=== PATIENT | male | born 1950 | race Caucasian/White ===

== ENCOUNTER 2022-12-17 10:45 | Outpatient (OUT) | payer OTHER, SELFPAY ==
--- NOTE | 2022-12-17 11:13 | XR_ITS ---
[address] [address] Patient Name: IVIS GAN MRN: [id number] date: 1950 Sex: M Assigned Patient Location: [facility] Current Patient Location: [facility] Accession/Order Number: [id number] Exam Date: 12/17/2022 11:06 Report Date: 12/17/2022 11:38 At the request of: SHAIKH MARY Procedure: XR clavicle RT PROCEDURE: XR clavicle RT COMPARISON: None. HISTORY: Pain in clavicular joint M25.519 FINDINGS: BONES:No acute fracture or dislocation. Moderate glenohumeral and acromioclavicular joint osteoarthropathy with joint space narrowing marginal osteophyte formation. Bulky heterotopic ossification superior acromioclavicular joint SOFT TISSUES:Negative. No visible soft tissue swelling. EFFUSION:None visible. OTHER: Negative. IMPRESSION: Osteoarthritis Electronically authenticated by: ALEKSANDAR JOSEPH Date: 12/17/2022 11:38
== END 2022-12-17 10:46 | disposition home or self-care (01) ==
LOC: RAD 10:58
PROVIDERS: PCP Internal Medicine; Visit Provider Internal Medicine
DX: M25.511 Pain in right shoulder (principal); M19.011 Primary osteoarthritis, right shoulder
CPT/HCPCS: 73000

== ENCOUNTER 2023-02-17 08:52 | Outpatient (OUT) | payer OTHER, SELFPAY ==
--- NOTE | 2023-02-17 09:03 | ECG_ITS ---
[facility] Test Date: 2023-02-17 Pat Name: IVIS GAN Department: Room: - Gender: Male Founding Partner: : 1950 Requested By: [id number] Order Number: [id number] Reading MD: ANABEL PAEZ Measurements Intervals [place] Rate: 60 P: 59 [place]: 187 QRS: 60 QRSD: 95 T: 45 QT: 420 QTc: 420 Interpretive Statements SINUS RHYTHM WITH SINUS ARRHYTHMIA No previous ECG available for comparison Electronically Signed On 02-18-2023 7:12:30 EDT by ANABEL PAEZ
[2023-02-17 09:11] LABS: Basophils Absolute Auto 0.1 10^3/uL (0.0-0.1); Basophils Percent Auto 0.7 % (0.2-2.0); Eosinophils Absolute Auto 0.2 10^3/uL (0.0-0.7); Eosinophils Percent Auto 3.2 % (0.9-7.0); Hematocrit 40.7 % (42.0-54.0); Hemoglobin 12.9 g/dL (14.0-18.0); Immature Granulocytes Abs Auto 0.03 10^3/uL (0.00-0.03); Immature Granulocytes Pct Auto 0.4 % (0.0-0.5); Lymphocytes Absolute Auto 1.5 10^3/uL (1.2-3.8); Lymphocytes Percent Auto 21.7 % (20.5-60.0); Mean Corpuscular HGB Conc 31.7 g/dL (29.9-35.2); Mean Corpuscular Hemoglobin 26.4 pg (25.9-34.0); Mean Corpuscular Volume 83.4 fL (80.0-94.0); Mean Platelet Volume 10.2 fL (9.5-13.5); Monocytes Absolute Auto 0.5 10^3/uL (0.3-0.8); Monocytes Percent Auto 7.5 % (1.7-12.0); Neutrophils Absolute Auto 4.5 10^3/uL (1.4-6.5); Neutrophils Percent Auto 66.5 % (43.0-75.0); Platelet Count 255 10^3/uL (150-450); Red Blood Count 4.88 10^6/uL (4.70-6.10); Red Cell Distribution Width 19.9 % (11.0-15.0); White Blood Count 6.8 10^3/uL (4.0-11.0)
[2023-02-17 09:34] LABS: Alanine Aminotransferase 20 U/L (16-63); Albumin Globulin Ratio 0.9; Albumin Level 3.3 g/dL (3.4-5.0); Alkaline Phosphatase 101 U/L (46-116); Anion Gap 12.9; Aspartate Amino Transferase 23 U/L (15-37); BUN Creatinine Ratio 14.5; Bilirubin Total 0.4 mg/dL (0.2-1.0); Calcium 8.8 mg/dL (8.5-10.1); Carbon Dioxide 26.5 mmol/L (21.0-32.0); Chloride 105 mmol/L (98-107); Estimated GFR (African America >60 (>=60); Estimated GFR (Non-African Ame >60 (>=60); Globulin 3.7 g/dL; Glucose 106 mg/dL (74-106); Potassium 4.4 mmol/L (3.5-5.1); Sodium 140 mmol/L (136-145)
[2023-02-17 09:35] LABS: INR 0.98; Partial Thromboplastin Time 28.5 sec (22.3-36.2); Prothrombin Time 10.4 sec (9.0-11.6)
== END 2023-02-17 08:53 | disposition home or self-care (01) ==
LOC: LAB 08:54
PROVIDERS: PCP Internal Medicine; Visit Provider Orthopaedic Surgery
DX: Z01.818 Encounter for other preprocedural examination (principal); Z79.82 Long term (current) use of aspirin
CPT/HCPCS: 36415; 80053; 85025; 85610; 85730; 93005

== ENCOUNTER 2023-03-03 11:24 | Outpatient (OUT) | payer OTHER, SELFPAY ==
--- NOTE | 2023-03-03 12:20 | PM.PRESUREVA ---
History of Present Illness History of Present Illness Chief complaint: right carpal tunnel syndrome Narrative: Patient presents for preadmission testing. Please see HPI from Dr. Ortega dated 02/17/2023. Review of Systems ROS Narrative Please see ROS from Dr. Ortega dated 02/09/2023. [facility] Medical History (Updated 03/03/23 @ 11:45 by Erica Zimmerman NP) (2019) Surgical History (Updated 03/03/23 @ 12:19 by Erica Zimmerman NP) Family History (Updated 03/03/23 @ 11:42 by Erica Zimmerman NP) Other Family history of breast cancer Social History (Updated 03/03/23 @ 11:37 by Erica Zimmerman NP) Within the past year, how often did you have a drink containing alcohol: 4 or more times a week Within the past year, how many standard drinks containing alcohol did you have on a typical day: 5 or 6 Smoking status: Former smoker Non-prescribed substance use: denies use Highest level of school completed/degree received: high school graduate Meds Home Medications and Allergies Home Medications Medication Instructions Recorded Confirmed Type albuterol sulfate 90 mcg/actuation 2 inh inhalation Q6H PRN shortness 03/03/23 03/03/23 History aerosol inhaler of breath or wheezing aspirin 81 mg chewable tablet 1 tab PO QDAY 03/03/23 03/03/23 History budesonide 0.25 mg/2 mL suspension 0.25 mg inhalation Q12H 03/03/23 03/03/23 History for nebulization citalopram 20 mg tablet 20 mg PO QDAY 03/03/23 03/03/23 History losartan 50 mg tablet 50 mg PO QDAY 03/03/23 03/03/23 History pregabalin 150 mg capsule 150 mg PO Q8H 03/03/23 03/03/23 History ropinirole 0.5 mg tablet 0.5 mg PO QPM 03/03/23 03/03/23 History rosuvastatin 20 mg tablet 20 mg PO QDAY 03/03/23 03/03/23 History tamsulosin 0.4 mg capsule 0.4 mg PO Q24H 03/03/23 03/03/23 History Allergies Allergy/AdvReac Type Severity Reaction Status Date / Time baclofen Allergy Verified 03/03/23 11:31 cyclobenzaprine Allergy Verified 03/03/23 11:31 [From Flexeril] onabotulinumtoxinA Allergy pain Verified 03/03/23 11:31 [From Botox] Exam Narrative Exam Narrative: Constitutional: Awake, alert, comfortable, well-appearing, nontoxic, interactive, vital signs as charted Head: Normocephalic, atraumatic ENT: Poor dentition Neck: Supple, normal appearance, normal range of motion, no meningeal signs, no lymphadenopathy Respiratory: No respiratory distress, breath sounds clear Cardiovascular: Regular rate and rhythm, strong and regular heart tones Musculoskeletal: Patient ambulates with an antalgic gait assisted by a cane, generalized left leg weakness, hand grasps strong and equal bilaterally Skin: No rashes or induration, no lesions, only visible skin inspected Neuro: Decreased sensation left upper and lower extremities Psychiatric: Oriented ?3, normal affect Assessment and Plan Assessment and Plan (1) Carpal tunnel syndrome: Plan Right endoscopic carpal tunnel release scheduled with Dr. Ortega 03/10/2023.
== END 2023-03-03 11:25 | disposition home or self-care (01) ==
LOC: PST 11:24
PROVIDERS: PCP Internal Medicine; Visit Provider Orthopaedic Surgery
DX: Z01.818 Encounter for other preprocedural examination (principal); G56.01 Carpal tunnel syndrome, right upper limb; Z79.01 Long term (current) use of anticoagulants
CPT/HCPCS: 80053; 85610; 85730; G0463

== ENCOUNTER 2023-03-10 09:56 | Day surgery (SDC) | payer OTHER, SELFPAY ==
[2023-03-03 12:09] VITALS: BP 146/86; PULSE 71; RESP 20; TEMP 36.6; O2SAT 98; BMI 31.3
[2023-03-10] VITALS (11 sets, daily range): BP systolic 126–171; BP diastolic 52–92; PULSE 63–75; RESP 13–20; TEMP 36.2–36.3; O2SAT 94–98; BMI 31.3
[2023-03-10] MEDS: LACTATED RINGER'S SOLUTION 1,000 ML 50 ML IV (10:25)
[2023-03-10] MEDS: CEFAZOLIN SODIUM/DEXTROSE,ISO 2 GM/50 ML PIGGYBACK IV (11:40)
[2023-03-10] MEDS: BUPIVACAINE HCL 0.5% PF 50 MG/10 ML VIAL INJ (12:04)
[2023-03-10] MEDS: LIDOCAINE HCL 1%-EPINEPHRINE 1:100,000 10 ML MDV INJ (12:04)
--- NOTE | 2023-03-10 12:41 | PM.ORPRC ---
Procedure Note Date of procedure: 03/10/23 Pre-op diagnosis: Right carpal tunnel syndrome Post-op diagnosis: same as pre-op Procedure: Operation performed: Right endoscopic carpal tunnel release Procedure: After informed consent was obtained the patient was brought to the operating room where a general anesthetic was administered. A well-padded proximal arm tourniquet was placed in the right arm was prepped and draped in the usual sterile fashion. Using 5 mL 1% lidocaine with epinephrine and 5 mL 0.5% Marcaine plain local anesthetic was administered at the operative site. The arm was elevated, exsanguinated, and the tourniquet was inflated to 200 mmHg. A 1 cm incision was made in the distal wrist crease just ulnar to the palmaris longus. Blunt dissection was carried down to the forearm fascia and a U based flap was created in the fascia. Fascia was incised for 2 cm proximally under direct visualization. Attention was next turned to the endoscopic carpal tunnel release. Synovial elevator was used clear the underside of the transverse carpal ligament of soft tissue. Sequential dilators were placed. The endoscopic carpal tunnel release instrument was then placed transverse fibers were identified and incised from distal to proximal. Complete separation was achieved. Tourniquet is deflated. Hemostasis achieved with bipolar cautery. Wound was irrigated and closed with a nylon suture. Sterile dressing was placed. Patient was awakened and brought to the recovery in stable condition. There were no intraoperative or immediate postoperative complications. Anesthesia: [facility] Surgeon: London Ortega Estimated blood loss (mL): 2 Pathology: none sent Condition: stable Disposition: PACU
== END 2023-03-10 13:25 | disposition home or self-care (01) ==
PROVIDERS: PCP Internal Medicine; Visit Provider Orthopaedic Surgery
PROC: (CPT 29848; principal; 2023-03-10 11:00)
DX: G56.01 Carpal tunnel syndrome, right upper limb (principal); Z86.73 Personal history of transient ischemic attack (TIA), and cerebral infarction without residual deficits; Z79.82 Long term (current) use of aspirin; E78.00 Pure hypercholesterolemia, unspecified; I10 Essential (primary) hypertension; N40.0 Benign prostatic hyperplasia without lower urinary tract symptoms; G25.81 Restless legs syndrome; Z87.891 Personal history of nicotine dependence
CPT/HCPCS: 29848; J2704

== ENCOUNTER 2023-05-14 08:37 | Outpatient (OUT) | payer OTHER, SELFPAY ==
--- NOTE | 2023-05-14 08:41 | CT_ITS ---
[address] [address] Patient Name: IVIS GAN MRN: [id number] date: 1950 Sex: M Assigned Patient Location: CT Current Patient Location: Accession/Order Number: [id number] Exam Date: 05/14/2023 08:53 Report Date: 05/16/2023 07:24 At the request of: SHAIKH MARY Procedure: CT lung screening low-dose EXAMINATION: CT lung screening low-dose HISTORY: History Of Nicotine Dependence Z87.891 COMPARISON: No relevant comparison available. TECHNIQUE: Axial, Coronal, and Sagittal images were created without the administration of IV contrast material. Dose reduction techniques were achieved by using automated exposure control and/or adjustment of mA and/or kV according to patient size and/or use of iterative reconstruction technique. FINDINGS: LUNGS: Irregular opacity and stranding within posterior right costophrenic angle. Small subtle opacity within left lateral costophrenic angle. PLEURA: No mass, effusion, or pneumothorax. VASCULATURE: No abnormality. GURMEET: No mass or pathologic adenopathy. MEDIASTINUM: No mass or pathologic adenopathy. CARDIAC: Atherosclerotic coronary artery disease. No pericardial effusion. AORTA: No aneurysm or dissection. CHEST WALL: No mass or axillary adenopathy BONES: Subacute fractures of the posterior right 10th and 11th ribs. LIMITED ABDOMEN: No suspicious findings. Limited images of the upper abdomen. OTHER: Negative. CT/CT lung screening low-dose IMPRESSION: 1. Lung-RADS Category 3- Probably benign. Probably benign finding(s)- short term follow up suggested; includes nodules with a low likelihood of becoming a clinically active cancer. Six month LDCT. 2. Irregular opacity and stranding within posterior right lung base overlies the subacute right 10th and 11th rib fractures is suspected represents atelectasis or scarring. Follow-up to document clearing and/or stability is recommended. 3. Opacity within lateral left costophrenic angles also more suggestive of atelectasis. This could be evaluated on follow-up as well. Electronically authenticated by: IDA ZAFAR Date: 05/16/2023 07:24
== END 2023-05-14 08:38 | disposition home or self-care (01) ==
LOC: CT 08:37
PROVIDERS: PCP Internal Medicine; Visit Provider Internal Medicine
DX: Z87.891 Personal history of nicotine dependence (principal); G25.81 Restless legs syndrome; I10 Essential (primary) hypertension; E78.5 Hyperlipidemia, unspecified; R91.8 Other nonspecific abnormal finding of lung field
CPT/HCPCS: 71271

== ENCOUNTER 2023-05-14 09:06 | Outpatient (OUT) | payer OTHER, SELFPAY ==
[2023-05-14 09:24] LABS: Basophils Percent Auto 0.5 % (0.2-2.0); Eosinophils Absolute Auto 0.3 10^3/uL (0.0-0.7); Eosinophils Percent Auto 5.9 % (0.9-7.0); Hematocrit 40.6 % (42.0-54.0); Hemoglobin 12.9 g/dL (14.0-18.0); Immature Granulocytes Abs Auto 0.02 10^3/uL (0.00-0.03); Immature Granulocytes Pct Auto 0.3 % (0.0-0.5); Lymphocytes Absolute Auto 1.9 10^3/uL (1.2-3.8); Lymphocytes Percent Auto 32.1 % (20.5-60.0); Mean Corpuscular HGB Conc 31.8 g/dL (29.9-35.2); Mean Corpuscular Hemoglobin 28.1 pg (25.9-34.0); Mean Corpuscular Volume 88.5 fL (80.0-94.0); Mean Platelet Volume 10.9 fL (9.5-13.5); Monocytes Absolute Auto 0.4 10^3/uL (0.3-0.8); Monocytes Percent Auto 6.2 % (1.7-12.0); Neutrophils Absolute Auto 3.2 10^3/uL (1.4-6.5); Platelet Count 177 10^3/uL (150-450); Red Blood Count 4.59 10^6/uL (4.70-6.10); Red Cell Distribution Width 17.4 % (11.0-15.0); White Blood Count 5.8 10^3/uL (4.0-11.0)
[2023-05-14 10:06] LABS: Alanine Aminotransferase 20 U/L (16-63); Albumin Globulin Ratio 1.1; Albumin Level 3.3 g/dL (3.4-5.0); Alkaline Phosphatase 93 U/L (46-116); Anion Gap 12.3; Aspartate Amino Transferase 20 U/L (15-37); BUN Creatinine Ratio 11.1; Bilirubin Total 0.4 mg/dL (0.2-1.0); Calcium 8.4 mg/dL (8.5-10.1); Carbon Dioxide 28.7 mmol/L (21.0-32.0); Chloride 104 mmol/L (98-107); Cholesterol 92 mg/dL (<=200); Estimated GFR (African America >60 (>=60); Estimated GFR (Non-African Ame >60 (>=60); Globulin 3.1 g/dL; Glucose 93 mg/dL (74-106); HDL Cholesterol 47 mg/dL (40-60); Sodium 141 mmol/L (136-145); Total Protein 6.4 g/dL (6.4-8.2); Triglycerides 50 mg/dL (<=150)
== END 2023-05-14 09:07 | disposition home or self-care (01) ==
LOC: LAB 09:08
PROVIDERS: PCP Internal Medicine; Visit Provider Internal Medicine
DX: G25.81 Restless legs syndrome (principal); Z87.891 Personal history of nicotine dependence; I10 Essential (primary) hypertension; E78.5 Hyperlipidemia, unspecified; R91.8 Other nonspecific abnormal finding of lung field
CPT/HCPCS: 36415; 71271; 80053; 80061; 82728; 85025

== ENCOUNTER 2023-07-07 20:49 | Outpatient (OUT) | payer MEDICARE, SELFPAY ==
--- OUTSIDE RECORDS SUMMARY | 2023-07-07 20:53 | XMS_ITS | CCD ---
Author Name Unknown Address [address] [place] [address] Organization [facility] Care Team Providers Care Clinical Care Leader Name Role Phone SHAIKH HERNANDEZ Attending Unavailable Encounters Encounter Date Encounter Type Care Provider Facility Start: 06-24-2023 End: 06-24-2023 ambulatory SHAIKH MARY Not Available Payers Date Payer Category Payer Medicare [id number] 1950 Unknown [id number] Summary Purpose Family History No Family History Records Found Advance Directives No Advanced Directives Records Found Additional Source Comments (unrecognized sect ion and content) No Status Records Found INFORMATION SOURCE (unrecogn ized section and content) DATE CREATED AUTHOR 06/25/2023 [facility] EPIC FOR RECORDS PERTAINING TO PATIENTS WHO ARE OR HAVE BEEN ENROLLED IN A CHEMICAL DEPENDENCY/SUBSTANCEABUSE PROGRAM, SOME INFORMATION MAY BE OMITTED. This clinical summary was aggregated from multiple sources. Caution should be exercised in using it in the provision of clinical care. This summary normalizes information from multiple sources, and as a consequence, information in this document may materially change the coding, format and clinical context of patient data. In addition, data may be omitted in some cases. CLINICAL DECISIONS SHOULD BE BASED ON THE PRIMARY CLINICAL RECORDS. [facility] [employer] provides no warranty or guarantee of the accuracy or completeness of information in this document.
== END 2023-07-07 20:50 | disposition home or self-care (01) ==
LOC: SLEEP 20:51
PROVIDERS: PCP Internal Medicine; Visit Provider Internal Medicine
DX: G47.33 Obstructive sleep apnea (adult) (pediatric) (principal)
CPT/HCPCS: 95811

== ENCOUNTER 2023-07-08 12:36 | Outpatient (OUT) | payer MEDICARE, SELFPAY ==
--- OUTSIDE RECORDS SUMMARY | 2023-07-08 12:39 | XMS_ITS | CCD ---
Author Name Unknown Address [address] [place] [address] Organization [facility] Care Team Providers Care Orthophotography Technician Name Role Phone SHAIKH HERNANDEZ Attending Unavailable Encounters Encounter Date Encounter Type Care Provider Facility Start: 06-24-2023 End: 06-24-2023 ambulatory SHAIKH MARY Not Available Payers Date Payer Category Payer Medicare [id number] 1950 Unknown [id number] Summary Purpose Family History No Family History Records Found Advance Directives No Advanced Directives Records Found Additional Source Comments (unrecognized sect ion and content) No Status Records Found INFORMATION SOURCE (unrecogn ized section and content) DATE CREATED AUTHOR 06/25/2023 [facility] EPIC FOR RECORDS PERTAINING TO PATIENTS [...] BE BASED ON THE PRIMARY CLINICAL RECORDS. [facility] [employer] provides no warranty or guarantee of the accuracy or completeness of information in this document.
--- NOTE | 2023-07-08 12:47 | FL_ITS ---
[address] [address] Patient Name: IVIS GAN MRN: [id number] date: 1950 Sex: M Assigned Patient Location: [place] Current Patient Location: [place] Accession/Order Number: [id number] Exam Date: 07/08/2023 13:15 Report Date: 07/08/2023 14:01 At the request of: SHAIKH MARY Procedure: FL modified barium swallow EXAMINATION: FL modified barium swallow HISTORY: Oropharyngeal dysphagia R13.12 COMPARISON: No relevant comparison available. TECHNIQUE: A swallowing evaluation was performed with fluoroscopy in the usual manner. Standard level fluoroscopic mode of operation utilized. Speech pathology was present. The procedure was recorded FINDINGS: ORAL PHASE: Normal deglutition. PHARYNGEAL PHASE: Normal swallowing. ASPIRATION: None. STRUCTURE: Normal. No visible obstruction, stricture, or dilatation. OTHER: Negative. FL/FL modified barium swallow IMPRESSION: Normal examination. Electronically authenticated by: ALEKSANDAR JOSEPH Date: 07/08/2023 14:01
== END 2023-07-08 12:37 | disposition home or self-care (01) ==
LOC: FL 12:38
PROVIDERS: PCP Internal Medicine; Visit Provider Internal Medicine
DX: R13.12 Dysphagia, oropharyngeal phase (principal)
CPT/HCPCS: 74230; 92611

== ENCOUNTER 2023-08-01 10:41 | Outpatient (OUT) | payer MEDICARE, SELFPAY ==
--- OUTSIDE RECORDS SUMMARY | 2023-08-01 10:52 | XMS_ITS | CCD ---
Author Name Unknown Address [address] [place] [address] Organization [facility] Care Team Providers Care Adapted Physical Education Teacher Name Role Phone SHAIKH HERNANDEZ Attending Unavailable Encounters Encounter Date Encounter Type Care Provider Facility Start: 06-24-2023 End: 06-24-2023 ambulatory SHAIKH MARY Not Available Payers Date Payer Category Payer Medicare [id number] 1950 Unknown [id number] Summary Purpose Family History No Family History Records Found Advance Directives No Advanced Directives Records Found Additional Source Comments (unrecognized sect ion and content) No Status Records Found INFORMATION SOURCE (unrecogn ized section and content) DATE CREATED AUTHOR 06/25/2023 [facility] EPIC FOR RECORDS PERTAINING TO [...] BE BASED ON THE PRIMARY CLINICAL RECORDS. [facility] [employer] provides no warranty or guarantee of the accuracy or completeness of information in this document.
[2023-08-01 12:23] LABS: Percent Iron Saturation 28.9 %
[2023-08-02 10:11] LABS: Transferrin 228 mg/dL (177-329)
== END 2023-08-01 10:42 | disposition home or self-care (01) ==
LOC: LAB 10:42
PROVIDERS: PCP Internal Medicine; Visit Provider Internal Medicine
DX: D50.9 Iron deficiency anemia, unspecified (principal)
CPT/HCPCS: 36415; 82728; 83540; 83550; 84466

== ENCOUNTER 2023-08-26 11:20 | Outpatient (OUT) | payer MEDICARE, SELFPAY ==
--- OUTSIDE RECORDS SUMMARY | 2023-08-26 11:23 | XMS_ITS | CCD ---
Author Name Unknown Address [address] [facility] [address] [place] [address] Organization [facility] Care Team Providers Care Laundry Aid Name Role Phone SHAIKH HERNANDEZ Attending Unavailable Shaikh Hernandez MD Primary Care Provider Allergies Allergy Classification Reported Allergen(s) Allergy Type Date of Onset Reaction(s) Facility (1 source) Baclofen Drug Allergy 3 [facility] Work Phone: (1 source) Botulinum Toxin Type A Drug Allergy 3 [facility] (1 source) cyclobenzaprine Drug Allergy 3 [facility] (1 source) gabapentin Drug Allergy 3 [facility] Medications Current Medications Medication Drug Class(es) Dates Sig (Normalized) Sig (Original) [id number] 200 actuat albuterol 0.09 mg/actuat metered dose inhaler (1 source) beta2-Adrenergic Agonist Start: 10-22-2022 Ventolin HFA 108 (90 Base) MCG/ACT inhaler every 4 (four) hours. 0 10/22/2022 Active aspirin 81 mg chewable tablet (1 source) Platelet Aggregation Inhibitor, Nonsteroidal Anti-inflammatory Drug Start: 12-25-2022 take 1 tablet by mouth once daily Aspirin Low Dose 81 MG chewable tablet CHEW 1 (ONE) TABLET BY MOUTH DAILY 0 12/25/2022 Active citalopram 20 mg oral tablet (1 source) Serotonin Reuptake Inhibitor Start: 06-12-2023 take 1 tablet by mouth once daily citalopram (CeleXA) 20 MG tablet Indications: Anxiety disorder, unspecified TAKE 1 TABLET BY MOUTH DAILY 100 tablet 0 06/12/2023 Active ferrous sulfate 325 mg oral tablet (2 sources) Start: 05-19-2023 End: 09-01-2023 take 1 tablet by mouth at mealtime ferrous sulfate (FerrouSul) 325 (65 Fe) MG tablet Indications: Iron deficiency anemia, unspecified iron deficiency anemia type Take 1 tablet (325 mg) by mouth in the morning. Take with meals. 30 tablet 2 06/03/2023 09/01/2023 Active losartan potassium 50 mg oral tablet (1 source) Angiotensin 2 Receptor Junie Start: 07-15-2022 losartan (Cozaar) 50 MG tablet 1 (one) time each day at the same time. 0 07/15/2022 Active pregabalin 150 mg oral capsule (1 source) Start: 10-30-2022 take 1 capsule by mouth in the morning, then take 1 capsule by mouth in the evening, then take 1 capsule by mouth at bedtime pregabalin (Lyrica) 150 MG capsule Take 150 mg by mouth in the morning and 150 mg in the evening and 150 mg before bedtime. 0 10/30/2022 Active rOPINIRole 2 mg oral tablet (1 source) Nonergot Dopamine Agonist Start: 06-12-2023 End: 12-09-2023 take 0.5 tablet by mouth once daily before mealtime, then take 1 tablet by mouth at bedtime rOPINIRole (Requip) 2 MG tablet Indications: Restless Leg Syndrome Take 0.5 tablets (1 mg) by mouth Daily before meals AND 1 tablet (2 mg) at bedtime. 135 tablet 1 06/12/2023 12/09/2023 Active rosuvastatin calcium 20 mg oral tablet (1 source) HMG-CoA Reductase Inhibitor Start: 07-15-2022 rosuvastatin (Crestor) 20 MG tablet 1 (one) time each day at the same time. 0 07/15/2022 Active tamsulosin hydrochloride 0.4 mg oral capsule (1 source) alpha-Adrenergic Junie Start: 07-15-2022 tamsulosin (Flomax) 0.4 MG 24 hr capsule 1 capsule 1 (one) time each day at the same time. 0 07/15/2022 Active Problems Problem Classification Problem Date Documented Da te Episodic/Chronic Anxiety disorders (1 source) Generalized anxiety disorder; Translations: [Generalized anxiety disorder] Onset: 06-24-2023 06-24-2023 Chronic Chronic obstructive pulmonary disease and bronchiectasis (1 source) Chronic obstructive lung disease; Translations: [Chronic obstructive pulmonary disease, unspecified] Onset: 08-29-2022 06-24-2023 Chronic Deficiency and other anemia (1 source) Iron deficiency anemia; Translations: [Iron deficiency anemia, unspecified] Onset: 06-24-2023 06-24-2023 Episodic Disorders of lipid metabolism (1 source) Hyperlipidemia; Translations: [Other hyperlipidemia] Onset: 06-24-2023 06-24-2023 Chronic Hyperplasia of prostate (1 source) Benign prostatic hyperplasia; Translations: [Benign prostatic hyperplasia without lower urinary tract symptoms] Onset: 06-24-2023 06-24-2023 Chronic Late effects of cerebrovascular disease (1 source) History of cerebrovascular accident with residual deficit; Translations: [Unspecified sequelae of cerebral infarction] Onset: 06-24-2023 06-24-2023 Chronic Other gastrointestinal disorders (1 source) Oropharyngeal dysphagia; Translations: [Dysphagia, oropharyngeal phase] Onset: 06-24-2023 06-24-2023 Episodic Other hereditary and degenerative nervous system conditions (1 source) Restless legs; Translations: [Restless legs syndrome] Onset: 06-24-2023 06-24-2023 Chronic Other screening for suspected conditions (not mental disorders or infectious disease) (1 source) CT of chest abnormal; Translations: [Abnormal findings on diagnostic imaging of other specified body structures] Onset: 06-24-2023 06-24-2023 Chronic Residual codes; unclassified (1 source) Obstructive sleep apnea syndrome; Translations: [Obstructive sleep apnea (adult) (pediatric)] Onset: 08-29-2022 06-24-2023 Chronic Results Test Name Value Interpretation Reference Range Facil ity [facility] TIBCon 2023 [facility] IRON 76.0 ug/dL 65.0 - 175.0 ug/dL [facility] PERCENT IRON SATURATION 28.9 % [facility] TB TOTAL IRON BINDING CAPACITY 263.0 ug/dL 250.0 - 450.0 ug/dL [facility] Encounters Encounter Date Encounter Type Care Provider Facility Start: 08-01-2023 [facility] Result Encounter Shaikh Mary ROE Work Phone: [facility] External Department Unsolicited Start: 08-01-2023 [facility] Result Encounter Shaikh Mary ROE Work Phone: [facility] External Department Unsolicited Start: 06-24-2023 End: 06-24-2023 ambulatory SHAIKH MARY Not Available Procedures Date Procedure Procedure Detail Performing Clinician Start: 08-01-2023 [facility] Moustapha Hernandez MD Work Phone: Plan of Treatment Date Care Activity Detail Author Start: 08-25-2023 End: 08-25-2023 Patient encounter procedure 08/25/2023 9:30 AM EST Office Visit [facility] [address] [place] [address] Shaikh Hernandez MD [address] [place] [id number] [facility] Start: 1956 Pneumococcal Vaccine : 65+ Years (1 - PCV) Pneumococcal Vaccine: 65+ Years (1 - PCV) [facility] Start: 1950 Medicare Annual Well ness (AWV) Medicare Annual Wellness (AWV) [facility] Start: 1950 Screening for malign ant neoplasm of colon [facility] Payers Date Payer Category Payer Medicare [id number] 2023 Medicare AETNA MEDICARE A DVANTAGE AETNA MEDICARE REPLACEMENT [id number] 2023-Present [address] [place] [address] [id number] 2022 Unknown [employer] [id number] 2022-Present [address] [place] [address] [id number] 1950 Unknown [id number] Social History Date Type Detail Facility [facility]: [facility] End: 06-23-2019 History of tobacco use Current smoker [facility] End: 06-23-2019 History of tobacco use Cigarette Smoker [facility] Start: 06-24-2023 Tobacco use and exposure Smokeless t obacco non-user [facility] Start: 06-24-2023 Alcohol intake Current drinke r of alcohol (finding) [facility] Start: 06-24-2023 History of Social function [facility] Start: 06-24-2023 Tobacco use panel [facility] Start: 06-24-2023 Alcohol Comment [facility]ASSIONAL [facility] Start: 1950 Sex Assigned At Not on file [facility] Summary Purpose Family History No Family History Records Found Advance Directives No Advanced Directives Records Found Additional Source Comments (unrecognized sect ion and content) No Status Records Found INFORMATION SOURCE (unrecogn ized section and content) DATE CREATED AUTHOR 06/25/2023 [facility] Care Teams (unrecognized sec tion and content) Laundry Aid Relationship Specialty Start Date End Date Shaikh Hernandez MD PCP - General Internal Medicine 01/20/23 FOR RECORDS PERTAINING TO PATIENTS WHO ARE [...] BE BASED ON THE PRIMARY CLINICAL RECORDS. [email or web address] provides no warranty or guarantee of the accuracy or completeness of information in this document.
[2023-08-26 11:39] LABS: Basophils Absolute Auto 0.1 10^3/uL (0.0-0.1); Basophils Percent Auto 0.6 % (0.2-2.0); Eosinophils Absolute Auto 0.2 10^3/uL (0.0-0.7); Eosinophils Percent Auto 2.3 % (0.9-7.0); Hematocrit 43.8 % (42.0-54.0); Hemoglobin 14.2 g/dL (14.0-18.0); Immature Granulocytes Abs Auto 0.02 10^3/uL (0.00-0.03); Immature Granulocytes Pct Auto 0.2 % (0.0-0.5); Lymphocytes Absolute Auto 1.5 10^3/uL (1.2-3.8); Lymphocytes Percent Auto 17.9 % (20.5-60.0); Mean Corpuscular HGB Conc 32.4 g/dL (29.9-35.2); Mean Corpuscular Hemoglobin 30.5 pg (25.9-34.0); Mean Corpuscular Volume 94.2 fL (80.0-94.0); Monocytes Absolute Auto 0.7 10^3/uL (0.3-0.8); Monocytes Percent Auto 7.9 % (1.7-12.0); Neutrophils Percent Auto 71.1 % (43.0-75.0); Platelet Count 218 10^3/uL (150-450); Red Blood Count 4.65 10^6/uL (4.70-6.10); Red Cell Distribution Width 17.6 % (11.0-15.0); White Blood Count 8.4 10^3/uL (4.0-11.0)
[2023-08-26 12:36] LABS: Percent Iron Saturation 34.9 %
== END 2023-08-26 11:21 | disposition home or self-care (01) ==
LOC: LAB 11:21
PROVIDERS: PCP Internal Medicine; Visit Provider Internal Medicine
DX: D50.9 Iron deficiency anemia, unspecified (principal)
CPT/HCPCS: 36415; 82728; 83540; 83550; 85025

== ENCOUNTER 2023-12-31 10:07 | Outpatient (OUT) | payer MEDICARE, SELFPAY ==
[2023-12-31 10:20] LABS: Basophils Percent Auto 0.5 % (0.2-2.0); Eosinophils Absolute Auto 0.2 10^3/uL (0.0-0.7); Eosinophils Percent Auto 2.7 % (0.9-7.0); Hematocrit 43.8 % (42.0-54.0); Hemoglobin 14.4 g/dL (14.0-18.0); Immature Granulocytes Abs Auto 0.02 10^3/uL (0.00-0.03); Immature Granulocytes Pct Auto 0.3 % (0.0-0.5); Lymphocytes Absolute Auto 1.9 10^3/uL (1.2-3.8); Lymphocytes Percent Auto 24.6 % (20.5-60.0); Mean Corpuscular HGB Conc 32.9 g/dL (29.9-35.2); Mean Corpuscular Hemoglobin 31.4 pg (25.9-34.0); Mean Corpuscular Volume 95.4 fL (80.0-94.0); Mean Platelet Volume 9.7 fL (9.5-13.5); Monocytes Absolute Auto 0.6 10^3/uL (0.3-0.8); Monocytes Percent Auto 7.6 % (1.7-12.0); Neutrophils Percent Auto 64.3 % (43.0-75.0); Platelet Count 263 10^3/uL (150-450); Red Blood Count 4.59 10^6/uL (4.70-6.10); Red Cell Distribution Width 14.1 % (11.0-15.0); White Blood Count 7.8 10^3/uL (4.0-11.0)
[2023-12-31 11:09] LABS: Alanine Aminotransferase 24 U/L (16-63); Albumin Globulin Ratio 0.9; Albumin Level 3.3 g/dL (3.4-5.0); Alkaline Phosphatase 139 U/L (46-116); Anion Gap 10.5; Aspartate Amino Transferase 26 U/L (15-37); Bilirubin Total 0.5 mg/dL (0.2-1.0); Calcium 8.8 mg/dL (8.5-10.1); Carbon Dioxide 26.3 mmol/L (21.0-32.0); Chloride 106 mmol/L (98-107); Estimated GFR (African America >60 (>=60); Estimated GFR (Non-African Ame >60 (>=60); Globulin 3.8 g/dL; Glucose 105 mg/dL (74-106); Potassium 3.8 mmol/L (3.5-5.1); Sodium 139 mmol/L (136-145); Total Protein 7.1 g/dL (6.4-8.2)
== END 2023-12-31 10:08 | disposition home or self-care (01) ==
LOC: LAB 10:10
PROVIDERS: PCP Nurse Practitioner Family; Visit Provider Internal Medicine
DX: C13.9 Malignant neoplasm of hypopharynx, unspecified (principal)
CPT/HCPCS: 36415; 80053; 85025

== ENCOUNTER 2024-03-18 10:48 | Outpatient (RCR) | payer MEDICARE, SELFPAY | END 2024-03-19 17:31 | disposition home or self-care (01) | LOC: ST 10:48 | PROVIDERS: PCP Nurse Practitioner Family | DX: C13.9 Malignant neoplasm of hypopharynx, unspecified (principal); R13.13 Dysphagia, pharyngeal phase | CPT/HCPCS: 92526; 92610 ==

== ENCOUNTER 2024-04-09 14:03 | Outpatient (OUT) | payer MEDICARE, SELFPAY ==
--- OUTSIDE RECORDS SUMMARY | 2024-04-09 14:11 | XMS_ITS | CCD ---
Author Organization [facility] Care Team Providers Care Accountant Property Name Role Phone Shaikh Ruiz MD Primary Care Provider MARY LOU Liu Primary Care Provider MD Vinicio Tamez Attending Provider DO Jaswant Zaidi Attending Provider MD Sweetie Mirza Attending Provider MARY LOU Law Attending Provider DO Jaswant Zaidi Referring Provider DO Jaswant Zaidi Referring Provider Ruddy LEAL, DO Nabil Castaneda Attending Provider [phone] MD Sweetie Mirza Attending Provider DO Jaswant Zaidi Referring Provider [phone] Ruddy LEAL, DO Nabil J Attending Provider DO Jaswant Zaidi Referring Provider Ruddy II, DO Nabil J Attending Provider DO Jaswant Zaidi Referring Provider Ruddy LEAL, DO Nabil Castaneda Attending Provider [phone] MD Sweetie Mirza Attending Provider DO Jaswant Zaidi Referring Provider Ruddy LEAL, DO Nabil J Attending Provider [phone] DO Shanelle Mallory Attending Provider Dyan, DO Michaud Referring Provider DO Nabil Fox II Attending Provider Murcielo, DO Michaud Referring Provider Murcielo, DO Jaswant Referring Provider [phone] SHAIKH RUIZ Attending Unavailable DYAN, JASWANT Aguero Attending Unavailable DYAN, JASWANT Aguero Referring Unavailable DYAN, JASWANT Aguero Attending Unavailable DYAN, JASWANT Aguero Attending Unavailable VINICIO TAMEZ Referring Unavailable ERICA GAINES Attending Unavailable DYAN, JASWANT Aguero Attending Unavailable VINICIO TAMEZ Referring Unavailable SHANELLE MALLORY Attending Unavailable SHANELLE MALLORY Attending Unavailable DYAN, JASWANT Aguero Attending Unavailable MURCIELO, JASWANT Aguero Attending Unavailable Rohrbacher, Perlita Primary Care Unavailable Dyan, Jaswant Attending Unavailable Jaswant Zaidi Admitting Unavailable Shanelle Mallory Attending Unavailable Shanelle Mallory Admitting Unavailable Rohrbacher, Perlita Primary Care Unavailable Rohrbacher, Perlita Primary Care Unavailable Vinicio Tamez Attending Unavailable Vinicio Tamez Admitting Unavailable Ani, Deirdre Beverley Attending Unavailable Ani, Deirdre M Admitting Unavailable Rohrbacher, Perlita Primary Care Unavailable Rohrbacher, Perlita Primary Care Unavailable Ani, Deirdre M Attending Unavailable Ani, Deirdre M Admitting Unavailable Rohrbacher, Perlita Primary Care Unavailable Ani, Deirdre M Attending Unavailable Ani, Deirdre M Admitting Unavailable Rohrbacher, Perlita Primary Care Unavailable Ani, Deirdre M Attending Unavailable Ani, Deirdre M Admitting Unavailable Rohrbacher, Perlita Primary Care Unavailable Ani, Deirdre M Attending Unavailable Ani, Deirdre M Admitting Unavailable Ani, Deirdre M Attending Unavailable Rohrbacher, Perlita Primary Care Unavailable Ani, Deirdre M Admitting Unavailable Ani, Deirdre M Attending Unavailable Ani, Deirdre M Admitting Unavailable Rohrbacher, Perlita Primary Care Unavailable Rohrbacher, [facility] Primary Care Unavailable Jaswant Zaidi Referring Unavailable Nabil Fox II Attending Unavaila ble Nabil Fox II Admitting Unavaila ble Rohrbacher, [facility] Primary Care Unavailable Sweetie Mirza R Admitting Unavailable Sweetie Mirza R Attending Unavailable Rohrbacher, Perlita Primary Care Unavailable Deirdre Law Admitting Unavailable Deirdre Law Attending Unavailable Rohrbacher, Perlita Primary Care Unavailable Jaswant Zaidi Attending Unavailable Jaswant Zaidi Admitting Unavailable Deirdre Law Attending Unavailable Deirdre Law M Admitting Unavailable Rohrbacher, [facility] Primary Care Unavailable Deirdre Law Attending Unavailable Deirdre Law M Admitting Unavailable Rohrbacher, [facility] Primary Care Unavailable Dyan, Jaswant Attending Unavailable Jaswant Zaidi Admitting Unavailable Barbararbacher, [employer] [facility] Primary Care Provider MD Sweetie Mirza Attending Provider DO Jaswant Zaidi Referring Provider [phone] DO Nabil Fox II Attending Provider Alexa LARSEN, Perlita A Primary Care Provider Vinicio Tamez MD Unavailable Jaswant Zaidi DO Unavailable Allergies Allergy Classification Reported Allergen(s) Allergy Type Date of Onset Reaction(s) Facility Anti-Epileptic Agents (1 source) gabapentin Drug Allergy 4 muscle stiffness [facility] Baclofen (1 source) Baclofen Drug Allergy 4 muscle [facility] Botulinum Toxin Type A (1 source) Botulinum Toxin Type A Drug Allergy 4 muscle [facility] cyclobenzaprine (1 source) cyclobenzaprine Drug Allergy 4 muscle [facility] tiZANidine (1 source) tiZANidine Drug Allergy 4 muscle [facility] (19 sources) Baclofen Drug Allergy 3 muscle stiffness [facility] Work Phone: (19 sources) Botulinum Toxin Type A Drug Allergy 3 muscle stiffness [facility] (19 sources) cyclobenzaprine Drug Allergy 3 muscle stiffness [facility] (19 sources) gabapentin Drug Allergy 3 muscle stiffness [facility] (19 sources) tiZANidine; Translations: [tizanidine] Drug Allergy 4 muscle stiffness [facility] (1 source) Baclofen Drug Allergy 4 [facility] Repository (1 source) Botulinum Toxin Type A Drug Allergy 4 [facility] Repository (1 source) cyclobenzaprine Drug Allergy 4 [facility] Repository (1 source) gabapentin Drug Allergy 4 [facility] Repository (3 sources) Botulinum Toxin Type A Drug Allergy 4 [facility] Medications Current Medications Medication Drug Class(es) Dates Sig (Normalized) Sig (Original) [id number] 200 actuat albuterol 0.09 mg/actuat metered dose inhaler (1 source) beta2-Adrenergic Agonist Start: 10-22-2022 Ventolin HFA 108 (90 Base) MCG/ACT inhaler every 4 (four) hours. 0 10/22/2022 Active citalopram 20 mg oral tablet (20 sources) Serotonin Reuptake Inhibitor Start: 06-12-2023 End: 03-04-2024 take 1 tablet by mouth once daily citalopram (CeleXA) 20 MG tablet Indications: Anxiety disorder, unspecified TAKE 1 TABLET BY MOUTH DAILY 100 tablet 06/12/2023 Active 72 hr fentaNYL 0.012 mg/hr transdermal system (11 sources) Opioid Agonist Start: 01-22-2024 fentaNYL (Duragesic) 12 MCG/HR Q72H 01/22/2024 Active Start: 01-22-2024 End: 02-24-2024 Fentanyl Discontinued 1 PATC H TRANSDERML Q72H 5 January 22, 2024 February 24, 2024 2:19pm fluconazole 100 mg oral tablet (11 sources) Azole Antifungal Start: 01-21-2024 fluconazole ( Diflucan) 100 MG tablet Daily 01/21/2024 Active Start: 01-21-2024 End: 03-04-2024 Fluconazole Discontinued 100 MG PO Daily January 21, 2024 12:00am March 04, 2024 10:05am Take two tablets on day 1 and one tablet thereafter. lisinopril 20 mg oral tablet (3 sources) Angiotensin Converting Enzyme Inhibitor take 1 tablet by mouth once daily lisinopril 20 MG tablet TAKE ONE TABLET BY MOUTH EVERY DAY for 30 Active losartan potassium 50 mg oral tablet (20 sources) Angiotensin 2 Receptor Junie Start: End: losartan (Cozaar) 50 MG tablet 1 (one) time each day at the same time. 07/15/2022 Active mometasone furoate 1 mg/ml topical cream (20 sources) Corticosteroid Start: 4 mometasone (Elocon) 0.1 % cream Daily 01/19/2024 Active Start: 12-18-2023 End: 03-04-2024 Mometasone Discontinued 1 AP PLIC TOPICAL Daily January 19, 2024 2:06pm March 04, 2024 10:06am Apply to radiation site, once a day, AFTER radiation treatments. ondansetron 8 mg disintegrating oral tablet (14 sources) Serotonin-3 Receptor Antagonist Start: 12-22-2023 End: 03-04-2024 ondansetron ODT (Zofran-ODT) 8 MG disintegrating tablet Every 8 hours 12/22/2023 Active oxyCODONE hydrochloride 1 mg/ml oral solution (20 sources) Opioid Agonist Start: 03-29-2024 Oxycodone Acti ve 10 MG FEEDTUBE Four times daily 500 March 29, 2024 Start: 03-23-2024 End: 03-29-2024 Oxycodone Discontinued 10 MG FEEDTUBE Every 4 hours 400 March 23, 2024 March 23, 2024 5:14pm Start: 02-24-2024 End: 03-23-2024 Oxycodone Discontinued 15 MG FEEDTUBE Every 4 hours 500 March 15, 2024 March 23, 2024 2:19pm Start: 02-02-2024 End: 02-24-2024 Oxycodone Discontinued 10 MG FEEDTUBE Every 4 hours 500 10 February 24, 2024 February 24, 2024 4:55pm Start: 01-07-2024 oxyCODONE (Martha icodone) 5 MG/5ML solution Take by mouth every 6 (six) hours if needed 01/07/2024 Active Start: 01-07-2024 End: 02-02-2024 take 5 mg by mouth every four to six hours Oxycodone Discontinued 5 MG PO EVERY 4-6 HOURS 250 7 January 19, 2024 February 02, 2024 12:59pm pregabalin 150 mg oral capsule (20 sources) Start: 09-01-2023 take 1 capsule by mouth three times daily pregabalin (Lyrica) 150 MG capsule Indications: Restless legs syndrome TAKE 1 CAPSULE BY MOUTH THREE TIMES DAILY 270 capsule 09/01/2023 Active Start: 08-27-2023 End: 11-24-2023 take 1 capsule by mouth twice daily in the morning, then take 2 capsules by mouth in the evening Pregabalin (Lyrica) 150 mg capsule Discontinued 150 MG PO Twice daily 180 90 November 24, 2023 9:53am November 24, 2023 9:56am Takes 1 in the am and 2 in the pm Start: 08-22-2023 End: 08-27-2023 take 1 capsule by mouth three times daily Pregabalin (Lyrica) 150 mg capsule Discontinued 150 MG PO Three times daily August 22, 2023 1:00am August 27, 2023 9:44pm Start: 10-30-2022 take 1 capsule by mo [facility] in the morning, then take 1 capsule by mouth in the evening, then take 1 capsule by mouth at bedtime pregabalin (Lyrica) 150 MG capsule Take 150 mg by mouth in the morning and 150 mg in the evening and 150 mg before bedtime. 0 10/30/2022 Active rOPINIRole 1 mg oral tablet (20 sources) Nonergot Dopamine Agonist Start: 08-27-2023 End: 03-15-2024 Ropinirole Active 1 MG PO .COMPLEX 360 90 March 15, 2024 2:12pm 1 tablet in am, 1 tablet in the afternoon and 2 tablets in pm Start: 08-22-2023 End: 08-27-2023 take 2 mg by mouth three times daily Ropinirole Discontinued 2 MG PO Three times daily August 22, 2023 1:00am August 27, 2023 9:49am Start: 06-12-2023 End: 12-09-2023 take 0.5 tablet by mouth once daily before mealtime, then take 1 tablet by mouth at bedtime rOPINIRole (Requip) 2 MG tablet Indications: Restless Leg Syndrome Take 0.5 tablets (1 mg) by mouth Daily before meals AND 1 tablet (2 mg) at bedtime. 135 tablet 1 06/12/2023 Active rosuvastatin calcium 20 mg oral tablet (20 sources) HMG-CoA Reductase Inhibitor Start: 07-15-2022 End: 03-04-2024 rosuvastatin (Crestor) 20 MG tablet 1 (one) time each day at the same time. 07/15/2022 Active 72 hr scopolamine 0.0139 mg/hr transdermal system (3 sources) Anticholinergic Start: 01-15-2024 scopolamine (Transderm-Scop) 1 mg/72 hr patch 72 hour patch apply one PATCH topically behind ear EVERY 3 DAYS FOR excessive secretions 01/15/2024 Active silver sulfADIAZINE 10 mg/ml topical cream (9 sources) Sulfonamide Antibacterial Start: 01-28-2024 silver sulfADIAZINE (Silvadene) 1 % cream APPLY TO THE AFFECTED AREA(S) topically TWICE DAILY until healed 01/28/2024 Active Completed/Discontinued Medications Medication Drug Class(es) Dates Sig (Normalized) Sig (Original) aspirin 81 mg delayed release oral tablet (20 sources) Platelet Aggregation Inhibitor, Nonsteroidal Anti-inflammatory Drug Start: 08-22-2023 End: 03-04-2024 take 81 mg by mouth once daily Aspirin Discontinued 81 MG PO Daily August 22, 2023 1:00am March 04, 2024 10:05am Start: 12-25-2022 take 1 tablet by kim once daily Aspirin Low Dose 81 MG chewable tablet CHEW 1 (ONE) TABLET BY MOUTH DAILY 12/25/2022 Active azithromycin 250 mg oral tablet (11 sources) Macrolide Antimicrobial Start: 01-07-2024 End: 02-03-2024 Azithromycin Discontinued 250 MG PO daily 6 January 07, 2024 12:00am February 03, 2024 11:02am Take 2 today and then 1 for the next 4 days ferrous sulfate 325 mg oral tablet (18 sources) Start: 05-19-2023 End: 03-04-2024 take 325 mg by mouth once daily Ferrous Sulfate Discontinued 325 MG PO Daily August 22, 2023 1:00am March 04, 2024 10:05am Magic Mouthwash W/Lidocaine 240 Ml Bottle (11 sources) Start: 01-07-2024 End: 03-04-2024 take 5 mL by mouth every six hours as needed Magic Mouthwash W/Lidocaine 240 Ml Bottle Discontinued 5 ML PO Four times daily January 07, 2024 12:00am March 04, 2024 10:06am Take 5ml every 6 hours as needed, SWISH AND SWALLOW. Start: 01-07-2024 take 5 mL by mouth e very six hours as needed Magic Mouthwash W/Lidocaine 240 Ml Bottle Active 5 ML PO Four times daily January 07, 2024 12:00am Take 5ml every 6 hours as needed, SWISH AND SWALLOW. Scopolamine Base (9 sources) Start: 01-14-2024 End: 03-04-2024 Scopolamine Base Discontinue d 1 PATCH TRANSDERML Q3D January 14, 2024 12:00am March 04, 2024 10:06am Apply one patch every 3 days, place patch behind ear. Start: 01-14-2024 Scopolamine Ba se Active 1 PATCH TRANSDERML Q3D January 14, 2024 12:00am Apply one patch every 3 days, place patch behind ear. Sod Picosulf-Mag Ox-Citric Ac (16 sources) Start: 08-22-2023 End: 11-11-2023 take 1 dose by mouth once daily in the evening Sod Picosulf-Mag Ox-Citric Ac (Clenpiq) 10 mg-3.5 gram- 12 gram/175 mL solution Discontinued 175 ML PO Daily August 22, 2023 1:00am November 11, 2023 9:20am Take first dose orally at 3 pm the day before colonoscopy, take second dose orally at 9 pm the day before colonoscopy tamsulosin hydrochloride 0.4 mg oral capsule (17 sources) alpha-Adrenerg ic Junie Start: 08-27-2023 End: 11-20-2023 take 0.4 mg by mouth once daily Tamsulosin Discontinued 0.4 MG PO Daily August 27, 2023 1:00am November 20, 2023 1:51pm Start: 07-15-2022 tamsulosin (Fl omax) 0.4 MG 24 hr capsule 1 capsule 1 (one) time each day at the same time. 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, unspecified] Onset: 12-08-2023 12-16-2023 Chronic Chronic obstructive pulmonary disease and bronchiectasis (4 sources) Chronic obstructive lung disease; Translations: [Chronic obstructive pulmonary disease, unspecified] Onset: 08-29-2022 06-24-2023 Chronic Chronic obstructive pulmonary disease and bronchiectasis (20 sources) Bronchitis; Translations: [Bronchitis, not specified as acute or chronic] Onset: 01-17-2024 01-07-2024 Episodic Diseases of mouth; excluding dental (20 sources) Excessive salivation; Translations: [Disturbances of salivary secretion] Onset: 01-17-2024 01-12-2024 Episodic Disorders of lipid metabolism (20 sources) Hyperlipidemia; Translations: [Other hyperlipidemia] Onset: 06-24-2023 06-24-2023 Chronic Genitourinary symptoms and ill-defined conditions (18 sources) Urgent desire to urinate; Translations: [Urgency of urination] 08-27-2023 Episodic Hyperplasia of prostate (4 sources) Benign prostatic hyperplasia; Translations: [Benign prostatic hyperplasia without lower urinary tract symptoms] Onset: 06-24-2023 06-24-2023 Chronic Late effects of cerebrovascular disease (4 sources) History of cerebrovascular accident with residual deficit; Translations: [Unspecified sequelae of cerebral infarction] Onset: 06-24-2023 06-24-2023 Chronic Occlusion or stenosis of precerebral arteries (3 sources) Right carotid artery stenosis; Translations: [Occlusion and stenosis of right carotid artery] Onset: 12-20-2023 12-20-2023 Chronic Other aftercare (14 sources) Patient encounter status; Translations: [Encounter for palliative care] Onset: 01-17-2024 01-07-2024 Episodic Other aftercare (12 sources) Encounter for palliative care; Translations: [Encounter for palliative care] Onset: 01-07-2024 01-07-2024 Episodic Other connective tissue disease (11 sources) Repeated falls; Translations: [History of fall] 11-11-2023 Episodic Other gastrointestinal disorders (3 sources) History of placement of gastrostomy tube; Translations: [Gastrostomy status] Onset: 03-30-2024 03-04-2024 Chronic Other gastrointestinal disorders (1 source) Gastrostomy status; Translations: [Gastrostomy status] 03-04-2024 Chronic Other gastrointestinal disorders (16 sources) Dysphagia; Translations: [Dysphagia, unspecified] 11-11-2023 Episodic Other gastrointestinal disorders (2 sources) Dysphagia, oropharyngeal phase; Translations: [Dysphagia, oropharyngeal phase] 08-22-2023 Episodic Other gastrointestinal disorders (13 sources) Dysphagia, unspecified; Translations: [Dysphagia, unspecified] Onset: 02-26-2024 11-11-2023 Episodic Other gastrointestinal disorders (10 sources) Constipation, unspecified; Translations: [Constipation, unspecified] Onset: 02-02-2024 02-02-2024 Episodic Other gastrointestinal disorders (1 source) Dysphagia, oral phase; Translations: [Dysphagia, oral phase] Onset: 02-03-2024 Episodic Other gastrointestinal disorders (3 sources) Oral phase dysphagia; Translations: [Dysphagia, oral phase] Onset: 01-29-2024 01-29-2024 Episodic Other hereditary and degenerative nervous system conditions (20 sources) Restless legs; Translations: [Restless legs syndrome] Onset: 06-24-2023 06-24-2023 Chronic Other hereditary and degenerative nervous system conditions (2 sources) Restless legs syndrome; Translations: [Restless legs syndrome (RLS)] 08-27-2023 Chronic Other nervous system disorders (14 sources) Pain due to neoplastic disease; Translations: [Neoplasm related pain (acute) (chronic)] Onset: 01-17-2024 01-07-2024 Chronic Other nervous system disorders (20 sources) Neoplasm related pain (acute) (chronic); Translations: [Neoplasm related pain (acute) (chronic)] Onset: 02-02-2024 01-07-2024 Chronic Other nervous system disorders (3 sources) Carpal tunnel syndrome of right wrist; Translations: [Carpal tunnel syndrome, right upper limb] Onset: 12-20-2023 12-20-2023 Chronic Other screening for suspected conditions (not mental disorders or infectious disease) (4 sources) CT of chest abnormal; Translations: [Abnormal findings on diagnostic imaging of other specified body structures] Onset: 06-24-2023 06-24-2023 Chronic Other upper respiratory disease (1 source) Other diseases of pharynx; Translations: [Other diseases of pharynx] Onset: 03-29-2024 Episodic Paralysis (6 sources) Left hemiparesis; Translations: [Hemiplegia, unspecified affecting left nondominant side] Onset: 12-02-2023 Resolved: 12-02-2023 12-20-2023 Chronic Residual codes; unclassified (4 sources) Obstructive sleep apnea syndrome; Translations: [Obstructive sleep apnea (adult) (pediatric)] Onset: 08-29-2022 06-24-2023 Chronic Residual codes; unclassified (3 sources) Periodic limb movement disorder; Translations: [Periodic limb movement disorder] Onset: 12-20-2023 12-20-2023 Chronic Residual codes; unclassified (2 sources) H/O: radiation exposure; Translations: [Personal history of irradiation] 03-30-2024 Episodic Unclassified (1 source) Cough, unspecified; Translations: [Cough, unspecified] Onset: 01-26-2024 Past or Other Problems Problem Classification Problem Date Documented Da te Episodic/Chronic Deficiency and other anemia (20 sources) Iron deficiency anemia; Translations: [Iron deficiency anemia, unspecified] Onset: 06-24-2023 06-24-2023 Episodic Deficiency and other anemia (3 sources) Iron deficiency anemia, unspecified; Translations: [Iron deficiency anemia, unspecified] Onset: 11-28-2023 08-22-2023 Episodic Essential hypertension (20 sources) Hypertensive disorder; Translations: [Essential (primary) hypertension] Onset: 12-02-2023 Resolved: 12-02-2023 08-27-2023 Chronic Mood disorders (20 sources) Depressive disorder; Translations: [Depression] Onset: 12-02-2023 Resolved: 12-02-2023 08-27-2023 Chronic Osteoarthritis (6 sources) Osteoarthritis of knee; Translations: [Osteoarthritis of knee, unspecified] Onset: 09-25-2021 Resolved: 12-02-2023 12-02-2023 Chronic Other connective tissue disease (18 sources) Recurrent falls ; Translations: [Repeated falls] Onset: 12-02-2023 Resolved: 12-02-2023 11-11-2023 Episodic Other gastrointestinal disorders (20 sources) Oropharyngeal dysphagia; Translations: [Dysphagia, oropharyngeal phase] Onset: 06-24-2023 06-24-2023 Episodic Other gastrointestinal disorders (11 sources) Constipation; Translations: [Constipation, unspecified] Onset: 02-21-2024 Resolved: 02-21-2024 02-02-2024 Episodic Other lower respiratory disease (17 sources) Cough; Translations: [Cough] Onset: 02-21-2024 Resolved: 02-21-2024 01-26-2024 Episodic Other nervous system disorders (3 sources) Paresthesia; Translations: [Paresthesia of skin] Onset: 12-20-2023 12-20-2023 Episodic Other upper respiratory disease (17 sources) Mass of head; Translations: [Other diseases of pharynx] Onset: 12-02-2023 Resolved: 12-02-2023 11-28-2023 Episodic Screening and history of mental health and substance abuse codes (3 sources) Tobacco use and exposure - finding; Translations: [Personal history of nicotine dependence] Onset: 12-02-2023 Resolved: 12-02-2023 12-02-2023 Episodic Results Test Name Value Interpretation Reference Range Facility Alanine aminotransferase [En zymatic activity/volume] in Serum or PlasmaOrdered By: Nabil Fox on 02-18-2024 ALT [Catalytic activity/Vol] 56 U/L High 7-52 [facility] Comment on above: Performed By: #### D IFF CBC, CMP ####[facility] [id number] Albumin [Mass/volume] in Ser um or Plasma by Bromocresol green (BCG) dye binding methoOrdered By: Nabil Fox on 02-18-2024 Albumin BCG dye [Mass/Vol] 3.3 g/dL Low 3.5-5.7 [facility] Alkaline phosphatase [Enzyma tic activity/volume] in Serum or PlasmaOrdered By: Nabil Fox on 02-18-2024 ALP [Catalytic activity/Vol] 154 U/L High 34-104 [facility] Comment on above: Performed By: #### D IFF CBC, CMP ####[id number] [place] [address] [facility] Anisocytosis [Presence] in B lood by Light microscopyOrdered By: Nabil Fox on 02-18-2024 Anisocytosis Ql (Bld) Slight Normal [facility] Comment on above: Performed By: #### D IFF CBC, CMP ####[address] Aspartate aminotransferase [ Enzymatic activity/volume] in Serum or PlasmaOrdered By: Nabil Fox on 02-18-2024 AST [Catalytic activity/Vol] 46 U/L High 13-39 [facility] Comment on above: Performed By: #### D IFF CBC, CMP ####[address] Basophils Auto (Bld) [#/Vol] Ordered By: Nabil Fox on 02-18-2024 Basophils (Bld) [#/Vol] N/A [facility] Basophils/100 WBC Auto (Bld) Ordered By: Nabil Fox on 02-18-2024 Basophils/100 WBC (Bld) N/A [facility] Basophils/100 leukocytes in Blood by Manual countOrdered By: Nabil Fox on 02-18-2024 Basophils/100 WBC (Bld) 2 % Normal 0-2 [facility] Comment on above: Performed By: #### D IFF CBC, CMP ####[place] [id number] [facility] Bilirubin.total [Mass/volume ] in Serum or PlasmaOrdered By: Nabil Fox on 02-18-2024 Bilirubin [Mass/Vol] 0.3 mg/dL Normal 0.3-1.0 [facility] Comment on above: Performed By: #### D IFF CBC, CMP ####[address] [address] [facility] Calcium [Mass/volume] in Ser um or PlasmaOrdered By: Nabil Fox on 02-18-2024 Calcium [Mass/Vol] 8.7 mg/dL Normal 8.6-10.3 [facility] Comment on above: Performed By: #### D IFF CBC, CMP ####[place] [id number] [facility] Carbon dioxide, total [Moles /volume] in Serum or PlasmaOrdered By: Nabil Fox on 02-18-2024 CO2 [Moles/Vol] 32.4 mmol/L High 21.0-31.0 [facility] Comment on above: Performed By: #### D IFF CBC, CMP ####[place] [id number] [facility] Chloride [Moles/volume] in S neeru or PlasmaOrdered By: Nabil Fox on 02-18-2024 Chloride [Moles/Vol] 98 mmol/L Normal 98-107 [facility] Comment on above: Performed By: #### D IFF CBC, CMP ####[address] [address] [facility] Comprehensive Metabolic Pane nehemiah 02-18-2024 Albumin [Mass/Vol] 3.3 g/dL Low 3.5-5.7 [facility] Comment on above: Performed By: #### D IFF CBC, CMP ####[place] [id number] [facility] Creatinine Clr Calc Pharmacy 87.45 Normal The Replaced By [facility] Comment on above: Result Comment: PERF ORMED BY: [facility] [address] [place] [id number] PATHOLOGIST CONCRETE CURER TRISTON MELGAR M.D. Performed By: #### D IFF CBC, CMP ####[address] [address] [facility] GFR/1.73 sq M.predicted MDRD (S/P/Bld) [Vol rate/Area] mL/min/{1.73_m2} Normal The Replaced By [facility] Comment on above: Performed By: #### D IFF CBC, CMP ####[address] [address] [facility] Creatinine [Mass/volume] in Serum or PlasmaOrdered By: Nabil Fox on 02-18-2024 Creatinine [Mass/Vol] 0.68 mg/dL Low 0.70-1.30 [facility] Comment on above: Performed By: #### D IFF CBC, CMP ####[address] [address] [facility] Diff and CBCon 02-18-2024 Giant Platelet Tally 1 /100{WBC} Normal The Replaced By [facility] Comment on above: Performed By: #### D IFF CBC, CMP ####[address] [address] [facility] Mean Corpuscular HGB Conc 33.5 g/dL Normal 32.5-35.6 The Replaced By [facility] Comment on above: Performed By: #### D IFF CBC, CMP ####[address] [address] [facility] Microcytosis Slight Normal The [facility] Comment on above: Performed By: #### D IFF CBC, CMP ####[address] [address] [facility] Myelocytes 1 % High 0-0 The Replaced By [facility] Comment on above: Performed By: #### D IFF CBC, CMP ####[address] [address] [facility] Platelet Estimate Normal Normal Normal The [facility] Comment on above: Performed By: #### D IFF CBC, CMP ####[address] [address] [facility] Platelet Morphology Normal Normal Normal The [facility] Comment on above: Result Comment: PERF ORMED BY: [facility] [address] [place] [id number] PATHOLOGIST CONCRETE CURER TRISTON MELGAR M.D. Performed By: #### D IFF CBC, CMP ####[facility] Polychromasia Slight Normal The [facility] Comment on above: Performed By: #### D IFF CBC, CMP ####[place] [address] [address] Reactive Lymphocytes 1 % Normal 0-12 The Replaced By [facility] Comment on above: Performed By: #### D IFF CBC, CMP ####[address] Eosinophils Auto (Bld) [#/Vo l]Ordered By: Nabil Fox on 02-18-2024 Eosinophils (Bld) [#/Vol] N/A [facility] Eosinophils/100 WBC Auto (Bl d)Ordered By: Nabil Fox on 02-18-2024 Eosinophils/100 WBC (Bld) N/A [facility] Erythrocyte distribution wid th [Ratio] by Automated countOrdered By: Nabil Fox on 02-18-2024 Erythrocyte distribution width (RBC) [Ratio] 17.1 % High 12.0-14.8 [facility] Comment on above: Performed By: #### D IFF CBC, CMP ####[address] Erythrocytes [#/volume] in B lood by Automated countOrdered By: Nabil Fox on 02-18-2024 RBC (Bld) [#/Vol] 3.92 10*6/uL Normal 3.90-5.60 [facility] Comment on above: Performed By: #### D IFF CBC, CMP ####[address] Giant platelets/100 leukocyt es [Ratio] in Blood by Manual countOrdered By: Nabil Fox on 02-18-2024 Giant platelets/100 WBC Manual cnt (Bld) [Ratio] 1 /100{WBC} [facility] Glucose [Mass/volume] in Ser um or PlasmaOrdered By: Nabil Fox on 02-18-2024 Glucose [Mass/Vol] 112 mg/dL High 70-100 [facility] Comment on above: ADA recommended refe rence rangeRandom Glucose Reference Range is dependent on time and content of last meal. Glucose of more than 200 mg/dL in a nonstressed, ambulatory subject supports the diagnosis of Diabetes Mellitus. Result Comment: Gerald om Glucose Reference Range is dependent on time and content of last meal. Glucose of more than 200 mg/dL in a nonstressed, ambulatory subject supports the diagnosis of Diabetes Mellitus. ADA recommended reference range Performed By: #### D IFF CBC, CMP ####[place] [address] [address] Hematocrit [Volume Fraction] of Blood by Automated countOrdered By: Nabil Fox on 02-18-2024 Hematocrit (Bld) [Volume fraction] 36.8 % Low 38.8-50.0 [facility] Comment on above: Performed By: #### D IFF CBC, CMP ####[address] Hemoglobin [Mass/volume] in BloodOrdered By: Nabil Fox on 02-18-2024 Hemoglobin (Bld) [Mass/Vol] 12.4 g/dL Low 13.0-17.0 [facility] Comment on above: Performed By: #### D IFF CBC, CMP ####[address] Leukocytes [#/volume] correc tejal for nucleated erythrocytes in Blood by Automated counOrdered By: Nabil Fox on 02-18-2024 WBC corrected for nucl RBC Auto (Bld) [#/Vol] 6.7 10*3/uL 4.1-10.5 [facility] Leukocytes [#/volume] in Blo od by Automated countOrdered By: Nabil Fox on 02-18-2024 WBC (Bld) [#/Vol] 6.7 10*3/uL Normal 4.1-10.5 [facility] Comment on above: Performed By: #### D IFF CBC, CMP ####[address] Lymphocytes Auto (Bld) [#/Vo l]Ordered By: Nabil Fox on 02-18-2024 Lymphocytes (Bld) [#/Vol] N/A [facility] Lymphocytes/100 WBC Auto (Bl d)Ordered By: Nabil Fox on 02-18-2024 Lymphocytes/100 WBC (Bld) N/A [facility] Lymphocytes/100 leukocytes i n Blood by Manual countOrdered By: Nabil Fox on 02-18-2024 Lymphocytes/100 WBC (Bld) 9 % Low 18-42 [facility] Comment on above: Performed By: #### D IFF CBC, CMP ####[address] MCH [Entitic mass] by Automa tejal countOrdered By: Nabil Fox on 02-18-2024 MCH (RBC) [Entitic mass] 31.5 pg Normal 27.5-35.2 [facility] Comment on above: Performed By: #### D IFF CBC, CMP ####[address] MCHC Auto (RBC) [Mass/Vol]Or dered By: Nabil Fox on 02-18-2024 MCHC (RBC) [Mass/Vol] 33.5 g/dL 32.5-35.6 [facility] MCV [Entitic volume] by Auto mated countOrdered By: Nabil Fox on 02-18-2024 MCV (RBC) [Entitic vol] 94.0 fL Normal 83.5-101 [facility] Comment on above: Performed By: #### D IFF CBC, CMP ####[place] [id number] [facility] Manual blood segmented neutr ophils/100 leukocytesOrdered By: Nabil Fox on 02-18-2024 Segmented neutrophils/100 WBC (Bld) 74 % High 50-70 [facility] Comment on above: Performed By: #### D IFF CBC, CMP ####[place] [id number] [facility] Microcytes LM Ql (Bld)Ordere d By: Nabil Fox on 02-18-2024 Microcytes Ql (Bld) Slight [facility] Monocytes Auto (Bld) [#/Vol] Ordered By: Nabil Fox on 02-18-2024 Monocytes (Bld) [#/Vol] N/A [facility] Monocytes/100 WBC Auto (Bld) Ordered By: Nabil Fox on 02-18-2024 Monocytes/100 WBC (Bld) N/A [facility] Monocytes/100 leukocytes in Blood by Manual countOrdered By: Nabil Fox on 02-18-2024 Monocytes/100 WBC (Bld) 13 % High 2-11 [facility] Comment on above: Performed By: #### D IFF CBC, CMP ####[facility] [id number] [place] [address] [facility] Myelocytes/100 WBC Manual cn t (Bld)Ordered By: Nabil Fox on 02-18-2024 Myelocytes/100 WBC (Bld) 1 % High 0-0 [facility] Neutrophils Auto (Bld) [#/Vo l]Ordered By: Nabil Fox on 02-18-2024 Neutrophils (Bld) [#/Vol] N/A [facility] Neutrophils/100 WBC Auto (Bl d)Ordered By: Nabil Fox on 02-18-2024 Neutrophils/100 WBC (Bld) N/A [facility] No Panel InformationOrdered By: Nabil Fox on 02-18-2024 Estimated GFR (CKD-EPI) > 60.0 mL/Min [facility] Creatinine Clearance (Chem 87.45 [facility] Nucleated erythrocytes [Pres ence] in Blood by Automated countOrdered By: Nabil Fox on 02-18-2024 Nucleated RBC Auto Ql (Bld) N/A [facility] Platelet adequacy [Presence] in Blood by Light microscopyOrdered By: Nabil Fox on 02-18-2024 Platelets LM Ql (Bld) Normal Normal [facility] Platelet mean volume [Entiti c volume] in Blood by Automated countOrdered By: Nabil Fox on 02-18-2024 Platelet mean volume (Bld) [Entitic vol] 7.4 fL Normal 6.6-10.1 [facility] Comment on above: Result Comment: PERF ORMED BY: [facility] [address] [place] [address] PATHOLOGIST CONCRETE CURER TRISTON MELGAR M.D. Performed By: #### D IFF CBC, CMP ####[place] [address] [address] Platelet morphology finding [Identifier] in BloodOrdered By: Nabil Fox on 02-18-2024 Platelet morphology finding Nom (Bld) Normal Normal [facility] Platelets [#/volume] in Bloo d by Automated countOrdered By: Nabil Fox on 02-18-2024 Platelets (Bld) [#/Vol] 435 10*3/uL Normal 150-450 [facility] Comment on above: Performed By: #### D IFF CBC, CMP ####[place] [address] [address] Polychromasia [Presence] in Blood by Light microscopyOrdered By: Nabil Fox on 02-18-2024 Polychromasia LM Ql (Bld) Slight [facility] Potassium [Moles/volume] in Serum or PlasmaOrdered By: Nabil Fox on 02-18-2024 Potassium [Moles/Vol] 4.6 mmol/L Normal 3.5-5.1 [facility] Comment on above: Performed By: #### D IFF CBC, CMP ####[address] Protein [Mass/volume] in Ser um or PlasmaOrdered By: Nabil Fox on 02-18-2024 Protein [Mass/Vol] 5.9 g/dL Low 6.4-8.9 [facility] Comment on above: Performed By: #### D IFF CBC, CMP ####[place] [address] [address] RBC morphologyOrdered By: Troy Fox on 02-18-2024 RBC morphology finding Nom (Bld) N/A [facility] Serum globulin measurement b y calculation (mass/volume)Ordered By: Nabil Fox on 02-18-2024 Globulin (S) [Mass/Vol] 2.6 g/dL Normal [facility] Comment on above: Performed By: #### D IFF CBC, CMP ####[place] [address] [address] Serum or plasma albumin/glob ulin mass ratioOrdered By: Nabil Fox on 02-18-2024 Albumin/Globulin [Mass ratio] 1.3 {ratio} Normal [facility] Comment on above: Performed By: #### D IFF CBC, CMP ####[address] Serum or plasma anion gap de terminationOrdered By: Nabil Fox on 02-18-2024 Anion gap [Moles/Vol] 11.2 mmol/L Normal 6.0-15.0 [facility] Comment on above: Performed By: #### D IFF CBC, CMP ####[address] Sodium [Moles/volume] in Ser um or PlasmaOrdered By: Nabil Fox on 02-18-2024 Sodium [Moles/Vol] 137 mmol/L Normal 136-145 [facility] Comment on above: Performed By: #### D IFF CBC, CMP ####[address] Urea nitrogen [Mass/volume] in Serum or PlasmaOrdered By: Nabil Fox on 02-18-2024 Urea nitrogen [Mass/Vol] 16 mg/dL Normal 7-25 [facility] Comment on above: Performed By: #### D IFF CBC, CMP ####[address] Variant lymphocytes/100 WBC Manual cnt (Bld)Ordered By: Nabil Fox on 02-18-2024 Variant lymphocytes/100 WBC (Bld) 1 % 0-12 [facility] Anisocytosis [Presence] in B lood by Light microscopyOrdered By: Nabil Fox on 01-28-2024 Anisocytosis Ql (Bld) Slight Normal [facility] Comment on above: Performed By: #### C REAT, SCAN CBC ####[address] Automated basophil %Ordered By: Nabil Fox on 01-28-2024 Basophils/100 WBC (Bld) 0.7 % Normal . [facility] Comment on above: Performed By: #### C REAT, SCAN CBC ####[address] Automated basophil countOrde red By: Nabil Fox on 01-28-2024 Basophils (Bld) [#/Vol] 0.0 10*3/uL Normal 0.0-0.2 [facility] Comment on above: Performed By: #### C REAT, SCAN CBC ####[address] Automated blood monocyte cou ntOrdered By: Nabil Fox on 01-28-2024 Monocytes (Bld) [#/Vol] 0.1 10*3/uL Normal 0.0-0.8 [facility] Comment on above: Performed By: #### C REAT, SCAN CBC ####[address] Automated eosinophil %Ordere d By: Nabil Fox on 01-28-2024 Eosinophils/100 WBC (Bld) 1.2 % Normal . [facility] Comment on above: Performed By: #### C REAT, SCAN CBC ####[address] Automated eosinophil countOr dered By: Nabil Fox on 01-28-2024 Eosinophils (Bld) [#/Vol] 0.0 10*3/uL Normal 0.0-0.45 [facility] Comment on above: Performed By: #### C REAT, SCAN CBC ####[address] Automated monocyte %Ordered By: Nabil Fox on 01-28-2024 Monocytes/100 WBC (Bld) 5.9 % Normal . [facility] Comment on above: Performed By: #### C WEI, SCAN CBC ####[place] [id number] [address] Automated neutrophil %Ordere d By: Nabil Fox on 01-28-2024 Neutrophils/100 WBC (Bld) 72.7 % Normal . [facility] Comment on above: Performed By: #### C WEI, SCAN CBC ####[place] [address] [address] Blood toxic granulation dete ction by light microscopyOrdered By: Nabil Fox on 01-28-2024 Toxic granules LM Ql (Bld) Moderate [facility] Creatinineon 01-28-2024 Creatinine Clr Calc Pharmacy 87.45 Normal The Replaced By [facility] Comment on above: Result Comment: PERF ORMED BY: [facility] [address] [place] [place] [address] PATHOLOGIST CONCRETE CURER TRISTON MELGAR M.D. Performed By: #### C WEI, SCAN CBC ####[address] GFR/1.73 sq M.predicted MDRD (S/P/Bld) [Vol rate/Area] mL/min/{1.73_m2} Normal The Replaced By [facility] Comment on above: Performed By: #### C WEI, SCAN CBC ####[address] Creatinine [Mass/volume] in Serum or PlasmaOrdered By: Nabil Fox on 01-28-2024 Creatinine [Mass/Vol] 0.73 mg/dL Normal 0.70-1.30 [facility] Comment on above: Performed By: #### C SAIDAAT, SCAN CBC ####[place] [address] [address] Dohle bodies detectionOrdere d By: Nabil Fox on 01-28-2024 Dohle body LM Ql (Bld) Slight [facility] Erythrocyte distribution wid th [Ratio] by Automated countOrdered By: Nabil Fox on 01-28-2024 Erythrocyte distribution width (RBC) [Ratio] 14.0 % Normal 12.0-14.8 [facility] Comment on above: Performed By: #### C REAT, SCAN CBC ####[facility] [id number] Erythrocytes [#/volume] in B lood by Automated countOrdered By: Nabil Fox on 01-28-2024 RBC (Bld) [#/Vol] 3.77 10*6/uL Low 3.90-5.60 [facility] Comment on above: Performed By: #### C WEI, SCAN CBC ####[place] [address] [address] Helmet cell detectionOrdered By: Nabil Fox on 01-28-2024 Helmet cells LM Ql (Bld) Slight [facility] Hematocrit [Volume Fraction] of Blood by Automated countOrdered By: Nabil Fox on 01-28-2024 Hematocrit (Bld) [Volume fraction] 35.4 % Low 38.8-50.0 [facility] Comment on above: Performed By: #### C WEI, SCAN CBC ####[address] Hemoglobin [Mass/volume] in BloodOrdered By: Nabil Fox on 01-28-2024 Hemoglobin (Bld) [Mass/Vol] 12.1 g/dL Low 13.0-17.0 [facility] Comment on above: Performed By: #### C WEI, SCAN CBC ####[address] Leukocytes [#/volume] correc tejal for nucleated erythrocytes in Blood by Automated counOrdered By: Nabil Fox on 01-28-2024 WBC corrected for nucl RBC Auto (Bld) [#/Vol] 1.2 10*3/uL Low 4.1-10.5 [facility] Leukocytes [#/volume] in Blo od by Automated countOrdered By: Nabil Fox on 01-28-2024 WBC (Bld) [#/Vol] 1.2 10*3/uL Low 4.1-10.5 [facility] Comment on above: Performed By: #### C REAT, SCAN CBC ####[place] [address] [address] Lymphocytes [#/volume] in Bl ood by Automated countOrdered By: Nabil Fox on 01-28-2024 Lymphocytes (Bld) [#/Vol] 0.2 10*3/uL Low 1.00-4.8 [facility] Comment on above: Performed By: #### C REAT, SCAN CBC ####[address] Lymphocytes/100 leukocytes i n Blood by Automated countOrdered By: Nabil Fox on 01-28-2024 Lymphocytes/100 WBC (Bld) 19.5 % Normal . [facility] Comment on above: Performed By: #### C REAT, SCAN CBC ####[address] MCH [Entitic mass] by Automa tejal countOrdered By: Nabil Fox on 01-28-2024 MCH (RBC) [Entitic mass] 32.1 pg Normal 27.5-35.2 [facility] Comment on above: Performed By: #### C REAT, SCAN CBC ####[address] MCHC Auto (RBC) [Mass/Vol]Or dered By: Nabil Fox on 01-28-2024 MCHC (RBC) [Mass/Vol] 34.1 g/dL 32.5-35.6 [facility] MCV [Entitic volume] by Auto mated countOrdered By: Nabil Fox on 01-28-2024 MCV (RBC) [Entitic vol] 94.0 fL Normal 83.5-101 [facility] Comment on above: Performed By: #### C REAT, SCAN CBC ####[address] Neutrophils [#/volume] in Bl ood by Automated countOrdered By: Nabil Fox on 01-28-2024 Neutrophils (Bld) [#/Vol] 0.8 10*3/uL Low 1.8-7.7 [facility] Comment on above: Performed By: #### C REAT, SCAN CBC ####[facility] [id number] [address] No Panel InformationOrdered By: Nabil Fox on 01-28-2024 Estimated GFR (CKD-EPI) > 60.0 mL/Min [facility] Creatinine Clearance (Chem 87.45 [facility] Nucleated erythrocytes [Pres ence] in Blood by Automated countOrdered By: Nabil Fox on 01-28-2024 Nucleated RBC Auto Ql (Bld) 0.1 /100{WBC} 0-0.5 [facility] Platelet adequacy [Presence] in Blood by Light microscopyOrdered By: Nabil Fox on 01-28-2024 Platelets LM Ql (Bld) Decreased Normal [facility] Platelet mean volume [Entiti c volume] in Blood by Automated countOrdered By: Nabil Fox on 01-28-2024 Platelet mean volume (Bld) [Entitic vol] 7.9 fL Normal 6.6-10.1 [facility] Comment on above: Performed By: #### C REAT, SCAN CBC ####[facility] [id number] [place] [id number] [facility] Platelet morphology finding [Identifier] in BloodOrdered By: Nabil Fox on 01-28-2024 Platelet morphology finding Nom (Bld) Normal Normal [facility] Platelets [#/volume] in Bloo d by Automated countOrdered By: Nabil Fox on 01-28-2024 Platelets (Bld) [#/Vol] 77 10*3/uL Low 150-450 [facility] Comment on above: Performed By: #### C REAT, SCAN CBC ####[facility] [id number] [place] [id number] [facility] Poikilocytosis [Presence] in Blood by Light microscopyOrdered By: Nabil Fox on 01-28-2024 Poikilocytosis LM Ql (Bld) Slight [facility] RBC morphologyOrdered By: Troy annamaria Ruddy on 01-28-2024 RBC morphology finding Nom (Bld) N/A [facility] Scan and CBCon 01-28-2024 Dohle Bodies Slight Normal [facility] Comment on above: Performed By: #### C REAT, SCAN CBC ####[place] [address] [place] [id number] [facility] Helmet Cells Slight Normal [facility] Comment on above: Performed By: #### C REAT, SCAN CBC ####[place] [address] Mean Corpuscular HGB Conc 34.1 g/dL Normal 32.5-35.6 The Replaced By [facility] Comment on above: Performed By: #### C REAT, SCAN CBC ####[place] [address] NRBC% 0.1 /100{WBC} Normal 0-0.5 [facility] Comment on above: Performed By: #### C REAT, SCAN CBC ####[place] [id number] [facility] Platelet Estimate Decreased Normal Normal [facility] Comment on above: Performed By: #### C REAT, SCAN CBC ####[place] [id number] [facility] Platelet Morphology Normal Normal Normal [facility] Comment on above: Result Comment: PERF ORMED BY: [facility] [address] [place] [address] PATHOLOGIST CONCRETE CURER TRISTON MELGAR M.D. Performed By: #### C REAT, SCAN CBC ####[place] [address] [place] [id number] [facility] Poikilocytosis Slight Normal [facility] Comment on above: Performed By: #### C REAT, SCAN CBC ####[place] [id number] [facility] Toxic Granulation Moderate Normal [facility] Comment on above: Performed By: #### C REAT, SCAN CBC ####[facility] [id number] [address] XR chest 2V*on 01-23-2024 XR chest 2V* [facility] [address] [place] [address] [place] [id number] XRay Report Signed Patient: Valente Lucio MR#: [id number] 36 : 1950 Acct:[id number] Age/Sex: 73 / M ADM Date: 01/23/24 Loc: Room: Type: [facility] Attending Dr: Nabil Fox II, DO Copies to: MARY LOU Mtz II, DO Ordering Provider: Nabil Fox II, DO Date of Service: 01/23/24 XR/XR chest 2V*: cough, adventitious lung sounds-right lung Chest 2 views CLINICAL HISTORY: Cough. COMPARISON: None FINDINGS: Heart normal size. Lungs are clear. No free air. XR/XR chest 2V* IMPRESSION: NO ACUTE CARDIOPULMONARY ABNORMALITY. Impression dictated by: Yandel Thomas Jr., DRaphaelORaphael01/23/2024 2:52 PM Dictation Location: [place] [address] Transcribed By: [facility] 01/23/24 1452 Dictated By: Yandel Thomas Jr, DO 01/23/24 1451 Signed By: 01/23/24 1452 Normal The Replaced By [facility] Alanine aminotransferase [En zymatic activity/volume] in Serum or PlasmaOrdered By: Nabil Fox on 01-21-2024 ALT [Catalytic activity/Vol] 10 U/L Normal [facility] Comment on above: Order Comment: EDU RICHARDSONW Performed By: #### C MP, CBC #### [facility] [address] [place] [address] Albumin [Mass/volume] in Ser um or Plasma by Bromocresol green (BCG) dye binding methoOrdered By: Nabil Fox on 01-21-2024 Albumin BCG dye [Mass/Vol] 3.7 g/dL 3.5-5.7 [facility] Alkaline phosphatase [Enzyma tic activity/volume] in Serum or PlasmaOrdered By: Nabil Fox on 01-21-2024 ALP [Catalytic activity/Vol] 84 U/L Normal 34-104 [facility] Comment on above: Order Comment: EDU CastanedaKW Performed By: #### C MP, CBC #### [address] Aspartate aminotransferase [ Enzymatic activity/volume] in Serum or PlasmaOrdered By: Nabil Fox on 01-21-2024 AST [Catalytic activity/Vol] 15 U/L Normal 13-39 [facility] Comment on above: Order Comment: EDU CastanedaKW Performed By: #### C MP, CBC #### [address] Automated basophil %Ordered By: Nabil Fox on 01-21-2024 Basophils/100 WBC (Bld) 0.6 % Normal . [facility] Comment on above: Performed By: #### C MP, CBC #### [address] Automated basophil countOrde red By: Nabil Fox on 01-21-2024 Basophils (Bld) [#/Vol] 0.0 10*3/uL Normal 0.0-0.2 [facility] Comment on above: Result Comment: PERF ORMED BY: [place] [address] PATHOLOGIST CONCRETE CURER TRISTON MELGAR M.D. Performed By: #### C MP, CBC #### [address] Automated blood monocyte cou ntOrdered By: Nabil Fox on 01-21-2024 Monocytes (Bld) [#/Vol] 0.3 10*3/uL Normal 0.0-0.8 [facility] Comment on above: Performed By: #### C MP, CBC #### [address] Automated eosinophil %Ordere d By: Nabil Fox on 01-21-2024 Eosinophils/100 WBC (Bld) 1.9 % Normal . [facility] Comment on above: Performed By: #### C MP, CBC #### [address] Automated eosinophil countOr dered By: Nabil Fox on 01-21-2024 Eosinophils (Bld) [#/Vol] 0.0 10*3/uL Normal 0.0-0.45 [facility] Comment on above: Performed By: #### C MP, CBC #### [address] Automated monocyte %Ordered By: Nabil Fox on 01-21-2024 Monocytes/100 WBC (Bld) 11.2 % Normal . [facility] Comment on above: Performed By: #### C MP, CBC #### [address] Automated neutrophil %Ordere d By: Nabil Fox on 01-21-2024 Neutrophils/100 WBC (Bld) 65.1 % Normal . [facility] Comment on above: Performed By: #### C MP, CBC #### [address] Bilirubin.total [Mass/volume ] in Serum or PlasmaOrdered By: Nabil Fox on 01-21-2024 Bilirubin [Mass/Vol] 0.5 mg/dL Normal 0.3-1.0 [facility] Comment on above: Order Comment: FASTI NG. JKW Performed By: #### C MP, CBC #### [place] [address] [place] Calcium [Mass/volume] in Ser um or PlasmaOrdered By: Nabil Fox on 01-21-2024 Calcium [Mass/Vol] 8.6 mg/dL Normal 8.6-10.3 [facility] Comment on above: Order Comment: FASTI NG. JKW Performed By: #### C MP, CBC #### [address] [address] [place] Carbon dioxide, total [Moles /volume] in Serum or PlasmaOrdered By: Nabil Fox on 01-21-2024 CO2 [Moles/Vol] 28.7 mmol/L Normal 21.0-31.0 [facility] Comment on above: Order Comment: FASTI NG. JKW Performed By: #### C MP, CBC #### [address] Chloride [Moles/volume] in S neeru or PlasmaOrdered By: Nabil Fox on 01-21-2024 Chloride [Moles/Vol] 101 mmol/L Normal 98-107 [facility] Comment on above: Order Comment: FASTI NG. JKW Performed By: #### C MP, CBC #### [address] Complete Blood Count Auto Di ffon 01-21-2024 Mean Corpuscular HGB Conc 33.7 g/dL Normal 32.5-35.6 The Replaced By [facility] Comment on above: Performed By: #### C MP, CBC #### [address] NRBC% 0.1 /100{WBC} Normal 0-0.5 [facility] Comment on above: Performed By: #### C MP, CBC #### [address] Comprehensive Metabolic Pane nehemiah 01-21-2024 Albumin [Mass/Vol] 3.7 g/dL Normal 3.5-5.7 [facility] Comment on above: Order Comment: FASTI NG. JKW Performed By: #### C MP, CBC #### [place] [address] [place] Creatinine Clr Calc Pharmacy 94.74 Normal The Replaced By [facility] Comment on above: Order Comment: FASTI NG. JKW Result Comment: PERF ORMED BY: [place] [address] PATHOLOGIST CONCRETE CURER JIANLAN SUN M.D. Performed By: #### C MP, CBC #### [facility] [address] [place] [address] [place] GFR/1.73 sq M.predicted MDRD (S/P/Bld) [Vol rate/Area] mL/min/{1.73_m2} Normal The Replaced By [facility] Comment on above: Order Comment: FASTI ELADIO. JKW Performed By: #### C MP, CBC #### [facility] [address] [place] [address] [place] Creatinine [Mass/volume] in Serum or PlasmaOrdered By: Nabil Fox on 01-21-2024 Creatinine [Mass/Vol] 0.66 mg/dL Low 0.70-1.30 [facility] Comment on above: Order Comment: FASTI NG. JKW Performed By: #### C MP, CBC #### [address] Erythrocyte distribution wid th [Ratio] by Automated countOrdered By: Nabil Fox on 01-21-2024 Erythrocyte distribution width (RBC) [Ratio] 14.3 % Normal 12.0-14.8 [facility] Comment on above: Performed By: #### C MP, CBC #### [place] [address] [place] Erythrocytes [#/volume] in B lood by Automated countOrdered By: Nabil Fox on 01-21-2024 RBC (Bld) [#/Vol] 4.08 10*6/uL Normal 3.90-5.60 [facility] Comment on above: Performed By: #### C MP, CBC #### [place] [address] [place] Glucose [Mass/volume] in Ser um or PlasmaOrdered By: Nabil Fox on 01-21-2024 Glucose [Mass/Vol] 103 mg/dL High 70-100 [facility] Comment on above: ADA recommended refe rence rangeRandom Glucose Reference Range is dependent on time and content of last meal. Glucose of more than 200 mg/dL in a nonstressed, ambulatory subject supports the diagnosis of Diabetes Mellitus. Order Comment: EDU HENDRICKS. JKW Result Comment: Gerald Glucose Reference Range is dependent on time and content of last meal. Glucose of more than 200 mg/dL in a nonstressed, ambulatory subject supports the diagnosis of Diabetes Mellitus. ADA recommended reference range Performed By: #### C MP, CBC #### [address] Hematocrit [Volume Fraction] of Blood by Automated countOrdered By: Nabil Fox on 01-21-2024 Hematocrit (Bld) [Volume fraction] 38.1 % Low 38.8-50.0 [facility] Comment on above: Performed By: #### C MP, CBC #### [address] Hemoglobin [Mass/volume] in BloodOrdered By: Nabil Fox on 01-21-2024 Hemoglobin (Bld) [Mass/Vol] 12.9 g/dL Low 13.0-17.0 [facility] Comment on above: Performed By: #### C MP, CBC #### [address] Leukocytes [#/volume] correc tejal for nucleated erythrocytes in Blood by Automated counOrdered By: Nabil Fox on 01-21-2024 WBC corrected for nucl RBC Auto (Bld) [#/Vol] 2.5 10*3/uL Low 4.1-10.5 [facility] Leukocytes [#/volume] in Blo od by Automated countOrdered By: Nabil Fox on 01-21-2024 WBC (Bld) [#/Vol] 2.5 10*3/uL Low 4.1-10.5 [facility] Comment on above: Performed By: #### C MP, CBC #### [place] [address] [place] Lymphocytes [#/volume] in Bl ood by Automated countOrdered By: Nabil Fox on 01-21-2024 Lymphocytes (Bld) [#/Vol] 0.5 10*3/uL Low 1.00-4.8 [facility] Comment on above: Performed By: #### C MP, CBC #### [address] Lymphocytes/100 leukocytes i n Blood by Automated countOrdered By: Nabil Fox on 01-21-2024 Lymphocytes/100 WBC (Bld) 21.2 % Normal . [facility] Comment on above: Performed By: #### C MP, CBC #### [address] MCH [Entitic mass] by Automa tjeal countOrdered By: Nabil Fox on 01-21-2024 MCH (RBC) [Entitic mass] 31.5 pg Normal 27.5-35.2 [facility] Comment on above: Performed By: #### C MP, CBC #### [address] MCHC Auto (RBC) [Mass/Vol]Or dered By: Nabil Fox on 01-21-2024 MCHC (RBC) [Mass/Vol] 33.7 g/dL 32.5-35.6 [facility] MCV [Entitic volume] by Auto mated countOrdered By: Nabil Fox on 01-21-2024 MCV (RBC) [Entitic vol] 93.4 fL Normal 83.5-101 [facility] Comment on above: Performed By: #### C MP, CBC #### [address] Neutrophils [#/volume] in Bl ood by Automated countOrdered By: Nabil Fox on 01-21-2024 Neutrophils (Bld) [#/Vol] 1.6 10*3/uL Low 1.8-7.7 [facility] Comment on above: Performed By: #### C MP, CBC #### [address] No Panel InformationOrdered By: Nabil Fox on 01-21-2024 Estimated GFR (CKD-EPI) > 60.0 mL/Min [facility] Creatinine Clearance (Chem 94.74 [facility] Nucleated erythrocytes [Pres ence] in Blood by Automated countOrdered By: Nabil Fox on 01-21-2024 Nucleated RBC Auto Ql (Bld) 0.1 /100{WBC} 0-0.5 [facility] Platelet mean volume [Entiti c volume] in Blood by Automated countOrdered By: Nabil Fox on 01-21-2024 Platelet mean volume (Bld) [Entitic vol] 8.1 fL Normal 6.6-10.1 [facility] Comment on above: Performed By: #### C MP, CBC #### [address] Platelets [#/volume] in Bloo d by Automated countOrdered By: Nabil Fox on 01-21-2024 Platelets (Bld) [#/Vol] 139 10*3/uL Low 150-450 [facility] Comment on above: Performed By: #### C MP, CBC #### [address] Potassium [Moles/volume] in Serum or PlasmaOrdered By: Nabil Fox on 01-21-2024 Potassium [Moles/Vol] 4.8 mmol/L Normal 3.5-5.1 [facility] Comment on above: Order Comment: FASTI NG. JKW Performed By: #### C MP, CBC #### [address] Protein [Mass/volume] in Ser um or PlasmaOrdered By: Nabil Fox on 01-21-2024 Protein [Mass/Vol] 6.0 g/dL Low 6.4-8.9 [facility] Comment on above: Order Comment: FASTI NG. JKW Performed By: #### C MP, CBC #### [address] Serum globulin measurement b y calculation (mass/volume)Ordered By: Nabil Fox on 01-21-2024 Globulin (S) [Mass/Vol] 2.3 g/dL Normal [facility] Comment on above: Order Comment: FASTI NG. JKW Performed By: #### C MP, CBC #### [address] Serum or plasma albumin/glob ulin mass ratioOrdered By: Nabil Fox on 01-21-2024 Albumin/Globulin [Mass ratio] 1.6 {ratio} Normal [facility] Comment on above: Order Comment: FASTI NG. JKW Performed By: #### C MP, CBC #### [address] Serum or plasma anion gap de terminationOrdered By: Nabil Fox on 01-21-2024 Anion gap [Moles/Vol] 11.1 mmol/L Normal 6.0-15.0 [facility] Comment on above: Order Comment: FASTI NG. JKW Performed By: #### C MP, CBC #### [address] Sodium [Moles/volume] in Ser um or PlasmaOrdered By: Nabil Fox on 01-21-2024 Sodium [Moles/Vol] 136 mmol/L Normal 136-145 [facility] Comment on above: Order Comment: FASTI NG. JKW Performed By: #### C MP, CBC #### [address] Urea nitrogen [Mass/volume] in Serum or PlasmaOrdered By: Nabil Fox on 01-21-2024 Urea nitrogen [Mass/Vol] 22 mg/dL Normal 7-25 [facility] Comment on above: Order Comment: FASTI NG. JKW Performed By: #### C MP, CBC #### [address] Automated basophil %Ordered By: Nabil Fox on 01-14-2024 Basophils/100 WBC (Bld) 0.6 % Normal [facility] Comment on above: Performed By: #### C REAT, CBC #### [address] Automated basophil countOrde red By: Nabil Fox on 01-14-2024 Basophils (Bld) [#/Vol] 0.0 10*3/uL Normal 0.0-0.2 [facility] Comment on above: Result Comment: PERF ORMED BY: [place] [address] PATHOLOGIST CONCRETE CURER TRISTON MELGAR M.D. Performed By: #### C REAT, CBC #### [address] Automated blood monocyte cou ntOrdered By: Nabil Fox on 01-14-2024 Monocytes (Bld) [#/Vol] 0.1 10*3/uL Normal 0.0-0.8 [facility] Comment on above: Performed By: #### C REAT, CBC #### [address] Automated eosinophil %Ordere d By: Nabil Fox on 01-14-2024 Eosinophils/100 WBC (Bld) 4.0 % Normal . [facility] Comment on above: Performed By: #### C REAT, CBC #### [address] Automated eosinophil countOr dered By: Nabil Fox on 01-14-2024 Eosinophils (Bld) [#/Vol] 0.1 10*3/uL Normal 0.0-0.45 [facility] Comment on above: Performed By: #### C REAT, CBC #### [address] Automated monocyte %Ordered By: Nabil Fox on 01-14-2024 Monocytes/100 WBC (Bld) 3.8 % Normal . [facility] Comment on above: Performed By: #### C REAT, CBC #### [address] Automated neutrophil %Ordere d By: Nabil Fox on 01-14-2024 Neutrophils/100 WBC (Bld) 68.5 % Normal . [facility] Comment on above: Performed By: #### C REAT, CBC #### [address] [place] [address] [place] Complete Blood Count Auto Di ffon 01-14-2024 Mean Corpuscular HGB Conc 33.9 g/dL Normal 32.5-35.6 The Replaced By [facility] Comment on above: Performed By: #### C REAT, CBC #### [address] NRBC% 0.2 /100{WBC} Normal 0-0.5 [facility] Comment on above: Performed By: #### C REAT, CBC #### [address] Creatinineon 01-14-2024 Creatinine Clr Calc Pharmacy 94.85 Normal The Replaced By [facility] Comment on above: Result Comment: PERF ORMED BY: [place] [address] PATHOLOGIST CONCRETE CURER TRISTON MELGAR M.D. Performed By: #### C WEI, CBC #### [address] GFR/1.73 sq M.predicted MDRD (S/P/Bld) [Vol rate/Area] mL/min/{1.73_m2} Normal The Replaced By [facility] Comment on above: Performed By: #### C WEI, CBC #### [address] Creatinine [Mass/volume] in Serum or PlasmaOrdered By: Nabil Fox on 01-14-2024 Creatinine [Mass/Vol] 0.65 mg/dL Low 0.70-1.30 [facility] Comment on above: Performed By: #### C REAT, CBC #### [address] Erythrocyte distribution wid th [Ratio] by Automated countOrdered By: Nabil Fox on 01-14-2024 Erythrocyte distribution width (RBC) [Ratio] 14.0 % Normal 12.0-14.8 [facility] Comment on above: Performed By: #### C WEI, CBC #### [address] Erythrocytes [#/volume] in B lood by Automated countOrdered By: Nabil Fox on 01-14-2024 RBC (Bld) [#/Vol] 4.18 10*6/uL Normal 3.90-5.60 [facility] Comment on above: Performed By: #### C REAT, CBC #### [facility] [address] Hematocrit [Volume Fraction] of Blood by Automated countOrdered By: Nabil Fox on 01-14-2024 Hematocrit (Bld) [Volume fraction] 39.3 % Normal 38.8-50.0 [facility] Comment on above: Performed By: #### C REAT, CBC #### [address] Hemoglobin [Mass/volume] in BloodOrdered By: Nabil Fox on 01-14-2024 Hemoglobin (Bld) [Mass/Vol] 13.3 g/dL Normal 13.0-17.0 [facility] Comment on above: Performed By: #### C REAT, CBC #### [address] Leukocytes [#/volume] correc tejal for nucleated erythrocytes in Blood by Automated counOrdered By: Nabil Fox on 01-14-2024 WBC corrected for nucl RBC Auto (Bld) [#/Vol] 3.4 10*3/uL Low 4.1-10.5 [facility] Leukocytes [#/volume] in Blo od by Automated countOrdered By: Nabil Fox on 01-14-2024 WBC (Bld) [#/Vol] 3.4 10*3/uL Low 4.1-10.5 [facility] Comment on above: Performed By: #### C REAT, CBC #### [place] [address] [place] Lymphocytes [#/volume] in Bl ood by Automated countOrdered By: Nabil Fox on 01-14-2024 Lymphocytes (Bld) [#/Vol] 0.8 10*3/uL Low 1.00-4.8 [facility] Comment on above: Performed By: #### C RECLAY, CBC #### [address] Lymphocytes/100 leukocytes i n Blood by Automated countOrdered By: Nabil Fox on 01-14-2024 Lymphocytes/100 WBC (Bld) 23.1 % Normal . [facility] Comment on above: Performed By: #### C REAT, CBC #### [address] MCH [Entitic mass] by Automa tejal countOrdered By: Nabil Fox on 01-14-2024 MCH (RBC) [Entitic mass] 31.8 pg Normal 27.5-35.2 [facility] Comment on above: Performed By: #### C WEI, CBC #### [address] MCHC Auto (RBC) [Mass/Vol]Or dered By: Nabil Fox on 01-14-2024 MCHC (RBC) [Mass/Vol] 33.9 g/dL 32.5-35.6 [facility] MCV [Entitic volume] by Auto mated countOrdered By: Nabil Fox on 01-14-2024 MCV (RBC) [Entitic vol] 93.9 fL Normal 83.5-101 [facility] Comment on above: Performed By: #### C WEI, CBC #### [address] Neutrophils [#/volume] in Bl ood by Automated countOrdered By: Nabil Fox on 01-14-2024 Neutrophils (Bld) [#/Vol] 2.3 10*3/uL Normal 1.8-7.7 [facility] Comment on above: Performed By: #### C WEI, CBC #### [address] No Panel InformationOrdered By: Nabil Fox on 01-14-2024 Estimated GFR (CKD-EPI) > 60.0 mL/Min [facility] Creatinine Clearance (Chem 94.85 [facility] Nucleated erythrocytes [Pres ence] in Blood by Automated countOrdered By: Nabil Fox on 01-14-2024 Nucleated RBC Auto Ql (Bld) 0.2 /100{WBC} 0-0.5 [facility] Platelet mean volume [Entiti c volume] in Blood by Automated countOrdered By: Nabil Fox on 01-14-2024 Platelet mean volume (Bld) [Entitic vol] 8.6 fL Normal 6.6-10.1 [facility] Comment on above: Performed By: #### C REAT, CBC #### [facility] [address] Platelets [#/volume] in Bloo d by Automated countOrdered By: Nabil Fox on 01-14-2024 Platelets (Bld) [#/Vol] 174 10*3/uL Normal 150-450 [facility] Comment on above: Performed By: #### C SAIDAAT, CBC #### [facility] [address] Automated basophil %Ordered By: Nabil Fox on 01-07-2024 Basophils/100 WBC (Bld) 0.8 % Normal . [facility] Comment on above: Performed By: #### C WEI, CBC ####[facility] [id number] Automated basophil countOrde red By: Nabil Fox on 01-07-2024 Basophils (Bld) [#/Vol] 0.0 10*3/uL Normal 0.0-0.2 [facility] Comment on above: Result Comment: PERF ORMED BY: [facility] [address] [place] [address] PATHOLOGIST CONCRETE CURER TRISTON MELGAR M.D. Performed By: #### C SAIDAAT, CBC ####[facility] [id number] [address] Automated blood monocyte cou ntOrdered By: Nabil Fox on 01-07-2024 Monocytes (Bld) [#/Vol] 0.2 10*3/uL Normal 0.0-0.8 [facility] Comment on above: Performed By: #### C REAT, CBC ####[address] Automated eosinophil %Ordere d By: Nabil Fox on 01-07-2024 Eosinophils/100 WBC (Bld) 5.1 % Normal . [facility] Comment on above: Performed By: #### C REAT, CBC ####[address] Automated eosinophil countOr dered By: Nabil Fox on 01-07-2024 Eosinophils (Bld) [#/Vol] 0.3 10*3/uL Normal 0.0-0.45 [facility] Comment on above: Performed By: #### C REAT, CBC ####[address] Automated monocyte %Ordered By: Nabil Fox on 01-07-2024 Monocytes/100 WBC (Bld) 2.7 % Normal . [facility] Comment on above: Performed By: #### C REAT, CBC ####[address] Automated neutrophil %Ordere d By: Nabil Fox on 01-07-2024 Neutrophils/100 WBC (Bld) 68.2 % Normal . [facility] Comment on above: Performed By: #### C REAT, CBC ####[address] Complete Blood Count Auto Di ffon 01-07-2024 Mean Corpuscular HGB Conc 34.0 g/dL Normal 32.5-35.6 The Replaced By [facility] Comment on above: Performed By: #### C REAT, CBC ####[address] NRBC% 0.1 /100{WBC} Normal 0-0.5 [facility] Comment on above: Performed By: #### C REAT, CBC ####[address] [place] [address] [facility] Creatinineon 01-07-2024 Creatinine Clr Calc Pharmacy 95.37 Normal The Replaced By [facility] Comment on above: Result Comment: PERF ORMED BY: [facility] [address] [place] [address] PATHOLOGIST CONCRETE CURER TRISTON MELGAR M.D. Performed By: #### C REAT, CBC ####[address] GFR/1.73 sq M.predicted MDRD (S/P/Bld) [Vol rate/Area] mL/min/{1.73_m2} Normal The Replaced By [facility] Comment on above: Performed By: #### C REAT, CBC ####[address] Creatinine [Mass/volume] in Serum or PlasmaOrdered By: Nabil Fox on 01-07-2024 Creatinine [Mass/Vol] 0.64 mg/dL Low 0.70-1.30 [facility] Comment on above: Performed By: #### C SAIDAAT, CBC ####[address] Erythrocyte distribution wid th [Ratio] by Automated countOrdered By: Nabil Fox on 01-07-2024 Erythrocyte distribution width (RBC) [Ratio] 14.5 % Normal 12.0-14.8 [facility] Comment on above: Performed By: #### C WEI, CBC ####[address] Erythrocytes [#/volume] in B lood by Automated countOrdered By: Nabil Fox on 01-07-2024 RBC (Bld) [#/Vol] 4.32 10*6/uL Normal 3.90-5.60 [facility] Comment on above: Performed By: #### C REAT, CBC ####[address] Hematocrit [Volume Fraction] of Blood by Automated countOrdered By: Nabil Fox on 01-07-2024 Hematocrit (Bld) [Volume fraction] 40.7 % Normal 38.8-50.0 [facility] Comment on above: Performed By: #### C RECLAY, CBC ####[address] Hemoglobin [Mass/volume] in BloodOrdered By: Nabil Fox on 01-07-2024 Hemoglobin (Bld) [Mass/Vol] 13.9 g/dL Normal 13.0-17.0 [facility] Comment on above: Performed By: #### C REAT, CBC ####[address] Leukocytes [#/volume] correc tejal for nucleated erythrocytes in Blood by Automated counOrdered By: Nabil Fox on 01-07-2024 WBC corrected for nucl RBC Auto (Bld) [#/Vol] 5.9 10*3/uL 4.1-10.5 [facility] Leukocytes [#/volume] in Blo od by Automated countOrdered By: Nabil Fox on 01-07-2024 WBC (Bld) [#/Vol] 5.9 10*3/uL Normal 4.1-10.5 [facility] Comment on above: Performed By: #### C WEI, CBC ####[address] Lymphocytes [#/volume] in Bl ood by Automated countOrdered By: Nabil Fox on 01-07-2024 Lymphocytes (Bld) [#/Vol] 1.4 10*3/uL Normal 1.00-4.8 [facility] Comment on above: Performed By: #### C REAT, CBC ####[address] Lymphocytes/100 leukocytes i n Blood by Automated countOrdered By: Nabil Fox on 01-07-2024 Lymphocytes/100 WBC (Bld) 23.2 % Normal . [facility] Comment on above: Performed By: #### C REAT, CBC ####[address] MCH [Entitic mass] by Automa tejal countOrdered By: Nabil Fox on 01-07-2024 MCH (RBC) [Entitic mass] 32.1 pg Normal 27.5-35.2 [facility] Comment on above: Performed By: #### C REAT, CBC ####[facility] [id number] [address] MCHC Auto (RBC) [Mass/Vol]Or dered By: Nabil Fox on 01-07-2024 MCHC (RBC) [Mass/Vol] 34.0 g/dL 32.5-35.6 [facility] MCV [Entitic volume] by Auto mated countOrdered By: Nabil Fox on 01-07-2024 MCV (RBC) [Entitic vol] 94.4 fL Normal 83.5-101 [facility] Comment on above: Performed By: #### C REAT, CBC ####[address] Neutrophils [#/volume] in Bl ood by Automated countOrdered By: Nabil Fox on 01-07-2024 Neutrophils (Bld) [#/Vol] 4.0 10*3/uL Normal 1.8-7.7 [facility] Comment on above: Performed By: #### C REAT, CBC ####[address] No Panel InformationOrdered By: Nabil Fox on 01-07-2024 Estimated GFR (CKD-EPI) > 60.0 mL/Min [facility] Creatinine Clearance (Chem 95.37 [facility] Nucleated erythrocytes [Pres ence] in Blood by Automated countOrdered By: Nabil Fox on 01-07-2024 Nucleated RBC Auto Ql (Bld) 0.1 /100{WBC} 0-0.5 [facility] Platelet mean volume [Entiti c volume] in Blood by Automated countOrdered By: Nabil Fox on 01-07-2024 Platelet mean volume (Bld) [Entitic vol] 8.7 fL Normal 6.6-10.1 [facility] Comment on above: Performed By: #### C REAT, CBC ####[facility] [id number] [address] Platelets [#/volume] in Bloo d by Automated countOrdered By: Nabil Fox on 01-07-2024 Platelets (Bld) [#/Vol] 206 10*3/uL Normal 150-450 [facility] Comment on above: Performed By: #### C REAT, CBC ####[facility] [id number] Basophils Auto (Bld) [#/Vol] on 12-31-2023 Basophils (Bld) [#/Vol] 0.0 10 3/uL 0.0-0.1 [facility] Basophils/100 WBC Auto (Bld) on 12-31-2023 Basophils/100 WBC (Bld) 0.5 % 0.2-2.0 [facility] Eosinophils/100 WBC Auto (Bl d)on 12-31-2023 Eosinophils/100 WBC (Bld) 2.7 % 0.9-7.0 [facility] Erythrocyte distribution wid th Auto (RBC) [Ratio]on 12-31-2023 Erythrocyte distribution width (RBC) [Ratio] 14.1 % 11.0-15.0 [facility] Estimated glomerular filtrat ion rate (GFR) non- Americanon 12-31-2023 GFR/1.73 sq M.predicted among non-blacks MDRD (S/P/Bld) [Vol rate/Area] mL/min/{1.73_m2} >=60 [facility] Globulin Calc (S) [Mass/Vol] on 12-31-2023 Globulin (S) [Mass/Vol] 3.8 g/dL [facility] Hematocrit Auto (Bld) [Volum e fraction]on 12-31-2023 Hematocrit (Bld) [Volume fraction] 43.8 % 42.0-54.0 [facility] Hemoglobin [Mass/volume] in Bloodon 12-31-2023 Hemoglobin (Bld) [Mass/Vol] 14.4 g/dL 14.0-18.0 [facility] - Chemistry and C hemistry - challengeon 12-31-2023 Albumin [Mass/Vol] 3.3 g/dL Low 3.4-5.0 [facility] ALP [Catalytic activity/Vol] 139 U/L High 46-116 [facility] ALT [Catalytic activity/Vol] 24 U/L 16-63 [facility] AST [Catalytic activity/Vol] 26 U/L 15-37 [facility] Bilirubin [Mass/Vol] 0.5 mg/dL 0.2-1.0 [facility] Calcium [Mass/Vol] 8.8 mg/dL 8.5-10.1 [facility] Chloride [Moles/Vol] 106 mmol/L 98-107 [facility] CO2 [Moles/Vol] 26.3 mmol/L 21.0-32.0 [facility] Creatinine [Mass/Vol] 0.75 mg/dL 0.70-1.30 [facility] GFR/1.73 sq M.predicted MDRD (S/P/Bld) [Vol rate/Area] mL/min/{1.73_m2} >=60 [facility] Glucose [Mass/Vol] 105 mg/dL 74-106 [facility] Potassium [Moles/Vol] 3.8 mmol/L 3.5-5.1 [facility] Protein [Mass/Vol] 7.1 g/dL 6.4-8.2 [facility] Sodium [Moles/Vol] 139 mmol/L 136-145 [facility] Urea nitrogen [Mass/Vol] 15.0 mg/dL 7.0-18.0 [facility] Urea nitrogen/Creatinine [Mass ratio] 20.0 mg/mg [facility] - Hematology and Cell countson 12-31-2023 Immature granulocytes/100 WBC (Bld) 0.3 % 0.0-0.5 [facility] Leukocytes [#/volume] correc tejal for nucleated erythrocytes in Blood by Automated counon 12-31-2023 WBC corrected for nucl RBC Auto (Bld) [#/Vol] 7.8 10 3/uL 4.0-11.0 [facility] Lymphocytes Auto (Bld) [#/Vo l]on 12-31-2023 Lymphocytes (Bld) [#/Vol] 1.9 10 3/uL 1.2-3.8 [facility] Lymphocytes/100 WBC Auto (Bl d)on 12-31-2023 Lymphocytes/100 WBC (Bld) 24.6 % 20.5-60.0 [facility] MCH Auto (RBC) [Entitic mass ]on 12-31-2023 MCH (RBC) [Entitic mass] 31.4 pg 25.9-34.0 [facility] MCHC Auto (RBC) [Mass/Vol]on 12-31-2023 MCHC (RBC) [Mass/Vol] 32.9 g/dL 29.9-35.2 [facility] MCV Auto (RBC) [Entitic vol] on 12-31-2023 MCV (RBC) [Entitic vol] 95.4 fL High 80.0-94.0 [facility] Monocytes Auto (Bld) [#/Vol] on 12-31-2023 Monocytes (Bld) [#/Vol] 0.6 10 3/uL 0.3-0.8 [facility] Monocytes/100 WBC Auto (Bld) on 12-31-2023 Monocytes/100 WBC (Bld) 7.6 % 1.7-12.0 [facility] Neutrophils Auto (Bld) [#/Vo l]on 12-31-2023 Neutrophils (Bld) [#/Vol] 5.0 10 3/uL 1.4-6.5 [facility] Neutrophils/100 WBC Auto (Bl d)on 12-31-2023 Neutrophils/100 WBC (Bld) 64.3 % 43.0-75.0 [facility] No Panel Informationon 12-30 Eosinophils # (Auto) 0.2 10 3/uL 0.0-0.7 [facility] Immature Granulocyte # (Auto) 0.02 10 3/uL 0.00-0.03 [facility] Platelet mean volume Auto (B ld) [Entitic vol]on 12-31-2023 Platelet mean volume (Bld) [Entitic vol] 9.7 fL 9.5-13.5 [facility] Platelets Auto (Bld) [#/Vol] on 12-31-2023 Platelets (Bld) [#/Vol] 263 10 3/uL 150-450 [facility] RBC Auto (Bld) [#/Vol]on RBC (Bld) [#/Vol] 4.59 10 6/uL Low 4.70-6.10 [facility] Serum or plasma albumin/glob ulin mass ratioon 12-31-2023 Albumin/Globulin [Mass ratio] 0.9 {ratio} [facility] Serum or plasma anion gap de terminationon 12-31-2023 Anion gap [Moles/Vol] 10.5 mmol/L [facility] Capillary blood glucose flako urement by glucometer (mass/volume)Ordered By: Jaswant Zaidi on 12-08-2023 Glucose [Mass/Vol] 80 mg/dL Normal [facility] Comment on above: Random Glucose Refer ence Range is dependent on time and content of last meal. Glucose of more than 200 mg/dL in a nonstressed, ambulatory subject supports the diagnosis of Diabetes Mellitus. Result Comment: Gerald Glucose Reference Range is dependent on time and content of last meal. Glucose of more than 200 mg/dL in a nonstressed, ambulatory subject supports the diagnosis of Diabetes Mellitus. PERFORMED BY: [place] [address] PATHOLOGIST CONCRETE CURER TRISTON MELGAR M.D. Performed By: #### G LUDAIN #### Point of Care testing , PET tumor subq tx strat sb-m ton 12-08-2023 PET tumor subq tx strat sb-mt [facility] [place] [address] Nuclear Medicine Report Signed Patient: Valente Lucio MR#: [id number] 34 : 1950 Acct:[id number] Age/Sex: 73 / M ADM Date: 12/08/23 Loc: Room: Type: [facility] Attending Dr: Jaswant Zaidi DO Copies to: DO Yandel Garcia Jr DO Ordering Provider: Jaswant Zaidi DO Date of Service: 12/08/23 PET/PET tumor subq tx strat sb-mt: INITIAL HEAD AND NECK /[id number] PET/CT FUSION IMAGING CLINICAL INFORMATION: Head and neck cancer COMPARISON : Outside soft tissue neck CT 12/03/2023. TECHNIQUE: Noncontrasted CT scan from the base of the skull to the upper thigh followed by PET imaging. Multiplanar PET/CT fusion images. Blood Glucose : 80 mg/dL The F-18 FDG 12.33mCi. FINDINGS: Neck: The previously identified masslike thickening involving the posterior pharynx is FDG avid, SUV max 9.0. Abnormal activity is seen in the region of the left parapharyngeal space corresponding to soft tissue within this region on the concurrent CT and outside CT, SUV max of 5.5. FDG avid bilateral level 2 lymph nodes, SUV max 4.9. Chest:No abnormal activity. Abdomen/pelvis: No abnormal activity. Soft tissue/bones: No abnormal activity. CT findings: No pneumothorax. No pericardial or pleural effusions. No free air or free fluid. PET/PET tumor subq tx strat sb-mt IMPRESSION: 1. The previously identified masslike thickening involving the posterior pharynx is FDG avid likely related to the patient's primary malignancy. 2. Abnormal activity is seen in the region of the left parapharyngeal space corresponding to abnormal soft tissue in this region on the concurrent CT as well as the outside CT suspicious for local metastatic disease possibly a lymph node. 3. FDG avid bilateral level 2 lymph nodes suggestive of local metastatic disease. No PET/CT evidence of distant metastatic disease is seen. Impression dictated by: Yandel Thomas Jr., D.ORaphael12/08/2023 3:30 PM Dictation Location: [place] [address] Transcribed By: [facility] 12/08/23 1530 Dictated By: Yandel Thomas Jr, DO 12/08/23 1514 Signed By: 12/08/23 1530 Normal [facility] Nehemiah 12-05-2023 L Specimen: [id number] Received: 12/05/23-141 Status: SOUT Re Num: [id number] Spec Type: Surgical Subm Dr: Jaswant Zaidi DO Tissues: A Soft Tissue/Surgical Margin-Other than Tumor,Mass,Lip or Yeny (HYPOPHARANGEAL B Soft Tissue/Surgical Margin-Other than Tumor,Mass,Lip or Yeny (RT EPIGLOTIC F C Soft Tissue/Surgical Margin-Other than Tumor,Mass,Lip or Yeny (RT LATERAL WAL D Soft Tissue/Surgical Margin-Other than Tumor,Mass,Lip or Yeny (HYPOPHARYNGEAL Procedures: HE/5, Gross/Micro L4/4, CINtec p16, FS HE/2, DIFF QWIK Age/ Patient Sex Location Account Attending Physician Valente Lucio 73/M [place] [id number] Jaswant Zaidi DO SPEC NUM: [id number] RECD: 12/05/23 STATUS: JHONY ROWLEY NUM: [id number] GEORGE: 12/05/23- DR: Jaswant Zaidi DO ENTERED: 12/05/[address]: Manuel [facility] SPEC TYPE: Surgical DEPT: S ORDERED: HE/5, Gross/Micro L4/4, CINtec p16, FS HE/2, DIFF QWIK ORDERED: HE/5, Gross/Micro L4/4, CINtec p16, FS HE/2, DIFF QWIK Supplemental Report Addendum 1 Entered: 12/10/23 Supplemental for findings of p16 immunostain without a change of initial diagnosis: -The tumor cells are negative for p16, therefore is not HPV infection related malignancy -Controls are appropriate Note: -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 in 1 literature report of note CPT: 98177 Addendum Signed (signature on file) Santosh Blood MD 12/10/23 1332 Specimen: [id number] Received: 12/05/23 Status: JHONY Rowley Num: [id number] Spec Type: Surgical Subm Dr: Jaswant Zaidi DO Tissues: A Soft Tissue/Surgical Margin-Other than Tumor,Mass,Lip or Yeny (HYPOPHARANGEAL B Soft Tissue/Surgical Margin-Other than Tumor,Mass,Lip or Yeny (RT EPIGLOTIC F C Soft Tissue/Surgical Margin-Other than Tumor,Mass,Lip or Yeny (RT LATERAL WAL D Soft Tissue/Surgical Margin-Other than Tumor,Mass,Lip or Yeny (HYPOPHARYNGEAL Procedures: HE/5, Gross/Micro L4/4, CINtec p16, FS HE/2, DIFF QWIK Patient: Valente Lucio [id number] (Continued) Specimen: [id number] Received: 12/05/23 (Continued) Signed (signatur e on file) Santosh Blood MD 12/09/23 8173 Specimen: [id number] Received: 12/05/23 Status: JHONY Rowley Num: [id number] Spec Type: Surgical Subm Dr: Jaswant Zaidi DO Tissues: A Soft Tissue/Surgical Margin-Other than Tumor,Mass,Lip or Yeny (HYPOPHARANGEAL B Soft Tissue/Surgical Margin-Other than Tumor,Mass,Lip or Yeny (RT EPIGLOTIC F C Soft Tissue/Surgical Margin-Other than Tumor,Mass,Lip or Yeny (RT LATERAL WAL D Soft Tissue/Surgical Margin-Other than Tumor,Mass,Lip or Yeny (HYPOPHARYNGEAL Procedures: HE/5, Gross/Micro L4/4, CINtec p16, FS HE/2, DIFF QWIK Patient: Valente Lucio [id number] (Continued) Specimen: [id number] Received: 12/05/23 (Continued) Pathological Diagnosis A, hypopharyngeal wall tumor, 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 B, right aryepiglottic fold, biopsy: fold-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 C, right lateral wall pyriform sinus, 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 Gross Description A. Received fresh for frozen labeled with the patient's name, date of and hypopharyngeal wall tumor frozen section are 4 pink-elizabeth tissue fragments ranging from 0.6 x 0.5 x 0.4 cm to 0.5 x 0.3 x 0.2 cm. The specimen is entirely submitted in A1 FS. B. Received in formalin labeled with the patient's name, date of and right aryepiglottic fold are 4 elizabeth tis (more content not included)... Normal The Replaced By [facility] CT SOFT TISSUE NECK W IV CON TRASTon 12-03-2023 CT SOFT TISSUE NECK W IV CONTRAST Asymmetric mucosal thickening on either side of midline within the oropharynx, left greater than the right. Soft tissue prominence may be accentuated by a cervical thoracic scoliosis and anterior osteophyte formation C5-C7. No airway compromise. No significant cervical lymphadenopathy. Normal major salivary glands, mastoid air cells intraorbital and intracranial contents. Mild left, moderate to severe right maxillary mucosal thickening with dependent layering fluid. Mild lateral ethmoid air cell mucosal thickening. Normal lung apices. No superior mediastinal lymphadenopathy. Normal thyroid volume. IMPRESSION: Impression: posterior oropharyngeal masslike soft tissue swelling accentuated by arthritic changes and scoliosis. Correlate with endoscopy 2. No significant cervical lymphadenopathy. ELECTRONICALLY SIGNED BY: Yandel Mac MD Normal Not Available Automated basophil %Ordered By: Jaswant Zaidi on 12-02-2023 Basophils/100 WBC (Bld) 0.6 % Normal . [facility] Comment on above: Performed By: #### C BC #### [facility] [address] [place] [address] Automated basophil countOrde red By: Jaswant Zaidi on 12-02-2023 Basophils (Bld) [#/Vol] 0.1 10*3/uL Normal 0.0-0.2 [facility] Comment on above: Result Comment: PERF ORMED BY: [place] [address] PATHOLOGIST CONCRETE CURER TRISTON MELGAR M.D. Performed By: #### C BC #### [address] Automated blood monocyte cou ntOrdered By: Jaswant Zaidi on 12-02-2023 Monocytes (Bld) [#/Vol] 0.7 10*3/uL Normal 0.0-0.8 [facility] Comment on above: Performed By: #### C BC #### [address] Automated eosinophil %Ordere d By: Jaswant Zaidi on 12-02-2023 Eosinophils/100 WBC (Bld) 1.9 % Normal . [facility] Comment on above: Performed By: #### C BC #### [address] Automated eosinophil countOr dered By: Jaswant Zaidi on 12-02-2023 Eosinophils (Bld) [#/Vol] 0.2 10*3/uL Normal 0.0-0.45 [facility] Comment on above: Performed By: #### C BC #### [address] Automated monocyte %Ordered By: Jaswant Zaidi on 12-02-2023 Monocytes/100 WBC (Bld) 7.1 % Normal . [facility] Comment on above: Performed By: #### C BC #### [address] Automated neutrophil %Ordere d By: Jaswant Zaidi on 12-02-2023 Neutrophils/100 WBC (Bld) 70.9 % Normal . [facility] Comment on above: Performed By: #### C BC #### [address] Basic Metabolic Panelon 11-21 GFR/1.73 sq M.predicted MDRD (S/P/Bld) [Vol rate/Area] mL/min/{1.73_m2} Normal The Replaced By [facility] Comment on above: Performed By: #### B MP #### [address] Calcium [Mass/volume] in Ser um or PlasmaOrdered By: Jaswant Zaidi on 12-02-2023 Calcium [Mass/Vol] 8.8 mg/dL Normal 8.6-10.3 [facility] Comment on above: Result Comment: PERF ORMED BY: [place] [address] PATHOLOGIST CONCRETE CURER TRISTON MELGAR M.D. Performed By: #### B MP #### [address] Carbon dioxide, total [Moles /volume] in Serum or PlasmaOrdered By: Jaswant Zaidi on 12-02-2023 CO2 [Moles/Vol] 28.3 mmol/L Normal 21.0-31.0 [facility] Comment on above: Performed By: #### B MP #### [address] Chloride [Moles/volume] in S neeru or PlasmaOrdered By: Jaswant Zaidi on 12-02-2023 Chloride [Moles/Vol] 103 mmol/L Normal 98-107 [facility] Comment on above: Performed By: #### B MP #### [address] Complete Blood Count Auto Di ffon 12-02-2023 Mean Corpuscular HGB Conc 33.4 g/dL Normal 32.5-35.6 The Replaced By [facility] Comment on above: Performed By: #### C BC #### [address] NRBC% 0.0 /100{WBC} Normal 0-0.5 [facility] Comment on above: Performed By: #### C BC #### [address] Creatinine [Mass/volume] in Serum or PlasmaOrdered By: Jaswant Zaidi on 12-02-2023 Creatinine [Mass/Vol] 0.90 mg/dL Normal 0.70-1.30 [facility] Comment on above: Performed By: #### B MP #### [address] ECG 12 lead ECGon 12-02-2023 ECG 12 lead ECG [facility] [place] [address] [place] [address] Electrocardiograph Report Signed Patient: Valente Lucio MR#: [id number] 34 : 1950 Acct:[id number] Age/Sex: 73 / M ADM Date: 12/02/23 Loc: Room: Type: [facility] Attending Dr: Jaswant Zaidi DO Ordering Provider: Jaswant Zaidi DO Date of Service: 12/02/2305/16/1307 ECG/ECG 12 lead ECG: pst Copies to: Test Reason : Blood Pressure : / mmHG Vent. Rate : 060 BPM Atrial Rate : 060 BPM P-R Int : 180 ms QRS Dur : 094 ms QT Int : 426 ms P-R-T Axes : 069 053 047 degrees QTc Int : 426 ms Normal sinus rhythm Septal infarct , age undetermined Confirmed by Tonio Pichardo ([id number]) on 12/03/2023 12:09:08 PM Referred By: Electronically Signed By:Tonio Pichardo Transcribed By: MUS Signed By Tonio Pichardo MD 12/03/23 1209 Normal The Replaced By [facility] Erythrocyte distribution wid th [Ratio] by Automated countOrdered By: Jaswatn Zaidi on 12-02-2023 Erythrocyte distribution width (RBC) [Ratio] 13.9 % Normal 12.0-14.8 [facility] Comment on above: Performed By: #### C BC #### [place] [address] [place] Erythrocytes [#/volume] in B lood by Automated countOrdered By: Jaswant Zaidi on 12-02-2023 RBC (Bld) [#/Vol] 4.45 10*6/uL Normal 3.90-5.60 [facility] Comment on above: Performed By: #### C BC #### [address] Glucose [Mass/volume] in Ser um or PlasmaOrdered By: Jaswant Zaidi on 12-02-2023 Glucose [Mass/Vol] 81 mg/dL Normal 70-100 [facility] Comment on above: ADA recommended refe rence rangeRandom Glucose Reference Range is dependent on time and content of last meal. Glucose of more than 200 mg/dL in a nonstressed, ambulatory subject supports the diagnosis of Diabetes Mellitus. Result Comment: Gerald om Glucose Reference Range is dependent on time and content of last meal. Glucose of more than 200 mg/dL in a nonstressed, ambulatory subject supports the diagnosis of Diabetes Mellitus. ADA recommended reference range Performed By: #### B MP #### [address] Hematocrit [Volume Fraction] of Blood by Automated countOrdered By: Jaswant Zaidi on 12-02-2023 Hematocrit (Bld) [Volume fraction] 42.2 % Normal 38.8-50.0 [facility] Comment on above: Performed By: #### C BC #### [address] Hemoglobin [Mass/volume] in BloodOrdered By: Jaswant Zaidi on 12-02-2023 Hemoglobin (Bld) [Mass/Vol] 14.1 g/dL Normal 13.0-17.0 [facility] Comment on above: Performed By: #### C BC #### [place] [address] [place] Leukocytes [#/volume] correc tejal for nucleated erythrocytes in Blood by Automated counOrdered By: Jaswant Zaidi on 12-02-2023 WBC corrected for nucl RBC Auto (Bld) [#/Vol] 9.3 10*3/uL 4.1-10.5 [facility] Leukocytes [#/volume] in Blo od by Automated countOrdered By: Jaswant Zaidi on 12-02-2023 WBC (Bld) [#/Vol] 9.3 10*3/uL Normal 4.1-10.5 [facility] Comment on above: Performed By: #### C BC #### [address] Lymphocytes [#/volume] in Bl ood by Automated countOrdered By: Jaswant Zaidi on 12-02-2023 Lymphocytes (Bld) [#/Vol] 1.8 10*3/uL Normal 1.00-4.8 [facility] Comment on above: Performed By: #### C BC #### [place] [address] [place] Lymphocytes/100 leukocytes i n Blood by Automated countOrdered By: Jaswant Zaidi on 12-02-2023 Lymphocytes/100 WBC (Bld) 19.5 % Normal . [facility] Comment on above: Performed By: #### C BC #### [place] [address] [place] MCH [Entitic mass] by Automa tejal countOrdered By: Jaswant Zaidi on 12-02-2023 MCH (RBC) [Entitic mass] 31.6 pg Normal 27.5-35.2 [facility] Comment on above: Performed By: #### C BC #### [address] MCHC Auto (RBC) [Mass/Vol]Or dered By: Jaswant Zaidi on 12-02-2023 MCHC (RBC) [Mass/Vol] 33.4 g/dL 32.5-35.6 [facility] MCV [Entitic volume] by Auto mated countOrdered By: Jaswant Zaidi on 12-02-2023 MCV (RBC) [Entitic vol] 94.7 fL Normal 83.5-101 [facility] Comment on above: Performed By: #### C BC #### [place] [address] [place] Neutrophils [#/volume] in Bl ood by Automated countOrdered By: Jaswant Zaidi on 12-02-2023 Neutrophils (Bld) [#/Vol] 6.6 10*3/uL Normal 1.8-7.7 [facility] Comment on above: Performed By: #### C BC #### [address] No Panel InformationOrdered By: Jaswant Zaidi on 12-02-2023 Estimated GFR (CKD-EPI) > 60.0 mL/Min [facility] Creatinine Clearance (Chem N/A [facility] Nucleated erythrocytes [Pres ence] in Blood by Automated countOrdered By: Jaswant Zaidi on 12-02-2023 Nucleated RBC Auto Ql (Bld) 0.0 /100{WBC} 0-0.5 [facility] Platelet mean volume [Entiti c volume] in Blood by Automated countOrdered By: Jaswant Zaidi on 12-02-2023 Platelet mean volume (Bld) [Entitic vol] 8.4 fL Normal 6.6-10.1 [facility] Comment on above: Performed By: #### C BC #### [address] Platelets [#/volume] in Bloo d by Automated countOrdered By: Jaswant Zaidi on 12-02-2023 Platelets (Bld) [#/Vol] 240 10*3/uL Normal 150-450 [facility] Comment on above: Performed By: #### C BC #### [address] Potassium [Moles/volume] in Serum or PlasmaOrdered By: Jaswant Zaidi on 12-02-2023 Potassium [Moles/Vol] 4.5 mmol/L Normal 3.5-5.1 [facility] Comment on above: Performed By: #### B MP #### [address] Serum or plasma anion gap de terminationOrdered By: Jaswant Zaidi on 12-02-2023 Anion gap [Moles/Vol] 10.2 mmol/L Normal 6.0-15.0 [facility] Comment on above: Performed By: #### B MP #### [facility] [address] [place] [address] [place] Sodium [Moles/volume] in Ser um or PlasmaOrdered By: Jaswant Zaidi on 12-02-2023 Sodium [Moles/Vol] 137 mmol/L Normal 136-145 [facility] Comment on above: Performed By: #### B MP #### [facility] [address] Urea nitrogen [Mass/volume] in Serum or PlasmaOrdered By: Jaswant Zaidi on 12-02-2023 Urea nitrogen [Mass/Vol] 11 mg/dL Normal 7-25 [facility] Comment on above: Performed By: #### B MP #### [facility] [address] Amphetamine Screen Ql (U)Ord ered By: Vinicio Tamez on 11-28-2023 Amphetamines Ql (U) Negative Negative [facility] Barbiturates [Presence] in U rine by Screen methodOrdered By: Vinicio Tamez on 11-28-2023 Barbiturates Screen Ql (U) Negative Negative [facility] Benzodiazepines Screen Ql (U )Ordered By: Vinicio Tamez on 11-28-2023 Benzodiazepines Ql (U) Negative Negative [facility] Benzoylecgonine [Presence] i n Urine by Screen methodOrdered By: Vinicio Tamez on 11-28-2023 Benzoylecgonine Screen Ql (U) Negative Negative [facility] Cannabinoids [Presence] in U rine by Screen methodOrdered By: Vinicio Tamez on 11-28-2023 Cannabinoids Screen Ql (U) Positive High Negative [facility] Comment on above: These are unconfirme d results and should not be used for legal purposes. Drug Cut-Off Concentration: AMPH 1000 ng/mL JASEN 200 ng/mL FRANCOIS 200 ng/mL COCM 300 ng/mL OP 300 ng/mL PCP 25 ng/mL THC 20 ng/mL Drug Screen,Urineon 11-28-19 24 Amphetamine Screen,Urine Negative Normal Negative The Replaced By [facility] Comment on above: Performed By: #### U RDS #### [address] Barbiturate Screen,Urine Negative Normal Negative The Replaced By [facility] Comment on above: Performed By: #### U RDS #### [address] Benzodiazepines Screen,Urine Negative Normal Negative The Replaced By [facility] Comment on above: Performed By: #### U RDS #### [address] Cannabinoid Screen,Urine Positive High Negative The Replaced By [facility] Comment on above: Result Comment: Thes e are unconfirmed results and should not be used for legal purposes. Drug Cut-Off Concentration: AMPH 1000 ng/mL JASEN 200 ng/mL FRANCOIS 200 ng/mL COCM 300 ng/mL OP 300 ng/mL PCP 25 ng/mL THC 20 ng/mL PERFORMED BY: [place] [address] PATHOLOGIST CONCRETE CURER TRISTON MELGAR M.D. Performed By: #### U RDS #### [address] Cocaine Screen,Urine Negative Normal Negative The Replaced By [facility] Comment on above: Performed By: #### U RDS #### [address] Opiate Screen,Urine Negative Normal Negative [facility] Comment on above: Performed By: #### U RDS #### [place] [address] [place] Phencyclidine Screen,Urine Negative Normal Negative The Replaced By [facility] Comment on above: Performed By: #### U RDS #### [address] Opiates [Presence] in Urine by Screen methodOrdered By: Vinicio Tamez on 11-28-2023 Opiates Screen Ql (U) Negative Negative [facility] Phencyclidine Screen Ql (U)O rdered By: Vinicio Tamez on 11-28-2023 Phencyclidine Ql (U) Negative Negative [facility] IRON AND TIBCon 2023 TBH IRON 76.0 ug/dL 65.0 - 175.0 ug/dL [facility] TB PERCENT IRON SATURATION 28.9 % [facility] TB TOTAL IRON BINDING CAPACITY 263.0 ug/dL 250.0 - 450.0 ug/dL [facility] Vital Signs Date Time Vital Sign Value Performing Clinician Facility 03-30-2024 10:02-0400 Body height 177.8 cm Jaswant Zaidi DO Work Phone: [facility] 03-30-2024 10:02-0400 Body mass index (BMI) [Ratio] 26.54 kg/m2 Jaswant Willk DO Work Phone: [facility] 03-30-2024 10:02-0400 Body weight 83.92 kg Jaswant Zaidi DO Work Phone: [facility] 03-29-2024 12:55-0400 Body weight 82.55 kg MARY LOU Liu Work Phone: [facility] 03-04-2024 10:02-0400 Body height 177.8 cm MANAGER SPORTSSriram Liu Work Phone: [facility] 03-04-2024 10:02-0400 Body mass index (BMI) [Ratio] 26 kg/m2 MANAGER SPORTSSriram Liu Work Phone: [facility] 03-04-2024 10:02-0400 Body weight 82.27 kg MANAGER SPORTSSriram Liu Work Phone: [facility] 03-04-2024 10:02-0400 Diastolic blood pressure 80 mm[Hg] MARY LOU Liu Work Phone: [facility] 03-04-2024 10:02-0400 Heart rate 95 /min MANAGER SPORTSSriram Liu Work Phone: [facility] 03-04-2024 10:02-0400 Respiratory rate 18 /min [employer]NAGER [employer] Perlita Rohrbacher Work Phone: [facility] 03-04-2024 10:02-0400 SaO2% (BldA) [Mass fraction] 97 % [employer]NA[employer] Perlita Barbararbacher Work Phone: [facility] 03-04-2024 10:02-0400 Systolic blood pressure 138 mm[Hg] MANAGER SPORTSSriram Jimenezrbacher Work Phone: [facility] 02-27-2024 13:25-0400 Body temperature 98 [degF] MANA[employer] Perlita Barbararbacher Work Phone: [facility] 02-27-2024 13:25-0400 Diastolic blood pressure 75 mm[Hg] MANAGER SPORTSSriram Jimenezrbacher Work Phone: [facility] 02-27-2024 13:25-0400 Heart rate 87 /min MANAGER SPORTSSriram Jimenezrbacher Work Phone: [facility] 02-27-2024 13:25-0400 Respiratory rate 20 /min [employer]NA[employer] Perlita Barbararbacher Work Phone: [facility] 02-27-2024 13:25-0400 SaO2% (BldA) [Mass fraction] 100 % [employer]NA[employer] Perlita Barbararbacher Work Phone: [facility] 02-27-2024 13:25-0400 Systolic blood pressure 125 mm[Hg] MANAGER SPORTSSriram Jimenezrbacher Work Phone: [facility] 02-26-2024 08:06-0400 Body height 177.8 cm MANAGER SPORTSSriram Jimenezrbacher Work Phone: [facility] 02-19-2024 16:03-0400 Body height 177.8 cm MANAGER SPORTSSriram Jimenezrbacher Work Phone: [facility] 02-19-2024 10:23-0400 Body temperature 97.9 [degF] MANAGER SPORTSSriram Jimenezrbacher Work Phone: [facility] 02-19-2024 10:23-0400 Body weight 82.1 kg MANAGER [employer] Perlita Barbararbacher Work Phone: [facility] 02-19-2024 10:23-0400 Diastolic blood pressure 76 mm[Hg] MANAGER SPORTSSriram DesaiPerlita Barbararbacher Work Phone: [facility] 02-19-2024 10:23-0400 Heart rate 88 /min MANAGER SPORTSSriram DesaiEprlita Barbararbacher Work Phone: [facility] 02-19-2024 10:23-0400 Respiratory rate 18 /min MANAGER SPORTSSriram DesaiPerlita Barbararbacher Work Phone: [facility] 02-19-2024 10:23-0400 SaO2% (BldA) [Mass fraction] 95 % MANAGER SPORTSSriram Jimenezrbacher Work Phone: [facility] 02-19-2024 10:23-0400 Systolic blood pressure 121 mm[Hg] MANAGER SPORTSSriram BishopPerlita Barbararbacher Work Phone: [facility] 02-18-2024 14:02-0400 Body temperature 98 [degF] MANAGER SPORTS Perlita Barbararbacher Work Phone: [facility] 02-18-2024 14:02-0400 Body weight 82.1 kg MANAGER SPORTSSriram Jimenezrbacher Work Phone: [facility] 02-18-2024 14:02-0400 Diastolic blood pressure 77 mm[Hg] MANAGER SPORTSSriram Jimenezrbacher Work Phone: [facility] 02-18-2024 14:02-0400 Heart rate 78 /min MANAGER SPORTSSriram Jimenezrbacher Work Phone: [facility] 02-18-2024 14:02-0400 Respiratory rate 20 /min MANAGER SPORTSSriram Jimenezrbacher Work Phone: [facility] 02-18-2024 14:02-0400 SaO2% (BldA) [Mass fraction] 98 % MANAGER SPORTSSriram Jimenezrbacher Work Phone: [facility] 02-18-2024 14:02-0400 Systolic blood pressure 128 mm[Hg] MANAGER SPORTSSriram DesaiPerlita Rohrbacher Work Phone: [facility] 02-09-2024 13:58-0400 Body temperature 97.7 [degF] MANAGER SPORTSSriram Jimenezrbacher Work Phone: [facility] 02-09-2024 13:58-0400 Body weight 79.83 kg MANAGER SPORTSSriram Jimenezrbacher Work Phone: [facility] 02-09-2024 13:58-0400 Diastolic blood pressure 87 mm[Hg] MANAGER SPORTSSirram Jimenezrbacher Work Phone: [facility] 02-09-2024 13:58-0400 Heart rate 75 /min MANAGER SPORTSSriram Jimenezrbacher Work Phone: [facility] 02-09-2024 13:58-0400 Respiratory rate 20 /min MANAGER SPORTSSriram Jimenezrbacher Work Phone: [facility] 02-09-2024 13:58-0400 SaO2% (BldA) [Mass fraction] 95 % MANAGER SPORTSSriram Jimenezrbacher Work Phone: [facility] 02-09-2024 13:58-0400 Systolic blood pressure 125 mm[Hg] MANAGER SPORTSSriram Jimenezrbacher Work Phone: [facility] 02-03-2024 12:30-0400 Diastolic blood pressure 79 mm[Hg] MANAGER SPORTSSriram Jimenezrbacher Work Phone: [facility] 02-03-2024 12:30-0400 Heart rate 87 /min MANAGER SPORTSSriram Jimenezrbacher Work Phone: [facility] 02-03-2024 12:30-0400 Respiratory rate 20 /min MANAGER SPORTS Perlita Barbararbacher Work Phone: [facility] 02-03-2024 12:30-0400 SaO2% (BldA) [Mass fraction] 94 % MANAGER SPORTS Perlita Barbararbacher Work Phone: [facility] 02-03-2024 12:30-0400 Systolic blood pressure 140 mm[Hg] MANAGER SPORTSSriram BishopPerlita Giselaacher Work Phone: [facility] 02-03-2024 12:01-0400 Inhaled oxygen flow rate 8 L/min MANAGER SPORTSSriram DesaiPerlita Giselaacher Work Phone: [facility] 02-03-2024 10:49-0400 Body height 177.8 cm MANAGER SPORTSSriram DesaiPerlita Barbararbacher Work Phone: [facility] 02-03-2024 10:49-0400 Body temperature 98.3 [degF] MARY LOU Bishopnifer Giselaacher Work Phone: [facility] 02-03-2024 10:49-0400 Body weight 81.64 kg MANAGER SPORTS Perlita Giselaacher Work Phone: [facility] 02-02-2024 14:27-0400 Body height 177.8 cm MANAGER SPORTS Perlita Barbarakorinaacher Work Phone: [facility] 02-02-2024 11:00-0400 Body temperature 97.6 [degF] MARY LOU Bishopnifer Barbararbacher Work Phone: [facility] 02-02-2024 11:00-0400 Diastolic blood pressure 76 mm[Hg] MANAGER SPORTSSriram DesaiPerlita Giselaacher Work Phone: [facility] 02-02-2024 11:00-0400 Heart rate 94 /min MARY LOU Jimenezrbacher Work Phone: [facility] 02-02-2024 11:00-0400 Respiratory rate 17 /min MANAGER SPORTS Perlita Rohrbacher Work Phone: [facility] 02-02-2024 11:00-0400 SaO2% (BldA) [Mass fraction] 95 % MANAGER SPORTSSriram DesaiPerlita Giselaacher Work Phone: [facility] 02-02-2024 11:00-0400 Systolic blood pressure 138 mm[Hg] MANAGER SPORTSSriram Higginsacher Work Phone: [facility] 01-26-2024 13:56-0400 Body height 177.8 cm MANAGER SPORTSSriram DesaiPerlita Barbararbacher Work Phone: [facility] 01-26-2024 13:56-0400 Body mass index (BMI) [Ratio] 26.8 kg/m2 MARY LOU Jimenezrbacher Work Phone: [facility] 01-26-2024 13:56-0400 Body temperature 98 [degF] MANAGER SPORTSSriram Higginsacher Work Phone: [facility] 01-26-2024 13:56-0400 Body weight 84.82 kg MANAGER SPORTSSriram Higginsacher Work Phone: [facility] 01-26-2024 13:56-0400 Diastolic blood pressure 65 mm[Hg] MARY LOU Jimenezrbacher Work Phone: [facility] 01-26-2024 13:56-0400 Heart rate 81 /min MANAGER SPORTSSriram Higginsacher Work Phone: [facility] 01-26-2024 13:56-0400 Respiratory rate 18 /min MANAGER SPORTSSriram Jimenezrbacher Work Phone: [facility] 01-26-2024 13:56-0400 SaO2% (BldA) [Mass fraction] 96 % MARY LOU Higginsacher Work Phone: [facility] 01-26-2024 13:56-0400 Systolic blood pressure 114 mm[Hg] MANAGER SPORTS Perlita Rohrbacher Work Phone: [facility] 01-22-2024 13:05-0400 Body height 177.8 cm MANAGER SPORTSSriram Bhat Barbararbacher Work Phone: [facility] 01-22-2024 10:27-0400 Body temperature 98.2 [degF] MANAGER SPORTSSriram Bhat Barbararbacher Work Phone: [facility] 01-22-2024 10:27-0400 Body weight 86.36 kg MANAGER SPORTSSriram Bhat Barbararbacher Work Phone: [facility] 01-22-2024 10:27-0400 Diastolic blood pressure 69 mm[Hg] MANAGER SPORTSSriram Bhat Barbararbacher Work Phone: [facility] 01-22-2024 10:27-0400 Heart rate 84 /min MANAGER SPORTS Perlita Barbararbacher Work Phone: [facility] 01-22-2024 10:27-0400 Respiratory rate 16 /min MANAGER SPORTSSriram Bhat Barbararbacher Work Phone: [facility] 01-22-2024 10:27-0400 SaO2% (BldA) [Mass fraction] 96 % MANAGER SPORTSSriram Bhat Barbararbacher Work Phone: [facility] 01-22-2024 10:27-0400 Systolic blood pressure 131 mm[Hg] MANAGER SPORTS Perlita Barbararbacher Work Phone: [facility] 01-15-2024 16:54-0400 Body height 177.8 cm MANAGER SPORTS Perlita Barbararbacher Work Phone: [facility] 01-15-2024 10:08-0400 Body temperature 98.2 [degF] MANAGER SPORTS Perlita Barbararbacher Work Phone: [facility] 01-15-2024 10:08-0400 Body weight 88.22 kg MANAGER SPORTS Perlita Barbararbacher Work Phone: [facility] 01-15-2024 10:08-0400 Diastolic blood pressure 79 mm[Hg] MANAGER SPORTSSriram Jimenezrbacher Work Phone: [facility] 01-15-2024 10:08-0400 Heart rate 74 /min MANAGER SPORTSSriram DesaiPerlita Barbararbacher Work Phone: [facility] 01-15-2024 10:08-0400 Respiratory rate 18 /min MANAGER SPORTSSriram DesaiPerlita Barbararbacher Work Phone: [facility] 01-15-2024 10:08-0400 SaO2% (BldA) [Mass fraction] 97 % MANAGER SPORTSSriram Jimenezrbacher Work Phone: [facility] 01-15-2024 10:08-0400 Systolic blood pressure 154 mm[Hg] MANAGER SPORTSSriram Jimenezrbacher Work Phone: [facility] 01-08-2024 16:57-0400 Body height 177.8 cm MANAGER SPORTSSriram Jimenezrbacher Work Phone: [facility] 01-08-2024 10:19040 Body temperature 98.7 [degF] MANAGER SPORTS Perlita Barbararbacher Work Phone: [facility] 01-08-2024 10:190400 Body weight 88.45 kg MANAGER SPORTSSriram Jimenezrbacher Work Phone: [facility] 01-08-2024 10:19-0400 Diastolic blood pressure 64 mm[Hg] MANAGER SPORTSSriram Jimenezrbacher Work Phone: [facility] 01-08-2024 10:190400 Heart rate 60 /min MANAGER SPORTSSriram Jimenezrbacher Work Phone: [facility] 01-08-2024 10:190400 Respiratory rate 18 /min MANAGER SPORTSSriram Jimenezrbacher Work Phone: [facility] 01-08-2024 10:19-0400 SaO2% (BldA) [Mass fraction] 95 % MANAGER SPORTSSriram Higginsacher Work Phone: [facility] 01-08-2024 10:19-0400 Systolic blood pressure 132 mm[Hg] MANAGER SPORTSSriram Jimenezrbacher Work Phone: [facility] 01-07-2024 09:26-0400 Body height 177.8 cm MANAGER SPORTSSriram Higginsacher Work Phone: [facility] 01-07-2024 09:26-0400 Body mass index (BMI) [Ratio] 27.6 kg/m2 MANAGER SPORTSSriram Higginsacher Work Phone: [facility] 01-07-2024 09:26-0400 Body weight 87.54 kg MANAGER SPORTSSriram Higginsacher Work Phone: [facility] 01-07-2024 09:26-0400 Diastolic blood pressure 66 mm[Hg] MARY LOU Higginsacher Work Phone: [facility] 01-07-2024 09:26-0400 Heart rate 68 /min MANAGER SPORTSSriram Higginsacher Work Phone: [facility] 01-07-2024 09:26-0400 SaO2% (BldA) [Mass fraction] 98 % MARY LOU Higginsacher Work Phone: [facility] 01-07-2024 09:26-0400 Systolic blood pressure 114 mm[Hg] MARY LOU Higginsacher Work Phone: [facility] 01-01-2024 17:15-0400 Body height 177.8 cm MARY LOU Higginsacher Work Phone: [facility] 01-01-2024 09:58-0400 Body temperature 98.2 [degF] MARY LOU Higginsacher Work Phone: [facility] 01-01-2024 09:58-0400 Body weight 89.53 kg MANAGER SPORTSSriram DesaiPerlita Barbararbacher Work Phone: [facility] 01-01-2024 09:58-0400 Diastolic blood pressure 64 mm[Hg] MANAGER SPORTSSriram DesaiPerlita Barbararbacher Work Phone: [facility] 01-01-2024 09:58-0400 Heart rate 83 /min MANAGER SPORTSSriram DesaiPerlita Barbararbacher Work Phone: [facility] 01-01-2024 09:58-0400 Respiratory rate 18 /min MANAGER SPORTSSriram DesaiPerlita Barbararbacher Work Phone: [facility] 01-01-2024 09:58-0400 SaO2% (BldA) [Mass fraction] 96 % MANAGER SPORTSSriram DesaiPerlita Barbararbacher Work Phone: [facility] 01-01-2024 09:58-0400 Systolic blood pressure 153 mm[Hg] MANAGER SPORTSSriram Jimenezrbacher Work Phone: [facility] 12-22-2023 14:03-0400 Body height 177.8 cm MANAGER SPORTSSriram DesaiPerlita Giselaacher Work Phone: [facility] 12-22-2023 14:03-0400 Body mass index (BMI) [Ratio] 28.7 kg/m2 MANAGER SPORTSSriram Jimenezrbacher Work Phone: [facility] 12-22-2023 14:03-0400 Body temperature 98.3 [degF] MANAGER SPORTSSriram Jimenezrbacher Work Phone: [facility] 12-22-2023 14:03-0400 Body weight 90.71 kg MANAGER SPORTSSriram Jimenezrbacher Work Phone: [facility] 12-22-2023 14:03-0400 Diastolic blood pressure 67 mm[Hg] MARY LOU Jimenezrbacher Work Phone: [facility] 12-22-2023 14:03-0400 Heart rate 61 /min MANAGER SPORTSSriram Jimenezrbacher Work Phone: [facility] 12-22-2023 14:03-0400 Respiratory rate 20 /min MANAGER SPORTSSriram Jimenezrbacher Work Phone: [facility] 12-22-2023 14:03-0400 SaO2% (BldA) [Mass fraction] 95 % MANAGER SPORTS Perlita Jimenezrbacher Work Phone: [facility] 12-22-2023 14:03-0400 Systolic blood pressure 124 mm[Hg] MANAGER SPORTS Perlita Barbararbacher Work Phone: [facility] 12-17-2023 15:13-0400 Body height 177.8 cm MANAGER SPORTS Perlita Jimenezrbacher Work Phone: [facility] 12-17-2023 15:13-0400 Body mass index (BMI) [Ratio] 28.6 kg/m2 MANAGER SPORTSSriram Jimenezrbacher Work Phone: [facility] 12-17-2023 15:13-0400 Body weight 90.52 kg MANAGER SPORTSSriram Jimenezrbacher Work Phone: [facility] 12-17-2023 15:13-0400 Diastolic blood pressure 80 mm[Hg] MANAGER SPORTS Perlita Jimenezrbacher Work Phone: [facility] 12-17-2023 15:13-0400 Heart rate 69 /min MANAGER SPORTS Perlita Jimenezrbacher Work Phone: [facility] 12-17-2023 15:13-0400 Respiratory rate 18 /min MANAGER SPORTSSriram Jimenezrbacher Work Phone: [facility] 12-17-2023 15:13-0400 SaO2% (BldA) [Mass fraction] 95 % MANAGER SPORTS Perlita Jimenezrbacher Work Phone: [facility] 12-17-2023 15:13-0400 Systolic blood pressure 119 mm[Hg] MANAGER SPORTS Perlita Giselaacher Work Phone: [facility] 11-28-2023 13:01-0400 Diastolic blood pressure 85 mm[Hg] MANAGER SPORTS Perlita Giselaacher Work Phone: [facility] 11-28-2023 13:01-0400 Heart rate 60 /min MANAGER SPORTS Perlita Giselaacher Work Phone: [facility] 11-28-2023 13:01-0400 Respiratory rate 16 /min MANAGER SPORTS Perlita Giselaacher Work Phone: [facility] 11-28-2023 13:01-0400 SaO2% (BldA) [Mass fraction] 94 % MANAGER SPORTS Perlita Giselaacher Work Phone: [facility] 11-28-2023 13:01-0400 Systolic blood pressure 146 mm[Hg] MANAGER SPORTSSriram BishopPerlita Giselaacher Work Phone: [facility] 11-28-2023 10:31-0400 Body height 177.8 cm MANAGER SPORTS Perliat Giselaacher Work Phone: [facility] 11-28-2023 10:31-0400 Body temperature 98.4 [degF] MANAGER SPORTS Perlita Giselaacher Work Phone: [facility] 11-28-2023 10:31-0400 Body weight 90.7 kg MANAGER SPORTS Perlita Barbarakorinaacher Work Phone: [facility] 11-11-2023 09:20-0400 Body height 177.8 cm [facility] 11-11-2023 09:20-0400 Body mass index (BMI) [Ratio] 29 kg/m2 [facility] 11-11-2023 09:20-0400 Body weight 91.62 kg [facility] 11-11-2023 09:20-0400 Diastolic blood pressure 76 mm[Hg] [facility] 11-11-2023 09:20-0400 Heart rate 66 /min [facility] 11-11-2023 09:20-0400 SaO2% (BldA) [Mass fraction] 97 % [facility] 11-11-2023 09:20-0400 Systolic blood pressure 146 mm[Hg] [facility] 08-27-2023 08:47-0500 Body height 177.8 cm [facility] 08-27-2023 08:47-0500 Body mass index (BMI) [Ratio] 29.2 kg/m2 [facility] 08-27-2023 08:47-0500 Body weight 92.53 kg [facility] 08-27-2023 08:47-0500 Diastolic blood pressure 74 mm[Hg] [facility] 08-27-2023 08:47-0500 Heart rate 55 /min [facility] 08-27-2023 08:47-0500 SaO2% (BldA) [Mass fraction] 98 % [facility] 08-27-2023 08:47-0500 Systolic blood pressure 134 mm[Hg] [facility] 08-22-2023 10:41-0500 Body height 177.8 cm [facility] 08-22-2023 10:41-0500 Body mass index (BMI) [Ratio] 28.4 kg/m2 [facility] 08-22-2023 10:41-0500 Body weight 89.81 kg [facility] 08-22-2023 10:41-0500 Diastolic blood pressure 73 mm[Hg] [facility] 08-22-2023 10:41-0500 Heart rate 64 /min [facility] 08-22-2023 10:41-0500 Systolic blood pressure 131 mm[Hg] [facility] Encounters Encounter Date Encounter Type Care Provider Facility Start: 03-30-2024 End: 03-30-2024 Bamboo flowsmaxime Zaidi DO Work Phone: [facility] Start: 03-30-2024 End: 03-30-2024 Bamboo flowsmaxime Zaidi DO Work Phone: [facility] Start: 03-30-2024 End: 03-30-2024 Office outpatient visit 25 minutes Jaswant Aguero Rosascielo DO Work Phone: [facility] Comment on above: Malignant neoplasm o f larynx (CMS/HCC) (Primary Dx); History of head and neck radiation Start: 03-30-2024 End: 03-30-2024 ambulatory JASWANT Aguero ROSASCIELO Not Available Start: 03-29-2024 Registered Recurring MANAGER SPORTS [facility] Work [facility]: Start: 03-29-2024 ambulatory Perliat Liu Fac ility:[facility] Start: 03-29-2024 Non-patient / Non-visit MARY LOU Liu Work Phone: Replaced By [facility] Work Phone: Start: 03-29-2024 End: 03-29-2024 Patient encounter procedure MANAGER SPORTSSriram Liu Work Phone: [facility] Start: 03-29-2024 End: 03-29-2024 ambulatory Perlita Liu Facility:[facility] Start: 03-04-2024 End: 03-04-2024 Patient encounter procedure MARY LOU Liu Work Phone: Replaced By [facility] Work Phone: Start: 02-27-2024 End: 02-27-2024 Patient encounter procedure MANAGER SPORTSSriram Liu Work Phone: [facility] Work Phone: Start: 02-26-2024 ambulatory Perlita Higginsacher Fac ility:[facility] Start: 02-26-2024 Registered Recurring MANAGER SPORTSSriram Liu Work Phone: [facility] Start: 02-24-2024 Registered Recurring MANAGER SPORTSSriram Liu [facility] Work [facility]: Start: 02-24-2024 Non-patient / Non-visit MARY LOU Liu Work Phone: [facility] Work Phone: Start: 02-24-2024 End: 02-24-2024 ambulatory JASWANT ZAIDI Not Available Start: 02-24-2024 End: 02-24-2024 Patient encounter procedure MARY LOU Liu Work Phone: [facility] Start: 02-24-2024 End: 02-24-2024 ambulatory MARY LOU Liu Work Phone: [facility] Work Phone: Start: 02-19-2024 End: 02-19-2024 ambulatory SHANELLE DELATORREJUAN M Not Available Start: 02-18-2024 End: 02-18-2024 Patient encounter procedure MARY LOU Liu Work Phone: [facility] Work Phone: Start: 02-18-2024 Non-patient / Non-visit MARY LOU Liu Work Phone: [facility] Work Phone: Start: 02-18-2024 Registered Recurring MANAGER SPORTSSriram Liu Work Phone: [facility] Work Phone: Start: 02-18-2024 Non-patient / Non-visit MARY LOU Liu Work Phone: [facility] Work Phone: Start: 02-18-2024 End: 02-18-2024 Patient encounter procedure MANAGER SPORTS Perlita Alexa Work Phone: [facility] Start: 02-18-2024 End: 02-18-2024 ambulatory MANAGER SPORTS Perlita Alexa Work Phone: [facility] Work Phone: Start: 02-16-2024 Non-patient / Non-visit MANAGER SPORTSSriram kruegerjoesarah beth Loweryr Work Phone: [facility] Work Phone: Start: 02-11-2024 Non-patient / Non-visit MANAGER SPORTS Leonel Loweryr Work Phone: [facility] Work Phone: Start: 02-09-2024 Non-patient / Non-visit MANAGER SPORTS Leonel Loweryr Work Phone: [facility] Work Phone: Start: 02-09-2024 End: 02-09-2024 Patient encounter procedure MANAGER SPORTS Perlitasarah beth Liu Work Phone: [facility] Work Phone: Start: 02-09-2024 End: 02-09-2024 ambulatory MANAGER SPORTSSriram BishopPerlitasarah beth Liu Work Phone: [facility] Work Phone: Start: 02-09-2024 Registered Recurring MANAGER SPORTSSriram Liu Work Phone: [facility] Work Phone: Start: 02-03-2024 End: 02-03-2024 Admission to same day surgery center MARY LOU Liu Work Phone: [facility] [place] Start: 02-03-2024 End: 02-03-2024 ambulatory MANAGER SPORTSSriram Liu Work Phone: [facility] Work Phone: Start: 02-02-2024 Registered Recurring MANAGER SPORTS Sally jack Rohrbacher Work Phone: [facility] Work Phone: Start: 02-02-2024 Non-patient / Non-visit MANAGER SPORTS Leonel evansmelania Barbararbacher Work Phone: Replaced By [facility] Work Phone: Start: 02-02-2024 End: 02-02-2024 Patient encounter procedure MANAGER SPORTS Perlita Barbararbacher Work Phone: [facility] Start: 02-02-2024 End: 02-02-2024 ambulatory MANAGER SPORTS Perlita Barbararbacher Work Phone: [facility] Work Phone: Start: 01-29-2024 End: 01-29-2024 ambulatory SHANELLE Aditya MOHAMUD Not Available Start: 01-29-2024 Registered Recurring MANAGER SPORTS Sally jack Barbararbacher Work Phone: [facility] Start: 01-28-2024 Non-patient / Non-visit MANAGER SPORTS Leonel hardin Barbararbacher Work Phone: [facility] Work Phone: Start: 01-26-2024 End: 01-26-2024 Patient encounter procedure MANAGER SPORTSSriram Bhat Barbararbacher Work Phone: [facility] Work Phone: Start: 01-26-2024 Non-patient / Non-visit MANAGER SPORTS Leonel evansmelania Barbararbacher Work Phone: Replaced By [facility] Work Phone: Start: 01-26-2024 Registered Recurring MANAGER SPORTS Sally lawrencebreanna Jimenezrbacher [facility] Work [facility]: Start: 01-26-2024 End: 01-26-2024 Patient encounter procedure MANAGER SPORTSSriram Bhat Barbarajohnnyr Work Phone: [facility] Start: 01-26-2024 End: 01-26-2024 ambulatory MANAGER SPORTSSriram Bhat Giselalavonr Work Phone: [facility] Work Phone: Start: 01-23-2024 Registered Recurring MANAGER SPORTSSriram jack Barbarakorinaacher Work Phone: [facility] Work Phone: Start: 01-23-2024 Non-patient / Non-visit MANAGER SPORTS Leonel evansjoesarah beth Jimenezrbacher Work Phone: [facility] Work Phone: Start: 01-23-2024 End: 01-23-2024 Patient encounter procedure MANAGER SPORTSSriram Bhat Barbarajohnnyr Work Phone: [facility] Start: 01-23-2024 End: 01-23-2024 ambulatory MARY LOU Bhat Giselaacher Work Phone: [facility] Work Phone: Start: 01-21-2024 Non-patient / Non-visit MANAGER SPORTSSriram Jimenezrbacher Work Phone: [facility] Work Phone: Start: 01-20-2024 Non-patient / Non-visit MANAGER SPORTSSriram Jimenezrbacher Work Phone: [facility] Work Phone: Start: 01-20-2024 End: 01-20-2024 ambulatory JASWANT ZAIDI Not Available Start: 01-19-2024 Non-patient / Non-visit MANAGER SPORTSSriram Jimenezrbacher Work Phone: [facility] Work Phone: Start: 01-19-2024 Registered Recurring MANAGER SPORTS Sally jack Rohrbacher [facility] Work [facility]: Start: 01-19-2024 Non-patient / Non-visit MANAGER SPORTS Leonel hardin Barbararbacher Work Phone: [facility] Work Phone: Start: 01-19-2024 Non-patient / Non-visit MANAGER SPORTS Leonel hardin Rohrbacher Work Phone: [facility] Work Phone: Start: 01-19-2024 End: 01-19-2024 Patient encounter procedure MANAGER SPORTSSriram Bhat Barbararbacher Work Phone: [facility] Start: 01-19-2024 End: 01-19-2024 ambulatory MANAGER SPORTSSriram Bhat Barbararbacher Work Phone: [facility] Work Phone: Start: 01-15-2024 Registered Recurring MANAGER SPORTS Sally jack Rohrbacher [facility] Start: 01-13-2024 Non-patient / Non-visit MANAGER SPORTS Leonel hardin Barbararbacher Work Phone: [facility] Work Phone: Start: 01-12-2024 Registered Recurring MANAGER SPORTS Sally jack Rohrbacher [facility] Work [facility]: Start: 01-12-2024 Non-patient / Non-visit MANAGER SPORTS Leonel hardin Rohrbacher Work Phone: [facility] Work Phone: Start: 01-12-2024 End: 01-12-2024 Patient encounter procedure MANAGER SPORTSSriram Bhat Giselaacher Work Phone: [facility] Start: 01-12-2024 End: 01-12-2024 ambulatory MANAGER SPORTSSriram Bhat Giselaacher Work Phone: [facility] Work Phone: Start: 01-07-2024 Non-patient / Non-visit MANAGER SPORTS Leonel hardin Barbararbacher Work Phone: [facility] Work Phone: Start: 01-07-2024 End: 01-07-2024 Patient encounter procedure MANAGER SPORTSSriram Bhat Giselaacher Work Phone: [facility] Work Phone: Start: 01-07-2024 Registered Recurring MANAGER SPORTS Sally jack Alexa Work Phone: [place] [facility] Work Phone: Start: 01-07-2024 End: 01-07-2024 Patient encounter procedure MANAGER SPORTSSriram Bhat Beverleyr Work Phone: [facility] Work Phone: Start: 01-07-2024 End: 01-07-2024 Patient encounter procedure MANAGER SPORTSSriram Bhat Giselaacher Work Phone: [facility] Start: 01-07-2024 End: 01-07-2024 ambulatory MANAGER SPORTSSriram Bhat Giselaacher Work Phone: [facility] Work Phone: Start: 01-06-2024 Non-patient / Non-visit MANAGER SPORTS Leonel hardin Barbararbacher Work Phone: [facility] Work Phone: Start: 01-05-2024 Non-patient / Non-visit MANAGER SPORTSSriram hardin Barbarajohnnyr Work Phone: [facility] Work Phone: Start: 01-01-2024 Registered Recurring MANAGER SPORTS Sally lawrencebreanna Jimenezjohnnyr [facility] Start: 12-31-2023 Non-patient / Non-visit MANAGER SPORTS Leonel evansmelania Barbarajohnnyr Work Phone: [facility] Work Phone: Start: 12-30-2023 Non-patient / Non-visit MANAGER SPORTSSriram kruegermelania Barbarakorinaacher Work Phone: [facility] Work Phone: Start: 12-23-2023 End: 12-23-2023 Patient encounter procedure MARY LOU Bishopnifer Giselalavonr Work Phone: [facility] Work Phone: Start: 12-23-2023 End: 12-23-2023 ambulatory ERICA GAINES Not Available Start: 12-22-2023 End: 12-22-2023 Patient encounter procedure MANAGER SPORTS Perlita Giselaatiya Work Phone: [facility] Work Phone: Start: 12-18-2023 Non-patient / Non-visit MANAGER SPORTSSriram kruegermelania Barbarajohnnyr Work Phone: [facility] Work Phone: Start: 12-17-2023 End: 12-17-2023 Patient encounter procedure MANAGER SPORTS Perlita Barbaraamanuel Work Phone: [facility] Work Phone: Start: 12-15-2023 End: 12-15-2023 ambulatory JASWANT ZAIDI Not Available Start: 12-08-2023 End: 12-08-2023 Patient encounter procedure MANAGER SPORTSSriram Liu Work Phone: [facility] Work Phone: Start: 12-08-2023 End: 12-08-2023 ambulatory MARY LOU Bishopnifer Alexa Work Phone: [facility] Work Phone: Start: 12-05-2023 End: 12-05-2023 ambulatory MARY LOU Liu Work Phone: [facility] Work Phone: Start: 12-05-2023 End: 12-05-2023 Departed Referred MARY LOU Liu Work Phone: [facility] [place] Work Phone: Start: 12-03-2023 End: 12-03-2023 ambulatory JASWANT ZAIDI Not Available Start: 12-02-2023 End: 12-02-2023 Patient encounter procedure MARY LOU Liu Work Phone: [facility]Electrodiagnostics Work Phone: Start: 12-02-2023 End: 12-02-2023 ambulatory MARY LOU Desaifer Alexa Work Phone: [facility] Work Phone: Start: 12-02-2023 Encounter for other preprocedural examination Jaswant Ziadi The Replaced By [facility] Start: 12-02-2023 End: 12-02-2023 ambulatory JASWANT ZAIDI Not Available Start: 11-28-2023 Non-patient / Non-visit MARY LOU Liu Work Phone: Replaced By [facility] Gastroenterology Work Phone: Start: 11-28-2023 End: 11-28-2023 Admission to same day surgery center MARY LOU Liu Work Phone: [facility]Digestive Health Work Phone: Start: 11-28-2023 End: 11-28-2023 ambulatory MANAGER SPORTS Perlita Liu Work Phone: [facility] Work Phone: Start: 11-11-2023 End: 11-11-2023 ambulatory [facility] Work Phone: Start: 11-11-2023 End: 11-11-2023 Patient encounter procedure Replaced By [facility] Work Phone: Start: 08-27-2023 End: 08-27-2023 Patient encounter procedure Replaced By [facility] Work Phone: Start: 08-22-2023 End: 08-22-2023 Patient encounter procedure Replaced By [facility] G[facility] Work Phone: Start: 08-01-2023 Clinisync Result Encounter Shaikh Joseph ROE Work Phone: [facility] Unsolicited Start: 08-01-2023 Clinisync Result Encounter Shaikh Joseph ROE Work Phone: [facility] Unsolicited Start: 06-24-2023 End: 06-24-2023 ambulatory SHAIKH JOSEPH Not Available Procedures Date Procedure Procedure Detail Performing Clinician Start: 02-03-2024 Esophagogastroduodenoscopy MANAGER SPORTSSriram Liu Work Phone: Start: 01-23-2024 Plain chest X-ray MANAGER SPORTSSriram Liu Work Phone: Start: 12-08-2023 Positron emission tomography with computed tomography MANAGER SPORTSSriram Liu Work Phone: Start: 11-28-2023 Esophagogastroduodenoscopy MARY LOU Liu Work Phone: Start: 08-01-2023 [facility] Shaikh Joseph ROE Work Phone: Plan of Treatment Date Care Activity Detail Author Start: 12-21-2024 End: 12-21-2024 Patient encounter procedure 12/21/2024 9:40 AM EDT Office Visit [facility] [address] [place] [phone] Erica Gaines, SUZIE [address] [place], [place] [facility] [address] Start: 05-11-2024 End: 05-11-2024 Patient encounter procedure 05/11/2024 10:30 AM EST Office Visit [facility] [address] [place] [phone] Jaswant Zaidi, DO [address] [place] [address] [facility] Start: 03-30-2024 End: 03-30-2024 Patient encounter procedure 03/30/2024 10:15 AM EDT Office Visit [facility] [address] [place] [address] Jaswant Zaidi, DO [address] [place] [address] Arrived [facility] Comment on above: Arrived Start: 02-22-2024 Influenza vaccination Influenza Vacc ine (#1) [facility] Start: 02-19-2024 [facility] Start: 02-17-2024 [facility] Start: 02-10-2024 [facility] Start: 02-05-2024 [facility] Start: 02-03-2024 End: 02-03-2024 [facility] Start: 01-29-2024 [facility] Start: 01-22-2024 [facility] Start: 01-15-2024 [facility] Start: 01-08-2024 [facility] Start: 01-01-2024 [facility] Start: 01-01-2024 [facility] Start: 12-22-[address] [facility] Work Phone: Start: 12-17-[address] [facility] Work Phone: Start: 11-28-[address] [facility] Work Phone: Start: 11-28-2023 [facility] Start: 11-11-2023 Patient referral [facility] Work Phone: Start: 08-25-2023 End: 08-25-2023 Patient encounter procedure 08/25/2023 9:30 AM EST Office Visit [facility] [address] [place] [phone] Shaikh Ruiz MD [address] [place] [id number] [facility] Start: 2017 Pneumococcal Vaccine : 65+ Years (1 of 1 - PCV) Pneumococcal Vaccine: 65+ Years (1 of 1 - PCV) [facility] Start: 1958 Pneumococcal Vaccine : 65+ Years (1 - PCV) Pneumococcal Vaccine: 65+ Years (1 - PCV) [facility] Start: 1952 Medicare Annual Well ness (AWV) Medicare Annual Wellness (AWV) [facility] Start: 1952 Screening for malign ant neoplasm of colon [facility] Comprehensive metabo lic 1999 panel - Serum or Plasma [facility] Comprehensive metabo lic 1999 panel - Serum or Plasma [facility] Comprehensive metabo lic 1999 panel - Serum or Plasma [facility] Comprehensive metabo lic 1999 panel - Serum or Plasma [facility] Comprehensive metabo lic 1999 panel - Serum or Plasma [facility] Computed tomography for radiotherapy planning [facility] Patient Education [facility] Work Phone: Patient referral [facility] Work Phone: [facility] Immunizations Immunization Date Immunization Notes Care Provider Fa juanjoty 04-15-2023 COVID-19 (PFIZER) 12Y and older [facility] 04-15-2023 Fluzone QIV High-Dos e 65YR+ [facility] 04-15-2023 influenza virus vaccine, unspecified formulation Jaswant Willtino DO Work Phone: [facility] Payers Date Payer Category Payer Self-pay 2023 Medicare AETNA MEDICARE A DVANTAGE AETNA MEDICARE REPLACEMENT [id number] 2023-Present [address] [place] [address] [id number] 2023 Private Health Insurance [id number] 2022 Unknown [employer] D [employer] [id number] 2022-Present [address] [place] [address] [id number] 2022 Unknown [id number] 1950 Unknown [id number] 2.16.840.1.472267.3.579.2. 9 1952 Unknown [id number] 2.16.840.1.962368.3.579.2. 1258 1952 Unknown [id number] 2.16.840.1.897097.3.579.2. 9 1952 Unknown [id number] 2.16.840.1.869401.3.579.2. 9 1952 Unknown [id number] 2.16.840.1.423653.3.579.2. 1259 1952 Unknown [id number] 2.16.840.1.540909.3.579.2. 1259 1952 Unknown [id number] 2.16.840.1.746563.3.579.2. 1258 1952 Unknown [id number] 2.16.840.1.102438.3.579.2. 1258 1952 Unknown [id number] 2.16.840.1.961856.3.579.2. 125 1952 Unknown [id number] 2.16.840.1.622836.3.579.2. 1258 1952 Unknown [id number] 2.16.840.1.555440.3.579.2. 1259 Unknown [id number] 2.16.840.1.321423.3.579.2. 531 Unknown [id number] 2.16.840.1.910971.3.579.2. 531 Unknown [id number] 2.16.840.1.257832.3.579.2. 531 Unknown [id number] 2.16.840.1.144493.3.579.2. 531 Unknown [id number] 2.16.840.1.725499.3.579.2. 531 Unknown [id number] 2.16.840.1.007997.3.579.2. 531 Unknown [id number] 2.16.840.1.948501.3.579.2. 531 Unknown [id number] 2.16.840.1.308090.3.579.2. 531 Unknown [id number] 2.16.840.1.949581.3.579.2. 531 Unknown [id number] 2.16.840.1.537742.3.579.2. 531 Unknown [id number] 2.16.840.1.185550.3.579.2. 531 Unknown [id number] 2.16.840.1.913356.3.579.2. 531 Unknown [id number] 2.16.840.1.207953.3.579.2. 531 Unknown [id number] 2.16.840.1.213520.3.579.2. 531 Unknown [id number] 2.16840.1.843835.3.579.2. 531 Unknown [id number] 2.16840.1.071409.3.579.2. 531 Unknown [id number] 2.16840.1.642738.3.579.2. 531 Social History Date Type Detail Facility Start: 06-24-2023 End: 12-02-2023 Tobacco smoking status NMIS Ex-smoker [facility] End: 06-23-2019 History of tobacco use Current smoker [facility] End: 06-23-2019 History of tobacco use Cigarette Smoker [facility] Start: 06-24-2023 End: 12-02-2023 Tobacco use and exposure Smokeless tobacco non-user [facility] Start: 06-24-2023 End: 03-30-2024 Alcohol intake Current drinker of alcohol (finding) [facility] Start: 06-24-2023 End: 03-30-2024 History of Social function [facility] Start: 06-24-2023 End: 03-30-2024 Tobacco use panel [facility] Start: 06-24-2023 Alcohol Comment [facility]CCASSIONAL [facility] Start: 1950 Sex Assigned At Not on file [facility] Start: 1950 Sex Assigned At Male [facility] How often to you hav e a drink containing alcohol? 4 or more times a week [facility] How many standard drinks containing alcohol do you have on a typical day? 5 or 6 [facility] How often do you hav e 6 or more drinks on 1 occasion? Daily or almost daily [facility] Start: 12-20-2023 Alcohol Comment Caffeine: 1-2 cups per day [facility] Goals Date Patient Goal Desired Activity /State Clinical Notes 11-28-2023 to 03-30-2024 Jaswant Zaidi DO - 03/30/2024 10:15 AM EDT Note Date & Type Note Facility 03-30-2024 History of Present illness Narrative Formatting of this note might be differe nt from the original. Subjective Patient ID: HPI Patient presents today for follow-up. 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 Starting to eat, pretty much PEG tube dependent at this point. Review of Systems ROS The specialty specific review of systems is noncontributory except for that recorded in the intake questionnaire and /or described in the history of present illness. Objective ENT Physical Exam Physical Exam Constitutional: Appearance: Normal appearance. HENT: Head: Atraumatic. Ears: External ear shows no abnormality Bilateral ear canals are clear Tympanic membranes intact, no evidence of middle ear fluid or other pathology. Nose: External nose appears to be normal Nares patent. Septal deviation to the right No evidence of polyp, mass or pus bilaterally. Oral Cavity: No evidence of trismus Lips appear normal Dental edentulous Tongue of normal size and configuration, floor of mouth mucosa clear. Buccal mucosa shows no evidence of ulceration, mass or other abnormality Hard palate soft palate mucosa intact with no evidence of mass, ulceration or other abnormality Uvula of normal size and configuration Oropharynx: Tonsils Posterior pharyngeal wall Neck: No evidence of palpable abnormality Thyroid without evidence of thyromegaly or mass. No cervical lymphadenopathy present. Cardiovascular: Rate and Rhythm: Normal rate and regular rhythm. . Skin: General: Skin is warm and dry. Neurological: General: No focal deficit present. Mental Status: alert and oriented to person, place, and time. FIBEROPTIC NASOPHARYNGOLARYNGOSCOPY A diagnostic flexible fiberoptic laryngoscopy was performed. The flexible fiberoptic laryngoscope was placed into the nose and advanced to the level of the tip of the epiglottis. Examination of the larynx including both surfaces of the epiglottis false and true vocal folds, arytenoids and surrounding mucosal surfaces show no evidence of lesion, ulceration or mass. Normal bilateral true vocal fold motion is present. Bilateral piriform sinuses and base of tongue appear without lesion . Moderate edema is present but no obvious tumor noted throughout the larynx or hypopharynx. No evidence of aspiration but there is pooling of secretion. Assessment/Plan Valente was seen today for cancer. Diagnoses and all orders for this visit: Malignant neoplasm of larynx (CMS/HCC) (Primary) Comments: There is no clinical evidence of new or recurrent disease, I will see him back in 6 weeks History of head and neck radiation Comments: See above documented in this encounter [facility] 03-29-2024 Progress note Note Date/Time March 29, 2024 1:23pm [facility] [address] [place] [address] Palliative Medicine Encounter Patient: Valente Lucio MR#: [id number] : 1950 Acct:[id number] Age/Sex: 73 / M Copies to: Perlita Liu APRN, COMPLETIONS MANAGER Deirdre Law APRN~ HPI Date of Visit Date of Visit: 03/29/2024 Chief Complaint: Valente is here for follow up at time of oncology follow up. He has decreased his Oxycodone use to 10 mg/ml every 4 hours HPI: Valente is seen and examined; interim period and pertinent symptoms reviewed below and detailed in ESAS: Recovering from chemoradiation, still has very bothersome cough mostly at night - cough can be very harsh, still productive, sometimes is blood tinged - throat pain can be pretty bad after a coughing episode; throat pain during the day is not too bad; has decreased oxycodone dose to 10 mg TID with feedings and hehas the availability of oxycodone during the night. Valente would like to discontinue oxycodone when able. Continues tube feeding TID, weight has increased to 185#, carefully sips water during the day but no oral feeding Continues Miralax daily and has good elimination Intake Allergies baclofen Allergy (Verified 03/29/24 07:38) muscle stiffness cyclobenzaprine [From Flexeril] Allergy (Verified 03/29/24 07:38) muscle stiffness gabapentin Allergy (Verified 03/29/24 07:38) muscle stiffness onabotulinumtoxinA [From Botox] Allergy (Verified 03/29/24 07:38) muscle stiffness tizanidine Allergy (Verified 03/29/24 07:38) muscle stiffness Home Medications Medication Instructions Recorded Confirmed pregabalin 150 mg capsule (Lyrica) 150 mg PO BID 30 days #90 caps 11/24/23 03/04/24 silver sulfadiazine 1 % topical 1 applic topical BID #50 grams 01/28/24 03/04/24 cream (Silvadene) ropinirole 1 mg tablet 1 mg PO .COMPLEX 90 days #360 tabs 03/15/24 oxycodone 5 mg/5 mL oral solution 10 mg (10 mL) feeding tube QID PRN 03/29/24 pain 10 days #500 mL Is patient having pain?: Yes [facility] Medical History Oropharyngeal mass High cholesterol BPH (benign prostatic hyperplasia) Squamous cell carcinoma of hypopharynx Hypertension Dysphagia Restless leg Stroke Oropharyngeal dysphagia Surgical History History of surgery on lower extremity left thigh hematoma History of carotid endarterectomy Family History Sister Breast cancer Social History Smoking Status: Former smoker Tobacco Type: cigarettes Substance Use Type: Marijuana Substance Abuse Comment: Has card-not with pt; has not used for weeks ; OR aware [place] Symptom Assessment Scale Pain: throat pain improved during the day d worse at night with cough Nausea/Vomiting: denies Anorexia: using peg tube for feedings with no issues 185# today / drinking water by mouth, no food Dyspnea: cough at night/ denies SOB Constipation/Diarrhea: using Miralax daily with good control Drowsiness: denies Fatigue: energy improving Insomnia: stable Depression/Mood: stable Anxiety: stable Exam Exam General - A&O, looks so much better!, accompanied by HEENT - EOM intact, oral mucosa pink/moist Lungs - normal respiratory effort, no cough during encounter Abdomen - soft, non-distended Extremities - ambulatory with cane, no edema Psychiatric - pleasant, cooperative, improved mood/affect Assessment & Plan Assessment & Plan (1) Cancer associated pain: Plan: Valente is recovering nicely from chemoradiation and reports decreasing pain severity in his throat which is aggravated by harsh cough during the night. has already reduced dosage of oxycodone to 10 mg and administers with feeding and has med available in a syringe for Valente to use during the night. Discussed plan for tapering by reducing dose to 5 mg with feedings, then discontinuing daytime use from 3/day to 2/day, 1/day then stop and keeping medication available for use during the night and PRN daytime. Delia & Valente agree to this plan. Continue & refill Oxycodone 5 mg/5 ml using 5-10 ml QID PRN with planned taper. OARRS reviewed, consistent with Rx. MME 75 mg/day F/U as needed for symptom management (2) Squamous cell carcinoma of hypopharynx: Plan: s/p concurrent chemoradiation Clinically improving per Dr. Mirza's exam, returns to clinic in May afterrestaging scans Attestation: The above note written by Hilda Dc MA acting as human recorder, note dictated by Deirdre Law APRN, FIELD CANE SCALE CLERK-C Dictated By: Deirdre Law APRN DD/ [id number] Signed By: <Electronically signed by MARY LOU Law> 03/29/24 1403 [facility] Work Phone: 1(355) 964-547908-19-2024 Progress note Author Deirdre Law [facility] February 09, 2024 2:03pm Note Date/Time February 09, 2024 1: 43pm [facility] [address] [place] [address] Palliative Medicine Encounter Patient: Valente Lucio MR#: [id number] : 1950 Acct:[id number] Age/Sex: 73 / M Copies to: Perlita Liu APRN, COMPLETIONS MANAGER Deirdre Law APRN~ HPI Date of Visit Date of Visit: 02/09/2024 Chief Complaint: Valente is here for one week follow up at time of oncology follow up. He is using peg tube for nutrition and medication. HPI: Valente is seen and examined; interim period and pertinent symptoms reviewed below and detailed in ESAS: Still has considerable pain in the throat and exterior skin - thinks meds are adequately controlling his pain started Z-nick yesterday and skin looks better today, using Domeboro soaks 4-5x/day is administering tube feeding - 5 feedings/day and meds are administered per PEG Coughing up very thick, sticky secretions - copious amounts per Intake Allergies baclofen Allergy (Verified 02/09/24 13:35) muscle stiffness cyclobenzaprine [From Flexeril] Allergy (Verified 02/09/24 13:35) muscle stiffness gabapentin Allergy (Verified 02/09/24 13:35) muscle stiffness onabotulinumtoxinA [From Botox] Allergy (Verified 02/09/24 13:35) muscle stiffness tizanidine Allergy (Verified 02/09/24 13:35) muscle stiffness Home Medications Medication Instructions Recorded Confirmed aspirin 81 mg tablet,delayed 81 mg PO DAILY 08/22/23 02/09/24 release ferrous sulfate 325 mg (65 mg 325 mg PO DAILY 08/22/23 02/09/24 iron) tablet losartan 50 mg tablet 50 mg PO DAILY 90 days #90 tabs 09/16/23 02/09/24 rosuvastatin 20 mg tablet (Crestor) 20 mg PO DAILY 90 days #90 tabs 09/16/23 02/09/24 pregabalin 150 mg capsule (Lyrica) 150 mg PO BID 30 days #90 caps 11/24/23 02/09/24 ropinirole 1 mg tablet 1 mg PO .COMPLEX 90 days #360 tabs 11/24/23 02/09/24 citalopram 20 mg tablet 20 mg PO DAILY 90 days #90 tabs 12/08/23 02/09/24 ondansetron 8 mg disintegrating 8 mg PO Q8HR PRN nausea and 12/22/23 02/09/24 tablet vomiting #30 tabs Magic Mouthwash w/Lidocaine 240 mL 5 ml PO QID PRN mucositis #240 mL 01/07/24 02/09/24 Bottle 240 mL bottle scopolamine base 1 mg over 3 days 1 patch transdermal Q3D EXCESSIVE 01/14/24 02/09/24 transdermal patch SECRETIONS #10 ea mometasone 0.1 % topical cream 1 applic topical DAILY #45 grams 01/19/24 02/09/24 fluconazole 100 mg tablet 100 mg PO DAILY #15 tabs 01/21/24 02/09/24 fentanyl 12 mcg/hr transdermal 1 patch transdermal Q72H 15 days 01/22/24 02/09/24 patch #5 ea silver sulfadiazine 1 % topical 1 applic topical BID #50 grams 01/28/24 02/09/24 cream (Silvadene) oxycodone 5 mg/5 mL oral solution 10 mg (10 mL) feeding tube Q4HR 02/02/24 02/09/24 PRN pain 10 days #500 mL Is patient having pain?: Yes [facility] Medical History Oropharyngeal mass High cholesterol BPH (benign prostatic hyperplasia) Squamous cell carcinoma of hypopharynx Hypertension Dysphagia Restless leg Stroke Oropharyngeal dysphagia Surgical History History of surgery on lower extremity left thigh hematoma History of carotid endarterectomy Family History Sister Breast cancer Social History Smoking Status: Former smoker Tobacco Type: cigarettes Substance Use Type: Marijuana Substance Abuse Comment: Has card-not with pt; has not used for weeks ; OR aware [place] Symptom Assessment Scale Pain: neck and throat pain still fairly severe using Fentanyl patch and Oxycodone 10 ml every 4- 6hours Nausea/Vomiting: denies Anorexia: using peg tube now for nutrition 5 x daily, trying to get 6 in Dyspnea: Constipation/Diarrhea: some diarrhea, soft, formed stools for the most part Drowsiness: moderate/ sleeping a lot of the day Fatigue: severe fatigue Insomnia: thick, excessive secretions and pain keep him from sleeping better Depression/Mood: Anxiety: Assessment & Plan Assessment & Plan (1) Increased oropharyngeal secretions: Plan: Per 's report, pharyngeal secretions are copious and very thick, sticky Encouraged to increase water intake via peg tube Ok to start Liquid Mucinex via peg tube every 6 hours (2) Cancer associated pain: Plan: Ongoing pain in the throat and external skin from radiation-induced skin breakdown; using oxycodone 40 mg/day and fentanyl 12 mcg; Valente says pain is tolerablebut that he feels out of it a lot of the time. Will hold fentanyl and reassess pain and confusion; mildly drowsy and awakens easily per Stop Fentanyl patch and evaluate fogginess and pain control on Oxycodone alone Continue Oxycodone 10 ml every 4-6 hours per PEG F/U here one week at time of radiation (3) Squamous cell carcinoma of hypopharynx: Plan: Treatment held for the past week; had PEG placed and is being evaluated by oncology today Attestation: The above note written by Hilda Dc MA acting as human recorder, note dictated by Deirdre Law APRN, FIELD CANE SCALE CLERK-C Dictated By: Deirdre Law APRN DD/ [id number] Signed By: <Electronically signed by MARY LOU Law> 02/09/24 1403 [facility] Work Phone: 1(885) 717-373308-05-2024 Progress note Author Deirdre Law [facility] January 26, 2024 2:14pm Note Date/Time January 26, 2024 1:3 6pm [facility] [address] [place] [address] Palliative Medicine Encounter Patient: Valente Lucio MR#: [id number] : 1950 Acct:[id number] Age/Sex: 73 / M Copies to: Perlita Liu APRN, COMPLETIONS MANAGER Deirdre Law APRN~ HPI Date of Visit Date of Visit: 01/26/2024 Chief Complaint: Valente is here for follow up at time of radiation. He was to continue Fentanyl patch 12.5 mcg and Oxycodone 5mg/5ml PRN at last office visit. He also complained of cough and chest xray was ordered and reviewed by provider HPI: Valente is seen prior to daily RT, accompanied by his . Interim period and pertinent symptoms reviewed below and detailed in ESAS: CXR obtained Friday was negative for acute process - ordered due to concern about potential aspiration as his cough/choking was severe when swallowing Valente says that when he remembers to tuck his chin before swallowing he does not cough and choke Unable to eat any soft or solid foods, is able to swallow liquids including water and liquid supplements Secretions accumulate in his throat, especially when he has had milky supplement, has purchased a variety of liquid supplements Tolerating fentanyl 12 mcg patch and is taking oxycodone 5 mg/5 ml probably 4x/day - oxycodone reduces pain severity some but doesn't last long Denies N/V and constipation Ongoing fatigue and weakness Intake Allergies baclofen Allergy (Verified 01/26/24 13:33) muscle stiffness cyclobenzaprine [From Flexeril] Allergy (Verified 01/26/24 13:33) muscle stiffness gabapentin Allergy (Verified 01/26/24 13:33) muscle stiffness onabotulinumtoxinA [From Botox] Allergy (Verified 01/26/24 13:33) muscle stiffness tizanidine Allergy (Verified 01/26/24 13:33) muscle stiffness Home Medications Medication Instructions Recorded Confirmed aspirin 81 mg tablet,delayed 81 mg PO DAILY 08/22/23 01/26/24 release ferrous sulfate 325 mg (65 mg 325 mg PO DAILY 08/22/23 01/26/24 iron) tablet losartan 50 mg tablet 50 mg PO DAILY 90 days #90 tabs 09/16/23 01/26/24 rosuvastatin 20 mg tablet (Crestor) 20 mg PO DAILY 90 days #90 tabs 09/16/23 01/26/24 pregabalin 150 mg capsule (Lyrica) 150 mg PO BID 30 days #90 caps 11/24/23 01/26/24 ropinirole 1 mg tablet 1 mg PO .COMPLEX 90 days #360 tabs 11/24/23 01/26/24 citalopram 20 mg tablet 20 mg PO DAILY 90 days #90 tabs 12/08/23 01/26/24 ondansetron 8 mg disintegrating 8 mg PO Q8HR PRN nausea and 12/22/23 01/26/24 tablet vomiting #30 tabs Magic Mouthwash w/Lidocaine 240 mL 5 ml PO QID PRN mucositis #240 mL 01/07/24 01/26/24 Bottle 240 mL bottle azithromycin 250 mg tablet 250 mg PO QDAY 5 days #6 tabs 01/07/24 01/26/24 scopolamine base 1 mg over 3 days 1 patch transdermal Q3D EXCESSIVE 01/14/24 01/26/24 transdermal patch SECRETIONS #10 ea mometasone 0.1 % topical cream 1 applic topical DAILY #45 grams 01/19/24 01/26/24 oxycodone 5 mg/5 mL oral solution 5 mg (5 mL) PO Q4-6H PRN pain 7 01/19/24 01/26/24 days #250 mL fluconazole 100 mg tablet 100 mg PO DAILY #15 tabs 01/21/24 01/26/24 fentanyl 12 mcg/hr transdermal 1 patch transdermal Q72H 15 days 01/22/24 01/26/24 patch #5 ea Is patient having pain?: Yes PMFSH Medical History Squamous cell carcinoma of hypopharynx Restless leg Dysphagia Hypertension Stroke Oropharyngeal dysphagia Surgical History History of surgery on lower extremity left History of carotid endarterectomy Family History Sister Breast cancer Social History Smoking Status: Former smoker Tobacco Type: cigarettes Substance Use Type: Alcohol and Marijuana Substance Abuse Comment: 9 Beers daily [place] Symptom Assessment Scale Pain: severe, constant pain with swallowing and neck tenderness ( skin) Nausea/Vomiting: denies Anorexia: no food intake at all/ using nutritional supplements daily 187# Dyspnea: denies Constipation/Diarrhea: stable Drowsiness: sleeping more Fatigue: moderate / low energy Insomnia: stable Depression/Mood: stable Anxiety: stable Exam Exam General - A&O, winces with swallow, accompanied by HEENT - EOM intact, oral mucosa pink/moist, tongue coated white Lungs - normal respiratory effort Abdomen - soft, non-distended Extremities - ambulates with cane, leg brace no edema Psychiatric - pleasant, cooperative, normal mood/affect Assessment & Plan Assessment & Plan (1) Cancer associated pain: Plan: Valente reports increasing pain in his throat, exacerbated by swallowing as well aspain/tenderness to the skin of the treatment area (sore, stinging). Unable to swallow soft moist food due to pain/dysphagia but he is able to swallow water, liquid supplements, broth. reports that Valente moans while sleeping Continue Fentanyl patch 12.5 mcg without change for now - will likely need titration of dose Increase dose of oxycodone 5 mg/5 ml to 10 mg every 4-6 hours ( administers medication and she will adjust to 7-8 mg if 10 mg seems too much) F/U one week at time of radiation (2) Cough: Plan: CXR obtained Friday afternoon resulted negative for acute process Valente says that he does not cough/choke when he swallows liquids with his chin tucked, follows weekly with ST (3) Squamous cell carcinoma of hypopharynx: Plan: Continues concurrent chemoradiation, follow-up with Dr. Naranjo this afternoon Oral intake decreasing to liquids only, providing a variety of liquid supplements and broth, following with photographic process worker weekly also; encouraged to get in at least 4 supplement drinks/day Attestation: The above note written by Hilda Dc MA acting as human recorder, note dictated by Deirdre Law APRN, FIELD CANE SCALE CLERK-C Dictated By: Deirdre Law APRN DD/ [id number] Signed By: <Electronically signed by MARY LOU Law> 01/26/24 1414 [facility] Work Phone: 1(319) 899-578408-02-2024 Progress note Author Deirdre Law [facility] January 23, 2024 1:55pm Note Date/Time January 23, 2024 1:0 8pm [facility] [address] [place] [address] Palliative Medicine Encounter Patient: Valente Lucio MR#: [id number] : 1950 Acct:[id number] Age/Sex: 73 / M Copies to: Perlita Liu APRN, COMPLETIONS MANAGER Deirdre Law APRN~ HPI Date of Visit Date of Visit: 01/23/2024 Chief Complaint: Valente is here for follow up at time of radiation. He was started on Fentanyl patch and to continue Oxycodone. He admits to low intake of food and occasionally coughing / vomiting after HPI: Valente is seen for reassessment of pain and symptoms prior to daily radiation. His updated prior to his encounter stating that Valente sometimes coughs really hard and twice he has coughed so hard that he vomited the supplement he had just taken in. Valente is tolerating the fentanyl 12 mcg patch started yesterday and using oxycodone liquid several times/day with fairly good relief, though he winces andstruggles swallowing water during the encounter Valente tells us that he doesn't cough every time he swallows liquid but sometimes he does He is trying to take in fluids and 2 Boost drinks/day as well as trying to eat some other foods (soft, moist) but admits that intake is not that great. Increased fatigue, tends to rest more but still doing a few things, lacks the ambition he used to Intake Allergies baclofen Allergy (Verified 01/23/24 13:06) muscle stiffness cyclobenzaprine [From Flexeril] Allergy (Verified 01/23/24 13:06) muscle stiffness gabapentin Allergy (Verified 01/23/24 13:06) muscle stiffness onabotulinumtoxinA [From Botox] Allergy (Verified 01/23/24 13:06) muscle stiffness tizanidine Allergy (Verified 01/23/24 13:06) muscle stiffness Home Medications Medication Instructions Recorded Confirmed aspirin 81 mg tablet,delayed 81 mg PO DAILY 08/22/23 01/07/24 release ferrous sulfate 325 mg (65 mg 325 mg PO DAILY 08/22/23 01/07/24 iron) tablet losartan 50 mg tablet 50 mg PO DAILY 90 days #90 tabs 09/16/23 01/07/24 rosuvastatin 20 mg tablet (Crestor) 20 mg PO DAILY 90 days #90 tabs 09/16/23 01/07/24 pregabalin 150 mg capsule (Lyrica) 150 mg PO BID 30 days #90 caps 11/24/23 01/07/24 ropinirole 1 mg tablet 1 mg PO .COMPLEX 90 days #360 tabs 11/24/23 01/07/24 citalopram 20 mg tablet 20 mg PO DAILY 90 days #90 tabs 12/08/23 01/07/24 ondansetron 8 mg disintegrating 8 mg PO Q8HR PRN nausea and 12/22/23 01/07/24 tablet vomiting #30 tabs Magic Mouthwash w/Lidocaine 240 mL 5 ml PO QID PRN mucositis #240 mL 01/07/24 01/07/24 Bottle 240 mL bottle azithromycin 250 mg tablet 250 mg PO QDAY 5 days #6 tabs 01/07/24 01/07/24 scopolamine base 1 mg over 3 days 1 patch transdermal Q3D EXCESSIVE 01/14/24 transdermal patch SECRETIONS #10 ea mometasone 0.1 % topical cream 1 applic topical DAILY #45 grams 01/19/24 oxycodone 5 mg/5 mL oral solution 5 mg (5 mL) PO Q4-6H PRN pain 7 01/19/24 days #250 mL fluconazole 100 mg tablet 100 mg PO DAILY #15 tabs 01/21/24 fentanyl 12 mcg/hr transdermal 1 patch transdermal Q72H 15 days 01/22/24 patch #5 ea Is patient having pain?: Yes PMFSH Medical History Squamous cell carcinoma of hypopharynx Restless leg Dysphagia Hypertension Stroke Oropharyngeal dysphagia Surgical History History of surgery on lower extremity left History of carotid endarterectomy Family History Sister Breast cancer Social History Smoking Status: Former smoker Tobacco Type: cigarettes Substance Use Type: Alcohol and Marijuana Substance Abuse Comment: 9 Beers daily [place] Symptom Assessment Scale Pain: severe throat pain/ worse with swallowing /difficult getting in nutrition tenderness on neck and chest area from radiation burn Nausea/Vomiting: denies nausea, intermittent vomiting after coughing spells Anorexia: fair appetite, struggling to get food in due to severe throat pain Dyspnea: cough present, sometimes at time of swallowing/ occasionally vomits after coughing so much Constipation/Diarrhea: stable Drowsiness: denies Fatigue: resting most of the day/ low ambition Insomnia: stable Depression/Mood: stable Anxiety: stable Exam Exam General - A&O, unaccompanied ( waiting in the car) HEENT - EOM intact, oral mucosa pink/moist, pain with swallowing Lungs - normal respiratory effort, lung sounds assessed by Zak Coleman RN, clear in left lobes, RLL with crackles Abdomen - soft, non-distended Extremities - ambulates with cane, leg brace no edema Psychiatric - pleasant, cooperative, normal mood/affect Assessment & Plan Assessment & Plan (1) Cancer associated pain: Plan: Tolerating initiation of fentanyl transdermal, minimal pain when not swallowing,considerable pain when swallowing. Using Magic Mouthwash as directed and oxycodone 3-4x/day Continue Fentanyl 12 mcg patch without change Continue Oxycodone 5mg/5ml PRN without change F/U here 01/26/24 at time of radiation (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, intake waning and weight decreasing reports and Valente confirms a few episodes of very harsh prolonged cough whenswallowing and on 2 episodes coughing until he vomited (supplement drink he had just finished) Discussed with Zak Coleman RN and A. Tulio TRIMMER HELPER - Oncology to order chest x- rayand modified barium swallow, Valente has med onc f/u on Friday with Dr. Naranjo Attestation: The above note written by Hilda Dc MA acting as human recorder, note dictated by Deirdre Law APRN, FIELD CANE SCALE CLERK-C Dictated By: Deirdre Law APRN DD/ [id number] Signed By: <Electronically signed by MARY LOU Law> 01/23/24 1355 [facility] Work Phone: 1([phone]) 124-117507-29-2024 Progress note Author Deirdre Law [facility] January 19, 2024 2:23pm Note Date/Time January 19, 2024 2:03 pm [facility] [address] [place] [address] Palliative Medicine Encounter Patient: Valente Lucio MR#: [id number] : 1950 Acct:[id number] Age/Sex: 73 / M Copies to: Perlita Liu APRN, COMPLETIONS MANAGER Deirdre Law APRN~ HPI Date of Visit Date of Visit: 01/19/2024 Chief Complaint: Valente is here for one week follow up at time of radiation. He was to continue Lyrica 150 mg BID, Magic Mouthwash, Zofran at last office visit and was given Oxycodone 5mg/5ml to have on hand for pain HPI: Valente is seen and examined after daily radiation; interim period and pertinent symptoms reviewed below and detailed in ESAS: Reports sore throat with swallowing, even liquids; using oxycodone 5 mg about twice a day, effective in reducing pain severity Denies nausea and constipation Admits to increasing oropharyngeal secretions but is able to expectorate OK Says he is following all the rules Intake Allergies baclofen Allergy (Verified 01/19/24 07:56) muscle stiffness cyclobenzaprine [From Flexeril] Allergy (Verified 01/19/24 07:56) muscle stiffness gabapentin Allergy (Verified 01/19/24 07:56) muscle stiffness onabotulinumtoxinA [From Botox] Allergy (Verified 01/19/24 07:56) muscle stiffness tizanidine Allergy (Verified 01/19/24 07:56) muscle stiffness Home Medications Medication Instructions Recorded Confirmed aspirin 81 mg tablet,delayed 81 mg PO DAILY 08/22/23 01/07/24 release ferrous sulfate 325 mg (65 mg 325 mg PO DAILY 08/22/23 01/07/24 iron) tablet losartan 50 mg tablet 50 mg PO DAILY 90 days #90 tabs 09/16/23 01/07/24 rosuvastatin 20 mg tablet (Crestor) 20 mg PO DAILY 90 days #90 tabs 09/16/23 01/07/24 pregabalin 150 mg capsule (Lyrica) 150 mg PO BID 30 days #90 caps 11/24/23 01/07/24 ropinirole 1 mg tablet 1 mg PO .COMPLEX 90 days #360 tabs 11/24/23 01/07/24 citalopram 20 mg tablet 20 mg PO DAILY 90 days #90 tabs 12/08/23 01/07/24 ondansetron 8 mg disintegrating 8 mg PO Q8HR PRN nausea and 12/22/23 01/07/24 tablet vomiting #30 tabs Magic Mouthwash w/Lidocaine 240 mL 5 ml PO QID PRN mucositis #240 mL 01/07/24 01/07/24 Bottle 240 mL bottle azithromycin 250 mg tablet 250 mg PO QDAY 5 days #6 tabs 01/07/24 01/07/24 scopolamine base 1 mg over 3 days 1 patch transdermal Q3D EXCESSIVE 01/14/24 transdermal patch SECRETIONS #10 ea mometasone 0.1 % topical cream 1 applic topical DAILY #45 grams 01/19/24 oxycodone 5 mg/5 mL oral solution 5 mg (5 mL) PO Q4-6H PRN pain 7 01/19/24 days #250 mL Is patient having pain?: Yes PMFSH Medical History Squamous cell carcinoma of hypopharynx Restless leg Dysphagia Hypertension Stroke Oropharyngeal dysphagia Surgical History History of surgery on lower extremity left History of carotid endarterectomy Family History Sister Breast cancer Social History Smoking Status: Former smoker Tobacco Type: cigarettes Substance Use Type: Alcohol and Marijuana Substance Abuse Comment: 9 Beers daily [place] Symptom Assessment Scale Pain: sore throat/ moderate to severe / still eating and drinking using Oxycodone BID and Magic Mouthwash as instructed c/o excessive secretions / tolerable Nausea/Vomiting: denies Anorexia: eating and drinking / has appetite/ dysphagia with both solids and liquids Dyspnea: denies Constipation/Diarrhea: stable Drowsiness: denies Fatigue: moderate Insomnia: stable Depression/Mood: stable Anxiety: stable Exam Exam General - A&O, accompanied by HEENT - EOM intact, oral mucosa pink/moist, clears throat intermittently Lungs - normal respiratory effort Abdomen - soft, non-distended Extremities - ambulates with cane and R leg brace, no edema Skin - erythema with drying and flaking skin in the treatment area Psychiatric - pleasant, cooperative, normal mood/affect Assessment & Plan Assessment & Plan (1) Cancer associated pain: Plan: Valente is now using oxycodone BID to help with treatment-induced throat pain, suggested use TID-QID if necessary to allow adequate intake of food/fluid and rest Continue and refill Oxycodone 5mg/5ml F/U here one week at time of radiation (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 Attestation: The above note written by Hilda Dc MA acting as human recorder, note dictated by Deirdre Law APRN, FIELD CANE SCALE CLERK-C Dictated By: Deirdre Law APRN DD/ [id number] Signed By: <Electronically signed by MARY LOU Law> 01/19/24 1423 [facility] Work Phone: [phone] 498-767806-07-2024 [facility]* Diagnosis Onset Date Resolution Status Iron deficiency anemia acute Oropharyngeal dysphagia acut e Stroke acute Depression acute Hyperlipidemia acute Hypertension acute Iron deficiency anemia acute Oropharyngeal dysphagia acut e Restless leg acute Stroke acute Urgency of micturition acute Dysphagia acute [facility] Work Phone: Evaluation note* Diagnosis Onset Date Resolution Status Dysphagia acute Frequent falls acute Stroke acute [facility] Work Phone: Evaluation note* Diagnosis Onset Date Resolution Status Dysphagia acute Frequent falls acute Stroke acute Squamous cell carcinoma of hypopharynx acute Cancer associated pain acute Encounter for palliative care acute Squamous cell carcinoma of hypopharynx acute Bronchitis acute [facility] Work Phone: evaluation note* Diagnosis Onset Date Resolution Status Dysphagia acute Frequent falls acute Stroke acute Squamous cell carcinoma of hypopharynx acute Cancer associated pain acute Encounter for palliative care acute Increased oropharyngeal secretions acute Squamous cell carcinoma of hypopharynx acute Bronchitis acute Squamous cell carcinoma of hypopharynx acute Cancer associated pain acute Squamous cell carcinoma of hypopharynx acute [facility] Work Phone: evaluation note* Diagnosis Onset Date Resolution Status Dysphagia acute Frequent falls acute Stroke acute Squamous cell carcinoma of hypopharynx acute Cancer associated pain acute Encounter for palliative care acute Increased oropharyngeal secretions acute Squamous cell carcinoma of hypopharynx acute Bronchitis acute Squamous cell carcinoma of hypopharynx acute Cancer associated pain acute Squamous cell carcinoma of hypopharynx acute Cancer associated pain acute Squamous cell carcinoma of hypopharynx acute [facility] Work Phone: evaluation note* Diagnosis Onset Date Resolution Status Dysphagia acute Frequent falls acute Stroke acute Squamous cell carcinoma of hypopharynx acute Cancer associated pain acute Encounter for palliative care acute Increased oropharyngeal secretions acute Squamous cell carcinoma of hypopharynx acute Bronchitis acute Squamous cell carcinoma of hypopharynx acute Cancer associated pain acute Squamous cell carcinoma of hypopharynx acute Cancer associated pain acute Squamous cell carcinoma of hypopharynx acute Cancer associated pain acute Squamous cell carcinoma of hypopharynx acute [facility] Work Phone: evaluation note* Diagnosis Onset Date Resolution Status Dysphagia acute Frequent falls acute Stroke acute Squamous cell carcinoma of hypopharynx acute Cancer associated pain acute Encounter for palliative care acute Increased oropharyngeal secretions acute Squamous cell carcinoma of hypopharynx acute Bronchitis acute Squamous cell carcinoma of hypopharynx acute Cancer associated pain acute Squamous cell carcinoma of hypopharynx acute Cancer associated pain acute Squamous cell carcinoma of hypopharynx acute Cancer associated pain acute Squamous cell carcinoma of hypopharynx acute Cancer associated pain acute Cough acute Squamous cell carcinoma of hypopharynx acute [facility] Work Phone: evaluation note* Diagnosis Onset Date Resolution Status Dysphagia acute Frequent falls acute Stroke acute Squamous cell carcinoma of hypopharynx acute Cancer associated pain acute Encounter for palliative care acute Increased oropharyngeal secretions acute Squamous cell carcinoma of hypopharynx acute Bronchitis acute Squamous cell carcinoma of hypopharynx acute Cancer associated pain acute Squamous cell carcinoma of hypopharynx acute Cancer associated pain acute Squamous cell carcinoma of hypopharynx acute Cancer associated pain acute Squamous cell carcinoma of hypopharynx acute Cancer associated pain acute Cough acute Squamous cell carcinoma of hypopharynx acute Cancer associated pain acute Constipation acute Squamous cell carcinoma of hypopharynx acute [facility] Work Phone: Evaluation note* Diagnosis Onset Date Resolution Status Squamous cell carcinoma of hypopharynx acute Cancer associated pain acute Encounter for palliative care acute Increased oropharyngeal secretions acute Squamous cell carcinoma of hypopharynx acute Bronchitis acute Squamous cell carcinoma of hypopharynx acute Cancer associated pain acute Squamous cell carcinoma of hypopharynx acute Cancer associated pain acute Squamous cell carcinoma of hypopharynx acute Cancer associated pain acute Squamous cell carcinoma of hypopharynx acute Cancer associated pain acute Cough acute Squamous cell carcinoma of hypopharynx acute Cancer associated pain acute Constipation acute Squamous cell carcinoma of hypopharynx acute Cancer associated pain acute Increased oropharyngeal secretions acute Squamous cell carcinoma of hypopharynx acute [facility] Work Phone: evaluation note* Diagnosis Onset Date Resolution Status Squamous cell carcinoma of hypopharynx acute Cancer associated pain acute Encounter for palliative care acute Increased oropharyngeal secretions acute Squamous cell carcinoma of hypopharynx acute Bronchitis acute Squamous cell carcinoma of hypopharynx acute Cancer associated pain acute Squamous cell carcinoma of hypopharynx acute Cancer associated pain acute Squamous cell carcinoma of hypopharynx acute Cancer associated pain acute Squamous cell carcinoma of hypopharynx acute Cancer associated pain acute Cough acute Squamous cell carcinoma of hypopharynx acute Cancer associated pain acute Constipation acute Squamous cell carcinoma of hypopharynx acute Cancer associated pain acute Increased oropharyngeal secretions acute Squamous cell carcinoma of hypopharynx acute Cancer associated pain acute Squamous cell carcinoma of hypopharynx acute [facility] Work Phone: evaluation note* Diagnosis Onset Date Resolution Status Squamous cell carcinoma of hypopharynx acute Cancer associated pain acute Encounter for palliative care acute Increased oropharyngeal secretions acute Squamous cell carcinoma of hypopharynx acute Bronchitis acute Squamous cell carcinoma of hypopharynx acute Cancer associated pain acute Squamous cell carcinoma of hypopharynx acute Cancer associated pain acute Squamous cell carcinoma of hypopharynx acute Cancer associated pain acute Squamous cell carcinoma of hypopharynx acute Cancer associated pain acute Cough acute Squamous cell carcinoma of hypopharynx acute Cancer associated pain acute Constipation acute Squamous cell carcinoma of hypopharynx acute Cancer associated pain acute Increased oropharyngeal secretions acute Squamous cell carcinoma of hypopharynx acute Cancer associated pain acute Squamous cell carcinoma of hypopharynx acute Cancer associated pain acute Constipation acute Squamous cell carcinoma of hypopharynx acute [facility] Work Phone: Evaluation note* Diagnosis Onset Date Resolution Status Cancer associated pain acute Encounter for palliative care acute Increased oropharyngeal secretions acute Squamous cell carcinoma of hypopharynx acute Bronchitis acute Squamous cell carcinoma of hypopharynx acute Cancer associated pain acute Squamous cell carcinoma of hypopharynx acute Cancer associated pain acute Squamous cell carcinoma of hypopharynx acute Cancer associated pain acute Squamous cell carcinoma of hypopharynx acute Cancer associated pain acute Cough acute Squamous cell carcinoma of hypopharynx acute Cancer associated pain acute Constipation acute Squamous cell carcinoma of hypopharynx acute Cancer associated pain acute Increased oropharyngeal secretions acute Squamous cell carcinoma of hypopharynx acute Cancer associated pain acute Squamous cell carcinoma of hypopharynx acute Cancer associated pain acute Constipation acute Squamous cell carcinoma of hypopharynx acute Constipation acute Depression acute Hyperlipidemia acute Hypertension acute Medicare annual wellness visit, subsequent acute Restless leg acute S/P percutaneous endoscopic gastrostomy (PEG) tube placement acute Squamous cell carcinoma of hypopharynx acute Stroke acute Urgency of micturition acute Cancer associated pain acute Squamous cell carcinoma of hypopharynx acute Squamous cell carcinoma of hypopharynx acute [facility] Work Phone: Evaluation note* Diagnosis Malignant neoplasm of larynx (CMS/HCC)- Primary Malignant neoplasm of larynx, unspecified site History of head and neck radiation documented in this encounter [facility] and physical note Author Vinicio Tamez [facility] November 28, 2023 12:15pm Note Date/Time November 28, 2023 12:15 pm [facility] [address] [place] [address] Gastroenterology H&P Signed Patient: Valente Lucio Brian MR#: [id number] : 1950 Acct:[id number] Age/Sex: 73 / M Adm Date: 4 Loc: Room: Type: [facility] Attending Dr: Vinicio Tamez MD Copies to: MD Perlita Anne APRN, CNP~ Date of Service: 11/28/2023 HISTORY & PHYSICAL: Patient's history with special attention to the cardiovascular, pulmonary systems and the current problem was reviewed with the patient immediately prior to the procedure. Present medications and doses reviewed in the EMR. Allergies and pertinent laboratory tests were also reviewedat this time in the EMR. The physical examination, as below, was then performed. Indication, assessment and HPI: 73-year-old male presents for EGD to evaluate history of iron deficiency anemia. EGD and colon have been recommended but patient declined colonoscopy. He also gets occasional dysphagia to solids. Family history of GI malignancy? No PHYSICAL EXAMINATION Mouth and Pharynx : Moist mucus membranes, normal dentition Cardiac: Regular rate, regular rhythm Pulmonary: Clear to auscultation bilaterally, no wheezing Neurological: Alert and oriented x3, no focal deficits noted Abdomen: Abdomen soft, non-tender REVIEW OF SYSTEMS Constitutional: Denies malaise, fevers Cardiovascular: Denies chest pain, palpitations Respiratory: Denies shortness of breath, wheezing Gastrointestinal: Per HPI Genitourinary: Denies dysuria, polyuria Musculoskeletal: Denies joint swelling, joint stiffness Neurological: Denies numbness, tingling Integumentary: Denies rashes, skin lesions Endocrine: Denies fatigue, weight loss Written informed consent obtained from the patient. Risks (including but not limited to perforation, infection, bloating, bleeding, need for emergent surgeryand loss of life), benefits and alternatives explained and questions answered. The patient verbalized understanding. Based on history patient is an appropriate candidate for the procedure. Vinicio Tamez MD Documented By: Vinicio Tamez MD 11/28/23 1214 Signed By: <Electronically signed by Vinicio Tamez MD> 11/28/23 1215 [facility] Work Phone: Hospital Discharge instructionsAmbulatory Orders* Referral to Gastroenterology Time Frame: 11/11/23, Location: None [facility] Work Phone: Hospital Discharge instructions Additional Instructions DISCHARGE INSTRUCTIONS FOR GENERAL SURGERY YOUR ACTIVITY MAY INCLUDE: No restrictions on activities WOUND CARE/INCISION CARE: Apply 2 x 2 gauze below the bumper on the PEG tube to cover the incision for the next several days until the wound heals MEDICATION -[Resume all previous medications that you were taking for problems unrelated to your surgery, unless informed otherwise. If there are any problems with this, please call the original prescribing doctor. If you have any other questions regarding medications, please call our office.] -[Over the counter medications such as Acetaminophen, Ibuprofen, Naproxen, and others may be used as directed for pain unless a prescription was provided.][facility] Work Phone: Chief Complaint and Reason for Visit Chief Complaint Iron Deficiency Anem ia/orpharyngeal dysphagia Establish fall, difficulty swallowing, declining Reason for Visit Iron deficiency anem ia Oropharyngeal dysphagia Stroke Depression Hyperlipidemia Hypertension Iron deficiency anemia Oropharyngeal dysphagia Restless leg Stroke Urgency of micturition Dysphagia Chief Complaint fall, difficulty swa llowing, declining Dysphagia Dysphagia Reason for Visit Dysphagia Frequent falls Stroke Chief Complaint fall, difficulty swa llowing, declining Dysphagia Dysphagia Z01.818 Reason for Visit Dysphagia Frequent falls Stroke Chief Complaint fall, difficulty swa llowing, declining Dysphagia Dysphagia Z01.818 C76.0 Reason for Visit Dysphagia Frequent falls Stroke Chief Complaint fall, difficulty swa llowing, declining Dysphagia Dysphagia Z01.818 j39.2 C76.0 NEW - Hypopharynx Cancer Hypopharynx Cancer NEW Hypopharynx cancer Hypopharynx Cancer C13.9 J39.2 Hypopharynx Cancer chest congestion Hypopharynx Cancer Tox check Reason for Visit Dysphagia Frequent falls Stroke Squamous cell carcinoma of hypopharynx Cancer associated pain Encounter for palliative care Squamous cell carcinoma of hypopharynx Bronchitis Chief Complaint fall, difficulty swa llowing, declining Dysphagia Dysphagia Z01.818 j39.2 C76.0 NEW - Hypopharynx Cancer Hypopharynx Cancer NEW Hypopharynx cancer Hypopharynx Cancer C13.9 J39.2 Hypopharynx Cancer chest congestion Tox check Hypopharynx Cancer Reason for Visit Dysphagia Frequent falls Stroke Squamous cell carcinoma of hypopharynx Cancer associated pain Encounter for palliative care Increased oropharyngeal secretions Squamous cell carcinoma of hypopharynx Bronchitis Squamous cell carcinoma of hypopharynx Cancer associated pain Squamous cell carcinoma of hypopharynx Chief Complaint fall, difficulty swa llowing, declining Dysphagia Dysphagia Z01.818 j39.2 C76.0 NEW - Hypopharynx Cancer Hypopharynx Cancer NEW Hypopharynx cancer Hypopharynx Cancer Hypopharynx Cancer chest congestion Tox check Hypopharynx Cancer C13.9 J39.2 Hypopharynx Cancer Reason for Visit Dysphagia Frequent falls Stroke Squamous cell carcinoma of hypopharynx Cancer associated pain Encounter for palliative care Increased oropharyngeal secretions Squamous cell carcinoma of hypopharynx Bronchitis Squamous cell carcinoma of hypopharynx Cancer associated pain Squamous cell carcinoma of hypopharynx Cancer associated pain Squamous cell carcinoma of hypopharynx Chief Complaint fall, difficulty swa llowing, declining Dysphagia Dysphagia Z01.818 j39.2 C76.0 NEW - Hypopharynx Cancer Hypopharynx Cancer NEW Hypopharynx cancer Hypopharynx Cancer Hypopharynx Cancer chest congestion Tox check Hypopharynx Cancer C13.9 J39.2 Hypopharynx Cancer Hypopharynx Cancer Reason for Visit Dysphagia Frequent falls Stroke Squamous cell carcinoma of hypopharynx Cancer associated pain Encounter for palliative care Increased oropharyngeal secretions Squamous cell carcinoma of hypopharynx Bronchitis Squamous cell carcinoma of hypopharynx Cancer associated pain Squamous cell carcinoma of hypopharynx Cancer associated pain Squamous cell carcinoma of hypopharynx Cancer associated pain Squamous cell carcinoma of hypopharynx Chief Complaint fall, difficulty swa llowing, declining Dysphagia Dysphagia Z01.818 j39.2 C76.0 NEW - Hypopharynx Cancer Hypopharynx Cancer NEW Hypopharynx cancer Hypopharynx Cancer Hypopharynx Cancer chest congestion Tox check Hypopharynx Cancer C13.9 J39.2 Hypopharynx Cancer Hypopharynx Cancer Follow Up Reason for Visit Dysphagia Frequent falls Stroke Squamous cell carcinoma of hypopharynx Cancer associated pain Encounter for palliative care Increased oropharyngeal secretions Squamous cell carcinoma of hypopharynx Bronchitis Squamous cell carcinoma of hypopharynx Cancer associated pain Squamous cell carcinoma of hypopharynx Cancer associated pain Squamous cell carcinoma of hypopharynx Cancer associated pain Squamous cell carcinoma of hypopharynx Cancer associated pain Cough Squamous cell carcinoma of hypopharynx Chief Complaint fall, difficulty swa llowing, declining Dysphagia Dysphagia Z01.818 j39.2 C76.0 NEW - Hypopharynx Cancer Hypopharynx Cancer NEW Hypopharynx cancer Hypopharynx Cancer Hypopharynx Cancer chest congestion Tox check Hypopharynx Cancer Hypopharynx Cancer Hypopharynx Cancer Follow Up Hypopharynx Cancer C13.9 J39.2 Hypopharynx Cancer Reason for Visit Dysphagia Frequent falls Stroke Squamous cell carcinoma of hypopharynx Cancer associated pain Encounter for palliative care Increased oropharyngeal secretions Squamous cell carcinoma of hypopharynx Bronchitis Squamous cell carcinoma of hypopharynx Cancer associated pain Squamous cell carcinoma of hypopharynx Cancer associated pain Squamous cell carcinoma of hypopharynx Cancer associated pain Squamous cell carcinoma of hypopharynx Cancer associated pain Cough Squamous cell carcinoma of hypopharynx Cancer associated pain Constipation Squamous cell carcinoma of hypopharynx Chief Complaint fall, difficulty swa llowing, declining Dysphagia Dysphagia Z01.818 j39.2 C76.0 NEW - Hypopharynx Cancer Hypopharynx Cancer NEW Hypopharynx cancer Hypopharynx Cancer Hypopharynx Cancer chest congestion Tox check Hypopharynx Cancer Hypopharynx Cancer Hypopharynx Cancer Follow Up Hypopharynx Cancer C13.9 J39.2 Hypopharynx Cancer Head and Neck Cancer Reason for Visit Dysphagia Frequent falls Stroke Squamous cell carcinoma of hypopharynx Cancer associated pain Encounter for palliative care Increased oropharyngeal secretions Squamous cell carcinoma of hypopharynx Bronchitis Squamous cell carcinoma of hypopharynx Cancer associated pain Squamous cell carcinoma of hypopharynx Cancer associated pain Squamous cell carcinoma of hypopharynx Cancer associated pain Squamous cell carcinoma of hypopharynx Cancer associated pain Cough Squamous cell carcinoma of hypopharynx Cancer associated pain Constipation Squamous cell carcinoma of hypopharynx Chief Complaint Dysphagia Dysphagia Z01.818 j39.2 C76.0 NEW - Hypopharynx Cancer Hypopharynx Cancer NEW Hypopharynx cancer Hypopharynx Cancer Hypopharynx Cancer chest congestion Tox check Hypopharynx Cancer Hypopharynx Cancer Hypopharynx Cancer Follow Up Hypopharynx Cancer C13.9 J39.2 Head and Neck Cancer Hypopharynx Cancer Follow Up Reason for Visit Squamous cell carcin jai of hypopharynx Cancer associated pain Encounter for palliative care Increased oropharyngeal secretions Squamous cell carcinoma of hypopharynx Bronchitis Squamous cell carcinoma of hypopharynx Cancer associated pain Squamous cell carcinoma of hypopharynx Cancer associated pain Squamous cell carcinoma of hypopharynx Cancer associated pain Squamous cell carcinoma of hypopharynx Cancer associated pain Cough Squamous cell carcinoma of hypopharynx Cancer associated pain Constipation Squamous cell carcinoma of hypopharynx Cancer associated pain Increased oropharyngeal secretions Squamous cell carcinoma of hypopharynx Chief Complaint Dysphagia Dysphagia Z01.818 j39.2 C76.0 NEW - Hypopharynx Cancer Hypopharynx Cancer NEW Hypopharynx cancer Hypopharynx Cancer Hypopharynx Cancer chest congestion Tox check Hypopharynx Cancer Hypopharynx Cancer Hypopharynx Cancer Hypopharynx Cancer Follow Up C13.9 J39.2 Head and Neck Cancer Follow Up Hypopharynx Cancer Hypopharynx Cancer Hypopharynx Cancer Follow Up Reason for Visit Squamous cell carcin jai of hypopharynx Cancer associated pain Encounter for palliative care Increased oropharyngeal secretions Squamous cell carcinoma of hypopharynx Bronchitis Squamous cell carcinoma of hypopharynx Cancer associated pain Squamous cell carcinoma of hypopharynx Cancer associated pain Squamous cell carcinoma of hypopharynx Cancer associated pain Squamous cell carcinoma of hypopharynx Cancer associated pain Cough Squamous cell carcinoma of hypopharynx Cancer associated pain Constipation Squamous cell carcinoma of hypopharynx Cancer associated pain Increased oropharyngeal secretions Squamous cell carcinoma of hypopharynx Cancer associated pain Squamous cell carcinoma of hypopharynx Chief Complaint Dysphagia Dysphagia Z01.818 j39.2 C76.0 NEW - Hypopharynx Cancer Hypopharynx Cancer NEW Hypopharynx cancer Hypopharynx Cancer Hypopharynx Cancer chest congestion Tox check Hypopharynx Cancer Hypopharynx Cancer Hypopharynx Cancer Hypopharynx Cancer Follow Up C13.9 J39.2 Head and Neck Cancer Follow Up Hypopharynx Cancer Hypopharynx Cancer Follow Up Hypopharynx Cancer Reason for Visit Squamous cell carcin jai of hypopharynx Cancer associated pain Encounter for palliative care Increased oropharyngeal secretions Squamous cell carcinoma of hypopharynx Bronchitis Squamous cell carcinoma of hypopharynx Cancer associated pain Squamous cell carcinoma of hypopharynx Cancer associated pain Squamous cell carcinoma of hypopharynx Cancer associated pain Squamous cell carcinoma of hypopharynx Cancer associated pain Cough Squamous cell carcinoma of hypopharynx Cancer associated pain Constipation Squamous cell carcinoma of hypopharynx Cancer associated pain Increased oropharyngeal secretions Squamous cell carcinoma of hypopharynx Cancer associated pain Squamous cell carcinoma of hypopharynx Cancer associated pain Constipation Squamous cell carcinoma of hypopharynx Chief Complaint Hypopharynx Cancer chest congestion Tox check Hypopharynx Cancer Hypopharynx Cancer Hypopharynx Cancer Hypopharynx Cancer Follow Up Head and Neck Cancer Follow Up Hypopharynx Cancer Hypopharynx Cancer Follow Up Hypopharynx Cancer C13.9 J39.2 Follow Up wellness Hypopharynx Cancer Reason for Visit Cancer associated pa in Encounter for palliative care Increased oropharyngeal secretions Squamous cell carcinoma of hypopharynx Bronchitis Squamous cell carcinoma of hypopharynx Cancer associated pain Squamous cell carcinoma of hypopharynx Cancer associated pain Squamous cell carcinoma of hypopharynx Cancer associated pain Squamous cell carcinoma of hypopharynx Cancer associated pain Cough Squamous cell carcinoma of hypopharynx Cancer associated pain Constipation Squamous cell carcinoma of hypopharynx Cancer associated pain Increased oropharyngeal secretions Squamous cell carcinoma of hypopharynx Cancer associated pain Squamous cell carcinoma of hypopharynx Cancer associated pain Constipation Squamous cell carcinoma of hypopharynx Constipation Depression Hyperlipidemia Hypertension Medicare annual wellness visit, subsequent Restless leg S/P percutaneous endoscopic gastrostomy (PEG) tube placement Squamous cell carcinoma of hypopharynx Stroke Urgency of micturition Cancer associated pain 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 Advance Directives Advance Directive Response Recorded Date/ Time Advance Directives No July 12, 2023 12:27pm Summary Purpose Family History No Family History Records Found Additional Source Comments Care Teams (unrecognized sec tion and content) Accountant Property Relationship Specialty Start Date End Date Shaikh Ruiz MD PCP - General Internal Medicine 01/20/23 Team Status: Active Member Role Status Dates MARY LOU Ojeda Primary Care Provider Active Team Status: Inactive Member Role Status Dates Vinicio Tamez MD Attending Provider Active S tart: August 22, 2023 End: August 22, 2023 Perlita Liu APRN [employer] SC[employer] CLERK-C Primary Care Provider Active Start: August 22, 2023 End: August 22, 2023 Team Status: Inactive Member Role Status Dates Perlita Liu APRN FI[employer] SC[employer] CLERK-C Primary Care Provider, Attending Provider Active Start: August 27, 2023 End: August 27, 2023 Team Status: Inactive Member Role Status Dates Perlita Liu APRN [employer] SC[employer] CLERK-C Primary Care Provider, Attending Provider Active Start: November 11, 2023 End: November 11, 2023 Team Status: Inactive Member Role Status Dates Perliat Liu APRN FIELD [employer]E SCALE CLERK-C Primary Care Provider Active Start: November 28, 2023 End: November 28, 2023 Vinicio Tamez MD Attending Provider Active S tart: November 28, 2023 End: November 28, 2023 Team Status: Active Member Role Status Dates Perlita Liu APRN [employer] SC[employer] CLERK-C Primary Care Provider Active Start: November 27 Vinicio Tamez MD Attending Provider, Other Provider Active Start: November 28, 2023 Team Status: Inactive Member Role Status Dates Perlita Liu APRN [employer] SC[employer] CLERK-C Primary Care Provider Active Start: December 02, 2023 End: December 02, 2023 Jaswant Zaidi DO Attending Provider Active S tart: December 02, 2023 End: December 02, 2023 Team Status: Inactive Member Role Status Dates Jaswant Zaidi DO Attending Provider Active S tart: December 05, 2023 End: December 05, 2023 Team Status: Inactive Member Role Status Dates Jaswant Zaidi DO Attending Provider Active S tart: December 08, 2023 End: December 08, 2023 Perlita Liu APRN FI[employer] SCALE CLERK-C Primary Care Provider Active Start: December 08, 2023 End: December 08, 2023 Team Status: Inactive Member Role Status Dates Perlita Liu APRN FI[employer] SC[employer] CLERK-C Primary Care Provider Active Start: December 17, 2023 End: December 17, 2023 Sweetie Mirza MD Attending Provider Active Start: December 17, 2023 End: December 17, 2023 Jaswant Zaidi DO Referring Provider Active S tart: December 17, 2023 End: December 17, 2023 Team Status: Active Member Role Status Dates Perlita Rohrbacher , MANAGER [employer]TS [employer] SCALE CLERK-C Primary Care Provider Active Start: December 18, 2023 Sweetie Mirza MD Attending Provid er, Other Provider Active Start: December 18, 2023 Jaswant Zaidi DO Referring Provider Active S tart: December 18, 2023 Team Status: Inactive Member Role Status Dates Perlita Liu APRN FI[employer] SC[employer] CLERK-C Primary Care Provider Active Start: December 22, 2023 End: December 22, 2023 Nabil Fox II, DO Attending Provider Active Start: December 22, 2023 End: December 22, 2023 Sweetie Mirza MD Referring Provider Active Start: December 22, 2023 End: December 22, 2023 Team Status: Inactive Member Role Status Dates Perlita Liu APRN FI[employer] SC[employer] CLERK-C Primary Care Provider Active Start: December 23, 2023 End: December 23, 2023 Nabil Fox II, DO Attending Provider Active Start: December 23, 2023 End: December 23, 2023 Team Status: Active Member Role Status Dates Perlita Liu APRN FI[employer] SCALE CLERK-C Primary Care Provider Active Start: December 29 Sweetie Mirza MD Attending [facility] er, Other Provider Active Start: December 30, 2023 Jaswant Zaidi DO Referring Provider Active S tart: December 30, 2023 Team Status: Active Member Role Status Dates Perlita Liu APRN [employer] SC[employer] CLERK-C Primary Care Provider, Attending Provider Active Start: December 31, 2023 Team Status: Active Member Role Status Dates Perlita Liu APRN FI[employer] SCALE CLERK-C Primary Care Provider Active Start: January 01, 2024 Sweetie Mirza MD Attending Provider Active Start: January 01, 2024 Team Status: Active Member Role Status Dates Perlita Liu APRN FI[employer] SC[employer] CLERK-C Primary Care Provider Active Start: January 06, 2024 Jaswant Zaidi DO Referring Provider Active S tart: January 06, 2024 Nabil Fox II, DO Active S tart: January 06, 2024 Sweetie Mirza MD Attending Provid er, Other Provider Active Start: January 06, 2024 Team Status: Inactive Member Role Status Dates Perlita Liu APRN FI[employer] SC[employer] CLERK-C Primary Care Provider Active Start: January 07, 2024 End: January 07, 2024 Deirdre Law APRN Attending Provider Active Start: January 07, 2024 End: January 07, 2024 Team Status: Inactive Member Role Status Dates Perlita Liu APRN FI[employer] SC[employer] CLERK-C Primary Care Provider, Attending Provider Active Start: January 07, 2024 End: January 07, 2024 Team Status: Active Member Role Status Dates Perlita Liu APRN FI[employer] SCALE CLERK-C Primary Care Provider Active Start: January 07, 2024 Jaswant Zaidi DO Referring Provider Active S tart: January 07, 2024 Nabil Fox II, Active S tart: January 07, 2024 Sweetie Mirza MD Attending Provider Active Start: January 07, 2024 Team Status: Inactive Member Role Status Dates Perlita Liu APRN FI[employer] SC[employer] CLERK-C Primary Care Provider Active Start: January 07, 2024 End: January 07, 2024 Gena Lyn APRN Attending Provider Acti ve Start: January 07, 2024 End: January 07, 2024 Team Status: Active Member Role Status Dates Perlita Liu APRN FIELD [employer] SCALE CLERK-C Primary Care Provider Active Start: January 07, 2024 Deirdre Law APRN Attending Prov ider, Other Provider Active Start: January 07, 2024 Team Status: Inactive Member Role Status Dates Perlita Liu APRN FI[employer] SC[employer] CLERK-C Primary Care Provider Active Start: January 12, 2024 End: January 12, 2024 Deirdre Law APRN Attending Provider Active Start: January 12, 2024 End: January 12, 2024 Team Status: Active Member Role Status Dates Perlita Liu APRN FIELD [employer] SC[employer] CLERK-C Primary Care Provider Active Start: January 12, 2024 Jaswant Zaidi DO Referring Provider Active S tart: January 12, 2024 Nabil Fox II, DO Attending Provider Active Start: January 12, 2024 Team Status: Active Member Role Status Dates Perlita Liu APRN FI[employer] SC[employer] CLERK-C Primary Care Provider Active Start: January 12, 2024 Deirdre Law APRN Attending Prov ider, Other Provider Active Start: January 12, 2024 Team Status: Active Member Role Status Dates Perlita Liu APRN FI[employer] SC[employer] CLERK-C Primary Care Provider Active Start: January 13, 2024 Jaswant Zaiid , DO Referring Provider Active S tart: January 13, 2024 Nabil Fox II, DO Other Provider Active Start: January 13, 2024 Sweetie Mirza MD Attending Provider Active Start: January 13, 2024 Team Status: Active Member Role Status Dates Perlita Liu APRN FI[employer] SC[employer] CLERK-C Primary Care Provider Active Start: January 15, 2024 Sweetie Mirza MD Attending Provider Active Start: January 15, 2024 Team Status: Inactive Member Role Status Dates Perlita Liu APRN FIELD [employer] SCALE CLERK-C Primary Care Provider Active Start: January 19, 2024 End: January 19, 2024 Deirdre Law APRN Attending Provider Active Start: January 19, 2024 End: January 19, 2024 Team Status: Active Member Role Status Dates Perlita Liu APRN FIELD [employer] SCALE CLERK-C Primary Care Provider Active Start: January 19, 2024 Deirdre Law APRN Attending Prov ider, Other Provider Active Start: January 19, 2024 Team Status: Active Member Role Status Dates Perlita Liu APRN FI[employer] SCALE CLERK-C Primary Care Provider Active Start: January 19, 2024 Jaswant Zaidi , Referring Provider Active S tart: January 19, 2024 Nabil Fox II, DO Attending Provider Active Start: January 19, 2024 Team Status: Active Member Role Status Dates Perlita Liu APRN FI[employer] SC[employer] CLERK-C Primary Care Provider Active Start: January 21, 2024 Jaswant Zaidi , Referring Provider Active S tart: January 21, 2024 Nabil Fox II, DO Other Provider Active Start: January 21, 2024 Sweetie Mirza MD Attending Provider Active Start: January 21, 2024 Team Status: Inactive Member Role Status Dates Perlita Liu APRN FI[employer] SC[employer] CLERK-C Primary Care Provider Active Start: January 23, 2024 End: January 23, 2024 Deirdre Law APRN Attending Provider Active Start: January 23, 2024 End: January 23, 2024 Team Status: Active Member Role Status Dates Perlita Liu APRN FIELD [employer] SCALE CLERK-C Primary Care Provider Active Start: January 23, 2024 Deirdre Law APRN Attending Prov ider, Other Provider Active Start: January 23, 2024 Team Status: Active Member Role Status Dates Perlita Liu APRN FI[employer] SCALE CLERK-C Primary Care Provider Active Start: January 23, 2024 Jaswant Zaidi DO Referring Provider Active S tart: January 23, 2024 Nabil Fox II, DO Attending Provider Active Start: January 23, 2024 Team Status: Inactive Member Role Status Dates Perlita Liu APRN FI[employer] SC[employer] CLERK-C Primary Care Provider Active Start: January 26, 2024 End: January 26, 2024 Deirdre Law APRN Attending Provider Active Start: January 26, 2024 End: January 26, 2024 Team Status: Active Member Role Status Dates Perlita Liu APRN FI[employer] SC[employer] CLERK-C Primary Care Provider Active Start: January 26, 2024 Jaswant Zaidi , Referring Provider Active S tart: January 26, 2024 Nabil Fox II, DO Attending Provider Active Start: January 26, 2024 Team Status: Active Member Role Status Dates Perlita Liu APRN FI[employer] SC[employer] CLERK-C Primary Care Provider Active Start: January 26, 2024 Deirdre Law APRN Attending Prov ider, Other Provider Active Start: January 26, 2024 Team Status: Inactive Member Role Status Dates Perlita Liu APRN FIELD [employer]E SCALE CLERK-C Primary Care Provider Active Start: January 26, 2024 End: January 26, 2024 Nabil Fox II, Attending Provider Active Start: January 26, 2024 End: January 26, 2024 Team Status: Active Member Role Status Dates Perlita Liu APRN FIELD CANE SCALE CLERK-C Primary Care Provider Active Start: January 20, 2024 Jaswant Zaidi , Referring Provider Active S tart: January 20, 2024 Nabil Fox II, DO Other Provider Active Start: January 20, 2024 Sweetie Mirza MD Attending Provider Active Start: January 20, 2024 Team Status: Active Member Role Status Dates Perlita Liu APRN FIELD CANE SCALE CLERK-C Primary Care Provider Active Start: January 28, 2024 Jaswant Zaidi DO Referring Provider Active S tart: January 28, 2024 Nabil Fox II, Other Provider Active Start: January 28, 2024 Sweetie Mirza MD Attending Provider Active Start: January 28, 2024 Team Status: Active Member Role Status Dates Perlita Liu APRN FIELD CANE SCALE CLERK-C Primary Care Provider Active Start: January 29, 2024 Sweetie Mirza MD Attending Provider Active Start: January 29, 2024 Team Status: Inactive Member Role Status Dates Perlita Liu APRN FIELD [employer]E SCALE CLERK-C Primary Care Provider Active Start: February 02, 2024 End: February 02, 2024 Deirdre Law APRN Attending Provider Active Start: February 02, 2024 End: February 02, 2024 Team Status: Active Member Role Status Dates Perlita Liu APRN FIELD CANE SCALE CLERK-C Primary Care Provider Active Start: February 02, 2024 Jaswant Zaidi DO Referring Provider Active S tart: February 02, 2024 Nabil Fox II, DO Attending Provider Active Start: February 02, 2024 Team Status: Active Member Role Status Dates Perlita Liu APRN FIELD CANE SCALE CLERK-C Primary Care Provider Active Start: January Deirdre Law APRN Attending Prov ider, Other Provider Active Start: February 02, 2024 Team Status: Inactive Member Role Status Dates Perlita Liu APRN FIELD CANE SCALE CLERK-C Primary Care Provider Active Start: February 03, 2024 End: February 03, 2024 Shanelle Mallory DO Attending Provider Active Start: February 03, 2024 End: February 03, 2024 Team Status: Active Member Role Status Dates Perlita Liu APRN FIELD CANE SCALE CLERK-C Primary Care Provider Active Start: January 05, 2024 Jaswant Zaidi DO Referring Provider Active S tart: January 05, 2024 Nabil Fox II, DO Active S tart: January 05, 2024 Sweetie Mirza MD Attending Provid er, Other Provider Active Start: January 05, 2024 Team Status: Active Member Role Status Dates Perlita Liu APRN FIELD CANE SCALE CLERK-C Primary Care Provider Active Start: February 09, 2024 Jaswant Zaidi , Referring Provider Active S tart: February 09, 2024 Nabil Fox II, DO Attending Provider Active Start: February 09, 2024 Team Status: Inactive Member Role Status Dates Perlita Liu APRN FIELD CANE SCALE CLERK-C Primary Care Provider Active Start: February 09, 2024 End: February 09, 2024 Deirdre Law APRN Attending Provider Active Start: February 09, 2024 End: February 09, 2024 Team Status: Active Member Role Status Dates Perlita Liu APRN FIELD CANE SCALE CLERK-C Primary Care Provider Active Start: January Deirdre Law APRN Attending Prov ider, Other Provider Active Start: February 09, 2024 Team Status: Inactive Member Role Status Dates Perlita Liu APRN FIELD CANE SCALE CLERK-C Primary Care Provider Active Start: February 09, 2024 End: February 09, 2024 Nabil Fox II, DO Attending Provider Active Start: February 09, 2024 End: February 09, 2024 Team Status: Active Member Role Status Dates Perlita Liu APRN FIELD CANE SCALE CLERK-C Primary Care Provider Active Start: January 12, 2024 Jaswant Zaidi DO Referring Provider Active S tart: January 12, 2024 Nabil Fox II, DO Other Provider Active Start: January 12, 2024 Sweetie Mirza MD Attending Provider Active Start: January 12, 2024 Team Status: Active Member Role Status Dates Perlita Liu APRN FIELD CANE SCALE CLERK-C Primary Care Provider Active Start: January 19, 2024 Jaswant Zaidi DO Referring Provider Active S tart: January 19, 2024 Nabil Fox II, DO Other Provider Active Start: January 19, 2024 Sweetie Mirza MD Attending Provider Active Start: January 19, 2024 Team Status: Active Member Role Status Dates Perlita Liu APRN FIELD CANE SCALE CLERK-C Primary Care Provider Active Start: January 26, 2024 Jaswant Zaidi DO Referring Provider Active S tart: January 26, 2024 Nabil Fox II, DO Other Provider Active Start: January 26, 2024 Sweetie Mirza MD Attending Provider Active Start: January 26, 2024 Team Status: Active Member Role Status Dates Perlita Liu APRN FIELD CANE SCALE CLERK-C Primary Care Provider Active Start: January Jaswant Zaidi DO Referring Provider Active S tart: February 11, 2024 Nabil Fox II, DO Active S tart: February 11, 2024 Sweetie Mirza MD Attending [facility] er, Other Provider Active Start: February 11, 2024 Team Status: Inactive Member Role Status Dates Perlita Liu APRN FIELD CANE SCALE CLERK-C Primary Care Provider Active Start: February 18, 2024 End: February 18, 2024 Deirdre Law APRN Attending Provider Active Start: February 18, 2024 End: February 18, 2024 Team Status: Active Member Role Status Dates Perlita Liu APRN FIELD CANE SCALE CLERK-C Primary Care Provider Active Start: February 18, 2024 Jaswatn Zaidi , Referring Provider Active S tart: February 18, 2024 Nabil Fox II, DO Active S tart: February 18, 2024 Sweetie Mirza MD Attending Provider Active Start: February 18, 2024 Team Status: Active Member Role Status Dates Perlita Liu APRN FIELD CANE SCALE CLERK-C Primary Care Provider Active Start: January Jaswant Zaidi DO Referring Provider Active S tart: February 18, 2024 Nabil Fox II, DO Active S tart: February 18, 2024 Sweetie Mirza MD Attending [facility] er, Other Provider Active Start: February 18, 2024 Team Status: Inactive Member Role Status Dates Perlita Liu APRN FIELD CANE SCALE CLERK-C Primary Care Provider Active Start: February 18, 2024 End: February 18, 2024 Gena Lyn APRN Attending Provider Acti ve Start: February 18, 2024 End: February 18, 2024 Team Status: Active Member Role Status Dates Perlita Liu APRN FIELD CANE SCALE CLERK-C Primary Care Provider Active Start: January Deirdre Law APRN Attending Prov ider, Other Provider Active Start: February 18, 2024 Team Status: Inactive Member Role Status Dates Perlita Liu APRN FIELD CANE SCALE CLERK-C Primary Care Provider Active Start: February 232023 End: February 24, 2024 Deirdre Law APRN Attending Provider Active Start: February 24, 2024 End: February 24, 2024 Team Status: Active Member Role Status Dates Perlita Liu APRN FIELD CANE SCALE CLERK-C Primary Care Provider Active Start: February 232023 Jaswant Zaidi DO Referring Provider Active S tart: February 24, 2024 Nabil Fox II, DO Active S tart: February 24, 2024 Sweetie Mirza MD Attending Provider Active Start: February 24, 2024 Team Status: Active Member Role Status Dates Perlita Liu APRN FIELD CANE SCALE CLERK-C Primary Care Provider Active Start: January Jaswant Zaidi DO Referring Provider Active S tart: February 16, 2024 Nabil Fox II, DO Active S tart: February 16, 2024 Sweetie Mirza MD Attending [facility] er, Other Provider Active Start: February 16, 2024 Team Status: Active Member Role Status Dates Perlita Liu APRN FIELD CANE SCALE CLERK-C Primary Care Provider Active Start: February 232023 Jaswant Zaidi DO Referring Provider Active S tart: February 24, 2024 Nabil Fox II, DO Active S tart: February 24, 2024 Sweetie Mirza MD Attending [facility] er, Other Provider Active Start: February 24, 2024 Team Status: Active Member Role Status Dates Perlita Liu APRN FIELD CANE SCALE CLERK-C Primary Care Provider Active Start: February 232023 Deirdre Law APRN Attending Prov ider, Other Provider Active Start: February 24, 2024 Team Status: Active Member Role Status Dates Perlita Liu APRN FIELD CANE SCALE CLERK-C Primary Care Provider Active Start: February 252023 Sweetie Mirza MD Attending Provider Active Start: February 26, 2024 Team Status: Inactive Member Role Status Dates Perlita Liu APRN FIELD CANE SCALE CLERK-C Primary Care Provider Active Start: February 262023 End: February 27, 2024 Nabil Fox II, DO Attending Provider Active Start: February 27, 2024 End: February 27, 2024 Team Status: Inactive Member Role Status Dates Perlita Liu APRN FIELD CANE SCALE CLERK-C Primary Care Provider, Attending Provider Active Start: March 04, 2024 End: March 04, 2024 Team Status: Inactive Member Role Status Dates Perlita Liu APRN FIELD CANE SCALE CLERK-C Primary Care Provider Active Start: March 29, 2024 End: March 29, 2024 Deirdre Law APRN Attending Provider Active Start: March 29, 2024 End: March 29, 2024 Team Status: Active Member Role Status Dates Perlita Liu APRN FIELD CANE SCALE CLERK-C Primary Care Provider Active Start: March Deirdre Law APRN Attending Prov ider, Other Provider Active Start: March 29, 2024 Team Status: Active Member Role Status Dates Perlita Liu APRN FIELD CANE SCALE CLERK-C Primary Care Provider Active Start: March 29, 2024 Jaswant Zaidi DO Referring Provider Active S tart: March 29, 2024 Nabil Fox II, DO Attending Provider Active Start: March 29, 2024 Sweetie Mirza MD Active Star t: March 29, 2024 Accountant Property Relationship Specialty Start Date End Date Perlita Liu NP [address] [place] [id number] PCP - General Family Medicine 12/02/23 Vinicio Tamez MD [address] [id number] Referring Physician Gastroenterology 12/15/23 Jaswant Zaidi DO [address] [facility] [place] [address] Otolaryngology 12/15/23 Accountant Property Relationship Specialty Start Date End Date Perlita Liu NP [address] [place] [address] [place] [address] PCP - General Family Medicine 12/02/23 Vinicio Tamez MD [address] [facility] [address] [place] [id number] Referring Physician Gastroenterology 12/15/23 Jaswant Zaidi DO [address] [place] [address] Otolaryngology 12/15/23 Goals (unrecognized section and content) Goals may be documented in a n alternate section (unrecognized sect ion and content) No Status Records FoundNo Status Records Found INFORMATION SOURCE (unrecogn ized section and content) DATE CREATED AUTHOR 03/31/2024 [facility] DATE CREATED AUTHOR AUTHOR'S ORGANIZ ATION 04/02/2024 [facility] Reason for Visit (unrecogniz ed section and content) Reason Comments Cancer FOR RECORDS PERTAINING TO PATIENTS WHO ARE [...] BE BASED ON THE PRIMARY CLINICAL RECORDS. [facility] provides no warranty or guarantee of the accuracy or completeness of information in this document.
[2024-04-09 14:57] LABS: Percent Iron Saturation 21.7 %
[2024-04-09 14:58] LABS: Alanine Aminotransferase 59 U/L (16-63); Albumin Globulin Ratio 0.9; Albumin Level 3.2 g/dL (3.4-5.0); Alkaline Phosphatase 194 U/L (46-116); Anion Gap 14.4; Aspartate Amino Transferase 48 U/L (15-37); Bilirubin Total 0.4 mg/dL (0.2-1.0); Calcium 9.3 mg/dL (8.5-10.1); Carbon Dioxide 27.9 mmol/L (21.0-32.0); Chloride 103 mmol/L (98-107); Estimated GFR (African America >60 (>=60 mL/min/1.73m^2); Estimated GFR (Non-African Ame >60 (>=60 mL/min/1.73m^2); Globulin 3.5 g/dL; Glucose 120 mg/dL (74-106); Potassium 4.3 mmol/L (3.5-5.1); Sodium 141 mmol/L (136-145); Total Protein 6.7 g/dL (6.4-8.2)
[2024-04-09 15:14] LABS: Basophils Percent Auto 0.5 % (0.2-2.0); Eosinophils Absolute Auto 0.1 10^3/uL (0.0-0.7); Eosinophils Percent Auto 1.2 % (0.9-7.0); Hematocrit 43.4 % (42.0-54.0); Hemoglobin 14.5 g/dL (14.0-18.0); Immature Granulocytes Abs Auto 0.01 10^3/uL (0.00-0.03); Immature Granulocytes Pct Auto 0.2 % (0.0-0.5); Lymphocytes Absolute Auto 1.2 10^3/uL (1.2-3.8); Lymphocytes Percent Auto 28.2 % (20.5-60.0); Mean Corpuscular HGB Conc 33.4 g/dL (29.9-35.2); Mean Corpuscular Hemoglobin 34.1 pg (25.9-34.0); Mean Corpuscular Volume 102.1 fL (80.0-94.0); Mean Platelet Volume 10.9 fL (9.5-13.5); Monocytes Absolute Auto 0.4 10^3/uL (0.3-0.8); Neutrophils Absolute Auto 2.6 10^3/uL (1.4-6.5); Neutrophils Percent Auto 60.9 % (43.0-75.0); Platelet Count 198 10^3/uL (150-450); Red Blood Count 4.25 10^6/uL (4.70-6.10); Red Cell Distribution Width 13.8 % (11.0-15.0); White Blood Count 4.2 10^3/uL (4.0-11.0)
[2024-04-10 04:07] LABS: CEA 2.9 ng/mL (0.0-4.7)
== END 2024-04-09 14:04 | disposition home or self-care (01) ==
LOC: LAB 14:05
PROVIDERS: PCP Nurse Practitioner Family; Visit Provider Internal Medicine
DX: C13.9 Malignant neoplasm of hypopharynx, unspecified (principal)
CPT/HCPCS: 36415; 80053; 82378; 82728; 83540; 83550; 85025

== ENCOUNTER 2024-12-16 08:29 | Outpatient (OUT) | payer MEDICARE, SELFPAY ==
--- OUTSIDE RECORDS SUMMARY | 2024-12-16 08:39 | XMS_ITS | CCD ---
Author Organization [facility] Care Team Providers Care Benzene Worker Name Role Phone Shaikh Ruiz MD Primary Care Provider MARY LOU Liu Primary Care Provider MD Vinicio Tamez Attending Provider DO Jaswant Zaidi Attending Provider MD Sweetie Mirza Attending Provider MARY LOU Law Attending Provider DO Jaswant Zaidi Referring Provider DO Jaswant Zaidi Referring Provider [phone] Ruddy LEAL, DO Nabil Castaneda Attending Provider MD Sweetie Mirza Attending Provider DO Jaswant Zaidi Referring Provider Ruddy LEAL, DO Nabil J Attending Provider DO Jaswant Zaidi Referring Provider Ruddy II, DO Nabil J Attending Provider [phone] DO Jaswant Zaidi Referring Provider Ruddy LEAL, DO Nabil Castaneda Attending Provider MD Sweetie Mirza Attending Provider DO Jaswant Zaidi Referring Provider Ruddy LEAL, DO Nabil J Attending Provider [phone] DO Shanelle Mallory Attending Provider Murcek, DO Jaswant Referring Provider Ruddy II, DO Nabil Castaneda Attending Provider Murcek, DO Jaswant Referring Provider Murcek, DO Jaswant Referring Provider MARY LOU Liu [facility] Primary Care Provider MD Sweetie Mirza Attending Provider Muryohannesk, DO Jaswant Referring Provider Ruddy II, DO Nabil Castaneda Attending Provider Alexa LARSEN, Perlita A Primary Care Provider Vinicio Tamez MD Unavailable Dyan DOJaswant W Unavailable [phone] Alexa BARRETO, [facility] Primary Care Provider Jaswant Zaidi DO Referring Provider Nabil Fox DO Attending Provider Jaswant Zaidi DO Attending Provider [facility] Dyan DOJaswant Referring Provider [phone] Nabil Fox DO Attending Provider [phone] Jaswant Zaidi DO Attending Provider Alexa BARRETO, [facility] Primary Care Provider Vinicio Tamez MD Unavailable Deirdre Law Attending Unavailable Deirdre Law Admitting Unavailable Giselel Liufer Primary Care Unavailable Alexa Perlita Primary Care Unavailable Dyan Jaswant Attending Unavailable Dyan, Jaswant Admitting Unavailable Giselle Liufer Primary Care Unavailable Jaswant Zaidi Attending Unavailable Dyan Jaswant Admitting Unavailable Shanelle Mallory Attending Unavailable Rohrbacher, Perlita Primary Care Unavailable Itdavidkowitz, Shanelle Admitting [facility]available [facility] Jaswant Zaidi Attending Unavailable Jaswant Zaidi Admitting Unavailable Ani, Deirdre M Attending Unavailable Ani, Deirdre M Admitting Unavailable [facility] Unavailable Ani, Deirdre M Attending Unavailable Ani, Deirdre M Admitting [facility] Ani, Deirdre M Attending Unavailable Ani, Deirdre M Admitting Unavailable [facility] Unavailable Ani, Deirdre M Attending Unavailable Ani, Deirdre M Admitting [facility]available [facility] Unavailable Ani, Deirdre M Admitting Unavailable Ani, Deirdre M Attending Unavailable Ani, Deirdre M Attending Unavailable Ani, Deirdre M Admitting Unavailable [facility] Care [facility] Jaswant Zaidi Referring Unavailable Adamowicz II, Nabil J Attending Unavaila ble Adamowicz II, Nabil J Admitting Unavaila ble [facility] Unavailable Sweetie Mirza R Attending Unavailable Sweetie Mirza Admitting Unavailable Ani, Deirdre M Attending Unavailable Ani, Deirdre M Admitting Unavailable [facility] Unavailable Ani, Deirdre M Attending Unavailable Ani, Deirdre M Admitting Unavailable [facility] Unavailable Ani, Deirdre M Attending Unavailable Ani, Deirdre M Admitting Unavailable [facility] Care Unavailable JASWANT ZAIDI Attending Unavailable VINICIO TAMEZ Referring Unavailable JASWANT ZAIDI Attending Unavailable JASWANT ZAIDI Attending Unavailable JASWANT ZAIDI Attending Unavailable JASWANT ZAIDI Attending Unavailable BRYAN JUAREZ Attending Unavailable JASWANT ZAIDI Attending Unavailable FRANCIS GROSS Attending Unavailable JASWANT ZAIDI Attending Unavailable VINICIO TAMEZ Referring Unavailable ITSHANELLE MCGOWAN Attending Unavailable SHANELLE MALLORY Attending Unavailable JASWANT ZAIDI Attending Unavailable JASWANT ZAIDI Attending Unavailable JASWANT ZAIDI Attending Unavailable VINICIO TAMEZ Referring Unavailable SHANELLE MALLORY Attending Unavailable JASWANT ZAIDI Attending Unavailable Allergies Allergy Classification Reported Allergen(s) Allergy Type Date of Onset Reaction(s) Facility Anti-Epileptic Agents (1 source) gabapentin Drug Allergy 4 muscle stiffness [facility] Baclofen (1 source) Baclofen Drug Allergy 4 muscle stiffness [facility] Botulinum Toxin Type A (1 source) Botulinum Toxin Type A Drug Allergy 4 muscle stiffness [facility] cyclobenzaprine (1 source) cyclobenzaprine Drug Allergy 4 muscle stiffness [facility] tiZANidine (1 source) tiZANidine Drug Allergy 4 muscle stiffness [facility] (20 sources) Baclofen Drug Allergy 3 muscle stiffness [facility] Work Phone: (20 sources) Botulinum Toxin Type A Drug Allergy 3 muscle stiffness [facility] (20 sources) cyclobenzaprine Drug Allergy 3 muscle stiffness [facility] (20 sources) gabapentin Drug Allergy 3 muscle stiffness [facility] (20 sources) tiZANidine; Translations: [tizanidine] Drug Allergy 4 muscle stiffness [facility] (20 sources) Botulinum Toxin Type A Drug Allergy 4 [facility] (1 source) Baclofen Drug Allergy 5 [facility] Repository (1 source) Botulinum Toxin Type A Drug Allergy 5 [facility] Repository (1 source) cyclobenzaprine Drug Allergy 5 [facility] Repository (1 source) gabapentin Drug Allergy 5 [facility] Repository Medications Current Medications Medication Drug Class(es) Dates Sig (Normalized) Sig (Original) [id number] 200 actuat albuterol 0.09 mg/actuat metered dose inhaler (1 source) beta2-Adrenergic Agonist Start: 10-22-2022 Ventolin HFA 108 (90 Base) MCG/ACT inhaler every 4 (four) hours. 0 10/22/2022 Active Calcium-Vitamin D-Iron (CALCIUM 600 IRON/D PO) (5 sources) Calcium-Vitamin D-Iron (CALCIUM 600 IRON/D PO) Take 1 tablet by mouth Daily Active citalopram 20 mg oral tablet (20 sources) Serotonin Reuptake Inhibitor Start: 06-12-2023 End: 09-06-2024 take 1 tablet by mouth once daily citalopram (CeleXA) 20 MG tablet Indications: Anxiety disorder, unspecified TAKE 1 TABLET BY MOUTH DAILY 100 tablet 06/12/2023 Active 72 hr fentaNYL 0.012 mg/hr transdermal system (20 sources) Opioid Agonist Start: 01-22-2024 fentaNYL (Duragesic) 12 MCG/HR 01/22/2024 Active Start: 01-22-2024 End: 02-24-2024 Fentanyl 12 mcg/hr patch 72 hour Discontinued 1 PATCH TRANSDERML Q72H 5 January 22, 2024 February 24, 2024 2:19pm Start: 01-22-2024 fentaNYL (Dura gesic) 12 MCG/HR Q72H 01/22/2024 Active ferrous sulfate 325 mg oral tablet (20 sources) Start: 07-15-2024 take 1 tablet by mouth once daily Ferrous Sulfate 325 mg (65 mg iron) tablet Active 325 MG PO Daily July 15, 2024 1:00am Start: 05-19-2023 End: 03-04-2024 take 1 tablet by mouth once daily Ferrous Sulfate 325 mg (65 mg iron) tablet Discontinued 325 MG PO Daily August 22, 2023 1:00am March 04, 2024 10:05am fluconazole 100 mg oral tablet (20 sources) Azole Antifungal Start: 01-21-2024 fluconazole ( Diflucan) 100 MG tablet 01/21/2024 Active Start: 01-21-2024 End: 03-04-2024 Fluconazole 100 mg tablet Di scontinued 100 MG PO Daily January 21, 2024 12:00am March 04, 2024 10:05am Take two tablets on day 1 and one tablet thereafter. lisinopril 20 mg oral tablet (20 sources) Angiotensin Converting Enzyme Inhibitor lisinopril 20 MG tablet Active losartan potassium 25 mg oral tablet (20 sources) Angiotensin 2 Receptor Junie Start: take 2 tablets by mouth once daily in the morning Losartan 25 mg tablet Active 50 MG PO Every morning September 06, 2024 12:00am Start: 07-15-2022 End: 03-04-2024 losartan (Cozaar) 50 MG tabl et 1 (one) time each day at the same time 07/15/2022 Active mometasone furoate 1 mg/ml topical cream (20 sources) Corticosteroid Start: 01-19-2024 mometasone (El donis) 0.1 % cream 01/19/2024 Active Start: 01-19-2024 mometasone (El donis) 0.1 % cream Daily 01/19/2024 Active Start: 12-18-2023 End: 03-04-2024 Mometasone 0.1 % cream Disco ntinued 1 APPLIC TOPICAL Daily 45 January 19, 2024 2:06pm March 04, 2024 10:06am Apply to radiation site, once a day, AFTER radiation treatments. ondansetron 8 mg disintegrating oral tablet (20 sources) Serotonin-3 Receptor Antagonist Start: 12-22-2023 End: 03-04-2024 ondansetron ODT (Zofran-ODT) 8 MG disintegrating tablet 12/22/2023 Active pregabalin 150 mg oral capsule (20 sources) Start: 09-01-2023 take 1 capsule by mouth three times daily pregabalin (Lyrica) 150 MG capsule Indications: Restless legs syndrome TAKE 1 CAPSULE BY MOUTH THREE TIMES DAILY 270 capsule 09/01/2023 Active Start: 08-27-2023 End: 07-15-2024 take 1 capsule by mouth twice daily in the morning, then take 2 capsules by mouth in the evening Pregabalin (Lyrica) 150 mg capsule Discontinued 150 MG PO Twice daily May 24, 2024 3:58pm July 15, 2024 2:09pm Takes 1 in the am and 2 in the pm Start: 08-22-2023 End: 08-27-2023 take 1 capsule by mouth three times daily Pregabalin (Lyrica) 150 mg capsule Discontinued 150 MG PO Three times daily August 22, 2023 1:00am August 27, 2023 9:44pm Start: 10-30-2022 take 1 capsule by mo [facility] in the morning, then take 1 capsule by mouth in the evening, then take 1 capsule by mouth at bedtime pregabalin (Lyrica) 150 MG capsule Take 150 mg by mouth in the morning and 150 mg in the evening and 150 mg before bedtime. 0 10/30/2022 Active rosuvastatin calcium 20 mg oral tablet (20 sources) HMG-CoA Reductase Inhibitor Start: 09-06-2024 End: 09-06-2024 take 1 tablet by mouth once daily in the morning Rosuvastatin (Crestor) 10 mg tablet Discontinued 10 MG PO Every morning September 06, 2024 12:00am September 06, 2024 7:56am Start: 07-15-2022 End: 03-04-2024 rosuvastatin (Crestor) 20 MG tablet 1 (one) time each day at the same time 07/15/2022 Active 72 hr scopolamine 0.0139 mg/hr transdermal system (20 sources) Anticholinergic Start: 01-15-2024 scopolamine (Transderm-Scop) 1 mg/72 hr patch 72 hour patch 01/15/2024 Active Start: 01-15-2024 scopolamine (T ransderm-Scop) 1 mg/72 hr patch 72 hour patch apply one PATCH topically behind ear EVERY 3 DAYS FOR excessive secretions 01/15/2024 Active silver sulfADIAZINE 10 mg/ml topical cream (20 sources) Sulfonamide Antibacterial Start: 01-28-2024 End: 07-15-2024 silver sulfADIAZINE (Silvadene) 1 % cream 01/28/2024 Active Completed/Discontinued Medications Medication Drug Class(es) Dates Sig (Normalized) Sig (Original) aspirin 81 mg delayed release oral tablet (20 sources) Platelet Aggregation Inhibitor, Nonsteroidal Anti-inflammatory Drug Start: 07-15-2024 End: 11-02-2024 take 1 tablet by mouth once daily Aspirin (Adult Aspirin Regimen) 81 mg tablet,delayed release (DR/EC) Discontinued 81 MG PO Daily July 15, 2024 1:00am November 02, 2024 1:38pm Start: 08-22-2023 End: 03-04-2024 take 1 tablet by mouth once daily Aspirin 81 mg tablet,delayed release (DR/EC) Discontinued 81 MG PO Daily August 22, 2023 1:00am March 04, 2024 10:05am Start: 12-25-2022 Aspirin Low Do se 81 MG chewable tablet 12/25/2022 Active azithromycin 250 mg oral tablet (16 sources) Macrolide Antimicrobial Start: 01-07-2024 End: 02-03-2024 Azithromycin 250 mg tablet Discontinued 250 MG PO daily 6 5 January 07, 2024 12:00am February 03, 2024 11:02am Take 2 today and then 1 for the next 4 days doxycycline monohydrate 100 mg oral tablet (5 sources) Tetracycline-class Drug Start: 07-30-2024 End: 09-06-2024 take 1 tablet by mouth twice daily Doxycycline Monohydrate 100 mg tablet Discontinued 100 MG PO Twice daily 20 July 30, 2024 1:00am September 06, 2024 7:33am Magic Mouthwash W/Lidocaine 240 Ml Bottle (11 sources) Start: 01-07-2024 End: 03-04-2024 take 5 mL by mouth every six hours as needed Magic Mouthwash W/Lidocaine 240 Ml Bottle Discontinued 5 ML PO Four times daily 240 January 07, 2024 12:00am March 04, 2024 10:06am Take 5ml every 6 hours as needed, SWISH AND SWALLOW. Start: 01-07-2024 take 5 mL by mouth e very six hours as needed Magic Mouthwash W/Lidocaine 240 Ml Bottle Active 5 ML PO Four times daily 240 January 07, 2024 12:00am Take 5ml every 6 hours as needed, SWISH AND SWALLOW. Magic Mouthwash W/Lidocaine 240 Ml Bottle 240 mL bottle (5 sources) Start: 01-07-2024 End: 03-04-2024 take 5 mL by mouth every six hours as needed Magic Mouthwash W/Lidocaine 240 Ml Bottle 240 mL bottle Discontinued 5 ML PO Four times daily as needed for mucositis 240 January 07, 2024 12:00am March 04, 2024 10:06am Take 5ml every 6 hours as needed, SWISH AND SWALLOW. Start: 01-07-2024 End: 03-04-2024 take 5 mL by mouth every six hours as needed Magic Mouthwash W/Lidocaine 240 Ml Bottle 240 mL bottle Discontinued 5 ML PO Four times daily as needed for mucositis 240 January 06, 2024 11:00March 04, 2024 9:06am Take 5ml every 6 hours as needed, SWISH AND SWALLOW. omeprazole 40 mg delayed release oral capsule (20 sources) Proton Pump Inhibitor Start: 07-15-2024 End: 09-06-2024 take 1 capsule by mouth twice daily Omeprazole 40 mg capsule,delayed release(DR/EC) Discontinued 40 MG PO Twice daily 180 90 July 15, 2024 2:17pm September 06, 2024 7:33am Start: 07-07-2024 End: 07-15-2024 take 1 capsule by mouth once daily omeprazole (PriLOSEC) [address] capsule Take 40 mg by mouth Daily 07/07/2024 Active oxyCODONE hydrochloride 1 mg/ml oral solution (20 sources) Opioid Agonist Start: 03-29-2024 End: 07-15-2024 Oxycodone 5 mg/5 mL solution Discontinued 10 MG FEEDTUBE Four times daily as needed for pain 500 March 29, 2024 July 15, 2024 2:09pm Start: 03-23-2024 End: 03-29-2024 Oxycodone 5 mg/5 mL solution Discontinued 10 MG FEEDTUBE Every 4 hours as needed for pain 400 March 23, 2024 March 23, 2024 5:14pm Start: 02-24-2024 End: 03-23-2024 Oxycodone 5 mg/5 mL solution Discontinued 15 MG FEEDTUBE Every 4 hours as needed for pain 500 March 15, 2024 March 23, 2024 2:19pm Start: 02-02-2024 End: 02-24-2024 Oxycodone 5 mg/5 mL solution Discontinued 10 MG FEEDTUBE Every 4 hours as needed for pain 500 February 24, 2024 February 24, 2024 4:55pm Start: 01-07-2024 oxyCODONE (Martha icodone) 5 MG/5ML solution Take by mouth every 6 (six) hours if needed 01/07/2024 Active Start: 01-07-2024 End: 02-02-2024 take 5 mg by mouth every four to six hours as needed for pain Oxycodone 5 mg/5 mL solution Discontinued 5 MG PO EVERY 4-6 HOURS as needed for pain 250 January 19, 2024 February 02, 2024 12:59pm rOPINIRole 1 mg oral tablet (20 sources) Nonergot Dopamine Agonist Start: 08-27-2023 End: 09-30-2024 Ropinirole 1 mg tablet Discontinued 1 MG PO .COMPLEX 360 90 March 15, 2024 2:12pm September 30, 2024 3:16pm 1 tablet in am, 1 tablet in the afternoon and 2 tablets in pm Start: 08-22-2023 End: 08-27-2023 take 1 tablet by mouth three times daily Ropinirole 2 mg tablet Discontinued 2 MG PO Three times daily [...] at bedtime. 135 tablet 1 06/12/2023 Active Scopolamine Base (9 sources) Start: 01-14-2024 End: 03-04-2024 Scopolamine Base Discontinue d 1 PATCH TRANSDERML Q3D January 14, 2024 12:00am March 04, 2024 10:06am Apply one patch every 3 days, place patch behind ear. Start: 01-14-2024 Scopolamine Ba se Active 1 PATCH TRANSDERML Q3D January 14, 2024 12:00am Apply one patch every 3 days, place patch behind ear. Scopolamine Base 1 mg over 3 days patch 3 day (5 sources) Start: 01-14-2024 End: 03-04-2024 Scopolamine Base 1 mg over 3 days patch 3 day Discontinued 1 PATCH TRANSDERML Q3D January 14, 2024 12:00am March 04, 2024 10:06am Apply one patch every 3 days, place patch behind ear. Start: 01-14-2024 End: 03-04-2024 Scopolamine Base 1 mg over 3 days patch 3 day Discontinued 1 PATCH TRANSDERML Q3D January 13, 2024 11:00pm March 04, 2024 9:06am Apply one patch every 3 days, place patch behind ear. Sod Picosulf-Mag Ox-Citric Ac (20 sources) Start: 08-22-2023 End: 11-11-2023 take 1 dose by mouth once daily in the evening Sod Picosulf-Mag Ox-Citric Ac (Clenpiq) 10 mg-3.5 gram- 12 gram/175 mL solution Discontinued 175 ML PO Daily August 22, 2023 12:00am November 11, 2023 8:20am Take first dose orally at 3 pm the day before colonoscopy, take second dose orally at 9 pm the day before colonoscopy Start: 08-22-2023 End: 11-11-2023 take 1 dose [...] colonoscopy tamsulosin hydrochloride 0.4 mg oral capsule (20 sources) alpha-Adrenergic Junie Start: 08-27-2023 End: 11-20-2023 take 1 capsule by mouth once daily Tamsulosin 0.4 mg capsule Discontinued 0.4 MG PO Daily August 27, [...] unspecified] Onset: 12-02-2023 Resolved: 12-02-2023 08-22-2023 Chronic Comment on above: affected left side Anxiety disorders (20 sources) Generalized anxiety disorder; Translations: [Generalized anxiety disorder] Onset: 06-24-2023 06-24-2023 Chronic Cancer of head and neck (20 sources) Squamous cell carcinoma of pharynx; 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, unspecified] Onset: 01-12-2024 12-16-2023 Chronic Comment on above: chemo and radiation Chronic obstructive pulmonary disease and bronchiectasis (20 sources) Chronic obstructive lung disease; Translations: [Chronic obstructive pulmonary disease, unspecified] Onset: 08-29-2022 06-24-2023 Chronic Deficiency and other anemia (2 sources) Iron deficiency anemia, unspecified; Translations: [Iron deficiency anemia, unspecified] 08-22-2023 Episodic Disorders of lipid metabolism (20 sources) Hyperlipidemia; Translations: [Other hyperlipidemia] Onset: 06-24-2023 06-24-2023 Chronic Genitourinary symptoms and ill-defined conditions (20 sources) Urgent desire to urinate; Translations: [Urgency of urination] 08-27-2023 Episodic Hyperplasia of prostate (20 sources) Benign prostatic hyperplasia; Translations: [Benign prostatic hyperplasia without lower urinary tract symptoms] Onset: 06-24-2023 06-24-2023 Chronic Late effects of cerebrovascular disease (20 sources) History of cerebrovascular accident with residual deficit; Translations: [Unspecified sequelae of cerebral infarction] Onset: 06-24-2023 06-24-2023 Chronic Occlusion or stenosis of precerebral arteries (20 sources) Right carotid artery stenosis; Translations: [Occlusion and stenosis of right carotid artery] Onset: 12-20-2023 12-20-2023 Chronic Other connective tissue disease (12 sources) Repeated falls; Translations: [History of fall] 11-11-2023 Episodic Other gastrointestinal disorders (20 sources) History of placement of gastrostomy tube; Translations: [Gastrostomy status] Onset: 03-30-2024 03-04-2024 Chronic Other gastrointestinal disorders (4 sources) Gastrostomy status; Translations: [Gastrostomy status] 03-04-2024 Chronic Other gastrointestinal disorders (20 sources) Dysphagia; Translations: [Dysphagia, unspecified] 11-11-2023 Episodic Other gastrointestinal disorders (3 sources) Dysphagia, oropharyngeal phase; Translations: [Dysphagia, oropharyngeal phase] 08-22-2023 Episodic Other hereditary and degenerative nervous system conditions (20 sources) Restless legs; Translations: [Restless legs syndrome] Onset: 06-24-2023 06-24-2023 Chronic Other hereditary and degenerative nervous system conditions (2 sources) Restless legs syndrome; Translations: [Restless legs syndrome (RLS)] 08-27-2023 Chronic Other hereditary and degenerative nervous system conditions (2 sources) Myoclonus; Translations: [Myoclonus] 11-29-2024 Chronic Other nervous system disorders (20 sources) Pain due to neoplastic disease; Translations: [Neoplasm related pain (acute) (chronic)] Onset: 01-17-2024 01-07-2024 Chronic Other nervous system disorders (20 sources) Neoplasm related pain (acute) (chronic); Translations: [Neoplasm related pain (acute) (chronic)] Onset: 01-12-2024 01-07-2024 Chronic Other nervous system disorders (20 sources) Carpal tunnel syndrome of right wrist; Translations: [Carpal tunnel syndrome, right upper limb] Onset: 12-20-2023 12-20-2023 Chronic Other screening for suspected conditions (not mental disorders or infectious disease) (20 sources) CT of chest abnormal; Translations: [Abnormal findings on diagnostic imaging of other specified body structures] Onset: 06-24-2023 06-24-2023 Chronic Other upper respiratory disease (3 sources) Other diseases of pharynx; Translations: [Other diseases of pharynx, not elsewhere classified] 07-15-2024 Episodic Paralysis (20 sources) Left hemiparesis; Translations: [Hemiplegia, unspecified affecting left nondominant side] Onset: 12-02-2023 Resolved: 12-02-2023 12-20-2023 Chronic Residual codes; unclassified (20 sources) Obstructive sleep apnea syndrome; Translations: [Obstructive sleep apnea (adult) (pediatric)] Onset: 08-29-2022 06-24-2023 Chronic Residual codes; unclassified (20 sources) Periodic limb movement disorder; Translations: [Periodic limb movement disorder] Onset: 12-20-2023 12-20-2023 Chronic Residual codes; unclassified (12 sources) Periodic leg movements of sleep ; Translations: [Periodic limb movement disorder] Onset: 12-20-2023 12-20-2023 Chronic Residual codes; unclassified (12 sources) H/O: radiation exposure; Translations: [Personal history of irradiation] 03-30-2024 Episodic Unclassified (1 source) Cough, unspecified; Translations: [Cough, unspecified] Onset: 01-26-2024 Past or Other Problems Problem Classification Problem Date Documented Date Episodic/Chronic Chronic obstructive pulmonary disease and bronchiectasis (20 sources) Bronchitis; Translations: [Bronchitis, not specified as acute or chronic] Onset: 01-07-2024 Episodic Deficiency and other anemia (20 sources) Iron deficiency anemia; Translations: [Iron deficiency anemia, unspecified] Onset: 4 06-24-2023 Episodic Diseases of mouth; excluding dental (20 sources) Excessive salivation; Translations: [Disturbances of salivary secretion] Onset: 4 01-12-2024 Episodic Essential hypertension (20 sources) Hypertensive disorder; Translations: [Essential (primary) hypertension] Onset: 4 Resolved: 4 08-27-2023 Chronic Mood disorders (20 sources) Depressive disorder; Translations: [Depression] Onset: 4 Resolved: 4 08-27-2023 Chronic Osteoarthritis (20 sources) Osteoarthritis of knee; Translations: [Osteoarthritis of knee, unspecified] Onset: 2 Resolved: 4 12-02-2023 Chronic Other aftercare (20 sources) Patient encounter status; Translations: [Encounter for palliative care] Onset: 4 01-07-2024 Episodic Other aftercare (12 sources) Encounter for palliative care; Translations: [Encounter for palliative care] Onset: 4 01-07-2024 Episodic Other aftercare (18 sources) Aspirin therapy finding; Translations: [group home (current) use of aspirin] Onset: 5 Resolved: 5 06-26-2024 Episodic Other connective tissue disease (20 sources) Recurrent falls ; Translations: [Repeated falls] Onset: 4 Resolved: 4 11-11-2023 Episodic Other gastrointestinal disorders (20 sources) Oropharyngeal dysphagia; Translations: [Dysphagia, oropharyngeal phase] Onset: 4 06-24-2023 Episodic Other gastrointestinal disorders (16 sources) Dysphagia, unspecified; Translations: [Dysphagia, unspecified] Onset: 5 11-11-2023 Episodic Other gastrointestinal disorders (20 sources) Constipation; Translations: [Constipation, unspecified] Onset: 4 Resolved: 4 02-02-2024 Episodic Other gastrointestinal disorders (10 sources) Constipation, unspecified; Translations: [Constipation, unspecified] Onset: 4 02-02-2024 Episodic Other gastrointestinal disorders (20 sources) Oral phase dysphagia; Translations: [Dysphagia, oral phase] Onset: 4 01-29-2024 Episodic Other gastrointestinal disorders (1 source) Dysphagia, pharyngoesophageal phase; Translations: [Dysphagia, pharyngoesophageal phase] Onset: 5 Episodic Other gastrointestinal disorders (1 source) Dysphagia, oral phase; Translations: [Dysphagia, oral phase] Onset: 4 Episodic Other lower respiratory disease (20 sources) Cough; Translations: [Cough] Onset: 4 Resolved: 4 01-26-2024 Episodic Other nervous system disorders (20 sources) Paresthesia; Translations: [Paresthesia of skin] Onset: 4 12-20-2023 Episodic Other upper respiratory disease (20 sources) Mass of head; Translations: [Other diseases of pharynx] Onset: 4 Resolved: 4 11-28-2023 Episodic Other upper respiratory infections (11 sources) Maxillary sinusitis; Translations: [Chronic maxillary sinusitis] Onset: 5 Resolved: 5 08-01-2024 Chronic Residual codes; unclassified (1 source) Personal history of irradiation; Translations: [Personal history of irradiation] Onset: 5 Episodic Screening and history of mental health and substance abuse codes (20 sources) Tobacco use and exposure - finding; Translations: [Personal history of nicotine dependence] Onset: 4 Resolved: 4 12-02-2023 Episodic Results Test Name Value Interpretation Reference Range Facility [facility] 09-08-2024 L Specimen: [id number] Received: 09/08/24 Status: JHONY Rowley Num: [id number] Spec Type: Surgical Subm Dr: Jaswant Zaidi DO Tissues: A Esophagus Biopsy (ESO BX 18) B Esophagus Biopsy (ESO BX 16) Procedures: HE/4, Gross/Micro L4/2 Age/ Patient Sex Location Account Attending Physician Valente Lucio 74/M CT [id number] Jaswant Zaidi DO SPEC NUM: [id number] RECD: 09/08/24 STATUS: JHONY RAE NUM: [id number] GEORGE: 09/08/24 [facility] DR: Jaswant Zaidi DO ENTERED: 09/08/24 [facility] : SPEC TYPE: Surgical DEPT: S ENTERED BY: [id number] RECV BY: [id number] ORDERED: HE/4, Gross/Micro L4/2 ORDERED: HE/4, Gross/Micro L4/2 Pathological Diagnosis A. Esophagus at 18 cm (mucosal biopsies): Reactive squamous mucosa No active inflammation, glandular epithelium, or dysplasia seen B. Esophagus at 16 cm (mucosal biopsies): Reactive squamous mucosa, fragmented with hemorrhage No active inflammation, glandular epithelium, or dysplasia seen Note: The previous malignant biopsies were reviewed ([id number]). Clinical Information Dysphagia Gross Description Part A is received in formalin labeled with the patients name, date of , and esophageal biopsy 18 cm is a pale benjamin, focally erythematous, feathery, 0.4 cm in greatest dimension tissue bit. The specimen is entirely submitted in a single cassette. (1, ns, [id number] A) JG Part B is received in formalin labeled with the patients name, date of , and esophageal biopsy 16 cm is a pale benjamin, focally erythematous, feathery, 0.3 cm in greatest dimension tissue bit. The specimen is filtered and entirely submitted in a single cassette. Specimen: [id number] Received: 09/08/24 Status: TIMVipul Rae Num: [id number] Spec Type: Surgical Subm Dr: Jaswant Ziadi DO Tissues: A Esophagus Biopsy (ESO BX 18) B Esophagus Biopsy (ESO BX 16) Procedures: HE/Favian, Gross/Micro L4/2 Patient: Valente Lucio [id number] (Continued) Specimen: [id number] Received: 09/08/24 (Continued) Gross Description (Continued) Signed (signature on file) Cisco Wahl Jr., MD 09/09/24 1041 Specimen: Received: 09/08/24 Status: JHONY Rowley Num: [id number] Spec Type: Surgical Subm Dr: Jaswant Zaidi DO Tissues: A Esophagus Biopsy (ESO BX 18) B Esophagus Biopsy (ESO BX 16) Procedures: DEVORA/Favian, Joelle/Micro L4/2 Patient: Valente Lucio [id number] (Continued) Specimen: Received: 09/08/24 (Continued) Gross Description (Continued) (1, ning, [id number] B) CPT Codes 45428 x 2 Specimen: [id number] Received: 09/08/24 Status: JHONY Rowley Num: [id number] Spec Type: Surgical Subm Dr: Jaswant Zaidi DO Tissues: A Esophagus Biopsy (ESO BX 18) B Esophagus Biopsy (ESO BX 16) Procedures: RIMMA, Joelle/Lizet L4/2 Patient: Valente Lucio [id number] (Continued) Signed (signature on file) Cisco Wahl Jr., MD 09/09/24 1041 Normal [facility] Basic Metabolic Panelon 08-21 Anion gap [Moles/Vol] 8.2 mmol/L Normal 6.0-15.0 [facility] Comment on above: Performed By: #### C REAT, CBC #### [facility] [address] [place] [address] [place] Calcium [Mass/Vol] 9.0 mg/dL Normal 8.6-10.3 [facility] Comment on above: Result Comment: PERF ORMED BY: [place] [address] PATHOLOGIST PRICE LISTER ROXANE TAPIA M.D. Performed By: #### C REAT, CBC #### [address] Chloride [Moles/Vol] 102 mmol/L Normal 98-107 [facility] Comment on above: Performed By: #### C REAT, CBC #### [place] [address] [place] CO2 [Moles/Vol] 29.9 mmol/L Normal 21.0-31.0 [facility] Comment on above: Performed By: #### C REAT, CBC #### [place] [address] [place] Creatinine [Mass/Vol] 0.48 mg/dL Low 0.70-1.30 [facility] Comment on above: Performed By: #### C REAT, CBC #### [place] [address] [place] GFR/1.73 sq M.predicted MDRD (S/P/Bld) [Vol rate/Area] mL/min/{1.73_m2} Normal [facility] Comment on above: Performed By: #### C REAT, CBC #### [place] [address] [place] Glucose [Mass/Vol] 88 mg/dL Normal 70-100 [facility] Comment on above: Result Comment: [place] om Glucose Reference Range is dependent on time and content of last meal. Glucose of more than 200 mg/dL in a nonstressed, ambulatory subject supports the diagnosis of Diabetes Mellitus. ADA recommended reference range Performed By: #### C REAT, CBC #### [facility] [address] [place] [address] [place] Potassium [Moles/Vol] 4.1 mmol/L Normal 3.5-5.1 [facility] Comment on above: Performed By: #### C REAT, CBC #### [facility] [address] [place] [address] [place] Sodium [Moles/Vol] 136 mmol/L Normal 136-145 [facility] Comment on above: Performed By: #### C REAT, CBC #### [facility] [address] Urea nitrogen [Mass/Vol] 9 mg/dL Normal 7-25 [facility] Comment on above: Performed By: #### C REAT, CBC #### [facility] [address] [place] [address] [place] Basophils Auto (Bld) [#/Vol] Ordered By: Jaswant Zaidi on 09-06-2024 Basophils (Bld) [#/Vol] Automated basoph il count 0.0-0.2 [facility] Basophils/100 WBC Auto (Bld) Ordered By: Jaswant Zaidi on 09-06-2024 Basophils/100 WBC (Bld) Automated basophil % . [facility] Calcium [Mass/volume] in Ser um or PlasmaOrdered By: Jaswant Zaidi on 09-06-2024 Calcium [Mass/Vol] Calcium [Mass/volume] in Serum or Plasma 8.6-10.3 [facility] Carbon dioxide, total [Moles /volume] in Serum or PlasmaOrdered By: Jaswant Zaidi on 09-06-2024 CO2 [Moles/Vol] Carbon dioxide, total [Moles/volume] in Serum or Plasma 21.0-31.0 [facility] Chloride [Moles/volume] in S neeru or PlasmaOrdered By: Jaswant Zaidi on 09-06-2024 Chloride [Moles/Vol] Chloride [Moles/volume] in Serum or Plasma 98-107 [facility] Complete Blood Count Auto Di ffon 09-06-2024 Basophils (Bld) [#/Vol] 0.0 10*3/uL Normal 0.0-0.2 [facility] Comment on above: Result Comment: PERF ORMED BY: [place] [address] PATHOLOGIST PRICE LISTER ROXANE TAPIA M.D. Performed By: #### C BC #### [address] Basophils/100 WBC (Bld) 0.7 % Normal . [facility] Comment on above: Performed By: #### C BC #### [address] Eosinophils (Bld) [#/Vol] 0.1 10*3/uL Normal 0.0-0.45 [facility] Comment on above: Performed By: #### C BC #### [address] Eosinophils/100 WBC (Bld) 1.4 % Normal . [facility] Comment on above: Performed By: #### C BC #### [address] Erythrocyte distribution width (RBC) [Ratio] 15.3 % High 12.0-14.8 [facility] Comment on above: Performed By: #### C BC #### [address] Hematocrit (Bld) [Volume fraction] 42.0 % Normal 38.8-50.0 [facility] Comment on above: Performed By: #### C BC #### [address] Hemoglobin (Bld) [Mass/Vol] 14.3 g/dL Normal 13.0-17.0 [facility] Comment on above: Performed By: #### C BC #### [place] [address] [place] Lymphocytes (Bld) [#/Vol] 0.9 10*3/uL Low 1.00-4.8 [facility] Comment on above: Performed By: #### C BC #### [address] Lymphocytes/100 WBC (Bld) 20.4 % Normal . [facility] Comment on above: Performed By: #### C BC #### [address] MCH (RBC) [Entitic mass] 34.0 pg Normal 27.5-35.2 [facility] Comment on above: Performed By: #### C BC #### [address] MCV (RBC) [Entitic vol] 99.9 fL Normal 83.5-101 [facility] Comment on above: Performed By: #### C BC #### [address] Mean Corpuscular HGB Conc 34.0 g/dL Normal 32.5-35.6 [facility] Comment on above: Performed By: #### C BC #### [address] Monocytes (Bld) [#/Vol] 0.3 10*3/uL Normal 0.0-0.8 [facility] Comment on above: Performed By: #### C BC #### [address] Monocytes/100 WBC (Bld) 7.4 % Normal . [facility] Comment on above: Performed By: #### C BC #### [address] Neutrophils (Bld) [#/Vol] 3.2 10*3/uL Normal 1.8-7.7 [facility] Comment on above: Performed By: #### C BC #### [address] Neutrophils/100 WBC (Bld) 70.1 % Normal . [facility] Comment on above: Performed By: #### C BC #### [facility] [address] [place] [address] [place] NRBC% 0.1 /100{WBC} Normal 0-0.5 [facility] Comment on above: Performed By: #### C BC #### [facility] [address] [place] [address] [facility] Platelet mean volume (Bld) [Entitic vol] 7.4 fL Normal 6.6-10.1 [facility] Comment on above: Performed By: #### C BC #### [facility] [address] [place] [address] [place] Platelets (Bld) [#/Vol] 201 10*3/uL Normal 150-450 [facility] Comment on above: Performed By: #### C BC #### [facility] [address] [place] [address] [place] RBC (Bld) [#/Vol] 4.21 10*6/uL Normal 3.90-5.60 [facility] Comment on above: Performed By: #### C BC #### [facility] [address] [place] [id number] [place] WBC (Bld) [#/Vol] 4.5 10*3/uL Normal 4.1-10.5 [facility] Comment on above: Performed By: #### C BC #### [address] Creatinine [Mass/volume] in Serum or PlasmaOrdered By: Jaswant Zaidi on 09-06-2024 Creatinine [Mass/Vol] Creatinine [Mass/volume] in Serum or Plasma Low 0.70-1.30 [facility] ECG 12 lead ECGon 09-06-2024 ECG 12 lead ECG [facility] [address] [place] [address] Electrocardiograph Report Signed Patient: Valente Lucio MR#: [id number] 34 : 1950 Acct:[id number] Age/Sex: 74 / M ADM Date: 09/06/24 Loc: Room: Type: REG CLI Attending Dr: Jaswant Zaidi DO Ordering Provider: Jaswant Zaidi DO Date of Service: 09/06/24 ECG/ECG 12 lead ECG: PST Copies to: Test Reason : Blood Pressure : */* mmHG Vent. 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) Abnormal ECG When compared with ECG of 02-Dec-2023 11:53, Junctional rhythm has replaced Sinus rhythm Nonspecific T wave abnormality now evident in Inferior leads Confirmed by JOSE ARMAS MD ([id number]) on 09/06/2024 12:55:02 PM Referred By: Electronically Signed By: JOSE ARMAS MD Transcribed By: MUS Signed By Jose Armas MD 0 09/06/24 1255 Normal [facility] Eosinophils Auto (Bld) [#/Vo l]Ordered By: Jaswant Zaidi on 09-06-2024 Eosinophils (Bld) [#/Vol] Automated eosinophil count 0.0-0.45 [facility] Eosinophils/100 WBC Auto (Bl d)Ordered By: Jaswant Zaidi on 09-06-2024 Eosinophils/100 WBC (Bld) Automated eosinophil % . [facility] Erythrocyte distribution wid th Auto (RBC) [Ratio]Ordered By: Jaswant Zaidi on 09-06-2024 Erythrocyte distribution width (RBC) [Ratio] Erythrocyte distribution width [Ratio] by Automated count High 12.0-14.8 [facility] Glucose [Mass/volume] in Ser um or PlasmaOrdered By: Jaswant Zaidi on 09-06-2024 Glucose [Mass/Vol] Glucose [Mass/volume] in Serum or Plasma 70-100 [facility] Comment on above: ADA recommended refe rence rangeRandom Glucose Reference Range is dependent on time and content of last meal. Glucose of more than 200 mg/dL in a nonstressed, ambulatory subject supports the diagnosis of Diabetes Mellitus. Hematocrit Auto (Bld) [Volum e fraction]Ordered By: Jaswant Zaidi on 09-06-2024 Hematocrit (Bld) [Volume fraction] Hematocrit [Volume Fraction] of Blood by Automated count 38.8-50.0 [facility] Hemoglobin [Mass/volume] in BloodOrdered By: Jaswant Zaidi on 09-06-2024 Hemoglobin (Bld) [Mass/Vol] Hemoglobin [Mass/volume] in Blood 13.0-17.0 [facility] Leukocytes [#/volume] correc tejal for nucleated erythrocytes in Blood by Automated counOrdered By: Jaswant Zaidi on 09-06-2024 WBC corrected for nucl RBC Auto (Bld) [#/Vol] Leukocytes [#/volume] corrected for nucleated erythrocytes in Blood by Automated coun 4.1-10.5 [facility] Lymphocytes Auto (Bld) [#/Vo l]Ordered By: Jaswant Zaidi on 09-06-2024 Lymphocytes (Bld) [#/Vol] Lymphocytes [#/volume] in Blood by Automated count Low 1.00-4.8 [facility] Lymphocytes/100 WBC Auto (Bl d)Ordered By: Jaswant Zaidi on 09-06-2024 Lymphocytes/100 WBC (Bld) Lymphocytes/100 leukocytes in Blood by Automated count . [facility] MCH Auto (RBC) [Entitic mass ]Ordered By: Jaswant Zaidi on 09-06-2024 MCH (RBC) [Entitic mass] MCH [Entitic ma ss] by Automated count 27.5-35.2 [facility] MCHC Auto (RBC) [Mass/Vol]Or dered By: Jaswant Zaidi on 09-06-2024 MCHC (RBC) [Mass/Vol] MCHC [Mass/volume] by Automated count 32.5-35.6 [facility] MCV Auto (RBC) [Entitic vol] Ordered By: Jaswant Zaidi on 09-06-2024 MCV (RBC) [Entitic vol] MCV [Entitic vol ume] by Automated count 83.5-101 [facility] Monocytes Auto (Bld) [#/Vol] Ordered By: Jaswant Zaidi on 09-06-2024 Monocytes (Bld) [#/Vol] Automated blood monocyte count 0.0-0.8 [facility] Monocytes/100 WBC Auto (Bld) Ordered By: Jaswant Zaidi on 09-06-2024 Monocytes/100 WBC (Bld) Automated monocyte % . [facility] Neutrophils Auto (Bld) [#/Vo l]Ordered By: Jaswant Zaidi on 09-06-2024 Neutrophils (Bld) [#/Vol] Neutrophils [#/volume] in Blood by Automated count 1.8-7.7 [facility] Neutrophils/100 WBC Auto (Bl d)Ordered By: Jaswant Zaidi on 09-06-2024 Neutrophils/100 WBC (Bld) Automated neutrophil % . [facility] No Panel InformationOrdered By: Jaswant Zaidi on 09-06-2024 Estimated GFR (CKD-EPI) > 60.0 mL/Min [facility] Creatinine Clearance (Chem N/A [facility] Nucleated erythrocytes [Pres ence] in Blood by Automated countOrdered By: Jaswant Zaidi on 09-06-2024 Nucleated RBC Auto Ql (Bld) Nucleated erythrocytes [Presence] in Blood by Automated count 0-0.5 [facility] Platelet mean volume Auto (B ld) [Entitic vol]Ordered By: Jaswant Zaidi on 09-06-2024 Platelet mean volume (Bld) [Entitic vol] Platelet mean volume [Entitic volume] in Blood by Automated count 6.6-10.1 [facility] Platelets Auto (Bld) [#/Vol] Ordered By: Jaswant Zaidi on 09-06-2024 Platelets (Bld) [#/Vol] Platelets [#/vol ume] in Blood by Automated count 150-450 [facility] Potassium [Moles/volume] in Serum or PlasmaOrdered By: Jaswant Zaidi on 09-06-2024 Potassium [Moles/Vol] Potassium [Moles/volume] in Serum or Plasma 3.5-5.1 [facility] RBC Auto (Bld) [#/Vol]Ordere d By: Jaswant Zaidi on 09-06-2024 RBC (Bld) [#/Vol] Erythrocytes [#/volume] in Blood by Automated count 3.90-5.60 [facility] Serum or plasma anion gap de terminationOrdered By: Jaswant Zaidi on 09-06-2024 Anion gap [Moles/Vol] Serum or plasma anion gap determination 6.0-15.0 [facility] Sodium [Moles/volume] in Ser um or PlasmaOrdered By: Jaswant Zaidi on 09-06-2024 Sodium [Moles/Vol] Sodium [Moles/volume] in Serum or Plasma 136-145 [facility] Urea nitrogen [Mass/volume] in Serum or PlasmaOrdered By: Jaswant Zaidi on 09-06-2024 Urea nitrogen [Mass/Vol] Urea nitrogen [Mass/volume] in Serum or Plasma 7-25 [facility] WBC Auto (Bld) [#/Vol]Ordere d By: Jaswant Zaidi on 09-06-2024 WBC (Bld) [#/Vol] Leukocytes [#/volume] in Blood by Automated count 4.1-10.5 [facility] FL esophaguson 08-16-2024 FL esophagus [facility] [place] [address] Fluoroscopy Report Signed Patient: Valente Lucio MR#: [id number] 34 : 1950 Acct:[id number] Age/Sex: 74 / M ADM Date: 08/16/24 Loc: XD Room: Type: [facility] Attending Dr: Jaswant Zaidi DO Copies to: Jaswant Zaidi DO Ordering Provider: Jaswant Zaidi DO Date of Service: 08/16/24 FL/FL esophagus: h/o head and neck radiation, dysphagia [place] esophagus 08/16/2024 8:20 AM SIGNS AND SYMPTOMS: 9.661 [id number] h/o head and neck radiation, dysphagia Esophagram PROTOCOL: Fluoroscopic images of the esophagus were obtained after oral gas crystals administration and during administration of barium based contrast material. COMPARISON: None FINDINGS: Swallows of thick barium demonstrates normal passage through the esophagus and gastroesophageal junction. There is a normal mucosal pattern without mucosal thickening, ulceration, mass, or stricture. On lateral projection deep laryngeal penetration and ben aspiration is noted. The exam was terminated at this point with suggestion made for a follow-up modified barium swallow study. Cumulative Air Kerma in mGy: 9.661 mGy FL/FL esophagus IMPRESSION: The esophagus shows normal motility without evidence of mass, stricture, mucosal thickening, or ulceration. On lateral projection deep laryngeal penetration and ben aspiration is noted. The exam was terminated at this point with suggestion made for a follow-up modified barium swallow study. Impression dictated by: Luis Alberto Allen M.D.08/16/2024 10:12 AM Dictation Location: [place] [address] Transcribed By: [facility] 08/16/24 1012 Dictated By: Luis Alberto Allen II, MD 08/16/24 1009 Signed By: 08/16/24 1012 Normal [facility] Fluoroscopy reportOrdered By : Luis Alberto Allen on 08-16-2024 RF Unspecified body region Views [facility] [place] [address] Fluoroscopy Report Signed Patient: Valente Lucio MR#: [id number] : 1950 Acct:[id number] Age/Sex: 74 / M ADM Date: 5 Loc: XD Room: Type: [facility] Attending Dr: Jaswant Zaidi DO Copies to: Jaswant Zaidi DO~ Ordering Provider: Jaswant Zaidi DO Date of Service: 08/16/24 FL/FL esophagus: h/o head and neck radiation, dysphagia [place] esophagus 08/16/2024 8:20 AM SIGNS AND SYMPTOMS: ^9.661 ^[id number] ^h/o head and neck radiation, dysphagia ^Esophagram PROTOCOL: Fluoroscopic images of the esophagus were obtained after oral gas crystals administration and during administration of barium based contrast material. COMPARISON: None FINDINGS: Swallows of thick barium demonstrates normal passage through the esophagus and gastroesophageal junction. There is a normal mucosal pattern without mucosal thickening, ulceration, mass, or stricture. On lateral projection deep laryngeal penetration and ben aspiration is noted. The exam was terminated atthis point with suggestion made for a follow-up modified barium swallow study. Cumulative Air Kerma in mGy: 9.661 mGy FL/FL esophagus IMPRESSION: The esophagus shows normal motility without evidence of mass, stricture, mucosalthickening, or ulceration. On lateral projection deep laryngeal penetration and ben aspiration is noted. The exam was terminated at this point with suggestion made for a follow-up modified barium swallow study. Impression dictated by: Luis Alberto Allen M.D.08/16/2024 10:12 AM Dictation Location: [facility]- Transcribed By: [facility] 08/16/24 1012 Dictated By: Luis Alberto Allen II, MD 08/16/24 1009 Signed By: 08/16/24 1012 [facility] Work Phone: Creatinine (Bld) [Mass/Vol]O rdered By: Nabil Fox on 07-01-2024 Creatinine [Mass/Vol] Whole blood creatinine measurement 0.6-1.3 [facility] Comment on above: ER/ESD physician is notified/shown all ISTAT results.Critical values may be confirmed by laboratory testing ifdeemed necessary by ER attending doctor. ISTAT XRAY CREon 07-01-2024 Creatinine [Mass/Vol] 0.7 mg/dL 0.6 - 1.3 mg/dL [facility] Comment on above: ER/ESD physician is notified/shown all ISTAT results. Critical values may be confirmed by laboratory testing if deemed necessary by ER attending doctor. ISTAT GFR [facility] ISTAT XRay CREon 07-01-2024 Creatinine [Mass/Vol] 0.7 mg/dL Normal 0.6-1.3 [facility] Comment on above: Result Comment: ER/E SD physician is notified/shown all ISTAT results. Critical values may be confirmed by laboratory testing if deemed necessary by ER attending doctor. Performed By: #### I SCRE #### [facility] [address] [place] [address] ISTAT GFR >60.0 Normal [facility] Comment on above: Result Comment: PERF ORMED BY: [place] [address] PATHOLOGIST PRICE LISTER ROXANE TAPIA M.D. Performed By: #### I SCRE #### [facility] [address] [place] [address] MR orbits face neck wo/w con on 07-01-2024 MR orbits face neck wo/w con [facility] [place] [address] MRI Report Signed Patient: Valente Lucio MR#: [id number] 34 : 1950 Acct:[id number] Age/Sex: 73 / M ADM Date: 07/01/24 Loc: XT Room: Type: [facility] RCR Attending Dr: Nabil Fox II DO Copies to: MD Nabil Krishnamurthy II, DO Ordering Provider: Sweetie Mirza MD Date of Service: 07/01/24 MR/MR orbits face neck wo/w con: uptake on PET, right BOT MR orbits face neck wo/w con 07/01/2024 2:31 PM SIGNS AND SYMPTOMS: 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 The soft tissues of the infratemporal fossa fossa structures show no acute abnormality. Mucosal surfaces of the nasopharynx, oropharynx, hypopharynx, glottic, and subglottic airways are grossly unremarkable. The parotid glands, submandibular, and the thyroid gland are within normal limits. The carotid and jugular circulations are within normal limits. There is lack of the normal flow- void within the right vertebral artery suspicious for slow flow or occlusion. The visualized lung parenchyma shows no acute pathology. No acute bony abnormalities are appreciated. There is reactive enhancement within the left C2 and C3 facets which is presumably related to degenerative change. Degenerative changes in the cervical spine with Modic type I endplate edema at C5-C6. Degenerative changes are noted in the shoulders. The skull base, craniocervical junction, atlantoaxial joints are within normal limits. Mild mucosal thickening is noted in the maxillary sinuses. Mucosal thickening is noted in the ethmoid air cells. MR/MR orbits face neck wo/w con IMPRESSION: No evidence of mass, soft tissue swelling, or abnormality enhancement. The previous revision of slightly increased radiotracer accumulation within the oropharynx is not visible on MR. Close clinical observation is recommended short interval with repeat PET imaging is recommended. Impression dictated by: Luis Alberto Allen M.D.07/01/2024 6:14 PM Dictation Location: [facility]-17 Transcribed By: CRISTÓBAL 07/01/241813 Dictated By: Luis Alberto Allen II, MD 07/01/241753 Signed By: 07/01/241813 Normal [facility] No Panel InformationOrdered By: Nabil Fox on 07-01-2024 Bedside Estimated GFR (eGFR) > 60.0 [facility] GLUCOSE POCT GLUCOMETERSon 0 06-25-2024 Glucose [Mass/Vol] 105 mg/dL [facility] Comment on above: Random Glucose Refer ence Range is dependent on time and content of last meal. Glucose of more than 200 mg/dL in a nonstressed, ambulatory subject supports the diagnosis of Diabetes Mellitus. [facility] Glucose Glucometer (BldC) [M ass/Vol]Ordered By: Nabil Fox on 06-25-2024 Glucose [Mass/Vol] Capillary blood glucose measurement by glucometer (mass/volume) [facility] Comment on above: Random Glucose Refer ence Range is dependent on time and content of last meal. Glucose of more than 200 mg/dL in a nonstressed, ambulatory subject supports the diagnosis of Diabetes Mellitus. Glucose Poct Glucometerson 0 06-25-2024 Glucose [Mass/Vol] 105 mg/dL Normal [facility] Comment on above: Result Comment: [place] om Glucose Reference Range is dependent on time and content of last meal. Glucose of more than 200 mg/dL in a nonstressed, ambulatory subject supports the diagnosis of Diabetes Mellitus. PERFORMED BY: [place] [address] PATHOLOGIST PRICE LISTER ROXANE TAPIA M.D. Performed By: #### C WEI, ISREAL #### [address] PET tumor subq tx strat sb-m ton 06-25-2024 PET tumor subq tx strat sb-mt [facility] Main Rea [address] [place] [address] Nuclear Medicine Report Signed Patient: Valente Lucio MR#: [id number] 34 : 1950 Acct:[id number] Age/Sex: 73 / M ADM Date: 06/25/24 Loc: XT Room: Type: [facility] RCR Attending Dr: Nabil Fox II DO Copies to: MD Nabil Krishnamurthy II, DO Ever Muñoz DO Ordering Provider: Sweetie Mirza MD Date of Service: 06/25/24 PET/PET tumor subq tx strat sb-mt: surveillance, post chemo/radiation PET/CT FUSION IMAGING CLINICAL INFORMATION: Hypopharynx malignancy COMPARISON : 12/08/2023 TECHNIQUE: Noncontrasted CT scan from the base of the skull to the upper thigh followed by PET imaging. Multiplanar PET/CT fusion images. The blood sugar is 105mg/dL. The F-18 FDG amount is 11.55mCi. In the region of posterior pharynx at the region of prior uptake related to patient's primary malignancy no longer identified. The abnormal activity in the left parapharyngeal space consisting with metastatic lymph node no longer identified. FDG uptake in the bilateral level 2 levels suggesting local metastatic disease no longer identified. No PET/CT evidence of distal metastatic disease. There is region of hypermetabolism identified in the right portion of the tongue near the base. Component of misregistration may be present. Cannot exclude region of malignancy in this area. No associated mass identified with low dose CT imaging. The maximal SUV value 6.1. Focal hypermetabolism identified and medial to the right mandible in the parapharyngeal region. Corresponds with a level of the pterygoid muscle. May correspond with either activity. May correspond with region of residual disease. PET/PET tumor subq tx strat sb-mt IMPRESSION: Interval resolution of abnormal hypermetabolism in the posterior pharyngeal region in the medial right. Resolution of hypermetabolism Left Pharyngeal lymph node and bilateral level 2 lymph nodes consistent with adequate response to therapy. Increased hypermetabolism identified in the right portion of the tongue near the base. This may correspond with component of misregistration and/or secretions. Site of malignant focus should be excluded. Focal hypermetabolism identified in the right parapharyngeal region. May correspond to muscular activity versus a residual disease. No developing distal hypermetabolic metastatic disease. PRELIMINARY RESULTS: None given Impression dictated by: Ever Muñoz M.D.06/25/2024 3:44 PM Dictation Location: [facility]-16 Transcribed By: [facility] 06/25/24 1544 Dictated By: Ever Muñoz DO 06/25/24 1511 Signed By: 06/25/24 1544 Normal [facility] Alanine aminotransferase [En zymatic activity/volume] in Serum or PlasmaOrdered By: Nabil Fox on 02-18-2024 ALT [Catalytic activity/Vol] 56 U/L [address] Comment on above: Performed By: #### C WEI, CBC #### [facility] [address] [place] [address] [place] ALT [Catalytic activity/Vol] Alanine aminotransferase [Enzymatic activity/volume] in Serum or Plasma [address] Albumin [Mass/volume] in Ser um or Plasma by Bromocresol green (BCG) dye binding methoOrdered By: Nabil Fox on 02-18-2024 Albumin BCG dye [Mass/Vol] 3.3 g/dL Low 3.5-5.7 [facility] Albumin BCG dye [Mass/Vol] Albumin [Mass/volume] in Serum or Plasma by Bromocresol green (BCG) dye binding metho Low 3.5-5.7 [facility] Alkaline phosphatase [Enzyma tic activity/volume] in Serum or PlasmaOrdered By: Nabil Fox on 02-18-2024 ALP [Catalytic activity/Vol] 154 U/L High [address] [place] [address] Comment on above: Performed By: #### C WEI, CBC #### [facility] [address] [place] [address] [place] ALP [Catalytic activity/Vol] Alkaline phosphatase [Enzymatic activity/volume] in Serum or Plasma High [address] [place] [address] Anisocytosis LM Ql (Bld)Orde red By: Nabil Fox on 02-18-2024 Anisocytosis Ql (Bld) Anisocytosis [Presence] in Blood by Light microscopy [facility] Anisocytosis [Presence] in B lood by Light microscopyOrdered By: Nabil Fox on 02-18-2024 Anisocytosis Ql (Bld) Slight Normal [facility] Comment on above: Performed By: #### C REAT, CBC #### [facility] [address] Aspartate aminotransferase [ Enzymatic activity/volume] in Serum or PlasmaOrdered By: Nabil Fox on 02-18-2024 AST [Catalytic activity/Vol] 46 U/L [address] Comment on above: Performed By: #### C REAT, CBC #### [facility] [address] AST [Catalytic activity/Vol] Aspartate aminotransferase [Enzymatic activity/volume] in Serum or Plasma [address] Basophils Auto (Bld) [#/Vol] Ordered By: Nabil Fox on 02-18-2024 Basophils (Bld) [#/Vol] N/A F [facility] Basophils (Bld) [#/Vol] Automated basoph il count [facility] Basophils/100 WBC Auto (Bld) Ordered By: Nabil Fox on 02-18-2024 Basophils/100 WBC (Bld) N/A F [facility] Basophils/100 WBC (Bld) Automated basophil % [facility] Basophils/100 WBC Manual cnt (Bld)Ordered By: Nabil Fox on 02-18-2024 Basophils/100 WBC (Bld) Basophils/100 leukocytes in Blood by Manual count 0-2 [facility] Basophils/100 leukocytes in Blood by Manual countOrdered By: Nabil Fox on 02-18-2024 Basophils/100 WBC (Bld) 2 % Normal 0-2 F [facility] Comment on above: Performed By: #### C REAT, CBC #### [facility] [address] Bilirubin.total [Mass/volume ] in Serum or PlasmaOrdered By: Nabil Fox on 02-18-2024 Bilirubin [Mass/Vol] 0.3 mg/dL Normal 0.3-1.0 [facility] Comment on above: Performed By: #### C REAT, CBC #### [facility] [address] [place] [address] [place] Bilirubin [Mass/Vol] Bilirubin.total [Mass/volume] in Serum or Plasma 0.3-1.0 [facility] Calcium [Mass/volume] in Ser um or PlasmaOrdered By: Nabil Fox on 02-18-2024 Calcium [Mass/Vol] 8.7 mg/dL Normal 8.6-10.3 [facility] Comment on above: Performed By: #### C REAT, CBC #### [facility] [address] [place] [id number] [facility] Calcium [Mass/Vol] Calcium [Mass/volume] in Serum or Plasma 8.6-10.3 [facility] Carbon dioxide, total [Moles /volume] in Serum or PlasmaOrdered By: Nabil Fox on 02-18-2024 CO2 [Moles/Vol] 32.4 mmol/L High 21.0-31.0 [facility] Comment on above: Performed By: #### C REAT, CBC #### [facility] [address] CO2 [Moles/Vol] Carbon dioxide, total [Moles/volume] in Serum or Plasma High 21.0-31.0 [facility] Chloride [Moles/volume] in S neeru or PlasmaOrdered By: Nabil Fox on 02-18-2024 Chloride [Moles/Vol] 98 mmol/L Normal 98-107 [facility] Comment on above: Performed By: #### C REAT, CBC #### [facility] [address] [place] [id number] [place] Chloride [Moles/Vol] Chloride [Moles/volume] in Serum or Plasma 98-107 [facility] Comprehensive Metabolic Pane elizabeth 02-18-2024 Albumin [Mass/Vol] 3.3 g/dL Low 3.5-5.7 [facility] Comment on above: Performed By: #### C REAT, CBC #### [facility] [address] Creatinine Clr Calc Pharmacy 87.45 Normal [facility] Comment on above: Result Comment: PERF ORMED BY: [place] [address] PATHOLOGIST PRICE LISTER TRISTON MELGAR M.D. Performed By: #### C WEI, CBC #### [facility] [address] GFR/1.73 sq M.predicted MDRD (S/P/Bld) [Vol rate/Area] mL/min/{1.73_m2} Normal [facility] Comment on above: Performed By: #### C WEI, CBC #### [address] Comprehensive metabolic pane elizabeth 02-18-2024 Albumin [Mass/Vol] 3.3 g/dL Low 3.5 - 5.7 g/dL [facility] Albumin/Globulin [Mass ratio] 1.3 {ratio} [facility] ALP [Catalytic activity/Vol] 154 U/L High 34 - 104 U/L [facility] ALT [Catalytic activity/Vol] 56 U/L High 7 - 52 U/L [facility] Anion gap [Moles/Vol] 11.2 mmol/L 6.0 - 15.0 [facility] AST [Catalytic activity/Vol] 46 U/L High 13 - 39 U/L [facility] Bilirubin [Mass/Vol] 0.3 mg/dL 0.3 - 1 .0 mg/dL [facility] Calcium [Mass/Vol] 8.7 mg/dL 8.6 - 10. 3 mg/dL [facility] Chloride [Moles/Vol] 98 mmol/L 98 - 10 7 mmol/L [facility] CO2 [Moles/Vol] 32.4 mmol/L High 21.0 - 31.0 mmol/L [facility] Creatinine (U) [Mass/Vol] 0.68 mg/dL Low 0.70 - 1.30 mg/dL [facility]1.73 sq M.predicted MDRD (S/P/Bld) [Vol rate/Area] mL/min/{1.73_m2} [facility] Globulin (S) [Mass/Vol] 2.6 g/dL [facility] Glucose [Mass/Vol] 112 mg/dL High 70 - 100 mg/dL [facility] Comment on above: Random Glucose Refer ence Range is dependent on time and content of last meal. Glucose of more than 200 mg/dL in a nonstressed, ambulatory subject supports the diagnosis of Diabetes Mellitus. ADA recommended reference range Interpretation and review of laboratory results Abnormal [facility] Potassium [Moles/Vol] 4.6 mmol/L 3.5 - 5.1 mmol/L [facility] Protein [Mass/Vol] 5.9 g/dL Low 6.4 - 8.9 g/dL [facility] Sodium [Moles/Vol] 137 mmol/L 136 - 145 mmol/L [facility] Urea nitrogen [Mass/Vol] 16 mg/dL 7 - 25 mg/d L [facility] [place] Creatinine [Mass/volume] in Serum or PlasmaOrdered By: Nabil Fox on 02-18-2024 Creatinine [Mass/Vol] 0.68 mg/dL Low 0.70-1.30 [facility] Comment on above: Performed By: #### C REAT, CBC #### [address] Creatinine [Mass/Vol] Creatinine [Mass/volume] in Serum or Plasma Low 0.70-1.30 [facility] Diff and CBCon 02-18-2024 Giant Platelet Tally 1 /100{WBC} Normal [facility] Comment on above: Performed By: #### C REAT, CBC #### [facility] [address] [place] [address] Mean Corpuscular HGB Conc 33.5 g/dL Normal 32.5-35.6 [facility] Comment on above: Performed By: #### C REAT, CBC #### [facility] [address] Microcytosis Slight Normal [facility] Comment on above: Performed By: #### C REAT, CBC #### [place] [address] [place] Myelocytes 1 % High 0-0 [facility] Comment on above: Performed By: #### C REAT, CBC #### [facility] [address] Platelet Estimate Normal Normal Normal [facility] Comment on above: Performed By: #### C REAT, CBC #### [facility] [address] Platelet Morphology Normal Normal Normal [facility] Comment on above: Result Comment: PERF ORMED BY: [place] [address] PATHOLOGIST PRICE LISTER TRISTON MELGAR M.D. Performed By: #### C REAT, CBC #### [facility] [address] Polychromasia Slight Normal [facility] Comment on above: Performed By: #### C REAT, CBC #### [facility] [address] Reactive Lymphocytes 1 % Normal 0-12 [facility] Comment on above: Performed By: #### C REAT, CBC #### [facility] [address] Eosinophils Auto (Bld) [#/Vo l]Ordered By: Nabil Fox on 02-18-2024 Eosinophils (Bld) [#/Vol] N/A [facility] Eosinophils (Bld) [#/Vol] Automated eosinophil count [facility] Eosinophils/100 WBC Auto (Bl d)Ordered By: Nabil Fox on 02-18-2024 Eosinophils/100 WBC (Bld) N/A [facility] Eosinophils/100 WBC (Bld) Automated eosinophil % [facility] Erythrocyte distribution wid th Auto (RBC) [Ratio]Ordered By: Nabil Fox on 02-18-2024 Erythrocyte distribution width (RBC) [Ratio] Erythrocyte distribution width [Ratio] by Automated count High 12.0-14.8 [facility] Erythrocyte distribution wid th [Ratio] by Automated countOrdered By: Nabil Fox on 02-18-2024 Erythrocyte distribution width (RBC) [Ratio] 17.1 % High 12.0-14.8 [facility] Comment on above: Performed By: #### C RECLAY, CBC #### [facility] [address] Erythrocyte morphology findi ng [Identifier] in BloodOrdered By: Nabil Fox on 02-18-2024 RBC morphology finding Nom (Bld) RBC morphology [facility] Erythrocytes [#/volume] in B lood by Automated countOrdered By: Nabil Fox on 02-18-2024 RBC (Bld) [#/Vol] 3.92 10*6/uL Normal 3.90-5.60 [facility] Comment on above: Performed By: #### C WEI, CBC #### [facility] [address] Giant platelets/100 leukocyt es [Ratio] in Blood by Manual countOrdered By: Nabil Fox on 02-18-2024 Giant platelets/100 WBC Manual cnt (Bld) [Ratio] 1 /100{WBC} [facility] Giant platelets/100 WBC Manual cnt (Bld) [Ratio] Giant platelets/100 leukocytes [Ratio] in Blood by Manual count [facility] Globulin Calc (S) [Mass/Vol] Ordered By: Nabil Fox on 02-18-2024 Globulin (S) [Mass/Vol] Serum globulin measurement by calculation (mass/volume) [facility] Glucose [Mass/volume] in Ser um or PlasmaOrdered By: Nabil Fox on 02-18-2024 Glucose [Mass/Vol] 112 mg/dL High 70-100 [facility] Comment on above: ADA recommended refe rence rangeRandom Glucose Reference Range is dependent on time and content of last meal. Glucose of more than 200 mg/dL in a nonstressed, ambulatory subject supports the diagnosis of Diabetes Mellitus. Result Comment: [place] Glucose Reference Range is dependent on time and content of last meal. Glucose of more than 200 mg/dL in a nonstressed, ambulatory subject supports the diagnosis of Diabetes Mellitus. ADA recommended reference range Performed By: #### C REAT, CBC #### [facility] [address] [place] [address] [place] Glucose [Mass/Vol] Glucose [Mass/volume] in Serum or Plasma High 70-100 [facility] Comment on above: ADA recommended refe rence rangeRandom Glucose Reference Range is dependent on time and content of last meal. Glucose of more than 200 mg/dL in a nonstressed, ambulatory subject supports the diagnosis of Diabetes Mellitus. Hematocrit Auto (Bld) [Volum e fraction]Ordered By: Nabil Fox on 02-18-2024 Hematocrit (Bld) [Volume fraction] Hematocrit [Volume Fraction] of Blood by Automated count Low 38.8-50.0 [facility] Hematocrit [Volume Fraction] of Blood by Automated countOrdered By: Nabil Fox on 02-18-2024 Hematocrit (Bld) [Volume fraction] 36.8 % Low 38.8-50.0 [facility] Comment on above: Performed By: #### C WEI, CBC #### [facility] [address] Hemoglobin [Mass/volume] in BloodOrdered By: Nabil Fox on 02-18-2024 Hemoglobin (Bld) [Mass/Vol] 12.4 g/dL Low 13.0-17.0 [facility] Comment on above: Performed By: #### C WEI, CBC #### [facility] [address] Hemoglobin (Bld) [Mass/Vol] Hemoglobin [Mass/volume] in Blood Low 13.0-17.0 [facility] Leukocytes [#/volume] correc tejal for nucleated erythrocytes in Blood by Automated counOrdered By: Nabil Fox on 02-18-2024 WBC corrected for nucl RBC Auto (Bld) [#/Vol] 6.7 10*3/uL 4.1-10.5 [facility] WBC corrected for nucl RBC Auto (Bld) [#/Vol] Leukocytes [#/volume] corrected for nucleated erythrocytes in Blood by Automated coun 4.1-10.5 [facility] Leukocytes [#/volume] in Blo od by Automated countOrdered By: Nabil Fox on 02-18-2024 WBC (Bld) [#/Vol] 6.7 10*3/uL Normal 4.1-10.5 [facility] Comment on above: Performed By: #### C REAT, CBC #### [facility] [address] [place] [address] Lymphocytes Auto (Bld) [#/Vo l]Ordered By: Nabil Fox on 02-18-2024 Lymphocytes (Bld) [#/Vol] N/A [facility] Lymphocytes (Bld) [#/Vol] Lymphocytes [#/volume] in Blood by Automated count [facility] Lymphocytes/100 WBC Auto (Bl d)Ordered By: Nabil Fox on 02-18-2024 Lymphocytes/100 WBC (Bld) N/A [facility] Lymphocytes/100 WBC (Bld) Lymphocytes/100 leukocytes in Blood by Automated count [facility] Lymphocytes/100 WBC Manual c nt (Bld)Ordered By: Nabil Fox on 02-18-2024 Lymphocytes/100 WBC (Bld) Lymphocytes/100 leukocytes in Blood by Manual count Low 18-42 [facility] Lymphocytes/100 leukocytes i n Blood by Manual countOrdered By: Nabil Fox on 02-18-2024 Lymphocytes/100 WBC (Bld) 9 % Low 18-42 [facility] Comment on above: Performed By: #### C WEI, CBC #### [address] MCH Auto (RBC) [Entitic mass ]Ordered By: Nabil Fox on 02-18-2024 MCH (RBC) [Entitic mass] MCH [Entitic ma ss] by Automated count 27.5-35.2 [facility] MCH [Entitic mass] by Automa tejal countOrdered By: Nabil Fox on 02-18-2024 MCH (RBC) [Entitic mass] 31.5 pg Normal 27.5-35.2 [facility] Comment on above: Performed By: #### C REAT, CBC #### [address] MCHC Auto (RBC) [Mass/Vol]Or dered By: Nabil Fox on 02-18-2024 MCHC (RBC) [Mass/Vol] 33.5 g/dL 32.5-35.6 [facility] MCHC (RBC) [Mass/Vol] MCHC [Mass/volume] by Automated count 32.5-35.6 [facility] MCV Auto (RBC) [Entitic vol] Ordered By: Nabil Fox on 02-18-2024 MCV (RBC) [Entitic vol] MCV [Entitic vol ume] by Automated count 83.5-101 [facility] MCV [Entitic volume] by Auto mated countOrdered By: Nabil Fox on 02-18-2024 MCV (RBC) [Entitic vol] 94.0 fL Normal 83.5-101 F [facility] Comment on above: Performed By: #### C REAT, CBC #### [facility] [address] Manual blood segmented neutr ophils/100 leukocytesOrdered By: Nabil Fox on 02-18-2024 Segmented neutrophils/100 WBC (Bld) 74 % High 50-70 [facility] Comment on above: Performed By: #### C REAT, CBC #### [facility] [address] Microcytes LM Ql (Bld)Ordere d By: Nabil Fox on 02-18-2024 Microcytes Ql (Bld) Slight [facility] Microcytes Ql (Bld) Microcytes [Presence] in Blood by Light microscopy [facility] Monocytes Auto (Bld) [#/Vol] Ordered By: Nabil Fox on 02-18-2024 Monocytes (Bld) [#/Vol] N/A F [facility] Monocytes (Bld) [#/Vol] Automated blood monocyte count [facility] Monocytes/100 WBC Auto (Bld) Ordered By: Nabil Fox on 02-18-2024 Monocytes/100 WBC (Bld) N/A F [facility] Monocytes/100 WBC (Bld) Automated monocyte % [facility] Monocytes/100 WBC Manual cnt (Bld)Ordered By: Nabil Fox on 02-18-2024 Monocytes/100 WBC (Bld) Monocytes/100 leukocytes in Blood by Manual count High 2-11 [facility] Monocytes/100 leukocytes in Blood by Manual countOrdered By: Nabil Fox on 02-18-2024 Monocytes/100 WBC (Bld) 13 % High 2-11 F [facility] Comment on above: Performed By: #### C REAT, CBC #### [address] Myelocytes/100 WBC Manual cn t (Bld)Ordered By: Nabil Fox on 02-18-2024 Myelocytes/100 WBC (Bld) 1 % High 0-0 [facility] Myelocytes/100 WBC (Bld) Myelocytes/100 leukocytes in Blood by Manual count High 0-0 [facility] Neutrophils Auto (Bld) [#/Vo l]Ordered By: Nabil Fox on 02-18-2024 Neutrophils (Bld) [#/Vol] N/A [facility] Neutrophils (Bld) [#/Vol] Neutrophils [#/volume] in Blood by Automated count [facility] Neutrophils/100 WBC Auto (Bl d)Ordered By: Nabil Fox on 02-18-2024 Neutrophils/100 WBC (Bld) N/A [facility] Neutrophils/100 WBC (Bld) Automated neutrophil % [facility] No Panel InformationOrdered By: Nabil Fox on 02-18-2024 Estimated GFR (CKD-EPI) > 60.0 mL/Min [facility] Creatinine Clearance (Chem 87.45 [facility] Nucleated erythrocytes [Pres ence] in Blood by Automated countOrdered By: Nabil Fox on 02-18-2024 Nucleated RBC Auto Ql (Bld) N/A [facility] Nucleated RBC Auto Ql (Bld) Nucleated erythrocytes [Presence] in Blood by Automated count [facility] Platelet adequacy [Presence] in Blood by Light microscopyOrdered By: Nabil Fox on 02-18-2024 Platelets LM Ql (Bld) Normal Normal [facility] Platelets LM Ql (Bld) Platelet adequacy [Presence] in Blood by Light microscopy Normal [facility] Platelet mean volume Auto (B ld) [Entitic vol]Ordered By: Nabil Fox on 02-18-2024 Platelet mean volume (Bld) [Entitic vol] Platelet mean volume [Entitic volume] in Blood by Automated count 6.6-10.1 [facility] Platelet mean volume [Entiti c volume] in Blood by Automated countOrdered By: Nabil Fox on 02-18-2024 Platelet mean volume (Bld) [Entitic vol] 7.4 fL Normal 6.6-10.1 [facility] Comment on above: Result Comment: PERF ORMED BY: [place] [address] PATHOLOGIST PRICE LISTER TRISTON MELGAR M.D. Performed By: #### C WEI, CBC #### [address] Platelet morphology finding [Identifier] in BloodOrdered By: Nabil Fox on 02-18-2024 Platelet morphology finding Nom (Bld) Normal Normal [facility] Platelet morphology finding Nom (Bld) Platelet morphology finding [Identifier] in Blood Normal [facility] Platelets Auto (Bld) [#/Vol] Ordered By: Nabil Fox on 02-18-2024 Platelets (Bld) [#/Vol] Platelets [#/vol ume] in Blood by Automated count 150-450 [facility] Platelets [#/volume] in Bloo d by Automated countOrdered By: Nabil Fox on 02-18-2024 Platelets (Bld) [#/Vol] 435 10*3/uL Normal 150-450 [facility] Comment on above: Performed By: #### C WEI, CBC #### [facility] [address] [place] [address] [place] Polychromasia [Presence] in Blood by Light microscopyOrdered By: Nabil Fox on 02-18-2024 Polychromasia LM Ql (Bld) Slight [facility] Polychromasia LM Ql (Bld) Polychromasia [Presence] in Blood by Light microscopy [facility] Potassium [Moles/volume] in Serum or PlasmaOrdered By: Nabil Fox on 02-18-2024 Potassium [Moles/Vol] 4.6 mmol/L Normal 3.5-5.1 [facility] Comment on above: Performed By: #### C REAT, CBC #### [facility] [address] Potassium [Moles/Vol] Potassium [Moles/volume] in Serum or Plasma 3.5-5.1 [facility] Protein [Mass/volume] in Ser um or PlasmaOrdered By: Nabil Fox on 02-18-2024 Protein [Mass/Vol] 5.9 g/dL Low 6.4-8.9 [facility] Comment on above: Performed By: #### C REAT, CBC #### [facility] [address] Protein [Mass/Vol] Protein [Mass/volume] in Serum or Plasma Low 6.4-8.9 [facility] RBC Auto (Bld) [#/Vol]Ordere d By: Nabil Fox on 02-18-2024 RBC (Bld) [#/Vol] Erythrocytes [#/volume] in Blood by Automated count 3.90-5.60 [facility] RBC morphologyOrdered By: Troy Fox on 02-18-2024 RBC morphology finding Nom (Bld) N/A [facility] Segmented neutrophils/100 WB C Manual cnt (Bld)Ordered By: Nabil Fox on 02-18-2024 Segmented neutrophils/100 WBC (Bld) Manual blood segmented neutrophils/100 leukocytes High 50-70 [facility] Serum globulin measurement b y calculation (mass/volume)Ordered By: Nabil Fox on 02-18-2024 Globulin (S) [Mass/Vol] 2.6 g/dL Normal F [facility] Comment on above: Performed By: #### C REAT, CBC #### [facility] [address] Serum or plasma albumin/glob ulin mass ratioOrdered By: Nabil Fox on 02-18-2024 Albumin/Globulin [Mass ratio] 1.3 {ratio} Normal [facility] Comment on above: Performed By: #### C REAT, CBC #### [facility] [address] [place] [id number] [facility] Albumin/Globulin [Mass ratio] Serum or plasma albumin/globulin mass ratio [facility] Serum or plasma anion gap de terminationOrdered By: Nabil Fox on 02-18-2024 Anion gap [Moles/Vol] 11.2 mmol/L Normal 6.0-15.0 [facility] Comment on above: Performed By: #### C REAT, CBC #### [facility] [address] [place] [address] Anion gap [Moles/Vol] Serum or plasma anion gap determination 6.0-15.0 [facility] Sodium [Moles/volume] in Ser um or PlasmaOrdered By: Nabil Fox on 02-18-2024 Sodium [Moles/Vol] 137 mmol/L Normal 136-145 [facility] Comment on above: Performed By: #### C REAT, CBC #### [facility] [address] [place] [address] Sodium [Moles/Vol] Sodium [Moles/volume] in Serum or Plasma 136-145 [facility] Urea nitrogen [Mass/volume] in Serum or PlasmaOrdered By: Nabil Fox on 02-18-2024 Urea nitrogen [Mass/Vol] 16 mg/dL Normal 01-14 [facility] Comment on above: Performed By: #### C REAT, CBC #### [facility] [address] [place], [place] [id number] [facility] Urea nitrogen [Mass/Vol] Urea nitrogen [Mass/volume] in Serum or Plasma 01-14 [facility] Variant lymphocytes/100 WBC Manual cnt (Bld)Ordered By: Nabil Fox on 02-18-2024 Variant lymphocytes/100 WBC (Bld) 1 % 0 [facility] Variant lymphocytes/100 WBC (Bld) Variant lymphocytes/100 leukocytes in Blood by Manual count [facility] WBC Auto (Bld) [#/Vol]Ordere d By: Nabil Fox on 02-18-2024 WBC (Bld) [#/Vol] Leukocytes [#/volume] in Blood by Automated count 4.1-10.5 [facility] Anisocytosis [Presence] in B lood by Light microscopyOrdered By: Nabil Fox on 01-28-2024 Anisocytosis Ql (Bld) Slight Normal [facility] Comment on above: Performed By: #### S CAN CBC, CREAT #### [address] Automated basophil %Ordered By: Nabil Fox on 01-28-2024 Basophils/100 WBC (Bld) 0.7 % Normal . F [facility] Comment on above: Performed By: #### S CAN CBC, CREAT #### [address] Automated basophil countOrde red By: Nabil Fox on 01-28-2024 Basophils (Bld) [#/Vol] 0.0 10*3/uL Normal 0.0-0.2 [facility] Comment on above: Performed By: #### S CAN CBC, CREAT #### [address] Automated blood monocyte cou ntOrdered By: Nabil Fox on 01-28-2024 Monocytes (Bld) [#/Vol] 0.1 10*3/uL Normal 0.0-0.8 [facility] Comment on above: Performed By: #### S CAN CBC, CREAT #### [address] Automated eosinophil %Ordere d By: Nabil Fox on 01-28-2024 Eosinophils/100 WBC (Bld) 1.2 % Normal . [facility] Comment on above: Performed By: #### S CAN CBC, CREAT #### [address] Automated eosinophil countOr dered By: Nabil Fox on 01-28-2024 Eosinophils (Bld) [#/Vol] 0.0 10*3/uL Normal 0.0-0.45 [facility] Comment on above: Performed By: #### S CAN CBC, CREAT #### [place] [id number] [place] Automated monocyte %Ordered By: Nabil Fox on 01-28-2024 Monocytes/100 WBC (Bld) 5.9 % Normal . [facility] Comment on above: Performed By: #### S CAN CBC, CREAT #### [facility] [address] [place] [address] Automated neutrophil %Ordere d By: Nabil Fox on 01-28-2024 Neutrophils/100 WBC (Bld) 72.7 % Normal . [facility] Comment on above: Performed By: #### S CAN CBC, CREAT #### [address] Blood toxic granulation dete ction by light microscopyOrdered By: Nabil Fox on 01-28-2024 Toxic granules LM Ql (Bld) Moderate [facility] Toxic granules LM Ql (Bld) Blood toxic granulation detection by light microscopy [facility] Creatinineon 01-28-2024 Creatinine Clr Calc Pharmacy 87.45 Normal [facility] Comment on above: Result Comment: PERF ORMED BY: [place] [address] PATHOLOGIST PRICE LISTER TRISTON MELGAR M.D. Performed By: #### S CAN CBC, CREAT #### [place] [address] [place] GFR/1.73 sq M.predicted MDRD (S/P/Bld) [Vol rate/Area] mL/min/{1.73_m2} Normal [facility] Comment on above: Performed By: #### S CAN CBC, CREAT #### [place] [address] [place] Creatinine [Mass/volume] in Serum or PlasmaOrdered By: Nabil Fox on 01-28-2024 Creatinine [Mass/Vol] 0.73 mg/dL Normal 0.70-1.30 [facility] Comment on above: Performed By: #### S CAN CBC, CREAT #### [facility] [address] [place] [address] [place] Dohle bodies detectionOrdere d By: Nabil Fox on 01-28-2024 Dohle body LM Ql (Bld) Slight [facility] Dohle body [Presence] in Blo od by Light microscopyOrdered By: Nabil Fox on 01-28-2024 Dohle body LM Ql (Bld) Dohle bodies detection [facility] Erythrocyte distribution wid th [Ratio] by Automated countOrdered By: Nabil Fox on 01-28-2024 Erythrocyte distribution width (RBC) [Ratio] 14.0 % Normal 12.0-14.8 [facility] Comment on above: Performed By: #### S CAN CBC, CREAT #### [facility] [address] [place] [address] Erythrocytes [#/volume] in B lood by Automated countOrdered By: Nabil Fox on 01-28-2024 RBC (Bld) [#/Vol] 3.77 10*6/uL Low 3.90-5.60 [facility] Comment on above: Performed By: #### S CAN CBC, CREAT #### [facility] [address] [place] [address] Helmet cell detectionOrdered By: Nabil Fox on 01-28-2024 Helmet cells LM Ql (Bld) Slight [facility] Helmet cells [Presence] in B lood by Light microscopyOrdered By: Nabil Fox on 01-28-2024 Helmet cells LM Ql (Bld) Helmet cell detection [facility] Hematocrit [Volume Fraction] of Blood by Automated countOrdered By: Nabil Fox on 01-28-2024 Hematocrit (Bld) [Volume fraction] 35.4 % Low 38.8-50.0 [facility] Comment on above: Performed By: #### S CAN CBC, CREAT #### [facility] [address] [place] [address] Hemoglobin [Mass/volume] in BloodOrdered By: Nabil Fox on 01-28-2024 Hemoglobin (Bld) [Mass/Vol] 12.1 g/dL Low 13.0-17.0 [facility] Comment on above: Performed By: #### S CAN CBC, CREAT #### [address] Leukocytes [#/volume] correc tejal for nucleated erythrocytes in Blood by Automated counOrdered By: Nabil Fox on 01-28-2024 WBC corrected for nucl RBC Auto (Bld) [#/Vol] 1.2 10*3/uL Low 4.1-10.5 [facility] Leukocytes [#/volume] in Blo od by Automated countOrdered By: Nabil Fox on 01-28-2024 WBC (Bld) [#/Vol] 1.2 10*3/uL Low 4.1-10.5 [facility] Comment on above: Performed By: #### S CAN CBC, CREAT #### [facility] [address] [place] [address] Lymphocytes [#/volume] in Bl ood by Automated countOrdered By: Nabil Fox on 01-28-2024 Lymphocytes (Bld) [#/Vol] 0.2 10*3/uL Low 1.00-4.8 [facility] Comment on above: Performed By: #### S CAN CBC, CREAT #### [facility] [address] [place] [address] [place] Lymphocytes/100 leukocytes i n Blood by Automated countOrdered By: Nabil Fox on 01-28-2024 Lymphocytes/100 WBC (Bld) 19.5 % Normal . [facility] Comment on above: Performed By: #### S CAN CBC, CREAT #### [facility] [address] [place] [address] [place] MCH [Entitic mass] by Automa tejal countOrdered By: Nabil Fox on 01-28-2024 MCH (RBC) [Entitic mass] 32.1 pg Normal 27.5-35.2 [facility] Comment on above: Performed By: #### S CAN CBC, CREAT #### [facility] [address] [place] [address] MCHC Auto (RBC) [Mass/Vol]Or dered By: Nabil Fox on 01-28-2024 MCHC (RBC) [Mass/Vol] 34.1 g/dL 32.5-35.6 [facility] MCV [Entitic volume] by Auto mated countOrdered By: Nabil Fox on 01-28-2024 MCV (RBC) [Entitic vol] 94.0 fL Normal 83.5-101 F [facility] Comment on above: Performed By: #### S CAN CBC, CREAT #### [facility] [address] Neutrophils [#/volume] in Bl ood by Automated countOrdered By: Nabil Fox on 01-28-2024 Neutrophils (Bld) [#/Vol] 0.8 10*3/uL Low 1.8-7.7 [facility] Comment on above: Performed By: #### S CAN CBC, CREAT #### [facility] [address] [place] [address] No Panel InformationOrdered By: Nabil Fox on 01-28-2024 Estimated GFR (CKD-EPI) > 60.0 mL/Min [facility] Creatinine Clearance (Chem 87.45 [facility] Nucleated erythrocytes [Pres ence] in Blood by Automated countOrdered By: Nabil Fox on 01-28-2024 Nucleated RBC Auto Ql (Bld) 0.1 /100{WBC} 0-0.5 [facility] Platelet adequacy [Presence] in Blood by Light microscopyOrdered By: Nabil Fox on 01-28-2024 Platelets LM Ql (Bld) Decreased Normal [facility] Platelet mean volume [Entiti c volume] in Blood by Automated countOrdered By: Nabil Fox on 01-28-2024 Platelet mean volume (Bld) [Entitic vol] 7.9 fL Normal 6.6-10.1 [facility] Comment on above: Performed By: #### S CAN CBC, CREAT #### [facility] [address] [place] [address] Platelet morphology finding [Identifier] in BloodOrdered By: Nabil Fox on 01-28-2024 Platelet morphology finding Nom (Bld) Normal Normal [facility] Platelets [#/volume] in Bloo d by Automated countOrdered By: Nabil Fox on 01-28-2024 Platelets (Bld) [#/Vol] 77 10*3/uL Low 150-450 [facility] Comment on above: Performed By: #### S CAN CBC, CREAT #### [facility] [address] Poikilocytosis [Presence] in Blood by Light microscopyOrdered By: Nabil Fox on 01-28-2024 Poikilocytosis LM Ql (Bld) Slight [facility] Poikilocytosis LM Ql (Bld) Poikilocytosis [Presence] in Blood by Light microscopy [facility] RBC morphologyOrdered By: Troy Fox on 01-28-2024 RBC morphology finding Nom (Bld) N/A [facility] Scan and CBCon 01-28-2024 Dohle Bodies Slight Normal [facility] Comment on above: Performed By: #### S CAN CBC, CREAT #### [facility] [address] [place] [address] Helmet Cells Slight Normal [facility] Comment on above: Performed By: #### S CAN CBC, CREAT #### [facility] [address] [place] [address] Mean Corpuscular HGB Conc 34.1 g/dL Normal 32.5-35.6 [facility] Comment on above: Performed By: #### S CAN CBC, CREAT #### [facility] [address] [place] [address] NRBC% 0.1 /100{WBC} Normal 0-0.5 [facility] Comment on above: Performed By: #### S CAN CBC, CREAT #### [facility] [address] [place] [address] [place] Platelet Estimate Decreased Normal Normal [facility] Comment on above: Performed By: #### S CAN CBC, CREAT #### [facility] [address] [place] [address] Platelet Morphology Normal Normal Normal [facility] Comment on above: Result Comment: PERF ORMED BY: [place] [address] PATHOLOGIST PRICE LISTER TRISTON MELGAR M.D. Performed By: #### S CAN CBC, CREAT #### [facility] [address] [place] [address] Poikilocytosis Slight Normal [facility] Comment on above: Performed By: #### S CAN CBC, CREAT #### [facility] [address] [place] [address] Toxic Granulation Moderate Normal [facility] Comment on above: Performed By: #### S CAN CBC, CREAT #### [facility] [address] [place] [address] XR chest 2V*on 01-23-2024 XR chest 2V* [facility] Main Rea [address] [place] [address] XRay Report Signed Patient: Valente Lucio MR#: [id number] 34 : 1950 Acct:[id number] Age/Sex: 73 / M ADM Date: 01/23/24 [...] ABNORMALITY. Impression dictated by: Yandel Thomas Jr., D.O.01/23/2024 2:52 PM Dictation Location: [place] [address] Transcribed By: [facility] 01/23/24 1452 Dictated By: Yandel Thomas Jr, DO 01/23/24 1451 Signed By: 01/23/24 145 Normal [facility] Alanine aminotransferase [En zymatic activity/volume] in Serum or PlasmaOrdered By: Nabil Fox on 01-21-2024 ALT [Catalytic activity/Vol] 10 U/L Normal 7-52 [facility] Comment on above: Order Comment: EDU VIRK JKW Performed By: #### C MP, CBC #### [address] Albumin [Mass/volume] in Ser um or Plasma by Bromocresol green (BCG) dye binding methoOrdered By: Nabil Fox on 01-21-2024 Albumin BCG dye [Mass/Vol] 3.7 g/dL 3.5-5.7 [facility] Alkaline phosphatase [Enzyma tic activity/volume] in Serum or PlasmaOrdered By: Nabil Fox on 01-21-2024 ALP [Catalytic activity/Vol] 84 U/L Normal 34-104 [facility] Comment on above: Order Comment: EDU CastanedaKW Performed By: #### C MP, CBC #### [address] Aspartate aminotransferase [ Enzymatic activity/volume] in Serum or PlasmaOrdered By: Nabil Fox on 01-21-2024 AST [Catalytic activity/Vol] 15 U/L Normal 13-39 [facility] Comment on above: Order Comment: EDU VIRK JKW Performed By: #### C MP, CBC #### [address] Automated basophil %Ordered By: Nabil Fox on 01-21-2024 Basophils/100 WBC (Bld) 0.6 % Normal . [facility] Comment on above: Performed By: #### C MP, CBC #### [address] Automated basophil countOrde red By: Nabil Fox on 01-21-2024 Basophils (Bld) [#/Vol] 0.0 10*3/uL Normal 0.0-0.2 [facility] Comment on above: Result Comment: PERF ORMED BY: [place] [address] PATHOLOGIST PRICE LISTER TRISTON MELGAR M.D. Performed By: #### C MP, CBC #### [address] Automated blood monocyte cou ntOrdered By: Nabil Fox on 01-21-2024 Monocytes (Bld) [#/Vol] 0.3 10*3/uL Normal 0.0-0.8 [facility] Comment on above: Performed By: #### C MP, CBC #### [address] Automated eosinophil %Ordere d By: Nabil Fox on 01-21-2024 Eosinophils/100 WBC (Bld) 1.9 % Normal . [facility] Comment on above: Performed By: #### C MP, CBC #### [address] Automated eosinophil countOr dered By: Nabil Fox on 01-21-2024 Eosinophils (Bld) [#/Vol] 0.0 10*3/uL Normal 0.0-0.45 [facility] Comment on above: Performed By: #### C MP, CBC #### [address] Automated monocyte %Ordered By: Nabil Fox on 01-21-2024 Monocytes/100 WBC (Bld) 11.2 % Normal . [facility] Comment on above: Performed By: #### C MP, CBC #### [address] Automated neutrophil %Ordere d By: Nabil Fox on 01-21-2024 Neutrophils/100 WBC (Bld) 65.1 % Normal . [facility] Comment on above: Performed By: #### C MP, CBC #### [address] Bilirubin.total [Mass/volume ] in Serum or PlasmaOrdered By: Nabil Fox on 01-21-2024 Bilirubin [Mass/Vol] 0.5 mg/dL Normal 0.3-1.0 [facility] Comment on above: Order Comment: FASTI NG. JKW Performed By: #### C MP, CBC #### [facility] [address] [place] [address] [place] Calcium [Mass/volume] in Ser um or PlasmaOrdered By: Nabil Fox on 01-21-2024 Calcium [Mass/Vol] 8.6 mg/dL Normal 8.6-10.3 [facility] Comment on above: Order Comment: FASTI NG. JKW Performed By: #### C MP, CBC #### [address] Carbon dioxide, total [Moles /volume] in Serum or PlasmaOrdered By: Nabil Fox on 01-21-2024 CO2 [Moles/Vol] 28.7 mmol/L Normal 21.0-31.0 [facility] Comment on above: Order Comment: FASTI NG. JKW Performed By: #### C MP, CBC #### [place] [address] [place] Chloride [Moles/volume] in S neeru or PlasmaOrdered By: Nabil Fox on 01-21-2024 Chloride [Moles/Vol] 101 mmol/L Normal 98-107 [facility] Comment on above: Order Comment: FASTI NG. JKW Performed By: #### C MP, CBC #### [address] Complete Blood Count Auto Di ffon 01-21-2024 Mean Corpuscular HGB Conc 33.7 g/dL Normal 32.5-35.6 [facility] Comment on above: Performed By: #### C MP, CBC #### [facility] [address] NRBC% 0.1 /100{WBC} Normal 0-0.5 [facility] Comment on above: Performed By: #### C MP, CBC #### [address] Comprehensive Metabolic Pane elizabeth 01-21-2024 Albumin [Mass/Vol] 3.7 g/dL Normal 3.5-5.7 [facility] Comment on above: Order Comment: FASTI NG. JKW Performed By: #### C MP, CBC #### [address] Creatinine Clr Calc Pharmacy 94.74 Normal [facility] Comment on above: Order Comment: FASTI NG. JKW Result Comment: PERF ORMED BY: [place] [address] PATHOLOGIST PRICE LISTER TRISTON MELGAR M.D. Performed By: #### C MP, CBC #### [address] GFR/1.73 sq M.predicted MDRD (S/P/Bld) [Vol rate/Area] mL/min/{1.73_m2} Normal [facility] Comment on above: Order Comment: FASTI NG. JKW Performed By: #### C MP, CBC #### [address] Creatinine [Mass/volume] in Serum or PlasmaOrdered By: Nabil Fox on 01-21-2024 Creatinine [Mass/Vol] 0.66 mg/dL Low 0.70-1.30 [facility] Comment on above: Order Comment: FASTI NG. JKW Performed By: #### C MP, CBC #### [address] Erythrocyte distribution wid th [Ratio] by Automated countOrdered By: Nabil Fox on 01-21-2024 Erythrocyte distribution width (RBC) [Ratio] 14.3 % Normal 12.0-14.8 [facility] Comment on above: Performed By: #### C MP, CBC #### [address] Erythrocytes [#/volume] in B lood by Automated countOrdered By: Nabil Fox on 01-21-2024 RBC (Bld) [#/Vol] 4.08 10*6/uL Normal 3.90-5.60 [facility] Comment on above: Performed By: #### C MP, CBC #### [facility] [address] [place] [address] [place] Glucose [Mass/volume] in Ser um or PlasmaOrdered By: Nabil Fox on 01-21-2024 Glucose [Mass/Vol] 103 mg/dL High 70-100 [facility] Comment on above: ADA recommended refe rence rangeRandom Glucose Reference Range is dependent on time and content of last meal. Glucose of more than 200 mg/dL in a nonstressed, ambulatory subject supports the diagnosis of Diabetes Mellitus. Order Comment: EDU HENDRICKS. JKW Result Comment: [place] om Glucose Reference Range is dependent on time and content of last meal. Glucose of more than 200 mg/dL in a nonstressed, ambulatory subject supports the diagnosis of Diabetes Mellitus. ADA recommended reference range Performed By: #### C MP, CBC #### [facility] [address] Hematocrit [Volume Fraction] of Blood by Automated countOrdered By: Nabil Fox on 01-21-2024 Hematocrit (Bld) [Volume fraction] 38.1 % Low 38.8-50.0 [facility] Comment on above: Performed By: #### C MP, CBC #### [facility] [address] Hemoglobin [Mass/volume] in BloodOrdered By: Nabil Fox on 01-21-2024 Hemoglobin (Bld) [Mass/Vol] 12.9 g/dL Low 13.0-17.0 [facility] Comment on above: Performed By: #### C MP, CBC #### [facility] [address] Leukocytes [#/volume] correc tejal for nucleated erythrocytes in Blood by Automated counOrdered By: Nabil Fox on 01-21-2024 WBC corrected for nucl RBC Auto (Bld) [#/Vol] 2.5 10*3/uL Low 4.1-10.5 [facility] Leukocytes [#/volume] in Blo od by Automated countOrdered By: Nabil Fox on 01-21-2024 WBC (Bld) [#/Vol] 2.5 10*3/uL Low 4.1-10.5 [facility] Comment on above: Performed By: #### C MP, CBC #### [address] Lymphocytes [#/volume] in Bl ood by Automated countOrdered By: Nabil Fox on 01-21-2024 Lymphocytes (Bld) [#/Vol] 0.5 10*3/uL Low 1.00-4.8 [facility] Comment on above: Performed By: #### C MP, CBC #### [address] Lymphocytes/100 leukocytes i n Blood by Automated countOrdered By: Nabil Fox on 01-21-2024 Lymphocytes/100 WBC (Bld) 21.2 % Normal . [facility] Comment on above: Performed By: #### C MP, CBC #### [address] MCH [Entitic mass] by Automa tejal countOrdered By: Nabil Fox on 01-21-2024 MCH (RBC) [Entitic mass] 31.5 pg Normal 27.5-35.2 [facility] Comment on above: Performed By: #### C MP, CBC #### [address] MCHC Auto (RBC) [Mass/Vol]Or dered By: Nabil Fox on 01-21-2024 MCHC (RBC) [Mass/Vol] 33.7 g/dL 32.5-35.6 [facility] MCV [Entitic volume] by Auto mated countOrdered By: Nabil Fox on 01-21-2024 MCV (RBC) [Entitic vol] 93.4 fL Normal 83.5-101 F [facility] Comment on above: Performed By: #### C MP, CBC #### [place] [address] [place] Neutrophils [#/volume] in Bl ood by Automated countOrdered By: Nabil Fox on 01-21-2024 Neutrophils (Bld) [#/Vol] 1.6 10*3/uL Low 1.8-7.7 [facility] Comment on above: Performed By: #### C MP, CBC #### [address] No Panel InformationOrdered By: Nabil Fox on 01-21-2024 Estimated GFR (CKD-EPI) > 60.0 mL/Min [facility] Creatinine Clearance (Chem 94.74 [facility] Nucleated erythrocytes [Pres ence] in Blood by Automated countOrdered By: Nabil Fxo on 01-21-2024 Nucleated RBC Auto Ql (Bld) 0.1 /100{WBC} 0-0.5 [facility] Platelet mean volume [Entiti c volume] in Blood by Automated countOrdered By: Nabil Fox on 01-21-2024 Platelet mean volume (Bld) [Entitic vol] 8.1 fL Normal 6.6-10.1 [facility] Comment on above: Performed By: #### C MP, CBC #### [address] Platelets [#/volume] in Bloo d by Automated countOrdered By: Nabil Fox on 01-21-2024 Platelets (Bld) [#/Vol] 139 10*3/uL Low 150-450 [facility] Comment on above: Performed By: #### C MP, CBC #### [place] [address] [place] Potassium [Moles/volume] in Serum or PlasmaOrdered By: Nabil Fox on 01-21-2024 Potassium [Moles/Vol] 4.8 mmol/L Normal 3.5-5.1 [facility] Comment on above: Order Comment: EDU RICHARDSONW Performed By: #### C MP, CBC #### [place] [address] [place] Protein [Mass/volume] in Ser um or PlasmaOrdered By: Nabil Fox on 01-21-2024 Protein [Mass/Vol] 6.0 g/dL Low 6.4-8.9 [facility] Comment on above: Order Comment: FASTI NG. JKW Performed By: #### C MP, CBC #### [address] Serum globulin measurement b y calculation (mass/volume)Ordered By: Nabil Fox on 01-21-2024 Globulin (S) [Mass/Vol] 2.3 g/dL Normal [facility] Comment on above: Order Comment: FASTI NG. JKW Performed By: #### C MP, CBC #### [address] Serum or plasma albumin/glob ulin mass ratioOrdered By: Nabil Fox on 01-21-2024 Albumin/Globulin [Mass ratio] 1.6 {ratio} Normal [facility] Comment on above: Order Comment: FASTI NG. JKW Performed By: #### C MP, CBC #### [address] Serum or plasma anion gap de terminationOrdered By: Nabil Fox on 01-21-2024 Anion gap [Moles/Vol] 11.1 mmol/L Normal 6.0-15.0 [facility] Comment on above: Order Comment: FASTI NG. JKW Performed By: #### C DOUG, CBC #### [address] Sodium [Moles/volume] in Ser um or PlasmaOrdered By: Nabil Fox on 01-21-2024 Sodium [Moles/Vol] 136 mmol/L Normal 136-145 [facility] Comment on above: Order Comment: FASTI NG. JKW Performed By: #### C MP, CBC #### [address] Urea nitrogen [Mass/volume] in Serum or PlasmaOrdered By: Nabil Fox on 01-21-2024 Urea nitrogen [Mass/Vol] 22 mg/dL Normal 7-25 [facility] Comment on above: Order Comment: FASTI NG. JKW Performed By: #### C MP, CBC #### [address] Automated basophil %Ordered By: Nabil Fox on 01-14-2024 Basophils/100 WBC (Bld) 0.6 % Normal . [facility] Comment on above: Performed By: #### C REAT, CBC #### [address] Automated basophil countOrde red By: Nabil Fox on 01-14-2024 Basophils (Bld) [#/Vol] 0.0 10*3/uL Normal 0.0-0.2 [facility] Comment on above: Result Comment: PERF ORMED BY: [place] [address] PATHOLOGIST PRICE LISTER TRISTON MELGAR M.D. Performed By: #### C REAT, CBC #### [address] Automated blood monocyte cou ntOrdered By: Nabil Fox on 01-14-2024 Monocytes (Bld) [#/Vol] 0.1 10*3/uL Normal 0.0-0.8 [facility] Comment on above: Performed By: #### C REAT, CBC #### [address] Automated eosinophil %Ordere d By: Nabil Fox on 01-14-2024 Eosinophils/100 WBC (Bld) 4.0 % Normal . [facility] Comment on above: Performed By: #### C REAT, CBC #### [address] Automated eosinophil countOr dered By: Nabil Fox on 01-14-2024 Eosinophils (Bld) [#/Vol] 0.1 10*3/uL Normal 0.0-0.45 [facility] Comment on above: Performed By: #### C REAT, CBC #### [address] Automated monocyte %Ordered By: Nabil Fox on 01-14-2024 Monocytes/100 WBC (Bld) 3.8 % Normal . [facility] Comment on above: Performed By: #### C REAT, CBC #### [address] Automated neutrophil %Ordere d By: Nabil Fox on 01-14-2024 Neutrophils/100 WBC (Bld) 68.5 % Normal . [facility] Comment on above: Performed By: #### C REAT, CBC #### [address] Complete Blood Count Auto Di ffon 01-14-2024 Mean Corpuscular HGB Conc 33.9 g/dL Normal 32.5-35.6 [facility] Comment on above: Performed By: #### C REAT, CBC #### [address] NRBC% 0.2 /100{WBC} Normal 0-0.5 [facility] Comment on above: Performed By: #### C REAT, CBC #### [place] [address] [place] Creatinineon 01-14-2024 Creatinine Clr Calc Pharmacy 94.85 Normal [facility] Comment on above: Result Comment: PERF ORMED BY: [place] [address] PATHOLOGIST PRICE LISTER TRISTON MELGAR M.D. Performed By: #### C REAT, CBC #### [place] [address] [place] GFR/1.73 sq M.predicted MDRD (S/P/Bld) [Vol rate/Area] mL/min/{1.73_m2} Normal [facility] Comment on above: Performed By: #### C REAT, CBC #### [place] [address] [place] Creatinine [Mass/volume] in Serum or PlasmaOrdered By: Nabil Fox on 01-14-2024 Creatinine [Mass/Vol] 0.65 mg/dL Low 0.70-1.30 [facility] Comment on above: Performed By: #### C RECLAY, CBC #### [address] Erythrocyte distribution wid th [Ratio] by Automated countOrdered By: Nabil Fox on 01-14-2024 Erythrocyte distribution width (RBC) [Ratio] 14.0 % Normal 12.0-14.8 [facility] Comment on above: Performed By: #### C REAT, CBC #### [address] Erythrocytes [#/volume] in B lood by Automated countOrdered By: Nabil Fox on 01-14-2024 RBC (Bld) [#/Vol] 4.18 10*6/uL Normal 3.90-5.60 [facility] Comment on above: Performed By: #### C WEI, CBC #### [address] Hematocrit [Volume Fraction] of Blood by Automated countOrdered By: Nabil Fox on 01-14-2024 Hematocrit (Bld) [Volume fraction] 39.3 % Normal 38.8-50.0 [facility] Comment on above: Performed By: #### C WEI, CBC #### [address] Hemoglobin [Mass/volume] in BloodOrdered By: Nabil Fox on 01-14-2024 Hemoglobin (Bld) [Mass/Vol] 13.3 g/dL Normal 13.0-17.0 [facility] Comment on above: Performed By: #### C WEI, CBC #### [address] Leukocytes [#/volume] correc tejal for nucleated erythrocytes in Blood by Automated counOrdered By: Nabil Fox on 01-14-2024 WBC corrected for nucl RBC Auto (Bld) [#/Vol] 3.4 10*3/uL Low 4.1-10.5 [facility] Leukocytes [#/volume] in Blo od by Automated countOrdered By: Nabil Fox on 01-14-2024 WBC (Bld) [#/Vol] 3.4 10*3/uL Low 4.1-10.5 [facility] Comment on above: Performed By: #### C REAT, CBC #### [address] Lymphocytes [#/volume] in Bl ood by Automated countOrdered By: Nabil Fox on 01-14-2024 Lymphocytes (Bld) [#/Vol] 0.8 10*3/uL Low 1.00-4.8 [facility] Comment on above: Performed By: #### C REAT, CBC #### [address] Lymphocytes/100 leukocytes i n Blood by Automated countOrdered By: Nabil Fox on 01-14-2024 Lymphocytes/100 WBC (Bld) 23.1 % Normal . [facility] Comment on above: Performed By: #### C REAT, CBC #### [address] MCH [Entitic mass] by Automa tejal countOrdered By: Nabil Fox on 01-14-2024 MCH (RBC) [Entitic mass] 31.8 pg Normal 27.5-35.2 [facility] Comment on above: Performed By: #### C REAT, CBC #### [address] MCHC Auto (RBC) [Mass/Vol]Or dered By: Nabil Fox on 01-14-2024 MCHC (RBC) [Mass/Vol] 33.9 g/dL 32.5-35.6 [facility] MCV [Entitic volume] by Auto mated countOrdered By: Nabil Fox on 01-14-2024 MCV (RBC) [Entitic vol] 93.9 fL Normal 83.5-101 F [facility] Comment on above: Performed By: #### C REAT, CBC #### [address] Neutrophils [#/volume] in Bl ood by Automated countOrdered By: Nabil Fox on 01-14-2024 Neutrophils (Bld) [#/Vol] 2.3 10*3/uL Normal 1.8-7.7 [facility] Comment on above: Performed By: #### C WEI, CBC #### [address] No Panel InformationOrdered By: Nabil Fox on 01-14-2024 Estimated GFR (CKD-EPI) > 60.0 mL/Min [facility] Creatinine Clearance (Chem 94.85 [facility] Nucleated erythrocytes [Pres ence] in Blood by Automated countOrdered By: Nabil Fox on 01-14-2024 Nucleated RBC Auto Ql (Bld) 0.2 /100{WBC} 0-0.5 [facility] Platelet mean volume [Entiti c volume] in Blood by Automated countOrdered By: Nabil Fox on 01-14-2024 Platelet mean volume (Bld) [Entitic vol] 8.6 fL Normal 6.6-10.1 [facility] Comment on above: Performed By: #### C WEI, CBC #### [facility] [address] [place] [address] Platelets [#/volume] in Bloo d by Automated countOrdered By: Nabil Fox on 01-14-2024 Platelets (Bld) [#/Vol] 174 10*3/uL Normal 150-450 [facility] Comment on above: Performed By: #### C WEI, CBC #### [address] Automated basophil %Ordered By: Nabil Fox on 01-07-2024 Basophils/100 WBC (Bld) 0.8 % Normal . [facility] Comment on above: Performed By: #### C REAT, CBC #### [address] Automated basophil countOrde red By: Nabil Fox on 01-07-2024 Basophils (Bld) [#/Vol] 0.0 10*3/uL Normal 0.0-0.2 [facility] Comment on above: Result Comment: PERF ORMED BY: [place] [address] PATHOLOGIST PRICE LISTER TRISTON MELGAR M.D. Performed By: #### C REAT, CBC #### [address] Automated blood monocyte cou ntOrdered By: Nabil Fox on 01-07-2024 Monocytes (Bld) [#/Vol] 0.2 10*3/uL Normal 0.0-0.8 [facility] Comment on above: Performed By: #### C REAT, CBC #### [address] Automated eosinophil %Ordere d By: Nabil Fox on 01-07-2024 Eosinophils/100 WBC (Bld) 5.1 % Normal . [facility] Comment on above: Performed By: #### C REAT, CBC #### [address] Automated eosinophil countOr dered By: Nabil Fox on 01-07-2024 Eosinophils (Bld) [#/Vol] 0.3 10*3/uL Normal 0.0-0.45 [facility] Comment on above: Performed By: #### C REAT, CBC #### [address] Automated monocyte %Ordered By: Nabil Fox on 01-07-2024 Monocytes/100 WBC (Bld) 2.7 % Normal . [facility] Comment on above: Performed By: #### C REAT, CBC #### [address] Automated neutrophil %Ordere d By: Nabil Fox on 01-07-2024 Neutrophils/100 WBC (Bld) 68.2 % Normal . [facility] Comment on above: Performed By: #### C REAT, CBC #### [address] Complete Blood Count Auto Di ffon 01-07-2024 Mean Corpuscular HGB Conc 34.0 g/dL Normal 32.5-35.6 [facility] Comment on above: Performed By: #### C REAT, CBC #### [address] NRBC% 0.1 /100{WBC} Normal 0-0.5 [facility] Comment on above: Performed By: #### C REAT, CBC #### [address] Creatinineon 01-07-2024 Creatinine Clr Calc Pharmacy 95.37 Normal [facility] Comment on above: Result Comment: PERF ORMED BY: [place] [address] PATHOLOGIST PRICE LISTER TRISTON MELGAR M.D. Performed By: #### C REAT, CBC #### [address] GFR/1.73 sq M.predicted MDRD (S/P/Bld) [Vol rate/Area] mL/min/{1.73_m2} Normal [facility] Comment on above: Performed By: #### C REAT, CBC #### [address] Creatinine [Mass/volume] in Serum or PlasmaOrdered By: Nabil Fox on 01-07-2024 Creatinine [Mass/Vol] 0.64 mg/dL Low 0.70-1.30 [facility] Comment on above: Performed By: #### C REAT, CBC #### [address] Erythrocyte distribution wid th [Ratio] by Automated countOrdered By: Nabil Fox on 01-07-2024 Erythrocyte distribution width (RBC) [Ratio] 14.5 % Normal 12.0-14.8 [facility] Comment on above: Performed By: #### C REAT, CBC #### [address] Erythrocytes [#/volume] in B lood by Automated countOrdered By: Nabil Fox on 01-07-2024 RBC (Bld) [#/Vol] 4.32 10*6/uL Normal 3.90-5.60 [facility] Comment on above: Performed By: #### C REAT, CBC #### [facility] [address] Hematocrit [Volume Fraction] of Blood by Automated countOrdered By: Nabil Fox on 01-07-2024 Hematocrit (Bld) [Volume fraction] 40.7 % Normal 38.8-50.0 [facility] Comment on above: Performed By: #### C SAIDAAT, CBC #### [address] Hemoglobin [Mass/volume] in BloodOrdered By: Nabil Fox on 01-07-2024 Hemoglobin (Bld) [Mass/Vol] 13.9 g/dL Normal 13.0-17.0 [facility] Comment on above: Performed By: #### C REAT, CBC #### [address] Leukocytes [#/volume] correc tejal for nucleated erythrocytes in Blood by Automated counOrdered By: Nabil Fox on 01-07-2024 WBC corrected for nucl RBC Auto (Bld) [#/Vol] 5.9 10*3/uL 4.1-10.5 [facility] Leukocytes [#/volume] in Blo od by Automated countOrdered By: Nabil Fox on 01-07-2024 WBC (Bld) [#/Vol] 5.9 10*3/uL Normal 4.1-10.5 [facility] Comment on above: Performed By: #### C WEI, CBC #### [place] [address] [place] Lymphocytes [#/volume] in Bl ood by Automated countOrdered By: Nabil Fox on 01-07-2024 Lymphocytes (Bld) [#/Vol] 1.4 10*3/uL Normal 1.00-4.8 [facility] Comment on above: Performed By: #### C REAT, CBC #### [address] Lymphocytes/100 leukocytes i n Blood by Automated countOrdered By: Nabil Fox on 01-07-2024 Lymphocytes/100 WBC (Bld) 23.2 % Normal . [facility] Comment on above: Performed By: #### C REAT, CBC #### [address] MCH [Entitic mass] by Automa tejal countOrdered By: Nabil Fox on 01-07-2024 MCH (RBC) [Entitic mass] 32.1 pg Normal 27.5-35.2 [facility] Comment on above: Performed By: #### C REAT, CBC #### [address] MCHC Auto (RBC) [Mass/Vol]Or dered By: Nabil Fox on 01-07-2024 MCHC (RBC) [Mass/Vol] 34.0 g/dL 32.5-35.6 [facility] MCV [Entitic volume] by Auto mated countOrdered By: Nabil Fox on 01-07-2024 MCV (RBC) [Entitic vol] 94.4 fL Normal 83.5-101 F [facility] Comment on above: Performed By: #### C WEI, CBC #### [address] Neutrophils [#/volume] in Bl ood by Automated countOrdered By: Nabil Fox on 01-07-2024 Neutrophils (Bld) [#/Vol] 4.0 10*3/uL Normal 1.8-7.7 [facility] Comment on above: Performed By: #### C WEI, CBC #### [address] No Panel InformationOrdered By: Nabil Fox on 01-07-2024 Estimated GFR (CKD-EPI) > 60.0 mL/Min [facility] Creatinine Clearance (Chem 95.37 [facility] Nucleated erythrocytes [Pres ence] in Blood by Automated countOrdered By: Nabil Fox on 01-07-2024 Nucleated RBC Auto Ql (Bld) 0.1 /100{WBC} 0-0.5 [facility] Platelet mean volume [Entiti c volume] in Blood by Automated countOrdered By: Nabil Fox on 01-07-2024 Platelet mean volume (Bld) [Entitic vol] 8.7 fL Normal 6.6-10.1 [facility] Comment on above: Performed By: #### C REAT, CBC #### [facility] [address] Platelets [#/volume] in Bloo d by Automated countOrdered By: Nabil Fox on 01-07-2024 Platelets (Bld) [#/Vol] 206 10*3/uL Normal 150-450 [facility] Comment on above: Performed By: #### C REAT, CBC #### [facility] [address] Basophils Auto (Bld) [#/Vol] on 12-31-2023 Basophils (Bld) [#/Vol] 0.0 10 3/uL 0.0-0.1 [facility] Basophils/100 WBC Auto (Bld) on 12-31-2023 Basophils/100 WBC (Bld) 0.5 % 0.2-2.0 [facility] Eosinophils/100 WBC Auto (Bl d)on 12-31-2023 Eosinophils/100 WBC (Bld) 2.7 % 0.9-7.0 [facility] Erythrocyte distribution wid th Auto (RBC) [Ratio]on 12-31-2023 Erythrocyte distribution width (RBC) [Ratio] 14.1 % 11.0-15.0 [facility] Estimated glomerular filtrat ion rate (GFR) non- Americanon 12-31-2023 GFR/1.73 sq M.predicted among non-blacks MDRD (S/P/Bld) [Vol rate/Area] mL/min/{1.73_m2} >=60 [facility] Globulin Calc (S) [Mass/Vol] on 12-31-2023 Globulin (S) [Mass/Vol] 3.8 g/dL F [facility] Hematocrit Auto (Bld) [Volum e fraction]on 12-31-2023 Hematocrit (Bld) [Volume fraction] 43.8 % 42.0-54.0 [facility] Hemoglobin [Mass/volume] in Bloodon 12-31-2023 Hemoglobin (Bld) [Mass/Vol] 14.4 g/dL 14.0-18.0 [facility] Laboratory - Chemistry and C hemistry - challengeon 12-31-2023 Albumin [Mass/Vol] 3.3 g/dL Low 3.4-5.0 [facility] ALP [Catalytic activity/Vol] 139 U/L High 46-116 [facility] ALT [Catalytic activity/Vol] 24 U/L 16-63 [facility] AST [Catalytic activity/Vol] 26 U/L 15-37 [facility] Bilirubin [Mass/Vol] 0.5 mg/dL 0.2-1.0 [facility] Calcium [Mass/Vol] 8.8 mg/dL 8.5-10.1 [facility] Chloride [Moles/Vol] 106 mmol/L 98-107 [facility] CO2 [Moles/Vol] 26.3 mmol/L 21.0-32.0 [facility] Creatinine [Mass/Vol] 0.75 mg/dL 0.70-1.30 [facility] GFR/1.73 sq M.predicted MDRD (S/P/Bld) [Vol rate/Area] mL/min/{1.73_m2} >=60 [facility] Glucose [Mass/Vol] 105 mg/dL 74-106 [facility] Potassium [Moles/Vol] 3.8 mmol/L 3.5-5.1 [facility] Protein [Mass/Vol] 7.1 g/dL 6.4-8.2 [facility] Sodium [Moles/Vol] 139 mmol/L 136-145 [facility] Urea nitrogen [Mass/Vol] 15.0 mg/dL 7.0-18.0 [facility] Urea nitrogen/Creatinine [Mass ratio] 20.0 mg/mg [facility] Laboratory - Hematology and Cell countson 12-31-2023 Immature granulocytes/100 WBC (Bld) 0.3 % 0.0-0.5 [facility] Leukocytes [#/volume] correc tejal for nucleated erythrocytes in Blood by Automated counon 12-31-2023 WBC corrected for nucl RBC Auto (Bld) [#/Vol] 7.8 10 3/uL 4.0-11.0 [facility] Lymphocytes Auto (Bld) [#/Vo l]on 12-31-2023 Lymphocytes (Bld) [#/Vol] 1.9 10 3/uL 1.2-3.8 [facility] Lymphocytes/100 WBC Auto (Bl d)on 12-31-2023 Lymphocytes/100 WBC (Bld) 24.6 % 20.5-60.0 [facility] MCH Auto (RBC) [Entitic mass ]on 12-31-2023 MCH (RBC) [Entitic mass] 31.4 pg 25.9-34.0 [facility] MCHC Auto (RBC) [Mass/Vol]on 12-31-2023 MCHC (RBC) [Mass/Vol] 32.9 g/dL 29.9-35.2 [facility] MCV Auto (RBC) [Entitic vol] on 12-31-2023 MCV (RBC) [Entitic vol] 95.4 fL High 80.0-94.0 [facility] Monocytes Auto (Bld) [#/Vol] on 12-31-2023 Monocytes (Bld) [#/Vol] 0.6 10 3/uL 0.3-0.8 [facility] Monocytes/100 WBC Auto (Bld) on 12-31-2023 Monocytes/100 WBC (Bld) 7.6 % 1.7-12.0 [facility] Neutrophils Auto (Bld) [#/Vo l]on 12-31-2023 Neutrophils (Bld) [#/Vol] 5.0 10 3/uL 1.4-6.5 [facility] Neutrophils/100 WBC Auto (Bl d)on 12-31-2023 Neutrophils/100 WBC (Bld) 64.3 % 43.0-75.0 [facility] No Panel Informationon 12-30 Eosinophils # (Auto) 0.2 10 3/uL 0.0-0.7 [facility] Immature Granulocyte # (Auto) 0.02 10 3/uL 0.00-0.03 [facility] Platelet mean volume Auto (B ld) [Entitic vol]on 12-31-2023 Platelet mean volume (Bld) [Entitic vol] 9.7 fL 9.5-13.5 [facility] Platelets Auto (Bld) [#/Vol] on 12-31-2023 Platelets (Bld) [#/Vol] 263 10 3/uL 150-450 [facility] RBC Auto (Bld) [#/Vol]on RBC (Bld) [#/Vol] 4.59 10 6/uL Low 4.70-6.10 [facility] Serum or plasma albumin/glob ulin mass ratioon 12-31-2023 Albumin/Globulin [Mass ratio] 0.9 {ratio} [facility] Serum or plasma anion gap de terminationon 12-31-2023 Anion gap [Moles/Vol] 10.5 mmol/L [facility] Glucose Glucometer (dC) [M ass/Vol]Ordered By: Jaswant Zaidi on 12-08-2023 Glucose [Mass/Vol] 80 mg/dL [facility] Comment on above: Random Glucose Refer ence Range is dependent on time and content of last meal. Glucose of more than 200 mg/dL in a nonstressed, ambulatory subject supports the diagnosis of Diabetes Mellitus. Basophils Auto (Bld) [#/Vol] Ordered By: Jaswant Zaidi on 12-02-2023 Basophils (Bld) [#/Vol] 0.1 10*3/uL 0.0-0.2 [facility] Basophils/100 WBC Auto (Bld) Ordered By: Jaswant Zaidi on 12-02-2023 Basophils/100 WBC (Bld) 0.6 % . [facility] Calcium [Mass/volume] in Ser um or PlasmaOrdered By: Jaswant Zaidi on 12-02-2023 Calcium [Mass/Vol] 8.8 mg/dL 8.6-10.3 [facility] Carbon dioxide, total [Moles /volume] in Serum or PlasmaOrdered By: Jaswant Zaidi on 12-02-2023 CO2 [Moles/Vol] 28.3 mmol/L 21.0-31.0 [facility] Chloride [Moles/volume] in S neeru or PlasmaOrdered By: Jaswant Zaidi on 12-02-2023 Chloride [Moles/Vol] 103 mmol/L 98-107 [facility] Creatinine [Mass/volume] in Serum or PlasmaOrdered By: Jaswant Zaidi on 12-02-2023 Creatinine [Mass/Vol] 0.90 mg/dL 0.70-1.30 [facility] Eosinophils Auto (Bld) [#/Vo l]Ordered By: Jaswant Zaidi on 12-02-2023 Eosinophils (Bld) [#/Vol] 0.2 10*3/uL 0.0-0.45 [facility] Eosinophils/100 WBC Auto (Bl d)Ordered By: Jaswant Zaidi on 12-02-2023 Eosinophils/100 WBC (Bld) 1.9 % . [facility] Erythrocyte distribution wid th Auto (RBC) [Ratio]Ordered By: Jaswant Zaidi on 12-02-2023 Erythrocyte distribution width (RBC) [Ratio] 13.9 % 12.0-14.8 [facility] Glucose [Mass/volume] in Ser um or PlasmaOrdered By: Jaswant Zaidi on 12-02-2023 Glucose [Mass/Vol] 81 mg/dL 70-100 [facility] Comment on above: ADA recommended refe rence rangeRandom Glucose Reference Range is dependent on time and content of last meal. Glucose of more than 200 mg/dL in a nonstressed, ambulatory subject supports the diagnosis of Diabetes Mellitus. Hematocrit Auto (Bld) [Volum e fraction]Ordered By: Jaswant Zaidi on 12-02-2023 Hematocrit (Bld) [Volume fraction] 42.2 % 38.8-50.0 [facility] Hemoglobin [Mass/volume] in BloodOrdered By: Jaswant Zaidi on 12-02-2023 Hemoglobin (Bld) [Mass/Vol] 14.1 g/dL 13.0-17.0 [facility] Leukocytes [#/volume] correc tejal for nucleated erythrocytes in Blood by Automated counOrdered By: Jaswant Zaidi on 12-02-2023 WBC corrected for nucl RBC Auto (Bld) [#/Vol] 9.3 10*3/uL 4.1-10.5 [facility] Lymphocytes Auto (Bld) [#/Vo l]Ordered By: Jaswant Zaidi on 12-02-2023 Lymphocytes (Bld) [#/Vol] 1.8 10*3/uL 1.00-4.8 [facility] Lymphocytes/100 WBC Auto (Bl d)Ordered By: Jaswant Zaidi on 12-02-2023 Lymphocytes/100 WBC (Bld) 19.5 % . [facility] MCH Auto (RBC) [Entitic mass ]Ordered By: Jaswant Zaidi on 12-02-2023 MCH (RBC) [Entitic mass] 31.6 pg 27.5-35.2 [facility] MCHC Auto (RBC) [Mass/Vol]Or dered By: Jaswant Zaidi on 12-02-2023 MCHC (RBC) [Mass/Vol] 33.4 g/dL 32.5-35.6 [facility] MCV Auto (RBC) [Entitic vol] Ordered By: Jaswant Zaidi on 12-02-2023 MCV (RBC) [Entitic vol] 94.7 fL 83.5-101 [facility] Monocytes Auto (Bld) [#/Vol] Ordered By: Jaswant Zaidi on 12-02-2023 Monocytes (Bld) [#/Vol] 0.7 10*3/uL 0.0-0.8 [facility] Monocytes/100 WBC Auto (Bld) Ordered By: Jaswant Zaidi on 12-02-2023 Monocytes/100 WBC (Bld) 7.1 % . F [facility] Neutrophils Auto (Bld) [#/Vo l]Ordered By: Jaswant Zaidi on 12-02-2023 Neutrophils (Bld) [#/Vol] 6.6 10*3/uL 1.8-7.7 [facility] Neutrophils/100 WBC Auto (Bl d)Ordered By: Jaswant Zaidi on 12-02-2023 Neutrophils/100 WBC (Bld) 70.9 % . [facility] No Panel InformationOrdered By: Jaswant Zaidi on 12-02-2023 Estimated GFR (CKD-EPI) > 60.0 mL/Min [facility] Creatinine Clearance (Chem N/A [facility] Nucleated erythrocytes [Pres ence] in Blood by Automated countOrdered By: Jaswant Zaidi on 12-02-2023 Nucleated RBC Auto Ql (Bld) 0.0 /100{WBC} 0-0.5 [facility] Platelet mean volume Auto (B ld) [Entitic vol]Ordered By: Jaswant Zaidi on 12-02-2023 Platelet mean volume (Bld) [Entitic vol] 8.4 fL 6.6-10.1 [facility] Platelets Auto (Bld) [#/Vol] Ordered By: Jaswant Zaidi on 12-02-2023 Platelets (Bld) [#/Vol] 240 10*3/uL 150-450 [facility] Potassium [Moles/volume] in Serum or PlasmaOrdered By: Jaswant Zaidi on 12-02-2023 Potassium [Moles/Vol] 4.5 mmol/L 3.5-5.1 [facility] RBC Auto (Bld) [#/Vol]Ordere d By: Jaswant Zaidi on 12-02-2023 RBC (Bld) [#/Vol] 4.45 10*6/uL 3.90-5.60 [facility] Serum or plasma anion gap de terminationOrdered By: Jaswant Zaidi on 12-02-2023 Anion gap [Moles/Vol] 10.2 mmol/L 6.0-15.0 [facility] Sodium [Moles/volume] in Ser um or PlasmaOrdered By: Jaswant Zaidi on 12-02-2023 Sodium [Moles/Vol] 137 mmol/L 136-145 [facility] Urea nitrogen [Mass/volume] in Serum or PlasmaOrdered By: Jaswant Zaidi on 12-02-2023 Urea nitrogen [Mass/Vol] 11 mg/dL 7-25 [facility] WBC Auto (Bld) [#/Vol]Ordere d By: Jaswant Zaidi on 12-02-2023 WBC (Bld) [#/Vol] 9.3 10*3/uL 4.1-10.5 [facility] Amphetamine Screen Ql (U)Ord ered By: Vinicio Tamez on 11-28-2023 Amphetamines Ql (U) Negative Negative [facility] Barbiturates [Presence] in U rine by Screen methodOrdered By: Vinicio Tamez on 11-28-2023 Barbiturates Screen Ql (U) Negative Negative [facility] Benzodiazepines Screen Ql (U )Ordered By: Vinciio Tamez on 11-28-2023 Benzodiazepines Ql (U) Negative Negative [facility] Benzoylecgonine [Presence] i n Urine by Screen methodOrdered By: Vinicio Tamez on 11-28-2023 Benzoylecgonine Screen Ql (U) Negative Negative [facility] Cannabinoids [Presence] in U rine by Screen methodOrdered By: Vinicio Tamez on 11-28-2023 Cannabinoids Screen Ql (U) Positive High Negative [facility] Comment on above: These are unconfirme d results and should not be used for legal purposes. Drug Cut-Off Concentration: AMPH 1000 ng/mL JASEN 200 ng/mL FRANCOIS 200 ng/mL COCM 300 ng/mL OP 300 ng/mL PCP 25 ng/mL THC 20 ng/mL Opiates [Presence] in Urine by Screen methodOrdered By: Vinicio Tamez on 11-28-2023 Opiates Screen Ql (U) Negative Negative [facility] Phencyclidine Screen Ql (U)O rdered By: Vinicio Tamez on 11-28-2023 Phencyclidine Ql (U) Negative Negative [facility] IRON AND TIBCon 2023 [facility] IRON 76.0 ug/dL 65.0 - 175.0 ug/dL [facility] Healthcare [facility]H PERCENT IRON SATURATION 28.9 % [facility] Healthcare TB TOTAL IRON BINDING CAPACITY 263.0 ug/dL 250.0 - 450.0 ug/dL [facility] Healthcare [facility] Healthcare Vital Signs Date Time Vital Sign Value Performing Clinician Facility 12-14-2024 09:59-0400 Body height 177.8 cm Jaswant Zaidi DO Work Phone: [facility] 12-14-2024 09:59-0400 Body mass index (BMI) [Ratio] 19.23 kg/m2 Jaswant Zaidi DO Work Phone: [facility] 12-14-2024 09:59-0400 Body weight 60.78 kg Jaswant Zaidi DO Work Phone: [facility] 11-29-2024 09:11-0400 Body height 175.3 cm Bryan Juarez FAMILY AND CONSUMER SCIENCE PROFESSOR Work Phone: [facility] 11-29-2024 09:11-0400 Body mass index (BMI) [Ratio] 19.88 kg/m2 Bryan Hidalgonagel FAMILY AND CONSUMER SCIENCE PROFESSOR Work Phone: [facility] 11-29-2024 09:11-0400 Body weight 61.05 kg Bryan Miladygel FAMILY AND CONSUMER SCIENCE PROFESSOR Work Phone: [facility] 11-29-2024 09:11-0400 Diastolic blood pressure 70 mm[Hg] Bryan Hidalgonagel FAMILY AND CONSUMER SCIENCE PROFESSOR Work Phone: [facility] 11-29-2024 09:11-0400 Systolic blood pressure 130 mm[Hg] Bryan Hidalgonagel FAMILY AND CONSUMER SCIENCE PROFESSOR Work Phone: [facility] 11-02-2024 13:32-0400 Body height 175.26 cm Perlita Liu APRN Work Phone: [facility] 11-02-2024 13:32-0400 Body mass index (BMI) [Ratio] 20.9 kg/m2 Perlita Liu BUTTER FAT TESTER Work Phone: [facility] 11-02-2024 13:32-0400 Body temperature 98.7 [degF] Perlita Liu [employer]TER [employer] Work Phone: [facility] 11-02-2024 13:32-0400 Body weight 64.46 kg Perlita Liu APRN Work Phone: [facility] 11-02-2024 13:32-0400 Diastolic blood pressure 60 mm[Hg] Perlita Liu [employer]TER [employer] Work Phone: [facility] 11-02-2024 13:32-0400 Heart rate 71 /min Perlita Liu [employer]TER [employer] Work Phone: [facility] 11-02-2024 13:32-0400 SaO2% (BldA) [Mass fraction] 95 % Perlita Liu [employer]TER [employer] Work Phone: [facility] 11-02-2024 13:32-0400 Systolic blood pressure 102 mm[Hg] Perlita Liu BUTTER [employer]STER Work Phone: [facility] 11-02-2024 09:53-0400 Body height 177.8 cm Jaswant Willk DO Work Phone: [facility] 11-02-2024 09:53-0400 Body mass index (BMI) [Ratio] 22.96 kg/m2 Jaswant Portercek DO Work Phone: [facility] 11-02-2024 09:53-0400 Body weight 72.58 kg Jaswant Portercek DO Work Phone: [facility] 10-11-2024 11:28-0400 Body height 175.26 cm Perlita Loweryjohn BUTTER FAT TESTER Work Phone: [facility] 10-11-2024 11:28-0400 Body mass index (BMI) [Ratio] 21.4 kg/m2 Perlita Loweryjohn BUTTER [employer]STER Work Phone: [facility] 10-11-2024 11:28-0400 Body weight 65.7 kg Perlita Liu BUTTER FAT [employer]STER Work Phone: [facility] 09-21-2024 09:35-0400 Body height 177.8 cm Jaswant Portercek DO Work Phone: [facility] 09-21-2024 09:35-0400 Body mass index (BMI) [Ratio] 22.96 kg/m2 Jaswant Zaidi DO Work Phone: [facility] 09-21-2024 09:35-0400 Body weight 72.58 kg Jaswant Zaidi DO Work Phone: [facility] 09-08-2024 10:56-0400 Diastolic blood pressure 66 mm[Hg] Perlita Liu BUTTER [employer]STER Work Phone: [facility] 09-08-2024 10:56-0400 Heart rate 66 /min Perlita Liu BUTTER [employer]STER Work Phone: [facility] 09-08-2024 10:56-0400 Respiratory rate 14 /min Perlita Liu BUTTER FAT [employer]STER Work Phone: [facility] 09-08-2024 10:56-0400 SaO2% (BldA) [Mass fraction] 95 % Perlitamelania Liu BUTTER FAT TESTER Work Phone: [facility] 09-08-2024 10:56-0400 Systolic blood pressure 109 mm[Hg] Perlitamelania Liu BUTTER FAT TESTER Work Phone: [facility] 09-08-2024 10:00-0400 Inhaled oxygen flow rate 0 L/min Perlita Alexa [employer] Work Phone: [facility] 09-08-2024 09:50-0400 Body temperature 97.6 [degF] Perlita Liu [employer]TER [employer] Work Phone: [facility] 09-08-2024 08:03-0400 Body height 175.26 cm Perlita Liu BUTTER [employer] TESTER Work Phone: [facility] 09-08-2024 08:03-0400 Body weight 68 kg Perlita Alexa BUTTER FAT TESTER Work Phone: [facility] 08-10-2024 10:38-0500 Body height 177.8 cm Jaswant Zaidi DO Work Phone: [facility] 08-10-2024 10:38-0500 Body mass index (BMI) [Ratio] 22.96 kg/m2 Jaswant Zaidi DO Work Phone: [facility] 08-10-2024 10:38-0500 Body weight 72.58 kg Jaswant Zaidi DO Work Phone: [facility] 07-30-2024 09:56-0500 Body height 175.26 cm Perlita Alexa [employer]TER [employer]STER Work Phone: [facility] 07-30-2024 09:56-0500 Body mass index (BMI) [Ratio] 23.5 kg/m2 Perlitamelania Liu BUTTER FAT TESTER Work Phone: [facility] 07-30-2024 09:56-0500 Body temperature 97.4 [degF] Perlita Liu APRN Work Phone: [facility] 07-30-2024 09:56-0500 Body weight 72.17 kg Perlitamelania Liu BUTTER FAT TESTER Work Phone: [facility] 07-30-2024 09:56-0500 Diastolic blood pressure 78 mm[Hg] Perlitamelania Liu BUTTER [employer] TESTER Work Phone: [facility] 07-30-2024 09:56-0500 Heart rate 72 /min Perlitamelania Liu APRN Work Phone: [facility] 07-30-2024 09:56-0500 SaO2% (BldA) [Mass fraction] 97 % Perlita Liu BUTTER [employer] Work Phone: [facility] 07-30-2024 09:56-0500 Systolic blood pressure 146 mm[Hg] Perlita Liu [employer]TER [employer] Work Phone: [facility] 07-15-2024 13:05-0500 Body height 175.26 cm Perlita Liu APRN Work Phone: [facility] 07-15-2024 13:05-0500 Body mass index (BMI) [Ratio] 23.8 kg/m2 Perlita Liu [employer]TER [employer] Work Phone: [facility] 07-15-2024 13:05-0500 Body weight 73.02 kg Perlita Liu BUTTER FAT [employer]STER Work Phone: [facility] 07-15-2024 13:05-0500 Diastolic blood pressure 62 mm[Hg] Perlita Liu BUTTER [employer] Work Phone: [facility] 07-15-2024 13:05-0500 Heart rate 67 /min Perlita Liu BUTTER [employer] Work Phone: [facility] 07-15-2024 13:05-0500 Systolic blood pressure 121 mm[Hg] Perlita Liu BUTTER FAT [employer]STER Work Phone: [facility] 06-29-2024 10:50-0500 Body height 177.8 cm Jaswant Murcek DO Work Phone: [facility] 06-29-2024 10:50-0500 Body mass index (BMI) [Ratio] 22.96 kg/m2 Jaswant Murcek DO Work Phone: [facility] 06-29-2024 10:50-0500 Body weight 72.58 kg Jaswant Murcek DO Work Phone: [facility] 06-03-2024 09:21-0500 Body height 177.8 cm Shanelle Itzkowitz DO Work Phone: [facility] 06-03-2024 09:21-0500 Body mass index (BMI) [Ratio] 23.17 kg/m2 Shanelle Itzkowitz DO Work Phone: [facility] 06-03-2024 09:21-0500 Body weight 73.26 kg Shanelle Itzkowitz DO Work Phone: [facility] 05-11-2024 10:30-0500 Body height 177.8 cm Jaswant Murcek DO Work Phone: [facility] 05-11-2024 10:30-0500 Body mass index (BMI) [Ratio] 26.54 kg/m2 Jaswant Murcek DO Work Phone: [facility] 05-11-2024 10:30-0500 Body weight 83.92 kg Jaswant Murcek DO Work Phone: [facility] 04-12-2024 11:33-0400 Body weight 80.73 kg Perlita Liu BUTTER FAT TESTER Work Phone: [facility] 03-30-2024 10:02-0400 Body height 177.8 cm Jaswant Murcek DO Work Phone: [facility] 03-30-2024 10:02-0400 Body mass index (BMI) [Ratio] 26.54 kg/m2 Jaswant Murcek DO Work Phone: [facility] 03-30-2024 10:02-0400 Body weight 83.92 kg Jaswant Murcek DO Work Phone: [facility] 03-29-2024 12:55-0400 Body weight 82.55 kg MARY LOU iLu Work Phone: [facility] 03-04-2024 10:02-0400 Body height 177.8 cm MARY LOU Liu Work Phone: [facility] 03-04-2024 10:02-0400 Body mass index (BMI) [Ratio] 26 kg/m2 BUTTER FAT TESTERSriram Liu Work Phone: [facility] 03-04-2024 10:02-0400 Body weight 82.27 kg BUT[employer] FAT TESTERSriram Liu Work Phone: [facility] 03-04-2024 10:02-0400 Diastolic blood pressure 80 mm[Hg] MARY LOU Liu Work Phone: [facility] 03-04-2024 10:02-0400 Heart rate 95 /min [employer] Perlita Barbararbacher Work Phone: [facility] 03-04-2024 10:02-0400 Respiratory rate 18 /min [employer] Perlita Barbararbacher Work Phone: [facility] 03-04-2024 10:02-0400 SaO2% (BldA) [Mass fraction] 97 % [employer] Perlita Barbararbacher Work Phone: [facility] 03-04-2024 10:02-0400 Systolic blood pressure 138 mm[Hg] BUTTER FAT TESTERSriram DesaiPerlita Barbararbacher Work Phone: [facility] 02-27-2024 13:25-0400 Body temperature 98 [degF] BUTTER FAT TESTERSriram BishopPerlita Barbararbacher Work Phone: [facility] 02-27-2024 13:25-0400 Diastolic blood pressure 75 mm[Hg] MARY LOU Bishopnifer Barbararbacher Work Phone: [facility] 02-27-2024 13:25-0400 Heart rate 87 /min [employer] TESTERSriram BishopPerlita Barbararbacher Work Phone: [facility] 02-27-2024 13:25-0400 Respiratory rate 20 /min MARY LOU Perlita Barbararbacher Work Phone: [facility] 02-27-2024 13:25-0400 SaO2% (BldA) [Mass fraction] 100 % [employer] TESTERSriram BishopPerlita Barbararbacher Work Phone: [facility] 02-27-2024 13:25-0400 Systolic blood pressure 125 mm[Hg] MARY LOU Desaifer Barbararbacher Work Phone: [facility] 02-26-2024 08:06-0400 Body height 177.8 cm MARY LOU Jimenezrbacher Work Phone: [facility] 02-24-2024 10:41-0400 Body height 177.8 cm Jaswant Zaidi DO Work Phone: [facility] 02-24-2024 10:41-0400 Body mass index (BMI) [Ratio] 26.54 kg/m2 Jaswant Zaidi DO Work Phone: [facility] 02-24-2024 10:41-0400 Body weight 83.92 kg Jaswant Zaidi DO Work Phone: [facility] 02-19-2024 16:03-0400 Body height 177.8 cm BUT[employer] TESTERSriram Higginsacher Work Phone: [facility] 02-19-2024 10:23-0400 Body temperature 97.9 [degF] BUT[employer] TESTERSriram Higginsacher Work Phone: [facility] 02-19-2024 10:23-0400 Body weight 82.1 kg BUTTER FAT TESTERSriram Loweryr Work Phone: [facility] 02-19-2024 10:23-0400 Diastolic blood pressure 76 mm[Hg] BUTTER FAT TESTERSriram Higginsacher Work Phone: [facility] 02-19-2024 10:23-0400 Heart rate 88 /min [employer] TESTERSriram Higginsacher Work Phone: [facility] 02-19-2024 10:23-0400 Respiratory rate 18 /min [employer] TESTERSriram Higginsacher Work Phone: [facility] 02-19-2024 10:23-0400 SaO2% (BldA) [Mass fraction] 95 % [employer] TESTERSriram Higginsacher Work Phone: [facility] 02-19-2024 10:23-0400 Systolic blood pressure 121 mm[Hg] MARY LOU Higginsacher Work Phone: [facility] 02-18-2024 14:02-0400 Body temperature 98 [degF] MARY LOU Higginsacher Work Phone: [facility] 02-18-2024 14:02-0400 Body weight 82.1 kg [employer] Perlita Barbararbacher Work Phone: [facility] 02-18-2024 14:02-0400 Diastolic blood pressure 77 mm[Hg] BUT[employer] FAT TESTERSriram DesaiPerlita Barbararbacher Work Phone: [facility] 02-18-2024 14:02-0400 Heart rate 78 /min [employer] TESTERSriram DesaiPerlita Barbararbacher Work Phone: [facility] 02-18-2024 14:02-0400 Respiratory rate 20 /min [employer] TESTERSriram Jimenezrbacher Work Phone: [facility] 02-18-2024 14:02-0400 SaO2% (BldA) [Mass fraction] 98 % [employer] TESTERSriram Jimenezrbacher Work Phone: [facility] 02-18-2024 14:02-0400 Systolic blood pressure 128 mm[Hg] BUT[employer] TESTERSriram Jimenezrbacher Work Phone: [facility] 02-09-2024 13:58-0400 Body temperature 97.7 [degF] BUT[employer] Perlita Barbararbacher Work Phone: [facility] 02-09-2024 13:58-0400 Body weight 79.83 kg [employer] TESTERSriram Jimenezrbacher Work Phone: [facility] 02-09-2024 13:58-0400 Diastolic blood pressure 87 mm[Hg] BUT[employer] TESTERSriram Jimenezrbacher Work Phone: [facility] 02-09-2024 13:58-0400 Heart rate 75 /min [employer] TESTERSriram Jimenezrbacher Work Phone: [facility] 02-09-2024 13:58-0400 Respiratory rate 20 /min [employer] TESTERSriram Jimenezrbacher Work Phone: [facility] 02-09-2024 13:58-0400 SaO2% (BldA) [Mass fraction] 95 % [employer] TESTERSriram Higginsacher Work Phone: [facility] 02-09-2024 13:58-0400 Systolic blood pressure 125 mm[Hg] BUT[employer] TESTERSriram Jimenezrbacher Work Phone: [facility] 02-03-2024 12:30-0400 Diastolic blood pressure 79 mm[Hg] BUT[employer] TESTERSriram Jimenezrbacher Work Phone: [facility] 02-03-2024 12:30-0400 Heart rate 87 /min [employer] TESTERSriram Higginsacher Work Phone: [facility] 02-03-2024 12:30-0400 Respiratory rate 20 /min [employer] TESTERSriram Jimenezrbacher Work Phone: [facility] 02-03-2024 12:30-0400 SaO2% (BldA) [Mass fraction] 94 % [employer] TESTERSriram Higginsacher Work Phone: [facility] 02-03-2024 12:30-0400 Systolic blood pressure 140 mm[Hg] BUT[employer] TESTERSriram Higginsacher Work Phone: [facility] 02-03-2024 12:01-0400 Inhaled oxygen flow rate 8 L/min [employer] TESTERSriram Higginsacher Work Phone: [facility] 02-03-2024 10:49-0400 Body height 177.8 cm [employer] TESTERSriram Higginsacher Work Phone: [facility] 02-03-2024 10:49-0400 Body temperature 98.3 [degF] MARY LOU Higginsacher Work Phone: [facility] 02-03-2024 10:49-0400 Body weight 81.64 kg MARY LOU Higginsacher Work Phone: [facility] 02-02-2024 14:27-0400 Body height 177.8 cm MARY LOU Higginsacher Work Phone: [facility] 02-02-2024 11:00-0400 Body temperature 97.6 [degF] BUT[employer] TESTERSriram DesaiPerlita Barbararbacher Work Phone: [facility] 02-02-2024 11:00-0400 Diastolic blood pressure 76 mm[Hg] BUT[employer] TESTERSriram Higginsacher Work Phone: [facility] 02-02-2024 11:00-0400 Heart rate 94 /min [employer] TESTERSriram Jimenezrbacher Work Phone: [facility] 02-02-2024 11:00-0400 Respiratory rate 17 /min BUT[employer] TESTERSriram DesaiPerlita Giselaacher Work Phone: [facility] 02-02-2024 11:00-0400 SaO2% (BldA) [Mass fraction] 95 % [employer] TESTERSriram Higginsacher Work Phone: [facility] 02-02-2024 11:00-0400 Systolic blood pressure 138 mm[Hg] BUT[employer] TESTERSriram Higginsacher Work Phone: [facility] 01-26-2024 13:56-0400 Body height 177.8 cm [employer] TESTERSriram Higginsacher Work Phone: [facility] 01-26-2024 13:56-0400 Body mass index (BMI) [Ratio] 26.8 kg/m2 [employer] TESTERSriram Higginsacher Work Phone: [facility] 01-26-2024 13:56-0400 Body temperature 98 [degF] MARY LOU Higginsacher Work Phone: [facility] 01-26-2024 13:56-0400 Body weight 84.82 kg MARY LOU Higginsacher Work Phone: [facility] 01-26-2024 13:56-0400 Diastolic blood pressure 65 mm[Hg] MARY LOU Perlita Barbararbacher Work Phone: [facility] 01-26-2024 13:56-0400 Heart rate 81 /min [employer] Perlita Barbararbacher Work Phone: [facility] 01-26-2024 13:56-0400 Respiratory rate 18 /min BUT[employer] TESTERSriram Bhat Barbararbacher Work Phone: [facility] 01-26-2024 13:56-0400 SaO2% (BldA) [Mass fraction] 96 % [employer] Perlita Barbararbacher Work Phone: [facility] 01-26-2024 13:56-0400 Systolic blood pressure 114 mm[Hg] BUT[employer] Perlita Barbararbacher Work Phone: [facility] 01-22-2024 13:05-0400 Body height 177.8 cm [employer] Perlita Barbararbacher Work Phone: [facility] 01-22-2024 10:27-0400 Body temperature 98.2 [degF] BUT[employer] TESTERSriram Bhat Barbararbacher Work Phone: [facility] 01-22-2024 10:27-0400 Body weight 86.36 kg BUT[employer] TESTERSriram Jimenezrbacher Work Phone: [facility] 01-22-2024 10:27-0400 Diastolic blood pressure 69 mm[Hg] [employer] Perlita Barbararbacher Work Phone: [facility] 01-22-2024 10:27-0400 Heart rate 84 /min [employer] Perlita Barbararbacher Work Phone: [facility] 01-22-2024 10:27-0400 Respiratory rate 16 /min [employer] Perlita Barbararbacher Work Phone: [facility] 01-22-2024 10:27-0400 SaO2% (BldA) [Mass fraction] 96 % [employer] Perlita Rohrbacher Work Phone: [facility] 01-22-2024 10:27-0400 Systolic blood pressure 131 mm[Hg] BUT[employer] TESTERSriram Jimenezrbacher Work Phone: [facility] 01-15-2024 16:54-0400 Body height 177.8 cm [employer] TESTERSriram Jimenezrbacher Work Phone: [facility] 01-15-2024 10:08-0400 Body temperature 98.2 [degF] BUT[employer] TESTERSriram Jimenezrbacher Work Phone: [facility] 01-15-2024 10:08-0400 Body weight 88.22 kg [employer] TESTERSriram Higginsacher Work Phone: [facility] 01-15-2024 10:08-0400 Diastolic blood pressure 79 mm[Hg] BUT[employer] TESTERSriram Higginsacher Work Phone: [facility] 01-15-2024 10:08-0400 Heart rate 74 /min [employer] TESTERSriram Higginsacher Work Phone: [facility] 01-15-2024 10:08-0400 Respiratory rate 18 /min [employer] TESTERSriram Jimenezrbacher Work Phone: [facility] 01-15-2024 10:08-0400 SaO2% (BldA) [Mass fraction] 97 % [employer] TESTERSriram Higginsacher Work Phone: [facility] 01-15-2024 10:08-0400 Systolic blood pressure 154 mm[Hg] BUT[employer] TESTERSriram Jimenezrbacher Work Phone: [facility] 01-08-2024 16:57-0400 Body height 177.8 cm [employer] TESTERSriram Jimenezrbacher Work Phone: [facility] 01-08-2024 10:19-0400 Body temperature 98.7 [degF] MARY LOU Jimenezrbacher Work Phone: [facility] 01-08-2024 10:190400 Body weight 88.45 kg [employer] TESTERSriram Higginsacher Work Phone: [facility] 01-08-2024 10:19-0400 Diastolic blood pressure 64 mm[Hg] BUT[employer] TESTERSriram Jimenezrbacher Work Phone: [facility] 01-08-2024 10:190400 Heart rate 60 /min [employer] TESTERSriram Jimenezrbacher Work Phone: [facility] 01-08-2024 10:190400 Respiratory rate 18 /min [employer] TESTERSriram Higginsacher Work Phone: [facility] 01-08-2024 10:190400 SaO2% (BldA) [Mass fraction] 95 % [employer] TESTERSriram Higginsacher Work Phone: [facility] 01-08-2024 10:19-0400 Systolic blood pressure 132 mm[Hg] BUT[employer] TESTERSriram Higginsacher Work Phone: [facility] 01-07-2024 09:26-0400 Body height 177.8 cm [employer] TESTERSriram Higginsacher Work Phone: [facility] 01-07-2024 09:26-0400 Body mass index (BMI) [Ratio] 27.6 kg/m2 [employer] TESTERSriram Higginsacher Work Phone: [facility] 01-07-2024 09:26-0400 Body weight 87.54 kg [employer] TESTERSriram Higginsacher Work Phone: [facility] 01-07-2024 09:26-0400 Diastolic blood pressure 66 mm[Hg] BUT[employer] TESTERSriram Jimenezrbacher Work Phone: [facility] 01-07-2024 09:26-0400 Heart rate 68 /min [employer] TESTERSriram Higginsacher Work Phone: [facility] 01-07-2024 09:26-0400 SaO2% (BldA) [Mass fraction] 98 % [employer] TESTERSriram Higginsacher Work Phone: [facility] 01-07-2024 09:26-0400 Systolic blood pressure 114 mm[Hg] BUT[employer] TESTERSriram Jimenezrbacher Work Phone: [facility] 01-01-2024 17:15-0400 Body height 177.8 cm [employer] TESTERSriram Jimenezrbacher Work Phone: [facility] 01-01-2024 09:58-0400 Body temperature 98.2 [degF] BUTTER FAT TESTERSriram Jimenezrbacher Work Phone: [facility] 01-01-2024 09:58-0400 Body weight 89.53 kg BUTTER FAT TESTERSriram Jimenezrbacher Work Phone: [facility] 01-01-2024 09:58-0400 Diastolic blood pressure 64 mm[Hg] MARY LOU Jimenezrbacher Work Phone: [facility] 01-01-2024 09:58-0400 Heart rate 83 /min BUTTER FAT TESTERSriram Jimenezrbacher Work Phone: [facility] 01-01-2024 09:58-0400 Respiratory rate 18 /min BUTTER FAT TESTERSriram Jimenezrbacher Work Phone: [facility] 01-01-2024 09:58-0400 SaO2% (BldA) [Mass fraction] 96 % BUTTER FAT TESTERSriram Jimenezrbacher Work Phone: [facility] 01-01-2024 09:58-0400 Systolic blood pressure 153 mm[Hg] MARY LOU Jimenezrbacher Work Phone: [facility] 12-22-2023 14:03-0400 Body height 177.8 cm MARY LOU Jimenezrbacher Work Phone: [facility] 12-22-2023 14:03-0400 Body mass index (BMI) [Ratio] 28.7 kg/m2 BUTTER FAT TESTER Perlita Higginsacher Work Phone: [facility] 12-22-2023 14:03-0400 Body temperature 98.3 [degF] BUTTER FAT TESTERSriram Jimenezrbacher Work Phone: [facility] 12-22-2023 14:03-0400 Body weight 90.71 kg BUTTER FAT TESTERSriram Higginsacher Work Phone: [facility] 12-22-2023 14:03-0400 Diastolic blood pressure 67 mm[Hg] BUTTER FAT TESTER Perlita Higginsacher Work Phone: [facility] 12-22-2023 14:03-0400 Heart rate 61 /min BUTTER FAT TESTER Perlita Jimenezrbacher Work Phone: [facility] 12-22-2023 14:03-0400 Respiratory rate 20 /min BUTTER FAT TESTERSriram Jimenezrbacher Work Phone: [facility] 12-22-2023 14:03-0400 SaO2% (BldA) [Mass fraction] 95 % BUTTER FAT TESTERSriram Higginsacher Work Phone: [facility] 12-22-2023 14:03-0400 Systolic blood pressure 124 mm[Hg] BUTTER FAT TESTER Perlita Higginsacher Work Phone: [facility] 12-17-2023 15:13-0400 Body height 177.8 cm BUTTER FAT TESTER Perlita Higginsacher Work Phone: [facility] 12-17-2023 15:13-0400 Body mass index (BMI) [Ratio] 28.6 kg/m2 BUTTER FAT TESTERSriram Higginsacher Work Phone: [facility] 12-17-2023 15:13-0400 Body weight 90.52 kg BUTTER FAT TESTERSriram BishopPerlita Barbarakorinaacher Work Phone: [facility] 12-17-2023 15:13-0400 Diastolic blood pressure 80 mm[Hg] BUTTER FAT TESTERSriram Jimenezrbacher Work Phone: [facility] 12-17-2023 15:13-0400 Heart rate 69 /min BUT[employer] TESTERSriram Jimenezrbacher Work Phone: [facility] 12-17-2023 15:13-0400 Respiratory rate 18 /min BUT[employer] TESTERSriram Jimenezrbacher Work Phone: [facility] 12-17-2023 15:13-0400 SaO2% (BldA) [Mass fraction] 95 % BUTTER FAT TESTERSriram Jimenezrbacher Work Phone: [facility] 12-17-2023 15:13-0400 Systolic blood pressure 119 mm[Hg] BUTTER FAT TESTERSriram Jimenezrbacher Work Phone: [facility] 11-28-2023 13:01-0400 Diastolic blood pressure 85 mm[Hg] BUTTER FAT TESTERSriram Jimenezrbacher Work Phone: [facility] 11-28-2023 13:01-0400 Heart rate 60 /min BUT[employer] FAT TESTERSriram Jimenezrbacher Work Phone: [facility] 11-28-2023 13:01-0400 Respiratory rate 16 /min BUTTER FAT TESTERSriram Jimenezrbacher Work Phone: [facility] 11-28-2023 13:01-0400 SaO2% (BldA) [Mass fraction] 94 % BUT[employer] TESTERSriram Jimenezrbacher Work Phone: [facility] 11-28-2023 13:01-0400 Systolic blood pressure 146 mm[Hg] BUTTER FAT TESTERSriram Jimenezrbacher Work Phone: [facility] 11-28-2023 10:31-0400 Body height 177.8 cm BUTTER FAT TESTERSriram Jimenezrbacher Work Phone: [facility] 11-28-2023 10:31-0400 Body temperature 98.4 [degF] MARY LOU Bhat Alexa Work Phone: [facility] 11-28-2023 10:31-0400 Body weight 90.7 kg MARY LOU Bhat Alexa Work Phone: [facility] 11-11-2023 09:20-0400 Body height 177.8 cm [facility] 11-11-2023 09:20-0400 Body mass index (BMI) [Ratio] 29 kg/m2 [facility] 11-11-2023 09:20-0400 Body weight 91.62 kg [facility] 11-11-2023 09:20-0400 Diastolic blood pressure 76 mm[Hg] [facility] 11-11-2023 09:20-0400 Heart rate 66 /min [facility] 11-11-2023 09:20-0400 SaO2% (BldA) [Mass fraction] 97 % [facility] 11-11-2023 09:20-0400 Systolic blood pressure 146 mm[Hg] [facility] 08-27-2023 08:47-0500 Body height 177.8 cm [facility] 08-27-2023 08:47-0500 Body mass index (BMI) [Ratio] 29.2 kg/m2 [facility] 08-27-2023 08:47-0500 Body weight 92.53 kg [facility] 08-27-2023 08:47-0500 Diastolic blood pressure 74 mm[Hg] [facility] 08-27-2023 08:47-0500 Heart rate 55 /min [facility] 08-27-2023 08:47-0500 SaO2% (BldA) [Mass fraction] 98 % [facility] 08-27-2023 08:47-0500 Systolic blood pressure 134 mm[Hg] [facility] 08-22-2023 10:41-0500 Body height 177.8 cm [facility] 08-22-2023 10:41-0500 Body mass index (BMI) [Ratio] 28.4 kg/m2 [facility] 08-22-2023 10:41-0500 Body weight 89.81 kg [facility] 08-22-2023 10:41-0500 Diastolic blood pressure 73 mm[Hg] [facility] 08-22-2023 10:41-0500 Heart rate 64 /min [facility] 08-22-2023 10:41-0500 Systolic blood pressure 131 mm[Hg] [facility] Encounters Encounter Date Encounter Type Care Provider Facility Start: 12-14-2024 End: 12-14-2024 Bamboo flowsheet Jaswant Portercielo DO Work Phone: [facility] Start: 12-14-2024 End: 12-14-2024 Bamboo flowsheet Jaswant Laci Zaidi DO Work Phone: [facility] Start: 12-14-2024 End: 12-14-2024 ambulatory JASWANT ZAIDI Not Available Start: 12-14-2024 End: 12-14-2024 Office outpatient visit 25 minutes Jaswant Zaidi DO Work Phone: [facility] Comment on above: 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); History of head and neck radiation Start: 12-06-2024 ambulatory Perlita hity:[facility] Start: 11-29-2024 End: 11-29-2024 Bamboo flowsheet Bryan C Miladygel FAMILY AND CONSUMER SCIENCE PROFESSOR Work Phone: [facility] Start: 11-29-2024 End: 11-29-2024 Bamboo flowsheet Bryan C Windnagel FAMILY AND CONSUMER SCIENCE PROFESSOR Work Phone: [facility] Start: 11-29-2024 End: 11-29-2024 Office outpatient new 45 minutes Bryan C Windnagel FAMILY AND CONSUMER SCIENCE PROFESSOR Work Phone: [facility] Comment on above: 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); Asymptomatic bilateral carotid artery stenosis; Myoclonus Start: 11-29-2024 End: 11-29-2024 ambulatory BRYAN C WINDNAGEL Not Available Start: 11-02-2024 End: 11-02-2024 Bamboo flowsheet Jaswant Zaidi DO Work Phone: [facility] Start: 11-02-2024 End: 11-02-2024 Bamboo flowsheet Jaswant Laci Zaidi DO Work Phone: [facility] Start: 11-02-2024 End: 11-02-2024 ambulatory Perlita Alexa BUTTER FAT TESTER Work Phone: [facility] Work Phone: Start: 11-02-2024 End: 11-02-2024 Patient encounter procedure Perlita Alexa BUTTER FAT TESTER Work Phone: [facility] Work Phone: Start: 11-02-2024 End: 11-02-2024 Office outpatient visit 25 minutes Jaswant Zaidi DO Work Phone: [facility] Comment on above: Malignant neoplasm o f larynx (Primary Dx); History of head and neck radiation Start: 11-02-2024 End: 11-02-2024 ambulatory JASWANT Laci ZAIDI Not Available Start: 10-11-2024 End: 10-11-2024 ambulatory Perlita Alexa BUTTER FAT TESTER Work Phone: [facility] Work Phone: Start: 10-11-2024 End: 10-11-2024 Patient encounter procedure Perlita Alexa BUTTER FAT TESTER Work Phone: [facility] Work Phone: Start: 09-21-2024 End: 09-21-2024 Bamboo flowsheet Jaswant Zaidi DO Work Phone: [facility] Start: 09-21-2024 End: 09-21-2024 Bamboo flowsheet Jaswant Zaidi DO Work Phone: [facility] Start: 09-21-2024 End: 09-21-2024 Office outpatient visit 25 minutes Jaswant Zaidi DO Work Phone: [facility] Comment on above: Malignant neoplasm o f oropharynx (Primary Dx); History of head and neck radiation; Pharyngoesophageal dysphagia Start: 09-21-2024 End: 09-21-2024 ambulatory JASWANT ZAIDI Not Available Start: 09-08-2024 End: 09-08-2024 ambulatory JASWANT ZAIDI Not Available Start: 09-08-2024 End: 09-08-2024 Admission to same day surgery center Perlita Liu APRN Work Phone: [facility] Start: 09-08-2024 End: 09-08-2024 ambulatory Perlita Liu BUTTER FAT TESTER Work Phone: [facility] Work Phone: Start: 09-06-2024 End: 09-06-2024 Patient encounter procedure Perlita Liu APRN Work Phone: [facility] Work Phone: Start: 09-06-2024 End: 09-06-2024 ambulatory Perlita Liu BUTTER FAT TESTER Work Phone: [facility] Work Phone: Start: 09-06-2024 Encounter for preprocedural laboratory examination Jaswant Zaidi [facility] Start: 08-31-2024 End: 08-31-2024 ambulatory JASWANT ZAIDI Not Available Start: 08-16-2024 End: 08-16-2024 Patient encounter procedure Perlita Liu BUTTER FAT TESTER Work Phone: [facility] Work Phone: Start: 08-16-2024 End: 08-16-2024 ambulatory Perlita Liu BUTTER FAT TESTER Work Phone: [facility] Work Phone: Start: 08-10-2024 End: 08-10-2024 Office outpatient visit 25 minutes Jaswant Zaidi DO Work Phone: [facility] Comment on above: 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); History of head and neck radiation Start: 08-10-2024 End: 08-10-2024 ambulatory JASWANT ZAIDI Not Available Start: 07-30-2024 End: 07-30-2024 Patient encounter procedure Perlita Alexa BARRETO Work Phone: [facility] Work Phone: Start: 07-15-2024 End: 07-15-2024 Patient encounter procedure Perlita Alexa BARRETO Work Phone: [facility] Work Phone: Start: 07-06-2024 Registered Recurring Perlita Liu BUTTER FAT TESTER Work Phone: [facility] Work Phone: Start: 07-06-2024 End: 07-06-2024 Patient encounter procedure Perlita Alexa BARRETO Work Phone: [facility] Work Phone: Start: 07-01-2024 End: 07-01-2024 External Result Encounter Nabil Fox DO Work Phone: [facility] External Department Unsolicited Start: 07-01-2024 End: 07-01-2024 External Result Encounter Nabil Fox DO Work Phone: [facility] External Department Unsolicited Start: 06-29-2024 End: 06-29-2024 Bamboo flowsheet Jaswant Zaidi DO Work Phone: [facility] Start: 06-29-2024 End: 06-29-2024 Bamboo flowsheet Jaswant Zaidi DO Work Phone: [facility] Start: 06-29-2024 End: 06-29-2024 Office outpatient visit 25 minutes Jaswant Zaidi DO Work Phone: [facility] Comment on above: 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); History of head and neck radiation Start: 06-29-2024 End: 06-29-2024 ambulatory JASWANT ZAIDI Not Available Start: 06-28-2024 End: 06-28-2024 Patient encounter procedure Perlita Jimenezkorinalavonjohn BUTTER FAT TESTER [facility] Work Phone: Start: 06-25-2024 End: 06-25-2024 External Result Encounter Nabil Fox DO Work Phone: [facility] External Department Unsolicited Start: 06-25-2024 End: 06-25-2024 External Result Encounter Nabil Fox DO Work Phone: [facility] External Department Unsolicited Start: 06-03-2024 End: 06-03-2024 Office outpatient visit 15 minutes Shanelle H Itzkowitz DO Work Phone: [facility] Comment on above: Throat cancer (CMS/H CC) (Primary Dx); Oral phase dysphagia Start: 06-03-2024 End: 06-03-2024 ambulatory SHANELLE H ITZKOWITZ Not Available Start: 05-13-2024 End: 05-13-2024 Bamboo flowsheet Shanelle H Itzkowitz DO Work Phone: [facility] Start: 05-13-2024 End: 05-13-2024 Bamboo flowsheet Shanelle H Itzkowitz DO Work Phone: [facility] Start: 05-11-2024 End: 05-11-2024 Bamboo flowsheet Jaswant Zaidi DO Work Phone: [facility] Start: 05-11-2024 End: 05-11-2024 Bamboo flowsheet Jaswant Zaidi DO Work Phone: [facility] Start: 05-11-2024 End: 05-11-2024 Office outpatient visit 25 minutes Jaswant Zaidi DO Work Phone: [facility] Comment on above: 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) Start: 05-11-2024 End: 05-11-2024 ambulatory JASWANT ZAIDI Not Available Start: 03-30-2024 End: 03-30-2024 Bamboo flowsheet Jaswant Zaidi DO Work Phone: [facility] Start: 03-30-2024 End: 03-30-2024 Bamboo flowsheet Jaswant Zaidi DO Work Phone: [facility] Start: 03-30-2024 End: 03-30-2024 Office outpatient visit 25 minutes Jaswant Zaidi DO Work Phone: [facility] Comment on above: Malignant neoplasm o f larynx (CMS/HCC) (Primary Dx); History of head and neck radiation Start: 03-30-2024 End: 03-30-2024 ambulatory JASWANT ZAIDI Not Available Start: 03-29-2024 Registered Recurring MARY LOU Liu Work Phone: [facility] Work Phone: Start: 03-29-2024 Non-patient / Non-visit MARY LOU Liu Work Phone: [facility] Work Phone: Start: 03-29-2024 End: 03-29-2024 Patient encounter procedure MARY LOU Liu Work Phone: [facility] Start: 03-29-2024 End: 03-29-2024 ambulatory MARY LOU Liu Work Phone: [facility] Work Phone: Start: 03-04-2024 End: 03-04-2024 Patient encounter procedure BUTTER FAT TESTERSriram DesaiPerlitasarah beth Liu Work Phone: [facility] Work Phone: Start: 02-27-2024 End: 02-27-2024 Patient encounter procedure MARY LOU Bhat Alexa [facility] Work Phone: Start: 02-26-2024 ambulatory Perlita Liu Fac ility:[facility] Start: 02-26-2024 Registered Recurring BUTTER FAT TESTER Sally Liu Work Phone: [facility] Start: 02-24-2024 Registered Recurring BUTTER FAT TESTERSriram Liu Work Phone: [facility] Work Phone: Start: 02-24-2024 End: 02-24-2024 Bamboo flowsheet Jaswant Zaidi DO Work Phone: [facility] Start: 02-24-2024 End: 02-24-2024 Bamboo flowsheet Jaswant Zaidi DO Work Phone: [facility] Start: 02-24-2024 Non-patient / Non-visit MARY LOU Liu Work Phone: [facility] Work Phone: Start: 02-24-2024 End: 02-24-2024 Office outpatient visit 25 minutes Jaswant Zaidi DO Work Phone: [facility] Comment on above: Malignant neoplasm o f larynx (CMS/HCC) (Primary Dx) Start: 02-24-2024 End: 02-24-2024 ambulatory JASWANT ZAIDI Not Available Start: 02-24-2024 End: 02-24-2024 Patient encounter procedure BUTTER FAT TESTERSriram Liu Work Phone: [facility] Start: 02-24-2024 End: 02-24-2024 ambulatory BUTTER FAT TESTERSriram Loweryr Work Phone: [facility] Work Phone: Start: 02-19-2024 End: 02-19-2024 Postop follow up visit related to original px Shanelle Burgess Dejonkevin DO Work Phone: [facility] Comment on above: Oral phase dysphagia (Primary Dx); Throat cancer (CMS/HCC) Start: 02-19-2024 End: 02-19-2024 ambulatory SHANELLE MALLORY Not Available Start: 02-18-2024 End: 02-18-2024 Patient encounter procedure BUTTER FAT TESTERSriram Liu Work Phone: [facility] Work Phone: Start: 02-18-2024 End: 02-18-2024 External Result Encounter Nabil Leonel Fox DO Work Phone: [facility] External Department Unsolicited Start: 02-18-2024 End: 02-18-2024 External Result Encounter Naibl Leonel Fox DO Work Phone: [facility] External Department Unsolicited Start: 02-18-2024 Non-patient / Non-visit MARY LOU Loweryr Work Phone: [facility] Work Phone: Start: 02-18-2024 Registered Recurring MARY LOU [facility] Work [facility]: Start: 02-18-2024 Non-patient / Non-visit MARY LOU Loweryr Work Phone: [facility] Work Phone: Start: 02-18-2024 End: 02-18-2024 Patient encounter procedure BUTTER FAT TESTER Perlita Beverleyr Work Phone: [facility] Start: 02-18-2024 End: 02-18-2024 ambulatory BUTTER FAT TESTER Perlita Beverleyr Work Phone: [facility] Work Phone: Start: 02-16-2024 Non-patient / Non-visit BUTTER FAT TESTER Leonel hardin Giselaacher Work Phone: [facility] Work Phone: Start: 02-11-2024 Non-patient / Non-visit BUTTER FAT TESTER Leonel hardin Barbararbacher Work Phone: [facility] Work Phone: Start: 02-09-2024 Non-patient / Non-visit BUTTER FAT TESTER Leonel evansmelania Giselaacher Work Phone: [facility] Work Phone: Start: 02-09-2024 End: 02-09-2024 Patient encounter procedure BUTTER FAT TESTER Perlita Beverleyr Work Phone: [facility] Work Phone: Start: 02-09-2024 End: 02-09-2024 ambulatory BUTTER FAT TESTER Perlitamelania Loweryr Work Phone: [facility] Work Phone: Start: 02-09-2024 Registered Recurring BUTTER FAT TESTERSriram Loweryr [facility] Work Phone: Start: 02-03-2024 End: 02-03-2024 Admission to same day surgery center BUTTER FAT TESTERSriram Liu [facility] Start: 02-03-2024 End: 02-03-2024 ambulatory MARY LOU Bhat Alexa Work Phone: [facility] Work Phone: Start: 02-02-2024 Registered Recurring MARY LOU jack Giselaachejohn Work Phone: [facility] Work Phone: Start: 02-02-2024 Non-patient / Non-visit BUTTER FAT TESTER Leonel evansmelania Giselaacher Work Phone: [facility] Work Phone: Start: 02-02-2024 End: 02-02-2024 Patient encounter procedure BUTTER FAT TESTERSriram Bhat Beverleyr Work Phone: [facility] Start: 02-02-2024 End: 02-02-2024 ambulatory BUTTER FAT TESTERSriram Bhat Beverleyr Work Phone: [facility] Work Phone: Start: 01-29-2024 End: 01-29-2024 ambulatory SHANELLE Aditya MOHAMUD Not Available Start: 01-29-2024 Registered Recurring BUTTER FAT TESTER Sally jack Alexa Work Phone: [facility] Start: 01-28-2024 Non-patient / Non-visit BUTTER FAT TESTER Leonel evansmelania Giselaacher [facility] Work Phone: Start: 01-26-2024 End: 01-26-2024 Patient encounter procedure BUTTER FAT TESTER Perlita Beverleyr Work Phone: [facility] Work Phone: Start: 01-26-2024 Non-patient / Non-visit BUTTER FAT TESTER Leonel evansmelania Barbararbacher Work Phone: [facility] Work Phone: Start: 01-26-2024 Registered Recurring MARY LOU Higginsacher Work Phone: [facility] Work Phone: Start: 01-26-2024 End: 01-26-2024 Patient encounter procedure MARY LOU Higginsacher Work Phone: [facility] Start: 01-26-2024 End: 01-26-2024 ambulatory MARY LOU Higginsacher Work Phone: [facility] Work Phone: Start: 01-23-2024 Registered Recurring MARY LOU Jimenezrbacher Work Phone: [facility] Work Phone: Start: 01-23-2024 Non-patient / Non-visit BUTTER FAT TESTER Leonel Jimenezrbacher Work Phone: [facility] Work Phone: Start: 01-23-2024 End: 01-23-2024 Patient encounter procedure MARY LOU Loweryr Work Phone: [facility] Start: 01-23-2024 End: 01-23-2024 ambulatory MARY LOU Jimenezrbacher Work Phone: [facility] Work Phone: Start: 01-21-2024 Non-patient / Non-visit BUTTER FAT TESTER Leonel hardin Barbararbacher Work Phone: [facility] Work Phone: Start: 01-20-2024 Non-patient / Non-visit BUTTER FAT TESTER Leonel Jimenezrbacher Work Phone: [facility] Work Phone: Start: 01-20-2024 End: 01-20-2024 ambulatory JASWANT ZAIDI Not Available Start: 01-19-2024 Non-patient / Non-visit BUTTER FAT TESTER Leonel Jimenezrbacher Work Phone: [facility] Work Phone: Start: 01-19-2024 Registered Recurring BUTTER FAT TESTERSriram jack Rohrbacher [facility] Work Phone: Start: 01-19-2024 Non-patient / Non-visit BUTTER FAT TESTER Leonel hardin Barbararbacher Work Phone: [facility] Work Phone: Start: 01-19-2024 Non-patient / Non-visit BUTTER FAT TESTER Leonel Jimenezrbacher Work Phone: [facility] Work Phone: Start: 01-19-2024 End: 01-19-2024 Patient encounter procedure BUTTER FAT TESTERSriram Bhat Barbararbacher Work Phone: [facility] Start: 01-19-2024 End: 01-19-2024 ambulatory BUTTER FAT TESTERSriram Bhat Barbararbacher Work Phone: [facility] Work Phone: Start: 01-15-2024 Registered Recurring BUTTER FAT TESTER Sally jack Barbararbacher [facility] Start: 01-13-2024 Non-patient / Non-visit BUTTER FAT TESTER Leonel hardin Barbararbacher Work Phone: [facility] Work Phone: Start: 01-12-2024 Registered Recurring BUTTER FAT TESTER Sally jack Barbararbacher [facility] Work Phone: Start: 01-12-2024 Non-patient / Non-visit BUTTER FAT TESTER Leonel hardin Barbararbacher Work Phone: [facility] Work Phone: Start: 01-12-2024 End: 01-12-2024 Patient encounter procedure BUTTER FAT TESTERSriram Bhat Giselaacher Work Phone: [facility] Start: 01-12-2024 End: 01-12-2024 ambulatory BUTTER FAT TESTER Perlita Giselaacher Work Phone: [facility] Work Phone: Start: 01-07-2024 Non-patient / Non-visit BUTTER FAT TESTER Leonel evansmelania Barbararbacher Work Phone: [facility] Work Phone: Start: 01-07-2024 End: 01-07-2024 Patient encounter procedure BUTTER FAT TESTER Perlita Giselaacher Work Phone: [facility] Work Phone: Start: 01-07-2024 Registered Recurring BUTTER FAT TESTER Sally lawrencebreanna Liu Work Phone: [facility] Work Phone: Start: 01-07-2024 End: 01-07-2024 Patient encounter procedure BUTTER FAT TESTERSriram Bhat Giselaacher Work Phone: [facility] Work Phone: Start: 01-07-2024 End: 01-07-2024 Patient encounter procedure BUTTER FAT TESTER Perlita Giselaacher Work Phone: [facility] Start: 01-07-2024 End: 01-07-2024 ambulatory BUTTER FAT TESTER Perlita Giselaacher Work Phone: [facility] Work Phone: Start: 01-06-2024 Non-patient / Non-visit BUTTER FAT TESTER Leonel wilfred Jimenezrbacher Work Phone: [facility] Work Phone: Start: 01-05-2024 Non-patient / Non-visit BUTTER FAT TESTERSriram Jimenezrbacher Work Phone: [facility] Work Phone: Start: 01-01-2024 Registered Recurring MARY LOU jack Rohrbacher [facility] Start: 12-31-2023 Non-patient / Non-visit BUTTER FAT TESTERSriram hardin Barbararbacher Work Phone: [facility] Work Phone: Start: 12-30-2023 Non-patient / Non-visit BUTTER FAT TESTER Leonel hardin Barbararbacher Work Phone: [facility] Work Phone: Start: 12-23-2023 End: 12-23-2023 Patient encounter procedure BUTTER FAT TESTERSriram Bhat Barbararbacher Work Phone: [facility] Work Phone: Start: 12-23-2023 End: 12-23-2023 ambulatory FRANCIS GINNY Not Available Start: 12-22-2023 End: 12-22-2023 Patient encounter procedure BUTTER FAT TESTERSriram Bhat Barbararbacher Work Phone: [facility] Work Phone: Start: 12-18-2023 Non-patient / Non-visit BUTTER FAT TESTERSriram Jimenezrbacher Work Phone: [facility] Work Phone: Start: 12-17-2023 End: 12-17-2023 Patient encounter procedure BUTTER FAT TESTERSriram Bhat Barbararbacher Work Phone: [facility] Work Phone: Start: 12-08-2023 End: 12-08-2023 ambulatory BUTTER FAT TESTER Perlita Liu Work Phone: [facility] Work Phone: Start: 12-08-2023 End: 12-08-2023 Patient encounter procedure MARY LOU Liu Work Phone: [facility]Pet [facility] Work Phone: Start: 12-05-2023 End: 12-05-2023 ambulatory BUTTER FAT TESTERSriram Liu Work Phone: [facility] Work Phone: Start: 12-05-2023 End: 12-05-2023 Departed Referred MARY LOU Liu Work Phone: [facility] Work Phone: Start: 12-02-2023 End: 12-02-2023 ambulatory MARY LOU Liu Work Phone: [facility] Work Phone: Start: 12-02-2023 End: 12-02-2023 Patient encounter procedure MARY LOU Liu Work Phone: [facility]Electrodiagnostics Work Phone: Start: 11-28-2023 Non-patient / Non-visit MARY LOU Liu Work Phone: [facility] Work Phone: Start: 11-28-2023 End: 11-28-2023 Admission to same day surgery center MARY LOU Liu Work Phone: [facility] Work Phone: Start: 11-28-2023 End: 11-28-2023 ambulatory MARY LOU Liu Work Phone: [facility] Work Phone: Start: 11-11-2023 End: 11-11-2023 ambulatory [facility] Work Phone: Start: 11-11-2023 End: 11-11-2023 Patient encounter procedure [facility] Work Phone: Start: 08-27-2023 End: 08-27-2023 Patient encounter procedure [facility] Work Phone: Start: 08-22-2023 End: 08-22-2023 Patient encounter procedure [facility] G[facility] Work Phone: Start: 08-01-2023 Clinisync Result Encounter Shaikh Joseph ROE Work Phone: [facility] External [facility] Unsolicited Start: 08-01-2023 Clinisync Result Encounter Shaikh Joseph ROE Work Phone: [facility] Unsolicited Procedures Date Procedure Procedure Detail Performing Clinician Start: 09-08-2024 Endoscopy of esophagus Perlita carlos BUTTER FAT TESTER Work Phone: Start: 07-01-2024 ISTAT XRAY CRE Nabil Fox DO Work Phone: Start: 07-01-2024 MRI of orbit, face and neck with contrast Perlita Liu APRN Work Phone: Start: 06-25-2024 Positron emission tomography with computed tomography Perlita Liu APRN Work Phone: Start: 06-25-2024 GLUCOSE POCT GLUCOMETERS Nabil knight DO Work Phone: Start: 02-18-2024 Comprehensive metabolic panel Nabil Fox DO Work Phone: Start: 02-03-2024 Esophagogastroduodenoscopy MARY LOU Liu Work Phone: Start: 01-23-2024 Plain chest X-ray BUTTER FAT TESTERSriram Liu Work Phone: Start: 12-08-2023 Positron emission tomography with computed tomography MARY LOU Liu Work Phone: Start: 11-28-2023 Esophagogastroduodenoscopy BUTTER FAT TESTERSriram Liu Work Phone: Start: 08-01-2023 NELIA BONDS AND ESTEBAN Ruiz MD Work Phone: Plan of Treatment Date Care Activity Detail Author Start: 03-08-2025 End: 03-08-2025 Patient encounter procedure 03/08/2025 10:15 AM EDT Office Visit [facility] [place] [address] [place] [address] Jaswant Zaidi, [address] [place], [place] [id number] [facility] [place] Start: 02-28-2025 End: 02-28-2025 Patient encounter procedure 02/28/2025 9:30 AM EDT Office Visit [facility] [address] [facility] [address] [place] [address] Rupert Rolle MD [address] [facility] [address] [id number] [facility] Start: 02-21-2025 Influenza vaccination Influenz a Vaccine (Season Ended) [facility] Start: 12-21-2024 End: 12-21-2024 Patient encounter procedure [facility] Start: 12-14-2024 End: 12-14-2024 Patient encounter procedure 12/14/2024 9:45 AM EDT Office Visit [facility] [place] [address] [place] [phone] Jaswant Zaidi, DO [address] [place] [address] [facility] [place] Start: 11-29-2024 End: 11-29-2025 US.doppler Carotid arteries - bilateral Vascular US carotid artery duplex bilateral Imaging Routine 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) Asymptomatic bilateral carotid artery stenosis Expected: 11/29/2024 (Approximate), Expires: 11/29/2025 [facility] Work Phone: Comment on above: Expected: 11/29/2024 (Approximate), Expires: 11/29/2025 Start: 11-29-2024 End: 11-29-2024 Patient encounter procedure 11/29/2024 9:30 AM EDT Office Visit [facility] [address] [facility] [address] [place] [address] Bryan Juarez, FAMILY AND CONSUMER SCIENCE PROFESSOR [address], [facility] [address] [place] [address] Arrived [facility] Comment on above: Arrived Start: 11-02-2024 Patient referral [facility] Work Phone: Start: 11-02-2024 End: 11-02-2024 Patient encounter procedure 11/02/2024 9:45 AM EDT Office Visit [facility] [place] [address] [place] [address] Jaswant Zaidi, DO [address] [place] [address] [facility] [place] Start: 09-21-2024 End: 09-21-2024 Patient encounter procedure 09/21/2024 9:45 AM EDT Office Visit [facility] [place] [address] [place] [address] Jaswant Zaidi, DO [address] [place] [address] Arrived [facility] [place] Comment on above: Arrived Start: 09-08-2024 End: 09-08-2024 [facility] Start: 08-10-2024 End: 08-10-2024 Patient encounter procedure 08/10/2024 10:45 AM EST Office Visit [facility] [place] [address] [place] [address] Jaswant Zaidi, DO [address] [place] [address] [facility] [place] Start: 06-29-2024 End: 06-29-2024 Patient encounter procedure [facility] [place] Comment on above: Arrived Start: 06-03-2024 End: 06-03-2024 Patient encounter procedure 06/03/2024 9:30 AM EST Office [facility] [address] [place] [phone] Shanelle Mallory, DO [address] [place] [address] [facility] Start: 05-11-2024 End: 05-11-2024 Patient encounter procedure [facility] [place] Comment on above: Arrived Start: 03-30-2024 End: 03-30-2024 Patient encounter procedure [facility] [place] Comment on above: Arrived Start: 02-24-2024 End: 02-24-2024 Patient encounter procedure [facility] [place] Comment on above: Arrived Start: 02-22-2024 Influenza vaccination Influenza Vacc ine (#1) [facility] Start: 02-19-2024 End: 02-19-2024 Patient encounter procedure 02/19/2024 11:15 AM EDT Office Visit [facility] [address] [place] [phone] Shanelle Mallory, DO [address] [place] [address] [facility] Start: 02-19-2024 [facility] Start: 02-17-2024 [facility] Start: 02-10-2024 [facility] Start: 02-05-2024 [facility] Start: 02-03-2024 End: 02-03-2024 [facility] Start: 01-29-2024 [facility] Start: 01-22-2024 [facility] Start: 01-15-2024 [facility] Start: 01-08-2024 [facility] Start: 01-01-2024 [facility] Start: 01-01-2024 [facility] Start: 12-22-2023 [facility] Work Phone: Start: 12-17-2023 Patient referral [facility] Work Phone: Start: 11-28-2023 Patient referral [facility] Work Phone: Start: 11-28-2023 [facility] Start: 11-11-2023 Patient referral [facility] Work Phone: Start: 08-25-2023 End: 08-25-2023 Patient encounter procedure 08/25/2023 9:30 AM EST Office Visit [facility] [address] [place] [address] Shaikh Ruiz MD [address] [place] [address] [facility] Start: 2017 Pneumococcal Vaccine : 65+ Years (1 of 1 - PCV) Pneumococcal Vaccine: 65+ Years (1 of 1 - PCV) [facility] Start: 2002 Pneumococcal Vaccine : 65+ Years (1 of 1 - PCV) Pneumococcal Vaccine: 65+ Years (1 of 1 - PCV) [facility] Start: 1958 Pneumococcal Vaccine : 65+ Years (1 - PCV) Pneumococcal Vaccine: 65+ Years (1 - PCV) [facility] Start: 1952 Medicare Annual Well ness (AWV) Medicare Annual Wellness (AWV) [facility] Start: 1952 Screening for malign ant neoplasm of colon [facility] CBC W Auto Different ial panel - Blood CBC auto differential Lab Routine 02/18/2024 12:35 PM EDT [facility] Work Phone: Comprehensive metabo lic 1999 panel - Serum or Plasma [facility] Comprehensive metabo lic 1999 panel - Serum or Plasma [facility] Comprehensive metabo lic 1999 panel - Serum or Plasma [facility] Comprehensive metabo lic 1999 panel - Serum or Plasma [facility] Comprehensive metabo lic 1999 panel - Serum or Plasma [facility] Computed tomography for radiotherapy planning [facility] Patient Education [facility] Work Phone: Patient referral [facility] Work Phone: [facility] Immunizations Immunization Date Immunization Notes Care Provider Fa cility 04-15-2023 COVID-19 (PFIZER) [id number] 12Y and older [facility] 04-15-2023 Fluzone QIV High-Dos e 65YR+ [facility] 04-15-2023 influenza virus vaccine, unspecified formulation Nabil Ruddy DO Work Phone: [facility] Payers Date Payer Category Payer Medicare (Managed Care) [employer] [place] [employer] [id number] 2024 Unknown [id number] 2023 Self-pay 2023 Medicaid [employer] MEDICARE A DVANTAGE [id number] 2023 Private Health Insurance [facility] [id number] 2022 Unknown [employer] D EVOTED Lindsey Shell [id number] 2022-Present [address] [place] [address] [id number]. [id number] 2017 Medicare [id number]. [id number] 1952 Unknown [id number] 2.840.1.327074.3.579.2. 1258 1952 Unknown [id number] .840.1.326787.3.579.2. 1258 1952 Unknown [id number] 2.16.840.1.759907.3.579.2. 1258 1952 Unknown [id number] 2.16.840.1.594882.3.579.2. 1258 1952 Unknown [id number] 2.16840.1.257695.3.579.2. 1258 1952 Unknown [id number] 2.16.840.1.086283.3.579.2. 1258 1952 Unknown [id number] 2.16.840.1.212431.3.579.2. 1258 1952 Unknown [id number] 2.16.840.1.040166.3.579.2. 1258 1952 Unknown [id number] 2.16.840.1.532760.3.579.2. 1258 1952 Unknown [id number] 2.16.840.1.796390.3.579.2. 1258 1952 Unknown [id number] 2.16.840.1.277585.3.579.2. 1258 1952 Unknown [id number] 2.16.840.1.056007.3.579.2. 1258 1952 Unknown [id number] 2.16.840.1.531463.3.579.2. 1258 1952 Unknown [id number] 2.16.840.1.421470.3.579.2. 1258 1952 Unknown [id number] 2.16.840.1.946083.3.579.2. 1258 1952 Unknown [id number] 2.16.840.1.182289.3.579.2. 125 Medicare Medicare [id number] Unknown [id number] 2.16.840.1.534289.3.579.2. 531 Unknown [id number] 2.16.840.1.690739.3.579.2. 531 Unknown [id number] 2.16.840.1.603888.3.579.2. 531 Unknown [id number] 2.16.840.1.753314.3.579.2. 531 Unknown [id number] 2.16.840.1.625599.3.579.2. 531 Unknown [id number] 2.16.840.1.982991.3.579.2. 531 Unknown [id number] 2.16.840.1.698294.3.579.2. 531 Unknown [id number] 2.16.840.1.666139.3.579.2. 531 Unknown [id number] 2.16.840.1.917852.3.579.2. 531 Unknown [id number] 2.16.840.1.148390.3.579.2. 531 Unknown [id number] 2.16.840.1.945461.3.579.2. 531 Unknown [id number] 2.16.840.1.709535.3.579.2. 531 Unknown [id number] 2.16.840.1.651789.3.579.2. 531 Unknown [id number] 2.16.840.1.551580.3.579.2. 531 Unknown [id number] 2.16.840.1.785311.3.579.2. 531 Unknown [id number] 2.16.840.1.944573.3.579.2. 531 Social History Date Type Detail Facility Start: 06-24-2023 End: 11-29-2024 Tobacco smoking status [facility]IS Ex-smoker [facility] Start: 06-23-2019 End: 06-23-2019 History of tobacco use Current smoker [facility] Start: 06-23-2019 End: 06-23-2019 History of tobacco use Cigarette Smoker [facility] Start: 06-24-2023 End: 11-29-2024 Tobacco use and exposure Smokeless tobacco non-user [facility] Start: 06-24-2023 End: 12-14-2024 Alcohol intake Current drinker of alcohol (finding) [facility] Start: 06-24-2023 End: 12-14-2024 History of Social function [facility] Start: 06-24-2023 End: 12-14-2024 Tobacco use panel [facility] Start: 06-24-2023 Alcohol Comment OCCASSIONAL [facility] Start: 1950 Sex Assigned At Not on file [facility] Start: 1950 Sex Assigned At Male F [facility] How often to you hav e a [...] Caffeine: 1-2 cups per day [facility] Start: 08-17-2024 End: 11-02-2024 Sex Male (finding) [facility] Start: 11-29-2024 Alcohol Comment Caffeine: 1 cu ps per day [facility] Goals Date Patient Goal Desired Activity /State Clinical Notes 11-28-2023 to 12-14-2024 Jaswant Zaidi, DO - 12/14/2024 9:45 AM David Juarez, SUZIE - 11/29/2024 7:30 AM Alla Zaidi, DO - 11/02/2024 9:45 AM EDT Note Date & Type Note Facility 12-14-2024 History of Present illness Narrative Formatting of this note might be differe nt from the original. 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 Swallowing is okay, not losing any weight. Review of Systems ROS The specialty specific [...] normal Nares patent. Septal deviation to the No evidence of polyp, mass or pus [...] of normal size and configuration Oropharynx: Tonsils atrophic Posterior pharyngeal wall no evidence of tumor Neck: No evidence of palpable abnormality Thyroid [...] and base of tongue appear without lesion Mild post radiation changes of the epiglottis were noted, nothing suggestive of either new or recurrent tumor. Assessment/Plan Valente was seen today for cancer. Diagnoses and all orders for this visit: Malignant neoplasm of hypopharynx (HCC) (Primary) Comments: No clinical evidence of either recurrent or new disease, I will see him back in 3 months History of head and neck radiation Comments: See above documented in this encounter [facility] 11-29-2024 History of Present illness Narrative Formatting of this note is different fro m the original. Images from the original note were not included. CHIEF COMPLAINT REASON FOR VISIT : FAMILY AND CONSUMER SCIENCE PROFESSOR HPI: Valente Lucio is a 74 y.o. male who presents for management of stroke. Medical history includes COPD, hyperlipidemia, restless legs syndrome, BPH, generalized anxiety, carotid stenosis, carpal tunnel syndrome, periodic limb movement disorder, squamous cell carcinoma of the hypopharynx and MEDHAT. His stroke was in [place] in 2019. He had left CEA in 2020. His last ultrasound was 3 years ago. He previously saw Dr. De León. He continues to have gait instability and ambulates with a cane. He has left hemiparesis/spacticity and dysphagia. He falls frequently. He loses his balance and falls, his last fall was yesterday. He has drop foot on the left and has an AFO. He has paresthesias and numbness on the left side that is constant. He has trouble swallowing. He underwent treatment for throat cancer and had radiation and chemotherapy. He had esophageal dilatation about 2 months ago. He denies headaches, dizziness, vision changes. It takes him a bit to get up and moving but after that he does well. He works throughout the day around the house. He gets random spasms and jerks in his left leg and left arm. Botox and muscle relaxer made that worse. He denies other concerns. CURRENT MEDICATIONS: ALLERGIES/DISCONTINUE MEDICATIONS Current Outpatient Medications Medication Instructions Aspirin Low Dose 81 MG chewable tablet Calcium-Vitamin D-Iron (CALCIUM 600 IRON/D PO) 1 tablet, Daily citalopram (CELEXA) 20 mg, Oral, Daily fentaNYL (Duragesic) 12 MCG/HR fluconazole (Diflucan) 100 MG tablet lisinopril 20 MG tablet losartan (Cozaar) 50 MG tablet Every 24 hours mometasone (Elocon) 0.1 % cream omeprazole (PRILOSEC) 40 mg, Daily ondansetron ODT (Zofran-ODT) 8 MG disintegrating tablet oxyCODONE (Roxicodone) 5 MG/5ML solution Every 6 hours PRN pregabalin (LYRICA) 150 mg, Oral, 3 times daily rOPINIRole (Requip) 2 MG tablet Take 0.5 tablets (1 mg) by mouth Daily before meals AND 1 tablet (2 mg) at bedtime. rosuvastatin (Crestor) 20 MG tablet Every 24 hours scopolamine (Transderm-Scop) 1 mg/72 hr patch 72 hour patch silver sulfADIAZINE (Silvadene) 1 % cream Allergies Allergen Reactions Baclofen Other Reaction(s): Muscle Stiffness Other Reaction(s): muscle stiffness Cyclobenzaprine Other Reaction(s): Muscle Stiffness Other Reaction(s): muscle stiffness Gabapentin Other Reaction(s): muscle stiffness Onabotulinumtoxina Other Reaction(s): muscle stiffness Onabotulinumtoxina (Cosmetic) Other Reaction(s): Not available Tizanidine Other Reaction(s): muscle stiffness There are no discontinued medications. PAST MEDICAL HISTORY: SURGICAL/SOCIAL/FAMILY HISTORY DEPRESSION SCREEN: Past Medical History: Diagnosis Date Anxiety and depression (CMS/HCC) Well controlled on current regimen. On Citalopram. BPH (benign prostatic hyperplasia) Constipation 02/21/2024 Cough 02/21/2024 Depression (CMS/HCC) 12/02/2023 Frequent falls 12/02/2023 History of tobacco use 12/02/2023 Hypercholesterolemia ([facility]) Hypertension ([facility]) At goal. denies orthostasis Hypertension ([facility]) 12/02/2023 Left hemiplegia ([facility]) 12/02/2023 Long-term use of aspirin therapy 06/26/2024 Oropharyngeal mass 12/02/2023 Osteoarthritis of knee 09/25/2021 Pain in clavicular joint Bony abnormality noted over right clavicle. Reports this has been present since but he has noticed that it has increased in size recently Primary osteoarthritis of right knee 12/02/2023 Restless leg H/o RLS worsened since his stroke. Likely familial as his mother, one sister has it too. On Lyrica and Requip. He reports his symptoms are worse on left leg. He rarely experience symptoms in UE too. ' He has been using two of Lyrical at night and uses one Lyrica in morning. Rheumatoid arthritis ([facility]) Stroke ([facility]) Throat cancer ([facility]) 11/2023 Past Surgical History: Procedure Laterality Date GASTROSTOMY TUBE PLACEMENT 02/03/2024 LEG SURGERY Left 2004 LT thigh hematoma OTHER SURGICAL HISTORY vascular surgery on carotid PANENDOSCOPY 12/05/2023 Social History Tobacco Use Smoking status: Former Types: Cigarettes Start date: 2019 Quit date: 1970 Years since quittin.4 Smokeless tobacco: Never Vaping Use Vaping status: Never Used Substance Use Topics Alcohol use: Yes Alcohol/week: 40.0 standard drinks of alcohol Types: 40 Cans of beer per week Comment: Caffeine: 1 cups per day Drug use: Yes Types: Marijuana Comment: PAIN/ANXIETY /STIFFNESS Family History Problem Relation Name Age of Onset No Known Problems Mother No Known Problems Father Hypertension Other Depression: Not at risk (06/24/2023) PHQ-2 PHQ-2 Score: 0 REVIEW OF SYMPTOMS: Review of Systems Constitutional: Positive for activity change and appetite change. HENT: Positive for trouble swallowing. Negative for congestion and voice change. Eyes: Negative for visual disturbance. Respiratory: Positive for cough. Negative for shortness of breath. Cardiovascular: Negative for chest pain and palpitations. Gastrointestinal: Negative for abdominal pain, nausea and vomiting. Genitourinary: Negative for difficulty urinating. Musculoskeletal: Positive for back pain, myalgias and neck pain. Skin: Negative for rash. Neurological: Positive for weakness and numbness. Negative for dizziness, tremors, light-headedness and headaches. Psychiatric/Behavioral: Positive for agitation and sleep disturbance. The patient is nervous/anxious. OBJECTIVE: 11/29/2024 9:11 AM 11/02/2024 9:53 AM 09/21/2024 9:35 AM Vitals BMI 19.88 kg/m2 22.96 kg/m2 22.96 kg/m2 BSA (m2) 1.72 m2 1.89 m2 1.89 m2 Systolic 130 Diastolic 70 Height (in) 5' 9 5' 10 5' 10 Weight (lb) 134.6 160 160 Visit Report Report Report Report EXAM: Neurological Exam Mental Status Awake, alert and oriented to person, place and time. Recent and remote memory are intact. Speech is normal. Language is fluent with no aphasia. Attention and concentration are normal. Fund of knowledge is appropriate for level of education. Cranial Nerves CN II: Visual gonzalez full to confrontation. CN III, IV, : Extraocular movements intact bilaterally. Normal lids and orbits bilaterally. Pupils equal round and reactive to light bilaterally. CN V: Facial sensation is normal. CN VII: Full and symmetric facial movement. CN VIII: Hearing is normal. CN IX, X: Palate elevates symmetrically. Normal gag reflex. CN XI: Shoulder shrug strength is normal. CN XII: Tongue midline without atrophy or fasciculations. Motor Left pronator drift. Left hemiparesis. Right Left Deltoid 5 4 Biceps 5 Brachioradialis 5 4 Triceps 5 4 Finger flexor 5 4 Finger extensor 5 4 Glutei 5 4 Hip abductor 5 4 Hip adductor 5 4 Iliopsoas 5 4 Quadriceps 5 4 Anterior tibialis 5 4 Posterior tibialis 5 4 Ankle dorsiflexor 5 2 Ankle plantar flexor 5 4 Sensory Light touch is normal in upper and lower extremities. Temperature abnormality: Decreased in the right hand compared to the left. Vibration abnormality: Decreased in the LLE compared to the right. Decreased at the great toe bilaterally. Reflexes Right Left Brachioradialis 2+ 3+ Biceps 2+ 3+ Triceps 2+ 3+ Patellar 2+ 3+ Achilles 2+ 3+ Right pathological reflexes: Timothy's absent. Crossed adductor absent. Left pathological reflexes: Timothy's absent. Crossed adductor present. Coordination Right: [id number]-[id number] normal. Rapid alternating movement normal.Left: Jhssro-hi-mobq abnormality: Rapid alternating movement abnormality: Difficulty with finger to nose and LELA on the left due to weakness. Gait Casual gait: Unsteady gait with spacticity on the left. Ambulates with a cane. Unable to tandem or heel/toe walking. PROCEDURE: NONE ASSESSMENT AND PLAN: EVALUATION: 08/31/2024 modified barium swallow recommended mechanical soft solids, thin liquids via spoon only. Meds taken with puree. GI consult and speech therapy recommended. 05/14/2023 total cholesterol 92, triglycerides 50, HDL 47, LDL 35 07/01/2024 MRI scan of orbits, face, and neck without evidence of mass, soft tissue swelling or abnormal enhancement. Previous revision of slightly increased radiotracer accumulation within the oropharynx not visible. 06/25/2024 PET tumor scan showed interval resolution of abnormal hypermetabolism in the posterior pharynx in the medial right. Resolution of hypermetabolism in the left pharyngeal lymph node and bilateral L2 lymph nodes consistent with adequate response to therapy. Increased hypermetabolism identified in the right portion of the tongue near the base which may correspond with misregistration and or secretions. Site of malignant focus should be excluded. Focal hypermetabolism identified in the right parapharyngeal region may correspond to muscular activity versus residual disease. No developing distal hypermetabolic metastatic disease. EMG RUE severe sensory and mild motor median neuropathy consistent with a moderate carpal tunnel syndrome Right MCA Stroke 74 y.o. male who presents for management of stroke. Medical history includes COPD, hyperlipidemia, restless legs syndrome, BPH, generalized anxiety, carotid stenosis, carpal tunnel syndrome, periodic limb movement disorder, squamous cell carcinoma of the hypopharynx and MEDHAT. His stroke was in [place] in 2020. He had CEA in 2020. Stroke risk factors were discussed. He needs to continue with his PCP to monitor his cholesterol, he is on a statin. I do recommend he continue his aspirin for secondary stroke prevention. He needs an updated carotid ultrasound to insure he does not have critical carotid stenosis. PLAN: Restart aspirin 81mg daily Continue to follow with PCP for management of stroke risk factors. Goal LDL < 70 I will order a carotid US to assess for stenosis that needs to be addressed Stroke risk factors discussed Could consider PT for balance and strengthening Consider changing requip to Keppra for reverse myoclonus Gait Instability He has gait instability that is likely multifactorial. 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 In addition he has bilateral sensory loss to vibration in his distal lower extremities that can contribute to balance issues. He falls frequently. He may benefit from EMG of BLE to further define if there is a peripheral nerve process. He drinks on a daily basis which in itself increases risk of falls and is toxic to nerves and can contribute to peripheral neuropathy. I counseled the patient on fall precautions. I discussed the high risk of trauma and debility associated with falls. Patient verbalized understanding. PLAN: Consider EMG of BLE I counseled the patient on fall precautions. I discussed the high risk of trauma and debility associated with falls. Patient verbalized understanding. Would recommend cessation of alcohol as it is toxic to nerves Consider PT for balance The nurse practitioner assisted the physician in the development of the history, portions of the physical exam, and implementation of the plan of care under direct physician supervision. 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 documented in this encounter [facility] 11-02-2024 History of Present illness Narrative Formatting of this note might be differe nt from the original. Subjective Patient ID: HPI Patient presents today for follow-up. He is status post esophageal dilation a few weeks ago. Continues to swallow decently. Not losing weight. Review of Systems ROS The specialty specific [...] of normal size and configuration Oropharynx: Tonsils atrophic Posterior pharyngeal wall normal Neck: No evidence of palpable abnormality Thyroid without evidence of thyromegaly or mass. No cervical lymphadenopathy present. Mild fibrosis bilaterally Cardiovascular: Rate and Rhythm: Normal rate and regular rhythm. . Skin: General: Skin is warm and dry. Neurological: General: No focal deficit present. Mental Status: alert and oriented to person, place, and time. Assessment/Plan Valente was seen today for cancer. Diagnoses and all orders for this visit: Malignant neoplasm of larynx (Primary) Comments: Scope the patient today, I recently had him examined under anesthesia. History of head and neck radiation Comments: See above Patient encouraged to chew and swallow, I will see him back in 6 weeks and perform endoscopy at that time documented in this encounter [facility] 10-11-2024 Evaluation note Diagnosis Onset Date Resolution Squamous cell carcinoma of hypopharynx acute October 11, 2024 10:47am Falls frequently acute October 1:28pm Oropharyngeal dysphagia acute M ay 2024 1:28pm Stroke acute November 02, 2024 1:28pm [facility] Work Phone: 1(931) 736-416804-21-2025 [facility] [place] [address] Cancer Center Note Signed Patient: Valente Lucio MR#: [id number] : 1950 Acct:[id number] Age/Sex: 74 / M Type: DEP AMB Date of Service: 10/11/24 Copies to: DO Perlita Garcia APRN, DOCTOR OF MEDICINE~ Assessment & Plan (1) Squamous cell carcinoma of hypopharynx: Plan: Sees ENT q6 weeks, return to clinic January 2025 for physical exam. 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 p16 negative February 27, 2024 patient completed definitive concurrent chemoradiation to a dose of 70.67 Benjamin in34 fractions with delivery of lower doses to the intermediate risk sites of disease and elective javier region. He received concurrent CarboTaxol due to hearing issues at baseline. He required placement of the G-tube and did require 1 week break due to functional decline and moist desquamation with bilateral neck. Consequently additional fraction was added for compensation of the last biologic dose. Jun 2024 Posttreatment PET was concerning for residual uptake in the right lateral tongue. Exams have been negative and subsequent MRI of the face and orbits was also negative. Persistent dysphagia and G tube dependence since completion of CCRT. In August 2024 - taken to OR for EGD and dilation of esophagus. Mucosal biopsies negative. Clinically improved today after esophageal dilatation. Weight is up and I am pleased with his oral intake. Discussed option of guaifenesin as well as scopolamine patch for thick sputum however patient declines. Exam is ANA PAULA. He sees ENT every 6 weeks so we will see him back in 3 months. At that point he will be close to a year out from treatment. Low threshold for imaging due to p16 negativity andextent of disease. History of Present Illness HPI 74 year-old male referred to GI for iron deficiency anemia. Offered EGD and colonoscopy however declined colonoscopy. Oncologic history: November 28, 2023 EGD was completed upon insertion of the scope into the posterior oropharynx there was a masslike appearance to the mucosa which was extremely vascular and immediately started bleeding upon contact. Endoscope was advanced into the esophagus. Patient was further referred to ENT for evaluation and biopsy of the mass. December 02, 2023 patient evaluated in consultation by ENT. Fiberoptic nasopharyngolaryngoscopy showed the base of tongue and vallecula as well as bothsurfaces of the epiglottis to be normal. Scope was then advanced towards the level of the pharyngeal inlet. Exophytic neoplastic process emanating from the right lateral pharyngeal wall above the arytenoid. Is difficult to tell how much of the pharyngeal wall and/or piriform sinus was involved because the piriform sinuses collapsed. Normal bilateral vocal cord movement. December 03, 2023 CT of the neck with contrast showed asymmetric mucosal thickening on either side of midline within the oropharynx left greater than right. Soft tissue prominence accentuated by cervicalthoracic scoliosis and anterior osteophyte formation C5-C7. No significant cervical lymphadenopathy. December 05, 2023 hypopharyngeal wall biopsy confirmed moderate lead to poorly differentiated squamous cell carcinoma p16 negative. Right AE fold biopsy also positive for squamous cell as well as the right lateral piriform sinus. December 08, 2023 PET/CT showed masslike thickening involving the posterior pharynx FDG avid SUV max 9.Abnormal activity seen in the region of the left parapharyngeal space corresponding to soft tissue within the region on concurrent CT. FDG avid bilateral level 2 lymph nodes. February 27, 2024 patient completed definitive concurrent chemoradiation to a dose of 70.67 Benjamin in34 fractions with delivery of lower doses to the intermediate risk sites of disease and elective javier region. He received concurrent CarboTaxol due to hearing issues at baseline. Patient had a challe nging radiation course and after approximately 20 fractions he began to experience severe dysphagiawith an inability to swallow. His weight decreased by 10 kg and he had an abnormal barium swallow requiring placement of a G-tube on February 03, 2024. He did required a 1 week treatment break due to functional decline and severe skin reaction. He resumed radiation on February 10 and a single fraction was added to compensate for the last dose biologically. 1 month follow-up. He saw ENT February 23 towards the end of his chemoradiation. laryngoscopy was done which showed edema and radiation change in the glottic paraglottic structures with no obstructing lesions. No obvious tumor was noted. June 25, 2024 posttreatment PET confirms interval resolution of the abnormal hypermetabolism in the posterior pharyngeal region with resolution of the left pharyngeal lymph node and bilateral level2 lymph nodes consistent with an adequate response to therapy. There is increased hypermetabolism identified in the right portion of the tongue at the base. malignant focus should be excluded. Exams have been negative (last scope July 02, 2024) and subsequent MRI of the face and orbits was also negative for any residual disease. Persistent dysphagia and G tube dependence since completion of CCRT. In August 2024 - taken to OR for EGD and dilation of esophagus. Mucosal biopsies negative. Patient significantly improved today after recent dilatation. Weight is up. BMI 21.7 and he is tolerating p.o. intake without pain. Does complain of inability to clear thick sputum occasionally as well as mild xerostomia. Patient previously had a CVA and states balance slightly worse. Intake Vitals/Pain Assessment 10/11/24 11:00 10/11/24 11:28 Height 5 ft 9 in Weight 65.771 kg 65.7 kg BMI 21.4 Body Fat % 36.90 Intake Visit Reasons: Follow Up, H+N Allergies baclofen Allergy (Verified 09/08/24 08:02) muscle stiffness cyclobenzaprine (From Flexeril) Allergy (Verified 09/08/24 08:02) muscle stiffness gabapentin Allergy (Verified 09/08/24 08:02) muscle stiffness onabotulinumtoxinA (From Botox) Allergy (Verified 09/08/24 08:02) muscle stiffness tizanidine Allergy (Verified 09/08/24 08:02) muscle stiffness [facility] Medical History Medical History (Updated 09/08/24 @ 08:07 by Linda Pizarro RN) History of sleep apnea I used to use a cpap but I dont anymore Tinnitus History of gastrostomy tube placement Oropharyngeal mass High cholesterol Squamous cell carcinoma of hypopharynx chemo and radiation Hypertension Dysphagia Restless leg Stroke affected left side Oropharyngeal dysphagia Surgical History Surgical History History of carpal tunnel surgery of right wrist History of surgery on lower extremity left thigh hematoma History of carotid endarterectomy right Family History Family History Sister Breast cancer Social History Social History Smoking status: Former smoker What tobacco products do you use: cigarettes Smoking quit date/years:<= 15 years ago Physical Exam EXAM Physical Exam: KPS 80 utilizes cane for ambulation General: alert, no acute distress HEENT: normocephalic, EOMI, no trismus noted. Oral cavity- patient is edentulous. Dry mucosa however improved from prior exam. Buccal and gingival mucosa without lesion. Oral tongue is soft, mobile. No palpable abnormality. Bilateral tonsillar pillars within normal limits, as is the posterior pharyn gealwall. Neck: ROM intact. No significant fibrosis. No residual radiation skin changes noted. CHEST: normal work of breathing on room air. Abdomen: non acute MSK: Right clavicle with obvious displacement-chronic Results - [facility] (Rad Onc) LAB RESULTS Glucose 88 mg/dL (70-100) 09/06/24 07:25 09/06/24 BUN 9 mg/dL (7-25) 09/06/24 07:09/06/24 Creatinine 0.48 mg/dL (0.70-1.30) L 09/06/24 07:25 Est GFR (CKD-EPI) > 60.0 mL/Min 09/06/24 07:25 09/06/24 Sodium 136 mmol/L (136-145) 09/06/24 07:09/06/24 Potassium 4.1 mmol/L (3.5-5.1) 09/06/24 07:09/06/24 Chloride 102 mmol/L (98-107) 09/06/24 07:09/06/24 Carbon Dioxide 29.9 mmol/L (21.0-31.0) 09/06/24 07: 5 Anion Gap 8.2 mEq/L (6.0-15.0) 09/06/24 07:09/06/24 Calcium 9.0 mg/dL (8.6-10.3) 09/06/24 07:25 09/06/24 Social Determinants of Health Screening SDOH last assessed in clinic: 10/11/24 Will the patient participate in the screening?: Yes Do you worry about having a steady place to live?: No In the past 12 months, have you had to go without electric, gas, oil, or water in your home?: No Have you or anyone in your house had to go without enough food to eat?: No Has lack of reliable transportation kept you from medical appointments or from doing things needed for daily living?: No Has anyone in your support network made you feel unsafe for any reason?: No Does the patient want assistance with any of the above?: No Dictated By: Sweetie Mirza MD DD/ [id number] Signed By: 10/11/24 1138 [facility]04-01-2025 History of Present illness Narrative * Jaswant Zaidi DO - 09/21/2024 9:45 AM EDT Subjective Patient ID: HPI Patient presents today 1 week postop esophagoscopy with dilation and biopsies. Biopsies are negative. He says he is swallowing moderately better. Review of Systems ROS The specialty specific [...] normal Nares patent. Septal deviation to the No evidence of polyp, mass or pus bilaterally. Oral Cavity: No evidence of trismus Lips appear normal Dental poor Tongue of normal size and configuration, floor of mouth mucosa clear. Buccal mucosa shows no evidence of ulceration, mass or other abnormality Hard palate soft palate mucosa intact with no evidence of mass, ulceration or other abnormality Uvula of normal size and configuration Oropharynx: Tonsils Posterior pharyngeal wall dry mucosa Neck: No evidence of palpable abnormality Thyroid without evidence of thyromegaly or mass. No cervical lymphadenopathy present. Cardiovascular: Rate and Rhythm: Normal rate and regular rhythm. . Skin: General: Skin is warm and dry. Neurological: General: No focal deficit present. Mental Status: alert and oriented to person, place, and time. Assessment/Plan Valente was seen today for dysphagia. Diagnoses and all orders for this visit: Malignant neoplasm of oropharynx (Primary) Comments: No evidence of recurrence on today's exam, I will see him back in 6 weeks History of head and neck radiation Comments: See above Pharyngoesophageal dysphagia documented [facility] encounter[facility] [id number] History of Present illness Narrative* Jaswant Zaidi DO - 08/10/2024 10:45 AM EST Subjective Patient ID: HPI Patient presents today for cancer surveillance. Status post definitive chemoradiation for an advanced hypopharyngeal cancer diagnosed last year. His last radiation therapy was about December. Still having some issues with swallowing, feels like things just go down the way they were. Pretty much surviving on Jevity and oranges. He does not have a gastrostomy tube. Review of Systems ROS The specialty specific [...] of normal size and configuration Oropharynx: Tonsils atrophic Posterior pharyngeal wall normal Neck: No evidence of palpable abnormality Thyroid [...] ulceration or mass. Normal bilateral true vocal foldmotion is present. Bilateral piriform sinuses and base of tongue appear without lesion Still with some edema, both vocal cords are mobile. No gross aspiration but there is significant pooling of secretion. Assessment/Plan Valente was seen today for cancer. Diagnoses and all orders for this visit: Malignant neoplasm of hypopharynx (CMS/HCC) (Primary) Comments: No clinical evidence of recurrence of tumor. History of head and neck radiation Comments: I am going to obtain a esophagram and see him back following that. He may need esophageal dilation. documented in this encounterOzarks [facility] [id number] Evaluation note* Diagnosis Onset Date Resolution Status Admit Date Maxillary sinusitis acute Febru keith2024 9:54am Squamous cell carcinoma of hypopharynx acute October 11, 2024 10:47am [facility] Work Phone: 1([phone]) 212-892501-07-2025 History of Present illness Narrative* Jaswant Aguero Germancielo, - 06/29/2024 10:45 AM EST Subjective Patient ID: HPI Patient presents today for cancer surveillance. He is status post definitive chemoradiation for a very advanced hypopharyngeal cancer. He underwent a post treatment PET scan a few days ago. Got a significant uptake in the mid to posterior tongue on the right side. This was not present on the pretreatment PET. Otherwise the scan looks good. Still not swallowing very well. Review of Systems ROS The specialty specific [...] normal Nares patent. Septal deviation to the left No evidence of polyp, mass or pus bilaterally. Oral Cavity: No evidence of trismus Lips appear normal Dental Tongue of normal size and configuration, floor of mouth mucosa clear. Buccal mucosa shows no evidence of ulceration, mass or other abnormality Hard palate soft palate mucosa intact with no evidence of mass, ulceration or other abnormality Uvula of normal size and configuration Oropharynx: Tonsils atrophic Posterior pharyngeal wall normal Thorough examination to both the oral as well as the posterior tongue occluding palpation fails to reveal any abnormality, submucosal mass, etcetera. Neck: No evidence of palpable abnormality Thyroid [...] ulceration or mass. Normal bilateral true vocal foldmotion is present. Bilateral piriform sinuses and base of tongue appear without lesion . Examination of the tongue base does not show any abnormality. No obvious tumor. Still some stasis of secretions. Assessment/Plan Valente was seen today for cancer. Diagnoses and all orders for this visit: Malignant neoplasm of hypopharynx (CMS/HCC) (Primary) Comments: I spoke with Dr. Mirza about this yesterday, she is going to order an MRI to look at the tongue. No evidence of recurrent disease History of head and neck radiation Comments: I will see the patient back in 6 weeks documented in this encounterOzarks Medical [id number] Evaluation note* Diagnosis Onset Date Resolution Status Admit Date Squamous cell carcinoma of hypopharynx acute June 28 3:52pm Squamous cell carcinoma of hypopharynx acute July 06 11:10am Dysphagia acute July 15, 2024 12:59pm Oropharyngeal mass acute 2024 12:59pm S/P percutaneous endoscopic gastrostomy (PEG) tube placement acute July 15 12:59pm Squamous cell carcinoma of hypopharynx acute July 15 12:59pm Maxillary sinusitis acute 2024 9:54am [facility] Work Phone: 1([phone]) 190-265312-12-2024 History of Present illness Narrative* Shanelle Mallory DO - 06/03/2024 9:30 AM EST Images from the original note were not included. Valente Melgarjohn 1950 Valente Velazquezcarinajohn is a 73 y.o. male presents with chief complaint of Peg tube removal HPI: HPI Valente presents for removal of the feeding tube. He states he is not using it and want it removed. SUBJECTIVE: MEDICATIONS: ALLERGIES Current Outpatient Medications Medication Instructions Aspirin Low Dose 81 MG chewable tablet CHEW 1 (ONE) TABLET BY MOUTH DAILY citalopram (CELEXA) 20 mg, Oral, Daily fentaNYL (Duragesic) 12 MCG/HR Q72H fluconazole (Diflucan) 100 MG tablet Daily lisinopril 20 MG tablet TAKE ONE TABLET BY MOUTH EVERY DAY for 30 losartan (Cozaar) 50 MG tablet Every 24 hours mometasone (Elocon) 0.1 % cream Daily ondansetron ODT (Zofran-ODT) 8 MG disintegrating tablet Every 8 hours oxyCODONE (Roxicodone) 5 MG/5ML solution Every 6 hours PRN pregabalin (LYRICA) 150 mg, Oral, 3 times daily rOPINIRole (Requip) 2 MG tablet Take 0.5 tablets (1 mg) by mouth Daily before meals AND 1 tablet (2mg) at bedtime. rosuvastatin (Crestor) 20 MG tablet Every 24 hours scopolamine (Transderm-Scop) 1 mg/72 hr patch 72 hour patch apply one PATCH topically behind ear EVERY 3 DAYS FOR excessive secretions silver sulfADIAZINE (Silvadene) 1 % cream APPLY TO THE AFFECTED AREA(S) topically TWICE DAILY untilhealed Allergies Allergen Reactions Baclofen Other Reaction(s): Muscle Stiffness Other Reaction(s): muscle stiffness Cyclobenzaprine Other Reaction(s): Muscle Stiffness Other Reaction(s): muscle stiffness Gabapentin Other Reaction(s): muscle stiffness Onabotulinumtoxina Other Reaction(s): muscle stiffness Onabotulinumtoxina (Cosmetic) Other Reaction(s): Not available Tizanidine Other Reaction(s): muscle stiffness PAST MEDICAL HISTORY: SOCIAL HISTORY SURGICAL HISTORY: Past Medical History: Diagnosis Date Anxiety and depression (CMS/HCC) Well controlled on current regimen. On Citalopram. BPH (benign prostatic hyperplasia) Constipation 02/21/2024 Cough 02/21/2024 Depression (CMS/HCC) 12/02/2023 Frequent falls 12/02/2023 History of tobacco use 12/02/2023 Hypercholesterolemia (CMS/HCC) Hypertension (CMS/HCC) At goal. denies orthostasis Hypertension (CMS/HCC) 12/02/2023 Left hemiplegia (CMS/HCC) 12/02/2023 Oropharyngeal mass 12/02/2023 Osteoarthritis of knee 09/25/2021 Pain in clavicular joint Bony abnormality noted over right clavicle. Reports this has been present since but he has noticed that it has increased in size recently Primary osteoarthritis of right knee 12/02/2023 Restless leg H/o RLS worsened since his stroke. Likely familial as his mother, one sister has it too. On Lyrica and Requip. He reports his symptoms are worse on left leg. He rarely experience symptoms in UE too. ' He has been using two of Lyrical at night and uses one Lyrica in morning. 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 Social History Tobacco Use Smoking status: Former Current packs/day: 0.00 Types: Cigarettes Quit date: 2019 Years since quittin.9 Smokeless tobacco: Never Vaping Use Vaping status: Never Used Substance Use Topics Alcohol use: Yes Comment: Caffeine: 1-2 cups per day Drug use: Yes Types: Marijuana Comment: PAIN/ANXIETY /STIFFNESS Past Surgical History: Procedure Laterality Date GASTROSTOMY TUBE PLACEMENT 02/03/2024 LEG SURGERY Left 2004 LT thigh hematoma OTHER SURGICAL HISTORY vascular surgery on carotid PANENDOSCOPY 12/05/2023 FAMILY HISTORY Family History Problem Relation Name Age of Onset Hypertension Other REVIEW OF SYMPTOMS: Review of Systems OBJECTIVE: Visit Vitals Smoking Status Former Physical Exam ASSESSMENT AND PLAN: Assessment/Plan Problem List Items Addressed This Visit 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 I'll see him PRN documented in this encounterOzarks Medical [id number] History of Present illness Narrative* Jaswant Zaidi DO - 05/11/2024 10:30 AM EST Subjective Patient ID: HPI Patient presents today for cancer surveillance. He is status post chemoradiation for an advanced laryngal he is beginning to get better. Swallowing is a bit better. He is supposed to have his G-tube removed shortly. Review of Systems ROS The specialty specific [...] evidence of trismus Lips appear normal Dental decent Tongue of normal size and configuration, floor of mouth mucosa clear. Buccal mucosa shows no evidence of ulceration, mass or other abnormality Hard palate soft palate mucosa intact with no evidence of mass, ulceration or other abnormality Uvula of normal size and configuration Oropharynx: Tonsils small Posterior pharyngeal wall normal Neck: No evidence of palpable abnormality Thyroid without evidence of thyromegaly or mass. No cervical lymphadenopathy present. Cardiovascular: Rate and Rhythm: Normal rate and regular rhythm. . Skin: General: Skin is warm and dry. Neurological: General: No focal deficit present. Mental Status: alert and oriented to person, place, and time. FIBEROPTIC NASOPHARYNGOLARYNGOSCOPY A diagnostic flexible fiberoptic laryngoscopy was performed. Examination of the tongue base and surrounding structures appears to be normal. There is some brawny edema of the epiglottis but no evidence of tumor. There is some mild pooling secretions but no ben aspiration noted. Postradiation edema is present but nonobstructive. I do not see any evidence of tumor. Assessment/Plan Valente was seen today for cancer. Diagnoses and all orders for this visit: Malignant neoplasm of hypopharynx (CMS/HCC) (Primary) Comments: There is no evidence of disease on today's exam, he is encouraged to chew and swallow, I will see him back in 6 weeks. documented in this encounterOzarks Medical [id number] History of Present illness Narrative* Jaswant Zaidi DO - 03/30/2024 10:15 AM EDT Subjective Patient ID: HPI Patient presents today [...] ulceration or mass. Normal bilateral true vocal foldmotion is present. Bilateral piriform sinuses and base [...] radiation Comments: See above documented in this encounterOzarks Medical [id number] Progress note Author Deirdre Law [facility] March 29, 2024 2:09pm Note Date/Time March 29, 2024 1: 23pm [facility] [address] [place], [place] [id number] Palliative Medicine Encounter Patient: Valente Lucio MR#: [id number] : 1950 Acct:[id number] Age/Sex: 73 / M Copies to: Perlita Liu APRN, JANELLE Law APRN~ HPI Date of Visit Date [...] #500 mL Is patient having pain?: Yes [facility] Medical History Oropharyngeal mass High cholesterol BPH [...] not used for weeks ; OR aware Medon Symptom Assessment Scale Pain: throat pain improved [...] recorder, note dictated by Deirdre Law APRN, FAMILY AND CONSUMER SCIENCE PROFESSOR-C Dictated By: Deirdre Law APRN DD/ 1323 Signed By: <Electronically signed by MARY LOU Law> 03/29/24 1406 [facility] Work Phone: 1(917) 435-870309-03-2024 History of Present illness Narrative* Jaswant Zaidi, DO - 02/24/2024 10:45 AM EDT Subjective Patient ID: HPI Patient presents today for follow-up. He is nearing the end of his chemoradiation for an advanced laryngal pharyngeal squamous cell carcinoma. He had to have a gastrostomy tube inserted and he had totake a break from his treatment. Review of Systems ROS The specialty specific [...] normal Nares patent. Septal deviation to the left No evidence of polyp, mass or pus bilaterally. Oral Cavity: No evidence of trismus Lips appear normal Dental the edentulous Tongue of normal size and configuration, floor of mouth mucosa clear. Buccal mucosa shows no evidence of ulceration, mass or other abnormality Hard palate soft palate mucosa intact with no evidence of mass, ulceration or other abnormality. Moderate radiation mucositis is present Uvula of normal size and configuration Oropharynx: Tonsils absent Posterior pharyngeal wall mucositis present Neck: No evidence of palpable abnormality Thyroid without evidence of thyromegaly or mass. No cervical lymphadenopathy present. Cardiovascular: Rate and Rhythm: Normal rate and regular rhythm. . Skin: General: Some radiation dermatitis is present Neurological: General: No focal deficit present. Mental Status: alert and oriented to person, place, and time. FIBEROPTIC NASOPHARYNGOLARYNGOSCOPY A diagnostic flexible fiberoptic laryngoscopy was performed. The flexible fiberoptic laryngoscope was placed into the nose and advanced to the level of the tip of the epiglottis. Edema and burn is noted of the glottic and paraglottic structures but no obstructing lesions. There is moderate stasis of secretions with no obvious aspiration. No obvious tumor is noted. Assessment/Plan Valnete was seen today for cancer. Diagnoses and all orders for this visit: Malignant neoplasm of larynx (CMS/HCC) (Primary) Comments: Patient encouraged to finish treatment and I will see him back in a month documented in this [facility]08-29-2024 History of Present illness Narrative* Shanelle Mallory DO - 02/19/2024 9:30 AM EDT Images from the original note were not included. Valente Lucio is a 73 y.o. male presents for 1st pow G-tube placement HPI: HPI Valente is in for his first post-op check following PEG tube placement. He is doing well and tolerating the tube feeds OBJECTIVE: Physical Exam PEG site is clean ASSESSMENT AND PLAN: Assessment/Plan Problem List Items Addressed This Visit Throat cancer (CMS/HCC) Oral phase dysphagia - Primary Doing well with PEG tube. I'll see him PRN documented in this encounterOzarks Medical [id number] Progress note Author Deirdre Law [facility] February 09, 2024 2:03pm Note Date/Time February 09, 2024 1: 43pm [facility] [address] [place] [address] Palliative Medicine Encounter Patient: Valente Lucio MR#: [id number] : 1950 Acct:[id number] Age/Sex: 73 / M Copies to: Perlita Liu APRN, JANELLE Law APRN~ HPI Date of Visit Date [...] #500 mL Is patient having pain?: Yes [facility] Medical History Oropharyngeal mass High cholesterol BPH [...] not used for weeks ; OR aware Medon Symptom Assessment Scale Pain: neck and throat [...] recorder, note dictated by Deirdre Law APRN, FAMILY AND CONSUMER SCIENCE PROFESSOR-C Dictated By: Deirdre Law APRN DD/ 1335 Signed By: <Electronically signed by MARY LOU Law> 02/09/24 1403 [facility] Work Phone: 1(121) 207-614608-05-2024 Progress note Author Deirdre Law [facility] January 26, 2024 2:14pm Note Date/Time January 26, 2024 1:3 6pm [facility] [address] [place] [address] Palliative Medicine Encounter Patient: Valente Lucio MR#: [id number] : 1950 Acct:[id number] Age/Sex: 73 / M Copies to: Perlita Liu APRN, DOCTOR OF MEDICINE Deirdre Law APRN~ HPI Date of Visit [...] #5 ea Is patient having pain?: Yes [facility] Medical History Squamous cell carcinoma of hypopharynx Restless leg Dysphagia Hypertension Stroke Oropharyngeal dysphagia Surgical History History of surgery on lower extremity left History of carotid endarterectomy Family History Sister Breast cancer Social History Smoking Status: Former smoker Tobacco Type: cigarettes Substance Use Type: Alcohol and Marijuana Substance Abuse Comment: 9 Beers daily Medon Symptom Assessment Scale Pain: severe, constant pain [...] of liquid supplements and broth, following with coach operator weekly also; encouraged to get in at least 4 supplement drinks/day Attestation: The above note written by Hilda Dc MA acting as human recorder, note dictated by Deirdre Law APRN, FAMILY AND CONSUMER SCIENCE PROFESSOR-C Dictated By: Deirdre Law APRN DD/ 1336 Signed By: <Electronically signed by MARY LOU Law> 01/26/24 1414 [facility] Work Phone: 1(319) 168-281508-02-2024 Progress note Author Deirdre Law [facility] January 23, 2024 1:55pm Note Date/Time January 23, 2024 1:0 8pm [facility] [address] [place] [address] Palliative Medicine Encounter Patient: Valente Lucio MR#: [id number] : 1950 Acct:[id number] Age/Sex: 73 / M Copies to: Perlita Liu APRN, DOCTOR OF MEDICINE Deirdre Law APRN~ HPI Date of Visit [...] #5 ea Is patient having pain?: Yes [facility] Medical History Squamous cell carcinoma of hypopharynx Restless leg Dysphagia Hypertension Stroke Oropharyngeal dysphagia Surgical History History of surgery on lower extremity left History of carotid endarterectomy Family History Sister Breast cancer Social History Smoking Status: Former smoker Tobacco Type: cigarettes Substance Use Type: Alcohol and Marijuana Substance Abuse Comment: 9 Beers daily Medon Symptom Assessment Scale Pain: severe throat pain/ [...] respiratory effort, lung sounds assessed by Zak oCleman RN, clear in left lobes, RLL with [...] finished) Discussed with Zak Coleman RN and Jennifer Antunez SUPERVISOR [employer]MA - Oncology to order chest x- rayand modified barium swallow, Valente has med onc f/u on Friday with Dr. Naranjo Attestation: The above note written by Hilda Dc MA acting as human recorder, note dictated by Deirdre Law APRN, FAMILY AND CONSUMER SCIENCE PROFESSOR-C Dictated By: Deirdre Law APRN DD/ 1305 Signed By: <Electronically signed by MARY LOU Law> 01/23/24 1355 [facility] Work Phone: 1(219) 282-485007-29-2024 Progress note Author Deirdre Law [facility] January 19, 2024 2:23pm Note Date/Time January 19, 2024 2:03 pm [facility] [address] [place] [address] Palliative Medicine Encounter Patient: Valente Lucio MR#: [id number] : 1950 Acct:[id number] Age/Sex: 73 / M Copies to: Perlita Liu APRN, DOCTOR OF MEDICINE Deirdre Law APRN~ HPI Date of Visit [...] Marijuana Substance Abuse Comment: 9 Beers daily Medon Symptom Assessment Scale Pain: sore throat/ moderate [...] recorder, note dictated by Deirdre Law APRN, FAMILY AND CONSUMER SCIENCE PROFESSOR-C Dictated By: Deirdre Law APRN DD/ 0755 Signed By: <Electronically signed by MARY LOU Law> 01/19/24 1423 [facility] Work Phone: 1([phone]) 467-543206-07-2024 Procedure noteMetro[facility] CenterEvaluation note* Diagnosis Onset Date Resolution Status Iron deficiency anemia acute Oropharyngeal dysphagia acut e Stroke acute Depression acute Hyperlipidemia acute Hypertension acute Iron deficiency anemia acute Oropharyngeal dysphagia acut e Restless leg acute Stroke acute Urgency of micturition acute Dysphagia acute [facility] Work Phone: Evaluation note* Diagnosis Onset Date Resolution Status Dysphagia acute Frequent falls acute Stroke acute [facility] Work Phone: evaluation note* Diagnosis Onset Date Resolution Status Dysphagia acute Frequent falls acute Stroke acute Squamous cell carcinoma of hypopharynx acute Cancer associated pain acute Encounter for palliative care acute Squamous cell carcinoma of hypopharynx acute Bronchitis acute [facility] Work Phone: Evaluation note* Diagnosis Onset Date Resolution Status Dysphagia acute Frequent falls acute Stroke acute Squamous cell carcinoma of hypopharynx acute Cancer associated pain acute Encounter for palliative care acute Increased oropharyngeal secretions acute Squamous cell carcinoma of hypopharynx acute Bronchitis acute Squamous cell carcinoma of hypopharynx acute Cancer associated pain acute Squamous cell carcinoma of hypopharynx acute [facility] Work Phone: Evaluation note* Diagnosis Onset Date [...] acute Squamous cell carcinoma of hypopharynx acute [facility] Work Phone: Evaluation note* Diagnosis Onset Date [...] acute Squamous cell carcinoma of hypopharynx acute [facility] Work Phone: evaluation note* Diagnosis Onset Date [...] acute Squamous cell carcinoma of hypopharynx acute [facility] Work Phone: evaluation note* Diagnosis Onset Date [...] acute Squamous cell carcinoma of hypopharynx acute [facility] Work Phone: evaluation note* Diagnosis Onset Date [...] acute Squamous cell carcinoma of hypopharynx acute [facility] Work Phone: evaluation note* Diagnosis Onset Date [...] acute Squamous cell carcinoma of hypopharynx acute [facility] Work Phone: Evaluation note* Diagnosis Onset Date [...] acute Squamous cell carcinoma of hypopharynx acute [facility] Work Phone: Evaluation note* Diagnosis [...] acute Squamous cell carcinoma of hypopharynx acute [facility] Work Phone: Evaluation note* Diagnosis Malignant neoplasm of larynx (CMS/HCC)- Primary Malignant neoplasm of larynx, unspecified site History of head and neck radiation documented in this encounter [facility]* Diagnosis Iron deficiency anemia, unspecified iron deficiency anemia type- Primary Abnormal CT of the chest Nonspecific (abnormal) findings on radiological and other examination of other intrathoracic organs RLS (restless legs syndrome) Restless legs syndrome (RLS) Oropharyngeal dysphagia Dysphagia, oropharyngeal phase Chronic obstructive pulmonary disease, unspecified COPD type (CMS/HCC) Malignant neoplasm of hypopharynx (CMS/HCC)- Primary Malignant neoplasm of hypopharynx, unspecified site documented in this encounter [facility]Evaluation [facility]* Diagnosis Iron deficiency anemia, unspecified iron deficiency anemia type- Primary Abnormal CT of the chest Nonspecific (abnormal) findings on radiological and other examination of other intrathoracic organs RLS (restless legs syndrome) Restless legs syndrome (RLS) Oropharyngeal dysphagia Dysphagia, oropharyngeal phase Chronic obstructive pulmonary disease, unspecified COPD type (CMS/HCC) Throat cancer (CMS/HCC)- Primary Malignant neoplasm of pharynx, unspecified Oral phase dysphagia Dysphagia, oral phase documented in this encounter [facility]* Diagnosis Oral phase dysphagia- Primary Dysphagia, oral phase Throat cancer (CMS/HCC) Malignant neoplasm of pharynx, unspecified documented in this encounter [facility]* Diagnosis Malignant neoplasm of larynx (CMS/HCC)- Primary Malignant neoplasm of larynx, unspecified site documented in this encounter [facility]* Diagnosis Iron deficiency anemia, unspecified iron deficiency anemia type- Primary Abnormal CT of the chest Nonspecific (abnormal) findings on radiological and other examination of other intrathoracic organs RLS (restless legs syndrome) Restless legs syndrome (RLS) Oropharyngeal dysphagia Dysphagia, oropharyngeal phase Chronic obstructive pulmonary disease, unspecified COPD type (CMS/HCC) Malignant neoplasm of hypopharynx (CMS/HCC)- Primary Malignant neoplasm of hypopharynx, unspecified site History of head and neck radiation documented in this encounter [facility]* Diagnosis Iron deficiency anemia, unspecified iron deficiency anemia type- Primary Abnormal CT of the chest Nonspecific (abnormal) findings on radiological and other examination of other intrathoracic organs RLS (restless legs syndrome) Restless legs syndrome (RLS) Oropharyngeal dysphagia Dysphagia, oropharyngeal phase Chronic obstructive pulmonary disease, unspecified COPD type (CMS/HCC) Malignant neoplasm of hypopharynx (CMS/HCC)- Primary Malignant neoplasm of hypopharynx, unspecified site History of head and neck radiation documented in this encounter [facility] HealthcareEvaluation note* Diagnosis Iron deficiency anemia, unspecified iron deficiency anemia type- Primary Abnormal CT of the chest Nonspecific (abnormal) findings on radiological and other examination of other intrathoracic organs RLS (restless legs syndrome) Restless legs syndrome (RLS) Oropharyngeal dysphagia Dysphagia, oropharyngeal phase Chronic obstructive pulmonary disease, unspecified COPD type (CMS/HCC) Malignant neoplasm of oropharynx- Primary Malignant neoplasm of oropharynx, unspecified site History of head and neck radiation Pharyngoesophageal dysphagia Dysphagia, pharyngoesophageal phase documented in this encounter [facility] HealthcareEvaluation note* Diagnosis Iron deficiency anemia, unspecified iron deficiency anemia type- Primary Abnormal CT of the chest Nonspecific (abnormal) findings on radiological and other examination of other intrathoracic organs RLS (restless legs syndrome) Restless legs syndrome (RLS) Oropharyngeal dysphagia Dysphagia, oropharyngeal phase Chronic obstructive pulmonary disease, unspecified COPD type (CMS/HCC) Malignant neoplasm of larynx- Primary Malignant neoplasm of larynx, unspecified site History of head and neck radiation documented in this encounter [facility] HealthcareEvaluation note* Diagnosis Iron deficiency anemia, unspecified iron deficiency anemia type- Primary Abnormal CT of the chest Nonspecific (abnormal) findings on radiological and other examination of other intrathoracic organs RLS (restless legs syndrome) Restless legs syndrome (RLS) Oropharyngeal dysphagia Dysphagia, oropharyngeal phase Chronic obstructive pulmonary disease, unspecified COPD type (CMS/HCC) 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)- Primary Asymptomatic bilateral carotid artery stenosis Myoclonus documented in this encounter [facility] HealthcareEvaluation note* Diagnosis Iron deficiency anemia, unspecified iron deficiency anemia type- Primary Abnormal CT of the chest Nonspecific (abnormal) findings on radiological and other examination of other intrathoracic organs RLS (restless legs syndrome) Restless legs syndrome (RLS) Oropharyngeal dysphagia Dysphagia, oropharyngeal phase Chronic obstructive pulmonary disease, unspecified COPD type (HCC) Malignant neoplasm of hypopharynx (HCC)- Primary Malignant neoplasm of hypopharynx, unspecified site History of head and neck radiation documented in this encounter [facility] Author Vinicio Tamez [facility] November 28, 2023 12:15pm Note Date/Time November 28, 2023 12:15 pm [facility] [address] [place] [address] Gastroenterology H&P Signed Patient: Valente Lucio MR#: [id number] : 1950 Acct:[id number] Age/Sex: 73 / M Adm Date: 4 Loc: Room: Type: [facility] Attending Dr: Vinicio Tamez MD Copies [...] signed by Vinicio Tamez MD> 11/28/23 1215 [facility] Work Phone: Hospital Discharge instructionsAmbulatory Orders* Referral to Gastroenterology Time Frame: 11/11/23, Location: None [facility] Work Phone: Hospital Discharge instructions Additional Instructions [...] directed for pain unless a prescription was provided.][facility] Work Phone: Hospital Discharge instructionsAmbulatory Orders* Referral to Neurology Location: None [facility] Work Phone: Progress note Author Sweetie Mirza [facility] Note Date/Time October 11, 2024 11: [facility] [place] [address] Cancer Center Note Signed Patient: Valente Lucio MR#: [id number] : 1950 Acct:[id number] Age/Sex: 74 / M Type: DEP AMB Date of Service: 10/11/24 Copies to: DO Perlita Garcia APRN, JANELLE~ Assessment & Plan (1) Squamous cell carcinoma of hypopharynx: Plan: Sees ENT q6 weeks, return to clinic January 2025 for physical exam. 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 p16 negative February 27, 2024 patient completed definitive concurrent chemoradiation to a dose of 70.67 Benjamin in 34 fractions with delivery of lower doses to the intermediate risk sites of disease and elective javier region. He received concurrent CarboTaxol due to hearing issues at baseline. He required placement of the G-tube and did require 1 week break due to functional decline and moist desquamation with bilateral neck. Consequently additional fraction was added for compensation of the last biologic dose. Jun 2024 Posttreatment PET was concerning for residual uptake in the right lateral tongue. Exams have been negative and subsequent MRI of the face and orbits was also negative. Persistent dysphagia and G tube dependence since completion of CCRT. In August 2024 - taken to OR for EGD and dilation of esophagus. Mucosal biopsies negative. Clinically improved today after esophageal dilatation. Weight is up and I am pleased with his oral intake. Discussed option of guaifenesin as well as scopolamine patch for thick sputum however patient declines. Exam is ANA PAULA. He sees ENT every 6 weeks so we will see him back in 3 months. At that point he will be close to a year out from treatment. Low threshold for imaging due to p16 negativity and extent of disease. History of Present Illness HPI 74 year-old male referred to GI for iron deficiency anemia. Offered EGD and colonoscopy however declined colonoscopy. Oncologic history: November 28, 2023 EGD was completed upon insertion of the scope into the posterior oropharynx there was a masslike appearance to the mucosa which was extremely vascular and immediately started bleeding upon contact. Endoscope was advanced into the esophagus. Patient was further referred to ENT for evaluation and biopsy of the mass. December 02, 2023 patient evaluated in consultation by ENT. Fiberoptic nasopharyngolaryngoscopy showed the base of tongue and vallecula as well as bothsurfaces of the epiglottis to be normal. Scope was then advanced towards the level of the pharyngeal inlet. Exophytic neoplastic process emanating from the right lateral pharyngeal wall above the arytenoid. Is difficult to tell how much of the pharyngeal wall and/or piriform sinus was involved because the piriform sinuses collapsed. Normal bilateral vocal cord movement. December 03, 2023 CT of the neck with contrast showed asymmetric mucosal thickening on either side of midline within the oropharynx left greater than right. Soft tissue prominence accentuated by cervical thoracic scoliosis and anterior osteophyte formation C5-C7. No significant cervical lymphadenopathy. December 05, 2023 hypopharyngeal wall biopsy confirmed moderate lead to poorly differentiated squamous cell carcinoma p16 negative. Right AE fold biopsy also positive for squamous cell as well as the right lateral piriform sinus. December 08, 2023 PET/CT showed masslike thickening involving the posterior pharynx FDG avid SUV max 9. Abnormal activity seen in the region of the left parapharyngeal space corresponding to soft tissue within the region on concurrent CT. FDG avid bilateral level 2 lymph nodes. February 27, 2024 patient completed definitive concurrent chemoradiation to a dose of 70.67 Benjamin in 34 fractions with delivery of lower doses to the intermediate risk sites of disease and elective javier region. He received concurrent CarboTaxol due to hearing issues at baseline. Patient had a challenging radiation course and after approximately 20 fractions he began to experience severe dysphagia with an inability to swallow. His weight decreased by 10 kg and he had an abnormal barium swallow requiring placement of a G-tube on February 03, 2024. He did required a 1 week treatment break due to functional decline and severe skin reaction. He resumed radiation on February 10 and a single fraction was added to compensate for the last dose biologically. 1 month follow-up. He saw ENT February 23 towards the end of his chemoradiation. laryngoscopy was done which showed edema and radiation change in the glottic paraglottic structures with no obstructing lesions. No obvious tumor was noted. June 25, 2024 posttreatment PET confirms interval resolution of the abnormal hypermetabolism in the posterior pharyngeal region with resolution of the left pharyngeal lymph node and bilateral level 2 lymph nodes consistent with an adequate response to therapy. There is increased hypermetabolism identified in the right portion of the tongue at the base. malignant focus should be excluded. Exams have been negative (last scope July 02, 2024) and subsequent MRI of the face and orbits was also negative for any residual disease. Persistent dysphagia and G tube dependence since completion of CCRT. In August 2024 - taken to OR for EGD and dilation of esophagus. Mucosal biopsies negative. Patient significantly improved today after recent dilatation. Weight is up. BMI 21.7 and he is tolerating p.o. intake without pain. Does complain of inability to clear thick sputum occasionally as well as mild xerostomia. Patient previously had a CVA and states balance slightly worse. Intake Vitals/Pain Assessment 10/11/24 11:00 10/11/24 11:28 Height 5 ft 9 in Weight 65.771 kg 65.7 kg BMI 21.4 Body Fat % 36.90 Intake Visit Reasons: Follow Up, H+N Allergies baclofen Allergy (Verified 09/08/24 08:02) muscle stiffness cyclobenzaprine (From Flexeril) Allergy (Verified 09/08/24 08:02) muscle stiffness gabapentin Allergy (Verified 09/08/24 08:02) muscle stiffness onabotulinumtoxinA (From Botox) Allergy (Verified 09/08/24 08:02) muscle stiffness tizanidine Allergy (Verified 09/08/24 08:02) muscle stiffness [facility] Medical History Medical History (Updated 09/08/24 @ 08:07 by Linda Pizarro RN) History of sleep apnea I used to use a cpap but I dont anymore Tinnitus History of gastrostomy tube placement Oropharyngeal mass High cholesterol Squamous cell carcinoma of hypopharynx chemo and radiation Hypertension Dysphagia Restless leg Stroke affected left side Oropharyngeal dysphagia Surgical History Surgical History History of carpal tunnel surgery of right wrist History of surgery on lower extremity left thigh hematoma History of carotid endarterectomy right Family History Family History Sister Breast cancer Social History Social History Smoking status: Former smoker What tobacco products do you use: cigarettes Smoking quit date/years: <= 15 years ago Physical Exam EXAM Physical Exam: KPS 80 utilizes cane for ambulation General: alert, no acute distress HEENT: normocephalic, EOMI, no trismus noted. Oral cavity- patient is edentulous. Dry mucosa however improved from prior exam. Buccal and gingival mucosa without lesion. Oral tongue is soft, mobile. No palpable abnormality. Bilateral tonsillar pillars within normal limits, as is the posterior pharyngealwall. Neck: ROM intact. No significant fibrosis. No residual radiation skin changes noted. CHEST: normal work of breathing on room air. Abdomen: non acute MSK: Right clavicle with obvious displacement-chronic Results - [facility] ([facility]c) LAB RESULTS Glucose 88 mg/dL (70-100) 09/06/24 07:25 09/06/24 BUN 9 mg/dL (7-25) 09/06/24 07:25 09/06/24 Creatinine 0.48 mg/dL (0.70-1.30) L 09/06/24 07:25 Est GFR (CKD-EPI) > 60.0 mL/Min 09/06/24 07:25 09/06/24 Sodium 136 mmol/L (136-145) 09/06/24 07:09/06/24 Potassium 4.1 mmol/L (3.5-5.1) 09/06/24 07:09/06/24 Chloride 102 mmol/L (98-107) 09/06/24 07:09/06/24 Carbon Dioxide 29.9 mmol/L (21.0-31.0) 09/06/24 07: 5 Anion Gap 8.2 mEq/L (6.0-15.0) 09/06/24 07:09/06/24 Calcium 9.0 mg/dL (8.6-10.3) 09/06/24 07:09/06/24 Social Determinants of Health Screening SDOH last assessed in clinic: 10/11/24 Will the patient participate in the screening?: Yes Do you worry about having a steady place to live?: No In the past 12 months, have you had to go without electric, gas, oil, or water in your home?: No Have you or anyone in your house had to go without enough food to eat?: No Has lack of reliable transportation kept you from medical appointments or from doing things needed for daily living?: No Has anyone in your support network made you feel unsafe for any reason?: No Does the patient want assistance with any of the above?: No Dictated By: Sweetie Mirza MD DD/ [id number] Signed By: <Electronically signed by Sweetie Mirza MD> 10/11/24 [id number] [facility] Work Phone: Reason for visit Narrative* Consultation (Routine) - Closed Specialty Diagnoses / Procedures Referred By Contac t Referred To Contact Neurology Diagnoses Cerebral infarction, unspecified Procedures [place] [employer] [address] [place] [address] Phone: tel: fax: Rupert Rolle MD [id number] [facility] [address] [place] [id number] Phone: tel: fax: Referral ID Status Reason Start Date Expiration Date Visits Re quested Visits Authorized [id number] Closed 11/08/2024 05/07/2025 1 1 [facility] Chief Complaint and Reason for Visit Chief [...] of hypopharynx Squamous cell carcinoma of hypopharynx Chief Complaint Admit Date Virtual Follow Up, H+N Review PET Karlie y 2024 3:52pm Follow Up, Review MRI results July 062024 11:10am Hypopharynx Cancer July 06, 2024 1 1:11am Dysphagia July 15, 2024 1 2:59pm cough July 30, 2024 9 :54am R13.10 C13.9 Z92.3 August 16, 2024 8:17am Reason for Visit Admit Date Squamous cell carcinoma of hypopharynx J anuary 2024 3:52pm Squamous cell carcinoma of hypopharynx J anuary 2024 11:10am Dysphagia July 15, 2024 1 2:59pm Oropharyngeal mass July 15, 2024 1 2:59pm S/P percutaneous endoscopic gastrostomy (PEG) tube placement July 15, 2024 12:59pm Squamous cell carcinoma of hypopharynx J anuary 2024 12:59pm Maxillary sinusitis July 30, 2024 9 :54am Chief Complaint Admit Date Virtual Follow Up, H+N Review PET Januar y 2024 3:52pm Follow Up, Review MRI results July 062024 11:10am Hypopharynx Cancer July 06, 2024 1 1:11am Dysphagia July 15, 2024 1 2:59pm cough July 30, 2024 9 :54am R13.10 C13.9 Z92.3 August 16, 2024 8:17am Dysphagia September 06, 2024 7:0 0am Chief Complaint Admit Date Virtual Follow Up, H+N Review PET Januar y 2024 3:52pm Follow Up, Review MRI results July 062024 11:10am Hypopharynx Cancer July 06, 2024 1 1:11am Dysphagia July 15, 2024 1 2:59pm cough July 30, 2024 9 :54am R13.10 C13.9 Z92.3 August 16, 2024 8:17am Dysphagia September 06, 2024 7:0 0am Dysphagia September 08, 2024 7:1 9am Chief Complaint Admit Date cough July 30, 2024 9 :54am R13.10 C13.9 Z92.3 August 16, 2024 8:17am Dysphagia September 06, 2024 7:0 0am Dysphagia September 08, 2024 7:1 9am Follow Up, H+N October 11, 2024 10: 47am Reason for Visit Admit Date Maxillary sinusitis July 30, 2024 9 :54am Squamous cell carcinoma of hypopharynx A 2024 10:47am Chief Complaint Admit Date R13.10 C13.9 Z92.3 August 16, 2024 8:17am Dysphagia September 06, 2024 7:0 0am Dysphagia September 08, 2024 7:1 9am Follow Up, H+N October 11, 2024 10: 47am Neurology Referral November 02, 2024 1:28p m Reason for Visit Admit Date Squamous cell carcinoma of hypopharynx A 2024 10:47am Falls frequently November 02, 2024 1:28p m Oropharyngeal dysphagia November 02, 2024 1 :28pm Stroke November 02, 2024 1:28p m Advance Directives No Advanced Directives Records Found Advance Directive Response Recorded Date/ Time Advance Directives No July 12, 2023 12:27pm Advance Directive Response Recorded Date/ Time Advance Directives No July 12, 2023 11:27am Summary Purpose Family History No Family History Records Found Additional Source Comments Care Teams (unrecognized sec tion and content) Benzene Worker Relationship Specialty Start Date End Date Shaikh Ruiz MD PCP - General Internal Medicine 01/20/23 Team Status: Active Member Role Status Dates Perlita Liu APRN FAMILY AND CONSUMER SCIENCE PROFESSOR-C Primary Care Provider Active Team Status: Inactive Member Role Status Dates Vinicio Tamez MD Attending Provider Active S tart: August 22, 2023 End: August 22, 2023 Perlita Liu APRN FAMILY AND CONSUMER SCIENCE PROFESSOR-C Primary Care Provider Active Start: August 22, 2023 End: August 22, 2023 Team Status: Inactive Member Role Status Dates Perlita Liu APRN FAMILY AND CONSUMER SCIENCE PROFESSOR-C Primary Care Provider, Attending Provider Active Start: August 27, 2023 End: August 27, 2023 Team Status: Inactive Member Role Status Dates Perlita Liu APRN FAMILY AND CONSUMER SCIENCE PROFESSOR-C Primary Care Provider, Attending Provider Active Start: November 11, 2023 End: November 11, 2023 Team Status: Inactive Member Role Status Dates Perlita Liu APRN FAMILY AND CONSUMER SCIENCE PROFESSOR-C Primary Care Provider Active Start: November 28, 2023 End: November 28, 2023 Vinicio Tamez MD Attending Provider Active S tart: November 28, 2023 End: November 28, 2023 Team Status: Active Member Role Status Dates Perlita Liu APRN FAMILY AND CONSUMER SCIENCE PROFESSOR-C Primary Care Provider Active Start: November 27 Vinicio Tamez MD Attending Provider, Other Provider Active Start: November 28, 2023 Team Status: Inactive Member Role Status Dates Perlita Liu APRN FAMILY AND CONSUMER SCIENCE PROFESSOR-C Primary Care Provider Active Start: December 02, [...] End: December 08, 2023 Perlita Liu APRN FAMILY AND CONSUMER SCIENCE PROFESSOR-C Primary Care Provider Active Start: December 08, 2023 End: December 08, 2023 Team Status: Inactive Member Role Status Dates Perlita Liu APRN FAMILY AND CONSUMER SCIENCE PROFESSOR-C Primary Care Provider Active Start: December 17, 2023 End: December 17, 2023 Sweetie Mirza MD Attending Provider Active Start: December 17, 2023 End: December 17, 2023 Jaswant Zaidi DO Referring Provider Active S tart: December 17, 2023 End: December 17, 2023 Team Status: Active Member Role Status Dates Perlita Liu APRN FAMILY AND CONSUMER SCIENCE PROFESSOR-C Primary Care Provider Active Start: December 18, 2023 Sweetie Mirza MD Attending Provid er, Other Provider Active Start: December 18, 2023 Jaswant Zaidi DO Referring Provider Active S tart: December 18, 2023 Team Status: Inactive Member Role Status Dates Perlita Liu APRN FAMILY AND CONSUMER SCIENCE PROFESSOR-C Primary Care Provider Active Start: December 22, 2023 End: December 22, 2023 Nabil Fox II, DO Attending Provider Active Start: December 22, 2023 End: December 22, 2023 Sweetie Mirza MD Referring Provider Active Start: December 22, 2023 End: December 22, 2023 Team Status: Inactive Member Role Status Dates Perlita Liu APRN FAMILY AND CONSUMER SCIENCE PROFESSOR-C Primary Care Provider Active Start: December 23, 2023 End: December 23, 2023 Nabil Fox II, DO Attending Provider Active Start: December 23, 2023 End: December 23, 2023 Team Status: Active Member Role Status Dates Perlita Liu APRN FAMILY AND CONSUMER SCIENCE PROFESSOR-C Primary Care Provider Active Start: December 29 Sweetie Mirza MD Attending Provid er, Other Provider Active Start: December 30, 2023 Jaswant Zaidi DO Referring Provider Active S tart: December 30, 2023 Team Status: Active Member Role Status Dates Perlita Liu APRN FAMILY AND CONSUMER SCIENCE PROFESSOR-C Primary Care Provider, Attending Provider Active Start: December 31, 2023 Team Status: Active Member Role Status Dates Perlita Liu APRN FAMILY AND CONSUMER SCIENCE PROFESSOR-C Primary Care Provider Active Start: January 01, 2024 Sweetie Mirza MD Attending Provider Active Start: January 01, 2024 Team Status: Active Member Role Status Dates Perlita Liu APRN FAMILY AND CONSUMER SCIENCE PROFESSOR-C Primary Care Provider Active Start: January 06, 2024 Jaswant Zaidi DO Referring Provider Active S tart: January 06, 2024 Nabil Fox II, DO Active S tart: January 06, 2024 Sweetie Mirza MD Attending Provid er, Other Provider Active Start: January 06, 2024 Team Status: Inactive Member Role Status Dates Perlita Liu APRN FAMILY AND CONSUMER SCIENCE PROFESSOR-C Primary Care Provider Active Start: January 07, 2024 End: January 07, 2024 Deirdre Law APRN Attending Provider Active Start: January 07, 2024 End: January 07, 2024 Team Status: Inactive Member Role Status Dates Perlita Liu APRN FAMILY AND CONSUMER SCIENCE PROFESSOR-C Primary Care Provider, Attending Provider Active Start: January 07, 2024 End: January 07, 2024 Team Status: Active Member Role Status Dates Perlita Liu APRN FAMILY AND CONSUMER SCIENCE PROFESSOR-C Primary Care Provider Active Start: January 07, 2024 Jaswant Zaidi DO Referring Provider Active S tart: January 07, 2024 Nabil Fox II, DO Active S tart: January 07, 2024 Sweetie Mirza MD Attending Provider Active Start: January 07, 2024 Team Status: Inactive Member Role Status Dates Perlita Liu APRN FAMILY AND CONSUMER SCIENCE PROFESSOR-C Primary Care Provider Active Start: January 07, 2024 End: January 07, 2024 Gena Lyn APRN Attending Provider Acti ve Start: January 07, 2024 End: January 07, 2024 Team Status: Active Member Role Status Dates Perlita Liu APRN FAMILY AND CONSUMER SCIENCE PROFESSOR-C Primary Care Provider Active Start: January 07, 2024 Deirdre Law APRN Attending Prov ider, Other Provider Active Start: January 07, 2024 Team Status: Inactive Member Role Status Dates Perlita Liu APRN FAMILY AND CONSUMER SCIENCE PROFESSOR-C Primary Care Provider Active Start: January 12, 2024 End: January 12, 2024 Deirdre Law APRN Attending Provider Active Start: January 12, 2024 End: January 12, 2024 Team Status: Active Member Role Status Dates Perlita Liu APRN FAMILY AND CONSUMER SCIENCE PROFESSOR-C Primary Care Provider Active Start: January 12, 2024 Jaswant Zaidi , Referring Provider Active S tart: January 12, 2024 Nabil Fox II, Attending Provider Active Start: January 12, 2024 Team Status: Active Member Role Status Dates Perlita Liu APRN FAMILY AND CONSUMER SCIENCE PROFESSOR-C Primary Care Provider Active Start: January 12, 2024 Deirdre Law APRN Attending Prov ider, Other Provider Active Start: January 12, 2024 Team Status: Active Member Role Status Dates Perlita Liu APRN FAMILY AND CONSUMER SCIENCE PROFESSOR-C Primary Care Provider Active Start: January 13, 2024 Jaswant Zaidi , Referring Provider Active S tart: January 13, 2024 Nabil Fox II, DO Other Provider Active Start: January 13, 2024 Sweetie Mirza MD Attending Provider Active Start: January 13, 2024 Team Status: Active Member Role Status Dates Perlita Liu APRN FAMILY AND CONSUMER SCIENCE PROFESSOR-C Primary Care Provider Active Start: January 15, 2024 Sweetie Mirza MD Attending Provider Active Start: January 15, 2024 Team Status: Inactive Member Role Status Dates Perlita Liu APRN FAMILY AND CONSUMER SCIENCE PROFESSOR-C Primary Care Provider Active Start: January 19, 2024 End: January 19, 2024 Deirdre Law APRN Attending Provider Active Start: January 19, 2024 End: January 19, 2024 Team Status: Active Member Role Status Dates Perlita Liu APRN FAMILY AND CONSUMER SCIENCE PROFESSOR-C Primary Care Provider Active Start: January 19, 2024 Deirdre Law APRN Attending Prov ider, Other Provider Active Start: January 19, 2024 Team Status: Active Member Role Status Dates Perlita Liu APRN FAMILY AND CONSUMER SCIENCE PROFESSOR-C Primary Care Provider Active Start: January 19, 2024 Jaswant Zaidi , DO Referring Provider Active S tart: January 19, 2024 Nabil Fox II, DO Attending Provider Active Start: January 19, 2024 Team Status: Active Member Role Status Dates Perlita Liu APRN FAMILY AND CONSUMER SCIENCE PROFESSOR-C Primary Care Provider Active Start: January 21, 2024 Jaswant Zaidi , DO Referring Provider Active S tart: January 21, 2024 Nabil Fox II, DO Other Provider Active Start: January 21, 2024 Sweetie Mirza MD Attending Provider Active Start: January 21, 2024 Team Status: Inactive Member Role Status Dates Perlita Liu APRN FAMILY AND CONSUMER SCIENCE PROFESSOR-C Primary Care Provider Active Start: January 23, 2024 End: January 23, 2024 Deirdre Law APRN Attending Provider Active Start: January 23, 2024 End: January 23, 2024 Team Status: Active Member Role Status Dates Perlita Liu APRN FAMILY AND CONSUMER SCIENCE PROFESSOR-C Primary Care Provider Active Start: January 23, 2024 Deirdre Law APRN Attending Prov ider, Other Provider Active Start: January 23, 2024 Team Status: Active Member Role Status Dates Perlita Liu APRN FAMILY AND CONSUMER SCIENCE PROFESSOR-C Primary Care Provider Active Start: January 23, 2024 Jaswant Zaidi , Referring Provider Active S tart: January 23, 2024 Nabil Fox II, DO Attending Provider Active Start: January 23, 2024 Team Status: Inactive Member Role Status Dates Perlita Liu APRN FAMILY AND CONSUMER SCIENCE PROFESSOR-C Primary Care Provider Active Start: January 26, 2024 End: January 26, 2024 Deirdre Law APRN Attending Provider Active Start: January 26, 2024 End: January 26, 2024 Team Status: Active Member Role Status Dates Perlita Liu APRN FAMILY AND CONSUMER SCIENCE PROFESSOR-C Primary Care Provider Active Start: January 26, 2024 Jaswant Zaidi , Referring Provider Active S tart: January 26, 2024 Nabil Fox II, DO Attending Provider Active Start: January 26, 2024 Team Status: Active Member Role Status Dates Perlita Liu APRN FAMILY AND CONSUMER SCIENCE PROFESSOR-C Primary Care Provider Active Start: January 26, 2024 Deirdre Law APRN Attending Prov ider, Other Provider Active Start: January 26, 2024 Team Status: Inactive Member Role Status Dates Perlita Liu APRN FAMILY AND CONSUMER SCIENCE PROFESSOR-C Primary Care Provider Active Start: January 26, 2024 End: January 26, 2024 Nabil Fox II, DO Attending Provider Active Start: January 26, 2024 End: January 26, 2024 Team Status: Active Member Role Status Dates Perlita Liu APRN FAMILY AND CONSUMER SCIENCE PROFESSOR-C Primary Care Provider Active Start: January 20, 2024 Jaswant Zaidi , Referring Provider Active S tart: January 20, 2024 Nabil Fox II, DO Other Provider Active Start: January 20, 2024 Sweetie Mirza MD Attending Provider Active Start: January 20, 2024 Team Status: Active Member Role Status Dates Perlita Liu APRN FAMILY AND CONSUMER SCIENCE PROFESSOR-C Primary Care Provider Active Start: January 28, 2024 Jaswant Zaidi , Referring Provider Active S tart: January 28, 2024 Nabil Fox II, DO Other Provider Active Start: January 28, 2024 Sweetie Mirza MD Attending Provider Active Start: January 28, 2024 Team Status: Active Member Role Status Dates Perlita Liu APRN FAMILY AND CONSUMER SCIENCE PROFESSOR-C Primary Care Provider Active Start: January 29, 2024 Sweetie Mirza MD Attending Provider Active Start: January 29, 2024 Team Status: Inactive Member Role Status Dates Perlita Liu APRN FAMILY AND CONSUMER SCIENCE PROFESSOR-C Primary Care Provider Active Start: February 02, 2024 End: February 02, 2024 Deirdre Law APRN Attending Provider Active Start: February 02, 2024 End: February 02, 2024 Team Status: Active Member Role Status Dates Perlita Liu APRN FAMILY AND CONSUMER SCIENCE PROFESSOR-C Primary Care Provider Active Start: February 02, 2024 Jaswant Zaidi , Referring Provider Active S tart: February 02, 2024 Nabil Fox II, DO Attending Provider Active Start: February 02, 2024 Team Status: Active Member Role Status Dates Perlita Liu APRN FAMILY AND CONSUMER SCIENCE PROFESSOR-C Primary Care Provider Active Start: January Deirdre Law APRN Attending Prov ider, Other Provider Active Start: February 02, 2024 Team Status: Inactive Member Role Status Dates Perlita Liu APRN FAMILY AND CONSUMER SCIENCE PROFESSOR-C Primary Care Provider Active Start: February 03, 2024 End: February 03, 2024 Shanelle Mallory DO Attending Provider Active Start: February 03, 2024 End: February 03, 2024 Team Status: Active Member Role Status Dates Perlita Liu APRN FAMILY AND CONSUMER SCIENCE PROFESSOR-C Primary Care Provider Active Start: January 05, 2024 Jaswant Zaidi DO Referring Provider Active S tart: January 05, 2024 Nabil Fox II, DO Active S tart: January 05, 2024 Sweetie Mirza MD Attending [facility] er, Other Provider Active Start: January 05, 2024 Team Status: Active Member Role Status Dates Perlita Liu APRN FAMILY AND CONSUMER SCIENCE PROFESSOR-C Primary Care Provider Active Start: February 09, 2024 Jaswant Zaidi DO Referring Provider Active S tart: February 09, 2024 Nabil Fox II, DO Attending Provider Active Start: February 09, 2024 Team Status: Inactive Member Role Status Dates Perlita Liu APRN FAMILY AND CONSUMER SCIENCE PROFESSOR-C Primary Care Provider Active Start: February 09, 2024 End: February 09, 2024 Deirdre Law APRN Attending Provider Active Start: February 09, 2024 End: February 09, 2024 Team Status: Active Member Role Status Dates Perlita Liu APRN FAMILY AND CONSUMER SCIENCE PROFESSOR-C Primary Care Provider Active Start: January Deirdre Law APRN Attending Prov ider, Other Provider Active Start: February 09, 2024 Team Status: Inactive Member Role Status Dates Perlita Liu APRN FAMILY AND CONSUMER SCIENCE PROFESSOR-C Primary Care Provider Active Start: February 09, 2024 End: February 09, 2024 Nabil Fox II, Attending Provider Active Start: February 09, 2024 End: February 09, 2024 Team Status: Active Member Role Status Dates Perlita Liu APRN FAMILY AND CONSUMER SCIENCE PROFESSOR-C Primary Care Provider Active Start: January 12, 2024 Jaswant Zaiid , Referring Provider Active S tart: January 12, 2024 Nabil Fox II, DO Other Provider Active Start: January 12, 2024 Sweetie Mirza MD Attending Provider Active Start: January 12, 2024 Team Status: Active Member Role Status Dates Perlita Liu APRN FAMILY AND CONSUMER SCIENCE PROFESSOR-C Primary Care Provider Active Start: January 19, 2024 Jaswant Zaidi , DO Referring Provider Active S tart: January 19, 2024 Nabil Fox II, DO Other Provider Active Start: January 19, 2024 Sweetie Mirza MD Attending Provider Active Start: January 19, 2024 Team Status: Active Member Role Status Dates Perlita Liu APRN FAMILY AND CONSUMER SCIENCE PROFESSOR-C Primary Care Provider Active Start: January 26, 2024 Jaswant Zaidi , Referring Provider Active S tart: January 26, 2024 Nabil Fox II, DO Other Provider Active Start: January 26, 2024 Sweetie Mirza MD Attending Provider Active Start: January 26, 2024 Team Status: Active Member Role Status Dates Perlita Liu APRN FAMILY AND CONSUMER SCIENCE PROFESSOR-C Primary Care Provider Active Start: January Jaswant Zaidi , Referring Provider Active S tart: February 11, 2024 Nabil Fox II, DO Active S tart: February 11, 2024 Sweetie Mirza MD Attending Provid er, Other Provider Active Start: February 11, 2024 Team Status: Inactive Member Role Status Dates Perlita Liu APRN FAMILY AND CONSUMER SCIENCE PROFESSOR-C Primary Care Provider Active Start: February 18, 2024 End: February 18, 2024 Deirdre Law APRN Attending Provider Active Start: February 18, 2024 End: February 18, 2024 Team Status: Active Member Role Status Dates Perlita Liu APRN FAMILY AND CONSUMER SCIENCE PROFESSOR-C Primary Care Provider Active Start: February 18, 2024 Jaswant Zaidi , Referring Provider Active S tart: February 18, 2024 Nabil Fox II, DO Active S tart: February 18, 2024 Sweetie Mirza MD Attending Provider Active Start: February 18, 2024 Team Status: Active Member Role Status Dates Perlita Liu APRN FAMILY AND CONSUMER SCIENCE PROFESSOR-C Primary Care Provider Active Start: January Jaswant Zaidi DO Referring Provider Active S tart: February 18, 2024 Nabil Fox II, DO Active S tart: February 18, 2024 Sweetie Mirza MD Attending Provid er, Other Provider Active Start: February 18, 2024 Team Status: Inactive Member Role Status Dates Perlita Liu APRN FAMILY AND CONSUMER SCIENCE PROFESSOR-C Primary Care Provider Active Start: February 18, 2024 End: February 18, 2024 Gena Lyn APRN Attending Provider Acti ve Start: February 18, 2024 End: February 18, 2024 Team Status: Active Member Role Status Dates Perlita Liu APRN FAMILY AND CONSUMER SCIENCE PROFESSOR-C Primary Care Provider Active Start: January Deirdre Law APRN Attending Prov ider, Other Provider Active Start: February 18, 2024 Team Status: Inactive Member Role Status Dates Perlita Liu APRN FAMILY AND CONSUMER SCIENCE PROFESSOR-C Primary Care Provider Active Start: February 232023 End: February 24, 2024 Deirdre Law APRN Attending Provider Active Start: February 24, 2024 End: February 24, 2024 Team Status: Active Member Role Status Dates Perlita Liu APRN FAMILY AND CONSUMER SCIENCE PROFESSOR-C Primary Care Provider Active Start: February 232023 Jaswant Zaidi DO Referring Provider Active S tart: February 24, 2024 Nabil Fox II, DO Active S tart: February 24, 2024 Sweetie Mirza MD Attending Provider Active Start: February 24, 2024 Team Status: Active Member Role Status Dates Perlita Liu APRN FAMILY AND CONSUMER SCIENCE PROFESSOR-C Primary Care Provider Active Start: January Jaswant Zaidi DO Referring Provider Active S tart: February 16, 2024 Nabil Fox II, DO Active S tart: February 16, 2024 Sweetie Mirza MD Attending Provid er, Other Provider Active Start: February 16, 2024 Team Status: Active Member Role Status Dates Perlita Liu APRN FAMILY AND CONSUMER SCIENCE PROFESSOR-C Primary Care Provider Active Start: February 232023 Jaswant Zaidi DO Referring Provider Active S tart: February 24, 2024 Nabil Fox II, DO Active S tart: February 24, 2024 Sweetie Mirza MD Attending Provid er, Other Provider Active Start: February 24, 2024 Team Status: Active Member Role Status Dates Perlita Liu APRN FAMILY AND CONSUMER SCIENCE PROFESSOR-C Primary Care Provider Active Start: February 232023 Deirdre Law APRN Attending Prov ider, Other Provider Active Start: February 24, 2024 Team Status: Active Member Role Status Dates Perlita Liu APRN FAMILY AND CONSUMER SCIENCE PROFESSOR-C Primary Care Provider Active Start: February 252023 Sweetie Mirza MD Attending Provider Active Start: February 26, 2024 Team Status: Inactive Member Role Status Dates Perlita Liu APRN FAMILY AND CONSUMER SCIENCE PROFESSOR-C Primary Care Provider Active Start: February 262023 End: February 27, 2024 Nabil Fox II, DO Attending Provider Active Start: February 27, 2024 End: February 27, 2024 Team Status: Inactive Member Role Status Dates Perlita Liu APRN FAMILY AND CONSUMER SCIENCE PROFESSOR-C Primary Care Provider, Attending Provider Active Start: March 04, 2024 End: March 04, 2024 Team Status: Inactive Member Role Status Dates Perlita Liu APRN FAMILY AND CONSUMER SCIENCE PROFESSOR-C Primary Care Provider Active Start: March 29, 2024 End: March 29, 2024 Deirdre Law APRN Attending Provider Active Start: March 29, 2024 End: March 29, 2024 Team Status: Active Member Role Status Dates Perlita Liu APRN FAMILY AND CONSUMER SCIENCE PROFESSOR-C Primary Care Provider Active Start: March Deirdre Law APRN Attending Prov ider, Other Provider Active Start: March 29, 2024 Team Status: Active Member Role Status Dates Perlita Liu APRN FAMILY AND CONSUMER SCIENCE PROFESSOR-C Primary Care Provider Active Start: March 29, 2024 Jaswant Zaidi DO Referring Provider Active S tart: March 29, 2024 Nabil Fox II, DO Attending Provider Active Start: March 29, 2024 Sweetie Mirza MD Active Star t: March 29, 2024 Benzene Worker Relationship Specialty Start Date End Date Perlita Liu NP [address] [place] [address] PCP - General Family Medicine 12/02/23 Vinicio Tamez MD [address] [place] [phone] Referring Physician Gastroenterology 12/15/23 Jaswant Zaidi DO [address] [place] [address] Otolaryngology 12/15/23 Benzene Worker Relationship Specialty Start Date End Date Perlita Liu NP [address] [place] [address], [place] [address] PCP - General Family Medicine 12/02/23 Vinicio Tamez MD [address] [place] [phone] Referring Physician Gastroenterology 12/15/23 Jaswant Zaidi DO [address] [place] [address] Otolaryngology 12/15/23 Benzene Worker Relationship Specialty Start Date End Date Perlita Liu NP [address] [place] [address] PCP - General Family Medicine 12/02/23 Vinicio Tamez MD [address] [place] [address] [phone] Referring Physician Gastroenterology 12/15/23 Jaswant Zaidi DO [address] [place] [address] Otolaryngology 12/15/23 Benzene Worker Relationship Specialty Start Date End Date Perlita Liu NP [address] [place] [address], [place] [address] PCP - General Family Medicine 12/02/23 Vinicio Tamez MD [address] [place] [address] [phone] Referring Physician Gastroenterology 12/15/23 Jaswant Zaidi DO [address] [place] [address] Otolaryngology 12/15/23 Benzene Worker Relationship Specialty Start Date End Date Perlita Liu NP [address] [place] [address], [place] [address] PCP - General Family Medicine 12/02/23 Vinicio Tamez MD [address] [place] [address] [phone] Referring Physician Gastroenterology 12/15/23 Jaswant Zaidi DO [address] [place] [address] Otolaryngology 12/15/23 Benzene Worker Relationship Specialty Start Date End Date Perlita Liu NP [address] [place] [address], [place] [address] PCP - General Family Medicine 12/02/23 Vinicio Tamez MD [address] [place] [phone] Referring Physician Gastroenterology 12/15/23 Jaswant Zaidi DO [address] [place] [address] Otolaryngology 12/15/23 Benzene Worker Relationship Specialty Start Date End Date Perlita Liu NP [address] [place], [place] [address], [place] [address] PCP - General Family Medicine 12/02/23 Vinicio Tamez MD [address] [place] [address], [place] [phone] Referring Physician Gastroenterology 12/15/23 Jaswant Zaidi DO [address] [address] Otolaryngology 12/15/23 Benzene Worker Relationship Specialty Start Date End Date Perlita Liu NP [address] [place] [address] [place] [address] PCP - General Family Medicine 12/02/23 Vinicio Tamez MD [address] [phone] Referring Physician Gastroenterology 12/15/23 Jaswant Zaidi DO [address] [place] [address] Otolaryngology 12/15/23 Benzene Worker Relationship Specialty Start Date End Date Perlita Liu NP [address] [place] [address], [place] [address] PCP - General Family Medicine 12/02/23 Vinicio Tamez MD [address] [phone] Referring Physician Gastroenterology 12/15/23 Jaswant Zaidi DO [address] [place] [address] Otolaryngology 12/15/23 Benzene Worker Relationship Specialty Start Date End Date Perlita Liu NP [address] [place] [address], [place] [address] PCP - General Family Medicine 12/02/23 Vinicio Tamez MD [address] [phone] Referring Physician Gastroenterology 12/15/23 Jaswant Zaidi DO [address] [place] [address] Otolaryngology 12/15/23 Benzene Worker Relationship Specialty Start Date End Date Perlita Liu NP [address] [place] [address], [place] [address] PCP - General Family Medicine 12/02/23 Vinicio Tamez MD [address] [phone] Referring Physician Gastroenterology 12/15/23 Jaswant Zaidi DO [address] [place] [address] Otolaryngology 12/15/23 Benzene Worker Relationship Specialty Start Date End Date Perlita Liu NP [address] [place] [address] PCP - General Family Medicine 12/02/23 Vinicio Tamez MD [address] [place] [phone] Referring Physician Gastroenterology 12/15/23 Jaswant Zaidi DO [address] [place] [address] Otolaryngology 12/15/23 Team Status: Inactive Member Role Status Dates Perlita Liu APRN FAMILY AND CONSUMER SCIENCE PROFESSOR-C Primary Care Provider Active Start: June 28, 2024 End: June 28, 2024 Sweetie Mirza MD Attending Provider Active Start: June 28, 2024 End: June 28, 2024 Team Status: Inactive Member Role Status Dates MARY LOU Ojeda Primary Care Provider Active Start: June End: July 06, 2024 Sweetie Mirza MD Attending Provider Active Start: July 06, 2024 End: July 06, 2024 Team Status: Active Member Role Status Dates Perlita Liu APRN FAMILY AND CONSUMER SCIENCE PROFESSOR-C Primary Care Provider Active Start: June Jaswant Zaidi DO Referring Provider Active S tart: July 06, 2024 Nabil Fox II, Attending Provider Active Start: July 06, 2024 Sweetie Mirza MD Active Star t: July 06, 2024 Team Status: Inactive Member Role Status Dates Perlita Liu APRN FAMILY AND CONSUMER SCIENCE PROFESSOR-C Primary Care Provider Active Start: June End: July 15, 2024 Vinicio Tamez MD Attending Provider Active S tart: July 15, 2024 End: July 15, 2024 Team Status: Inactive Member Role Status Dates Perlita Liu APRN FAMILY AND CONSUMER SCIENCE PROFESSOR-C Primary Care Provider, Attending Provider Active Start: July 30, 2024 End: July 30, 2024 Team Status: Inactive Member Role Status Dates Perlita Liu APRN FAMILY AND CONSUMER SCIENCE PROFESSOR-C Primary Care Provider Active Start: August 162024 End: August 16, 2024 Jaswant Zaidi DO Attending Provider Active S tart: August 16, 2024 End: August 16, 2024 Team Status: Inactive Member Role Status Dates Perlita Liu APRN FAMILY AND CONSUMER SCIENCE PROFESSOR-C Primary Care Provider Active Start: September 06, 2024 End: September 06, 2024 Jaswant Zaidi DO Attending Provider Active S tart: September 06, 2024 End: September 06, 2024 Team Status: Inactive Member Role Status Dates Perlita Liu APRN FAMILY AND CONSUMER SCIENCE PROFESSOR-C Primary Care Provider Active Start: September 08, 2024 End: September 08, 2024 Jaswant Zaidi DO Attending Provider Active S tart: September 08, 2024 End: September 08, 2024 Benzene Worker Relationship Specialty Start Date End Date Perlita Liu NP [address] [facility] [place] [address] PCP - General Family Medicine 12/02/23 Vinicio Tamez MD [address] [place] [address] [phone] Referring Physician Gastroenterology 12/15/23 Jaswant Zaidi DO [address] [place] [address] Otolaryngology 12/15/23 Team Status: Inactive Member Role Status Dates Perlita Liu APRN FAMILY AND CONSUMER SCIENCE PROFESSOR-C Primary Care Provider Active Start: October 11, 2024 End: October 11, 2024 Sweetie Mirza MD Attending Provider Active Start: October 11, 2024 End: October 11, 2024 Nabil Fox II, DO Attending Provider Active Start: October 11, 2024 Sweetie Mirza MD Active Star t: October 11, 2024 Benzene Worker Relationship Specialty Start Date End Date Perlita iLu NP [address] [place] [address] [place] [address] PCP - General Family Medicine 12/02/23 Vinicio Tamez MD [address] [place] [address] [place] [address] Referring Physician Gastroenterology 12/15/23 Jaswant Zaidi DO [address] [place] [address] Otolaryngology 12/15/23 Benzene Worker Relationship Specialty Start Date End Date Perlita Liu NP [address] [place] [address] [place] [address] PCP - General Family Medicine 12/02/23 Vinicio Tamez MD [address] [place] [address] [place] [address] Referring Physician Gastroenterology 12/15/23 Jaswant Zaidi DO [address] [place] [address] Otolaryngology 12/15/23 Team Status: Inactive Member Role Status Dates Perlita Liu APRN FAMILY AND CONSUMER SCIENCE PROFESSOR-C Primary Care Provider, Attending Provider Active Start: November 02, 2024 End: November 02, 2024 Benzene Worker Relationship Specialty Start Date End Date Perlita Liu NP [address] [place] [address], [place] [address] PCP - General Family Medicine 12/02/23 Vinicio Tamez MD [address] [place] [address], [place] [address] Referring Physician Gastroenterology 12/15/23 Jaswant Zaidi DO [address] [place] [address] Otolaryngology 12/15/23 Benzene Worker Relationship Specialty Start Date End Date Perlita Liu NP [address] [place] [address], [place] [address] PCP - General Family Medicine 12/02/23 Vinicio Tamez MD [address] [place] [address], [place] [address] Referring Physician Gastroenterology 12/15/23 Jaswant Zaidi DO [address] [place] [address] Otolaryngology 12/15/23 Benzene Worker Relationship Specialty Start Date End Date Perlita Liu NP [address] [facility] [place] [address] PCP - General Family Medicine 12/02/23 Vinicio Tamez MD [address] [facility] [place] [address] Referring Physician Gastroenterology 12/15/23 Jaswant Zaidi DO [address] [place] [address] Otolaryngology 12/15/23 Goals (unrecognized section and content) Goals may be documented in a n alternate section Reason for Visit (unrecogniz ed section and content) Reason Comments Cancer Reason Comments Cancer 6 week recheck CA Reason Comments Peg tube removal Reason Comments 1st pow G-tube placement Reason Comments Cancer 1 month cailin Reason Comments Cancer 6 week cailin Reason Comments Dysphagia (unrecognized sect ion and content) No Status Records FoundNo Status Records Found INFORMATION SOURCE (unrecogn ized section and content) DATE CREATED AUTHOR 12/08/2024 [facility] DATE CREATED AUTHOR AUTHOR'S TYRONE CROWELL 12/15/2024 [facility] FOR RECORDS PERTAINING TO PATIENTS WHO ARE [...] BE BASED ON THE PRIMARY CLINICAL RECORDS. [employer] provides no warranty or guarantee of the accuracy or completeness of information in this document.
== END 2024-12-16 08:30 | disposition home or self-care (01) ==
LOC: US 08:31
PROVIDERS: PCP Nurse Practitioner Family; Visit Provider Nurse Practitioner Adult Health
DX: I63.511 Cerebral infarction due to unspecified occlusion or stenosis of right middle cerebral artery (principal); I65.23 Occlusion and stenosis of bilateral carotid arteries
CPT/HCPCS: 93880

== ENCOUNTER 2025-03-08 15:52 | Emergency (ER) | payer MEDICARE, SELFPAY ==
[2025-03-08 15:56] VITALS: BP 125/73; PULSE 90; TEMP 36.8; O2SAT 97; BMI 19.2
--- NOTE | 2025-03-08 16:23 | CT_ITS ---
[address] [address] Patient Name: IVIS GAN MRN: [id number] date: 1950 Sex: M Assigned Patient Location: ED.MAIN Current Patient Location: ED.MAIN Accession/Order Number: [id number] Exam Date: 03/08/2025 16:29 Report Date: 03/08/2025 16:57 At the request of: ROXANA DAI Procedure: CT cervical spine wo con CT head/brain wo con, CT cervical spine wo con 03/08/2025 4:36 PM SIGNS AND SYMPTOMS: Fall hitting head on concrete floor TECHNIQUE:Multi-detector CT axial slices of the brain and cervical spine were obtained without IV contrast. Helical,sagittal, coronal, and 3-D reconstructions of the cervical spine were performed. CT was performed with one or more of the following dose reduction techniques: Automated exposure control, adjustment of the mA and/or kV according to patient size, or use of iterative reconstruction technique. COMPARISON: None. FINDINGS: Noncontrast head CT: There is no shift of the midline structures, acute intracranial bleeding, mass effects, or evidence of acute ischemia. There is benign-appearing mineralization within the deep barry nuclei. There is age-related cortical atrophy. This periventricular white matter hypoattenuation. Atherosclerotic changes are noted in the V4 segment of the right vertebral artery and intracranial segments of the internal carotid arteries. The ventricular system is normal in size. The brainstem and the cerebellum are unremarkable. The visualized intraorbital contents and the infratemporal soft tissues show no acute abnormality. Mucosal thickening is noted in the maxillary sinuses. The osseous structures in the skull base and the calvarium show no abnormality. There is a laceration over the left frontal scalp/left superior orbital rim laterally. Cervical spine: There is preservation of the vertebral body heights. There is severe intervertebral disc height loss at C3-C4, C4-C5, C5-C6, and C6-C7. There is endplate sclerosis at C5-C6. Facet hypertrophy is present throughout. No fractures or dislocations are seen. The alignment of the cervical spine is normal. The craniocervical junction is within normal limits. Degenerative changes are noted in the atlantoaxial joint. The prevertebral soft tissues are within normal limits. The paraspinous soft tissues are within normal limits. The lung apices are unremarkable. Calcified plaque is noted in the carotid bifurcations with evidence of previous endarterectomy on the right. CT/CT cervical spine wo con IMPRESSION: No acute intracranial pathology. There is evidence of laceration overlying the left frontal scalp and superior rim of the left orbit laterally without underlying fracture. Chronic age-related neurodegenerative changes are noted as above. No acute cervical spine injury. Degenerative changes are noted throughout the cervical spine as above. Impression dictated by: Luis Alberto Allen M.D. 03/08/2025 4:57 PM Dictation Location: [place] [address] Electronically authenticated by: [id number] Y Date: 03/08/2025 16:57
--- NOTE | 2025-03-08 16:23 | CT_ITS ---
The [address] [address] Patient Name: IVIS GAN MRN: [id number] date: 1950 Sex: M Assigned Patient Location: ED.MAIN Current Patient Location: ED.MAIN Accession/Order Number: [id number] Exam Date: 03/08/2025 16:29 Report Date: 03/08/2025 16:57 At the request of: ROXANA DAI Procedure: CT cervical spine wo con CT head/brain wo con, CT cervical spine wo con 03/08/2025 4:36 PM SIGNS AND SYMPTOMS: Fall hitting head on concrete floor TECHNIQUE:Multi-detector CT axial slices of the brain and cervical spine were obtained without IV contrast. Helical,sagittal, coronal, and 3-D reconstructions of the cervical spine were performed. CT was performed with one or more of the following dose reduction techniques: Automated exposure control, adjustment of the mA and/or kV according to patient size, or use of iterative reconstruction technique. COMPARISON: None. FINDINGS: Noncontrast head CT: There is no shift of the midline structures, acute intracranial bleeding, mass effects, or evidence of acute ischemia. There is benign-appearing mineralization within the deep barry nuclei. There is age-related cortical atrophy. This periventricular white matter hypoattenuation. Atherosclerotic changes are noted in the V4 segment of the right vertebral artery and intracranial segments of the internal carotid arteries. The ventricular system is normal in size. The brainstem and the cerebellum are unremarkable. The visualized intraorbital contents and the infratemporal soft tissues show no acute abnormality. Mucosal thickening is noted in the maxillary sinuses. The osseous structures in the skull base and the calvarium show no abnormality. There is a laceration over the left frontal scalp/left superior orbital rim laterally. Cervical spine: There is preservation of the vertebral body heights. There is severe intervertebral disc height loss at C3-C4, C4-C5, C5-C6, and C6-C7. There is endplate sclerosis at C5-C6. Facet hypertrophy is present throughout. No fractures or dislocations are seen. The alignment of the cervical spine is normal. The craniocervical junction is within normal limits. Degenerative changes are noted in the atlantoaxial joint. The prevertebral soft tissues are within normal limits. The paraspinous soft tissues are within normal limits. The lung apices are unremarkable. Calcified plaque is noted in the carotid bifurcations with evidence of previous endarterectomy on the right. CT/CT head/brain wo con IMPRESSION: No acute intracranial pathology. There is evidence of laceration overlying the left frontal scalp and superior rim of the left orbit laterally without underlying fracture. Chronic age-related neurodegenerative changes are noted as above. No acute cervical spine injury. Degenerative changes are noted throughout the cervical spine as above. Impression dictated by: Luis Alberto Allen M.D. 03/08/2025 4:57 PM Dictation Location: [place] [address] Electronically authenticated by: [id number] Y Date: 03/08/2025 16:57
--- NOTE | 2025-03-08 16:28 | ED_ITS ---
HPI HPI - General Adult General Chief complaint: Head Injury Stated complaint: HEAD INJURY Time Seen by Provider: 03/08/25 16:09 Source: patient Mode of arrival: ambulance Limitations: no limitations History of Present Illness HPI narrative: Patient is a 74-year-old male with a past medical history of previous stroke with left-sided residual symptoms and balance issues that was brought to the emergency department via EMS with complaints of fall while intoxicated. Patient states that he has balance issues since his stroke which caused him to fall and hit his head and he does take ASA 81 mg daily. Patient denies any LOC. Patient is GCS 15 on arrival. Multiple skin tears to his left upper extremity and a 3 cm laceration above his left eyebrow. No focal neurological deficits. Patient is not up-to-date on his tetanus. He denies any pain. He states that he had about 3 beers and did use marijuana today. He uses alcohol daily, he states about 3-4, states that he drinks more than that. He denies any headache, nausea, or vomiting. Related Data Home Medications ?Medication ?Instructions ?Recorded ?Confirmed citalopram 20 mg tablet 20 mg PO QDAY 03/03/2303/08 rosuvastatin 20 mg tablet 20 mg PO QDAY 03/03/2303/08 losartan 25 mg tablet mg 03/08/25 ropinirole 2 mg tablet mg 03/08/25 Allergies Allergy/AdvReac Type Severity Reaction Status Date / Time baclofen Allergy Unknown Verified 03/08/25 15:59 cyclobenzaprine (From Allergy Unknown Verified 03/08/25 15:59 Flexeril) onabotulinumtoxinA (From Allergy pain Verified 03/08/25 15:59 Botox) Opioid HPI Opioid Management Most Recent Opioid Data: Last Pain Scale 2 03/08/25, 16:00 Review of Systems ROS Status of ROS 10 or more systems reviewed and unremark able except as noted in history and below [facility] Medical History (Updated 03/08/25 @ 17:52 by SUHAS Cole) Carpal tunnel syndrome ?G56.00 - Carpal tunnel syndrome, unspecified upper limb (ICD-10) Depression ?F32.A - Depression, unspecified (ICD-10) Anxiety ?F41.9 - Anxiety disorder, unspecified (ICD-10) Asthma ?J45.909 - Unspecified asthma, uncomplicated (ICD-10) Poor dentition ?K08.9 - Disorder of teeth and supporting structures, unspecified (ICD-10) Sleep apnea ?G47.30 - Sleep apnea, unspecified (ICD-10) Left-sided weakness ?R53.1 - Weakness (ICD-10) Muscle spasm ?M62.838 - Other muscle spasm (ICD-10) Restless leg ?G25.81 - Restless legs syndrome (ICD-10) CVA (cerebral vascular accident) (2019) ?I63.9 - Cerebral infarction, unspecified (ICD-10) BPH (benign prostatic hyperplasia) ?N40.0 - Benign prostatic hyperplasia without lower urinary tract symptoms (ICD-10) Heartburn ?R12 - Heartburn (ICD-10) High cholesterol ?E78.00 - Pure hypercholesterolemia, unspecified (ICD-10) Hypertension ?I10 - Essential (primary) hypertension (ICD-10) Surgical History (Updated 03/03/23 @ 12:19 by Erica Zimmerman NP) History of surgery on lower extremity ?Z98.890 - Other specified postprocedural states (ICD-10) History of endarterectomy ?Z98.890 - Other specified postprocedural states (ICD-10) History of cardiac catheterization ?Z98.890 - Other specified postprocedural states (ICD-10) Family History (Updated 03/03/23 @ 11:42 by Erica Zimmerman NP) Other Family history of breast cancer Social History (Updated 03/10/23 @ 10:16 by Malka Silva RN) Within the past year, how often did you have a drink containing alcohol: 4 or more times a week Within the past year, how many standard drinks containing alcohol did you have on a typical day: 5 or 6 Smoking status: Former smoker Non-prescribed substance use: denies use and cannabis (any form) Highest level of school completed/degree received: high school graduate Little interest or pleasure in doing things: not at all Feeling down, depressed, or hopeless: not at all Exam Narrative Exam Narrative: General: No distress, age-appropriate Skin: Warm, dry, no pallor. No rash. Head: Normocephalic, 3 cm laceration left eyebrow, patient able to lift eyebrow. No palpable depression. Skull not visible. Scattered superficial skin tears from left hand, wrist, forearm, to elbow. Non repairable. All various sizes. Hemostatic. Neck: Supple, non-tender. Eye: Pupils are equal, round and EOMI. No scleral icterus. Ears, Nose, Mouth, and Throat: No nasal mucosal hypertrophy. Oral mucosa is moist, no posterior oropharynx erythema, uvula is mid-line Cardiovascular: Regular Rate and Rhythm without murmur, gallop or rub. Respiratory: No accessory muscle use or respiratory distress. Lungs are clear to auscultation, no wheezing, rales or rhonchi Chest Wall: no tenderness Back: No midline thoracic or lumbar vertebral tenderness. Musculoskeletal: Full ROM of all extremities, no calf or popliteal tenderness GI: Abdomen is soft, non-distended, non tender to palpation. No masses appreciated. No rebound, guarding, or rigidity noted. Neurological: A&O x4. No cranial nerve dysfunction observed. No truncal ataxia. Moves all extremities. Sensation intact. Psychiatric: Cooperative and interactive. Normal mood and affect. Constitutional Vital Signs, click to edit/add: Last Vital Signs Temp 98.3 F 03/08/25 15:56 Pulse 90 03/08/25 15:56 Resp 18 03/08/25 15:56 BP 125/73 03/08/25 15:56 Pulse Ox 97 03/08/25 15:56 O2 Del Method Room Air 03/08/25 15:56 Course Vital Signs Vital signs: Vital Signs Temperature 98.3 F 03/08/25 15:56 Pulse Rate 90 03/08/25 15:56 Respiratory Rate 18 03/08/25 15:56 Blood Pressure 125/73 03/08/25 15:56 Pulse Oximetry 97 03/08/25 15:56 Oxygen Delivery Method Room Air 03/08/25 15:56 Temperature 98.3 F 03/08/25 15:56 Pulse Rate 90 03/08/25 15:56 Respiratory Rate 18 03/08/25 15:56 Blood Pressure 125/73 03/08/25 15:56 Pulse Oximetry 97 03/08/25 15:56 Oxygen Delivery Method Room Air 03/08/25 15:56 Medical Decision Making MDM Narrative Medical decision making narrative: Patient is a 74-year-old male that presented to the emergency department via EMS with complaints of intoxicated trip and fall with head strike and facial laceration and multiple skin tears to the LUE. Patient denied any LOC but is on a ASA 81 mg daily. He is GCS 15 on arrival. He does admit to drinking 3-4 beers prior to the fall and smoking marijuana today. He is a daily drinker of 5 beers. He has had a previous stroke that has affected his left upper and lower extremities and balance. Differential diagnosis would be intracranial hemorrhage given the fall from standing with head strike with use of an antiplatelet, ASA [address] head ordered. CT cervical spine also ordered given patient has admitted to alcohol and drug use and cannot clear his C-Spine per [facility] criteria. He denies any neck pain and has full range of motion, nontender midline on exam, 5/5 upper and lower extremity strength. He denies any numbness/tingling above his baseline from his stroke to his extremities. CBC, BMP, EtOH ordered. CBC: No leukocytosis, Hgb 12.9 likely ABLA secondary to wounds. Hemodynamically stable in ED. BMP unremarkable CT head and cervical spine negative for acute traumatic injuries. CBC/BMP wnl. ETOH 99 but clinically is not mentally altered. C-Spine cleared. Facial laceration repaired with prolene sutures, see procedure section. Wound explored, no depression, skull not visible. IV placed and Ancef given due to size of wound and as patient has visible dirt all over him from falling in garage. Wound was irrigated but did not appear grossly contaminated. Patient able to lift eyebrow after repair, this is symmetrical bilaterally. Scattered skin tears from left hand up to left elbow were cleaned and dressed. Patient was advised that he would need sutures removed in 5-7 days and wound rechecks with his PCP. We discussed wound care and signs/ symptoms of infection to watch out for. He was advised if he experiences these or any new or worsening symptoms to return to the ED for evaluation. Patient was observed ambulating without issue in the ED. Patient was discharged with adove instructions and recommended close follow up with PCP. Differential Diagnosis Differential Diagnosis: Intracranial hemorrhage, soft tissue infection, concussion Lab Data Labs: Lab Results 03/08/25 Range/Units 16:43 WBC 7.0 (4.0-11.0) 10^3/uL RBC 3.35 L (4.70-6.10) 10^6/uL Hgb 12.1 L (14.0-18.0) g/dL Hct 34.3 L (42.0-54.0) % MCV 102.4 H (80.0-94.0) fL MCH 36.1 H (25.9-34.0) pg MCHC 35.3 H (29.9-35.2) g/dL RDW 12.8 (11.0-15.0) % Plt Count 226 (150-450) 10^3/uL MPV 8.4 L (9.5-13.5) fL Seg Neuts % (Manual) 86.0 H (43.0-75.0) Lymphocytes % (Manual) 4.0 L (20.5-60.0) % Monocytes % (Manual) 4.0 (1.7-12.0) % Eosinophils % (Manual) 4.0 (0.9-7.0) % Basophils % (Manual) 2.0 (0.2-2.0) % Neutrophils # (Manual) 6.02 (1.4-6.5) 10^3/uL Lymphocytes # (Manual) 0.28 L (1.20-3.80) 10^3/uL Monocytes # (Manual) 0.28 L (0.30-0.80) 10^3/uL Eosinophils # (Manual) 0.28 (0.00-0.70) 10^3/uL Basophils # (Manual) 0.14 H (0.00-0.10) 10^3/uL Sodium 137 (136-145) mmol/L Potassium 3.9 (3.5-5.1) mmol/L Chloride 103 (98-107) mmol/L Carbon Dioxide 25.5 (21.0-32.0) mmol/L Anion Gap 12.4 BUN 7.0 (7.0-18.0) mg/dL Creatinine 0.70 (0.70-1.30) mg/dL Est GFR ( Amer) >60 (>=60 mL/min/1.73m^2) Est GFR (Non-Af Amer) >60 (>=60 mL/min/1.73m^2) BUN/Creatinine Ratio 10.0 Glucose 90 (74-106) mg/dL Calcium 8.4 L (8.5-10.1) mg/dL Ethanol Quant 99 mg/dL Imaging Data CT scan - head: Attestation: I have reviewed the pertinent imaging results. Radiologist's impression: ITS Impressions Cervical Spine CT 03/08/25 16:23 IMPRESSION: No acute intracranial pathology. There is evidence of laceration overlying the left frontal scalp and superior rim of the left orbit laterally without underlying fracture. Chronic age-related neurodegenerative changes are noted as above. No acute cervical spine injury. Degenerative changes are noted throughout the cervical spine as above. Impression dictated by: Luis Alberto Allen M.D. 03/08/2025 4:57 PM Dictation Location: [employer] Electronically authenticated by: [id number] Y Date: 03/08/2025 16:[address] 03/08/25 16:23 IMPRESSION: No acute intracranial pathology. There is evidence of laceration overlying the left frontal scalp and superior rim of the left orbit laterally without underlying fracture. Chronic age-related neurodegenerative changes are noted as above. No acute cervical spine injury. Degenerative changes are noted throughout the cervical spine as above. Impression dictated by: Luis Alberto Allen M.D. 03/08/2025 4:57 PM Dictation Location: [employer] Electronically authenticated by: [id number] Y Date: 03/08/2025 16:57 Discharge Plan Discharge Chief Complaint: Head Injury Clinical Impression: Closed head injury, Facial laceration, Multiple skin tears Patient Disposition: Home, Self-Care Time of Disposition Decision: 17:52 Condition: Good Mode of Transportation: Private Vehicle Prescriptions / Home Meds: No Action citalopram 20 mg tablet 20 mg PO QDAY rosuvastatin 20 mg tablet 20 mg PO QDAY ropinirole 2 mg tablet losartan 25 mg tablet Print Language: Urdu Instructions: Laceration (DC), Head Injury (DC) Additional Instructions: Cover the wound over your eye as it would likely drain, can leave open to air once dressing is clean for 24 hours. Gently cleanse with regular soap and water facial cut and skin tears and place dressings over them. If you start to develop any fever, night sweats, chills, thick brown/elizabeth drainage from wounds, or increasing redness/swelling return to the emergency department. If you experience any new or worsening symptoms return to the emergency department for evaluation. Have sutures removed by your primary care physician or the emergency department in 5 to 7 days. Referrals: KAYLEY CHRIS [Primary Care Provider, Unknown] - 1 week Discharge Date/Time: 03/08/25 18:56 Procedures ED Laceration Laceration Laceration 1: Site: face Side (if applicable): left Size (cm): 3 Description: stellate and irregular Depth: simple, single layer Anesthetic used: lidocaine 1% Anesthesia technique: local infiltration Pre-repair: wound explored, irrigated extensively, deep structures intact and wound margins revised Skin layer closed with: other (Prolene) Size (cm): 5-0 Number of sutures: 8 Technique: simple, interrupted
[2025-03-08] MEDS: DIPHTH,PERTUSS(ACELL),TET VAC 0.5 ML SYRINGE IM (16:44)
[2025-03-08 16:55] LABS: Hematocrit 34.3 % (42.0-54.0); Hemoglobin 12.1 g/dL (14.0-18.0); Mean Corpuscular HGB Conc 35.3 g/dL (29.9-35.2); Mean Corpuscular Hemoglobin 36.1 pg (25.9-34.0); Mean Corpuscular Volume 102.4 fL (80.0-94.0); Platelet Count 226 10^3/uL (150-450); Red Blood Count 3.35 10^6/uL (4.70-6.10); White Blood Count 7.0 10^3/uL (4.0-11.0)
--- OUTSIDE RECORDS SUMMARY | 2025-03-08 17:04 | XMS_ITS | CCD ---
Author Organization [facility]formerly [facility] Partnership [facility] Care Team Providers Care Business Continuity Planning Director Name Role Phone Shaikh Ruiz MD Primary Care Provider MARY LOU Liu Primary Care Provider MD Vinicio Tamez Attending Provider DO Jaswant Zaidi Attending Provider MD Sweetie Mirza Attending Provider MARY LOU Law Attending Provider DO Jaswant Zaidi Referring Provider [phone] DO Jaswant Zaidi Referring Provider [phone] Ruddy LEAL, DO Nabil Castaneda Attending Provider [phone] MD Sweetie Mirza Attending Provider DO Jaswant Zaidi Referring Provider Ruddy II, DO Nabil J Attending Provider DO Jaswant Zaidi Referring Provider Ruddy II, DO Nabil J Attending Provider DO Jaswant Zaidi Referring Provider Ruddy LEAL, DO Nabil Castaneda Attending Provider [phone] MD Sweetie Mirza Attending Provider DO Jaswant Zaidi Referring Provider Ruddy LEAL, DO Nabil J Attending Provider [phone] DO Shanelle Mallory Attending Provider Murcek, DO Jaswant Referring Provider Ruddy II, DO Nabil Castaneda Attending Provider [phone] Murcek, DO Jaswant Referring Provider [phone] Murcek, DO Jaswant Referring Provider MARY LOU Liu [facility] Primary Care Provider MD Sweetie Miraz Attending Provider Muryohannesk, DO Jaswant Referring Provider [phone] Ruddy II, DO Nabil Castaneda Attending Provider Alexa LARSEN, Perlita A Primary Care Provider Vinicio Tamez MD Unavailable Dyan DOJaswant W Unavailable Alexa BARRETO, [facility] Primary Care Provider Jaswant Zaidi DO Referring Provider [phone] Nabil Fox DO Attending Provider Jaswant Zaidi DO Attending Provider [facility] Dyan DOJaswant Referring Provider Nabil Fox DO Attending Provider [phone] Jaswant Zaidi DO Attending Provider [phone] Alexa BARRETO, [facility] Primary Care Provider Vinicio Tamez MD Unavailable Deirdre Law Attending Unavailable Deirdre Law Admitting Unavailable Giselle Liufer Primary Care Unavailable Alexa Perlita Primary Care Unavailable Dyan Jaswant Attending Unavailable Dyan, Jaswant Admitting Unavailable Giselle Liufer Primary Care Unavailable Jaswant Zaidi Attending Unavailable Dyan Jaswant Admitting Unavailable Shanelle Mallory Attending Unavailable Rohrbacher, Perlita Primary Care Unavailable Itdavidkowitz, Shanelle Admitting Unavailable [facility]available Jaswant Zaidi Attending Unavailable Jaswant Zaidi Admitting Unavailable Ani, Deirdre M Attending Unavailable Ani, Deirdre M Admitting Unavailable [facility] Unavailable Ani, Deirdre M Attending Unavailable Ani, Deirdre M Admitting [facility]available [facility] Ani, Deirdre M Attending Unavailable Ani, Deirdre M Admitting Unavailable [facility] Unavailable Ani, Deirdre M Attending Unavailable Ani, Deirdre M Admitting Unavailable [facility] Unavailable Ani, Deirdre M Admitting Unavailable Ani, Deirdre M Attending Unavailable Ani, Deirdre M Attending Unavailable Ani, Deirdre M Admitting Unavailable [facility] Care [facility] Unavailable Jaswant Zaidi Referring Unavailable Adamowicz II, Nabil J Attending Unavaila ble Adamowicz II, Nabil J Admitting Unavaila ble [facility] Unavailable Sweetie Mirza R Attending Unavailable Sweetie Mirza Admitting Unavailable Ani, Deirdre M Attending Unavailable Ani, Deirdre M Admitting Unavailable [facility] Unavailable Ani, Deirdre M Attending Unavailable Ani, Deirdre M Admitting Unavailable [facility] Unavailable Ani, Deirdre M Attending Unavailable Ani, Deirdre M Admitting Unavailable [facility] Unavailable JASWANT ZAIDI Attending Unavailable VINICIO TAMEZ Referring Unavailable JASWANT ZAIDI Attending Unavailable JASWANT ZAIDI Attending Unavailable JASWANT ZAIDI Attending Unavailable JASWANT ZAIDI Attending Unavailable BRYAN JUAREZ Attending Unavailable JASWANT ZAIDI Attending Unavailable JASWANT ZAIDI Attending Unavailable VINICIO TAMEZ Referring Unavailable FUNMILAYO MALLORYIC H Attending Unavailable JASWANT ZAIDI Attending Unavailable JASWANT ZAIDI Attending Unavailable HALI ROLLE Attending Unavailable Allergies Allergy Classification Reported Allergen(s) Allergy Type Date of Onset Reaction(s) Facility Anti-Epileptic Agents (1 source) gabapentin Drug Allergy 4 muscle stiffness [facility] Baclofen (1 source) Baclofen Drug Allergy 4 muscle stiffness [facility] Botulinum Toxin Type A (1 source) Botulinum Toxin Type A Drug Allergy 4 muscle stiffness [facility] cyclobenzaprine (1 source) cyclobenzaprine Drug Allergy 4 muscle stiffness [facility] tiZANidine (1 source) tiZANidine Drug Allergy 4 muscle stiffness [facility] (20 sources) Baclofen Drug Allergy 3 muscle stiffness [facility] Work Phone: (20 sources) Botulinum Toxin Type A Drug Allergy 3 muscle stiffness [facility] (20 sources) cyclobenzaprine Drug Allergy 3 muscle stiffness [facility] (20 sources) gabapentin Drug Allergy 3 muscle stiffness [facility] (20 sources) tiZANidine; Translations: [tizanidine] Drug Allergy 4 muscle stiffness [facility] (20 sources) Botulinum Toxin Type A Drug Allergy 4 [facility] (1 source) Baclofen Drug Allergy 5 [facility] Repository (1 source) Botulinum Toxin Type A Drug Allergy 5 [facility] Repository (1 source) cyclobenzaprine Drug Allergy 5 [facility] Repository (1 source) gabapentin Drug Allergy 5 [facility] Repository Medications Current Medications Medication Drug Class(es) Dates Sig (Normalized) Sig (Original) [id number] 200 actuat albuterol 0.09 mg/actuat metered dose inhaler (1 source) beta2-Adrenergic Agonist Start: 10-22-2022 Ventolin HFA 108 (90 Base) MCG/ACT inhaler every 4 (four) hours. 0 10/22/2022 Active Calcium-Vitamin D-Iron (CALCIUM 600 IRON/D PO) (11 sources) Calcium-Vitamin D-Iron (CALCIUM 600 IRON/D PO) Take 1 tablet by mouth Daily Active citalopram 20 mg oral tablet (20 sources) Serotonin Reuptake Inhibitor Start: 06-12-2023 End: 09-06-2024 take 1 tablet by mouth once daily citalopram (CeleXA) 20 MG tablet Indications: Anxiety disorder, unspecified TAKE 1 TABLET BY MOUTH DAILY 100 tablet 06/12/2023 Active ferrous sulfate 325 mg oral [...] 22, 2023 1:00am March 04, 2024 10:05am losartan potassium 25 mg oral tablet (20 sources) Angiotensin 2 Receptor Junie Start: 09-06-2024 take 2 tablets by mouth once daily in the morning Losartan 25 mg tablet Active 50 MG PO Every morning September 06, 2024 12:00am Start: 07-15-2022 End: 03-04-2024 losartan (Cozaar) 50 MG tabl et 1 (one) time each day at the same time 07/15/2022 Active rOPINIRole 2 mg oral tablet (20 sources) Nonergot Dopamine Agonist Start: 02-28-2025 rOPINIRole (Requip) 2 MG tablet Indications: Restless Leg Syndrome Take one (2 mg) tablet by mouth in the morning, take one (2 mg) tablet by mouth in the evening, and take four (2 mg) tablets by mouth at bed. 180 tablet 1 02/28/2025 Active Start: 08-27-2023 End: 09-30-2024 Ropinirole 1 mg tablet Disco ntinued 1 MG PO .COMPLEX 360 90 March 15, 2024 2:12pm September 30, 2024 3:16pm 1 tablet in am, 1 tablet in the afternoon and 2 tablets in pm Start: 08-22-2023 End: 08-27-2023 take 1 tablet by mouth three times daily Ropinirole 2 mg tablet Discontinued 2 MG PO Three times daily August 22, 2023 1:00am August 27, 2023 9:49am Start: 06-12-2023 End: 02-28-2025 take 0.5 tablet by mouth once daily before mealtime, then take 1 tablet by mouth at bedtime rOPINIRole (Requip) 2 MG tablet Indications: Restless Leg Syndrome Take 0.5 tablets (1 mg) by mouth Daily before meals AND 1 tablet (2 mg) at bedtime. 135 tablet 1 06/12/2023 02/28/2025 Discontinued (Reorder) rosuvastatin calcium 20 mg oral tablet (20 sources) HMG-CoA Reductase Inhibitor Start: 09-06-2024 End: 09-06-2024 take 1 tablet by mouth once daily in the morning Rosuvastatin (Crestor) 10 mg tablet Discontinued 10 MG PO Every morning September 06, 2024 12:00am September 06, 2024 7:56am Start: 07-15-2022 End: 02-28-2025 rosuvastatin (Crestor) 20 MG tablet 1 (one) time each day at the same time 07/15/2022 02/28/2025 Discontinued (Therapy completed) thiamine 100 mg oral tablet (5 sources) Start: 02-28-2025 End: 02-28-2026 take 1 tablet by mouth once daily thiamine (Vitamin B-1) 100 MG tablet Indications: RLS (restless legs syndrome) Take 1 tablet (100 mg) by mouth Daily 30 tablet 11 02/28/2025 02/28/2026 Active Completed/Discontinued Medications Medication Drug Class(es) Dates [...] tablet Discontinued 100 MG PO Twice daily 11 04July 30, 2024 1:00am September 06, 2024 7:33am 72 hr fentaNYL 0.012 mg/hr transdermal system (20 sources) Opioid Agonist Start: 01-22-2024 End: 02-28-2025 fentaNYL (Duragesic) 12 MCG/HR 01/22/2024 02/28/2025 Discontinued (Therapy completed) Start: 01-22-2024 End: 02-24-2024 Fentanyl 12 mcg/hr patch 72 hour Discontinued 1 PATCH TRANSDERML Q72H 5 January 22, 2024 February 24, 2024 2:19pm Start: 01-22-2024 fentaNYL (Dura gesic) 12 MCG/HR Q72H 01/22/2024 Active fluconazole 100 mg oral tablet (20 sources) Azole Antifungal Start: 01-21-2024 End: 02-28-2025 fluconazole (Diflucan) 100 MG tablet 01/21/2024 02/28/2025 Discontinued (Therapy completed) Start: 01-21-2024 End: 03-04-2024 Fluconazole 100 mg tablet Di scontinued 100 MG PO Daily 15 January 21, 2024 12:00am March 04, 2024 10:05am Take two tablets on day 1 and one tablet thereafter. lisinopril 20 mg oral tablet (20 sources) Angiotensin Converting Enzyme Inhibitor End: 02-28-2025 lisinopril 20 MG tablet 02/28/2025 Discontinued (Therapy completed) Magic Mouthwash W/Lidocaine 240 Ml Bottle (11 [...] needed for mucositis 240 January 06, 2024 11:00pm March 04, 2024 9:06am Take 5ml every 6 hours as needed, SWISH AND SWALLOW. mometasone furoate 1 mg/ml topical cream (20 sources) Corticosteroid Start: 01-19-2024 End: 02-28-2025 mometasone (Elocon) 0.1 % cream 01/19/2024 02/28/2025 Discontinued (Therapy completed) Start: 01-19-2024 mometasone (El donis) 0.1 % cream Daily 01/19/2024 Active Start: 12-18-2023 End: 03-04-2024 Mometasone 0.1 % cream Disco ntinued 1 APPLIC TOPICAL Daily January 19, 2024 2:06pm March 04, 2024 10:06am Apply to radiation site, once a day, AFTER radiation treatments. omeprazole 40 mg delayed release oral capsule (20 sources) Proton Pump Inhibitor Start: 07-15-2024 End: 09-06-2024 take 1 capsule by mouth twice daily Omeprazole 40 mg capsule,delayed release(DR/EC) Discontinued 40 MG PO Twice daily 180 90 July 15, 2024 2:17pm September 06, 2024 7:33am Start: 07-07-2024 End: 02-28-2025 take 1 capsule by mouth once daily omeprazole (PriLOSEC) [address] capsule Take 40 mg by mouth Daily 07/07/2024 02/28/2025 Discontinued (Therapy completed) ondansetron 8 mg disintegrating oral tablet (20 sources) Serotonin-3 Receptor Antagonist Start: 12-22-2023 End: 02-28-2025 ondansetron ODT (Zofran-ODT) 8 MG disintegrating tablet 12/22/2023 02/28/2025 Discontinued (Therapy completed) oxyCODONE hydrochloride 1 mg/ml oral solution (20 [...] 2024 February 24, 2024 4:55pm Start: 01-07-2024 End: 02-28-2025 oxyCODONE (Roxicodone) 5 MG/ 5ML solution Take by mouth every 6 (six) hours if needed 01/07/2024 02/28/2025 Discontinued (Therapy completed) Start: 01-07-2024 End: 02-02-2024 take 5 mg by mouth every four to six hours as needed for pain Oxycodone 5 mg/5 mL solution Discontinued 5 MG PO EVERY 4-6 HOURS as needed for pain 250 7 January 19, 2024 February 02, 2024 12:59pm pregabalin 150 mg oral capsule (20 sources) Start: 09-01-2023 End: 02-28-2025 take 1 capsule by mouth three times daily pregabalin (Lyrica) 150 MG capsule Indications: Restless legs syndrome TAKE 1 CAPSULE BY MOUTH THREE TIMES DAILY 270 capsule 09/01/2023 02/28/2025 Discontinued (Therapy completed) Start: 08-27-2023 End: 07-15-2024 take 1 capsule [...] Start: 10-30-2022 take 1 capsule by mo uth in the morning, then take 1 capsule by mouth in the evening, then take 1 capsule by mouth at bedtime pregabalin (Lyrica) 150 MG capsule Take 150 mg by mouth in the morning and 150 mg in the evening and 150 mg before bedtime. 0 10/30/2022 Active 72 hr scopolamine 0.0139 mg/hr transdermal system (20 sources) Anticholinergic Start: 01-15-2024 End: 02-28-2025 scopolamine (Transderm-Scop) 1 mg/72 hr patch 72 hour patch 01/15/2024 02/28/2025 Discontinued (Therapy completed) Start: 01-15-2024 scopolamine (T ransderm-Scop) 1 mg/72 hr patch 72 hour patch apply one PATCH topically behind ear EVERY 3 DAYS FOR excessive secretions 01/15/2024 Active Scopolamine Base (9 sources) Start: 01-14-2024 [...] every 3 days, place patch behind ear. silver sulfADIAZINE 10 mg/ml topical cream (20 sources) Sulfonamide Antibacterial Start: 01-28-2024 End: 02-28-2025 silver sulfADIAZINE (Silvadene) 1 % cream 01/28/2024 02/28/2025 Discontinued (Therapy completed) Sod Picosulf-Mag Ox-Citric Ac (20 sources) Start: [...] Onset: 12-20-2023 12-20-2023 Chronic Residual codes; unclassified (18 sources) Periodic leg movements of sleep ; Translations: [Periodic limb movement disorder] Onset: 12-20-2023 12-20-2023 Chronic Residual codes; unclassified (14 sources) H/O: radiation exposure; Translations: [Personal history of irradiation] 03-30-2024 Episodic Unclassified (1 source) Cough, unspecified; Translations: [Cough, unspecified] Onset: 01-26-2024 Past or Other Problems Problem Classification Problem Date Documented Date Episodic/Chronic Chronic obstructive pulmonary disease and bronchiectasis (20 sources) Bronchitis; Translations: [Bronchitis, not specified as acute or chronic] Onset: 4 01-07-2024 Episodic Deficiency and other anemia (20 [...] care] Onset: 4 01-07-2024 Episodic Other aftercare (20 sources) Aspirin therapy finding; Translations: [group home [...] 4 11-28-2023 Episodic Other upper respiratory infections (17 sources) Maxillary sinusitis; Translations: [Chronic maxillary sinusitis] [...] Test Name Value Interpretation Reference Range Facility Nehemiah 09-08-2024 L Specimen: [id number] Received: 09/08/24 Status: JHONY Amrik Num: [id number] Spec Type: Surgical Subm Dr: Jaswant Zaidi DO Tissues: A Esophagus Biopsy (ESO BX 18) B Esophagus Biopsy (ESO BX 16) Procedures: HE/Favian, Gross/Micro L4/2 Age/ Patient Sex Location Account Attending Physician Valente Lucio 74/M [place] [id number] Jaswant Zaidi DO SPEC NUM: [id number] RECD: 09/08/24 STATUS: JHONY MCBRIDE NUM: [id number] GEORGE: 09/08/[address] [facility] [address]: Jaswant Zaidi DO ENTERED: 09/08/[address]: MARY KAY TYPE: Surgical DEPT: S ENTERED BY: [id number] RECV BY: [id number] ORDERED: HE/4, Gross/Micro L4/2 ORDERED: HE/4, Gross/Micro L4/2 Pathological Diagnosis A. Esophagus at 18 cm (mucosal biopsies): Reactive squamous mucosa No active inflammation, glandular epithelium, or dysplasia seen B. Esophagus at 16 cm (mucosal biopsies): Reactive squamous mucosa, fragmented with hemorrhage No active inflammation, glandular epithelium, or dysplasia seen Note: The previous malignant biopsies were reviewed ([id number]). Clinical Information Dysphagia Gross Description Part A is received in formalin labeled with the patients name, date of , and esophageal biopsy 18 cm is a pale benjamin, focally erythematous, feathery, 0.4 cm in greatest dimension tissue bit. The specimen is entirely submitted in a single cassette. (1, ns, [id number] A) J Part B is received in formalin labeled with the patients name, date of , and esophageal biopsy 16 cm is a pale benjamin, focally erythematous, feathery, 0.3 cm in greatest dimension tissue bit. The specimen is filtered and entirely submitted in a single cassette. Specimen: [id number] Received: 09/08/24 Status: JHONY Mcbride Num: [id number] Spec Type: Surgical Subm Dr: Jaswant Zaidi DO Tissues: A Esophagus Biopsy (ESO BX 18) B Esophagus Biopsy (ESO BX 16) Procedures: HE/Favian, Gross/Micro L4/2 Patient: Valente Lucio [id number] (Continued) Specimen: Received: 09/08/24 (Continued) Gross Description (Continued) Signed (signature on file) Cisco Wahl Jr., MD 09/09/24 1041 Specimen: Received: 09/08/24 Status: JHONY Mcbride Num: [id number] Spec Type: Surgical Subm Dr: Jaswant Zaidi DO Tissues: A Esophagus Biopsy (ESO BX 18) B Esophagus Biopsy (ESO BX 16) Procedures: HE/4, Gross/Micro L4/2 Patient: Valente Lucio [id number] (Continued) Specimen: [id number] Received: 09/08/24 (Continued) Gross Description (Continued) (1, ns, [id number] B) CPT Codes 56376 x 2 Specimen: [id number] Received: 09/08/24 Status: JHONY Mcbride Num: [id number] Spec Type: Surgical Subm Dr: Jaswant Zaidi DO Tissues: A Esophagus Biopsy (ESO BX 18) B Esophagus Biopsy (ESO BX 16) Procedures: HE/Favian, Gross/Micro L4/2 Patient: Valente Lucio [id number] (Continued) Signed (signature on file) Cisco Wahl Jr., MD 09/09/24 1041 Normal [facility] Basic Metabolic Panelon 08-21 Anion gap [Moles/Vol] 8.2 mmol/L Normal 6.0-15.0 [facility] Comment on above: Performed By: #### C WEI CBC #### [address] Calcium [Mass/Vol] 9.0 mg/dL Normal 8.6-10.3 [facility] Comment on above: Result Comment: PERF ORMED BY: [place] [address] PATHOLOGIST WOOD MACHINIST ROXANE TAPIA M.D. Performed By: #### C WEI, CBC #### [facility] [address] [place] [address] [place] Chloride [Moles/Vol] 102 mmol/L Normal 98-107 [facility] Comment on above: Performed By: #### C REAT, CBC #### [facility] [address] [place] [address] [place] CO2 [Moles/Vol] 29.9 mmol/L Normal 21.0-31.0 [facility] Comment on above: Performed By: #### C REAT, CBC #### [facility] [address] [place] [address] [place] Creatinine [Mass/Vol] 0.48 mg/dL Low 0.70-1.30 [facility] Comment on above: Performed By: #### C REAT, CBC #### [facility] [address] [place] [address] [place] GFR/1.73 sq M.predicted MDRD (S/P/Bld) [Vol rate/Area] mL/min/{1.73_m2} Normal [facility] Comment on above: Performed By: #### C REAT, CBC #### [facility] [address] [place] [address] [place] Glucose [Mass/Vol] 88 mg/dL Normal 70-100 [facility] Comment on above: Result Comment: [place] Glucose Reference Range is dependent on time and content of last meal. Glucose of more than 200 mg/dL in a nonstressed, ambulatory subject supports the diagnosis of Diabetes Mellitus. ADA recommended reference range Performed By: #### C REAT, CBC #### [facility] [address] [place] [address] [place] Potassium [Moles/Vol] 4.1 mmol/L Normal 3.5-5.1 [facility] Comment on above: Performed By: #### C REAT, CBC #### [facility] [address] [place] [address] [place] Sodium [Moles/Vol] 136 mmol/L Normal 136-145 [facility] Comment on above: Performed By: #### C REAT, CBC #### [facility] [address] [place] [address] [place] Urea nitrogen [Mass/Vol] 9 mg/dL Normal 7-25 [facility] Comment on above: Performed By: #### C REAT, CBC #### [facility] [address] [place] [address] [place] Basophils Auto (Bld) [#/Vol] Ordered By: Jaswant Zaidi on 09-06-2024 Basophils (Bld) [#/Vol] Automated basoph il count 0.0-0.2 [facility] Basophils/100 WBC Auto (Bld) Ordered By: Jaswant Zaidi on 09-06-2024 Basophils/100 WBC (Bld) Automated basophil % . [facility] Calcium [Mass/volume] in Ser um or PlasmaOrdered By: Jaswant Zaidi on 09-06-2024 Calcium [Mass/Vol] Calcium [Mass/volume] in Serum or Plasma 8.6-10.3 [facility] Carbon dioxide, total [Moles /volume] in Serum or PlasmaOrdered By: Jaswant Zaidi on 09-06-2024 CO2 [Moles/Vol] Carbon dioxide, total [Moles/volume] in Serum or Plasma 21.0-31.0 [facility] Chloride [Moles/volume] in S neeru or PlasmaOrdered By: Jaswant Zaidi on 09-06-2024 Chloride [Moles/Vol] Chloride [Moles/volume] in Serum or Plasma 98-107 [facility] Complete Blood Count Auto Di ffon 09-06-2024 Basophils (Bld) [#/Vol] 0.0 10*3/uL Normal 0.0-0.2 [facility] Comment on above: Result Comment: PERF ORMED BY: [facility] [address] [place] [address] PATHOLOGIST WOOD MACHINIST ROXANE TAPIA M.D. Performed By: #### C BC #### [facility] [address] [place] [address] [place] Basophils/100 WBC (Bld) 0.7 % Normal . T jose [facility] Comment on above: Performed By: #### C BC #### [facility] [address] [place] [address] [place] Eosinophils (Bld) [#/Vol] 0.1 10*3/uL Normal 0.0-0.45 [facility] Comment on above: Performed By: #### C BC #### [place] [address] [place] Eosinophils/100 WBC (Bld) 1.4 % Normal . [facility] Comment on above: Performed By: #### C BC #### [address] Erythrocyte distribution width (RBC) [Ratio] 15.3 % High 12.0-14.8 [facility] Comment on above: Performed By: #### C BC #### [address] Hematocrit (Bld) [Volume fraction] 42.0 % Normal 38.8-50.0 [facility] Comment on above: Performed By: #### C BC #### [address] Hemoglobin (Bld) [Mass/Vol] 14.3 g/dL Normal 13.0-17.0 [facility] Comment on above: Performed By: #### C BC #### [address] Lymphocytes (Bld) [#/Vol] 0.9 10*3/uL Low 1.00-4.8 [facility] Comment on above: Performed By: #### C BC #### [address] Lymphocytes/100 WBC (Bld) 20.4 % Normal . [facility] Comment on above: Performed By: #### C BC #### [address] MCH (RBC) [Entitic mass] 34.0 pg Normal 27.5-35.2 [facility] Comment on above: Performed By: #### C BC #### [address] MCV (RBC) [Entitic vol] 99.9 fL Normal 83.5-101 T he [facility] Comment on above: Performed By: #### C BC #### [address] Mean Corpuscular HGB Conc 34.0 g/dL Normal 32.5-35.6 [facility] Comment on above: Performed By: #### C BC #### [address] Monocytes (Bld) [#/Vol] 0.3 10*3/uL Normal 0.0-0.8 [facility] Comment on above: Performed By: #### C BC #### [address] Monocytes/100 WBC (Bld) 7.4 % Normal . [facility] Comment on above: Performed By: #### C BC #### [address] Neutrophils (Bld) [#/Vol] 3.2 10*3/uL Normal 1.8-7.7 [facility] Comment on above: Performed By: #### C BC #### [address] Neutrophils/100 WBC (Bld) 70.1 % Normal . [facility] Comment on above: Performed By: #### C BC #### [address] NRBC% 0.1 /100{WBC} Normal 0-0.5 [facility] Comment on above: Performed By: #### C BC #### [address] Platelet mean volume (Bld) [Entitic vol] 7.4 fL Normal 6.6-10.1 [facility] Comment on above: Performed By: #### C BC #### [place] [address] [place] Platelets (Bld) [#/Vol] 201 10*3/uL Normal 150-450 [facility] Comment on above: Performed By: #### C BC #### [place] [address] [place] RBC (Bld) [#/Vol] 4.21 10*6/uL Normal 3.90-5.60 [facility] Comment on above: Performed By: #### C BC #### [address] WBC (Bld) [#/Vol] 4.5 10*3/uL Normal 4.1-10.5 [facility] Comment on above: Performed By: #### C BC #### [place] [id number] [facility] Creatinine [Mass/volume] in Serum or PlasmaOrdered By: Jaswant Zaidi on 09-06-2024 Creatinine [Mass/Vol] Creatinine [Mass/volume] in Serum or Plasma Low 0.70-1.30 [facility] ECG 12 lead ECGon 09-06-2024 ECG 12 lead ECG [facility] Main [place] [address] [place] [address] Electrocardiograph Report Signed Patient: Valente Lucio MR#: [id number] 34 : 1950 Acct:[id number] Age/Sex: 74 / M ADM Date: 09/06/24 Loc: Room: Type: [facility] Attending Dr: Jaswant Zaidi DO Ordering Provider: [...] Inferior leads Confirmed by JOSE ARMAS MD (Sherrie) on 09/06/2024 12:55:02 PM Referred By: Electronically Signed By: JOSE ARMAS MD Transcribed By: MUS Signed By Jose Armas MD 0 09/06/24 1255 Normal [facility] Eosinophils Auto (Bld) [#/Vo l]Ordered By: Jaswant Zaidi on 09-06-2024 Eosinophils (Bld) [#/Vol] Automated eosinophil count 0.0-0.45 [facility] Eosinophils/100 WBC Auto (Bl d)Ordered By: Jaswant Zaidi on 09-06-2024 Eosinophils/100 WBC (Bld) Automated eosinophil % . [facility] Erythrocyte distribution wid th Auto (RBC) [Ratio]Ordered By: Jaswant Zaidi on 09-06-2024 Erythrocyte distribution width (RBC) [Ratio] Erythrocyte distribution width [Ratio] by Automated count High 12.0-14.8 [facility] Glucose [Mass/volume] in Ser um or PlasmaOrdered By: Jaswant Zaidi on 09-06-2024 Glucose [Mass/Vol] Glucose [Mass/volume] in Serum or Plasma 70-100 [facility] Comment on above: ADA recommended refe rence rangeRandom Glucose Reference Range is dependent on time and content of last meal. Glucose of more than 200 mg/dL in a nonstressed, ambulatory subject supports the diagnosis of Diabetes Mellitus. Hematocrit Auto (Bld) [Volum e fraction]Ordered By: Jaswant Zaidi on 09-06-2024 Hematocrit (Bld) [Volume fraction] Hematocrit [Volume Fraction] of Blood by Automated count 38.8-50.0 [facility] Hemoglobin [Mass/volume] in BloodOrdered By: Jaswant Zaidi on 09-06-2024 Hemoglobin (Bld) [Mass/Vol] Hemoglobin [Mass/volume] in Blood 13.0-17.0 [facility] Leukocytes [#/volume] correc tejal for nucleated erythrocytes in Blood by Automated counOrdered By: Jaswant Zaidi on 09-06-2024 WBC corrected for nucl RBC Auto (Bld) [#/Vol] Leukocytes [#/volume] corrected for nucleated erythrocytes in Blood by Automated coun 4.1-10.5 [facility] Lymphocytes Auto (Bld) [#/Vo l]Ordered By: Jaswant Zaidi on 09-06-2024 Lymphocytes (Bld) [#/Vol] Lymphocytes [#/volume] in Blood by Automated count Low 1.00-4.8 [facility] Lymphocytes/100 WBC Auto (Bl d)Ordered By: Jaswant Zaidi on 09-06-2024 Lymphocytes/100 WBC (Bld) Lymphocytes/100 leukocytes in Blood by Automated count . [facility] MCH Auto (RBC) [Entitic mass ]Ordered By: Jaswant Zaidi on 09-06-2024 MCH (RBC) [Entitic mass] MCH [Entitic ma ss] by Automated count 27.5-35.2 [facility] MCHC Auto (RBC) [Mass/Vol]Or dered By: Jaswant Zaidi on 09-06-2024 MCHC (RBC) [Mass/Vol] MCHC [Mass/volume] by Automated count 32.5-35.6 [facility] MCV Auto (RBC) [Entitic vol] Ordered By: Jaswant Zaidi on 09-06-2024 MCV (RBC) [Entitic vol] MCV [Entitic vol ume] by Automated count 83.5-101 [facility] Monocytes Auto (Bld) [#/Vol] Ordered By: Jaswant Zaidi on 09-06-2024 Monocytes (Bld) [#/Vol] Automated blood monocyte count 0.0-0.8 [facility] Monocytes/100 WBC Auto (Bld) Ordered By: Jaswant Zaidi on 09-06-2024 Monocytes/100 WBC (Bld) Automated monocyte % . [facility] Neutrophils Auto (Bld) [#/Vo l]Ordered By: Jaswant Zaidi on 09-06-2024 Neutrophils (Bld) [#/Vol] Neutrophils [#/volume] in Blood by Automated count 1.8-7.7 [facility] Neutrophils/100 WBC Auto (Bl d)Ordered By: Jaswant Zaidi on 09-06-2024 Neutrophils/100 WBC (Bld) Automated neutrophil % . [facility] No Panel InformationOrdered By: Jaswant Zaidi on 09-06-2024 Estimated GFR (CKD-EPI) > 60.0 mL/Min [facility] Pharmacy Creatinine Clearance (Chem N/A [facility] Nucleated erythrocytes [Pres ence] in Blood by Automated countOrdered By: Jaswant Zaidi on 09-06-2024 Nucleated RBC Auto Ql (Bld) Nucleated erythrocytes [Presence] in Blood by Automated count 0-0.5 [facility] Platelet mean volume Auto (B ld) [Entitic vol]Ordered By: Jaswant Zaidi on 09-06-2024 Platelet mean volume (Bld) [Entitic vol] Platelet mean volume [Entitic volume] in Blood by Automated count 6.6-10.1 [facility] Platelets Auto (Bld) [#/Vol] Ordered By: Jaswant Zaidi on 09-06-2024 Platelets (Bld) [#/Vol] Platelets [#/vol ume] in Blood by Automated count 150-450 [facility] Potassium [Moles/volume] in Serum or PlasmaOrdered By: Jaswant Zaidi on 09-06-2024 Potassium [Moles/Vol] Potassium [Moles/volume] in Serum or Plasma 3.5-5.1 [facility] RBC Auto (Bld) [#/Vol]Ordere d By: Jaswant Zaidi on 09-06-2024 RBC (Bld) [#/Vol] Erythrocytes [#/volume] in Blood by Automated count 3.90-5.60 [facility] Serum or plasma anion gap de terminationOrdered By: Jaswant Zaidi on 09-06-2024 Anion gap [Moles/Vol] Serum or plasma anion gap determination 6.0-15.0 [facility] Sodium [Moles/volume] in Ser um or PlasmaOrdered By: Jaswant Zaidi on 09-06-2024 Sodium [Moles/Vol] Sodium [Moles/volume] in Serum or Plasma 136-145 [facility] Urea nitrogen [Mass/volume] in Serum or PlasmaOrdered By: Jaswant Zaidi on 09-06-2024 Urea nitrogen [Mass/Vol] Urea nitrogen [Mass/volume] in Serum or Plasma 7-25 [facility] WBC Auto (Bld) [#/Vol]Ordere d By: Jaswant Zaidi on 09-06-2024 WBC (Bld) [#/Vol] Leukocytes [#/volume] in Blood by Automated count 4.1-10.5 [facility] [place] esophaguson 08-16-2024 [place] esophagus [facility] Main [place] [id number] Fluoroscopy Report Signed Patient: Valente Lucio MR#: [id number] 34 : 1950 Acct:[id number] Age/Sex: 74 / M ADM Date: 08/16/24 Loc: XD Room: Type: [facility] Attending Dr: Jaswant Zaidi DO Copies to: Jaswant Zaidi DO Ordering Provider: Jaswant Zaidi DO Date of Service: 08/16/24 FL/FL esophagus: h/o head and neck radiation, dysphagia [place] esophagus 08/16/2024 8:20 AM SIGNS AND SYMPTOMS: 9.661 [id number] h/o head and neck radiation, dysphagia Esophagram [...] Alberto Allen M.D.08/16/2024 10:12 AM Dictation Location: [place] [address] Transcribed By: [facility] 08/16/24 1012 Dictated By: Luis Alberto Allen II, MD 08/16/24 1009 Signed By: 08/16/24 1012 Normal [facility] Fluoroscopy reportOrdered By : Luis Alberto Allen on 08-16-2024 RF Unspecified body region Views [facility] Main [address] [address] Fluoroscopy Report Signed Patient: Valente Lucio MR#: [id number] : 1950 Acct:[id number] Age/Sex: 74 / M ADM Date: 5 Loc: XD Room: Type: [facility] Attending Dr: Jaswant Zaidi DO Copies to: Jaswant Zaidi DO~ Ordering Provider: Jaswant Zaidi DO Date of Service: 08/16/24 FL/FL esophagus: h/o head and neck radiation, dysphagia [place] esophagus 08/16/2024 8:20 AM SIGNS AND SYMPTOMS: ^9.661 ^[id number] ^h/o head and neck radiation, dysphagia ^Esophagram [...] Alberto Allen M.D.08/16/2024 10:12 AM Dictation Location: [place] [address] Transcribed By: [facility] 08/16/24 1012 Dictated By: Luis Alberto Allen II, MD 08/16/24 1009 Signed By: 08/16/24 1012 [facility] Work Phone: Creatinine (Bld) [Mass/Vol]O rdered By: Nabil Fox on 07-01-2024 Creatinine [Mass/Vol] Whole blood creatinine measurement 0.6-1.3 [facility] Comment on above: ER/ESD physician is notified/shown all ISTAT results.Critical values may be confirmed by laboratory testing ifdeemed necessary by ER attending doctor. ISTAT XRAY CREon 07-01-2024 Creatinine [Mass/Vol] 0.7 mg/dL 0.6 - 1.3 mg/dL [facility] Comment on above: ER/ESD physician is notified/shown all ISTAT results. Critical values may be confirmed by laboratory testing if deemed necessary by ER attending doctor. ISTAT GFR [facility] ISTAT XRay CREon 07-01-2024 Creatinine [Mass/Vol] 0.7 mg/dL Normal 0.6-1.3 [facility] Comment on above: Result Comment: ER/E [place] physician is notified/shown all ISTAT results. Critical values may be confirmed by laboratory testing if deemed necessary by ER attending doctor. Performed By: #### I SCRE #### [address] ISTAT GFR >60.0 Normal [facility] Comment on above: Result Comment: PERF ORMED BY: [place] [address] PATHOLOGIST WOOD MACHINIST ROXANE TAPIA M.D. Performed By: #### I SCRE #### [address] MR orbits face neck wo/w con on 07-01-2024 MR orbits face neck wo/w con [facility] [place] [place] [address] MRI Report Signed Patient: Valente Lucio MR#: [id number] 34 : 1950 Acct:[id number] Age/Sex: 73 / M ADM Date: 07/01/24 Loc: Room: Type: [facility] Attending Dr: Nabil Fxo II DO Copies to: MD Nabil Krishnamurthy [...] Alberto Allen M.D.07/01/2024 6:14 PM Dictation Location: [place] [address] Transcribed By: [facility] 07/01/241813 Dictated By: Luis Alberto Allen II, MD 07/01/24 175 Signed By: 07/01/241813 Normal [facility] No Panel InformationOrdered By: Nabil Fox on 07-01-2024 Bedside Estimated GFR (eGFR) > 60.0 [facility] GLUCOSE POCT GLUCOMETERSon 0 06-25-2024 Glucose [Mass/Vol] 105 mg/dL [facility] Comment on above: Random Glucose Refer ence Range is dependent on time and content of last meal. Glucose of more than 200 mg/dL in a nonstressed, ambulatory subject supports the diagnosis of Diabetes Mellitus. [facility] Glucose Glucometer (BldC) [M ass/Vol]Ordered By: Nabil Fox on 06-25-2024 Glucose [Mass/Vol] Capillary blood glucose measurement by glucometer (mass/volume) [facility] Comment on above: Random Glucose Refer ence Range is dependent on time and content of last meal. Glucose of more than 200 mg/dL in a nonstressed, ambulatory subject supports the diagnosis of Diabetes Mellitus. Glucose Poct Glucometerson 0 06-25-2024 Glucose [Mass/Vol] 105 mg/dL Normal [facility] Comment on above: Result Comment: [place] Glucose Reference Range is dependent on time and content of last meal. Glucose of more than 200 mg/dL in a nonstressed, ambulatory subject supports the diagnosis of Diabetes Mellitus. PERFORMED BY: [place] [address] PATHOLOGIST WOOD MACHINIST ROXANE TAPIA M.D. Performed By: #### C RECLAY, CBC #### [address] PET tumor subq tx strat sb-m ton 06-25-2024 PET tumor subq tx strat sb-mt [facility] Main [place] [address] [place] [address] Nuclear Medicine Report Signed Patient: Valente Lucio MR#: [id number] 34 : 1950 Acct:[id number] Age/Sex: 73 / M ADM Date: 06/25/24 Loc: Room: Type: [facility] Attending Dr: Nabil Fox II DO [...] Ever Muñoz M.D.06/25/2024 3:44 PM Dictation Location: [place] [address] Transcribed By: [facility] 06/25/24 1544 Dictated By: Ever Muñoz DO 06/25/24 1511 Signed By: 06/25/24 1544 Normal [facility] Alanine aminotransferase [En zymatic activity/volume] in Serum or PlasmaOrdered By: Nabil Fox on 02-18-2024 ALT [Catalytic activity/Vol] 56 U/L [facility] 7-52 [facility] Comment on above: Performed By: #### C REAT, CBC #### [address] ALT [Catalytic activity/Vol] Alanine aminotransferase [Enzymatic activity/volume] in Serum or Plasma High [facility] Albumin [Mass/volume] in Ser um or Plasma by Bromocresol green (BCG) dye binding methoOrdered By: Nabil Fox on 02-18-2024 Albumin BCG dye [Mass/Vol] 3.3 g/dL Low 3.5-5.7 [facility] Albumin BCG dye [Mass/Vol] Albumin [Mass/volume] in Serum or Plasma by Bromocresol green (BCG) dye binding metho Low 3.5-5.7 [facility] Alkaline phosphatase [Enzyma tic activity/volume] in Serum or PlasmaOrdered By: Nabil Fox on 02-18-2024 ALP [Catalytic activity/Vol] 154 U/L [place] [address] Comment on above: Performed By: #### C WEI CBC #### [facility] [address] [place] [address] ALP [Catalytic activity/Vol] Alkaline phosphatase [Enzymatic activity/volume] in Serum or Plasma High [address] [place] [address] Anisocytosis LM Ql (Bld)Orde red By: Nabil Fox on 02-18-2024 Anisocytosis Ql (Bld) Anisocytosis [Presence] in Blood by Light microscopy [facility] Anisocytosis [Presence] in B lood by Light microscopyOrdered By: Nabil Fox on 02-18-2024 Anisocytosis Ql (Bld) Slight Normal [facility] Comment on above: Performed By: #### C WEI, CBC #### [facility] [address] [place] [address] [place] Aspartate aminotransferase [ Enzymatic activity/volume] in Serum or PlasmaOrdered By: Nabil Fox on 02-18-2024 AST [Catalytic activity/Vol] 46 U/L [address] Comment on above: Performed By: #### C WEI, CBC #### [place] [id number] [place] AST [Catalytic activity/Vol] Aspartate aminotransferase [Enzymatic activity/volume] in Serum or Plasma High [facility] Basophils Auto (Bld) [#/Vol] Ordered By: Nabil Fox on 02-18-2024 Basophils (Bld) [#/Vol] N/A [facility] Basophils (Bld) [#/Vol] Automated basoph il count [facility] Basophils/100 WBC Auto (Bld) Ordered By: Nabil Fox on 02-18-2024 Basophils/100 WBC (Bld) N/A [facility] Basophils/100 WBC (Bld) Automated basophil % [facility] Basophils/100 WBC Manual cnt (Bld)Ordered By: Nabil Fox on 02-18-2024 Basophils/100 WBC (Bld) Basophils/100 leukocytes in Blood by Manual count 0-2 [facility] Basophils/100 leukocytes in Blood by Manual countOrdered By: Nabil Fox on 02-18-2024 Basophils/100 WBC (Bld) 2 % Normal 0-2 [facility] Comment on above: Performed By: #### C RECLAY, CBC #### [facility] [address] [place] [address] Bilirubin.total [Mass/volume ] in Serum or PlasmaOrdered By: Nabil Fox on 02-18-2024 Bilirubin [Mass/Vol] 0.3 mg/dL Normal 0.3-1.0 [facility] Comment on above: Performed By: #### C REAT, CBC #### [facility] [address] [place] [address] Bilirubin [Mass/Vol] Bilirubin.total [Mass/volume] in Serum or Plasma 0.3-1.0 [facility] Calcium [Mass/volume] in Ser um or PlasmaOrdered By: Nabil Fox on 02-18-2024 Calcium [Mass/Vol] 8.7 mg/dL Normal 8.6-10.3 [facility] Comment on above: Performed By: #### C REAT, CBC #### [facility] [address] [place] [address] [place] Calcium [Mass/Vol] Calcium [Mass/volume] in Serum or Plasma 8.6-10.3 [facility] Carbon dioxide, total [Moles /volume] in Serum or PlasmaOrdered By: Nabil Fox on 02-18-2024 CO2 [Moles/Vol] 32.4 mmol/L High 21.0-31.0 [facility] Comment on above: Performed By: #### C REAT, CBC #### [facility] [address] CO2 [Moles/Vol] Carbon dioxide, total [Moles/volume] in Serum or Plasma High 21.0-31.0 [facility] Chloride [Moles/volume] in S neeru or PlasmaOrdered By: Nabil Fox on 02-18-2024 Chloride [Moles/Vol] 98 mmol/L Normal 98-107 [facility] Comment on above: Performed By: #### C REAT, CBC #### [facility] [address] Chloride [Moles/Vol] Chloride [Moles/volume] in Serum or Plasma 98-107 [facility] Comprehensive Metabolic Pane nehemiah 02-18-2024 Albumin [Mass/Vol] 3.3 g/dL Low 3.5-5.7 [facility] Comment on above: Performed By: #### C REAT, CBC #### [place] [address] [place] Creatinine Clr Calc Pharmacy 87.45 Normal [facility] Comment on above: Result Comment: PERF ORMED BY: [place] [address] PATHOLOGIST WOOD MACHINIST TRISTON MELGAR M.D. Performed By: #### C REAT, CBC #### [place] [address] [place] GFR/1.73 sq M.predicted MDRD (S/P/Bld) [Vol rate/Area] mL/min/{1.73_m2} Normal [facility] Comment on above: Performed By: #### C REAT, CBC #### [address] Comprehensive metabolic pane nehemiah 02-18-2024 Albumin [Mass/Vol] 3.3 g/dL Low 3.5 - 5.7 g/dL [facility] Albumin/Globulin [Mass ratio] 1.3 {ratio} [facility] ALP [Catalytic activity/Vol] 154 U/L High 34 - 104 U/L [facility] ALT [Catalytic activity/Vol] 56 U/L High 7 - 52 U/L [facility] Anion gap [Moles/Vol] 11.2 mmol/L 6.0 - 15.0 NO [facility] AST [Catalytic activity/Vol] 46 U/L High 13 - 39 U/L [facility] Bilirubin [Mass/Vol] 0.3 mg/dL 0.3 - 1 .0 mg/dL [facility] Calcium [Mass/Vol] 8.7 mg/dL 8.6 - 10. 3 mg/dL [facility] Chloride [Moles/Vol] 98 mmol/L 98 - 10 7 mmol/L [facility] CO2 [Moles/Vol] 32.4 mmol/L High 21.0 - 31.0 mmol/L [facility] Creatinine (U) [Mass/Vol] 0.68 mg/dL Low 0.70 - 1.30 mg/dL [facility] CREATININE CLR CALC PHARMACY 87.45 [facility] GFR/1.73 sq M.predicted MDRD (S/P/Bld) [Vol rate/Area] mL/min/{1.73_m2} [facility] Globulin (S) [Mass/Vol] 2.6 g/dL N [facility] Glucose [Mass/Vol] 112 mg/dL High 70 - 100 mg/dL [facility] Comment on above: Random Glucose Refer ence Range is dependent on time and content of last meal. Glucose of more than 200 mg/dL in a nonstressed, ambulatory subject supports the diagnosis of Diabetes Mellitus. ADA recommended reference range Interpretation and review of laboratory results Abnormal [facility] Potassium [Moles/Vol] 4.6 mmol/L 3.5 - 5.1 mmol/L [facility] Protein [Mass/Vol] 5.9 g/dL Low 6.4 - 8.9 g/dL [facility] Sodium [Moles/Vol] 137 mmol/L 136 - 145 mmol/L [facility] Urea nitrogen [Mass/Vol] 16 mg/dL 7 - 25 mg/d L [facility] Creatinine [Mass/volume] in Serum or PlasmaOrdered By: Nabil Fox on 02-18-2024 Creatinine [Mass/Vol] 0.68 mg/dL Low 0.70-1.30 [facility] Comment on above: Performed By: #### C REAT, CBC #### [address] Creatinine [Mass/Vol] Creatinine [Mass/volume] in Serum or Plasma Low 0.70-1.30 [facility] Diff and CBCon 02-18-2024 Giant Platelet Tally 1 /100{WBC} Normal [facility] Comment on above: Performed By: #### C REAT, CBC #### [address] Mean Corpuscular HGB Conc 33.5 g/dL Normal 32.5-35.6 [facility] Comment on above: Performed By: #### C REAT, CBC #### [address] Microcytosis Slight Normal [facility] Comment on above: Performed By: #### C REAT, CBC #### [address] Myelocytes 1 % High 0-0 [facility] Comment on above: Performed By: #### C REAT, CBC #### [address] Platelet Estimate Normal Normal Normal [facility] Comment on above: Performed By: #### C REAT, CBC #### [address] Platelet Morphology Normal Normal Normal [facility] Comment on above: Result Comment: PERF ORMED BY: [place] [address] PATHOLOGIST WOOD MACHINIST TRISTON MELGAR M.D. Performed By: #### C REAT, CBC #### [place] [address] [place] Polychromasia Slight Normal [facility] Comment on above: Performed By: #### C REAT, CBC #### [place] [address] Reactive Lymphocytes 1 % Normal 0-12 [facility] Comment on above: Performed By: #### C WEI, CBC #### [address] Eosinophils Auto (Bld) [#/Vo l]Ordered By: Nabil Fox on 02-18-2024 Eosinophils (Bld) [#/Vol] N/A [facility] Eosinophils (Bld) [#/Vol] Automated eosinophil count [facility] Eosinophils/100 WBC Auto (Bl d)Ordered By: Nabil Fox on 02-18-2024 Eosinophils/100 WBC (Bld) N/A [facility] Eosinophils/100 WBC (Bld) Automated eosinophil % [facility] Erythrocyte distribution wid th Auto (RBC) [Ratio]Ordered By: Nabil Fox on 02-18-2024 Erythrocyte distribution width (RBC) [Ratio] Erythrocyte distribution width [Ratio] by Automated count High 12.0-14.8 [facility] Erythrocyte distribution wid th [Ratio] by Automated countOrdered By: Nabil Fox on 02-18-2024 Erythrocyte distribution width (RBC) [Ratio] 17.1 % High 12.0-14.8 [facility] Comment on above: Performed By: #### C WEI, CBC #### [address] Erythrocyte morphology findi ng [Identifier] in BloodOrdered By: Nabil Fox on 02-18-2024 RBC morphology finding Nom (Bld) RBC morphology [facility] Erythrocytes [#/volume] in B lood by Automated countOrdered By: Nabil Fox on 02-18-2024 RBC (Bld) [#/Vol] 3.92 10*6/uL Normal 3.90-5.60 [facility] Comment on above: Performed By: #### C REAT, CBC #### [place] [address] [place] Giant platelets/100 leukocyt es [Ratio] in Blood by Manual countOrdered By: Nabil Fox on 08-28-2024 Giant platelets/100 WBC Manual cnt (Bld) [Ratio] 1 /100{WBC} [facility] Giant platelets/100 WBC Manual cnt (Bld) [Ratio] Giant platelets/100 leukocytes [Ratio] in Blood by Manual count [facility] Globulin Calc (S) [Mass/Vol] Ordered By: Nabil Fox on 02-18-2024 Globulin (S) [Mass/Vol] Serum globulin measurement by calculation (mass/volume) [facility] Glucose [Mass/volume] in Ser um or PlasmaOrdered By: Nabil Fox on 02-18-2024 Glucose [Mass/Vol] 112 mg/dL High 70-100 [facility] Comment on above: ADA recommended refe rence rangeRandom Glucose Reference Range is dependent on time and content of last meal. Glucose of more than 200 mg/dL in a nonstressed, ambulatory subject supports the diagnosis of Diabetes Mellitus. Result Comment: [place] Glucose Reference Range is dependent on time and content of last meal. Glucose of more than 200 mg/dL in a nonstressed, ambulatory subject supports the diagnosis of Diabetes Mellitus. [facility] recommended reference range Performed By: #### C REAT, CBC #### [facility] [address] [place] [address] Glucose [Mass/Vol] Glucose [Mass/volume] in Serum or Plasma High 70-100 [facility] Comment on above: ADA recommended [...] of Blood by Automated count Low 38.8-50.0 [facility] Hematocrit [Volume Fraction] of Blood by Automated countOrdered By: Nabil Fox on 02-18-2024 Hematocrit (Bld) [Volume fraction] 36.8 % Low 38.8-50.0 [facility] Comment on above: Performed By: #### C REAT, CBC #### [facility] [address] [place] [address] [place] Hemoglobin [Mass/volume] in BloodOrdered By: Nabil Fox on 02-18-2024 Hemoglobin (Bld) [Mass/Vol] 12.4 g/dL Low 13.0-17.0 [facility] Comment on above: Performed By: #### C REAT, CBC #### [facility] [address] Hemoglobin (Bld) [Mass/Vol] Hemoglobin [Mass/volume] in Blood Low 13.0-17.0 [facility] Leukocytes [#/volume] correc tejal for nucleated erythrocytes in Blood by Automated counOrdered By: Nabil Fox on 02-18-2024 WBC corrected for nucl RBC Auto (Bld) [#/Vol] 6.7 10*3/uL 4.1-10.5 [facility] WBC corrected for nucl RBC Auto (Bld) [#/Vol] Leukocytes [#/volume] corrected for nucleated erythrocytes in Blood by Automated coun 4.1-10.5 [facility] Leukocytes [#/volume] in Blo od by Automated countOrdered By: Nabil Fox on 02-18-2024 WBC (Bld) [#/Vol] 6.7 10*3/uL Normal 4.1-10.5 [facility] Comment on above: Performed By: #### C REAT, CBC #### [facility] [address] Lymphocytes Auto (Bld) [#/Vo l]Ordered By: Nabil Fox on 02-18-2024 Lymphocytes (Bld) [#/Vol] N/A [facility] Lymphocytes (Bld) [#/Vol] Lymphocytes [#/volume] in Blood by Automated count [facility] Lymphocytes/100 WBC Auto (Bl d)Ordered By: Nabil Fox on 02-18-2024 Lymphocytes/100 WBC (Bld) N/A [facility] Lymphocytes/100 WBC (Bld) Lymphocytes/100 leukocytes in Blood by Automated count [facility] Lymphocytes/100 WBC Manual c nt (Bld)Ordered By: Nabil Fox on 02-18-2024 Lymphocytes/100 WBC (Bld) Lymphocytes/100 leukocytes in Blood by Manual count Low 18-42 [facility] Lymphocytes/100 leukocytes i n Blood by Manual countOrdered By: Nabil Fox on 02-18-2024 Lymphocytes/100 WBC (Bld) 9 % Low 18-42 [facility] Comment on above: Performed By: #### C REAT, CBC #### [facility] [address] MCH Auto (RBC) [Entitic mass ]Ordered By: Nabil Fox on 02-18-2024 MCH (RBC) [Entitic mass] MCH [Entitic ma ss] by Automated count 27.5-35.2 [facility] MCH [Entitic mass] by Automa tejal countOrdered By: Nabil Fox on 02-18-2024 MCH (RBC) [Entitic mass] 31.5 pg Normal 27.5-35.2 [facility] Comment on above: Performed By: #### C WEI, CBC #### [facility] [address] MCHC Auto (RBC) [Mass/Vol]Or dered By: Nabil Fox on 02-18-2024 MCHC (RBC) [Mass/Vol] 33.5 g/dL 32.5-35.6 [facility] MCHC (RBC) [Mass/Vol] MCHC [Mass/volume] by Automated count 32.5-35.6 [facility] MCV Auto (RBC) [Entitic vol] Ordered By: Nabil Fox on 02-18-2024 MCV (RBC) [Entitic vol] MCV [Entitic vol ume] by Automated count 83.5-101 [facility] MCV [Entitic volume] by Auto mated countOrdered By: Nabil Fox on 02-18-2024 MCV (RBC) [Entitic vol] 94.0 fL Normal 83.5-101 [facility] Comment on above: Performed By: #### C REAT, CBC #### [facility] [address] Manual blood segmented neutr ophils/100 leukocytesOrdered By: Nabil Fox on 02-18-2024 Segmented neutrophils/100 WBC (Bld) 74 % High 50-70 [facility] Comment on above: Performed By: #### C WEI, CBC #### [facility] [address] [place] [address] [place] Microcytes LM Ql (Bld)Ordere d By: Nabil Fox on 02-18-2024 Microcytes Ql (Bld) Slight [facility] Microcytes Ql (Bld) Microcytes [Presence] in Blood by Light microscopy [facility] Monocytes Auto (Bld) [#/Vol] Ordered By: Nabil Fox on 02-18-2024 Monocytes (Bld) [#/Vol] N/A [facility] Monocytes (Bld) [#/Vol] Automated blood monocyte count [facility] Monocytes/100 WBC Auto (Bld) Ordered By: Nabil Fox on 02-18-2024 Monocytes/100 WBC (Bld) N/A [facility] Monocytes/100 WBC (Bld) Automated monocyte % [facility] Monocytes/100 WBC Manual cnt (Bld)Ordered By: Nabil Fox on 02-18-2024 Monocytes/100 WBC (Bld) Monocytes/100 leukocytes in Blood by Manual count High 211 [facility] Monocytes/100 leukocytes in Blood by Manual countOrdered By: Nabil Fox on 02-18-2024 Monocytes/100 WBC (Bld) 13 % High 2-11 [facility] Comment on above: Performed By: #### C WEI, CBC #### [facility] [address] [place] [address] [place] Myelocytes/100 WBC Manual cn t (Bld)Ordered By: Nabil Fox on 02-18-2024 Myelocytes/100 WBC (Bld) 1 % High 0-0 [facility] Myelocytes/100 WBC (Bld) Myelocytes/100 leukocytes in Blood by Manual count High 0-0 [facility] Neutrophils Auto (Bld) [#/Vo l]Ordered By: Nabil Fox on 02-18-2024 Neutrophils (Bld) [#/Vol] N/A [facility] Neutrophils (Bld) [#/Vol] Neutrophils [#/volume] in Blood by Automated count [facility] Neutrophils/100 WBC Auto (Bl d)Ordered By: Nabil Fox on 02-18-2024 Neutrophils/100 WBC (Bld) N/A [facility] Neutrophils/100 WBC (Bld) Automated neutrophil % [facility] No Panel InformationOrdered By: Nabil Fox on 02-18-2024 Estimated GFR (CKD-EPI) > 60.0 mL/Min [facility] Creatinine Clearance (Chem 87.45 [facility] Nucleated erythrocytes [Pres ence] in Blood by Automated countOrdered By: Nabil Fox on 02-18-2024 Nucleated RBC Auto Ql (Bld) N/A [facility] Nucleated RBC Auto Ql (Bld) Nucleated erythrocytes [Presence] in Blood by Automated count [facility] Platelet adequacy [Presence] in Blood by Light microscopyOrdered By: Nabil Fox on 02-18-2024 Platelets LM Ql (Bld) Normal Normal [facility] Platelets LM Ql (Bld) Platelet adequacy [Presence] in Blood by Light microscopy Normal [facility] Platelet mean volume Auto (B ld) [Entitic vol]Ordered By: Nabil Fox on 02-18-2024 Platelet mean volume (Bld) [Entitic vol] Platelet mean volume [Entitic volume] in Blood by Automated count 6.6-10.1 [facility] Platelet mean volume [Entiti c volume] in Blood by Automated countOrdered By: Nabil Fox on 02-18-2024 Platelet mean volume (Bld) [Entitic vol] 7.4 fL Normal 6.6-10.1 [facility] Comment on above: Result Comment: PERF ORMED BY: [place] [address] PATHOLOGIST WOOD MACHINIST TRISTON MELGAR M.D. Performed By: #### C REAT, CBC #### [address] Platelet morphology finding [Identifier] in BloodOrdered By: Nabil Fox on 02-18-2024 Platelet morphology finding Nom (Bld) Normal Normal [facility] Platelet morphology finding Nom (Bld) Platelet morphology finding [Identifier] in Blood Normal [facility] Platelets Auto (Bld) [#/Vol] Ordered By: Nabil Fox on 02-18-2024 Platelets (Bld) [#/Vol] Platelets [#/vol ume] in Blood by Automated count 150-450 [facility] Platelets [#/volume] in Bloo d by Automated countOrdered By: Nabil Fox on 02-18-2024 Platelets (Bld) [#/Vol] 435 10*3/uL Normal 150-450 [facility] Comment on above: Performed By: #### C WEI, CBC #### [place] [address] [place] Polychromasia [Presence] in Blood by Light microscopyOrdered By: Nabil Fox on 02-18-2024 Polychromasia LM Ql (Bld) Slight [facility] Polychromasia LM Ql (Bld) Polychromasia [Presence] in Blood by Light microscopy [facility] Potassium [Moles/volume] in Serum or PlasmaOrdered By: Nabil Fox on 02-18-2024 Potassium [Moles/Vol] 4.6 mmol/L Normal 3.5-5.1 [facility] Comment on above: Performed By: #### C WEI, CBC #### [address] Potassium [Moles/Vol] Potassium [Moles/volume] in Serum or Plasma 3.5-5.1 [facility] Protein [Mass/volume] in Ser um or PlasmaOrdered By: Nabil Fox on 02-18-2024 Protein [Mass/Vol] 5.9 g/dL Low 6.4-8.9 [facility] Comment on above: Performed By: #### C WEI, CBC #### [place] [address] [place] Protein [Mass/Vol] Protein [Mass/volume] in Serum or Plasma Low 6.4-8.9 [facility] RBC Auto (Bld) [#/Vol]Ordere d By: Nabil Fox on 02-18-2024 RBC (Bld) [#/Vol] Erythrocytes [#/volume] in Blood by Automated count 3.90-5.60 [facility] RBC morphologyOrdered By: Troy Fox on 02-18-2024 RBC morphology finding Nom (Bld) N/A [facility] Segmented neutrophils/100 WB C Manual cnt (Bld)Ordered By: Nabil Fox on 02-18-2024 Segmented neutrophils/100 WBC (Bld) Manual blood segmented neutrophils/100 leukocytes High 50-70 [facility] Serum globulin measurement b y calculation (mass/volume)Ordered By: Nabil Fox on 02-18-2024 Globulin (S) [Mass/Vol] 2.6 g/dL Normal [facility] Comment on above: Performed By: #### C REAT, CBC #### [facility] [address] Serum or plasma albumin/glob ulin mass ratioOrdered By: Nabil Fox on 02-18-2024 Albumin/Globulin [Mass ratio] 1.3 {ratio} Normal [facility] Comment on above: Performed By: #### C REAT, CBC #### [facility] [address] Albumin/Globulin [Mass ratio] Serum or plasma albumin/globulin mass ratio [facility] Serum or plasma anion gap de terminationOrdered By: Nabil Fox on 02-18-2024 Anion gap [Moles/Vol] 11.2 mmol/L Normal 6.0-15.0 [facility] Comment on above: Performed By: #### C REAT, CBC #### [facility] [address] [place] [address] [place] Anion gap [Moles/Vol] Serum or plasma anion gap determination 6.0-15.0 [facility] Sodium [Moles/volume] in Ser um or PlasmaOrdered By: Nabil Fox on 02-18-2024 Sodium [Moles/Vol] 137 mmol/L Normal 136-145 [facility] Comment on above: Performed By: #### C REAT, CBC #### [facility] [address] Sodium [Moles/Vol] Sodium [Moles/volume] in Serum or Plasma 136-145 [facility] Urea nitrogen [Mass/volume] in Serum or PlasmaOrdered By: Nabil Fox on 02-18-2024 Urea nitrogen [Mass/Vol] 16 mg/dL Normal 01-14 [facility] Comment on above: Performed By: #### C REAT, CBC #### [facility] [address] Urea nitrogen [Mass/Vol] Urea nitrogen [Mass/volume] in Serum or Plasma 01-14 [facility] Variant lymphocytes/100 WBC Manual cnt (Bld)Ordered By: Nabil Fox on 02-18-2024 Variant lymphocytes/100 WBC (Bld) 1 % 0 [facility] Variant lymphocytes/100 WBC (Bld) Variant lymphocytes/100 leukocytes in Blood by Manual count 0 [facility] WBC Auto (Bld) [#/Vol]Ordere d By: Nabil Fox on 02-18-2024 WBC (Bld) [#/Vol] Leukocytes [#/volume] in Blood by Automated count 4.1-10.5 [facility] Anisocytosis [Presence] in B lood by Light microscopyOrdered By: Nabil Fox on 01-28-2024 Anisocytosis Ql (Bld) Slight Normal [facility] Comment on above: Performed By: #### S CAN CBC, CREAT #### [facility] [address] Automated basophil %Ordered By: Nabil Fox on 01-28-2024 Basophils/100 WBC (Bld) 0.7 % Normal . [facility] Comment on above: Performed By: #### S CAN CBC, CREAT #### [facility] [address] Automated basophil countOrde red By: Nabil Fox on 01-28-2024 Basophils (Bld) [#/Vol] 0.0 10*3/uL Normal 0.0-0.2 [facility] Comment on above: Performed By: #### S CAN CBC, CREAT #### [facility] [address] [place] [address] Automated blood monocyte cou ntOrdered By: Nabil Fox on 01-28-2024 Monocytes (Bld) [#/Vol] 0.1 10*3/uL Normal 0.0-0.8 [facility] Comment on above: Performed By: #### S CAN CBC, CREAT #### [address] Automated eosinophil %Ordere d By: Nabil Fox on 01-28-2024 Eosinophils/100 WBC (Bld) 1.2 % Normal . [facility] Comment on above: Performed By: #### S CAN CBC, CREAT #### [address] Automated eosinophil countOr dered By: Nabil Fox on 01-28-2024 Eosinophils (Bld) [#/Vol] 0.0 10*3/uL Normal 0.0-0.45 [facility] Comment on above: Performed By: #### S CAN CBC, CREAT #### [address] Automated monocyte %Ordered By: Nabil Fox on 01-28-2024 Monocytes/100 WBC (Bld) 5.9 % Normal . [facility] Comment on above: Performed By: #### S CAN CBC, CREAT #### [address] Automated neutrophil %Ordere d By: Nabil Fox on 01-28-2024 Neutrophils/100 WBC (Bld) 72.7 % Normal . [facility] Comment on above: Performed By: #### S CAN CBC, CREAT #### [address] Blood toxic granulation dete ction by light microscopyOrdered By: Nabil oFx on 01-28-2024 Toxic granules LM Ql (Bld) Moderate [facility] Toxic granules LM Ql (Bld) Blood toxic granulation detection by light microscopy [facility] Creatinineon 01-28-2024 Creatinine Clr Calc Pharmacy 87.45 Normal [facility] Comment on above: Result Comment: PERF ORMED BY: [place] [address] PATHOLOGIST WOOD MACHINIST TRISTON MELGAR M.D. Performed By: #### S CAN CBC, CREAT #### [facility] [address] [place] [address] GFR/1.73 sq M.predicted MDRD (S/P/Bld) [Vol rate/Area] mL/min/{1.73_m2} Normal [facility] Comment on above: Performed By: #### S CAN CBC, CREAT #### [address] Creatinine [Mass/volume] in Serum or PlasmaOrdered By: Nabil Fox on 01-28-2024 Creatinine [Mass/Vol] 0.73 mg/dL Normal 0.70-1.30 [facility] Comment on above: Performed By: #### S CAN CBC, CREAT #### [facility] [address] [place] [address] Dohle bodies detectionOrdere d By: Nabil Fox on 01-28-2024 Dohle body LM Ql (Bld) [facility]light [facility] Dohle body [Presence] in Blo od by Light microscopyOrdered By: Nabil Fox on 01-28-2024 Dohle body LM Ql (Bld) Dohle bodies detection [facility] Erythrocyte distribution wid th [Ratio] by Automated countOrdered By: Nabil Fox on 01-28-2024 Erythrocyte distribution width (RBC) [Ratio] 14.0 % Normal 12.0-14.8 [facility] Comment on above: Performed By: #### S CAN CBC, CREAT #### [facility] [address] [place] [address] [place] Erythrocytes [#/volume] in B lood by Automated countOrdered By: Nabil Fox on 01-28-2024 RBC (Bld) [#/Vol] 3.77 10*6/uL Low 3.90-5.60 [facility] Comment on above: Performed By: #### S CAN CBC, CREAT #### [facility] [address] [place] [address] Helmet cell detectionOrdered By: Nabil Fox on 01-28-2024 Helmet cells LM Ql (Bld) Slight [facility] Helmet cells [Presence] in B lood by Light microscopyOrdered By: Nabil Fox on 01-28-2024 Helmet cells LM Ql (Bld) Helmet cell detection [facility] Hematocrit [Volume Fraction] of Blood by Automated countOrdered By: Nabil Fox on 01-28-2024 Hematocrit (Bld) [Volume fraction] 35.4 % Low 38.8-50.0 [facility] Comment on above: Performed By: #### S EWA CBC, CREAT #### [facility] [address] [place] [address] Hemoglobin [Mass/volume] in BloodOrdered By: Nabil Fox on 01-28-2024 Hemoglobin (Bld) [Mass/Vol] 12.1 g/dL Low 13.0-17.0 [facility] Comment on above: Performed By: #### S EWA CBC, CREAT #### [address] Leukocytes [#/volume] correc tejal for nucleated erythrocytes in Blood by Automated counOrdered By: Nabil Fox on 01-28-2024 WBC corrected for nucl RBC Auto (Bld) [#/Vol] 1.2 10*3/uL Low 4.1-10.5 [facility] Leukocytes [#/volume] in Blo od by Automated countOrdered By: Nabil Fox on 01-28-2024 WBC (Bld) [#/Vol] 1.2 10*3/uL Low 4.1-10.5 [facility] Comment on above: Performed By: #### S EWA CBC, CREAT #### [facility] [address] [place] [address] [place] Lymphocytes [#/volume] in Bl ood by Automated countOrdered By: Nabil Fox on 01-28-2024 Lymphocytes (Bld) [#/Vol] 0.2 10*3/uL Low 1.00-4.8 [facility] Comment on above: Performed By: #### S CAN CBC, CREAT #### [address] Lymphocytes/100 leukocytes i n Blood by Automated countOrdered By: Nabil Fox on 01-28-2024 Lymphocytes/100 WBC (Bld) 19.5 % Normal . [facility] Comment on above: Performed By: #### S CAN CBC, CREAT #### [address] MCH [Entitic mass] by Automa tejal countOrdered By: Nabil Fox on 01-28-2024 MCH (RBC) [Entitic mass] 32.1 pg Normal 27.5-35.2 [facility] Comment on above: Performed By: #### S CAN CBC, CREAT #### [address] MCHC Auto (RBC) [Mass/Vol]Or dered By: Nabil Fox on 01-28-2024 MCHC (RBC) [Mass/Vol] 34.1 g/dL 32.5-35.6 [facility] MCV [Entitic volume] by Auto mated countOrdered By: Nabil Fox on 01-28-2024 MCV (RBC) [Entitic vol] 94.0 fL Normal 83.5-101 [facility] Comment on above: Performed By: #### S CAN CBC, CREAT #### [address] Neutrophils [#/volume] in Bl ood by Automated countOrdered By: Nabil Fox on 01-28-2024 Neutrophils (Bld) [#/Vol] 0.8 10*3/uL Low 1.8-7.7 [facility] Comment on above: Performed By: #### S CAN CBC, CREAT #### [address] No Panel InformationOrdered By: Nabil Fox on 01-28-2024 Estimated GFR (CKD-EPI) > 60.0 mL/Min [facility] Creatinine Clearance (Chem 87.45 [facility] Nucleated erythrocytes [Pres ence] in Blood by Automated countOrdered By: Nabil Fox on 01-28-2024 Nucleated RBC Auto Ql (Bld) 0.1 /100{WBC} 0-0.5 [facility] Platelet adequacy [Presence] in Blood by Light microscopyOrdered By: Nabil Fox on 01-28-2024 Platelets LM Ql (Bld) Decreased Normal [facility] Platelet mean volume [Entiti c volume] in Blood by Automated countOrdered By: Nabil Fox on 01-28-2024 Platelet mean volume (Bld) [Entitic vol] 7.9 fL Normal 6.6-10.1 [facility] Comment on above: Performed By: #### S CAN CBC, CREAT #### [facility] [address] Platelet morphology finding [Identifier] in BloodOrdered By: Nabil Fox on 01-28-2024 Platelet morphology finding Nom (Bld) Normal Normal [facility] Platelets [#/volume] in Bloo d by Automated countOrdered By: Nabil Fox on 01-28-2024 Platelets (Bld) [#/Vol] 77 10*3/uL Low 150-450 [facility] Comment on above: Performed By: #### S CAN CBC, CREAT #### [facility] [address] Poikilocytosis [Presence] in Blood by Light microscopyOrdered By: Nabil Fox on 01-28-2024 Poikilocytosis LM Ql (Bld) Slight [facility] Poikilocytosis LM Ql (Bld) Poikilocytosis [Presence] in Blood by Light microscopy [facility] RBC morphologyOrdered By: Troy Fox on 01-28-2024 RBC morphology finding Nom (Bld) N/A [facility] Scan and CBCon 01-28-2024 Dohle Bodies Slight Normal [facility] Comment on above: Performed By: #### S CAN CBC, CREAT #### [address] Helmet Cells Slight Normal [facility] Comment on above: Performed By: #### S CAN CBC, CREAT #### [address] Mean Corpuscular HGB Conc 34.1 g/dL Normal 32.5-35.6 [facility] Comment on above: Performed By: #### S CAN CBC, CREAT #### [address] NRBC% 0.1 /100{WBC} Normal 0-0.5 [facility] Comment on above: Performed By: #### S CAN CBC, CREAT #### [address] Platelet Estimate Decreased Normal Normal [facility] Comment on above: Performed By: #### S CAN CBC, CREAT #### [address] Platelet Morphology Normal Normal Normal [facility] Comment on above: Result Comment: PERF ORMED BY: [place] [address] PATHOLOGIST WOOD MACHINIST TRISTON MELGAR M.D. Performed By: #### S CAN CBC, CREAT #### [address] Poikilocytosis Slight Normal [facility] Comment on above: Performed By: #### S CAN CBC, CREAT #### [address] Toxic Granulation Moderate Normal [facility] Comment on above: Performed By: #### S CAN CBC, CREAT #### [address] XR chest 2V*on 01-23-2024 XR chest 2V* [facility] [place] [address] [place] [address] XRay Report Signed Patient: Valente Lucio MR#: [id number] 36 : 1950 Acct:[id number] Age/Sex: 73 / M ADM Date: 01/23/24 Loc: XT [facility]: [facility] Att[facility] Dr: Nabil Fox II, DO Copies [...] Thomas Jr., DRaphaelORaphael01/23/2024 2:52 PM Dictation Location: [place] [address] Transcribed By: [facility] 01/23/24 1452 Dictated By: Yandel Thoams Jr, DO 01/23/24 1451 Signed By: 01/23/24 1452 Normal [facility] Alanine aminotransferase [En zymatic activity/volume] in Serum or PlasmaOrdered By: Nabil Fox on 01-21-2024 ALT [Catalytic activity/Vol] 10 U/L Normal 7-52 [facility] Comment on above: Order Comment: EDU AL Performed By: #### C MP, CBC #### [address] Albumin [Mass/volume] in Ser um or Plasma by Bromocresol green (BCG) dye binding methoOrdered By: Nabil Fox on 01-21-2024 Albumin BCG dye [Mass/Vol] 3.7 g/dL 3.5-5.7 [facility] Alkaline phosphatase [Enzyma tic activity/volume] in Serum or PlasmaOrdered By: Nabil Fox on 01-21-2024 ALP [Catalytic activity/Vol] 84 U/L Normal 34-104 [facility] Comment on above: Order Comment: FASTI NG. JKW Performed By: #### C MP, CBC #### [address] Aspartate aminotransferase [ Enzymatic activity/volume] in Serum or PlasmaOrdered By: Nabil Fox on 01-21-2024 AST [Catalytic activity/Vol] 15 U/L Normal 13-39 [facility] Comment on above: Order Comment: EDU CastanedaKW Performed By: #### C MP, CBC #### [address] Automated basophil %Ordered By: Nabil Fox on 01-21-2024 Basophils/100 WBC (Bld) 0.6 % Normal . [facility] Comment on above: Performed By: #### C MP, CBC #### [address] Automated basophil countOrde red By: Nabil Fox on 01-21-2024 Basophils (Bld) [#/Vol] 0.0 10*3/uL Normal 0.0-0.2 [facility] Comment on above: Result Comment: PERF ORMED BY: [place] [address] PATHOLOGIST WOOD MACHINIST TRISTON MELGAR M.D. Performed By: #### C MP, CBC #### [address] Automated blood monocyte cou ntOrdered By: Nabil Fox on 01-21-2024 Monocytes (Bld) [#/Vol] 0.3 10*3/uL Normal 0.0-0.8 [facility] Comment on above: Performed By: #### C MP, CBC #### [address] Automated eosinophil %Ordere d By: Nabil Fox on 01-21-2024 Eosinophils/100 WBC (Bld) 1.9 % Normal . [facility] Comment on above: Performed By: #### C MP, CBC #### [address] Automated eosinophil countOr dered By: Nabil Fox on 01-21-2024 Eosinophils (Bld) [#/Vol] 0.0 10*3/uL Normal 0.0-0.45 [facility] Comment on above: Performed By: #### C MP, CBC #### [facility] [address] Automated monocyte %Ordered By: Nabil Fox on 01-21-2024 Monocytes/100 WBC (Bld) 11.2 % Normal . [facility] Comment on above: Performed By: #### C MP, CBC #### [facility] [address] Automated neutrophil %Ordere d By: Nabil Fox on 01-21-2024 Neutrophils/100 WBC (Bld) 65.1 % Normal . [facility] Comment on above: Performed By: #### C MP, CBC #### [facility] [address] [place] [address] [place] Bilirubin.total [Mass/volume ] in Serum or PlasmaOrdered By: Nabil Fox on 01-21-2024 Bilirubin [Mass/Vol] 0.5 mg/dL Normal 0.3-1.0 [facility] Comment on above: Order Comment: FASTI ELADIO. JKW Performed By: #### C MP, CBC #### [address] Calcium [Mass/volume] in Ser um or PlasmaOrdered By: Nabil Fox on 01-21-2024 Calcium [Mass/Vol] 8.6 mg/dL Normal 8.6-10.3 [facility] Comment on above: Order Comment: FASTI NG. JKW Performed By: #### C MP, CBC #### [facility] [address] [place] [address] [place] Carbon dioxide, total [Moles /volume] in Serum or PlasmaOrdered By: Nabil Fox on 01-21-2024 CO2 [Moles/Vol] 28.7 mmol/L Normal 21.0-31.0 [facility] Comment on above: Order Comment: FASTI NG. JKW Performed By: #### C MP, CBC #### [address] Chloride [Moles/volume] in S neeru or PlasmaOrdered By: Nabil Fox on 01-21-2024 Chloride [Moles/Vol] 101 mmol/L Normal 98-107 [facility] Comment on above: Order Comment: FASTI NG. JKW Performed By: #### C MP, CBC #### [address] Complete Blood Count Auto Di ffon 01-21-2024 Mean Corpuscular HGB Conc 33.7 g/dL Normal 32.5-35.6 [facility] Comment on above: Performed By: #### C MP, CBC #### [address] NRBC% 0.1 /100{WBC} Normal 0-0.5 [facility] Comment on above: Performed By: #### C MP, CBC #### [address] Comprehensive Metabolic Pane nehemiah 01-21-2024 Albumin [Mass/Vol] 3.7 g/dL Normal 3.5-5.7 [facility] Comment on above: Order Comment: FASTI NG. JKW Performed By: #### C MP, CBC #### [address] Creatinine Clr Calc Pharmacy 94.74 Normal [facility] Comment on above: Order Comment: FASTI NG. JKW Result Comment: PERF ORMED BY: [place] [address] PATHOLOGIST WOOD MACHINIST TRISTON MELGAR M.D. Performed By: #### C MP, CBC #### [address] GFR/1.73 sq M.predicted MDRD (S/P/Bld) [Vol rate/Area] mL/min/{1.73_m2} Normal [facility] Comment on above: Order Comment: FASTI NG. JKW Performed By: #### C MP, CBC #### [address] Creatinine [Mass/volume] in Serum or PlasmaOrdered By: Nabil Fox on 01-21-2024 Creatinine [Mass/Vol] 0.66 mg/dL Low 0.70-1.30 [facility] Comment on above: Order Comment: FASTI NG. JKW Performed By: #### C MP, CBC #### [facility] [address] Erythrocyte distribution wid th [Ratio] by Automated countOrdered By: Nabil Fox on 01-21-2024 Erythrocyte distribution width (RBC) [Ratio] 14.3 % Normal 12.0-14.8 [facility] Comment on above: Performed By: #### C MP, CBC #### [address] Erythrocytes [#/volume] in B lood by Automated countOrdered By: Nabil Fox on 01-21-2024 RBC (Bld) [#/Vol] 4.08 10*6/uL Normal 3.90-5.60 [facility] Comment on above: Performed By: #### C MP, CBC #### [address] Glucose [Mass/volume] in Ser um or PlasmaOrdered By: Nabil Fox on 01-21-2024 Glucose [Mass/Vol] 103 mg/dL High 70-100 [facility] Comment on above: ADA recommended refe rence rangeRandom Glucose Reference Range is dependent on time and content of last meal. Glucose of more than 200 mg/dL in a nonstressed, ambulatory subject supports the diagnosis of Diabetes Mellitus. Order Comment: FASTI ELADIO. JKW Result Comment: [place] Glucose Reference Range is dependent on time and content of last meal. Glucose of more than 200 mg/dL in a nonstressed, ambulatory subject supports the diagnosis of Diabetes Mellitus. ADA recommended reference range Performed By: #### C MP, CBC #### [place] [id number] [place] Hematocrit [Volume Fraction] of Blood by Automated countOrdered By: Nabil Fox on 01-21-2024 Hematocrit (Bld) [Volume fraction] 38.1 % Low 38.8-50.0 [facility] Comment on above: Performed By: #### C MP, CBC #### [address] Hemoglobin [Mass/volume] in BloodOrdered By: Nabil Fox on 01-21-2024 Hemoglobin (Bld) [Mass/Vol] 12.9 g/dL Low 13.0-17.0 [facility] Comment on above: Performed By: #### C MP, CBC #### [address] Leukocytes [#/volume] correc tejal for nucleated erythrocytes in Blood by Automated counOrdered By: Nabil Fox on 01-21-2024 WBC corrected for nucl RBC Auto (Bld) [#/Vol] 2.5 10*3/uL Low 4.1-10.5 [facility] Leukocytes [#/volume] in Blo od by Automated countOrdered By: Nabil Fox on 01-21-2024 WBC (Bld) [#/Vol] 2.5 10*3/uL Low 4.1-10.5 [facility] Comment on above: Performed By: #### C MP, CBC #### [address] Lymphocytes [#/volume] in Bl ood by Automated countOrdered By: Nabil Fox on 01-21-2024 Lymphocytes (Bld) [#/Vol] 0.5 10*3/uL Low 1.00-4.8 [facility] Comment on above: Performed By: #### C MP, CBC #### [address] Lymphocytes/100 leukocytes i n Blood by Automated countOrdered By: Nabil Fox on 01-21-2024 Lymphocytes/100 WBC (Bld) 21.2 % Normal . [facility] Comment on above: Performed By: #### C MP, CBC #### [address] MCH [Entitic mass] by Automa tejal countOrdered By: Nabil Fox on 01-21-2024 MCH (RBC) [Entitic mass] 31.5 pg Normal 27.5-35.2 [facility] Comment on above: Performed By: #### C MP, CBC #### [address] MCHC Auto (RBC) [Mass/Vol]Or dered By: Nabil Fox on 01-21-2024 MCHC (RBC) [Mass/Vol] 33.7 g/dL 32.5-35.6 [facility] MCV [Entitic volume] by Auto mated countOrdered By: Nabil Fox on 01-21-2024 MCV (RBC) [Entitic vol] 93.4 fL Normal 83.5-101 [facility] Comment on above: Performed By: #### C MP, CBC #### [address] Neutrophils [#/volume] in Bl ood by Automated countOrdered By: Nabil Fox on 01-21-2024 Neutrophils (Bld) [#/Vol] 1.6 10*3/uL Low 1.8-7.7 [facility] Comment on above: Performed By: #### C MP, CBC #### [address] No Panel InformationOrdered By: Nabil Fox on 01-21-2024 Estimated GFR (CKD-EPI) > 60.0 mL/Min [facility] Creatinine Clearance (Chem 94.74 [facility] Nucleated erythrocytes [Pres ence] in Blood by Automated countOrdered By: Nabil Fox on 01-21-2024 Nucleated RBC Auto Ql (Bld) 0.1 /100{WBC} 0-0.5 [facility] Platelet mean volume [Entiti c volume] in Blood by Automated countOrdered By: Nabil Fox on 01-21-2024 Platelet mean volume (Bld) [Entitic vol] 8.1 fL Normal 6.6-10.1 [facility] Comment on above: Performed By: #### C MP, CBC #### [address] Platelets [#/volume] in Bloo d by Automated countOrdered By: Nabil Fox on 01-21-2024 Platelets (Bld) [#/Vol] 139 10*3/uL Low 150-450 [facility] Comment on above: Performed By: #### C MP, CBC #### [address] Potassium [Moles/volume] in Serum or PlasmaOrdered By: Nabil Fox on 01-21-2024 Potassium [Moles/Vol] 4.8 mmol/L Normal 3.5-5.1 [facility] Comment on above: Order Comment: FASTI NG. JKW Performed By: #### C MP, CBC #### [address] Protein [Mass/volume] in Ser um or PlasmaOrdered By: Nabil Fox on 01-21-2024 Protein [Mass/Vol] 6.0 g/dL Low 6.4-8.9 [facility] Comment on above: Order Comment: FASTI NG. JKW Performed By: #### C MP, CBC #### [address] Serum globulin measurement b y calculation (mass/volume)Ordered By: Nabil Fox on 01-21-2024 Globulin (S) [Mass/Vol] 2.3 g/dL Normal [facility] Comment on above: Order Comment: FASTI NG. JKW Performed By: #### C MP, CBC #### [address] Serum or plasma albumin/glob ulin mass ratioOrdered By: Nabil Fox on 01-21-2024 Albumin/Globulin [Mass ratio] 1.6 {ratio} Normal [facility] Comment on above: Order Comment: FASTI NG. JKW Performed By: #### C MP, CBC #### [address] Serum or plasma anion gap de terminationOrdered By: Nabil Fox on 01-21-2024 Anion gap [Moles/Vol] 11.1 mmol/L Normal 6.0-15.0 [facility] Comment on above: Order Comment: FASTI NG. JKW Performed By: #### C MP, CBC #### [address] Sodium [Moles/volume] in Ser um or PlasmaOrdered By: Nabil Fox on 01-21-2024 Sodium [Moles/Vol] 136 mmol/L Normal 136-145 [facility] Comment on above: Order Comment: FASTI NG. JKW Performed By: #### C MP, CBC #### [address] Urea nitrogen [Mass/volume] in Serum or PlasmaOrdered By: Nabil Fox on 01-21-2024 Urea nitrogen [Mass/Vol] 22 mg/dL Normal 7-25 [facility] Comment on above: Order Comment: FASTI NG. JKW Performed By: #### C MP, CBC #### [address] Automated basophil %Ordered By: Nabil Fox on 01-14-2024 Basophils/100 WBC (Bld) 0.6 % Normal . [facility] Comment on above: Performed By: #### C REAT, CBC #### [address] Automated basophil countOrde red By: Nabil Fox on 01-14-2024 Basophils (Bld) [#/Vol] 0.0 10*3/uL Normal 0.0-0.2 [facility] Comment on above: Result Comment: PERF ORMED BY: [place] [address] PATHOLOGIST WOOD MACHINIST TRISTON MELGAR M.D. Performed By: #### C REAT, CBC #### [address] Automated blood monocyte cou ntOrdered By: Nabil Fox on 01-14-2024 Monocytes (Bld) [#/Vol] 0.1 10*3/uL Normal 0.0-0.8 [facility] Comment on above: Performed By: #### C REAT, CBC #### [address] Automated eosinophil %Ordere d By: Nabil Fox on 01-14-2024 Eosinophils/100 WBC (Bld) 4.0 % Normal . [facility] Comment on above: Performed By: #### C REAT, CBC #### [address] Automated eosinophil countOr dered By: Nabil Fox on 01-14-2024 Eosinophils (Bld) [#/Vol] 0.1 10*3/uL Normal 0.0-0.45 [facility] Comment on above: Performed By: #### C REAT, CBC #### [address] Automated monocyte %Ordered By: Nabil Fox on 01-14-2024 Monocytes/100 WBC (Bld) 3.8 % Normal . [facility] Comment on above: Performed By: #### C REAT, CBC #### [address] Automated neutrophil %Ordere d By: Nabil Fox on 01-14-2024 Neutrophils/100 WBC (Bld) 68.5 % Normal . [facility] Comment on above: Performed By: #### C REAT, CBC #### [address] Complete Blood Count Auto Di ffon 01-14-2024 Mean Corpuscular HGB Conc 33.9 g/dL Normal 32.5-35.6 [facility] Comment on above: Performed By: #### C REAT, CBC #### [place] [id number] [place] NRBC% 0.2 /100{WBC} Normal 0-0.5 [facility] Comment on above: Performed By: #### C REAT, CBC #### [address] Creatinineon 01-14-2024 Creatinine Clr Calc Pharmacy 94.85 Normal [facility] Comment on above: Result Comment: PERF ORMED BY: [place] [address] PATHOLOGIST WOOD MACHINIST TRISTON MELGAR M.D. Performed By: #### C REAT, CBC #### [address] GFR/1.73 sq M.predicted MDRD (S/P/Bld) [Vol rate/Area] mL/min/{1.73_m2} Normal [facility] Comment on above: Performed By: #### C REAT, CBC #### [address] Creatinine [Mass/volume] in Serum or PlasmaOrdered By: Nabil Fox on 01-14-2024 Creatinine [Mass/Vol] 0.65 mg/dL Low 0.70-1.30 [facility] Comment on above: Performed By: #### C SAIDAAT, CBC #### [address] Erythrocyte distribution wid th [Ratio] by Automated countOrdered By: Nabil Fox on 01-14-2024 Erythrocyte distribution width (RBC) [Ratio] 14.0 % Normal 12.0-14.8 [facility] Comment on above: Performed By: #### C SAIDAAT, CBC #### [address] Erythrocytes [#/volume] in B lood by Automated countOrdered By: Nabil Fox on 01-14-2024 RBC (Bld) [#/Vol] 4.18 10*6/uL Normal 3.90-5.60 [facility] Comment on above: Performed By: #### C SAIDAAT, CBC #### [address] Hematocrit [Volume Fraction] of Blood by Automated countOrdered By: Nabil Fox on 01-14-2024 Hematocrit (Bld) [Volume fraction] 39.3 % Normal 38.8-50.0 [facility] Comment on above: Performed By: #### C REAT, CBC #### [address] Hemoglobin [Mass/volume] in BloodOrdered By: Nabil Fox on 01-14-2024 Hemoglobin (Bld) [Mass/Vol] 13.3 g/dL Normal 13.0-17.0 [facility] Comment on above: Performed By: #### C WEI, CBC #### [address] Leukocytes [#/volume] correc tejal for nucleated erythrocytes in Blood by Automated counOrdered By: Nabil Fox on 01-14-2024 WBC corrected for nucl RBC Auto (Bld) [#/Vol] 3.4 10*3/uL Low 4.1-10.5 [facility] Leukocytes [#/volume] in Blo od by Automated countOrdered By: Nabil Fox on 01-14-2024 WBC (Bld) [#/Vol] 3.4 10*3/uL Low 4.1-10.5 [facility] Comment on above: Performed By: #### C WEI, CBC #### [address] Lymphocytes [#/volume] in Bl ood by Automated countOrdered By: Nabil Fox on 01-14-2024 Lymphocytes (Bld) [#/Vol] 0.8 10*3/uL Low 1.00-4.8 [facility] Comment on above: Performed By: #### C REAT, CBC #### [address] Lymphocytes/100 leukocytes i n Blood by Automated countOrdered By: Nabil Fox on 01-14-2024 Lymphocytes/100 WBC (Bld) 23.1 % Normal . [facility] Comment on above: Performed By: #### C WEI, CBC #### [facility] [address] [place] [address] MCH [Entitic mass] by Automa tejal countOrdered By: Nabil Fox on 01-14-2024 MCH (RBC) [Entitic mass] 31.8 pg Normal 27.5-35.2 [facility] Comment on above: Performed By: #### C WEI, CBC #### [address] MCHC Auto (RBC) [Mass/Vol]Or dered By: Nabil Fox on 01-14-2024 MCHC (RBC) [Mass/Vol] 33.9 g/dL 32.5-35.6 [facility] MCV [Entitic volume] by Auto mated countOrdered By: Nabil Fox on 01-14-2024 MCV (RBC) [Entitic vol] 93.9 fL Normal 83.5-101 [facility] Comment on above: Performed By: #### C WEI, CBC #### [address] Neutrophils [#/volume] in Bl ood by Automated countOrdered By: Nabil Fox on 01-14-2024 Neutrophils (Bld) [#/Vol] 2.3 10*3/uL Normal 1.8-7.7 [facility] Comment on above: Performed By: #### C WEI, CBC #### [address] No Panel InformationOrdered By: Nabil Fox on 01-14-2024 Estimated GFR (CKD-EPI) > 60.0 mL/Min [facility] Creatinine Clearance (Chem 94.85 [facility] Nucleated erythrocytes [Pres ence] in Blood by Automated countOrdered By: Nabil Fox on 01-14-2024 Nucleated RBC Auto Ql (Bld) 0.2 /100{WBC} 0-0.5 [facility] Platelet mean volume [Entiti c volume] in Blood by Automated countOrdered By: Nabil Fox on 01-14-2024 Platelet mean volume (Bld) [Entitic vol] 8.6 fL Normal 6.6-10.1 [facility] Comment on above: Performed By: #### C REAT, CBC #### [address] Platelets [#/volume] in Bloo d by Automated countOrdered By: Nabil Fox on 01-14-2024 Platelets (Bld) [#/Vol] 174 10*3/uL Normal 150-450 [facility] Comment on above: Performed By: #### C REAT, CBC #### [address] Automated basophil %Ordered By: Nabil Fox on 01-07-2024 Basophils/100 WBC (Bld) 0.8 % Normal . [facility] Comment on above: Performed By: #### C REAT, CBC #### [address] Automated basophil countOrde red By: Nabil Fox on 01-07-2024 Basophils (Bld) [#/Vol] 0.0 10*3/uL Normal 0.0-0.2 [facility] Comment on above: Result Comment: PERF ORMED BY: [place] [address] PATHOLOGIST WOOD MACHINIST TRISTON MELGAR M.D. Performed By: #### C REAT, CBC #### [address] Automated blood monocyte cou ntOrdered By: Nabil Fox on 01-07-2024 Monocytes (Bld) [#/Vol] 0.2 10*3/uL Normal 0.0-0.8 [facility] Comment on above: Performed By: #### C REAT, CBC #### [address] Automated eosinophil %Ordere d By: Nabil Fox on 01-07-2024 Eosinophils/100 WBC (Bld) 5.1 % Normal . [facility] Comment on above: Performed By: #### C REAT, CBC #### [address] Automated eosinophil countOr dered By: Nabil Fox on 01-07-2024 Eosinophils (Bld) [#/Vol] 0.3 10*3/uL Normal 0.0-0.45 [facility] Comment on above: Performed By: #### C REAT, CBC #### [address] Automated monocyte %Ordered By: Nabil Fox on 01-07-2024 Monocytes/100 WBC (Bld) 2.7 % Normal . [facility] Comment on above: Performed By: #### C REAT, CBC #### [address] Automated neutrophil %Ordere d By: Nabil Fox on 01-07-2024 Neutrophils/100 WBC (Bld) 68.2 % Normal . [facility] Comment on above: Performed By: #### C REAT, CBC #### [address] Complete Blood Count Auto Di ffon 01-07-2024 Mean Corpuscular HGB Conc 34.0 g/dL Normal 32.5-35.6 [facility] Comment on above: Performed By: #### C REAT, CBC #### [address] NRBC% 0.1 /100{WBC} Normal 0-0.5 [facility] Comment on above: Performed By: #### C REAT, CBC #### [place] [address] [place] Creatinineon 01-07-2024 Creatinine Clr Calc Pharmacy 95.37 Normal [facility] Comment on above: Result Comment: PERF ORMED BY: [place] [address] PATHOLOGIST WOOD MACHINIST TRISTON MELGAR M.D. Performed By: #### C REAT, CBC #### [address] GFR/1.73 sq M.predicted MDRD (S/P/Bld) [Vol rate/Area] mL/min/{1.73_m2} Normal [facility] Comment on above: Performed By: #### C REAT, CBC #### [address] Creatinine [Mass/volume] in Serum or PlasmaOrdered By: Nabil Fox on 01-07-2024 Creatinine [Mass/Vol] 0.64 mg/dL Low 0.70-1.30 [facility] Comment on above: Performed By: #### C REAT, CBC #### [address] Erythrocyte distribution wid th [Ratio] by Automated countOrdered By: Nabil Fox on 01-07-2024 Erythrocyte distribution width (RBC) [Ratio] 14.5 % Normal 12.0-14.8 [facility] Comment on above: Performed By: #### C REAT, CBC #### [address] Erythrocytes [#/volume] in B lood by Automated countOrdered By: Nabil Fox on 01-07-2024 RBC (Bld) [#/Vol] 4.32 10*6/uL Normal 3.90-5.60 [facility] Comment on above: Performed By: #### C REAT, CBC #### [address] Hematocrit [Volume Fraction] of Blood by Automated countOrdered By: Nabil Fox on 01-07-2024 Hematocrit (Bld) [Volume fraction] 40.7 % Normal 38.8-50.0 [facility] Comment on above: Performed By: #### C REAT, CBC #### [address] Hemoglobin [Mass/volume] in BloodOrdered By: Nabil Fox on 01-07-2024 Hemoglobin (Bld) [Mass/Vol] 13.9 g/dL Normal 13.0-17.0 [facility] Comment on above: Performed By: #### C REAT, CBC #### [address] Leukocytes [#/volume] correc tejal for nucleated erythrocytes in Blood by Automated counOrdered By: Nabil Fox on 01-07-2024 WBC corrected for nucl RBC Auto (Bld) [#/Vol] 5.9 10*3/uL 4.1-10.5 [facility] Leukocytes [#/volume] in Blo od by Automated countOrdered By: Nabil Fox on 01-07-2024 WBC (Bld) [#/Vol] 5.9 10*3/uL Normal 4.1-10.5 [facility] Comment on above: Performed By: #### C RECLAY, CBC #### [address] Lymphocytes [#/volume] in Bl ood by Automated countOrdered By: Nabil Fox on 01-07-2024 Lymphocytes (Bld) [#/Vol] 1.4 10*3/uL Normal 1.00-4.8 [facility] Comment on above: Performed By: #### C RECLAY, CBC #### [address] Lymphocytes/100 leukocytes i n Blood by Automated countOrdered By: Nabil Fox on 01-07-2024 Lymphocytes/100 WBC (Bld) 23.2 % Normal . [facility] Comment on above: Performed By: #### C REAT, CBC #### [address] MCH [Entitic mass] by Automa tejal countOrdered By: Nabil Fox on 01-07-2024 MCH (RBC) [Entitic mass] 32.1 pg Normal 27.5-35.2 [facility] Comment on above: Performed By: #### C REAT, CBC #### [address] MCHC Auto (RBC) [Mass/Vol]Or dered By: Nabil Fox on 01-07-2024 MCHC (RBC) [Mass/Vol] 34.0 g/dL 32.5-35.6 [facility] MCV [Entitic volume] by Auto mated countOrdered By: Nabil Fox on 01-07-2024 MCV (RBC) [Entitic vol] 94.4 fL Normal 83.5-101 [facility] Comment on above: Performed By: #### C RECLAY, CBC #### [facility] [address] Neutrophils [#/volume] in Bl ood by Automated countOrdered By: Nabil Fox on 01-07-2024 Neutrophils (Bld) [#/Vol] 4.0 10*3/uL Normal 1.8-7.7 [facility] Comment on above: Performed By: #### C WEI, CBC #### [facility] [address] [place] [address] No Panel InformationOrdered By: Nabil Fox on 01-07-2024 Estimated GFR (CKD-EPI) > 60.0 mL/Min [facility] Creatinine Clearance (Chem 95.37 [facility] Nucleated erythrocytes [Pres ence] in Blood by Automated countOrdered By: Nabil Fox on 01-07-2024 Nucleated RBC Auto Ql (Bld) 0.1 /100{WBC} 0-0.5 [facility] Platelet mean volume [Entiti c volume] in Blood by Automated countOrdered By: Nabil Fox on 01-07-2024 Platelet mean volume (Bld) [Entitic vol] 8.7 fL Normal 6.6-10.1 [facility] Comment on above: Performed By: #### C REAT, CBC #### [facility] [address] Platelets [#/volume] in Bloo d by Automated countOrdered By: Nabil Fox on 01-07-2024 Platelets (Bld) [#/Vol] 206 10*3/uL Normal 150-450 [facility] Comment on above: Performed By: #### C REAT, CBC #### [facility] [address] Basophils Auto (Bld) [#/Vol] on 12-31-2023 Basophils (Bld) [#/Vol] 0.0 10 3/uL 0.0-0.1 [facility] Basophils/100 WBC Auto (Bld) on 12-31-2023 Basophils/100 WBC (Bld) 0.5 % 0.2-2.0 [facility] Eosinophils/100 WBC Auto (Bl d)on 12-31-2023 Eosinophils/100 WBC (Bld) 2.7 % 0.9-7.0 [facility] Erythrocyte distribution wid th Auto (RBC) [Ratio]on 12-31-2023 Erythrocyte distribution width (RBC) [Ratio] 14.1 % 11.0-15.0 [facility] Estimated glomerular filtrat ion rate (GFR) non- Americanon 12-31-2023 GFR/1.73 sq M.predicted among non-blacks MDRD (S/P/Bld) [Vol rate/Area] mL/min/{1.73_m2} >=60 [facility] Globulin Calc (S) [Mass/Vol] on 12-31-2023 Globulin (S) [Mass/Vol] 3.8 g/dL [facility] Hematocrit Auto (Bld) [Volum e fraction]on 12-31-2023 Hematocrit (Bld) [Volume fraction] 43.8 % 42.0-54.0 [facility] Hemoglobin [Mass/volume] in Bloodon 12-31-2023 Hemoglobin (Bld) [Mass/Vol] 14.4 g/dL 14.0-18.0 [facility] Laboratory - Chemistry and C hemistry - challengeon 12-31-2023 Albumin [Mass/Vol] 3.3 g/dL Low 3.4-5.0 [facility] ALP [Catalytic activity/Vol] 139 U/L High 46-116 [facility] ALT [Catalytic activity/Vol] 24 U/L 16-63 [facility] AST [Catalytic activity/Vol] 26 U/L 15-37 [facility] Bilirubin [Mass/Vol] 0.5 mg/dL 0.2-1.0 [facility] Calcium [Mass/Vol] 8.8 mg/dL 8.5-10.1 [facility] Chloride [Moles/Vol] 106 mmol/L 98-107 [facility] CO2 [Moles/Vol] 26.3 mmol/L 21.0-32.0 [facility] Creatinine [Mass/Vol] 0.75 mg/dL 0.70-1.30 [facility] GFR/1.73 sq M.predicted MDRD (S/P/Bld) [Vol rate/Area] mL/min/{1.73_m2} >=60 [facility] Glucose [Mass/Vol] 105 mg/dL 74-106 [facility] Potassium [Moles/Vol] 3.8 mmol/L 3.5-5.1 [facility] Protein [Mass/Vol] 7.1 g/dL 6.4-8.2 [facility] Sodium [Moles/Vol] 139 mmol/L 136-145 [facility] Urea nitrogen [Mass/Vol] 15.0 mg/dL 7.0-18.0 [facility] Urea nitrogen/Creatinine [Mass ratio] 20.0 mg/mg [facility] Laboratory - Hematology and Cell countson 12-31-2023 Immature granulocytes/100 WBC (Bld) 0.3 % 0.0-0.5 [facility] Leukocytes [#/volume] correc tejal for nucleated erythrocytes in Blood by Automated counon 12-31-2023 WBC corrected for nucl RBC Auto (Bld) [#/Vol] 7.8 10 3/uL 4.0-11.0 [facility] Lymphocytes Auto (Bld) [#/Vo l]on 12-31-2023 Lymphocytes (Bld) [#/Vol] 1.9 10 3/uL 1.2-3.8 [facility] Lymphocytes/100 WBC Auto (Bl d)on 12-31-2023 Lymphocytes/100 WBC (Bld) 24.6 % 20.5-60.0 [facility] MCH Auto (RBC) [Entitic mass ]on 12-31-2023 MCH (RBC) [Entitic mass] 31.4 pg 25.9-34.0 [facility] MCHC Auto (RBC) [Mass/Vol]on 12-31-2023 MCHC (RBC) [Mass/Vol] 32.9 g/dL 29.9-35.2 [facility] MCV Auto (RBC) [Entitic vol] on 12-31-2023 MCV (RBC) [Entitic vol] 95.4 fL High 80.0-94.0 [facility] Monocytes Auto (Bld) [#/Vol] on 12-31-2023 Monocytes (Bld) [#/Vol] 0.6 10 3/uL 0.3-0.8 [facility] Monocytes/100 WBC Auto (Bld) on 12-31-2023 Monocytes/100 WBC (Bld) 7.6 % 1.7-12.0 [facility] Neutrophils Auto (Bld) [#/Vo l]on 12-31-2023 Neutrophils (Bld) [#/Vol] 5.0 10 3/uL 1.4-6.5 [facility] Neutrophils/100 WBC Auto (Bl d)on 12-31-2023 Neutrophils/100 WBC (Bld) 64.3 % 43.0-75.0 [facility] No Panel Informationon 12-30 Eosinophils # (Auto) 0.2 10 3/uL 0.0-0.7 [facility] Immature Granulocyte # (Auto) 0.02 10 3/uL 0.00-0.03 [facility] Platelet mean volume Auto (B ld) [Entitic vol]on 12-31-2023 Platelet mean volume (Bld) [Entitic vol] 9.7 fL 9.5-13.5 [facility] Platelets Auto (Bld) [#/Vol] on 12-31-2023 Platelets (Bld) [#/Vol] 263 10 3/uL 150-450 [facility] RBC Auto (Bld) [#/Vol]on RBC (Bld) [#/Vol] 4.59 10 6/uL Low 4.70-6.10 [facility] Serum or plasma albumin/glob ulin mass ratioon 12-31-2023 Albumin/Globulin [Mass ratio] 0.9 {ratio} [facility] Serum or plasma anion gap de terminationon 12-31-2023 Anion gap [Moles/Vol] 10.5 mmol/L [facility] Glucose Glucometer (BldC) [M ass/Vol]Ordered By: Jaswant Zaidi on 12-08-2023 Glucose [Mass/Vol] 80 mg/dL [facility] Comment on above: Random Glucose Refer ence Range is dependent on time and content of last meal. Glucose of more than 200 mg/dL in a nonstressed, ambulatory subject supports the diagnosis of Diabetes Mellitus. Basophils Auto (Bld) [#/Vol] Ordered By: Jaswant Zaidi on 12-02-2023 Basophils (Bld) [#/Vol] 0.1 10*3/uL 0.0-0.2 [facility] Basophils/100 WBC Auto (Bld) Ordered By: Jaswant Zaidi on 12-02-2023 Basophils/100 WBC (Bld) 0.6 % . [facility] Calcium [Mass/volume] in Ser um or PlasmaOrdered By: Jaswant Zaidi on 12-02-2023 Calcium [Mass/Vol] 8.8 mg/dL 8.6-10.3 [facility] Carbon dioxide, total [Moles /volume] in Serum or PlasmaOrdered By: Jaswant Zaidi on 12-02-2023 CO2 [Moles/Vol] 28.3 mmol/L 21.0-31.0 [facility] Chloride [Moles/volume] in S neeru or PlasmaOrdered By: Jaswant Zaidi on 12-02-2023 Chloride [Moles/Vol] 103 mmol/L 98-107 [facility] Creatinine [Mass/volume] in Serum or PlasmaOrdered By: Jaswant Zaidi on 12-02-2023 Creatinine [Mass/Vol] 0.90 mg/dL 0.70-1.30 [facility] Eosinophils Auto (Bld) [#/Vo l]Ordered By: Jaswant Zaidi on 12-02-2023 Eosinophils (Bld) [#/Vol] 0.2 10*3/uL 0.0-0.45 [facility] Eosinophils/100 WBC Auto (Bl d)Ordered By: Jaswant Zaidi on 12-02-2023 Eosinophils/100 WBC (Bld) 1.9 % . [facility] Erythrocyte distribution wid th Auto (RBC) [Ratio]Ordered By: Jaswant Zaidi on 12-02-2023 Erythrocyte distribution width (RBC) [Ratio] 13.9 % 12.0-14.8 [facility] Glucose [Mass/volume] in Ser um or PlasmaOrdered By: Jaswant Zaidi on 12-02-2023 Glucose [Mass/Vol] 81 mg/dL 70-100 [facility] Comment on above: ADA recommended refe rence rangeRandom Glucose Reference Range is dependent on time and content of last meal. Glucose of more than 200 mg/dL in a nonstressed, ambulatory subject supports the diagnosis of Diabetes Mellitus. Hematocrit Auto (Bld) [Volum e fraction]Ordered By: Jaswant Zaidi on 12-02-2023 Hematocrit (Bld) [Volume fraction] 42.2 % 38.8-50.0 [facility] Hemoglobin [Mass/volume] in BloodOrdered By: Jaswant Zaidi on 12-02-2023 Hemoglobin (Bld) [Mass/Vol] 14.1 g/dL 13.0-17.0 [facility] Leukocytes [#/volume] correc tejal for nucleated erythrocytes in Blood by Automated counOrdered By: Jaswant Zaidi on 12-02-2023 WBC corrected for nucl RBC Auto (Bld) [#/Vol] 9.3 10*3/uL 4.1-10.5 [facility] Lymphocytes Auto (Bld) [#/Vo l]Ordered By: Jaswant Zaidi on 12-02-2023 Lymphocytes (Bld) [#/Vol] 1.8 10*3/uL 1.00-4.8 [facility] Lymphocytes/100 WBC Auto (Bl d)Ordered By: Jaswant Zaidi on 12-02-2023 Lymphocytes/100 WBC (Bld) 19.5 % . [facility] MCH Auto (RBC) [Entitic mass ]Ordered By: Jaswant Zaidi on 12-02-2023 MCH (RBC) [Entitic mass] 31.6 pg 27.5-35.2 [facility] MCHC Auto (RBC) [Mass/Vol]Or dered By: Jaswant Zaidi on 12-02-2023 MCHC (RBC) [Mass/Vol] 33.4 g/dL 32.5-35.6 [facility] MCV Auto (RBC) [Entitic vol] Ordered By: Jaswant Zaidi on 12-02-2023 MCV (RBC) [Entitic vol] 94.7 fL 83.5-101 [facility] Monocytes Auto (Bld) [#/Vol] Ordered By: Jaswant Zaidi on 12-02-2023 Monocytes (Bld) [#/Vol] 0.7 10*3/uL 0.0-0.8 [facility] Monocytes/100 WBC Auto (Bld) Ordered By: Jaswant Zaidi on 12-02-2023 Monocytes/100 WBC (Bld) 7.1 % . [facility] Neutrophils Auto (Bld) [#/Vo l]Ordered By: Jaswant Zaidi on 12-02-2023 Neutrophils (Bld) [#/Vol] 6.6 10*3/uL 1.8-7.7 [facility] Neutrophils/100 WBC Auto (Bl d)Ordered By: Jaswant Zaidi on 12-02-2023 Neutrophils/100 WBC (Bld) 70.9 % . [facility] No Panel InformationOrdered By: Jaswant Zaidi on 12-02-2023 Estimated GFR (CKD-EPI) > 60.0 mL/Min [facility] Pharmacy Creatinine Clearance (Chem N/A [facility] Nucleated erythrocytes [Pres ence] in Blood by Automated countOrdered By: Jaswant Zaidi on 12-02-2023 Nucleated RBC Auto Ql (Bld) 0.0 /100{WBC} 0-0.5 [facility] Platelet mean volume Auto (B ld) [Entitic vol]Ordered By: Jaswant Zaidi on 12-02-2023 Platelet mean volume (Bld) [Entitic vol] 8.4 fL 6.6-10.1 [facility] Platelets Auto (Bld) [#/Vol] Ordered By: Jaswant Zaidi on 12-02-2023 Platelets (Bld) [#/Vol] 240 10*3/uL 150-450 [facility] Potassium [Moles/volume] in Serum or PlasmaOrdered By: Jaswant Zaidi on 12-02-2023 Potassium [Moles/Vol] 4.5 mmol/L 3.5-5.1 [facility] RBC Auto (Bld) [#/Vol]Ordere d By: Jaswant Zaidi on 12-02-2023 RBC (Bld) [#/Vol] 4.45 10*6/uL 3.90-5.60 [facility] Serum or plasma anion gap de terminationOrdered By: Jaswant Zaidi on 12-02-2023 Anion gap [Moles/Vol] 10.2 mmol/L 6.0-15.0 [facility] Sodium [Moles/volume] in Ser um or PlasmaOrdered By: Jaswant Zaidi on 12-02-2023 Sodium [Moles/Vol] 137 mmol/L 136-145 [facility] Urea nitrogen [Mass/volume] in Serum or PlasmaOrdered By: Jaswant Zaidi on 12-02-2023 Urea nitrogen [Mass/Vol] 11 mg/dL 7-25 [facility] WBC Auto (Bld) [#/Vol]Ordere d By: Jaswant Zaidi on 12-02-2023 WBC (Bld) [#/Vol] 9.3 10*3/uL 4.1-10.5 [facility] Amphetamine Screen Ql (U)Ord ered By: Vinicio Tamez on 11-28-2023 Amphetamines Ql (U) Negative Negative [facility] Barbiturates [Presence] in U rine by Screen methodOrdered By: Vinicio Tamez on 11-28-2023 Barbiturates Screen Ql (U) Negative Negative [facility] Benzodiazepines Screen Ql (U )Ordered By: Vinicio Tamez on 11-28-2023 Benzodiazepines Ql (U) Negative Negative [facility] Benzoylecgonine [Presence] i n Urine by Screen methodOrdered By: Vinicio Tamez on 11-28-2023 Benzoylecgonine Screen Ql (U) Negative Negative [facility] Cannabinoids [Presence] in U rine by Screen methodOrdered By: Vinicio Tamez on 11-28-2023 Cannabinoids Screen Ql (U) Positive High Negative [facility] Comment on above: These are unconfirme d results and should not be used for legal purposes. Drug Cut-Off Concentration: AMPH 1000 ng/mL JASEN 200 ng/mL FRANCOIS 200 ng/mL COCM 300 ng/mL OP 300 ng/mL PCP 25 ng/mL THC 20 ng/mL Opiates [Presence] in Urine by Screen methodOrdered By: Vinicio Tamez on 11-28-2023 Opiates Screen Ql (U) Negative Negative [facility] Phencyclidine Screen Ql (U)O rdered By: Vinicio Tamez on 11-28-2023 Phencyclidine Ql (U) Negative Negative [facility] IRON AND TIBCon 2023 TBH IRON 76.0 ug/dL 65.0 - 175.0 ug/dL [facility] TBH PERCENT IRON SATURATION 28.9 % [facility] TB TOTAL IRON BINDING CAPACITY 263.0 ug/dL 250.0 - 450.0 ug/dL [facility] Vital Signs Date Time Vital Sign Value Performing Clinician Facility 03-08-2025 10:30-0400 Body height 177.8 cm Jaswant Zaidi DO Work Phone: [facility] 03-08-2025 10:30-0400 Body mass index (BMI) [Ratio] 19.37 kg/m2 Jaswant Zaidi DO Work Phone: [facility] 03-08-2025 10:30-0400 Body weight 61.24 kg Jaswant Zaidi DO Work Phone: [facility] 02-28-2025 09:55-0400 Body mass index (BMI) [Ratio] 19.37 kg/m2 Hali Rolle MD Work Phone: [facility] 02-28-2025 09:55-0400 Body weight 61.24 kg Hali Rolle MD Work Phone: [facility] 02-28-2025 09:55-0400 Diastolic blood pressure 62 mm[Hg] Hali Rolle MD Work Phone: [facility] 02-28-2025 09:55-0400 Systolic blood pressure 100 mm[Hg] Hali Rolle MD Work Phone: [facility] 12-14-2024 09:59-0400 Body height 177.8 cm Jaswant Willk DO Work Phone: [facility] 12-14-2024 09:59-0400 Body mass index (BMI) [Ratio] 19.23 kg/m2 Jaswant Murcek DO Work Phone: [facility] 12-14-2024 09:59-0400 Body weight 60.78 kg Jaswant Portercek DO Work Phone: [facility] 11-29-2024 09:11-0400 Body height 175.3 cm Bryan Juarez CHILDREN'S COUNSELOR Work Phone: [facility] 11-29-2024 09:11-0400 Body mass index (BMI) [Ratio] 19.88 kg/m2 Bryan Miladygel CHILDREN'S COUNSELOR Work Phone: [facility] 11-29-2024 09:11-0400 Body weight 61.05 kg Bryan Miladygel CHILDREN'S COUNSELOR Work Phone: [facility] 11-29-2024 09:11-0400 Diastolic blood pressure 70 mm[Hg] Bryan Rockynagel CHILDREN'S COUNSELOR Work Phone: [facility] 11-29-2024 09:11-0400 Systolic blood pressure 130 mm[Hg] Bryan Miladygel CHILDREN'S COUNSELOR Work Phone: [facility] 11-02-2024 13:32-0400 Body height 175.26 cm Perlita Liu APRN Work Phone: [facility] 11-02-2024 13:32-0400 Body mass index (BMI) [Ratio] 20.9 kg/m2 Perlita Liu APRN Work Phone: [facility] 11-02-2024 13:32-0400 Body temperature 98.7 [degF] Perlita Liu APRN Work Phone: [facility] 11-02-2024 13:32-0400 Body weight 64.46 kg Perlita Liu APRN Work Phone: [facility] 11-02-2024 13:32-0400 Diastolic blood pressure 60 mm[Hg] Perlita Liu APRN Work Phone: [facility] 11-02-2024 13:32-0400 Heart rate 71 /min Perlita Liu APRN Work Phone: [facility] 11-02-2024 13:32-0400 SaO2% (BldA) [Mass fraction] 95 % Perlita Liu APRN Work Phone: [facility] 11-02-2024 13:32-0400 Systolic blood pressure 102 mm[Hg] Perlita Loweryjohn CLINICAL CYTOGENETICS DIRECTOR Work Phone: [facility] 11-02-2024 09:53-0400 Body height 177.8 cm Jaswant Zaidi DO Work Phone: [facility] 11-02-2024 09:53-0400 Body mass index (BMI) [Ratio] 22.96 kg/m2 Jaswant Zaidi DO Work Phone: [facility] 11-02-2024 09:53-0400 Body weight 72.58 kg Jaswant Zaidi DO Work Phone: [facility] 10-11-2024 11:28-0400 Body height 175.26 cm Perlita Loweryjohn CLINICAL CYTOGENETICS DIRECTOR Work Phone: [facility] 10-11-2024 11:28-0400 Body mass index (BMI) [Ratio] 21.4 kg/m2 Perlita Loweryjohn CLINICAL CYTOGENETICS DIRECTOR Work Phone: [facility] 10-11-2024 11:28-0400 Body weight 65.7 kg Perlita Liu CLINICAL CYTOGENETICS DIRECTOR Work Phone: [facility] 09-21-2024 09:35-0400 Body height 177.8 cm Jaswant Zaidi DO Work Phone: [facility] 09-21-2024 09:35-0400 Body mass index (BMI) [Ratio] 22.96 kg/m2 Jaswant Zaidi DO Work Phone: [facility] 09-21-2024 09:35-0400 Body weight 72.58 kg Jaswant Zaidi DO Work Phone: [facility] 09-08-2024 10:56-0400 Diastolic blood pressure 66 mm[Hg] Perlita Liu CLINICAL CYTOGENETICS DIRECTOR Work Phone: [facility] 09-08-2024 10:56-0400 Heart rate 66 /min Perlita Liu APRN Work Phone: [facility] 09-08-2024 10:56-0400 Respiratory rate 14 /min Perlita Liu CLINICAL CYTOGENETICS DIRECTOR Work Phone: [facility] 09-08-2024 10:56-0400 SaO2% (BldA) [Mass fraction] 95 % Perlitamelania Liu CLINICAL CYTOGENETICS DIRECTOR Work Phone: [facility] 09-08-2024 10:56-0400 Systolic blood pressure 109 mm[Hg] Perlita Liu APRN Work Phone: [facility] 09-08-2024 10:00-0400 Inhaled oxygen flow rate 0 L/min Perlita Liu CLINICAL CYTOGENETICS DIRECTOR Work Phone: [facility] 09-08-2024 09:50-0400 Body temperature 97.6 [degF] Perlita Liu CLINICAL CYTOGENETICS DIRECTOR Work Phone: [facility] 09-08-2024 08:03-0400 Body height 175.26 cm Perlita Liu APRN Work Phone: [facility] 09-08-2024 08:03-0400 Body weight 68 kg Perlita Liu CLINICAL CYTOGENETICS DIRECTOR Work Phone: [facility] 08-10-2024 10:38-0500 Body height 177.8 cm Jaswant Zaidi DO Work Phone: [facility] 08-10-2024 10:38-0500 Body mass index (BMI) [Ratio] 22.96 kg/m2 Jaswant Zaidi DO Work Phone: [facility] 08-10-2024 10:38-0500 Body weight 72.58 kg Jaswant Zaidi DO Work Phone: [facility] 07-30-2024 09:56-0500 Body height 175.26 cm Perlita Liu CLINICAL CYTOGENETICS DIRECTOR Work Phone: [facility] 07-30-2024 09:56-0500 Body mass index (BMI) [Ratio] 23.5 kg/m2 Perlita Liu APRN Work Phone: [facility] 07-30-2024 09:56-0500 Body temperature 97.4 [degF] Perlita Liu CLINICAL CYTOGENETICS DIRECTOR Work Phone: [facility] 07-30-2024 09:56-0500 Body weight 72.17 kg Perlita Liu CLINICAL CYTOGENETICS DIRECTOR Work Phone: [facility] 07-30-2024 09:56-0500 Diastolic blood pressure 78 mm[Hg] Perlita Liu CLINICAL CYTOGENETICS DIRECTOR Work Phone: [facility] 07-30-2024 09:56-0500 Heart rate 72 /min ePrlita Liu APRN Work Phone: [facility] 07-30-2024 09:56-0500 SaO2% (BldA) [Mass fraction] 97 % Perlita Liu APRN Work Phone: [facility] 07-30-2024 09:56-0500 Systolic blood pressure 146 mm[Hg] Perlita Liu CLINICAL CYTOGENETICS DIRECTOR Work Phone: [facility] 07-15-2024 13:05-0500 Body height 175.26 cm Perlita Liu CLINICAL CYTOGENETICS DIRECTOR Work Phone: [facility] 07-15-2024 13:05-0500 Body mass index (BMI) [Ratio] 23.8 kg/m2 Perlita Liu CLINICAL CYTOGENETICS DIRECTOR Work Phone: [facility] 07-15-2024 13:05-0500 Body weight 73.02 kg Perlita Liu CLINICAL CYTOGENETICS DIRECTOR Work Phone: [facility] 07-15-2024 13:05-0500 Diastolic blood pressure 62 mm[Hg] Perlita Liu CLINICAL CYTOGENETICS DIRECTOR Work Phone: [facility] 07-15-2024 13:05-0500 Heart rate 67 /min Perlita Liu APRN Work Phone: [facility] 07-15-2024 13:05-0500 Systolic blood pressure 121 mm[Hg] Perlita Liu APRN Work Phone: [facility] 06-29-2024 10:50-0500 Body height 177.8 cm Jaswant Zaidi DO Work Phone: [facility] 06-29-2024 10:50-0500 Body mass index (BMI) [Ratio] 22.96 kg/m2 Jaswant Portercek DO Work Phone: [facility] 06-29-2024 10:50-0500 Body weight 72.58 kg Jaswant Willk DO Work Phone: [facility] 06-03-2024 09:21-0500 Body height 177.8 cm Shanelle Itdavidkokevin DO Work Phone: [facility] 06-03-2024 09:21-0500 Body mass index (BMI) [Ratio] 23.17 kg/m2 Shanelle Itzkowitz DO Work Phone: [facility] 06-03-2024 09:21-0500 Body weight 73.26 kg Shanelle Itzkowitz DO Work Phone: [facility] 05-11-2024 10:30-0500 Body height 177.8 cm Jaswant Murcek DO Work Phone: [facility] 05-11-2024 10:30-0500 Body mass index (BMI) [Ratio] 26.54 kg/m2 Jaswant Murcek DO Work Phone: [facility] 05-11-2024 10:30-0500 Body weight 83.92 kg Jaswant Murcek DO Work Phone: [facility] 04-12-2024 11:33-0400 Body weight 80.73 kg Perlita Liu CLINICAL CYTOGENETICS DIRECTOR Work Phone: [facility] 03-30-2024 10:02-0400 Body height 177.8 cm Jaswant Murcek DO Work Phone: [facility] 03-30-2024 10:02-0400 Body mass index (BMI) [Ratio] 26.54 kg/m2 Jaswant Murcek DO Work Phone: [facility] 03-30-2024 10:02-0400 Body weight 83.92 kg Jaswant Murcek DO Work Phone: [facility] 03-29-2024 12:55-0400 Body weight 82.55 kg MARY LOU Liu Work Phone: [facility] 03-04-2024 10:02-0400 Body height 177.8 cm MARY LOU Liu Work Phone: [facility] 03-04-2024 10:02-0400 Body mass index (BMI) [Ratio] 26 kg/m2 MARY LOU Liu Work Phone: [facility] 03-04-2024 10:02-0400 Body weight 82.27 kg MARY LOU Jimenezrbacher Work Phone: [facility] 03-04-2024 10:02-0400 Diastolic blood pressure 80 mm[Hg] CLINICAL CYTOGENETICS DIRECTORSriram Jimenezrbacher Work Phone: [facility] 03-04-2024 10:02-0400 Heart rate 95 /min CLINICAL CYTOGENETICS DIRECTORSriram Jimenezrbacher Work Phone: [facility] 03-04-2024 10:02-0400 Respiratory rate 18 /min CLINICAL CYTOGENETICS DIRECTORSriram Jimenezrbacher Work Phone: [facility] 03-04-2024 10:02-0400 SaO2% (BldA) [Mass fraction] 97 % CLINICAL CYTOGENETICS DIRECTORSriram Jimenezrbacher Work Phone: [facility] 03-04-2024 10:02-0400 Systolic blood pressure 138 mm[Hg] CLINICAL CYTOGENETICS DIRECTORSriram Jimenezrbacher Work Phone: [facility] 02-27-2024 13:25-0400 Body temperature 98 [degF] CLINICAL CYTOGENETICS DIRECTORSriram Jimenezrbacher Work Phone: [facility] 02-27-2024 13:25-0400 Diastolic blood pressure 75 mm[Hg] CLINICAL CYTOGENETICS DIRECTORSriram Jimenezrbacher Work Phone: [facility] 02-27-2024 13:25-0400 Heart rate 87 /min CLINICAL CYTOGENETICS DIRECTORSriram Jimenezrbacher Work Phone: [facility] 02-27-2024 13:25-0400 Respiratory rate 20 /min CLINICAL CYTOGENETICS DIRECTORSriram Jimenezrbacher Work Phone: [facility] 02-27-2024 13:25-0400 SaO2% (BldA) [Mass fraction] 100 % CLINICAL CYTOGENETICS DIRECTORSriram Jimenezrbacher Work Phone: [facility] 02-27-2024 13:25-0400 Systolic blood pressure 125 mm[Hg] CLINICAL CYTOGENETICS DIRECTORSriram Jimenezrbacher Work Phone: [facility] 02-26-2024 08:06-0400 Body height 177.8 cm CLINICAL CYTOGENETICS DIRECTORSriram Higginsacher Work Phone: [facility] 02-24-2024 10:41-0400 Body height 177.8 cm Jaswant Zaidi DO Work Phone: [facility] 02-24-2024 10:41-0400 Body mass index (BMI) [Ratio] 26.54 kg/m2 Jaswant Zaidi DO Work Phone: [facility] 02-24-2024 10:41-0400 Body weight 83.92 kg Jaswant Zaidi DO Work Phone: [facility] 02-19-2024 16:03-0400 Body height 177.8 cm CLINICAL CYTOGENETICS DIRECTORSriram Higginsacher Work Phone: [facility] 02-19-2024 10:23-0400 Body temperature 97.9 [degF] CLINICAL CYTOGENETICS DIRECTORSriram Higginsacher Work Phone: [facility] 02-19-2024 10:23-0400 Body weight 82.1 kg CLINICAL CYTOGENETICS DIRECTORSriram Higginsacher Work Phone: [facility] 02-19-2024 10:23-0400 Diastolic blood pressure 76 mm[Hg] CLINICAL CYTOGENETICS DIRECTORSriram Higginsacher Work Phone: [facility] 02-19-2024 10:23-0400 Heart rate 88 /min CLINICAL CYTOGENETICS DIRECTORSriram Higginsacher Work Phone: [facility] 02-19-2024 10:23-0400 Respiratory rate 18 /min CLINICAL CYTOGENETICS DIRECTORSriram Higginsacher Work Phone: [facility] 02-19-2024 10:23-0400 SaO2% (BldA) [Mass fraction] 95 % CLINICAL CYTOGENETICS DIRECTORSriram Higginsacher Work Phone: [facility] 02-19-2024 10:23-0400 Systolic blood pressure 121 mm[Hg] MARY LOU Desaifer Barbararbacher Work Phone: [facility] [facility] 02-18-2024 14:02-0400 Body temperature 98 [degF] CLINICAL CYTOGENETICS DIRECTORSriram BishopPerlita Barbararbacher Work Phone: [facility] 02-18-2024 14:02-0400 Body weight 82.1 kg CLINICAL CYTOGENETICS DIRECTORSriram DesaiPerlita Barbararbacher Work Phone: [facility] 02-18-2024 14:02-0400 Diastolic blood pressure 77 mm[Hg] CLINICAL CYTOGENETICS DIRECTORSriram Jimenezrbacher Work Phone: [facility] 02-18-2024 14:02-0400 Heart rate 78 /min MARY LOU Jimenezrbacher Work Phone: [facility] 02-18-2024 14:02-0400 Respiratory rate 20 /min CLINICAL CYTOGENETICS DIRECTORSriram Jimenezrbacher Work Phone: [facility] 02-18-2024 14:02-0400 SaO2% (BldA) [Mass fraction] 98 % CLINICAL CYTOGENETICS DIRECTORSriram Jimenezrbacher Work Phone: [facility] 02-18-2024 14:02-0400 Systolic blood pressure 128 mm[Hg] MARY LOU Jimenezrbacher Work Phone: [facility] 02-09-2024 13:58-0400 Body temperature 97.7 [degF] MARY LOU Jmienezrbacher Work Phone: [facility] 02-09-2024 13:58-0400 Body weight 79.83 kg CLINICAL CYTOGENETICS DIRECTORSriram Jimenezrbacher Work Phone: [facility] 02-09-2024 13:58-0400 Diastolic blood pressure 87 mm[Hg] MARY LOU Jimenezrbacher Work Phone: [facility] 02-09-2024 13:58-0400 Heart rate 75 /min MARY LOU Bhat Barbararbacher Work Phone: [facility] 02-09-2024 13:58-0400 Respiratory rate 20 /min CLINICAL CYTOGENETICS DIRECTOR Perlita Barbararbacher Work Phone: [facility] 02-09-2024 13:58-0400 SaO2% (BldA) [Mass fraction] 95 % CLINICAL CYTOGENETICS DIRECTOR Perlita Barbararbacher Work Phone: [facility] 02-09-2024 13:58-0400 Systolic blood pressure 125 mm[Hg] CLINICAL CYTOGENETICS DIRECTORSriram BishopPerlita Barbararbacher Work Phone: [facility] 02-03-2024 12:30-0400 Diastolic blood pressure 79 mm[Hg] CLINICAL CYTOGENETICS DIRECTORSriram BishopPerlita Barbararbacher Work Phone: [facility] 02-03-2024 12:30-0400 Heart rate 87 /min CLINICAL CYTOGENETICS DIRECTORSriram BishopPerlita Barbararbacher Work Phone: [facility] 02-03-2024 12:30-0400 Respiratory rate 20 /min CLINICAL CYTOGENETICS DIRECTOR Perlita Barbararbacher Work Phone: [facility] 02-03-2024 12:30-0400 SaO2% (BldA) [Mass fraction] 94 % CLINICAL CYTOGENETICS DIRECTOR Perlita Barbararbacher Work Phone: [facility] 02-03-2024 12:30-0400 Systolic blood pressure 140 mm[Hg] CLINICAL CYTOGENETICS DIRECTORSriram Jimenezrbacher Work Phone: [facility] 02-03-2024 12:01-0400 Inhaled oxygen flow rate 8 L/min CLINICAL CYTOGENETICS DIRECTORSriram DesaiPerlita Barbararbacher Work Phone: [facility] 02-03-2024 10:49-0400 Body height 177.8 cm CLINICAL CYTOGENETICS DIRECTORSriram Jimenezrbacher Work Phone: [facility] 02-03-2024 10:49-0400 Body temperature 98.3 [degF] CLINICAL CYTOGENETICS DIRECTORSriram Jimenezrbacher Work Phone: [facility] 02-03-2024 10:49-0400 Body weight 81.64 kg CLINICAL CYTOGENETICS DIRECTOR Perlita Barbararbacher Work Phone: [facility] 02-02-2024 14:27-0400 Body height 177.8 cm CLINICAL CYTOGENETICS DIRECTOR Perlita Barbararbacher Work Phone: [facility] 02-02-2024 11:00-0400 Body temperature 97.6 [degF] CLINICAL CYTOGENETICS DIRECTOR Perlita Barbararbacher Work Phone: [facility] 02-02-2024 11:00-0400 Diastolic blood pressure 76 mm[Hg] CLINICAL CYTOGENETICS DIRECTOR Perlita Barbararbacher Work Phone: [facility] 02-02-2024 11:00-0400 Heart rate 94 /min CLINICAL CYTOGENETICS DIRECTOR Perlita Barbararbacher Work Phone: [facility] 02-02-2024 11:00-0400 Respiratory rate 17 /min CLINICAL CYTOGENETICS DIRECTOR Perlita Barbararbacher Work Phone: [facility] 02-02-2024 11:00-0400 SaO2% (BldA) [Mass fraction] 95 % CLINICAL CYTOGENETICS DIRECTOR Perlita Barbararbacher Work Phone: [facility] 02-02-2024 11:00-0400 Systolic blood pressure 138 mm[Hg] CLINICAL CYTOGENETICS DIRECTORSriram BishopPerlita Barbararbacher Work Phone: [facility] 01-26-2024 13:56-0400 Body height 177.8 cm CLINICAL CYTOGENETICS DIRECTOR Perlita Barbararbacher Work Phone: [facility] 01-26-2024 13:56-0400 Body mass index (BMI) [Ratio] 26.8 kg/m2 CLINICAL CYTOGENETICS DIRECTOR Perlita Barbararbacher Work Phone: [facility] 01-26-2024 13:56-0400 Body temperature 98 [degF] CLINICAL CYTOGENETICS DIRECTORSriram Jimenezrbacher Work Phone: [facility] 01-26-2024 13:56-0400 Body weight 84.82 kg CLINICAL CYTOGENETICS DIRECTOR Perlita Giselaacher Work Phone: [facility] 01-26-2024 13:56-0400 Diastolic blood pressure 65 mm[Hg] CLINICAL CYTOGENETICS DIRECTOR Perlita Barbararbacher Work Phone: [facility] 01-26-2024 13:56-0400 Heart rate 81 /min CLINICAL CYTOGENETICS DIRECTOR Perlita Barbararbacher Work Phone: [facility] 01-26-2024 13:56-0400 Respiratory rate 18 /min CLINICAL CYTOGENETICS DIRECTOR Perlita Barbararbacher Work Phone: [facility] 01-26-2024 13:56-0400 SaO2% (BldA) [Mass fraction] 96 % CLINICAL CYTOGENETICS DIRECTORSriram DesaiPerlita Giselaacher Work Phone: [facility] 01-26-2024 13:56-0400 Systolic blood pressure 114 mm[Hg] CLINICAL CYTOGENETICS DIRECTOR Perlita Barbararbacher Work Phone: [facility] 01-22-2024 13:05-0400 Body height 177.8 cm CLINICAL CYTOGENETICS DIRECTOR Perlita Barbararbacher Work Phone: [facility] 01-22-2024 10:27-0400 Body temperature 98.2 [degF] CLINICAL CYTOGENETICS DIRECTORSriram BishopPerlita Giselaacher Work Phone: [facility] 01-22-2024 10:27-0400 Body weight 86.36 kg CLINICAL CYTOGENETICS DIRECTORSriram BishopPerlita Barbararbacher Work Phone: [facility] 01-22-2024 10:27-0400 Diastolic blood pressure 69 mm[Hg] MARY LOU Desaifer Barbararbacher Work Phone: [facility] 01-22-2024 10:27-0400 Heart rate 84 /min CLINICAL CYTOGENETICS DIRECTORSriram Jimenezrbacher Work Phone: [facility] 01-22-2024 10:27-0400 Respiratory rate 16 /min CLINICAL CYTOGENETICS DIRECTOR Perlitamelania Jimenezrbacher Work Phone: [facility] 01-22-2024 10:27-0400 SaO2% (BldA) [Mass fraction] 96 % CLINICAL CYTOGENETICS DIRECTOR Perlita Barbararbacher Work Phone: [facility] 01-22-2024 10:27-0400 Systolic blood pressure 131 mm[Hg] CLINICAL CYTOGENETICS DIRECTORSriram Jimenezrbacher Work Phone: [facility] 01-15-2024 16:54-0400 Body height 177.8 cm CLINICAL CYTOGENETICS DIRECTORSriram Jimenezrbacher Work Phone: [facility] 01-15-2024 10:08-0400 Body temperature 98.2 [degF] CLINICAL CYTOGENETICS DIRECTORSriram Jimenezrbacher Work Phone: [facility] 01-15-2024 10:08-0400 Body weight 88.22 kg CLINICAL CYTOGENETICS DIRECTOR Perlita Barbararbacher Work Phone: [facility] 01-15-2024 10:08-0400 Diastolic blood pressure 79 mm[Hg] CLINICAL CYTOGENETICS DIRECTORSriram DesaiPerlita Barbararbacher Work Phone: [facility] 01-15-2024 10:08-0400 Heart rate 74 /min CLINICAL CYTOGENETICS DIRECTORSriram Jimenezrbacher Work Phone: [facility] 01-15-2024 10:08-0400 Respiratory rate 18 /min CLINICAL CYTOGENETICS DIRECTORSriram DesaiPerlita Barbararbacher Work Phone: [facility] 01-15-2024 10:08-0400 SaO2% (BldA) [Mass fraction] 97 % CLINICAL CYTOGENETICS DIRECTORSriram Jimenezrbacher Work Phone: [facility] 01-15-2024 10:08-0400 Systolic blood pressure 154 mm[Hg] CLINICAL CYTOGENETICS DIRECTORSriram Jimenezrbacher Work Phone: [facility] 01-08-2024 16:57-0400 Body height 177.8 cm CLINICAL CYTOGENETICS DIRECTOR Perlita Giselaacher Work Phone: [facility] 01-08-2024 10:190400 Body temperature 98.7 [degF] CLINICAL CYTOGENETICS DIRECTOR Perlita Barbararbacher Work Phone: [facility] 01-08-2024 10:190400 Body weight 88.45 kg CLINICAL CYTOGENETICS DIRECTORSriram BishopPerlita Giselaacher Work Phone: [facility] 01-08-2024 10:190400 Diastolic blood pressure 64 mm[Hg] CLINICAL CYTOGENETICS DIRECTORSriram DesaiPerlita Giselaacher Work Phone: [facility] 01-08-2024 10:190400 Heart rate 60 /min CLINICAL CYTOGENETICS DIRECTORSriram DesaiPerlita Giselaacher Work Phone: [facility] 01-08-2024 10:040 Respiratory rate 18 /min CLINICAL CYTOGENETICS DIRECTORSriram DesaiPerlita Giselaacher Work Phone: [facility] 01-08-2024 10:190400 SaO2% (BldA) [Mass fraction] 95 % CLINICAL CYTOGENETICS DIRECTOR Perlita Giselaacher Work Phone: [facility] 01-08-2024 10:190400 Systolic blood pressure 132 mm[Hg] MARY LOU Bishopnifer Giselaacher Work Phone: [facility] 01-07-2024 09:26-0400 Body height 177.8 cm CLINICAL CYTOGENETICS DIRECTORSriram DesaiPerlita Giselaacher Work Phone: [facility] 01-07-2024 09:26-0400 Body mass index (BMI) [Ratio] 27.6 kg/m2 CLINICAL CYTOGENETICS DIRECTORSriram Higginsacher Work Phone: [facility] 01-07-2024 09:26-0400 Body weight 87.54 kg CLINICAL CYTOGENETICS DIRECTORSriram Higginsacher Work Phone: [facility] 01-07-2024 09:26-0400 Diastolic blood pressure 66 mm[Hg] MARY LOU Jimenezrbacher Work Phone: [facility] 01-07-2024 09:26-0400 Heart rate 68 /min CLINICAL CYTOGENETICS DIRECTORSriram DesaiPerlita Barbararbacher Work Phone: [facility] 01-07-2024 09:26-0400 SaO2% (BldA) [Mass fraction] 98 % CLINICAL CYTOGENETICS DIRECTORSriram DesaiPerlita Barbararbacher Work Phone: [facility] 01-07-2024 09:26-0400 Systolic blood pressure 114 mm[Hg] CLINICAL CYTOGENETICS DIRECTORSriram Jimenezrbacher Work Phone: [facility] 01-01-2024 17:15-0400 Body height 177.8 cm MARY LOU Higginsacher Work Phone: [facility] 01-01-2024 09:58-0400 Body temperature 98.2 [degF] CLINICAL CYTOGENETICS DIRECTORSriram Higginsacher Work Phone: [facility] 01-01-2024 09:58-0400 Body weight 89.53 kg CLINICAL CYTOGENETICS DIRECTORSriram DesaiPerlita Giselaacher Work Phone: [facility] 01-01-2024 09:58-0400 Diastolic blood pressure 64 mm[Hg] MARY LOU Jimenezrbacher Work Phone: [facility] 01-01-2024 09:58-0400 Heart rate 83 /min CLINICAL CYTOGENETICS DIRECTORSriram Jimenezrbacher Work Phone: [facility] 01-01-2024 09:58-0400 Respiratory rate 18 /min CLINICAL CYTOGENETICS DIRECTORSriram Jimenezrbacher Work Phone: [facility] 01-01-2024 09:58-0400 SaO2% (BldA) [Mass fraction] 96 % MARY LOU Jimenezrbacher Work Phone: [facility] 01-01-2024 09:58-0400 Systolic blood pressure 153 mm[Hg] MARY LOU Desaifer Barbarakorinaacher Work Phone: [facility] 12-22-2023 14:03-0400 Body height 177.8 cm CLINICAL CYTOGENETICS DIRECTOR Perlita Higginsacher Work Phone: [facility] 12-22-2023 14:03-0400 Body mass index (BMI) [Ratio] 28.7 kg/m2 CLINICAL CYTOGENETICS DIRECTOR Perlita Barbarakorinaacher Work Phone: [facility] 12-22-2023 14:03-0400 Body temperature 98.3 [degF] CLINICAL CYTOGENETICS DIRECTOR Perlita Barbarakorinaacher Work Phone: [facility] 12-22-2023 14:03-0400 Body weight 90.71 kg CLINICAL CYTOGENETICS DIRECTOR Perlita Higginsacher Work Phone: [facility] 12-22-2023 14:03-0400 Diastolic blood pressure 67 mm[Hg] CLINICAL CYTOGENETICS DIRECTORSriram BishopPerlita Barbarakorinaacher Work Phone: [facility] 12-22-2023 14:03-0400 Heart rate 61 /min CLINICAL CYTOGENETICS DIRECTOR Perlita Barbarakorinaacher Work Phone: [facility] 12-22-2023 14:03-0400 Respiratory rate 20 /min CLINICAL CYTOGENETICS DIRECTOR Perlita Higginsacher Work Phone: [facility] 12-22-2023 14:03-0400 SaO2% (BldA) [Mass fraction] 95 % CLINICAL CYTOGENETICS DIRECTOR Perlita Barbarakorinaacher Work Phone: [facility] 12-22-2023 14:03-0400 Systolic blood pressure 124 mm[Hg] CLINICAL CYTOGENETICS DIRECTOR Perlita Barbarakorinaacher Work Phone: [facility] 12-17-2023 15:130400 Body height 177.8 cm CLINICAL CYTOGENETICS DIRECTORSriram BishopPerlita Barbarakorinaacher Work Phone: [facility] 12-17-2023 15:13-0400 Body mass index (BMI) [Ratio] 28.6 kg/m2 CLINICAL CYTOGENETICS DIRECTOR Perlita Barbararbacher Work Phone: [facility] 12-17-2023 15:13-0400 Body weight 90.52 kg CLINICAL CYTOGENETICS DIRECTOR Perlita Barbararbacher Work Phone: [facility] 12-17-2023 15:13-0400 Diastolic blood pressure 80 mm[Hg] CLINICAL CYTOGENETICS DIRECTORSriram BishopPerlita Barbararbacher Work Phone: [facility] 12-17-2023 15:13-0400 Heart rate 69 /min CLINICAL CYTOGENETICS DIRECTORSriram DesaiPerlita Barbararbacher Work Phone: [facility] 12-17-2023 15:13-0400 Respiratory rate 18 /min CLINICAL CYTOGENETICS DIRECTORSriram BishopPerlita Barbararbacher Work Phone: [facility] 12-17-2023 15:13-0400 SaO2% (BldA) [Mass fraction] 95 % CLINICAL CYTOGENETICS DIRECTORSriram Jimenezrbacher Work Phone: [facility] 12-17-2023 15:13-0400 Systolic blood pressure 119 mm[Hg] CLINICAL CYTOGENETICS DIRECTORSriram Jimenezrbacher Work Phone: [facility] 11-28-2023 13:01-0400 Diastolic blood pressure 85 mm[Hg] CLINICAL CYTOGENETICS DIRECTORSriram DesaiPerlita Barbararbacher Work Phone: [facility] 11-28-2023 13:01-0400 Heart rate 60 /min CLINICAL CYTOGENETICS DIRECTORSriram Jimenezrbacher Work Phone: [facility] 11-28-2023 13:01-0400 Respiratory rate 16 /min CLINICAL CYTOGENETICS DIRECTORSriram Jimenezrbacher Work Phone: [facility] 11-28-2023 13:01-0400 SaO2% (BldA) [Mass fraction] 94 % MARY LOU Jimenezrbacher Work Phone: [facility] 11-28-2023 13:01-0400 Systolic blood pressure 146 mm[Hg] CLINICAL CYTOGENETICS DIRECTORSriram Jimenezrbacher Work Phone: [facility] 11-28-2023 10:31-0400 Body height 177.8 cm MARY LOU Liu Work Phone: [facility] 11-28-2023 10:31-0400 Body temperature 98.4 [degF] MARY LOU Liu Work Phone: [facility] 11-28-2023 10:31-0400 Body weight 90.7 kg MARY LOU Liu Work Phone: [facility] 11-11-2023 09:20-0400 Body height 177.[address] [facility] 11-11-2023 09:20-0400 Body mass index (BMI) [Ratio] 29 kg/m2 [facility] 11-11-2023 09:20-0400 Body weight 91.[address] [facility] 11-11-2023 09:20-0400 Diastolic blood pressure 76 mm[Hg] [facility] 11-11-2023 09:20-0400 Heart rate 66 /min [facility] 11-11-2023 09:20-0400 SaO2% (BldA) [Mass fraction] 97 % [facility] 11-11-2023 09:20-0400 Systolic blood pressure 146 mm[Hg] [facility] 08-27-2023 08:47-0500 Body height 177.[address] [facility] 08-27-2023 08:47-0500 Body mass index (BMI) [Ratio] 29.2 kg/m2 [facility] 08-27-2023 08:47-0500 Body weight 92.[address] [facility] 08-27-2023 08:47-0500 Diastolic blood pressure 74 mm[Hg] [facility] 08-27-2023 08:47-0500 Heart rate 55 /min [facility] 08-27-2023 08:47-0500 SaO2% (BldA) [Mass fraction] 98 % [facility] 08-27-2023 08:47-0500 Systolic blood pressure 134 mm[Hg] [facility] 08-22-2023 10:41-0500 Body height 177.[address] [facility] 08-22-2023 10:41-0500 Body mass index (BMI) [Ratio] 28.4 kg/m2 [facility] 08-22-2023 10:41-0500 Body weight 89.[address] [facility] 08-22-2023 10:41-0500 Diastolic blood pressure 73 mm[Hg] [facility] 08-22-2023 10:41-0500 Heart rate 64 /min 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); History of head and neck radiation Start: 02-28-2025 End: 02-28-2025 [employer] Hali Rolle MD Work Phone: [facility] Start: 02-28-2025 End: 02-28-2025 [employer] Hali Rolle MD Work Phone: [facility] Start: 02-28-2025 End: 02-28-2025 Office outpatient visit 25 minutes Hali Rolle MD Work Phone: [facility] Comment on above: RLS (restless legs s yndrome) (Primary Dx) Start: 02-28-2025 End: 02-28-2025 ambulatory HALI ROLLE Not Available Start: 12-14-2024 End: 12-14-2024 Bamboo flowsheet Jaswant Zaidi DO Work Phone: [facility] Start: 12-14-2024 End: 12-14-2024 Bamboo flowsheet Jaswant Zaidi DO Work Phone: [facility] Start: 12-14-2024 End: 12-14-2024 ambulatory JASWANT ZAIDI Not Available Start: 12-14-2024 End: 12-14-2024 Office outpatient visit 25 minutes Jaswant Zaidi DO Work Phone: [facility] Comment on above: 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); History of head and neck radiation Start: 12-06-2024 ambulatory Perlita hity:[facility] Start: 11-29-2024 End: 11-29-2024 Bamboo flowsheet Bryan C Windnagel CHILDREN'S COUNSELOR Work Phone: [facility] Start: 11-29-2024 End: 11-29-2024 Bamboo flowsheet Bryan C Windnagel CHILDREN'S COUNSELOR Work Phone: [facility] Start: 11-29-2024 End: 11-29-2024 Office outpatient new 45 minutes Bryan C Windnagel CHILDREN'S COUNSELOR Work Phone: [facility] Comment on above: 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); Asymptomatic bilateral carotid artery stenosis; Myoclonus Start: 11-29-2024 End: 11-29-2024 ambulatory BRYAN C WINDNAGEL Not Available Start: 11-02-2024 End: 11-02-2024 Bamboo flowsheet Jaswant Zaidi DO Work Phone: [facility] Start: 11-02-2024 End: 11-02-2024 Bamboo flowsheet Jaswant Zaidi DO Work Phone: [facility] Start: 11-02-2024 End: 11-02-2024 ambulatory Perlita Liu CLINICAL CYTOGENETICS DIRECTOR Work Phone: [facility] Work Phone: Start: 11-02-2024 End: 11-02-2024 Patient encounter procedure Perlita Liu CLINICAL CYTOGENETICS DIRECTOR Work Phone: [facility] Work Phone: Start: 11-02-2024 End: 11-02-2024 Office outpatient visit 25 minutes Jaswant Zaidi DO Work Phone: [facility] Comment on above: Malignant neoplasm o f larynx (Primary Dx); History of head and neck radiation Start: 11-02-2024 End: 11-02-2024 ambulatory JASWANT ZAIDI Not Available Start: 10-11-2024 End: 10-11-2024 ambulatory Perlita Liu CLINICAL CYTOGENETICS DIRECTOR Work Phone: [facility] Work Phone: Start: 10-11-2024 End: 10-11-2024 Patient encounter procedure Perlita Liu APRN Work Phone: [facility] Work Phone: Start: 09-21-2024 End: 09-21-2024 [...] Admission to same day surgery center Perlita Jimenezamanuel CLINICAL CYTOGENETICS DIRECTOR Work Phone: [facility] Start: 09-08-2024 End: 09-08-2024 ambulatory Perlita Jimenezamanuel CLINICAL CYTOGENETICS DIRECTOR Work Phone: [facility] Work Phone: Start: 09-06-2024 End: 09-06-2024 Patient encounter procedure Perlita Jimenezamanuel SANTIAGON Work Phone: [facility] Work Phone: Start: 09-06-2024 End: 09-06-2024 ambulatory Perlita Jimenezamanuel CLINICAL CYTOGENETICS DIRECTOR Work Phone: [facility] Work Phone: Start: 09-06-2024 Encounter for preprocedural laboratory examination Jaswant Zaidi [facility] Start: 08-31-2024 End: 08-31-2024 ambulatory JASWANT ZAIDI Not Available Start: 08-16-2024 End: 08-16-2024 Patient encounter procedure Perlita Jimenezamanuel BARRETO Work Phone: [facility] [place] Work Phone: Start: 08-16-2024 End: 08-16-2024 ambulatory Perlita Jimenezamanuel CLINICAL CYTOGENETICS DIRECTOR Work Phone: [facility] Work Phone: Start: 08-10-2024 End: 08-10-2024 Office outpatient visit 25 minutes Jaswant Laci Zaidi DO Work Phone: [facility] Comment on above: 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); History of head and neck radiation Start: 08-10-2024 End: 08-10-2024 ambulatory JASWANT ZAIDI Not Available Start: 07-30-2024 End: 07-30-2024 Patient encounter procedure Perlita Jimenezamanuel CLINICAL CYTOGENETICS DIRECTOR Work Phone: [facility] Work Phone: Start: 07-15-2024 End: 07-15-2024 Patient encounter procedure Perlita Alexa CLINICAL CYTOGENETICS DIRECTOR Work Phone: [facility] Work Phone: Start: 07-06-2024 Registered Recurring Perlita Alexa CLINICAL CYTOGENETICS DIRECTOR [facility] Work Phone: Start: 07-06-2024 End: 07-06-2024 Patient encounter procedure Perlita Alexa BARRETO Work Phone: [facility] Work Phone: Start: 07-01-2024 End: 07-01-2024 External Result Encounter Nabil Leonel Fox DO Work Phone: [facility] Department Unsolicited Start: 07-01-2024 End: 07-01-2024 External Result Encounter Nabil Leonel Fox DO Work Phone: [facility] External Department Unsolicited Start: 06-29-2024 End: 06-29-2024 Bamboo flowsheet Jaswant Zaidi DO Work Phone: [facility] Start: 06-29-2024 End: 06-29-2024 Bamboo flowsheet Jaswant Zaidi DO Work Phone: [facility] Start: 06-29-2024 End: 06-29-2024 Office outpatient visit 25 minutes Jaswant Zaidi DO Work Phone: [facility] Comment on above: 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); History of head and neck radiation Start: 06-29-2024 End: 06-29-2024 ambulatory JASWANT ZAIDI Not Available Start: 06-28-2024 End: 06-28-2024 Patient encounter procedure Perlita Liu CLINICAL CYTOGENETICS DIRECTOR Work Phone: [facility] Work Phone: Start: 06-25-2024 End: 06-25-2024 External Result Encounter Nabil Leonel Fox DO Work Phone: [facility] External Department Unsolicited Start: 06-25-2024 End: 06-25-2024 External Result Encounter Nabil Leonel Fox DO [...] Bamboo flowsheet Jaswant Zaidi DO Work Phone: [facility] Start: 05-11-2024 End: 05-11-2024 Bamboo flowsheet Jaswant Zaidi DO Work Phone: [facility] [place] Start: 05-11-2024 End: 05-11-2024 Office outpatient visit 25 minutes Jaswant Zaidi DO Work Phone: [facility] RAMIREZUSKY Comment on above: 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) Start: 05-11-2024 End: 05-11-2024 ambulatory JASWANT ZAIDI Not Available Start: 03-30-2024 End: 03-30-2024 Bamboo flowsheet Jaswant Zaidi DO Work Phone: [facility] RAMIRE[facility] Start: 03-30-2024 End: 03-30-2024 Bamboo flowsheet Jaswant Zaidi DO Work Phone: [facility] Start: 03-30-2024 End: 03-30-2024 Office outpatient visit 25 minutes Jaswant Zaidi DO Work Phone: [facility] [place] Comment on above: Malignant neoplasm o f larynx (CMS/HCC) (Primary Dx); History of head and neck radiation Start: 03-30-2024 End: 03-30-2024 ambulatory JASWANT ZAIDI Not Available Start: 03-29-2024 Registered Recurring MARY LOU Liu Work Phone: [facility] Work Phone: Start: 03-29-2024 Non-patient / Non-visit MARY LOU Liu Work Phone: [facility] Work Phone: Start: 03-29-2024 End: 03-29-2024 Patient encounter procedure MARY LOU Liu Work Phone: [facility] Pall[facility] Start: 03-29-2024 End: 03-29-2024 ambulatory MARY LOU Liu Work Phone: [facility] Work Phone: Start: 03-04-2024 End: 03-04-2024 Patient encounter procedure MARY LOU Liu Work Phone: [facility] Work Phone: Start: 02-27-2024 End: 02-27-2024 Patient encounter procedure MARY LOU Bhat Alexa Work Phone: [facility] Ambulatory Work Phone: Start: 02-26-2024 ambulatory Perlita Liu Fac ility:[facility] Start: 02-26-2024 Registered Recurring CLINICAL CYTOGENETICS DIRECTORSriram bravobreanna Liu [facility] Start: 02-24-2024 Registered Recurring CLINICAL CYTOGENETICS DIRECTOR Sally marcie Liu [facility] Work Phone: Start: 02-24-2024 End: 02-24-2024 Bamboo flowsheet Jaswant Zaidi DO Work Phone: [facility] [place] Start: 02-24-2024 End: 02-24-2024 Bamboo flowsheet Jaswant Zaidi DO Work Phone: [facility] [place] Start: 02-24-2024 Non-patient / Non-visit CLINICAL CYTOGENETICS DIRECTOR Leonel evansmelania Alexa Work Phone: [facility] Work Phone: Start: 02-24-2024 End: 02-24-2024 Office outpatient visit 25 minutes Jaswant Zaidi DO Work Phone: [facility] [place] Comment on above: Malignant neoplasm o f larynx (CMS/HCC) (Primary Dx) Start: 02-24-2024 End: 02-24-2024 Patient encounter procedure MARY LOU Bishopnisarah beth Liu Work Phone: [facility] Palliative Start: 02-24-2024 End: 02-24-2024 ambulatory MARY LOU Bishopnisarah beth Liu Work Phone: [facility] Work Phone: Start: 02-19-2024 End: 02-19-2024 Postop follow up visit related to original px Shanelle Burgess Tito DO Work Phone: [facility] Comment on above: Oral phase dysphagia (Primary Dx); Throat cancer (CMS/HCC) Start: 02-18-2024 End: 02-18-2024 Patient encounter procedure CLINICAL CYTOGENETICS DIRECTORSriram Liu Work Phone: [facility] Work Phone: Start: 02-18-2024 End: 02-18-2024 External Result Encounter Nabil Leonel Fox DO Work Phone: [facility] External Department Unsolicited Start: 02-18-2024 End: 02-18-2024 External Result Encounter Nabil Leonel Fox DO Work Phone: [facility] External Department Unsolicited Start: 02-18-2024 Non-patient / Non-visit CLINICAL CYTOGENETICS DIRECTORSriram Liu Work Phone: [facility] Work Phone: Start: 02-18-2024 Registered Recurring MARY LOU Liu Work Phone: [facility] Acute Work Phone: Start: 02-18-2024 Non-patient / Non-visit MARY LOU Liu Work Phone: [facility] Work Phone: Start: 02-18-2024 End: 02-18-2024 Patient encounter procedure CLINICAL CYTOGENETICS DIRECTORSriram Liu Work Phone: [facility] Palliative Start: 02-18-2024 End: 02-18-2024 ambulatory MARY LOU Liu Work Phone: [facility] Work Phone: Start: 02-16-2024 Non-patient / Non-visit MARY LOU Liu Work Phone: [facility] Work Phone: Start: 02-11-2024 Non-patient / Non-visit CLINICAL CYTOGENETICS DIRECTOR Leonel hardin Barbararbacher Work Phone: [facility] Work Phone: Start: 02-09-2024 Non-patient / Non-visit CLINICAL CYTOGENETICS DIRECTOR Leonel evansmelania Barbararbacher Work Phone: [facility] Work Phone: Start: 02-09-2024 End: 02-09-2024 Patient encounter procedure MARY LOU Perlita Giselaacher Work Phone: [facility] Work Phone: Start: 02-09-2024 End: 02-09-2024 ambulatory CLINICAL CYTOGENETICS DIRECTOR Perlita Giselaacher Work Phone: [facility] Work Phone: Start: 02-09-2024 Registered Recurring CLINICAL CYTOGENETICS DIRECTORSriram Zavala lawrencebreanna Higginsacher Work Phone[facility] Work Phone: Start: 02-03-2024 End: 02-03-2024 Admission to same day surgery center MARY LOU Higginsacher Work Phone: [facility] [place] Start: 02-03-2024 End: 02-03-2024 ambulatory CLINICAL CYTOGENETICS DIRECTOR Perlita Giselaacher Work Phone: [facility] Work Phone: Start: 02-02-2024 Registered Recurring CLINICAL CYTOGENETICS DIRECTOR Sally lawrencebreanna Jimenezrbacher [facility] Work Phone: Start: 02-02-2024 Non-patient / Non-visit CLINICAL CYTOGENETICS DIRECTORSriram Jimenezrbacher Work Phone: [facility] Work Phone: Start: 02-02-2024 End: 02-02-2024 Patient encounter procedure CLINICAL CYTOGENETICS DIRECTORSriram Jimenezrbacher Work Phone: [facility] Palliative Start: 02-02-2024 End: 02-02-2024 ambulatory CLINICAL CYTOGENETICS DIRECTORSriram Bhat Rohrbacher Work Phone: [facility] Work Phone: Start: 01-29-2024 Registered Recurring CLINICAL CYTOGENETICS DIRECTORSriram jack Rohrbacher [facility] Start: 01-28-2024 Non-patient / Non-visit CLINICAL CYTOGENETICS DIRECTORSriram hardin Barbararbacher Work Phone: [facility] Work Phone: Start: 01-26-2024 End: 01-26-2024 Patient encounter procedure CLINICAL CYTOGENETICS DIRECTORSriram Bhat Barbararbacher Work Phone: [facility] Work Phone: Start: 01-26-2024 Non-patient / Non-visit CLINICAL CYTOGENETICS DIRECTORSriram Jimenezrbacher Work Phone: [facility] Work Phone: Start: 01-26-2024 Registered Recurring CLINICAL CYTOGENETICS DIRECTORSriram jack Barbararbacher Work Phone: [facility] Work Phone: Start: 01-26-2024 End: 01-26-2024 Patient encounter procedure CLINICAL CYTOGENETICS DIRECTORSriram Bhat Barbararbacher Work Phone: [facility] Start: 01-26-2024 End: 01-26-2024 ambulatory CLINICAL CYTOGENETICS DIRECTORSriram Bhat Barbararbacher Work Phone: [facility] Work Phone: Start: 01-23-2024 Registered Recurring CLINICAL CYTOGENETICS DIRECTORSriram Liu [facility] Work Phone: Start: 01-23-2024 Non-patient / Non-visit CLINICAL CYTOGENETICS DIRECTOR Leonel hardin Giselaacher Work Phone: [facility] Work Phone: Start: 01-23-2024 End: 01-23-2024 Patient encounter procedure CLINICAL CYTOGENETICS DIRECTOR Perlita Alexa Work Phone: [facility] Start: 01-23-2024 End: 01-23-2024 ambulatory CLINICAL CYTOGENETICS DIRECTOR Perlita Alexa Work Phone: [facility] Work Phone: Start: 01-21-2024 Non-patient / Non-visit CLINICAL CYTOGENETICS DIRECTORSriram kruegerjoesarah beth Higginsacher Work Phone: [facility] Work Phone: Start: 01-20-2024 Non-patient / Non-visit CLINICAL CYTOGENETICS DIRECTOR Leonel Higginsacher Work Phone: [facility] Work Phone: Start: 01-19-2024 Non-patient / Non-visit CLINICAL CYTOGENETICS DIRECTORSriram Higginsacher Work Phone: [facility] Work Phone: Start: 01-19-2024 Registered Recurring CLINICAL CYTOGENETICS DIRECTOR Sally lawrencebreanna Liu Work Phone: [facility] Work Phone: Start: 01-19-2024 Non-patient / Non-visit CLINICAL CYTOGENETICS DIRECTOR Leonel Jimenezrbacher Work Phone: [facility] Work Phone: Start: 01-19-2024 Non-patient / Non-visit CLINICAL CYTOGENETICS DIRECTOR Leonel Jimenezrbacher Work Phone: [facility] Work Phone: Start: 01-19-2024 End: 01-19-2024 Patient encounter procedure MARY LOU Jimenezrbacher Work Phone: [facility] Start: 01-19-2024 End: 01-19-2024 ambulatory CLINICAL CYTOGENETICS DIRECTORSriram Bhat Barbararbacher Work Phone: [facility] Work Phone: Start: 01-15-2024 Registered Recurring CLINICAL CYTOGENETICS DIRECTORSriram Jimenezrbacher Work Phone: [facility] [place] Start: 01-13-2024 Non-patient / Non-visit CLINICAL CYTOGENETICS DIRECTOR Leonel Jimenezrbacher Work Phone: [facility] Work Phone: Start: 01-12-2024 Registered Recurring CLINICAL CYTOGENETICS DIRECTORSriram Jimenezrbacher Work Phone: [facility] Work Phone: Start: 01-12-2024 Non-patient / Non-visit CLINICAL CYTOGENETICS DIRECTORSriram Jimenezrbacher Work Phone: [facility] Work Phone: Start: 01-12-2024 End: 01-12-2024 Patient encounter procedure CLINICAL CYTOGENETICS DIRECTORSriram Jimenezrbacher Work Phone: [facility] Start: 01-12-2024 End: 01-12-2024 ambulatory CLINICAL CYTOGENETICS DIRECTORSriram Jimenezrbacher Work Phone: [facility] Work Phone: Start: 01-07-2024 Non-patient / Non-visit CLINICAL CYTOGENETICS DIRECTOR Leonel hardin Rohrbacher Work Phone: [facility] Pall[facility] Care Work Phone: Start: 01-07-2024 End: 01-07-2024 Patient encounter procedure CLINICAL CYTOGENETICS DIRECTORSriram Jimenezrbacher Work Phone: [facility] Work Phone: Start: 01-07-2024 Registered Recurring CLINICAL CYTOGENETICS DIRECTORrSiram jack Rohrbacher Work Phone: [facility] Acute Work Phone: Start: 01-07-2024 End: 01-07-2024 Patient encounter procedure CLINICAL CYTOGENETICS DIRECTORSriram Jimenezrbacher Work Phone: [facility] Work Phone: Start: 01-07-2024 End: 01-07-2024 Patient encounter procedure CLINICAL CYTOGENETICS DIRECTORSriram Jimenezrbacher Work Phone: [facility] Palliative Start: 01-07-2024 End: 01-07-2024 ambulatory CLINICAL CYTOGENETICS DIRECTORSriram Bhat Barbararbacher Work Phone: [facility] Work Phone: Start: 01-06-2024 Non-patient / Non-visit CLINICAL CYTOGENETICS DIRECTOR Leonel hardin Barbararbacher Work Phone: [facility] Work Phone: Start: 01-05-2024 Non-patient / Non-visit CLINICAL CYTOGENETICS DIRECTOR Leonel hardin Barbararbacher Work Phone: [facility] Work Phone: Start: 01-01-2024 Registered Recurring CLINICAL CYTOGENETICS DIRECTORSriram Jimenezrbacher [facility] Phone[facility] Start: 12-31-2023 Non-patient / Non-visit CLINICAL CYTOGENETICS DIRECTOR Leonel hardin Barbararbacher Work Phone: [facility] Work Phone: Start: 12-30-2023 Non-patient / Non-visit CLINICAL CYTOGENETICS DIRECTOR Leonel hardin Giselaacher Work Phone: [facility] Work Phone: Start: 12-23-2023 End: 12-23-2023 Patient encounter procedure MARY LOU Bhat Giselaacher Work Phone: [facility] Work Phone: Start: 12-22-2023 End: 12-22-2023 Patient encounter procedure CLINICAL CYTOGENETICS DIRECTORSriram Bhat Beverleyr Work Phone: [facility] Work Phone: Start: 12-18-2023 Non-patient / Non-visit CLINICAL CYTOGENETICS DIRECTOR Leonel hardin Giselaacher Work Phone: [facility] Work Phone: Start: 12-17-2023 End: 12-17-2023 Patient encounter procedure CLINICAL CYTOGENETICS DIRECTOR Perlita Beverleyr Work Phone: [facility] Work Phone: Start: 12-08-2023 End: 12-08-2023 ambulatory CLINICAL CYTOGENETICS DIRECTOR Perlita Beverleyr Work Phone: [facility] Work Phone: Start: 12-08-2023 End: 12-08-2023 Patient encounter procedure MARY LOU Perlita Beverleyr Work Phone: [facility]-Pet Scan Work Phone: Start: 12-05-2023 End: 12-05-2023 ambulatory CLINICAL CYTOGENETICS DIRECTOR Perlita Beverleyr Work Phone: [facility] Work Phone: Start: 12-05-2023 End: 12-05-2023 Departed Referred MARY LOU Perlita Beverleyr Work Phone: [facility]-Lab [facility] [place] Work Phone: Start: 12-02-2023 End: 12-02-2023 ambulatory MARY LOU Bhat Alexa Work Phone: [facility] Work Phone: Start: 12-02-2023 End: 12-02-2023 Patient encounter procedure MARY LOU Bhat Alexa Work Phone: [facility]-Electrodiagnostics Work Phone: Start: 11-28-2023 Non-patient / Non-visit MARY LOU hardin Alexa Work Phone: [facility] Work Phone: Start: 11-28-2023 End: 11-28-2023 Admission to same day surgery center MARY LOU Bhat Alexa Work Phone: [facility] Work Phone: Start: 11-28-2023 End: 11-28-2023 ambulatory MARY LOU Bhat Alexa Work Phone: [facility] Work Phone: Start: 11-11-2023 End: 11-11-2023 ambulatory [facility] Work Phone: Start: 11-11-2023 End: 11-11-2023 Patient encounter procedure [facility] Work Phone: Start: 08-27-2023 End: 08-27-2023 Patient encounter procedure [facility] Work Phone: Start: 08-22-2023 End: 08-22-2023 Patient encounter procedure [facility] Work Phone: Start: 08-01-2023 Clinisync Result Encounter Shaikh Joseph ROE Work Phone: [facility] External Department Unsolicited Start: 08-01-2023 Clinisync Result Encounter Shaikh Joseph ROE Work Phone: [facility] External Department Unsolicited Procedures Date Procedure Procedure Detail Performing Clinician Start: 09-08-2024 Endoscopy of esophagus Perlita carlos CLINICAL CYTOGENETICS DIRECTOR Work Phone: Start: 07-01-2024 ISTAT XRAY CRE Nabil Castaneda Ruddy DO Work Phone: Start: 07-01-2024 MRI of orbit, face and neck with contrast Perlita Liu APRN Work Phone: Start: 06-25-2024 Positron emission tomography with computed tomography Perlita Alexa CLINICAL CYTOGENETICS DIRECTOR Work Phone: Start: 06-25-2024 GLUCOSE POCT GLUCOMETERS Nabil Castaneda Lucas knight DO Work Phone: Start: 02-18-2024 Comprehensive metabolic panel Nabil Castaneda Ruddy DO Work Phone: Start: 02-03-2024 Esophagogastroduodenoscopy CLINICAL CYTOGENETICS DIRECTOR Perlita Liu Work Phone: Start: 01-23-2024 Plain chest X-ray CLINICAL CYTOGENETICS DIRECTOR Perlita Liu Work Phone: Start: 12-08-2023 Positron emission tomography with computed tomography CLINICAL CYTOGENETICS DIRECTOR Perlita Liu Work Phone: Start: 11-28-2023 Esophagogastroduodenoscopy CLINICAL CYTOGENETICS DIRECTOR Perlita Liu Work Phone: Start: 08-01-2023 NELIA Ruiz MD Work Phone: Plan of Treatment Date Care Activity Detail Author Start: 06-14-2025 End: 06-14-2025 Patient encounter procedure 06/14/2025 10:15 AM EST Office Visit [facility] [address] [place] [phone] Jaswant Zaidi DO [address] [place] [address] [facility] Start: 06-02-2025 End: 06-02-2025 Patient encounter procedure 06/02/2025 10:00 AM EST Office Visit [facility] [address] [facility] [address] [place] [phone] Hali Rolle MD [address] [facility] [address] [place] [phone] [facility] Start: 03-08-2025 End: 03-08-2025 Patient encounter procedure [facility] [place] Start: 02-28-2025 End: 02-28-2025 Patient encounter procedure [facility] Comment on above: Arrived Start: 02-21-2025 Influenza vaccination [facility] Start: 12-21-2024 End: 12-21-2024 Patient encounter procedure [facility] [address] Start: 12-14-2024 End: 12-14-2024 Patient encounter procedure 12/14/2024 9:45 AM EDT Office Visit [facility] [place] [address] [place] [phone] Jaswant Zaidi W, [address] [place] [address] [facility] [place] [place] Start: 11-29-2024 End: 11-29-2025 US.doppler Carotid arteries - bilateral Vascular US carotid artery duplex bilateral Imaging Routine 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) Asymptomatic bilateral carotid artery stenosis Expected: 11/29/2024 (Approximate), Expires: 11/29/2025 [facility] Work Phone: Comment on above: Expected: 11/29/2024 (Approximate), Expires: 11/29/2025 Start: 11-29-2024 End: 11-29-2024 Patient encounter procedure 11/29/2024 9:30 AM EDT Office Visit [facility] [address] [place] [phone] Bryan Juarez, CHILDREN'S COUNSELOR [address], [facility] [address] [place] [address] Arrived [facility] COLÓN Comment on above: Arrived Start: 11-02-2024 Patient referral [facility] Work Phone: Start: 11-02-2024 End: 11-02-2024 Patient encounter procedure 11/02/2024 9:45 AM EDT Office Visit [facility] [place] [address] [place] [phone] Jaswant Zaidi, DO [address] [place] [address] [facility] [place] Start: 09-21-2024 End: 09-21-2024 Patient encounter procedure 09/21/2024 9:45 AM EDT Office Visit [facility] [place] [address] [place] [phone] Jaswant Zaidi, [address] [place] [address] Arrived [facility] [place] [place] Comment on above: Arrived Start: 09-08-2024 End: 09-08-2024 [facility] Start: 08-10-2024 End: 08-10-2024 Patient encounter procedure 08/10/2024 10:45 AM EST Office Visit [facility] [place] [address] [place] [phone] Jaswant Zaidi, DO [address] [place] [address] [facility] [place] Start: 06-29-2024 End: 06-29-2024 Patient encounter procedure [facility] [place] Comment on above: Arrived Start: 06-03-2024 End: 06-03-2024 Patient encounter procedure 06/03/2024 9:30 AM EST Office [facility] [address] [place] [address] Shanelle Mallory, DO [address] [place] [address] [facility] Start: 05-11-2024 End: 05-11-2024 Patient encounter procedure [facility] [place] Comment on above: Arrived Start: 03-30-2024 End: 03-30-2024 Patient encounter procedure [facility] [place] Comment on above: Arrived Start: 02-24-2024 End: 02-24-2024 Patient encounter procedure [facility] [place] Comment on above: Arrived Start: 02-22-2024 Influenza vaccination [facility] Start: 02-19-2024 End: 02-19-2024 Patient encounter procedure 02/19/2024 11:15 AM EDT Office [facility] [address] [place] [address] Shanelle Mallory, DO [address] [place] [address] [facility] Start: 02-19-2024 [facility] Start: 02-17-2024 [facility] Start: 02-10-2024 [facility] Start: 02-05-2024 [facility] Start: 02-03-2024 End: 02-03-2024 [facility] Start: 01-29-2024 [facility] Start: 01-22-2024 [facility] Start: 01-15-2024 [facility] Start: 01-08-2024 [facility] Start: 01-01-2024 [facility] Start: 01-01-2024 [facility] Start: 12-22-2023 Patient referral [facility] Work Phone: Start: 12-17-2023 Patient referral [facility] Work Phone: Start: 11-28-2023 Patient referral [facility] Work Phone: Start: 11-28-2023 [facility] Start: 11-11-2023 Patient referral [facility] Work Phone: Start: 08-25-2023 End: 08-25-2023 Patient encounter procedure 08/25/2023 9:30 AM EST Office Visit [facility] [address] [place] [phone] Shaikh Ruiz MD [address] [place] [phone] [facility] Start: 2017 Pneumococcal Vaccine : 65+ Years (1 of 1 - PCV) Pneumococcal Vaccine: 65+ Years (1 of 1 - PCV) [facility] Start: 2002 Pneumococcal Vaccine : 65+ Years (1 of 1 - PCV) Pneumococcal Vaccine: 65+ Years (1 of 1 - PCV) [facility] Start: 1958 Pneumococcal Vaccine : 65+ Years (1 - PCV) Pneumococcal Vaccine: 65+ Years (1 - PCV) [facility] Start: 1952 Medicare Annual Wellness (AWV) Medicare Annual Wellness (AWV) [facility] Start: 1950 Screening for malignant neoplasm of colon [facility] CBC W Auto Differential panel - Blood CBC auto differential Lab Routine 02/18/2024 12:35 PM EDT [facility] Work Phone: Comprehensive metabolic 1999 panel - Serum or Plasma [facility] Comprehensive metabolic 1999 panel - Serum or Plasma [facility] Comprehensive metabolic 1999 panel - Serum or Plasma [facility] Comprehensive metabolic 1999 panel - Serum or Plasma [facility] Comprehensive metabolic 1999 panel - Serum or Plasma [facility] Computed tomography for radiotherapy planning [facility] Patient Education [facility] Work Phone: Patient referral [facility] Work Phone: [facility] Immunizations Immunization Date Immunization Notes Care Provider Fa cility 04-15-2023 COVID-19 (PFIZER) 12Y and older [facility] 04-15-2023 Fluzone QIV High-Dos e 65YR+ [facility] 04-15-2023 influenza virus vaccine, unspecified formulation Nabil Ruddy DO Work Phone: [facility] Payers Date Payer Category Payer Medicare (Managed Care) [place] [place] [facility] [id number] 2024 Unknown [id number] 2023 Self-pay 2023 Medicaid [employer] MEDICARE A DVANTAGE [id number] 2023 Private Health Insurance [id number] 2022 Unknown [facility] [id number] 2022-Present [address] [place] [id number] [id number]. [id number] 2017 Medicare [id number]. [id number] 1952 Unknown [id number] 2.16.840.1.178559.3.579.2. 1258 1952 Unknown [id number] 2.16.840.1.634415.3.579.2. 1259 1952 Unknown [id number] 2.16.840.1.166919.3.579.2. 125 1952 Unknown [id number] 2.16.840.1.437495.3.579.2. 1259 1952 Unknown [id number] 2.16.840.1.629510.3.579.2. 1258 1952 Unknown [id number] 2.16.840.1.586636.3.579.2. 1259 1952 Unknown [id number] 2.16.840.1.124537.3.579.2. 1259 1952 Unknown [id number] 2.16.840.1.439478.3.579.2. 1259 1952 Unknown [id number] 2.16.840.1.823232.3.579.2. 1259 1952 Unknown [id number] 2.16.840.1.063048.3.579.2. 1259 1952 Unknown [id number] 2.16.840.1.276149.3.579.2. 125 1952 Unknown [id number] 2.16.840.1.951667.3.579.2. 1259 Medicare Medicare [id number] Unknown [id number] 2.16.840.1.445813.3.579.2. 531 Unknown [id number] 2.16.840.1.713740.3.579.2. 531 Unknown [id number] 2.16.840.1.023635.3.579.2. 531 Unknown [id number] 2.16.840.1.908234.3.579.2. 531 Unknown [id number] 2.16.840.1.587684.3.579.2. 531 Unknown [id number] 2.16.840.1.074059.3.579.2. 531 Unknown [id number] 2.16.840.1.546879.3.579.2. 531 Unknown [id number] 2.16.840.1.014899.3.579.2. 531 Unknown [id number] 2.16.840.1.156816.3.579.2. 531 Unknown [id number] 2.16.840.1.320758.3.579.2. 531 Unknown [id number] 2.16.840.1.574354.3.579.2. 531 Unknown [id number] 2.16.840.1.366464.3.579.2. 531 Unknown [id number] 2.16.840.1.754115.3.579.2. 531 Unknown [id number] 2.16840.1.703831.3.579.2. 531 Unknown [id number] 2.16840.1.797724.3.579.2. 531 Unknown [id number] 2.16.840.1.381467.3.579.2. 531 Social History Date Type Detail Facility Start: 06-24-2023 End: 11-29-2024 Tobacco smoking status NHIS Ex-smoker [facility] Start: 06-23-2019 End: 06-23-2019 History of tobacco use Current smoker [facility] Start: 06-23-2019 End: 06-23-2019 History of tobacco use Cigarette Smoker [facility] Start: 06-24-2023 End: 11-29-2024 Tobacco use and exposure Smokeless tobacco non-user [facility] Start: 06-24-2023 End: 03-08-2025 Alcohol intake Current drinker of alcohol (finding) [facility] Start: 06-24-2023 End: 12-14-2024 History of Social function [facility] Start: 06-24-2023 End: 12-14-2024 Tobacco use panel [facility] Start: 06-24-2023 Alcohol Comment [facility] Start: 1950 Sex Assigned At Not on file [facility] Start: 1950 Sex Assigned At Male F [facility] How often to you hav e a [...] Start: 08-17-2024 End: 11-02-2024 Sex Male (finding) [facility] Start: 11-29-2024 Alcohol Comment Caffeine: 1 cu ps per day [facility] Goals Date Patient Goal Desired Activity /State Clinical Notes 11-28-2023 to 03-08-2025 Jaswant Zaidi, DO - 03/08/2025 10:15 AM Luis Felipe Rolle MD - 02/28/2025 9:40 AM Alla Zaidi, DO - 12/14/2024 9:45 AM David Juarez NP - 11/29/2024 7:30 AM EDT Note Date & Type Note Facility 03-08-2025 History of Present illness Narrative Formatting of this note might be differe nt from the original. Subjective Patient ID: HPI Patient presents today for cancer surveillance. 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 Says he has gained some weight, seems to be doing okay. Review of Systems ROS The specialty specific [...] and base of tongue appear without lesion No evidence of either new or recurrent tumor Assessment/Plan Valente was seen today for cancer. Diagnoses and all orders for this visit: Malignant neoplasm of larynx (HCC) (Primary) Comments: No evidence of disease on today's exam, I will see him back in 6 weeks History of head and neck radiation Comments: See above documented in this encounter [facility] 02-28-2025 History of Present illness Narrative Formatting of this note might be differe nt from the original. Images from the original note were not included. Subjective Valente Lucio is a 74 y.o. male who presents for a follow up for management of stroke & gait instability. He is following [facility] for Carotid US results that are in chart under media for review. Patient states he has no balance. He states that his legs are weak. But he has left AFO and cane which helps. But he states he has falls everyday. He states he is very active. He cannot walk on uneven ground.But once he is established he is ok. He states he cannot do two things at the same time. History of Present Illness The patient is a 74-year-old male who presents for evaluation of previous right middle cerebral artery stroke and restless legs syndrome. He reports persistent instability in his legs, describing them as wobbly and lacking balance. He uses an AFO to prevent foot drop, which he finds helpful. Despite daily falls, he remains active, using a wheelchair for mobility and occasionally climbing 8-foot ladders. He finds it challenging to perform tasks simultaneously with both hands, which he believes strains his mind. He has not experienced any stroke-like symptoms on the right side. He finds it difficult to stand for extended periods and concentrate on tasks. He can walk long distances with the aid of a cane without needing to sit down. He continues to take aspirin for prevention and Cozaar for blood pressure management. He had a stroke on the left side in 11/2019, which was confirmed by a CT scan. He underwent therapy, which he found beneficial during the sessions, but has since discontinued it. He tries to incorporate physical activity into his daily routine, as he feels better when active. He also experiences restless leg syndrome, for which he takes ropinirole 2 mg 1 at breakfast, 1 at lunch, and 3 at night. However, he reports that the medication's effectiveness has decreased over time. He often wakes up around 1 or 2 AM and takes an additional dose. He previously took Lyrica but discontinued it due to unpleasant side effects. INTERVAL: Since last visit, he reports that his carotid artery status has remained stable, and he continues to experience daily falls. SOCIAL HISTORY: Sleep: He reports waking up at 4:00 AM and experiencing restlessness and anxiety, often getting up to work in the garage. PAST SURGICAL HISTORY: He had carpal tunnel surgery on the right side about a year ago, which resolved his constant pain. MEDICATIONS CURRENT MEDS: Requip 2 mg Oral Five times daily Aspirin Oral Cozaar Oral PREVIOUS MEDS: Lyrica Oral Reason for Discontinuation: Didn't like how it made me feel Review of Systems Constitutional: Negative for chills, diaphoresis, fatigue and fever. HENT: Negative for ear pain, tinnitus and trouble swallowing. Eyes: Negative for photophobia and visual disturbance. Respiratory: Negative for cough and shortness of breath. Cardiovascular: Negative for palpitations and leg swelling. Gastrointestinal: Negative for abdominal pain and nausea. Genitourinary: Negative for difficulty urinating and urgency. Musculoskeletal: Positive for gait problem. Negative for arthralgias, back pain, myalgias, neck pain and neck stiffness. Neurological: Negative for tremors, weakness, light-headedness and numbness. Psychiatric/Behavioral: Negative for agitation, confusion and suicidal ideas. Objective Blood pressure 100/62, weight 135 lb. Physical Exam Motor Examination Strength: Upper limb strength is normal bilaterally. Lower limb strength is normal bilaterally. Gait and Station Gait: Unsteady gait. Results 12/21/2024-Carotid artery ultrasound: Carotid artery on the left side is about 50-69% stenosed, closer to 50%. 08/31/2024 modified barium swallow recommended mechanical soft [...] consistent with a moderate carpal tunnel syndrome Assessment & Plan 1. Previous right middle cerebral artery stroke. His carotid condition remains stable, which is a positive sign. A prescription for thiamine 100 mg once daily will be provided to potentially improve his balance. This treatment will be trialed for a period of 3 months. If no improvement is observed, the medication will be discontinued. 2. Restless legs syndrome. The dosage of Requip will be increased to 6 tablets daily, taken as 2 mg at breakfast, 2 mg at lunch, 3 (2mg) tablets at at bedtime, This adjustment aims to enhance his sleep quality and reduce nighttime awakenings. The prescription will be sent to his pharmacy at [facility]. Follow up Increase requip to 6 tablets a day Follow up 3 months. This clinical note was created utilizing [employer] documentation system. All information has been thoroughly reviewed, corrected as necessary, and authenticated by the provider to ensure accuracy and completeness. On occasion, [employer] documentation system erroneously drops words or replaces a spoken word with a similar sounding word. Please notify with any questions or concerns regarding this clinical note. documented in this encounter [facility] 12-14-2024 History of Present illness Narrative Formatting [...] Comments: See above documented in this encounter [facility] 11-29-2024 History of Present illness Narrative Formatting of this note is different fro m the original. Images from the original note were not included. CHIEF COMPLAINT REASON FOR VISIT : CHILDREN'S COUNSELOR HPI: Valente Lucio is a 74 y.o. male who presents for management of stroke. Medical history includes COPD, hyperlipidemia, restless legs syndrome, BPH, generalized anxiety, carotid stenosis, carpal tunnel syndrome, periodic limb movement disorder, squamous cell carcinoma of the hypopharynx and MEDHAT. His stroke was in [place] in 2019. He had left CEA in 2019. His last ultrasound was 3 years ago. [...] 12/02/2023 History of tobacco use 12/02/2023 Hypercholesterolemia ([facility]/HCC) Hypertension (CMS/[facility]) At goal. denies orthostasis Hypertension ([facility]/HCC) 12/02/2023 Left hemiplegia ([facility]/HCC) 12/02/2023 Long-term use of aspirin therapy 06/26/2024 [...] uses one Lyrica in morning. Rheumatoid arthritis ([facility]/HCC) Stroke ([facility]) Throat cancer ([facility]) 11/2023 Past Surgical History: Procedure Laterality Date [...] Timothy's absent. Crossed adductor present. Coordination Right: Vszqtw-dz-wlwo normal. Rapid alternating movement normal.Left: Zkimme-yi-ddhw abnormality: Rapid alternating movement abnormality: Difficulty with [...] hypopharynx and MEDHAT. His stroke was in [place] in 2019. He had CEA in 2020. Stroke risk [...] with Dr Rolle. documented in this encounter [facility] 11-02-2024 History of Present illness Narrative [...] at that time documented in this encounter [facility] 10-11-2024 Evaluation note Diagnosis Onset Date Resolution Squamous cell carcinoma of hypopharynx acute October 11, 2024 10:47am Falls frequently acute October 1:28pm Oropharyngeal dysphagia acute M 2024 1:28pm Stroke acute November 02, 2024 1:28pm [facility] Work Phone: 1(202) 474-595504-21-2025 [facility] [place] [address] Cancer Center Note Signed Patient: Valente Lucio MR#: [id number] : 1950 Acct:[id number] Age/Sex: 74 / M Type: DEP AMB Date of Service: 10/11/24 Copies to: DO Perlita Garcia APRN, AUTOMOBILE SALES REPRESENTATIVE~ Assessment & Plan (1) Squamous cell carcinoma [...] tizanidine Allergy (Verified 09/08/24 08:02) muscle stiffness [facility] Medical History Medical History (Updated 09/08/24 @ [...] 07:09/06/24 Creatinine 0.48 mg/dL (0.70-1.30) L 09/06/24 07: Est GFR (CKD-EPI) > 60.0 mL/Min 09/06/24 07:09/06/24 Sodium 136 mmol/L (136-145) 09/06/24 07:09/06/24 Potassium [...] MD DD/ 0843 Signed By: 10/11/24 1138 [facility]04-01-2025 History of Present illness Narrative [...] See above Pharyngoesophageal dysphagia [id number] History of Present illness Narrative* Jaswant Zaidi [...] may need esophageal dilation. documented [facility] [id number] Evaluation note* Diagnosis Onset Date Resolution Status Admit Date Maxillary sinusitis acute Febru keith2024 9:54am Squamous cell carcinoma of hypopharynx acute October 11, 2024 10:47am [facility] Work Phone: 1(118) 113-622601-07-2025 History of Present illness Narrative* Jaswant Zaidi DO - 06/29/2024 10:45 AM EST Subjective Patient [...] back in 6 weeks documented [facility] encounter[facility] [id number] Evaluation note* Diagnosis Onset Date Resolution Status Admit Date Squamous cell carcinoma of hypopharynx acute June 28 3:52pm Squamous cell carcinoma of hypopharynx acute July 06 11:10am Dysphagia acute July 15, 2024 12:59pm Oropharyngeal mass acute 2024 12:59pm S/P percutaneous endoscopic gastrostomy (PEG) tube placement acute July 15 12:59pm Squamous cell carcinoma of hypopharynx acute July 15 12:59pm Maxillary sinusitis acute u 2024 9:54am [facility] Work Phone: 1(426) 111-532012-12-2024 History of Present illness Narrative* Shanelle Mallory DO - 06/03/2024 9:30 AM EST Images from the original note were not included. Valente Lucio 1950 Valente Lucio is a 73 y.o. male presents with chief complaint of Peg tube removal HPI: FLORES Victor presents for removal of the feeding tube. [...] Hypertension (CMS/HCC) At goal. denies orthostasis Hypertension ([facility]/HCC) 12/02/2023 Left hemiplegia ([facility]/HCC) 12/02/2023 Oropharyngeal mass 12/02/2023 Osteoarthritis of knee [...] uses one Lyrica in morning. Rheumatoid arthritis (CMS/HCC) Stroke ([facility]/HCC) 2019 H/o ischemic stroke with residual left sided hemiparesis and olena anesthesia in 2019 On ASA, statin Stroke ([facility]) 12/02/2023 Throat cancer ([facility]) 11/2023 Social History Tobacco Use Smoking status: [...] List Items Addressed This Visit Throat cancer ([facility]) - Primary Oral phase dysphagia I removed the feeding tube without complications, all parts of the tube were accounted for. I'll see him PRN documented in this encounterR[facility] [id number] History of Present illness Narrative* Jaswant Zaidi [...] back in 6 weeks. documented in this encounterR[facility] CenterSleclmhbju10-41-2628 History of Present illness Narrative* Jaswant Zaidi [...] radiation Comments: See above documented in this encounterR[facility] [id number] Progress note Author Deirdre Law [facility] March 29, 2024 2:09pm Note Date/Time March 29, 2024 1: 23pm [facility] [address] [place] [address] Palliative Medicine Encounter Patient: Valente Lucio MR#: [id number] : 1950 Acct:[id number] Age/Sex: 73 / M Copies to: Perlita Liu APRN, AUTOMOBILE SALES REPRESENTATIVE Deirdre Law APRN~ HPI Date of Visit [...] #500 mL Is patient having pain?: [facility] Oropharyngeal mass High cholesterol BPH [...] not used for weeks ; OR aware Edelstein Symptom Assessment Scale Pain: throat pain improved [...] recorder, note dictated by Deirdre Law APRN, CHILDREN'S COUNSELOR-C Dictated By: Deirdre Law APRN DD/ 1323 Signed By: <Electronically signed by MARY LOU Law> 03/29/24 3818 [facility] Work Phone: 1(575) 742-909409-03-2024 History of Present illness Narrative* Jaswant Zaidi, [...] aspiration. No obvious tumor is noted. Assessment/Plan Valente was seen today for cancer. Diagnoses and all orders for this visit: Malignant neoplasm of larynx (CMS/HCC) (Primary) Comments: Patient encouraged to finish treatment and I will see him back in a month documented in this [facility]08-29-2024 History of Present illness Narrative* Shanelle Mallory [...] I'll see him PRN documented in this [facility]08-19-2024 Progress note Author Deirdre Law [facility] February 09, 2024 2:03pm Note Date/Time February 09, 2024 1: 43pm [facility] [address] [place] [address] Palliative Medicine Encounter Patient: Valente Lucio MR#: [id number] : 1950 Acct:[id number] Age/Sex: 73 / M Copies to: Perlita [...] not used for weeks ; OR aware Edelstein Symptom Assessment Scale Pain: neck and throat [...] recorder, note dictated by Deirdre Law APRN, CHILDREN'S COUNSELOR-C Dictated By: Deirdre Law APRN DD/ 1335 Signed By: <Electronically signed by MARY LOU Law> 02/09/24 1403 [facility] Work Phone: 1(522) 802-342808-05-2024 Progress note Author Deirdre Law [facility] January 26, 2024 2:14pm Note Date/Time January 26, 2024 1:[address] [facility] [address] [place] [address] Palliative Medicine Encounter Patient: Valente Lucio MR#: [id number] : 1950 Acct:[id number] Age/Sex: 73 / M Copies to: Perlita Liu APRN, AUTOMOBILE SALES REPRESENTATIVE Deirdre Law APRN~ HPI Date of Visit [...] Marijuana Substance Abuse Comment: 9 Beers daily Edelstein Symptom Assessment Scale Pain: severe, constant pain [...] of liquid supplements and broth, following with procurement professional logistics weekly also; encouraged to get in at least 4 supplement drinks/day Attestation: The above note written by Hilda Dc MA acting as human recorder, note dictated by Deirdre Law APRN, CHILDREN'S COUNSELOR-C Dictated By: Deirdre Law APRN DD/ 35 Signed By: <Electronically signed by MARY LOU Law> 01/26/24 [facility]4 [facility] Work Phone: 1([phone]) 691-869308-02-2024 Progress note Author Deirdre Law [facility] January 23, 2024 1:55pm Note Date/Time January 23, 2024 1:[address] [facility] [address] [place] [address] Palliative Medicine Encounter Patient: Valente Lucio MR#: [id number] : 1950 Acct:[id number] Age/Sex: 73 / M Copies to: Perlita Liu APRN, AUTOMOBILE SALES REPRESENTATIVE Deirdre Law APRN~ HPI Date of Visit [...] Marijuana Substance Abuse Comment: 9 Beers daily Edelstein Symptom Assessment Scale Pain: severe throat pain/ [...] with Zak Coleman RN and Jennifer Antunez ETL ARCHITECT - Oncology to order chest x- rayand modified barium swallow, Valente has med onc f/u on Friday with Dr. Naranjo Attestation: The above note written by Hilda Dc MA acting as human recorder, note dictated by Deirdre Law APRN, CHILDREN'S COUNSELOR-C Dictated By: Deirdre Law APRN DD/ 1305 Signed By: <Electronically signed by MARY LOU Law> 01/23/24 1355 [facility] Work Phone: 1([phone]) 340-703707-29-2024 Progress note Author Deirdre Law [facility] January 19, 2024 2:23pm Note Date/Time January 19, 2024 2:[address] [facility] [address] [place] [address] Palliative Medicine Encounter Patient: Valente Lucio MR#: [id number] : 1950 Acct:[id number] Age/Sex: 73 / M Copies to: Perlita Liu APRN, AUTOMOBILE SALES REPRESENTATIVE Deirdre Law APRN~ HPI Date of Visit [...] Marijuana Substance Abuse Comment: 9 Beers daily Edelstein Symptom Assessment Scale Pain: sore throat/ moderate [...] recorder, note dictated by Deirdre Law APRN, CHILDREN'S COUNSELOR-C Dictated By: Deirdre Law APRN DD/ 0755 Signed By: <Electronically signed by MARY LOU Law> 01/19/24 1423 [facility] Work Phone: 1([phone]) 904-878206-07-2024 [facility] noteLouis [facility] CenterEvaluation [facility]* Diagnosis Onset Date Resolution Status Iron deficiency anemia acute Oropharyngeal dysphagia acut e Stroke acute Depression acute Hyperlipidemia acute Hypertension acute Iron deficiency anemia acute Oropharyngeal dysphagia acut e Restless leg acute Stroke acute Urgency of micturition acute Dysphagia acute [facility] Work Phone: Evaluation note* Diagnosis Onset Date Resolution Status Dysphagia acute Frequent falls acute Stroke acute [facility] Work Phone: evaluation note* Diagnosis Onset Date Resolution Status Dysphagia acute Frequent falls acute Stroke acute Squamous cell carcinoma of hypopharynx acute Cancer associated pain acute Encounter for palliative care acute Squamous cell carcinoma of hypopharynx acute Bronchitis acute [facility] Work Phone: evaluation note* Diagnosis Onset Date Resolution Status Dysphagia acute Frequent falls acute Stroke acute Squamous cell carcinoma of hypopharynx acute Cancer associated pain acute Encounter for palliative care acute Increased oropharyngeal secretions acute Squamous cell carcinoma of hypopharynx acute Bronchitis acute Squamous cell carcinoma of hypopharynx acute Cancer associated pain acute Squamous cell carcinoma of hypopharynx acute [facility] Work Phone: Evaluation note* Diagnosis Onset [...] acute Squamous cell carcinoma of hypopharynx acute [facility] Work Phone: Evaluation note* Diagnosis Onset [...] acute Squamous cell carcinoma of hypopharynx acute [facility] Work Phone: Evaluation note* Diagnosis Onset [...] acute Squamous cell carcinoma of hypopharynx acute [facility] Work Phone: evaluation note* Diagnosis Onset [...] acute Squamous cell carcinoma of hypopharynx acute [facility] Work Phone: Evaluation note* Diagnosis Onset [...] acute Squamous cell carcinoma of hypopharynx acute [facility] Work Phone: Evaluation note* Diagnosis Onset [...] acute Squamous cell carcinoma of hypopharynx acute [facility] Work Phone: evaluation note* Diagnosis Onset [...] acute Squamous cell carcinoma of hypopharynx acute [facility] Work Phone: Evaluation note* Diagnosis Onset [...] acute Squamous cell carcinoma of hypopharynx acute [facility] Work Phone: Evaluation note* Diagnosis Malignant neoplasm of larynx (CMS/HCC)- Primary Malignant neoplasm of larynx, unspecified site History of head and neck radiation documented in this encounter [facility] Healthcare[facility]* Diagnosis Iron deficiency anemia, unspecified [...] hypopharynx, unspecified site documented in this encounter [facility] HealthcareEvaluation note* Diagnosis Iron deficiency anemia, unspecified [...] Dysphagia, oral phase documented in this encounter [facility] HealthcareEvaluation note* Diagnosis Oral phase dysphagia- Primary Dysphagia, oral phase Throat cancer (CMS/HCC) Malignant neoplasm of pharynx, unspecified documented in this encounter [facility] HealthcareEvaluation note* Diagnosis Malignant neoplasm of larynx (CMS/HCC)- Primary Malignant neoplasm of larynx, unspecified site documented in this encounter [facility] HealthcareEvaluation note* Diagnosis Iron deficiency anemia, unspecified [...] and neck radiation documented in this encounter [facility] HealthcareEvaluation note* Diagnosis Iron deficiency anemia, unspecified [...] and neck radiation documented in this encounter [facility] HealthcareEvaluation note* Diagnosis Iron deficiency anemia, unspecified [...] Dysphagia, pharyngoesophageal phase documented in this encounter [facility] [facility] HealthcareEvaluation note* Diagnosis Iron deficiency anemia, unspecified [...] and neck radiation documented in this encounter [facility] HealthcareEvaluation note* Diagnosis Iron deficiency anemia, unspecified [...] artery stenosis Myoclonus documented in this encounter [facility] HealthcareEvaluation note* Diagnosis Iron deficiency anemia, unspecified [...] obstructive pulmonary disease, unspecified COPD type (HCC) RLS (restless legs syndrome)- Primary Restless legs syndrome (RLS) documented in this encounter [facility] HealthcareEvaluation note* Diagnosis Iron deficiency anemia, unspecified iron deficiency anemia type- Primary Abnormal CT of the chest Nonspecific (abnormal) findings on radiological and other examination of other intrathoracic organs RLS (restless legs syndrome) Restless legs syndrome (RLS) Oropharyngeal dysphagia Dysphagia, oropharyngeal phase Chronic obstructive pulmonary disease, unspecified COPD type (HCC) Malignant neoplasm of larynx (HCC)- Primary Malignant neoplasm of larynx, unspecified site History of head and neck radiation documented in this encounter [facility] HealthcareHistory and physical note Author Vinicio Tamez [facility] November 28, 2023 12:15pm Note Date/Time November 28, 2023 12:[address] [facility] [address] [place] [address] Gastroenterology H&P Signed Patient: Valente Lucio MR#: [id number] : 1950 Acct:[id number] Age/Sex: 73 / M Adm Date: 4 Loc: Room: Type: [facility] Attending Dr: Vinicio Tamez MD Copies to: MD Perlita Anne APRN, JANELLE~ Date of Service: 11/28/2023 HISTORY & PHYSICAL: [...] signed by Vinicio Tamez MD> 11/28/23 1215 [facility] Work Phone: Hospital Discharge instructionsAmbulatory Orders* Referral to Gastroenterology Time Frame: 11/11/23, Location: None [facility] Work Phone: Hospital Discharge instructions [...] directed for pain unless a prescription was provided.][facility] Work Phone: Hospital Discharge instructionsAmbulatory Orders* Referral to Neurology Location: None [facility] Work Phone: Progress note Author Sweetie Mirza [facility] Note Date/Time October 11, 2024 11: 34am [facility] [place] [address] Cancer Center Note Signed Patient: Valente Lucio MR#: [id number] : 1950 Acct:[id number] Age/Sex: 74 / M Type: DEP AMB Date of Service: 10/11/24 Copies to: DO Perlita Garcia, CLINICAL CYTOGENETICS DIRECTOR, AUTOMOBILE SALES REPRESENTATIVE~ Assessment & Plan (1) Squamous cell carcinoma [...] tizanidine Allergy (Verified 09/08/24 08:02) muscle stiffness [facility] Medical History Medical History (Updated 09/08/24 @ [...] LAB RESULTS Glucose 88 mg/dL (70-100) 09/06/24 07:09/06/24 BUN 9 mg/dL (7-25) 09/06/24 07:09/06/24 Creatinine 0.48 mg/dL (0.70-1.30) L 09/06/24 07:25 Est GFR (CKD-EPI) > 60.0 mL/Min 09/06/24 07:25 09/06/24 Sodium 136 mmol/L (136-145) 09/06/24 07:25 09/06/24 Potassium 4.1 mmol/L (3.5-5.1) 09/06/24 07:09/06/24 Chloride [...] <Electronically signed by Sweetie Mirza MD> 10/11/24 1139 [facility] Work Phone: reason for visit Narrative* Consultation (Routine) - Closed Specialty Diagnoses / Procedures Referred By Contac t Referred To Contact Neurology Diagnoses Cerebral infarction, unspecified Procedures ND UNLISTED EVALUATION AND MANAGEMENT SERVICE [facility] [address] [place] [phone] Phone: tel: fax: Hali Rolle MD [address] [facility] [address] [place] [id number] Phone: tel: fax: Referral ID Status Reason Start Date Expiration Date Visits Re quested Visits Authorized [id number] Closed 11/08/2024 05/07/2025 1 1 [facility] [...] Date Virtual Follow Up, H+N Review PET Junuar y 2024 3:52pm Follow Up, Review MRI [...] :54am Squamous cell carcinoma of hypopharynx A pri2024 10:47am Chief Complaint Admit Date R13.10 C13.9 Z92.3 August 16, 2024 8:17am Dysphagia September 06, 2024 7:0 0am Dysphagia September 08, 2024 7:1 9am Follow Up, H+N October 11, 2024 10: 47am Neurology Referral November 02, 2024 1:28p m Reason for Visit Admit Date Squamous cell carcinoma of hypopharynx A pril 2024 10:47am Falls frequently November 02, 2024 1:28p m Oropharyngeal dysphagia November 02, 2024 1 :28pm Stroke November 02, 2024 1:28p m Advance Directives Advance Directive Response Recorded Date/ Time Advance Directives No July 12, 2023 12:27pm Advance Directive Response Recorded Date/ Time Advance Directives No July 12, 2023 11:27am Summary Purpose Family History No Family History Records Found Additional Source Comments Care Teams (unrecognized sec tion and content) Business Continuity Planning Director Relationship Specialty Start Date End Date Shaikh Ruiz MD PCP - General Internal Medicine 01/20/23 Team Status: Active Member Role Status Dates Perlita Liu APRN [employer] Primary Care Provider Active Team Status: Inactive Member Role Status Dates Vinicio Tamez MD Attending Provider Active S tart: August 22, 2023 End: August 22, 2023 Perlita Liu APRN [employer]IL[employer]EN'[employer] Primary Care Provider Active Start: August 22, 2023 End: August 22, 2023 Team Status: Inactive Member Role Status Dates Perlita Liu APRN [employer]ILDREN'S COUNSEL[employer]-C Primary Care Provider, Attending Provider Active Start: August 27, 2023 End: August 27, 2023 Team Status: Inactive Member Role Status Dates Perlita Liu APRN CHILDREN'S COUNSELOR-C Primary Care Provider, Attending Provider Active Start: November 11, 2023 End: November 11, 2023 Team Status: Inactive Member Role Status Dates Perlita Liu APRN CHILDR[employer]SEL[employer]-C Primary Care Provider Active Start: November 28, 2023 End: November 28, 2023 Vinicio Tamez MD Attending Provider Active S tart: November 28, 2023 End: November 28, 2023 Team Status: Active Member Role Status Dates Perlita Liu APRN CHILDR[employer]'S COUNSELOR-C Primary Care Provider Active Start: November 27 Vinicio Tamez MD Attending Provider, Other Provider Active Start: November 28, 2023 Team Status: Inactive Member Role Status Dates Perlita Liu APRN [employer]ILDREN'S COUNSEL[employer]-C Primary Care Provider Active Start: December 02, 2023 End: December 02, 2023 Jaswnat Zaidi DO Attending Provider Active S tart: December 02, 2023 End: December 02, 2023 Team Status: Inactive Member Role Status Dates Jaswant Zaidi DO Attending Provider Active S tart: December 05, 2023 End: December 05, 2023 Team Status: Inactive Member Role Status Dates Jaswant Zaidi DO Attending Provider Active S tart: December 08, 2023 End: December 08, 2023 Perlita Liu APRN CHIL[employer] COUNSEL[employer]-C Primary Care Provider Active Start: December 08, 2023 End: December 08, 2023 Team Status: Inactive Member Role Status Dates Perlita Liu APRN CHIL[employer]'S COUNSELOR-C Primary Care Provider Active Start: December 17, 2023 End: December 17, 2023 Sweetie Mirza MD Attending Provider Active Start: December 17, 2023 End: December 17, 2023 Jaswant Zaidi DO Referring Provider Active S tart: December 17, 2023 End: December 17, 2023 Team Status: Active Member Role Status Dates Perlita Liu APRN [employer]IL[employer]EN'S COUNSELOR-C Primary Care Provider Active Start: December 18, 2023 Sweetie Mirza MD Attending Provid er, Other Provider Active Start: December 18, 2023 Jaswant Zaidi DO Referring Provider Active S tart: December 18, 2023 Team Status: Inactive Member Role Status Dates Perlita Liu APRN CHILDREN'S COUNSELOR-C Primary Care Provider Active Start: December 22, 2023 End: December 22, 2023 Nabil Fox II, DO Attending Provider Active Start: December 22, 2023 End: December 22, 2023 Sweetie Mirza MD Referring Provider Active Start: December 22, 2023 End: December 22, 2023 Team Status: Inactive Member Role Status Dates Perlita Liu APRN CHIL[employer]'S COUNSELOR-C Primary Care Provider Active Start: December 23, 2023 End: December 23, 2023 Nabil Fox II, DO Attending Provider Active Start: December 23, 2023 End: December 23, 2023 Team Status: Active Member Role Status Dates Perlita Liu APRN CHILDR[employer]'S COUNSELOR-C Primary Care Provider Active Start: December 29 Sweetie Mirza MD Attending [facility] er, Other Provider Active Start: December 30, 2023 Jaswant Zaidi DO Referring Provider Active S tart: December 30, 2023 Team Status: Active Member Role Status Dates Perlita Liu APRN CHILDR[employer]'S COUNSELOR-C Primary Care Provider, Attending Provider Active Start: December 31, 2023 Team Status: Active Member Role Status Dates Perlita Liu APRN CHIL[employer] COUNSELOR-C Primary Care Provider Active Start: January 01, 2024 Sweetie Mirza MD Attending Provider Active Start: January 01, 2024 Team Status: Active Member Role Status Dates Perlita Liu APRN CHILDREN'S COUNSELOR-C Primary Care Provider Active Start: January 06, 2024 Jaswant Zaidi DO Referring Provider Active S tart: January 06, 2024 Nabil Fox II, DO Active S tart: January 06, 2024 Sweetie Mirza MD Attending [facility] er, Other Provider Active Start: January 06, 2024 Team Status: Inactive Member Role Status Dates Perlita Liu APRN CHILDR[employer] COUNSELOR-C Primary Care Provider Active Start: January 07, 2024 End: January 07, 2024 Deirdre Law APRN Attending Provider Active Start: January 07, 2024 End: January 07, 2024 Team Status: Inactive Member Role Status Dates Perlita Liu APRN CHILDREN'S COUNSELOR-C Primary Care Provider, Attending Provider Active Start: January 07, 2024 End: January 07, 2024 Team Status: Active Member Role Status Dates Perlita Liu APRN CHILDREN'S COUNSELOR-C Primary Care Provider Active Start: January 07, 2024 Jaswant Zaidi , Referring Provider Active S tart: January 07, 2024 Nabil Fox II, Active S tart: January 07, 2024 Sweetie Mirza MD Attending Provider Active Start: January 07, 2024 Team Status: Inactive Member Role Status Dates Perlita Liu APRN CHILDREN'S COUNSELOR-C Primary Care Provider Active Start: January 07, 2024 End: January 07, 2024 Gena Lyn APRN Attending Provider Acti ve Start: January 07, 2024 End: January 07, 2024 Team Status: Active Member Role Status Dates Perlita Liu APRN CHIL[employer] COUNSELOR-C Primary Care Provider Active Start: January 07, 2024 Deirdre Law APRN Attending Prov ider, Other Provider Active Start: January 07, 2024 Team Status: Inactive Member Role Status Dates Perlita Liu APRN CHILDREN'S COUNSELOR-C Primary Care Provider Active Start: January 12, 2024 End: January 12, 2024 Deirdre Law APRN Attending Provider Active Start: January 12, 2024 End: January 12, 2024 Team Status: Active Member Role Status Dates Perlita Liu APRN CHIL[employer]'S COUNSELOR-C Primary Care Provider Active Start: January 12, 2024 Jaswant Zaidi , Referring Provider Active S tart: January 12, 2024 Nabil Fox II, DO Attending Provider Active Start: January 12, 2024 Team Status: Active Member Role Status Dates Perlita Liu APRN CHILDR[employer]'S COUNSELOR-C Primary Care Provider Active Start: January 12, 2024 Deirdre Law APRN Attending Prov ider, Other Provider Active Start: January 12, 2024 Team Status: Active Member Role Status Dates Perlita Liu APRN CHILDR[employer]'S COUNSELOR-C Primary Care Provider Active Start: January 13, 2024 Jaswant Zaidi , Referring Provider Active S tart: January 13, 2024 Nabil Fox II, DO Other Provider Active Start: January 13, 2024 Sweetie Mirza MD Attending Provider Active Start: January 13, 2024 Team Status: Active Member Role Status Dates Perlita Liu APRN CHILDREN'S COUNSELOR-C Primary Care Provider Active Start: January 15, 2024 Sweetie Mirza MD Attending Provider Active Start: January 15, 2024 Team Status: Inactive Member Role Status Dates Perlita Liu APRN CHILDREN'S COUNSELOR-C Primary Care Provider Active Start: January 19, 2024 End: January 19, 2024 Deirdre Law APRN Attending Provider Active Start: January 19, 2024 End: January 19, 2024 Team Status: Active Member Role Status Dates Perlita Liu APRN CHILDREN'S COUNSELOR-C Primary Care Provider Active Start: January 19, 2024 Deirdre Law APRN Attending Prov ider, Other Provider Active Start: January 19, 2024 Team Status: Active Member Role Status Dates Perlita Liu APRN CHILDREN'S COUNSELOR-C Primary Care Provider Active Start: January 19, 2024 Jaswant Zaidi , Referring Provider Active S tart: January 19, 2024 Nabil Fox II, DO Attending Provider Active Start: January 19, 2024 Team Status: Active Member Role Status Dates Perlita Liu APRN CHILDREN'S COUNSELOR-C Primary Care Provider Active Start: January 21, 2024 Jaswant Zaidi , Referring Provider Active S tart: January 21, 2024 Nabil Fox II, DO Other Provider Active Start: January 21, 2024 Sweetie Mirza MD Attending Provider Active Start: January 21, 2024 Team Status: Inactive Member Role Status Dates Perlita Liu APRN CHILDREN'S COUNSELOR-C Primary Care Provider Active Start: January 23, 2024 End: January 23, 2024 Deirdre Law APRN Attending Provider Active Start: January 23, 2024 End: January 23, 2024 Team Status: Active Member Role Status Dates Perlita Liu APRN CHILDREN'S COUNSELOR-C Primary Care Provider Active Start: January 23, 2024 Deirdre Law APRN Attending Prov ider, Other Provider Active Start: January 23, 2024 Team Status: Active Member Role Status Dates Perlita Liu APRN CHILDREN'S COUNSELOR-C Primary Care Provider Active Start: January 23, 2024 Jaswant Zaidi , Referring Provider Active S tart: January 23, 2024 Nabil Fox II, DO Attending Provider Active Start: January 23, 2024 Team Status: Inactive Member Role Status Dates Perlita Liu APRN CHILDREN'S COUNSELOR-C Primary Care Provider Active Start: January 26, 2024 End: January 26, 2024 Deirdre Law APRN Attending Provider Active Start: January 26, 2024 End: January 26, 2024 Team Status: Active Member Role Status Dates Perlita Liu APRN CHILDREN'S COUNSELOR-C Primary Care Provider Active Start: January 26, 2024 Jaswant Zaidi , Referring Provider Active S tart: January 26, 2024 Nabil Fox II, DO Attending Provider Active Start: January 26, 2024 Team Status: Active Member Role Status Dates Perlita Liu APRN CHILDREN'S COUNSELOR-C Primary Care Provider Active Start: January 26, 2024 Deirdre Law APRN Attending Prov ider, Other Provider Active Start: January 26, 2024 Team Status: Inactive Member Role Status Dates Perlita Liu APRN CHILDREN'S COUNSELOR-C Primary Care Provider Active Start: January 26, 2024 End: January 26, 2024 Nabil Fox II, DO Attending Provider Active Start: January 26, 2024 End: January 26, 2024 Team Status: Active Member Role Status Dates Perlita Liu APRN CHILDREN'S COUNSELOR-C Primary Care Provider Active Start: January 20, 2024 Jaswant Zaidi , Referring Provider Active S tart: January 20, 2024 Nabil Fox II, DO Other Provider Active Start: January 20, 2024 Sweetie Mirza MD Attending Provider Active Start: January 20, 2024 Team Status: Active Member Role Status Dates Perlita Liu APRN CHILDR[employer]'S COUNSELOR-C Primary Care Provider Active Start: January 28, 2024 Jaswant Zaidi , Referring Provider Active S tart: January 28, 2024 Nabil Fox II, DO Other Provider Active Start: January 28, 2024 Sweetie Mizra MD Attending Provider Active Start: January 28, 2024 Team Status: Active Member Role Status Dates Perlita Liu APRN CHILDREN'S COUNSELOR-C Primary Care Provider Active Start: January 29, 2024 Sweetie Mirza MD Attending Provider Active Start: January 29, 2024 Team Status: Inactive Member Role Status Dates Perlita Liu APRN CHILDREN'S COUNSELOR-C Primary Care Provider Active Start: February 02, 2024 End: February 02, 2024 Deirdre Law APRN Attending Provider Active Start: February 02, 2024 End: February 02, 2024 Team Status: Active Member Role Status Dates Perlita Liu APRN CHILDREN'S COUNSELOR-C Primary Care Provider Active Start: February 02, 2024 Jaswant Zaidi DO Referring Provider Active S tart: February 02, 2024 Nabil Fox II, DO Attending Provider Active Start: February 02, 2024 Team Status: Active Member Role Status Dates Perlita Liu APRN CHILDR[employer]'S COUNSELOR-C Primary Care Provider Active Start: January Deirdre Law APRN Attending Prov ider, Other Provider Active Start: February 02, 2024 Team Status: Inactive Member Role Status Dates Perlita Liu APRN CHILDREN'S COUNSELOR-C Primary Care Provider Active Start: February 03, 2024 End: February 03, 2024 Shanelle Mallory DO Attending Provider Active Start: February 03, 2024 End: February 03, 2024 Team Status: Active Member Role Status Dates Perlita Liu APRN CHILDREN'S COUNSELOR-C Primary Care Provider Active Start: January 05, 2024 Jaswant Zaidi DO Referring Provider Active S tart: January 05, 2024 Nabil Fox II, DO Active S tart: January 05, 2024 Sweetie Mirza MD Attending Provid er, Other Provider Active Start: January 05, 2024 Team Status: Active Member Role Status Dates Perlita Liu APRN CHILDREN'S COUNSELOR-C Primary Care Provider Active Start: February 09, 2024 Jaswant Zaidi DO Referring Provider Active S tart: February 09, 2024 Nabil Fox II, DO Attending Provider Active Start: February 09, 2024 Team Status: Inactive Member Role Status Dates Perlita Liu APRN CHILDR[employer]'S COUNSELOR-C Primary Care Provider Active Start: February 09, 2024 End: February 09, 2024 Deirdre Law APRN Attending Provider Active Start: February 09, 2024 End: February 09, 2024 Team Status: Active Member Role Status Dates Perlita Liu APRN CHILDR[employer] COUNSELOR-C Primary Care Provider Active Start: January Deirdre Law APRN Attending Prov ider, Other Provider Active Start: February 09, 2024 Team Status: Inactive Member Role Status Dates Perlita Liu APRN CHILDREN'S COUNSELOR-C Primary Care Provider Active Start: February 09, 2024 End: February 09, 2024 Nabil Fox II, DO Attending Provider Active Start: February 09, 2024 End: February 09, 2024 Team Status: Active Member Role Status Dates Perlita Liu APRN CHILDR[employer]'S COUNSELOR-C Primary Care Provider Active Start: January 12, 2024 Jaswant Zaidi DO Referring Provider Active S tart: January 12, 2024 Nabil Fox II, DO Other Provider Active Start: January 12, 2024 Sweetie Mirza MD Attending Provider Active Start: January 12, 2024 Team Status: Active Member Role Status Dates Perlita Liu APRN CHILDREN'S COUNSELOR-C Primary Care Provider Active Start: January 19, 2024 Jaswant Zaidi DO Referring Provider Active S tart: January 19, 2024 Nabil Fox II, DO Other Provider Active Start: January 19, 2024 Sweetie Mirza MD Attending Provider Active Start: January 19, 2024 Team Status: Active Member Role Status Dates Perlita Liu APRN CHILDR[employer]'S COUNSELOR-C Primary Care Provider Active Start: January 26, 2024 Jaswant Zaidi DO Referring Provider Active S tart: January 26, 2024 Nabil Fox II, DO Other Provider Active Start: January 26, 2024 Sweetie Mirza MD Attending Provider Active Start: January 26, 2024 Team Status: Active Member Role Status Dates Perlita Liu APRN CHILDR[employer] COUNSELOR-C Primary Care Provider Active Start: January Jaswant Zaidi , Referring Provider Active S tart: February 11, 2024 Nabil Fox II, DO Active S tart: February 11, 2024 Sweetie Mirza MD Attending [facility] er, Other Provider Active Start: February 11, 2024 Team Status: Inactive Member Role Status Dates Perlita Liu APRN CHILDR[employer]'S COUNSELOR-C Primary Care Provider Active Start: February 18, 2024 End: February 18, 2024 Deirdre Law APRN Attending Provider Active Start: February 18, 2024 End: February 18, 2024 Team Status: Active Member Role Status Dates Perlita Liu APRN CHILDR[employer] COUNSELOR-C Primary Care Provider Active Start: February 18, 2024 Jaswant Zaidi DO Referring Provider Active S tart: February 18, 2024 Nabil Fox II, DO Active S tart: February 18, 2024 Sweetie Mirza MD Attending Provider Active Start: February 18, 2024 Team Status: Active Member Role Status Dates Perlita Liu APRN CHIL[employer] COUNSELOR-C Primary Care Provider Active Start: January Jaswant Zaidi , Referring Provider Active S tart: February 18, 2024 Nabil Fox II, DO Active S tart: February 18, 2024 Sweetie Mirza MD Attending [facility] er, Other Provider Active Start: February 18, 2024 Team Status: Inactive Member Role Status Dates Perlita Liu APRN CHILDR[employer] COUNSELOR-C Primary Care Provider Active Start: February 18, 2024 End: February 18, 2024 Gena Lyn APRN Attending Provider Acti ve Start: February 18, 2024 End: February 18, 2024 Team Status: Active Member Role Status Dates Perlita Liu APRN CHILDR[employer] COUNSELOR-C Primary Care Provider Active Start: January Deirdre Law APRN Attending Prov ider, Other Provider Active Start: February 18, 2024 Team Status: Inactive Member Role Status Dates Perlita Liu APRN CHILDR[employer]SELOR-C Primary Care Provider Active Start: February 232023 End: February 24, 2024 Deirdre Law APRN Attending Provider Active Start: February 24, 2024 End: February 24, 2024 Team Status: Active Member Role Status Dates Perlita Liu APRN CHILDR[employer] COUNSELOR-C Primary Care Provider Active Start: February 232023 Jaswant Zaidi DO Referring Provider Active S tart: February 24, 2024 Nabil Fox II, DO Active S tart: February 24, 2024 Sweetie Mirza MD Attending Provider Active Start: February 24, 2024 Team Status: Active Member Role Status Dates Perlita Liu APRN CHILDR[employer] COUNSELOR-C Primary Care Provider Active Start: January Jaswant Zaidi DO Referring Provider Active S tart: February 16, 2024 Nabil Fox II, DO Active S tart: February 16, 2024 Sweetie Mirza MD Attending [facility] er, Other Provider Active Start: February 16, 2024 Team Status: Active Member Role Status Dates Perlita Liu APRN CHILDR[employer]SELOR-C Primary Care Provider Active Start: February 232023 Jaswant Zaidi DO Referring Provider Active S tart: February 24, 2024 Nabil Fox II, DO Active S tart: February 24, 2024 Sweetie Mirza MD Attending [facility] er, Other Provider Active Start: February 24, 2024 Team Status: Active Member Role Status Dates Perlita Liu APRN [employer]IL[employer]SELOR-C Primary Care Provider Active Start: February 232023 Deirdre Law APRN Attending Prov ider, Other Provider Active Start: February 24, 2024 Team Status: Active Member Role Status Dates Perlita Liu APRN [employer]IL[employer]-C Primary Care Provider Active Start: February 252023 Sweetie Mirza MD Attending Provider Active Start: February 26, 2024 Team Status: Inactive Member Role Status Dates Perlita Liu APRN [employer]IL[employer]SEL[employer]-C Primary Care Provider Active Start: February 262023 End: February 27, 2024 Nabil Fox II, DO Attending Provider Active Start: February 27, 2024 End: February 27, 2024 Team Status: Inactive Member Role Status Dates Perlita Liu APRN CHILDR[employer] COUNSELOR-C Primary Care Provider, Attending Provider Active Start: March 04, 2024 End: March 04, 2024 Team Status: Inactive Member Role Status Dates Perlita Liu APRN CHILDR[employer]SEL[employer]-C Primary Care Provider Active Start: March 29, 2024 End: March 29, 2024 Deirdre Law APRN Attending Provider Active Start: March 29, 2024 End: March 29, 2024 Team Status: Active Member Role Status Dates Perlita Liu APRN CHILDR[employer] COUNSELOR-C Primary Care Provider Active Start: March Deirdre Law APRN Attending Prov ider, Other Provider Active Start: March 29, 2024 Team Status: Active Member Role Status Dates Perlita Liu APRN CHILDR[employer] COUNSELOR-C Primary Care Provider Active Start: March 29, 2024 Jaswant Zaidi DO Referring Provider Active S tart: March 29, 2024 Nabil Fox II, Attending Provider Active Start: March 29, 2024 Sweetie Mirza MD Active Star t: March 29, 2024 Business Continuity Planning Director Relationship Specialty Start Date End Date Perlita Liu NP [address] [place] [address] [place] [address] PCP - General Family Medicine 12/02/23 Vinicio Tamez MD [address] [phone] Referring Physician Gastroenterology 12/15/23 Jaswant Zaidi DO [address] [place] [address] Otolaryngology 12/15/23 Business Continuity Planning Director Relationship Specialty Start Date End Date Perlita Liu NP [address] [place] [address] [place] [address] PCP - General Family Medicine 12/02/23 Vinicio Tamez MD [address] [phone] Referring Physician Gastroenterology 12/15/23 Jaswant Zaidi DO [address] [place] [address] Otolaryngology 12/15/23 Business Continuity Planning Director Relationship Specialty Start Date End Date Perlita Liu NP [address] [place] [address], [place] [address] PCP - General Family Medicine 12/02/23 Vinicio Tamez MD [address] [place] [phone] Referring Physician Gastroenterology 12/15/23 Jaswant Zaidi DO [address] [place] [address] Otolaryngology 12/15/23 Business Continuity Planning Director Relationship Specialty Start Date End Date Perlita Liu NP [address] [place] [address], [place] [address] PCP - General Family Medicine 12/02/23 Vinicio Tamez MD [address] [phone] Referring Physician Gastroenterology 12/15/23 Jaswant Zaidi DO [address] [place] [address] Otolaryngology 12/15/23 Business Continuity Planning Director Relationship Specialty Start Date End Date Perlita Liu NP [address] [place] [address] PCP - General Family Medicine 12/02/23 Vinicio Tamez MD [address] [place] [phone] Referring Physician Gastroenterology 12/15/23 Jaswant Zaidi DO [address] [place] [address] Otolaryngology 12/15/23 Business Continuity Planning Director Relationship Specialty Start Date End Date Perlita Liu NP [address] [place] [address] PCP - General Family Medicine 12/02/23 Vinicio Tamez MD [address] [place] [phone] Referring Physician Gastroenterology 12/15/23 Jaswant Zaidi DO [address] [place] [address] Otolaryngology 12/15/23 Business Continuity Planning Director Relationship Specialty Start Date End Date Perlita Liu NP [address] [place] [address] PCP - General Family Medicine 12/02/23 Vinicio Tamez MD [address] [place] [address] [phone] Referring Physician Gastroenterology 12/15/23 Jaswant Zaidi DO [address] [place] [address] Otolaryngology 12/15/23 Business Continuity Planning Director Relationship Specialty Start Date End Date Perlita Liu NP [address] [place] [address], [place] [address] PCP - General Family Medicine 12/02/23 Vinicio Tamez MD [address] [place] [address] [phone] Referring Physician Gastroenterology 12/15/23 Jaswant Zaidi DO [address] [place] [address] Otolaryngology 12/15/23 Business Continuity Planning Director Relationship Specialty Start Date End Date Perlita Liu NP [address] [place] [address], [place] [address] PCP - General Family Medicine 12/02/23 Vinicio Tamez MD [address] [place] [address] [phone] Referring Physician Gastroenterology 12/15/23 Jaswant Zaidi DO [address] [place] [address] Otolaryngology 12/15/23 Business Continuity Planning Director Relationship Specialty Start Date End Date Perlita Liu NP [address] [place] [address] [place] [address] PCP - General Family Medicine 12/02/23 Vinicoi Tamez MD [address] [phone] Referring Physician Gastroenterology 12/15/23 Jaswant Zaidi DO [address] [place] [address] Otolaryngology 12/15/23 Business Continuity Planning Director Relationship Specialty Start Date End Date Perlita Liu NP [address] [place], [place] [address], [place] [address] PCP - General Family Medicine 12/02/23 Vinicio Tamez MD [address] [place] [phone] Referring Physician Gastroenterology 12/15/23 Jaswant Zaidi DO [address] [place] [address] Otolaryngology 12/15/23 Business Continuity Planning Director Relationship Specialty Start Date End Date Perlita Liu NP [address] [place] [address] [place] [address] PCP - General Family Medicine 12/02/23 Vinicio Tamez MD [address] [phone] Referring Physician Gastroenterology 12/15/23 Jaswant Zaidi DO [address] [place] [address] Otolaryngology 12/15/23 Team Status: Inactive Member Role Status Dates Perlita Liu APRN CHILDREN'S COUNSELOR-C Primary Care Provider Active Start: June 28, 2024 End: June 28, 2024 Sweetie Mirza MD Attending Provider Active Start: June 28, 2024 End: June 28, 2024 Team Status: Inactive Member Role Status Dates Perlita Liu APRN CHILDREN'S COUNSELOR-C Primary Care Provider Active Start: June End: July 06, 2024 Sweetie Mirza MD Attending Provider Active Start: July 06, 2024 End: July 06, 2024 Team Status: Active Member Role Status Dates Perlita Liu APRN CHILDREN'S COUNSELOR-C Primary Care Provider Active Start: June Jaswant Zaidi DO Referring Provider Active S tart: July 06, 2024 Nabil Fox II, DO Attending Provider Active Start: July 06, 2024 Sweetie Mirza MD Active Star t: July 06, 2024 Team Status: Inactive Member Role Status Dates Perlita Liu APRN CHILDREN'S COUNSELOR-C Primary Care Provider Active Start: June End: July 15, 2024 Vinicio Tamez MD Attending Provider Active S tart: July 15, 2024 End: July 15, 2024 Team Status: Inactive Member Role Status Dates Perlita Liu APRN CHILDREN'S COUNSELOR-C Primary Care Provider, Attending Provider Active Start: July 30, 2024 End: July 30, 2024 Team Status: Inactive Member Role Status Dates Perlita Liu APRN CHILDREN'S COUNSELOR-C Primary Care Provider Active Start: August 162024 End: August 16, 2024 Jaswant Zaidi DO Attending Provider Active S tart: August 16, 2024 End: August 16, 2024 Team Status: Inactive Member Role Status Dates Perlita Liu APRN CHILDREN'S COUNSELOR-C Primary Care Provider Active Start: September 06, 2024 End: September 06, 2024 Jaswant Zaidi DO Attending Provider Active S tart: September 06, 2024 End: September 06, 2024 Team Status: Inactive Member Role Status Dates Perlita Liu APRN CHILDREN'S COUNSELOR-C Primary Care Provider Active Start: September 08, 2024 End: September 08, 2024 Jaswant Zaidi DO Attending Provider Active S tart: September 08, 2024 End: September 08, 2024 Business Continuity Planning Director Relationship Specialty Start Date End Date Perlita Liu NP [address] [place] [address] PCP - General Family Medicine 12/02/23 Vinicio Tamez MD [address] [place] [address] [phone] Referring Physician Gastroenterology 12/15/23 Jaswant Zaidi DO [address] [place] [address] Otolaryngology 12/15/23 Team Status: Inactive Member Role Status Dates Perlita Liu APRN CHILDREN'S COUNSELOR-C Primary Care Provider Active Start: October 11, 2024 End: October 11, 2024 Sweetie Mirza MD Attending Provider Active Start: October 11, 2024 End: October 11, 2024 Nabil Fox II, DO Attending Provider Active Start: October 11, 2024 Sweetie Mirza MD Active Star t: October 11, 2024 Business Continuity Planning Director Relationship Specialty Start Date End Date Perlita Liu NP [address] [place] [address] PCP - General Family Medicine 12/02/23 Vinicio Tamez MD [address] [place] [address] [place] [address] Referring Physician Gastroenterology 12/15/23 Jaswant Zaidi DO [address] [place] [address] Otolaryngology 12/15/23 Business Continuity Planning Director Relationship Specialty Start Date End Date Perlita Liu NP [address] [place] [address] [place] [address] PCP - General Family Medicine 12/02/23 Vinicio Tamez MD [address] [place] [address] [place] [address] Referring Physician Gastroenterology 12/15/23 Jaswant Zaidi DO [address] [place] [address] Otolaryngology 12/15/23 Team Status: Inactive Member Role Status Dates Perlita Liu APRN CHILDREN'S COUNSELOR-C Primary Care Provider, Attending Provider Active Start: November 02, 2024 End: November 02, 2024 Business Continuity Planning Director Relationship Specialty Start Date End Date Perlita Liu NP [address] [place] [address] [place] [address] PCP - General Family Medicine 12/02/23 Vinicio Tamez MD [address] [place] [address] [place] [address] Referring Physician Gastroenterology 12/15/23 Jaswant Zaidi DO [address] [place] [address] Otolaryngology 12/15/23 Business Continuity Planning Director Relationship Specialty Start Date End Date Perlita Liu NP [address] [place] [address] PCP - General Family Medicine 12/02/23 Vinicio Tamez MD [address] [place], [place] [phone] Referring Physician Gastroenterology 12/15/23 Jaswant Zaidi DO [address] [place] [address] Otolaryngology 12/15/23 Business Continuity Planning Director Relationship Specialty Start Date End Date Perlita Liu NP [address] [place], [place] [phone] PCP - General Family Medicine 12/02/23 Vinicio Tamez MD [address] [place], [place] [phone] Referring Physician Gastroenterology 12/15/23 Jaswant Zaidi DO [address] [place] [address] Otolaryngology 12/15/23 Business Continuity Planning Director Relationship Specialty Start Date End Date Perlita Liu NP [address] [place], [place] [phone] PCP - General Family Medicine 12/02/23 Vinicio Tamez MD [address] [place] [address] Referring Physician Gastroenterology 12/15/23 Jaswant Zaidi DO [address] [place] [place] [address] Otolaryngology 12/15/23 Business Continuity Planning Director Relationship Specialty Start Date End Date Perlita Liu NP [address] [place], [place] [address], [place] [address] PCP - General Family Medicine 12/02/23 Vinicio Tamez MD [address] [place] [address] [place] [address] Referring Physician Gastroenterology 12/15/23 Jaswant Zaidi DO [address] [place] [address] Otolaryngology 12/15/23 Business Continuity Planning Director Relationship Specialty Start Date End Date Perlita Liu NP [address] [place] [address] [place] [address] PCP - General Family Medicine 12/02/23 Vinicio Tamez MD [address] [place] [address] [place] [address] Referring Physician Gastroenterology 12/15/23 Jaswant Zaidi DO [address] [place] [address] Otolaryngology 12/15/23 Business Continuity Planning Director Relationship Specialty Start Date End Date Perlita Liu NP [address] [facility] [place] [address] PCP - General Family Medicine 12/02/23 Vinicio Tamez MD [address] [facility] [place] [address] Referring Physician Gastroenterology 12/15/23 Jaswant Zaidi DO [address] [place] [address] Otolaryngology 12/15/23 Goals (unrecognized section and content) Goals may be documented in a n alternate section Reason for Visit (unrecogniz ed section and content) Reason Comments Cancer Reason Comments Cancer 6 week recheck CA Reason Comments Peg tube removal Reason Comments 1st pow G-tube placement Reason Comments Cancer 1 month cailin Reason Comments Cancer 6 week cailin Reason Comments Dysphagia Reason Comments Cerebrovascular Accident (unrecognized sect ion and content) No Status Records FoundNo Status Records Found INFORMATION SOURCE (unrecogn ized section and content) DATE CREATED AUTHOR 12/08/2024 [facility] DATE CREATED AUTHOR AUTHOR'S TYRONE CROWELL 03/01/2025 [facility] FOR RECORDS PERTAINING TO PATIENTS WHO [...] BE BASED ON THE PRIMARY CLINICAL RECORDS. [employer] provides no warranty or guarantee of the accuracy or completeness of information in this document.
[2025-03-08 17:08] LABS: Anion Gap 12.4; Blood Urea Nitrogen 7.0 mg/dL (7.0-18.0); Calcium 8.4 mg/dL (8.5-10.1); Carbon Dioxide 25.5 mmol/L (21.0-32.0); Chloride 103 mmol/L (98-107); Estimated GFR (African America >60 (>=60 mL/min/1.73m^2); Estimated GFR (Non-African Ame >60 (>=60 mL/min/1.73m^2); Glucose 90 mg/dL (74-106); Potassium 3.9 mmol/L (3.5-5.1); Sodium 137 mmol/L (136-145)
[2025-03-08 17:23] LABS: Basophils Abs Manual 0.14 10^3/uL (0.00-0.10); Basophils Percent Manual 2.0 % (0.2-2.0); Eosinophils Absolute Manual 0.28 10^3/uL (0.00-0.70); Eosinophils Percent Manual 4.0 % (0.9-7.0); Lymphocytes Absolute Manual 0.28 10^3/uL (1.20-3.80); Lymphocytes Percent Manual 4.0 % (20.5-60.0); Monocytes Absolute Manual 0.28 10^3/uL (0.30-0.80); Monocytes Percent Manual 4.0 % (1.7-12.0); Segmented Neut Absolute Manual 6.02 10^3/uL (1.4-6.5); Segmented Neutrophils % Manual 86.0 (43.0-75.0)
[2025-03-08] MEDS: CEFAZOLIN SODIUM/DEXTROSE,ISO 1 GM/50 ML PREMIX IV (17:51)
[2025-03-08] MEDS: LIDOCAINE HCL 1% 100 MG/10 ML MDV INJ (17:52)
== END 2025-03-08 18:56 | disposition home or self-care (01) ==
PROVIDERS: Physician Assistant; Emergency Provider Emergency Medicine; PCP Nurse Practitioner Family
DX: S01.112A Laceration without foreign body of left eyelid and periocular area, initial encounter (principal); S61.412A Laceration without foreign body of left hand, initial encounter; S51.012A Laceration without foreign body of left elbow, initial encounter; Z79.82 Long term (current) use of aspirin; I69.398 Other sequelae of cerebral infarction; S09.8XXA Other specified injuries of head, initial encounter; W18.39XA Other fall on same level, initial encounter; Z87.891 Personal history of nicotine dependence; Z23 Encounter for immunization; F10.129 Alcohol abuse with intoxication, unspecified; Y90.4 Blood alcohol level of 80-99 mg/100 ml
CPT/HCPCS: 12013; 36415; 70450; 72125; 76376; 80048; 80320; 85007; 85027; 90471; 90715; 96365; 99285; J0690

== ENCOUNTER 2025-03-24 09:21 | Outpatient (OUT) | payer MEDICARE, SELFPAY ==
--- OUTSIDE RECORDS SUMMARY | 2025-03-08 10:15 | XMS_ITS ---
Author Name Auto Generated Organization [place] Support Name Relationship Address Phone ISIDORO LUCIO Next of Kin [address] [place] [address] + ISIDORO LUCIO Next of Kin [address] [facility] [place] [address] + ISIDORO LUCIO Next of Kin [address] [facility] [place] [place] [address] + Isidoro Lucio Next of Kin [address] [place] [address] + ISIDORO LUCIO Next of Kin [address] [facility] [place] [place] [address] + ISIDORO LUCIO Next of Kin [address] [place] [address] + ISIDORO LUCIO Next of Kin [address] [place] [address] + ISIDORO LUCIO Next of Kin [address] [facility] [place] [place] [address] + Isidoro Lucio Next of Kin [address] [place] [address] + Isidoro Lucio Next of Kin [address] [place] [address] + ISIDORO LUCIO Next of Kin [address] [facility] [place] [address] + Isidoro Lucio Next of Kin [address] [place] [address] + SCHWLUDYR, ISIDORO Next of Kin [address] [place] [address] + ISIDORO LUCIO Next of Kin [address] [facility] [place] [address] + ISIDORO LUCIO Next of Kin [address] [facility] [place] [address] + ISIDORO LUCIO Next of Kin [address] [facility] [place] [address] + ISIDORO LUCIO Next of Kin [address] [facility] [place] [place] [address] + Isidoro Lucio Next of Kin [address] [facility] [place] [address] + Care Team Providers 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 Role Phone Jaswant Zaidi Admitting Unavailable Murcek, Jaswant Attending Unavailable Rohrbacher, [facility] Primary Care Unavailable Murcek, Jaswant Admitting Unavailable Murcek, Jaswant Attending Unavailable Rohrbacher, [facility] Care [facility] Unavailable Murcek Jaswant Referring Unavailable Adamowicz II, Nabil Castaneda Admitting Unavaila ble Adamowicz II, Nabil Castaneda Attending Unavaila ble Murcek, Jaswant Admitting Unavailable Murcek, Jaswant Attending Unavailable Rohrbacher, [facility] Primary Care Unavailable Deirdre Law Attending Unavailable Rohrbacher, [facility] Primary Care Unavailable Deirdre Law Admitting Unavailable MURCEK, JASWANT W Attending Unavailable MARCIAL BOONE Referring Unavailable MURCEKJASWANT W Attending Unavailable MURCEJASWANT Saxena W Attending Unavailable MURCEKJASWANT W Attending Unavailable MURCEKJASWANT W Attending Unavailable BRYAN CHRISTIAN Attending Unavailable MURCEK, JASWANT W Attending Unavailable MURCEK, JASWANT W Attending Unavailable MARCIAL BOONE Referring Unavailable SHANELLE MALLORY Attending Unavailable JASWANT ZAIDI W Attending Unavailable MURCEKJASWANT Attending Unavailable HALI GARCIA Attending Unavailable MURCEK, JASWANT Aguero Attending Unavailable PROBLEMS DATE TYPE CONDITION / CODE ATTENDING STATUS TIM FORMAN 12/06/2024 Unknown 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) Ruddy LEAL Nabil Castaneda [facility] 09/08/2024 Unknown Dysphagia, pharyngoesophageal phase / R13.14(ICD-10) Dyan [facility] 09/06/2024 Unknown Encounter for preprocedural laboratory examination / Z01.812(ICD-10) Dyan [facility] 08/16/2024 Unknown Dysphagia, unspe cified / R13.10(ICD-10) Dyan [facility] 08/16/2024 Unknown Malignant neopla sm of hypopharynx, unspecified / C13.9(ICD-10) Dyan [facility] 08/16/2024 Unknown Personal history of irradiation / Z92.3(ICD-10) [facility]24 Unknown 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) Deirdre Law [facility] PROCEDURES No Procedure Records Found RESULTS L Observed: 09/08/2024 9:36 AM Status: Kaela Source: [facility] ----- ------- Specimen: [id number] Received: 09/08/24 Status: JHONY Rowley Num: [id number] Spec Type: Surgical Subm Dr: Jaswant Zaidi DO Tissues: A Esophagus Biopsy (ESO BX 18) B Esophagus Biopsy (ESO BX 16) Procedures: HE/Favian, Gross/Micro L4/2 ----- ------- Age/ Patient Sex Location Account Attending Physician ----- ------- Valente Lucio 74/M MS [id number] Jaswant Zaidi DO ----- ------- SPEC NUM: [id number] RECD: 09/08/24 STATUS: JHONY RAE NUM: [id number] GEORGE: 09/08/[address] [facility] [address]: Jaswant Zaidi DO ENTERED: 09/08/24-[address]: MARY KAY TYPE: Surgical DEPT: S ENTERED BY: [id number] RECV BY: [id number] ORDERED: HE/4, Gross/Micro L4/2 ORDERED: HE/4, Gross/Micro L4/2 Pathological Diagnosis A. Esophagus at 18 cm (mucosal biopsies): Reactive squamous mucosa No active inflammation, glandular epithelium, or dysplasia seen B. Esophagus at 16 cm (mucosal biopsies): Reactive squamous mucosa, fragmented with hemorrhage No active inflammation, glandular epithelium, or dysplasia seen Note: The previous malignant biopsies were reviewed ([id number]). Clinical Information Dysphagia Gross Description Part A is received in formalin labeled with the patients name, date of , and esophageal biopsy 18 cm is a pale barry, focally erythematous, feathery, 0.4 cm in greatest dimension tissue bit. The specimen is entirely submitted in a single cassette. (1, ns, [id number] [id number] A) JG Part B is received in formalin labeled with the patients name, date of , and esophageal biopsy 16 cm is a pale barry, focally erythematous, feathery, 0.3 cm in greatest dimension tissue bit. The specimen is filtered and entirely submitted in a single cassette. ----- ------- Specimen: [id number] Received: 09/08/24 Status: JHONY Rowley Num: [id number] Spec Type: Surgical Subm Dr: Jaswant Zaidi DO Tissues: A Esophagus Biopsy (ESO BX 18) B Esophagus Biopsy (ESO BX 16) Procedures: HE/Favian, Gross/Micro L4/2 ----- ------- Patient: Valente Lucio [id number] (Continued) ----- ------- Specimen: [id number] Received: 09/08/24 (Continued) Gross Description (Continued) Signed (signature on file) Cisco Wahl Jr., 09/09/24 1041 ----- ------- Specimen: [id number] Received: 09/08/24 Status: JHONY Rowley Num: [id number] Spec Type: Surgical Subm Dr: Jaswant Zaidi DO Tissues: A Esophagus Biopsy (ESO BX 18) B Esophagus Biopsy (ESO BX 16) Procedures: HE/Favian, Gross/Micro L4/2 ----- ------- Patient: Valente Lucio [id number] (Continued) ----- ------- Specimen: [id number] Received: 09/08/24 (Continued) Gross Description (Continued) (1, ns, [id number] B) CPT Codes 44136 x 2 ----- ------- ----- ------- Specimen: [id number] Received: 09/08/24 Status: JHONY Rowley Num: [id number] Spec Type: Surgical Subm Dr: Jaswant Zaidi DO Tissues: A Esophagus Biopsy (ESO BX 18) B Esophagus Biopsy (ESO BX 16) Procedures: HE/Favian, Gross/Micro L4/2 ----- ------- Patient: Valente Lucio [id number] (Continued) ----- ------- Signed (signature on file) Cisco Wahl Jr., MD 09/09/24 1041 BASIC METABOLIC PANEL Collected: 09/06/2024 7:25 AM Status: F Source: [facility] TYPE CODE TESTS RESULT OUT OF RANGE REFERENCE UNITS LAB GLU Glucose 88 Normal 70-100 mg/dL Result Comment: Random Gluco se Reference Range is dependent on time and content of last meal. Glucose of more than 200 mg/dL in a nonstressed, ambulatory subject supports the diagnosis of Diabetes Mellitus. ADA recommended reference range LAB BUN Blood Urea Nitrogen 9 Normal 7-25 mg/dL LAB CREATT Creatinine 0.48 Low 0.70-1.30 mg/dL LAB GFReNR Estimated GFR >60.0 mL/Min LAB NA Sodium 136 Normal 136-145 mmol/L LAB K Potassium 4.1 Normal 3.5-5.1 mmol/L LAB CL Chloride 102 Normal 98-107 mmol/L LAB CO2 Carbon Dioxide 29.9 Normal 21.0-31.0 mmol/L LAB GAP Anion Gap 8.2 Normal 6.0-15.0 meq/L LAB CA Calcium 9.0 Normal 8.6-10.3 mg/dL Result Comment: PERFORMED BY : [place] [address] PATHOLOGIST WHITEWATER RAFTING GUIDE ROXANE TAPIA M.D. Performed By: #### BMP #### [address] COMPLETE BLOOD COUNT AUTO DIFF Collected: 09/06/2024 7:25 AM Status: F Source: [facility] TYPE CODE TESTS RESULT OUT OF RANGE REFERENCE UNITS LAB WBC White Blood Count 4.5 Normal 4.1-10.5 10*3/uL LAB UNWBC Uncorrected WBC 4.5 Normal 4.1-10.5 10*3/uL LAB RBC Red Blood Count 4.21 Normal 3.90-5.60 10*6/u L LAB HGB Hemoglobin 14.3 Normal 13.0-17.0 g/dL LAB HCT Hematocrit 42.0 Normal 38.8-50.0 % LAB MCV Mean Corpuscular Volume 99.9 Normal 83.5-101 fL LAB MCH Mean Corpuscular Hemoglobin 34.0 Normal 27.5-35.2 pg LAB MCHC Mean Corpuscular HGB Conc 34.0 Normal 32.5-35.6 g/dL LAB RDW Red Cell Distribution Width 15.3 High 12.0-14.8 % LAB PLT Platelet Count 201 Normal 150-450 10*3/uL LAB MPV Mean Platelet Volume 7.4 Normal 6.6-10.1 fL LAB NE% Neutrophils % (Auto) 70.1 . % LAB LY% Lymphocytes % (Auto) 20.4 . % LAB MO% Monocytes % (Auto) 7.4 . % LAB EO% Eosinophils % (Auto) 1.4 . % LAB BA% Basophils % (Auto) 0.7 . % LAB NRBC% NRBC% 0.1 Normal 0-0.5 /100{WBC} LAB NE# Neutrophils # (Auto) 3.2 Normal 1.8-7.7 10*3/uL LAB LY# Lymphocytes # (Auto) 0.9 Low 1.00-4.8 10*3/uL LAB MO# Monocytes # (Auto) 0.3 Normal 0.0-0.8 10*3/uL LAB EO# Eosinophils # (Auto) 0.1 Normal 0.0-0.45 10*3/uL LAB BA# Basophils # (Auto) 0.0 Normal 0.0-0.2 10*3/uL Result Comment: PERFORMED BY : [place] [address] PATHOLOGIST WHITEWATER RAFTING GUIDE ROXANE TAPIA M.D. Performed By: #### CBC #### [facility] [address] [place] [address] ECG 12 LEAD ECG Observed: 09/06/2024 7:13 AM Status: COMPLETED Source: [facility] [place] [address] Electrocardiograph Report Signed Patient: Valente Lucio MR#: [id number] 34 : 1950 Acct:[id number] Age/Sex: 74 / M ADM Date: 09/06/24 Loc: PS Room: Type: [facility] Attending Dr: Jaswant Zaidi DO Ordering Provider: Jaswant Zaidi DO Date of Service: 09/06/24 ECG/ECG 12 lead ECG: [facility] Copies to: Test Reason : Blood Pressure [...] evident in Inferior leads Confirmed by JOSE CERVANTES MD ([id number]) on 09/06/2024 12:55:02 PM Referred By: Electronically Signed By: JOSE CERVANTES MD Transcribed By: MUS Signed By Jose Cervantes MD 0 09/06/24 1255 FL ESOPHAGUS Observed: 08/16/2024 10:09 AM Status: COMPLETED Source: [facility] [place] [address] Fluoroscopy Report Signed Patient: Valente Lucio MR#: [id number] [birth year] : 1950 Acct:[id number] Age/Sex: 74 / M ADM Date: 08/16/24 Loc: Room: Type: [facility] Attending Dr: Jaswant Zaidi DO Copies to: Jaswant Zaidi DO Ordering Provider: Jaswant Zaidi DO Date of Service: 08/16/24 FL/FL esophagus: h/o head and neck radiation, dysphagia FL esophagus 08/16/2024 8:20 AM SIGNS AND SYMPTOMS: 9.661 [id number] h/o head and neck radiation, dysphagia Esophagram [...] Alberto Allen M.D.08/16/2024 10:12 AM Dictation Location: [place] [address] Transcribed By: [facility] 08/16/24 1012 Dictated By: Luis Alberto Allen II, MD 08/16/24 1009 Signed By: <Electronically signed by Luis Alberto Allen II, MD in OV> 08/16/24 1012 MR ORBITS FACE NECK WO/W CON Observed: 07/01/2024 5:54 PM Status: COMPLETED Source: [facility] [place] [address] MRI Report Signed Patient: Valente Lucio MR#: [id number] [birth year] : 1950 Acct:[id number] Age/Sex: 73 / M ADM Date: 07/01/24 Loc: Room: Type: [facility] Attending Dr: Nabil Fox II DO Copies [...] Alberto Allen M.D.07/01/2024 6:14 PM Dictation Location: [place] [address] Transcribed By: [facility] 07/01/241813 Dictated By: Luis Alberto Allen II, MD 07/01/241753 Signed By: <Electronically signed by Luis Alberto Allen II, MD in OV> 07/01/241813 ISTAT XRAY CRE Collected: 07/01/2024 2:39 PM Status: F Source: [facility] TYPE CODE TESTS RESULT OUT OF RANGE REFERENCE UNITS LAB ISCREAT ISTAT Creatinine Level 0.7 Normal 0.6-1.3 mg/dL Result Comment: ER/ESD physi karina is notified/shown all ISTAT results. Critical values may be confirmed by laboratory testing if deemed necessary by ER attending doctor. LAB ISTATGFRNR ISTAT GFR >60.0 Result Comment: PERFORMED BY : [place] [address] PATHOLOGIST WHITEWATER RAFTING GUIDE ROXANE TAPIA M.D. Performed By: #### ISCRE ### # [facility] [address] [place] [address] PET TUMOR SUBQ TX STRAT SB-MT Observed: 06/25/2024 3:11 PM Status: COMPLETED Source: [facility] [place] [address] Nuclear Medicine Report Signed Patient: Valente Lucio MR#: [id number] [birth year] : 1950 Acct:[id number] Age/Sex: 73 / M ADM Date: 06/25/24 Loc: XT Room: Type: [facility] RCR Attending Dr: Nabil Fox II DO Copies to: MD Nabil Krishnamurthy II, Ever Fierro DO Ordering Provider: Sweetie Mirza MD Date [...] Ever Muñoz M.D.06/25/2024 3:44 PM Dictation Location: [facility] Transcribed By: [facility] 06/25/24 1544 Dictated By: Ever Muñoz DO 06/25/24 1511 Signed By: <Electronically signed by Ever Muñoz DO in OV> 06/25/24 1544 GLUCOSE POCT GLUCOMETERS Collected: 06/25/2024 8:28 A M Status: F Source: [facility] TYPE CODE TESTS RESULT OUT OF RANGE REFERENCE UNITS LAB GLUPOC Glucose Poc Glucometers 105 mg/dL Result Comment: Random Gluco se Reference Range is dependent on time and content of last meal. Glucose of more than 200 mg/dL in a nonstressed, ambulatory subject supports the diagnosis of Diabetes Mellitus. PERFORMED BY: [facility] [place] [address] PATHOLOGIST WHITEWATER RAFTING GUIDE ROXANE TAPIA M.D. Performed By: #### GLULS ### # Point of Care testing , ALLERGIES DATE TYPE / CODE NAME / CODE REACTION SEVERITY SOURCE 11/02/2024 Drug Allergy/1686316 02(SNOMED CT) gabapentin/F00 2243155(RXNORM ) muscle stiffness Unknown [facility] 11/02/2024 Drug Allergy/2368205 02(SNOMED CT) tizanidine/F00 2450650(RXNORM ) muscle stiffness Unknown [facility] ENCOUNTERS ADMIT/DISCHARGE ACCOUNT NUMBER ADMITTING ENCOUNTER CLASS LOCATION SOURCE 03/08/2025/03/08/20 [id number] Ambulatory Building:[facility] 02/28/2025/02/29/20 [id number] Ambulatory Building:[facility] NEURO [facility] 12/14/2024/12/15/19 [id number] Ambulatory Building:[facility] ENT [facility] 12/06/2024 [id number] Nabil Fox II [facility] 11/29/2024/11/30/19 [id number] Ambulatory Building:[facility] NEURO [facility] 11/02/2024/11/03/19 25 [id number] Ambulatory Building:[facility] EPIC 09/21/2024/09/22/19 25 [id number] Ambulatory Building:[facility] EPIC 09/08/2024/09/09/19 25 [id number] Ambulatory Building:[facility] EPIC 09/08/2024/09/09/19 25 [id number] Jaswant Zaidi [facility] 09/06/2024/09/07/19 [id number] Jaswant Zaidi [facility] 08/31/2024/09/01/19 [id number] Ambulatory Building:[facility] EPIC 08/16/2024/08/16/[id number] [facility] 08/10/2024/08/10/19 [id number] Ambulatory Building:[facility] EPIC 06/29/2024/06/29/19 25 [id number] Ambulatory Building:[facility] EPIC 06/03/2024/06/03/20 24 [id number] Ambulatory Building:[facility] EPIC 05/11/2024/05/11/20 24 [id number] Ambulatory Building:[facility] EPIC 03/30/2024/03/30/20 24 [id number] Ambulatory Building:[facility] EPIC 03/29/2024/03/29/[id number] [facility]FRMCP[facility] PAYERS ENCOUNTER GUARANTOR PAYER SUBSCRIBER SOURCE 03/08/2025 VALENTE BRAROB: [place], [place] [address]Azc: () Primary Insurance:MEDICAL D[employer]CETTE MEDICAREPolicy Number: [id number] Date:2024-06-23 VALENTE Torres SCHWEERDOB: [id number] [facility] [place] [address] [facility] EPIC 02/28/2025 VALENTE Torres SCHWEERDOB: [address] [place] [place] [address]Gbx: (HP) Primary Insurance:MEDICAL DOUCETTE MEDICAREPolicy Number: [id number] Date:2024-06-23 VALENTE Torres SCHWEERDOB: [id number] [facility] [place] [address] [facility] EPIC 12/14/2024 VALENTE Torres SCHWEERDOB: [facility] [place], [place] [address]Uip: (HP) Primary Insurance:MEDICAL DOUCETTE MEDICAREPolicy Number: [id number] Date:2024-06-23 VALENTE Torres SCHWEERDOB: [id number] [facility] [place] [address] [facility] EPIC 12/06/2024 Valente Torres [id number] [place] [address]Ijg: (HP) Primary Insurance:[facility] Adv PFFSPolicy Number: [id number] Date:7061-37-75KH [address] [place] [address]VR: Valente Torres SchweerDOB: [id number] [facility] [place] [address]Syq: (HP) [facility] 12/06/2024 Secondary Insurance:Self PayPolicy Number: Effective Date:2023-12-17 [facility] 11/29/2024 VALENTE Torres SCHWEERDOB: [facility] [place], [place] [address]Bxa: (HP) Primary Insurance:MEDICAL DOUCETTE MEDICAREPolicy Number: [id number] Date:2024-06-23 VALENTE Torres SCHWEERDOB: [id number] [place] [address] [facility] EPIC 11/02/2024 VALENTE Torres SCHWEERDOB: [address] [place] [address]Mxk: (HP) Primary Insurance:MEDICAL DOUCETTE MEDICAREPolicy Number: [id number] Date:2024-06-23 VALENTE Brian SCHWEERDOB: [id number] [place] [address] [facility] EPIC 09/21/2024 VALENTE Brian SCHWEERDOB: [facility] [place] [address]Fwk: (HP) Primary Insurance:MEDICAL DOUCETTE MEDICAREPolicy Number: [id number] Date:2024-06-23 VALENTE Brian SCHWEERDOB: [id number] [facility] [place] [address] [facility] EPIC 09/08/2024 VALENTE Brian SCHWEERDOB: [address] [place] [place] [address]Gyg: (HP) Primary Insurance:MEDICAL DOUCETTE MEDICAREPolicy Number: [id number] Date:2024-06-23 VALENTE Torres SCHWEERDOB: [id number] [place] [address] [facility] EPIC 09/08/2024 Valente Torres [id number] [place] [address]Wey: (HP) Primary Insurance:MMO [facility] Adv PFFSPolicy Number: [id number] Date:1037-06-19EM [address], [place] [address]PT: Valente Torres SchweerDOB: [id number] [place] [address]Bqh: (HP) [facility] 09/08/2024 Secondary Insurance:Self PayPolicy Number: Effective Date:2024-09-03 NOT GIVENUNK [facility] 09/06/2024 Valente D [address] [place] [address]Kng: (HP) Primary Insurance:[facility] Adv PFFSPolicy Number: [id number] Date:9965-48-81WE [place] [id number]: Valente D SchweerDOB: [id number] [place] [address]Zvr: (HP) [facility] 09/06/2024 Secondary Insurance:Self PayPolicy Number: Effective Date:2024-09-03 NOT GIVENUNK [facility] 08/31/2024 VALENTE D SCHWEERDOB: [address] [place] [place] [address]Wlz: (HP) Primary Insurance:MEDICAL M[employer]UAL MEDICAREPolicy Number: [id number] Date:2024-06-23 VALENTE D SCHWEERDOB: [id number] [place] [address] [facility] 08/16/2024 Valente D [id number] [place] [address]Whb: (HP) Primary Insurance:[facility] Adv PFFSPolicy Number: [id number] Date:7520-41-69ZK [address] [address]EN: Valente D SchweerDOB: [id number] [place] [address]Nvs: (HP) [facility] 08/16/2024 Secondary Insurance:Self PayPolicy Number: Effective Date:2024-08-11 NOT GIVENUNK [facility] 08/10/2024 VALENTE D SCHWEERDOB: [address] [place] [place] [address]Sdv: (HP) Primary Insurance:MEDICAL M[employer]UAL MEDICAREPolicy Number: [id number] Date:2024-06-23 VALENTE Torres SCHWEERDOB: [id number] [place] [address] [facility] EPIC 06/29/2024 VALENTE D SCHWEERDOB: [address] [place] [place] [address]Bxx: (HP) Primary Insurance:MEDICAL MUTUAL MEDICAREPolicy Number: [id number] Date:2024-06-23 VALENTE Torres SCHWEERDOB: [id number] [place] [address] [facility] EPIC 06/03/2024 VALENTE Torres SCHWEERDOB: [facility] [place] [place] [address]Fvi: (HP) Primary Insurance:[facility] MEDICARE ADVANTAGEPolicy Number: [id number] Date:2023-06-23 VALENTE Torres SCHWEERDOB: [id number] [place] [address] [facility] EPIC 05/11/2024 VALENTE Torres SCHWEERDOB: [facility] [place] [address]Eqg: (HP) Primary Insurance:[facility] MEDICARE ADVANTAGEPolicy Number: [id number] Date:2023-06-23 VALENTE Torres SCHWEERDOB: [id number] [place] [address] [facility] EPIC 03/30/2024 VALENTE Brian SCHWEERDOB: [address] [place] [place] [address]Muj: (HP) Primary Insurance:[employer] MEDICARE ADVANTAGEPolicy Number: [id number] Date:2023-06-23 VALENTE Torres SCHWEERDOB: [id number] [facility] [place] [address] [facility] EPIC 03/29/2024 Valente [address] [place] [address]Xqb: () Primary Insurance:Self PayPolicy Number: Effective Date:2024-02-24 [facility]
--- OUTSIDE RECORDS SUMMARY | 2025-03-24 09:23 | XMS_ITS | Encounter Summary ---
Author Organization [facility] Address [id number] [place] [address] Care Team Providers Care Emergency Management Consultant Name Role Phone Vimal Haque DO Primary Care Provider Encounter Details Date Type Department Care Team (Late st Contact Info) Description 09/30/2022 Orders Only [facility] Internal Medicine - Family Medicine [address] [place] [address] Vimal Haque DO [address] [place] [address] Social History Tobacco Use Types Packs/Day Years Used Date Smoking Tobacco: Former Cigarettes 1 40 Smokeless Tobacco: Never Alcohol Use Standard Drinks/Week Comments Yes 12 (1 standard drink = 0.6 oz pu re alcohol) PHQ-2 Answer Date Recorded Total Score 0 08/29/2022 Sex and Gender Information Value Date Recorded Sex Assigned at Not on file Legal Sex Male 9:51 AM EST Gender Identity Not on file Sexual Orientation Not on file documented as of this encounter Plan of Treatment Not on file documented as of this encounter Visit Diagnoses Not on filedocumented in this encounter Additional Health Concerns Assessment Noted Time PHQ-9 Depression Total Score: 0 08/30/19 23 11:23 AM EST documented as of this encounter Care Teams Emergency Management Consultant Relationship Specialty Start Date End Date Vimal Haque DO [address] [place] [address] PCP - General Internal Medicine 07/18/22 11/21/22 documented as of this encounter
--- OUTSIDE RECORDS SUMMARY | 2025-03-24 09:23 | XMS_ITS | Encounter Summary ---
Author Organization [facility] Address [id number] [address] [place] [address] Care Team Providers Care Senior Software Quality Analyst Name Role Phone Vimal Haque DO Primary Care Provider [phone] Encounter Details Date Type Department Care Team (Late st Contact Info) Description 08/19/2022 Orders Only [facility] Internal Medicine - Family Medicine [address] [place] [address] Vimal Haque DO [address] [place] [address] Social History Tobacco Use Types Packs/Day Years Used Date Smoking Tobacco: Former Cigarettes 1 40 Smokeless Tobacco: Never Alcohol Use Standard Drinks/Week Comments Yes 12 (1 standard drink = 0.6 oz pu re alcohol) PHQ-2 Answer Date Recorded Total Score 0 07/11/2022 Sex and Gender Information Value Date Recorded Sex Assigned at Not on file Legal Sex Male 9:51 AM EST Gender Identity Not on file Sexual Orientation Not on file COVID-19 Exposure Response Date Recorded In the last month, have you been in contact with someone who was confirmed or suspected to have Coronavirus / COVID-19? No / Unsure 08/08/2022 11:17 AM EST documented as of this encounter Plan of Treatment Not on file documented as of this encounter Visit Diagnoses Not on filedocumented in this encounter Additional Health Concerns Assessment Noted Time PHQ-9 Depression Total Score: 0 01/19/20 23 9:07 AM EST documented as of this encounter Care Teams Senior Software Quality Analyst Relationship Specialty Start Date End Date Vimal Haque DO [address] [place] [address] PCP - General Internal Medicine 07/18/22 11/21/22 documented as of this encounter
--- OUTSIDE RECORDS SUMMARY | 2025-03-24 09:23 | XMS_ITS | Encounter Summary ---
[id number] [address] [place] [address] Care Team Providers Care Overlock Waistline Joiner Name Role Phone Vimal Haque DO Primary Care Provider [phone] Reason for Referral * Consultation (Routine) - Closed Specialty Diagnoses / Procedures Referred By Contac t Referred To Contact Pulmonary Disease Diagnoses Chronic obstructive pulmonary disease, unspecified COPD type ([facility]) MEDHAT (obstructive sleep apnea) Vimal Haque DO [address] [place] [address] Phone: tel: fax: Renny Rodriguez DO [address] [place] [address] Phone: tel: fax: Referral ID Status Reason Start Date Expiration Date V isits Requested Visits Authorized [id number] Closed Specialty Services Required 09/23/2022 09/23/2023 1 1 Encounter Details Date Type Department Care Team (Late st Contact Info) Description 09/23/2022 Orders Only [facility] Internal Medicine - Family Medicine [address] [place] [address] Vimal Haque DO [address] [place] [address] Chronic obstructive pulmonary disease, unspecified COPD type ([facility]) (Primary Dx); MEDHAT (obstructive sleep apnea) Social History Tobacco Use Types Packs/Day Years [...] have Coronavirus / COVID-19? No / Unsure 08/29/2022 11:15 AM EST documented as of this encounter Plan of Treatment Not on file documented as of this encounter Results * Ambulatory referral to Pulmonology (10/24/2022 4:34 PM EDT) Vimal Haque DO OUTPATIENT REFERRAL ORDERABLES F inal Result MANUALLY TRANSCRIBED RESULTS documented in this encounter Visit Diagnoses Diagnosis Chronic obstructive pulmonary disease, unspecified COPD type ([facility])- Primary MEDHAT (obstructive sleep apnea) Obstructive sleep apnea (adult) (pediatric) documented in this encounter Additional Health Concerns Assessment Noted Time PHQ-9 Depression Total Score: 0 08/30/19 11:23 AM EST documented as of this encounter Care Teams Overlock Waistline Joiner Relationship Specialty Start Date End Date Vimal Haque DO [address] [place] [address] PCP - General Internal Medicine 07/18/22 11/21/22 documented as of this encounter
--- OUTSIDE RECORDS SUMMARY | 2025-03-24 09:23 | XMS_ITS | Clinical Summary ---
Author Organization [facility] Address [address] [place] [address] Care Team Providers Care Range Operator Name Role Phone Perlita Liu NP Primary Care Provider Vinicio Tamez MD Unavailable Jaswant Zaidi DO Unavailable [phone] Allergies Active Allergy Reactions Criticality Noted Date Comments Baclofen 07/11/2022 Other Reaction(s): Muscle Stiffness Other Reaction(s): muscle stiffness Cyclobenzaprine 07/11/2022 Other Reaction(s): Muscle Stiffness Other Reaction(s): muscle stiffness Gabapentin 01/20/2023 Other Reaction(s): muscle stiffness Onabotulinumtoxina 07/11/2022 Other Reaction(s): muscle stiffness Onabotulinumtoxina (Cosmetic) 2023 Other Reaction(s): Not available Tizanidine 11/20/2023 Other Reaction(s): muscle stiffness Medications losartan (Cozaar) 50 MG tablet 1 (one) time each day at the same time 3 Active Aspirin Low Dose 81 MG chewable tablet 3 Active citalopram (CeleXA) 20 MG tabletIndications: Anxiety disorder, unspecified TAKE 1 TABLET BY MOUTH DAILY 100 tablet 3 Active Calcium-Vitamin D-Iron (CALCIUM 600 IRON/D PO) Take 1 tablet by mouth Daily Active rOPINIRole (Requip) 2 MG tabletIndications: Restless Leg Syndrome Take one (2 mg) tablet by mouth in the morning, take one (2 mg) tablet by mouth in the evening, and take four (2 mg) tablets by mouth at bed. 180 tablet 1 5 Active thiamine (Vitamin B-1) 100 MG tabletIndications: RLS (restless legs syndrome) Take 1 tablet (100 mg) by mouth Daily 30 tablet 11 5 02/29/20 26 Active rosuvastatin (Crestor) 20 MG tablet 1 (one) time each day at the same time 3 02/29/20 25 Discontin ued(Thera py completed ) rOPINIRole (Requip) 2 MG tabletIndications: Restless Leg Syndrome Take 0.5 tablets (1 mg) by mouth Daily before meals AND 1 tablet (2 mg) at bedtime. 135 tablet 1 3 02/29/20 25 Discontin ued(Reord er) pregabalin (Lyrica) 150 MG capsuleIndications :Restless legs syndrome TAKE 1 CAPSULE BY MOUTH THREE TIMES DAILY 270 capsule 4 02/29/20 25 Discontin ued(Thera py completed ) oxyCODONE (Roxicodone) 5 MG/5ML solution Take by mouth every 6 (six) hours if needed 4 02/29/20 25 Discontin ued(Thera py completed ) silver sulfADIAZINE (Silvadene) 1 % cream 4 02/29/20 25 Discontin ued(Thera py completed ) scopolamine (Transderm-Scop) 1 mg/72 hr patch 72 hour patch 4 02/29/20 25 Discontin ued(Thera py completed ) fluconazole (Diflucan) 100 MG tablet 4 02/29/20 25 Discontin ued(Thera py completed ) fentaNYL (Duragesic) 12 MCG/HR 4 02/29/20 25 Discontin ued(Thera py completed ) mometasone (Elocon) 0.1 % cream 4 02/29/20 25 Discontin ued(Thera py completed ) ondansetron ODT (Zofran-ODT) 8 MG disintegrating tablet 4 02/29/20 25 Discontin ued(Thera py completed ) lisinopril 20 MG tablet 02/29/20 25 Discontin ued(Abdi mendoza completed ) omeprazole (PriLOSEC) [address] capsule Take 40 mg by mouth Daily 5 02/29/20 25 Discontin ued(Abdi mendoza completed ) Active Problems Problem Noted Date Diagnosed Date S/P percutaneous endoscopic gastrostomy (PEG) tube placement 03/30/2024 Throat cancer 01/29/2024 Oral phase dysphagia 01/29/2024 Bronchitis 01/17/2024 Cancer associated pain 01/17/2024 Encounter for palliative care 01/17/2024 Increased oropharyngeal secretions 01/17/2024 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 Benign prostatic hyperplasia without lower urinary tract symptoms 06/24/2023 YNES (generalized anxiety disorder) 06/24/2023 Iron deficiency anemia 06/24/2023 Assessment & Plan (06/24/2023 12:25 PM EST): Iron deficiency anemia, noted on routine labs. On PO iron, tolerating it well w/o adverse effects Recheck Iron levels to ensure response to treatment. If no improvement, will need IV iron infusion Patient referred to GI for colonoscopy. Abnormal CT of the chest 06/24/2023 Assessment & Plan (06/24/2023 12:28 PM EST): Abnormal CT chest 05/15 for lung cancer screening. Repeat recommended in 6 months. Ordered. Oropharyngeal dysphagia 06/24/2023 Assessment & Plan (06/24/2023 12:26 PM EST): Reports ongoing oropharyngeal dysphagia, aspiration resulting in cough with certain foods. It started with his CVA in 2019 but has gotten worse lately. Refer to GI for Endoscopy. Also ordered Speech evaluation, video swallow evaluation Chronic obstructive pulmonary disease 08/29/2022 Assessment & Plan (06/24/2023 12:27 PM EST): Chronic smoker, reports chronic cough and GARNER. Has limited his mobility and function as a result of it He felt really well on trelegy but could not use it due to cost. His insurance has changed and he is hoping, it will be affordable now. Will call in [employer]. Obstructive sleep apnea syndrome 08/29/2022 Resolved Problems Problem Noted Date Diagnosed Date Resolved Date Maxillary sinusitis 12/14/2024 12/15/19 25 Long-term use of aspirin therapy 06/26/2024 06/26/2024 Constipation 02/21/2024 02/21/2024 Cough 02/21/2024 02/21/2024 Depression 12/02/2023 12/02/2023 Frequent falls 12/02/2023 12/02/2023 History of tobacco use 12/02/202312/01 Hypertension 12/02/2023 12/02/2023 Left hemiplegia 12/02/2023 12/02/2023 Oropharyngeal mass 12/02/2023 Primary osteoarthritis of right knee 12/02/2023 12/02/2023 Stroke 12/02/2023 12/02/2023 Osteoarthritis of knee 09/25/202112/01 Encounters Date Type Department Care Team Description 03/08/2025 10:15 AM EDT Office Visit [facility] [address] [place] [address] Jaswant Zaidi DO Malignant neoplasm of larynx (HCC) (Primary Dx); History of head and neck radiation 03/08/2025 Bamboo flowsheet [facility] [address] [place] [address] Jaswant Zaidi DO 03/08/2025 Travel 02/28/2025 9:40 AM EDT Office Visit [facility] [address] [place] [address] Rupert Rolle MD RLS (restless legs syndrome) (Primary Dx) 02/28/2025 Bamboo flowsheet [facility] [address] [place] [address] Rupert Rolle MD 02/28/2025 Travel from Last 3 Months Immunizations Immunization Administration Dates Next Due Influenza, High-dose Seasona l, Quadrivalent, Preservative Free 04/15/2023 Family History Medical History Relation Name Comments No Known Problems Father No Known Problems Mother Hypertension Other Relation Name Status Comments Father Mother Other Social History Tobacco Use Types Packs/Day Years Used Date Smoking Tobacco: Former Cigarettes 2 020 - 1970 Smokeless Tobacco: Never Tobacco Cessation:Counseling Given: Not Answered Alcohol Use Standard Drinks/Week Comments Yes 40 (1 standard drink = 0.6 oz pu re alcohol) Caffeine: 1 cups per day AUDIT-C Answer Date Recorded Q1: How often do you have a drink containing alcohol? 4 or more times a week 12/20/2023 Q2: How many drinks containi ng alcohol do you have on a typical day when you are drinking? 5 or 6 Q3: How often do you have si x or more drinks on one occasion? Daily or almost daily 12/20/2023 PHQ-2 Answer Date Recorded Patient Health Questionnaire-2 Score 0 06/24/2023 Sex and Gender Information Value Date Recorded Sex Assigned at Not on file Legal Sex Male 8:41 AM EDT Gender Identity Not on file Sexual Orientation Not on file Last Filed Vital Signs Vital Sign Reading Time Taken Comments Blood Pressure 100/62 02/28/2025 9:55 AM EDT Pulse 66 12/23/2023 9:28 AM EDT Temperature 36.7 C (98 F) 06/24/2023 11:49 AM EST Respiratory Rate 16 05/06/2023 10:06 AM EST Oxygen Saturation 96% 06/24/2023 11:49 AM EST Inhaled Oxygen Concentration - - Weight 61.2 kg (135 lb) 03/08/2025 10:30 AM EDT Height 177.8 cm (5' 10 ) 03/08/2025 10:30 AM EDT Body Mass Index 19.37 03/08/2025 10:30 AM EDT Plan of Treatment Upcoming Encounters Date Type Department Care Team (Late st Contact Info) Description 06/02/2025 10:00 AM EST Office Visit [facility] [address] [place] [address] Rupert Rolle MD [address] [place], [place] [id number] 06/07/2025 8:45 AM EST Office Visit [facility] [address] [place] [address] Jaswant Zaidi, [address] [place] [address] Health Maintenance Due Date Last Done Comments CT Colonography 1952 Colonoscopy 1952 Colorectal Cancer Screening 1952 FIT-DNA 1952 FIT 1952 FOBT 1952 Sigmoidoscopy 1950 Pneumococcal Vaccine: 65+ Years (1 of 1 - PCV) 003 Influenza Vaccine (#1) 2025 04/15/2023 Insurance [employer] Care Teams Range Operator Relationship Specialty Start Date End Date Perlita Liu NP [address] [place] [address] [place] [address] PCP - General Family Medicine 12/02/23 Vinicio Tamez MD [address] [place] [address] Referring Physician Gastroenterology 12/15/23 Jaswant Zaidi DO [address] [place] [address] Otolaryngology 12/15/23
--- OUTSIDE RECORDS SUMMARY | 2025-03-24 09:23 | XMS_ITS | Patient Health Record ---
Author Organization [facility] Address [address] [place] [address] Care Team Providers Care Photography Sales Associate Name Role Phone SHAIKH HERNANDEZ Primary Care Provider London Mendez [facility] [phone] Allergies Allergen (clinical drug ingredient) Drug/Non Drug Allergy documented on EMR Reaction Allergy Type Onset Date Status botulinum toxin type A botox (uncoded) Unknown Allergy Active muscle relaxers (uncoded) Unknown Allergy Active baclofen baclofen Unknown Drug Allergy Active Flexeril Unknown Drug Allergy Active Reason For Referral No Information Medications Medication SIG (Take, Route, Frequency, Duration) Notes Start Date End Date Status tamsulosin Active rOPINIRole Active citalopram Active rosuvastatin Active Aspirin Active losartan Active Lyrica Active Social History Tobacco Use: Social History Observation Description Date Details (start date - stop date) Never Smoker NA - NA Smoking History Question Answer Notes Smoking Status NonSmoker Problems Problem Type SNOMED Code ICD Code Onset Dates Problem Status W/U Status Risk Notes Problem 894415239 Aftercare following surgery of the nervous system (Z48.811) Active confirmed Problem 519269232726043 Carpal tunnel syndrome, right upper limb (G56.01) Active confirmed Problem 082467656079558 Primary osteoarthritis of right knee (M17.11) Active confirmed Problem 797507911 Preop testing (Z01.818) Active confirmed Problem 775010675 Long-term use of aspirin therapy (Z79.82) Active confirmed Plan Of Treatment No Information Insurance Providers Payer Name Payer Address Payer Phone Subscriber Number Group Number Insured Name Patient Relationship to Insured Coverage Start Date Coverage End Date Medicare [employer] [place] [address] [place] [phone] [id number] IVIS GAN Self - patient is the insured Medical (General) History Medical History History ICD Code Stroke: Yes High Blood Pressure: Yes Depression: Yes Sleep apnea: Yes Drug Allergies: Yes Surgical History Surgery Date(Month/Year)
--- OUTSIDE RECORDS SUMMARY | 2025-03-24 09:23 | XMS_ITS | Encounter Summary ---
Author Organization [facility] [employer] [facility] Address [id number] [address] [place] [address] Care Team Providers Care Bilingual Nanny Name Role Phone Vimal Haque DO Primary Care Provider [phone] Encounter Details Date Type Department Care Team (Late st Contact Info) Description 08/29/2022 [facility]phone [facility] [address] [place] [address] Vimal Haque DO [address] [place] [address] Social History Tobacco Use Types Packs/Day Years [...] AM EST documented as of this encounter Miscellaneous Notes * Telephone Encounter - Karlene Bekatamikoryan - 08/29/2022 1:56 PM EST The patient call and said that the trelegy is going to cost 400 dollars and they were wondering if there is something else that would be cheaper * Telephone Encounter - Vimal Haque DO - 08/29/2022 1:56 PM EST It is hard to say, because it all depends on insurance. She can check with [facility] on the following options: Breztri, Stiolto, Advair, Symbicort, Dulera.All are similar, so I can order whichever one is best covered. * Telephone Encounter - Karlene [place] - 08/29/2022 1:56 PM EST Talked to the patients wide and she is going to stop in tomorrow to fern picker the list of inhalers soshe can see what is best covered * Telephone Encounter - Carmen Olivas CMA - 08/29/2022 1:56 PM EST Patient called back and stated that she reached out to Insurance and the only thing that is covered is Duo Neb and Albuterol Sulfate * Telephone Encounter - Vimal Haque DO - 08/29/2022 1:56 PM EST Duoneb is the most similar medication, but needs to be given 4 times a day via a nebulizer machine.If he is willing to do that, I can order it. * Telephone Encounter - Karlene [place] - 08/29/2022 1:56 PM EST Talked to the patients and he said that he will do the duoneb if you could please send that in. Thanks * Telephone Encounter - Vimal Haque DO - 08/29/2022 1:56 PM EST Rx for nebulizer, pulmicort and duoneb sent to [facility] today * Telephone Encounter - Tri Hernandez CMA - 08/29/2022 1:56 PM EST I called and spoke to , she was very upset and was angry that she has been running her A off to get all this stuff for her . She stated that we sent all this info and no insurance infoto Medical Services and now she must wait even longer to get his nebulizer. She gave me number thatshe stated 'the girl up front gave her' for the [employer] supply company. I contacted medical services and sent them the insurance information that they needed. I requested that they contact pt's , [facility] to fill nebulizer. documented in this encounter Plan of Treatment Not on file documented as of this encounter Visit Diagnoses Not on filedocumented in this encounter Additional Health Concerns Assessment Noted Time PHQ-9 Depression Total Score: 0 08/30/19 11:23 AM EST documented as of this encounter Care Teams Bilingual Nanny Relationship Specialty Start Date End Date Vimal Haque DO [address] [place] [address] PCP - General Internal Medicine 07/18/22 11/21/22 documented as of this encounter
--- OUTSIDE RECORDS SUMMARY | 2025-03-24 09:23 | XMS_ITS ---
Author Organization [facility] Address [address] [place] [address] Care Team Providers Care Graphite Disk Assembler Name Role Phone Perlita Liu NP Primary Care Provider Vinicio Tamez MD Unavailable [phone] Jaswant Zaidi DO Unavailable [phone] Active Problems Problem Noted Date Diagnosed Date S/P percutaneous endoscopic gastrostomy (PEG) tube placement 03/30/2024 Throat cancer 01/29/2024 Oral phase dysphagia 01/29/2024 Bronchitis 01/17/2024 Cancer associated pain 01/17/2024 Encounter for palliative care 01/17/2024 Increased oropharyngeal secretions 01/17/2024 Squamous cell carcinoma of hypopharynx 4 Cerebral infarction involving right middle cereb ral [...] will be affordable now. Will call in Trelegy. Obstructive sleep apnea syndrome 08/29/2022 Current Treatment and Therapy Plans No current plan information found. Past Treatment and Therapy Plans No past plan information found. Lifetime Dose Tracking * Chemical Lifetime Dose Automatic Entry Manual Entr y Radiation 10.6 mSv 10.6 mSv 0 mSv Resolved Problems Problem Noted Date Diagnosed Date [...]
--- OUTSIDE RECORDS SUMMARY | 2025-03-24 09:23 | XMS_ITS | Encounter Summary ---
Author Organization [facility] Address [address] [place] [address] Care Team Providers Care Heel Shaper Name Role Phone Shaikh BHUPINDER Ruiz Primary Care Provider [phone] Shaikh BHUPINDER Ruiz Unavailable [phone] Perlita Liu NP Primary Care Provider Vinicio Tamez MD Unavailable [phone] Jaswant Zaidi DO Unavailable Reason for Visit * Reason Comments Med Refill Encounter Details Date Type Department Care Team (Late st Contact Info) Description 06/12[facility]20[facility] [address] [place] [address] Shaikh Ruiz MD [address] [place] [address] Anxiety disorder, unspecified Social History Tobacco Use Types Packs/Day Years Used Date Smoking Tobacco: Former Cigarettes Q uit: 2020 Alcohol Use Standard Drinks/Week Comments Yes 0 (1 standard drink = 0.6 oz pur e alcohol) Sex and Gender Information Value Date Recorded Sex Assigned at Not on file Legal Sex Male 8:41 AM EDT Gender Identity Not on file Sexual Orientation Not on file documented as of this encounter Miscellaneous Notes * Telephone Encounter - Shaikh Joseph MD - 06/12/2023 12:37 PM EST Approving, but needs appt for additional refills. documented in this encounter Plan of Treatment Upcoming Encounters Date Type Department Care Team (Late st Contact Info) Description 06/02/2025 10:00 AM EST Office Visit [facility] [address] [place] [address] Rupert Rolle MD [address] [facility] [place], [place] [id number] 06/07/2025 8:45 AM EST Office Visit [facility] [address] [place] [address] Jaswant Zaidi, [address] [place] [address] documented as of this encounter Visit Diagnoses Diagnosis Anxiety disorder, unspecified documented in this encounter Care Teams Heel Shaper Relationship Specialty Start Date End Date Shaikh Ruiz MD PCP - General Internal Medicine 01/20/23 12/01/23 Shaikh Ruiz MD [address] [facility] [place] [address] PCP - [facility] 06/23/22 06/22/23 Perlita Liu NP [address] [place] [address] PCP - General Family Medicine 12/02/23 Vinicio Tamez MD [address] [place] [address] Referring Physician Gastroenterology 12/15/23 Jaswant Zaidi, [address] [place] [address] Otolaryngology 12/15/23 documented as of this encounter
--- OUTSIDE RECORDS SUMMARY | 2025-03-24 09:23 | XMS_ITS | Encounter Summary ---
Author Organization [facility] Address [id number] [address] [place] [address] Care Team Providers Care Concrete Polisher Name Role Phone Vimal Haque DO Primary Care Provider [phone] Encounter Details Date Type Department Care Team (Late st Contact Info) Description 08/15/2022 Orders Only [facility] Internal Medicine - Family Medicine [address] [place] [address] Vimal Haque DO [address] [place] [address] Social History Tobacco Use Types Packs/Day Years [...] Noted Time PHQ-9 Depression Total Score: 0 07/11/19 9:07 AM EST documented as of this encounter Care Teams Concrete Polisher Relationship Specialty Start Date End Date Vimal Haque DO [address] [place] [address] PCP - General Internal Medicine 07/18/22 11/21/22 documented as of this encounter
--- OUTSIDE RECORDS SUMMARY | 2025-03-24 09:23 | XMS_ITS | Encounter Summary ---
Author Organization [facility] Address [id number] [address] [place] [address] Care Team Providers Care Booster Pump Operator Name Role Phone Vimal Haque DO Primary Care Provider [phone] Reason for Referral * Misc (Routine) - Closed Specialty Diagnoses / Procedures Referred By Contpatrick t Referred To Contact Diagnoses Chronic obstructive pulmonary disease, unspecified COPD type ([facility]) Procedures Home Nebulizer Vimal Haque DO [address] [place] [address] Phone: tel: fax: Referral ID Status Reason Start Date Expiration Date Visits Re quested Visits Authorized [id number] Closed 09/11/2022 09/11/2023 1 1 Encounter Details Date Type Department Care Team (Late st Contact Info) Description 09/11/2022 Orders Only [facility] Internal Medicine - Family Medicine [address] [place] [address] Vimal Haque DO [address] [place], [place] [phone] Chronic obstructive pulmonary disease, unspecified COPD type ([facility]) (Primary Dx) Social History Tobacco Use Types Packs/Day Years [...] as of this encounter Visit Diagnoses Diagnosis Chronic obstructive pulmonary disease, unspecified COPD type ([facility])- Primary documented in this encounter Additional Health Concerns Assessment Noted Time PHQ-9 Depression Total Score: 0 08/30/19 11:23 AM EST documented as of this encounter Care Teams Booster Pump Operator Relationship Specialty Start Date End Date Vimal Haque DO [address] [place] [address] PCP - General Internal Medicine 07/18/22 11/21/22 documented as of this encounter
--- OUTSIDE RECORDS SUMMARY | 2025-03-24 09:23 | XMS_ITS | Encounter Summary ---
Author Organization [facility] Address [address] [place] [address] Care Team Providers Care Watchstander Name Role Phone Shaikh BHUPINDER Ruiz Primary Care Provider [phone] Perlita Liu NP Primary Care Provider Vinicio Tamez MD Unavailable [phone] Jaswant Zaidi DO Unavailable [phone] Encounter Details Date Type Department Care Team (Late st Contact Info) Description 07/14/2023 Orders Only [facility] [address] [place] [address] Shaikh Ruiz MD [address] [place] [address] Social History Tobacco Use Types Packs/Day Years Used Date Smoking Tobacco: Former Cigarettes Q uit: 2020 Smokeless Tobacco: Never Alcohol Use Standard Drinks/Week Comments Yes 0 (1 standard drink = 0.6 oz pur e alcohol) OCCASSIONAL PHQ-2 Answer Date Recorded Patient Health Questionnaire-2 Score 0 06/24/2023 Sex and Gender Information Value Date Recorded Sex Assigned at Not on file Legal Sex Male 8:41 AM EDT Gender Identity Not on file Sexual Orientation Not on file documented as of this encounter Plan of Treatment Upcoming Encounters Date Type Department Care Team (Late st Contact Info) Description 06/02/2025 10:00 AM EST Office [facility] [address] [place] [address] Rupert Rolle MD [address] [place] [id number] 06/07/2025 8:45 AM EST Office [facility] [address] [place] [address] Jaswant Zaidi DO [address] [place] [address] documented as of this encounter Procedures Procedure Name Priority Date/Time Associated Diagnosis Comments MULTIPLE SLEEP LATENCY TEST Routine 07/07/2023 12:37 PM EST documented in this encounter Results * Multiple sleep latency test (07/07/2023 12:37 PM EST) us Shaikh Joseph [facility] ORDERABLES Final R esult documented in this encounter Visit Diagnoses Not on filedocumented in this encounter Care Teams Watchstander Relationship Specialty Start Date End Date Shaikh Ruiz MD PCP - General Internal Medicine 01/20/23 12/01/23 Perlita iLu NP [address] [place] [address] PCP - General Family Medicine 12/02/23 Vinicio Tamez MD [address] [place] [address] Referring Physician Gastroenterology 12/15/23 Jaswant Zaidi DO [address] [place] [address] Otolaryngology 12/15/23 documented as of this encounter
--- OUTSIDE RECORDS SUMMARY | 2025-03-24 09:23 | XMS_ITS | Encounter Summary ---
Author Organization [facility] Address [address] [facility] [place] [address] Care Team Providers Care Cook Tortilla Name Role Phone Shaikh BHUPINDER Ruiz Primary Care Provider [phone] Perlita Liu NP Primary Care Provider Vinicio Tamez MD Unavailable [phone] Jaswant Zaidi DO Unavailable [phone] Encounter Details Date Type Department Care Team (Late st Contact Info) Description 07/08/2023 Clinisync Result Encounter [facility] External Department Unsolicited Shaikh Ruiz MD [address] [place] [address] Social History Tobacco Use Types Packs/Day Years [...] Description 06/02/2025 10:00 AM EST Office Visit [facility] [address] [facility] [address] [place] [address] Rupert Rolle MD [address] [place], [place] [id number] 06/07/2025 8:45 AM EST Office Visit [facility] [address] [place] [address] Jaswant Zaidi, DO [address] [address] documented as of this encounter Procedures Procedure Name Priority Date/Time Associated Diagnosis Comments FL MODIFIED BARIUM SWALLOW 07/08/2023 2:01 PM EST documented in this encounter Results * FL MODIFIED BARIUM SWALLOW (07/08/2023 2:01 PM EST) Anatomical Region Laterality Modality Radiographic Munira ging 07/08/2023 2:01 PM EST Narrative 07/08/2023 2:04 [place] [address] Fluoroscopy Report Signed Patient: VALENTE GAN MR#: [id number] : 1950 Acct:[id number] Age/Sex: 72 / M ADM Date: 07/08/23 Loc: [place] Attending Dr: Shaikh Joseph Harper Ordering Physician: Shaikh Meredith Ruiz Date of Service: 07/08/23 Procedure(s): FL modified barium swallow Accession Number(s): [id number] cc: Shaikh Meredith Ruiz [address] [address] Patient Name: VALENTE GAN MRN: [id number] date: 1950 Sex: M Assigned Patient Location: [place] Current Patient Location: [place] Accession/Order Number: [id number] Exam Date: 07/08/2023 13:15 Report Date: 07/08/2023 14:01 At the request of: SHAIKH JOSEPH Procedure: FL modified barium swallow EXAMINATION: FL modified barium swallow HISTORY: Oropharyngeal dysphagia R13.12 COMPARISON: No relevant comparison available. TECHNIQUE: A swallowing evaluation was performed with fluoroscopy in the usual manner. Standard level fluoroscopic mode of operation utilized. Speech pathology was present. The procedure was recorded FINDINGS: ORAL PHASE: Normal deglutition. PHARYNGEAL PHASE: Normal swallowing. ASPIRATION: None. STRUCTURE: Normal. No visible obstruction, stricture, or dilatation. OTHER: Negative. FL/FL modified barium swallow IMPRESSION: Normal examination. Electronically authenticated by: ALEKSANDAR JOSEPH Date: 07/08/2023 14:01 Dictated By: Aleksnadar Joseph M.D. Signed By: 07/08/23 1404 DD/ 140 TD/TT: Curriculum Coach: Procedure Note Radiology, Radiologist, MD - 07/10/2023 [place] [address] Fluoroscopy Report Signed Patient: VALENTE GAN DMR#: [id number] : 1950cct:[id number] Age/Sex: 72 / MADM Date: 07/08/23 Loc: [place] Attending Dr: Shaikh Joseph Harper Ordering Physician: Shaikh Meredith Ruiz Date of Service: 07/08/23 Procedure(s): FL modified barium swallow Accession Number(s): [id number] cc: Shaikh Meredith Ruiz [facility] [place] [id number] Patient Name: VALENTE GAN MRN: [id number] date: 1950 Sex: M Assigned Patient Location: [place] Current Patient Location: [place] Accession/Order Number: [id number] Exam Date: 07/08/2023 13:15 Report Date: 07/08/2023 14:01 At the request of: SHAIKH JOSEPH Procedure: FL modified barium swallow EXAMINATION: FL modified barium swallow HISTORY: Oropharyngeal dysphagia R13.12 COMPARISON: No relevant comparison available. TECHNIQUE: A swallowing evaluation was performed with fluoroscopy in theusual manner. Standard level fluoroscopic mode of operation utilized. Speech pathology was present. The procedure was recorded FINDINGS: ORAL PHASE: Normal deglutition. PHARYNGEAL PHASE: Normal swallowing. ASPIRATION: None. STRUCTURE: Normal. No visible obstruction, stricture, or dilatation. OTHER: Negative. FL/FL modified barium swallow IMPRESSION: Normal examination. Electronically authenticated by: ALEKSANDAR JOSEPH Date: 07/08/2023 14:01 Dictated By: Aleksandar Joseph M.D. Signed By:07/08/23 1404 DD/ 140 TD/TT: Curriculum Coach: us Shaikh Joseph ROE IMG XR PROCEDURES Final Result documented in this encounter Visit Diagnoses Not on filedocumented in this encounter Care Teams Cook Tortilla Relationship Specialty Start Date End Date Shaikh Ruiz MD PCP - General Internal Medicine 01/20/23 12/01/23 Perlita Liu NP [address] [place] [address] PCP - General Family Medicine 12/02/23 Vinicio Tamez MD [address] [place] [address] Referring Physician Gastroenterology 12/15/23 Jaswant Zaidi DO [address] [address] Otolaryngology 12/15/23 documented as of this encounter
--- OUTSIDE RECORDS SUMMARY | 2025-03-24 09:23 | XMS_ITS | Encounter Summary ---
Author Organization [facility] Address [address] [facility] [address] Care Team Providers Care Rock Picker Name Role Phone Perlita Liu NP Primary Care Provider Vinicio Tamez MD Unavailable [phone] Jaswant Zaidi DO Unavailable [phone] Encounter Details Date Type Department Care Team (Latest Contact Info) Description 02/03/2024 Abstract [facility] EXT DEP Jose Francis, DO [address] [address] Social History Tobacco Use Types Packs/Day Years Used Date Smoking Tobacco: Former Cigarettes Q uit: 2020 Smokeless Tobacco: Never Alcohol Use Standard Drinks/Week Comments Yes 0 (1 standard drink = 0.6 oz pur e alcohol) Caffeine: 1-2 cups per day AUDIT-C Answer Date Recorded [...] [address] [place] [address] Rupert Rolle MD [address] [facility] [address] [facility] [place] [address] 06/07/2025 8:45 AM EST Office Visit [facility] [address] [place] [phone] Jaswant Zaidi DO [address] [place] [address] documented as of this encounter Visit Diagnoses Not on filedocumented in this encounter Care Teams Rock Picker Relationship Specialty Start Date End Date Perlita Liu NP [address] [place] [address] PCP - General Family Medicine 12/02/23 Vinicio Tamez MD [address] [place] [address] Referring Physician Gastroenterology 12/15/23 Jaswant Zaidi DO [address] [place] [address] Otolaryngology 12/15/23 documented as of this encounter
--- OUTSIDE RECORDS SUMMARY | 2025-03-24 09:24 | XMS_ITS | Clinical Summary ---
Author Organization [facility] Address [id number] [address] 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 (CMS-HCC) TAKE 1 TABLET BY MOUTH DAILY 90 tablet 3 Active losartan (COZAAR) 50 mg tabletIndication s:Essential hypertension TAKE ONE TABLET BY MOUTH ONCE DAILY 90 tablet 3 Active rOPINIRole (REQUIP) 0.5 mg tabletIndication s:Restless legs syndrome TAKE ONE TABLET BY MOUTH EVERY EVENING 90 tablet 3 Active rosuvastatin (CRESTOR) 20 mg tabletIndication s:Cerebrovascula r accident (CVA) due to thrombosis of right middle cerebral artery (CMS-HCC) TAKE ONE TABLET BY MOUTH ONCE DAILY 90 tablet 1 3 Active tamsulosin (FLOMAX) 0.4 mg capsuleIndicatio ns:Benign prostatic hyperplasia with urinary frequency TAKE ONE CAPSULE BY MOUTH DAILY 90 capsule 1 3 Active ipratropium-albu teroL (DUONEB) 0.5 mg-3 mg(2.5 mg base)/3 mL nebulizerIndicat ions:Chronic obstructive pulmonary disease, unspecified COPD type ([facility]-HCC) Inhale 3 mL by nebulization 4 (four) times a day. 360 mL 3 3 Active budesonide (PULMICORT) 0.25 mg/2 mL nebulizer solutionIndicati ons:Chronic obstructive pulmonary disease, unspecified COPD type (CMS-HCC) Inhale 2 mL (0.25 mg total) by nebulization in the morning and 2 mL (0.25 mg total) before bedtime. 360 mL 3 3 Active pregabalin (LYRICA) 150 mg capsuleIndicatio ns:Cerebrovascul ar accident (CVA) due to thrombosis of right middle cerebral artery ([facility]) TAKE 1 CAPSULE BY MOUTH THREE TIMES DAILY 90 capsule 3 Active Active Problems Problem Noted Date Diagnosed Date MEDHAT (obstructive sleep apnea) 08/29/2022 Chronic obstructive pulmonary disease 08/29/2022 Osteoarthritis of knee 09/25/2021 Family History Medical History Relation Name Comments Breast cancer Sister Relation Name Status Comments Father Mother Sister Alive Social History Tobacco Use Types Packs/Day Years Used Date Smoking Tobacco: Former Cigarettes 1 40 Smokeless Tobacco: Never Tobacco Cessation:Counseling Given: Not Answered Alcohol Use Standard Drinks/Week Comments Yes 12 (1 standard drink = 0.6 oz pu re alcohol) PHQ-2 Answer Date Recorded Total Score 0 10/18/2022 Hunger Screening Answer Date Recorded Within the past 12 months we worried whether our food would run out before we got money to buy more. Never True 10/18/2022 Within the past 12 months th e food we bought just didn't last and we didn't have money to get more. Never True 10/18/2022 Sex and Gender Information Value Date Recorded Sex Assigned at Not on file Legal Sex Male 9:51 AM EST Gender Identity Not on file Sexual Orientation Not on file Last Filed Vital Signs Vital Sign Reading Time Taken Comments Blood Pressure 138/86 10/18/2022 8:23 AM EDT Pulse 83 10/18/2022 8:23 AM EDT Temperature 36.3 C (97.3 F) 10/18/2022 8:23 AM EDT Respiratory Rate 20 10/18/2022 8:23 AM EDT Oxygen Saturation 95% 10/18/2022 8:23 AM EDT Inhaled Oxygen Concentration - - Weight 95.3 kg (210 lb) 10/18/2022 8:23 AM EDT Height 177.8 cm (5' 10 ) 10/18/2022 8:23 AM EDT Body Mass Index 30.13 10/18/2022 8:23 AM EDT Plan of Treatment Health Maintenance Due Date Last Done Comments Tobacco Screening 1964 DTaP,Tdap and Td Vaccines (1 - Tdap) 1971 Zoster (Shingles) Vaccine (1 of 2) 2002 Abdominal Aortic Aneurysm (AAA) Screen 2017 Fall Risk Screening 10/11/2023 10/10/2022 Adult BMI Screening 10/19/2023 10/18/2022 Depression Screening 10/19/2023 10/18/2022 Influenza Vaccine 02/21/2025 04/18/2022 Medical Devices Not on file Insurance [employer]
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
--- OUTSIDE RECORDS SUMMARY | 2025-03-24 09:24 | XMS_ITS | Encounter Summary ---
Author Organization [facility] Address [address] [place] [address] Care Team Providers Care Spout Worker Name Role Phone Perlita Liu NP Primary Care Provider Vinicio Tamez MD Unavailable [phone] Jaswant Zaidi DO Unavailable Encounter Details Date Type Department Care Team (Late st Contact Info) Description 09/06/2024 External Result Encounter [facility] External Department Unsolicited Jaswant Zaidi, DO [address] [place] [address] Social History Tobacco Use Types Packs/Day Years [...] [address] [place] [address] Rupert Rolle MD [address], [place] [id number] 06/07/2025 8:45 AM EST Office Visit [facility] [address] [place] [address] Jaswant Zaidi DO [address] [place] [address] documented as of this encounter Procedures Procedure Name Priority Date/Time Associated Diagnosis Comments ECG 12-LEAD 09/06/2024 7:13 AM EDT documented in this encounter Results * ECG 12 lead (09/06/2024 7:13 AM EDT) 09/06/2024 7:13 AM EDT [facility] - 09/06/2024 12:55 PM EDT [facility] Main [address] [address] Electrocardiograph Report Signed Patient: Valente Lucio MR#: [id number] 34 : 1950 Acct:[id number] Age/Sex: 74 / M ADM Date: 09/06/24 Loc: Room: Type: [facility] Attending Dr: Jaswant Zaidi DO Ordering [...] By Jose Cervantes MD 0 09/06/24 1255 Procedure Note Jose Cervantes MD - 09/06/2024 [facility] Main [place] [address] [place] [address] Electrocardiograph Report Signed Patient: Valente Lucio DMR#: [id number] 34 : 1950cct:[id number] Age/Sex: 74 / MADM Date: 09/06/24 Loc: Room:Type: [facility] Attending Dr: Jaswant Zaidi DO Ordering [...] Inferior leads Confirmed by JOSE CERVANTES MD ([id number]) on 09/06/2024 12:55:02 PM Referred By: Electronically Signed By: JOSE CERVANTES MD Transcribed By: MUS Signed By Jose Cervantes MD0 09/06/24 1255 us Jaswant Zaidi DO ECG ORDERABLES Final Resul t [facility] [address] [place] [address], documented in this encounter Visit Diagnoses Not on filedocumented in this encounter Care Teams Spout Worker Relationship Specialty Start Date End Date Perlita Liu NP [facility] [place] [address] PCP - General Family Medicine 12/02/23 Vinicio Tamez MD [address] [place] [address] Referring Physician Gastroenterology 12/15/23 Jaswant Zaidi DO [address] [place] [address] Otolaryngology 12/15/23 documented as of this encounter
--- OUTSIDE RECORDS SUMMARY | 2025-03-24 09:24 | XMS_ITS | Encounter Summary ---
Author Organization [facility] Address [address] [facility] [place] [address] Care Team Providers Care Tooth Polisher Name Role Phone Perlita Liu NP Primary Care Provider Vinicio Tamez MD Unavailable [phone] Jaswant Zaidi DO Unavailable [phone] Encounter Details Date Type Department Care Team (Late st Contact Info) Description 12/10/2023 Abstract [facility] [address] [place] [phone] Swetha Ambrose MA Social History Tobacco Use Types Packs/Day Years [...] Office Visit [facility] [address] [facility] [place] [phone] Rupert Rolle MD [address] [place] [address] 06/07/2025 8:45 AM EST Office Visit [facility] [address] [place] [address] Jaswant Zaidi DO [address] [place] [address] documented as of this encounter Visit Diagnoses Not on filedocumented in this encounter Care Teams Tooth Polisher Relationship Specialty Start Date End Date Perlita Liu NP [address] [place] [address] PCP - General Family Medicine 12/02/23 Vinicio Tamez MD [address] [place] [address] Referring Physician Gastroenterology 12/15/23 Jaswant Zaidi DO [address] [place] [address] Otolaryngology 12/15/23 documented as of this encounter
--- OUTSIDE RECORDS SUMMARY | 2025-03-24 09:24 | XMS_ITS | Encounter Summary ---
Author Organization [facility] Address [id number] [address] [place] [address] Care Team Providers Care Tsa Screener Name Role Phone Vimal Haque DO Primary Care Provider [phone] Encounter Details Date Type Department Care Team (Late st Contact Info) Description 10/10/2022 [facility] - [facility] [address] [place] [address] Vimal Haque DO [address] [place] [address] Social History Tobacco Use Types Packs/Day Years Used Date Smoking Tobacco: Former Cigarettes 1 40 Smokeless Tobacco: Never Alcohol Use Standard Drinks/Week Comments Yes 12 (1 standard drink = 0.6 oz pu re alcohol) PHQ-2 Answer Date Recorded Total Score 0 10/10/2022 Sex and Gender Information Value Date Recorded Sex Assigned at Not on file Legal Sex Male 9:51 AM EST Gender Identity Not on file Sexual Orientation Not on file documented as of this encounter Miscellaneous Notes * Telephone Encounter - Gale Aranda - 10/10/2022 11:20 AM EDT [facility] called and said they received your referral but they are not in network with [facility]. I just got off the phone with Marly[facility] and they do accept [facility]. Please fax new referral to [phone]. Thanks documented in this encounter Plan of Treatment Not on file documented as of this encounter Visit Diagnoses Not on filedocumented in this encounter Additional Health Concerns Assessment Noted Time PHQ-9 Depression Total Score: 0 10/11/19 8:26 AM EDT documented as of this encounter Care Teams Tsa Screener Relationship Specialty Start Date End Date Vimal Haque DO [address] [place] [address] PCP - General Internal Medicine 07/18/22 11/21/22 documented as of this encounter
--- OUTSIDE RECORDS SUMMARY | 2025-03-24 09:24 | XMS_ITS | Encounter Summary ---
Author Organization [facility] Address [id number] [address] [place] [address] Care Team Providers Care Gun Striper Name Role Phone Vimal Haque DO Primary Care Provider [phone] Encounter Details Date Type Department Care Team (Late st Contact Info) Description 08/15/2022 [facility]phone [facility] - Family Medicine [address] [place] [address] Vimal Haque DO [address] [place] [address] Social History Tobacco Use Types Packs/Day Years [...] * Telephone Encounter - Gale Aranda - 08/15/2022 10:02 AM EST Pt's called today needing the Lyrica sent to [facility] of [facility]. She said [facility] will not accept coupons and it was going to be much more expensive. Thanks * Telephone Encounter - Vimal Haque DO - 08/15/2022 10:02 AM EST I cannot write a new prescription until September 11. The original prescription sent in June was for3 months. However, she can request that [facility] transfer the remaining one month of the original Lyrica prescription to [facility]. * Telephone Encounter - Georgia Rai CMA - 08/15/2022 10:02 AM EST Left a message for the patient to call us back * Telephone Encounter - Tri Hernandez CMA - 08/15/2022 10:02 AM EST Called, was getting upset... [facility], and now they are upset and [facility] cannot transfer back. I called [facility] said they need a new script, as the refills were transferreed out. * Telephone Encounter - Tri Hernandez CMA - 08/15/2022 10:02 AM EST Pt's called, said [facility] has lyrica for $15, [facility] wants $150 for it, so I let her know I am waiting back to hear from you. * Telephone Encounter - Vimal Haque DO - 08/15/2022 10:02 AM EST Please confirm with [facility] that they cannot get the original Rx back from [facility] * Telephone Encounter - Tri Hernandez CMA - 08/15/2022 10:02 AM EST Yes, I confirmed [facility] needs a new script. documented in this encounter Plan of Treatment Not on file documented as of this encounter Visit Diagnoses Not on filedocumented in this encounter Additional Health Concerns Assessment Noted Time PHQ-9 Depression Total Score: 0 07/11/19 9:07 AM EST documented as of this encounter Care Teams Gun Striper Relationship Specialty Start Date End Date Vimal Haque DO [address] [place] [address] PCP - General Internal Medicine 07/18/22 11/21/22 documented as of this encounter
--- OUTSIDE RECORDS SUMMARY | 2025-03-24 09:24 | XMS_ITS | Encounter Summary ---
Author Organization [facility] Address [address] [facility] [facility] [place] [address] Care Team Providers Care Elementary Librarian Name Role Phone Perlita Liu NP Primary Care Provider Vinicio Tamez MD Unavailable [phone] Jaswant Zaidi DO Unavailable [phone] Encounter Details Date Type Department Care Team (Late st Contact Info) Description 12/03/2023 Abstract [facility] [address] [place] [phone] Swetha Ambrose MA Social History Tobacco Use [...] Office Visit [facility] [address] [facility] [place] [address] Rupert Rolle MD [address] [place] [address] 06/07/2025 8:45 AM EST Office Visit [facility] [address] [place] [address] Jaswant Zaidi DO [address] [place] [address] documented as of this encounter Visit Diagnoses Not on filedocumented in this encounter Care Teams Elementary Librarian Relationship Specialty Start Date End Date Perlita Liu NP [address] [place] [address] PCP - General Family Medicine 12/02/23 Vinicio Tamez MD [address] [place] [address] Referring Physician Gastroenterology 12/15/23 Jaswant Zaidi DO [address] [place] [address] Otolaryngology 12/15/23 documented as of this encounter
--- OUTSIDE RECORDS SUMMARY | 2025-03-24 09:24 | XMS_ITS | Patient Health Record ---
Author Organization [facility] [place] Address [address] [place] [address] Care Team Providers Care Antiquer Name Role Phone Shaikh Ruiz MD Primary Care Provider Unavaila ble Allergies Allergen (clinical drug ingredient) Drug/Non Drug Allergy documented on EMR Reaction Allergy Type Onset Date Status baclofen Baclofen Muscle Stiffness Drug Allergy Active cyclobenzaprine Cyclobenzaprine Muscle Stiffness Drug Allergy Active Reason For Referral No Information Medications Medication SIG (Take, Route, Frequency, Duration) Notes Start Date End Date Status Aspirin 81 81 MG 1 tablet Orally Once a day Active Citalopram Hydrobromide 20 MG 1 tablet Orally Once a day Active Losartan Potassium 50 MG 1 tablet Orally Once a day Active Ventolin HFA 108 (90 Base) MCG/ACT 2 puffs as needed for SOB Inhalation every 4 hrs; Duration: 30 days May substitute with ProAir, Proventil, Ventolin, or generic albuterol - whichever is covered and cheapest. 10/22/2022 Active Pregabalin 150 MG 1 capsule Orally Once a day Active rOPINIRole HCl 0.5 MG 1 tablet 1 to 3 hours before bedtime Orally Once a day Active Rosuvastatin Calcium 20 MG 1 tablet Orally Once a day Active Tamsulosin HCl 0.4 MG 1 capsule Orally Once a day Active Social History Tobacco Use: Social History Observation Description Date Details (start date - stop date) Former Smoker NA - NA Tobacco Use/Smoking Question Answer Notes Patient is a former smoker How long has it been since y ou last smoked? 1-5 years Additional Findings: Tobacco Non-User Ex -moderate cigarette smoker (10-19/day) Problems Problem Type SNOMED Code ICD Code Onset Dates Problem Status W/U Status Risk Notes Problem Cerebral infarction (625314835) Cerebral infarction, unspecified (I63.9) Active confirmed Problem Chronic obstructive pulmonary disease (37396210) Chronic obstructive pulmonary disease (J44.9) Active confirmed Problem Obstructive sleep apnea (25996526) Obstructive sleep apnea (G47.33) Active confirmed Problem Left hemiplegia (009383094) Left hemiplegia (G81.94) Active confirmed Problem Ex-tobacco user (finding) (480400385) History of tobacco abuse (Z87.891) Active confirmed = 40 pack-year history (Quit 2019) Plan Of Treatment No Information Insurance Providers Payer Name Payer Address Payer Phone Subscriber Number Group Number Insured Name Patient Relationship to Insured Coverage Start Date Coverage End Date [employer] [address] [place] [phone] [id number] Joy Self - patient is the insured Medical (General) History Medical History History ICD Code Chronic obstructive pulmonary disease J4 4.9 Obstructive sleep apnea G47.33 Cerebral infarction, unspecified I63.9 Left hemiplegia G81.94 History of tobacco abuse Z87.891 Surgical History Surgery Date(Month/Year) Left Leg-Hematoma Hospitalization History Reason Date(Month/Year) Stroke 12/14/2019
--- OUTSIDE RECORDS SUMMARY | 2025-03-24 09:24 | XMS_ITS | Encounter Summary ---
Author Organization [facility] Address [id number] [address] [place] [address] Care Team Providers Care Storage Consultant Name Role Phone Unavailable Primary Care Provider Unavailabl e Reason for Visit * Reason Comments Med Refill Encounter Details Date Type Department Care Team (Late st Contact Info) Description 11/25/2022 Refill [facility] - Family Medicine [address] [place] [address] Vimal Haque, [address] [place] [address] Cerebrovascular accident (CVA) due to thrombosis of right middle cerebral artery ([facility]-HCC) Social History Tobacco Use Types Packs/Day Years [...] as of this encounter Visit Diagnoses Diagnosis Cerebrovascular accident (CVA) due to thrombosis of right middle cerebral artery (CMS-HCC) documented in this encounter Additional Health Concerns Assessment Noted Time PHQ-9 Depression Total Score: 0 10/19/19 23 8:23 AM EDT documented as of this encounter
--- OUTSIDE RECORDS SUMMARY | 2025-03-24 09:24 | XMS_ITS | Encounter Summary ---
Author Organization [facility] Address [address] [place] [place] [address] Care Team Providers Care Spring Tier Name Role Phone Perlita Liu NP Primary Care Provider Vinicio Tamez MD Unavailable Jaswant Zaidi DO Unavailable [phone] Encounter Details Date Type Department Care Team (Late st Contact Info) Description 01/23/2024 External Result Encounter [facility] External Department Unsolicited Nabil Fox, DO [address] [place] [address] Social History Tobacco Use Types Packs/Day Years [...] [address] [place] [phone] Rupert Rolle MD [address] [facility] [address] Russ [address] [place] [address] [phone] 06/07/2025 8:45 AM EST Office Visit [facility] [address] [place] [phone] Jaswant Zaidi, [address] [place] [address] documented as of this encounter Procedures Procedure Name Priority Date/Time Associated Diagnosis Comments XR CHEST 2 VIEWS 01/23/2024 2:51 PM EDT documented in this encounter Results * XR chest 2 views (01/23/2024 2:51 PM EDT) Anatomical Region Laterality Modality Chest Radiographic Munira ging 01/23/2024 2:51 PM EDT Impressions 01/23/2024 2:54 PM EDT NO ACUTE CARDIOPULMONARY ABNORMALITY. Impression dictated by: Yandel Thomas Jr., D.O.01/23/2024 2:52 PM Dictation Location: [facility] Transcribed By: [facility] 01/23/24 1452 Dictated By: Yandel Thomas Jr, DO 01/23/24 1451 Signed By: <Electronically signed by Yandel Thomas Jr, DO in OV> 01/23/24 1452 Narrative 01/23/2024 2:54 PM EDT [facility] Main [address] [address] XRay Report Signed Patient: Valente Lucio MR#: [id number] 34 : 1950 Acct:[id number] Age/Sex: 73 / M ADM Date: 01/23/24 Loc: XT Room: Type: [facility] RCR Attending Dr: Nabil Fox II DO Copies to: MARY LOU Mtz II, DO Ordering Provider: Nabil Fox II, DO Date of Service: 01/23/24 XR/XR chest 2V*: cough, adventitious lung sounds- right lung Chest 2 views CLINICAL HISTORY: Cough. COMPARISON: None FINDINGS: Heart normal size. Lungs are clear. No free air. XR/XR chest 2V* Procedure Note Radiology, Radiologist, - 01/23/2024 [facility] Main [place] [address] [place] [address] XRay Report Signed Patient: Valente Lucio DMR#: [id number] 36 : 1950cct:[id number] Age/Sex: 73 / MADM Date: 01/23/24 Loc: XT Room:Type: [facility] RCR Attending Dr: Nabil Fox II DO Copies to: MARY LOU Mtz II, DO Ordering Provider: Nabil Fox II, DO Date of Service: 01/23/24 XR/XR chest 2V*: cough, adventitious lungsounds-right lung Chest 2 views CLINICAL HISTORY: Cough. COMPARISON: None FINDINGS: Heart normal size. Lungs are clear. No free air. XR/XR chest 2V* IMPRESSION: NO ACUTE CARDIOPULMONARY ABNORMALITY. Impression dictated by: Yandel Thomas Jr., D.O.01/23/2024 2:52 PM Dictation Location: [place] [address] Transcribed By: [facility] 01/23/24 1452 Dictated By: Yandel Thomas Jr, DO 01/23/24 1451 Signed By: <Electronically signed by Yandel Thomas Jr, inOV> 01/23/24 1452 Nabil Fox DO IMG XR PROCEDURES Final R esult documented in this encounter Visit Diagnoses Not on filedocumented in this encounter Care Teams Spring Tier Relationship Specialty Start Date End Date Perlita Liu NP [address] [place] [address] PCP - General Family Medicine 12/02/23 Vinicio Tamez MD [address] [place] [address] Referring Physician Gastroenterology 12/15/23 Jaswant Zaidi DO [address] [place] [address] Otolaryngology 12/15/23 documented as of this encounter
--- OUTSIDE RECORDS SUMMARY | 2025-03-24 09:24 | XMS_ITS | Encounter Summary ---
Author Organization [facility] Address [id number] [address] [place] [address] Care Team Providers Care Pedal Assembler Name Role Phone Vimal Haque DO Primary Care Provider [phone] Reason for Visit * Reason Comments Med Refill Encounter Details Date Type Department Care Team (Late st Contact Info) Description 10/25/2022 Refill [facility] - Family Medicine [address] [facility] [place] [address] Vimal Haque DO [address] [place] [address] Cerebrovascular accident (CVA) due to thrombosis of right middle cerebral artery ([facility]) Social History Tobacco Use Types Packs/Day Years [...] Time PHQ-9 Depression Total Score: 0 10/19/19 8:23 AM EDT documented as of this encounter Care Teams Pedal Assembler Relationship Specialty Start Date End Date Vimal Haque DO [address] [place] [address] PCP - General Internal Medicine 07/18/22 11/21/22 documented as of this encounter
--- OUTSIDE RECORDS SUMMARY | 2025-03-24 09:24 | XMS_ITS | Encounter Summary ---
Author Organization [facility] Address [id number] [address] [place] [address] Care Team Providers Care Elementary Assistant Teacher Name Role Phone Vimal Haque DO Primary Care Provider [phone] Encounter Details Date Type Department Care Team (Late st Contact Info) Description 10/25/2022 Orders Only [facility] - Family Medicine [address] [place] [address] Vimal Haque DO [address] [place] [address] Social History Tobacco Use Types Packs/Day Years [...] documented as of this encounter Care Teams Elementary Assistant Teacher Relationship Specialty Start Date End Date Vimal Haque DO [address] [place] [address] PCP - General Internal Medicine 07/18/22 11/21/22 documented as of this encounter
--- OUTSIDE RECORDS SUMMARY | 2025-03-24 09:24 | XMS_ITS | Encounter Summary ---
Author [facility] Address [id number] [address] [place] [address] Care Team Providers Care Taxi Driver Supervisor Name Role Phone Vimal Haque Primary Care Provider [phone] Encounter Details Date Type Department Care Team (Late st Contact Info) Description 10/24/2022 Orders Only [facility] - Family Medicine [address] [place] [address] Georgia Rai CMA Chronic obstructive pulmonary disease, unspecified COPD type (CMS-HCC); MEDHAT (obstructive sleep apnea) Social History Tobacco [...] on file documented as of this encounter Procedures Procedure Name Priority Date/Time Associated Diagnosis Comments AMB REFERRAL TO PULMONOLOGY Routine 10/24/2022 4:34 PM EDT Chronic obstructive pulmonary disease, unspecified COPD type ([facility]) MEDHAT (obstructive sleep apnea) documented in this encounter Results * Ambulatory referral to Pulmonology (10/24/2022 4:34 PM EDT) Vimal Haque DO OUTPATIENT REFERRAL ORDERABLES F inal Result MANUALLY TRANSCRIBED RESULTS documented in this encounter Visit Diagnoses Diagnosis Chronic obstructive pulmonary disease, unspecified COPD type (CMS-HCC) MEDHAT (obstructive sleep apnea) Obstructive sleep apnea (adult) (pediatric) documented in this encounter Additional Health Concerns Assessment Noted Time PHQ-9 Depression Total Score: 0 10/19/19 23 8:23 AM EDT documented as of this encounter Care Teams Taxi Driver Supervisor Relationship Specialty Start Date End Date Vimal Haque DO [address] [place] [address] PCP - General Internal Medicine 07/18/22 11/21/22 documented as of this encounter
--- OUTSIDE RECORDS SUMMARY | 2025-03-24 09:24 | XMS_ITS | Encounter Summary ---
Author Organization [facility] Address [id number] [address] [place] [address] Care Team Providers Care Multimedia Specialist Name Role Phone Vimal Haque DO Primary Care Provider [phone] Encounter Details Date Type Department Care Team (Late st Contact Info) Description 07/15/2022 Orders Only [facility] - Family Medicine [address] [place] [address] Vimal Haque DO [address] [place] [address] Social History Tobacco Use Types Packs/Day Years [...] have Coronavirus / COVID-19? No / Unsure 07/11/2022 8:52 AM EST documented as of this encounter Plan of Treatment Not on file documented as of this encounter Visit Diagnoses Not on filedocumented in this encounter Additional Health Concerns Assessment Noted Time PHQ-9 Depression Total Score: 0 07/11/19 9:07 AM EST documented as of this encounter Care Teams Multimedia Specialist Relationship Specialty Start Date End Date Vimal Haque DO [address] [place] [address] PCP - General Internal Medicine 07/18/22 11/21/22 documented as of this encounter
--- OUTSIDE RECORDS SUMMARY | 2025-03-24 09:24 | XMS_ITS | Encounter Summary ---
Author Organization [facility] Address [id number] [address] [place] [address] Care Team Providers Care Fashion Marketer Name Role Phone Vimal Haque DO Primary Care Provider [phone] Reason for Visit * Reason Comments Med Refill Encounter Details Date Type Department Care Team (Late st Contact Info) Description 08/15/2022 Refill [facility] - Family Medicine [address] [place] [address] Vimal Haque DO [address] [place] [address] Cerebrovascular accident (CVA) due to thrombosis of right middle cerebral artery ([facility]-HCC) Social History Tobacco Use Types Packs/Day [...] documented as of this encounter Care Teams Fashion Marketer Relationship Specialty Start Date End Date Vimal Haque DO [address] [place] [address] PCP - General Internal Medicine 07/18/22 11/21/22 documented as of this encounter
--- OUTSIDE RECORDS SUMMARY | 2025-03-24 09:24 | XMS_ITS | Encounter Summary ---
Author Organization [facility] Address [id number] [address] [place] [address] Care Team Providers Care Meter Reading Clerk Name Role Phone Unavailable Primary Care Provider Unavailabl e Reason for Visit * Reason Comments Med Refill Encounter Details Date Type Department Care Team (Late st Contact Info) Description 12/25/2022 Refill [facility] - Family Medicine [address] [place] [address] Vimal Haque, [address] [place] [address] Benign prostatic hyperplasia with urinary frequency Social History Tobacco Use Types Packs/Day Years [...] as of this encounter Visit Diagnoses Diagnosis Benign prostatic hyperplasia with urinary frequency documented in this encounter Additional Health Concerns Assessment Noted Time PHQ-9 Depression Total Score: 0 10/19/19 23 8:23 AM EDT documented as of this encounter
--- OUTSIDE RECORDS SUMMARY | 2025-03-24 09:24 | XMS_ITS | Encounter Summary ---
Author Organization [facility] Address [id number] [address] [place] [address] Care Team Providers Care Hand Woodworking Sander Name Role Phone Unavailable Primary Care Provider Unavailabl e Encounter Details Date Type Department Care Team (Late st Contact Info) Description 11/22/2022 Telephone [facility] - Family Medicine [address] [place] [address] Vimal Haque, [address] [place] [address] Social History Tobacco Use Types Packs/Day Years [...] Miscellaneous Notes * Telephone Encounter - Karlene Reeves - 11/22/2022 8:39 AM EDT ----- Message from Vimal Haque DO sent at 10/10/2022 5:33 PM EDT ----- COPD recheck/MEDHAT recheck * Telephone Encounter - Karlene Reeves - 11/22/2022 8:39 AM EDT Called and talked to the patients and they switched providers * Telephone Encounter - Vimal Haque DO - 11/22/2022 8:39 AM EDT Message noted. No longer patient here. documented in this encounter Plan of Treatment Not on file documented as of this encounter Visit Diagnoses Not on filedocumented in this encounter Additional Health Concerns Assessment Noted Time PHQ-9 Depression Total Score: 0 10/19/19 8:23 AM EDT documented as of this encounter
--- OUTSIDE RECORDS SUMMARY | 2025-03-24 09:24 | XMS_ITS | Encounter Summary ---
Author Organization [facility] Address [address] [facility] [email or web address] [address] Care Team Providers Care Retail Associate Manager Bilingual Name Role Phone Perlita Liu NP Primary Care Provider Vinicio Tamez MD Unavailable [phone] Jaswant Zaidi DO Unavailable [phone] Encounter Details Date Type Department Care Team (Late st Contact Info) Description 12/09/2023 Abstract [facility] [address] [place] [phone] Swetha Ambrose MA Social History Tobacco Use [...] Office Visit [facility] [address] [facility] [email or web address] [place] [address] Rupert Rolle MD [address] [facility] [address] [place] [address] 06/07/2025 8:45 AM EST Office Visit [facility] [address] [place] [address] Jaswant Zaidi DO [address] [place] [address] documented as of this encounter Visit Diagnoses Not on filedocumented in this encounter Care Teams Retail Associate Manager Bilingual Relationship Specialty Start Date End Date Perlita Liu NP [address] [place] [address] PCP - General Family Medicine 12/02/23 Vinicio Tamez MD [address] [place] [address] Referring Physician Gastroenterology 12/15/23 Jaswant Zaidi DO [address] [place] [address] Otolaryngology 12/15/23 documented as of this encounter
--- NOTE | 2025-03-24 09:42 | CT_ITS ---
The [address] [address] Patient Name: IVIS GAN MRN: [id number] date: 1950 Sex: M Assigned Patient Location: CT Current Patient Location: CT Accession/Order Number: [id number] Exam Date: 03/24/2025 09:35 Report Date: 03/24/2025 11:03 At the request of: KAYLEY CHRIS Procedure: CT lung screening low-dose LOW-DOSE SCREENING CHEST CT WITHOUT CONTRAST COMPARISON: 05/14/2023 CLINICAL DATA: Former smoker with 40 pack year history of tobacco use. Spiral axial unenhanced low-dose images were obtained through the chest. Images were reviewed using both narrow and wide window settings. This CT exam was performed using one or more following dose reduction techniques: Automated exposure control, adjustment of the mA and/or kV according to patient size, or use of iterative reconstruction technique. The heart is within normal limits for size. There is no pericardial effusion. Coronary artery disease is seen. No aortic aneurysm is identified. Minor plaque is visualized at the aortic arch and proximal great vessels. A few small nonpathologic mediastinal lymph nodes are again seen. There is a tiny hiatal hernia. Old healed rib fractures are present. There are degenerative changes at the spine. Minor atelectasis or scarring is present at the bases, greater on the right. There is no developing consolidation, pleural effusion or pneumothorax. No developing pulmonary nodularity is seen. Limited cuts through the upper abdomen show additional atherosclerotic disease. CT/CT lung screening low-dose IMPRESSION: MILD ATELECTASIS OR SCARRING. NO DEVELOPING PULMONARY NODULARITY. Lung RADS category 1 - negative Twelve-month low-dose CT follow-up suggested Impression dictated by: Linda Ya M.D. 03/24/2025 11:03 AM Dictation Location: [place] [address] Electronically authenticated by: [id number] Y Date: 03/24/2025 11:03
== END 2025-03-24 09:22 | disposition home or self-care (01) ==
LOC: CT 09:21
PROVIDERS: PCP Nurse Practitioner Family; Visit Provider Nurse Practitioner Family
DX: Z87.891 Personal history of nicotine dependence (principal); Z12.2 Encounter for screening for malignant neoplasm of respiratory organs
CPT/HCPCS: 71271